=== PATIENT | female | born 1940 | race Caucasian/White ===

== ENCOUNTER 2016-09-09 15:57 | Inpatient (IN) | payer OTHER, MEDICARE ==
[2016-09-09] VITALS (7 sets, daily range): BP systolic 103–143; BP diastolic 50–68; PULSE 76–110; RESP 20–22; TEMP 99.4; O2SAT 88–99
[~2016-09-09] VITALS: Ht 152.4 cm; Wt 62.6 kg
[~2016-09-09 15:57] MED LIST: ADVA250A INH; ALEN70TA39 PO; AMLO10 PO; CEFU1TAB43 PO; CYAN1000P SQ; DOCU1CAP39 PO; DUONSOL2 NEB; FURO20 PO; GABA300C3 PO; HYDR-3129 PO; LEVO75TA3 PO; LISI20 PO; OSEL30 PO; OSEL45 PO; PRED10PA PO; RIVA20 PO; VENTAER INH; Z.0.OXYGEN INH
[2016-09-09] MEDS ORDERED: OXYC1TAB36 PO (16:09)
[2016-09-09] MEDS ORDERED: ALEN1TAB48 PO (16:09)
[2016-09-09] MEDS ORDERED: GABA600T PO (16:09)
[2016-09-09] MEDS ORDERED: AMLO10CA PO (16:09)
[2016-09-09] MEDS ORDERED: MIRTA15 PO (16:09)
[2016-09-09] MEDS ORDERED: XARE20TA PO (16:09)
--- NOTE | 2016-09-09 16:13 | PD ---
HPI Chief Complaint: Respiratory Symptoms Time Seen by Provider: 16:09 Travel History International Travel<30 days: No Contact w/Intl Traveler<30days: No Traveled to known affect area: No History of Present Illness HPI 76-year-old female with history of COPD, presents to the ER today because she woke up this morning, felt very shaky, try to get up, was weak, and short of breath. She was given a BiPAP by EMS but she was not tolerating and, was put on non-rebreather. She reports feeling some improvement currently. She denies any chest pains, fevers, vomiting, or any other symptoms. She states that she is feeling a little better but is still having generalized weakness. Modifying Factors: None Associated Signs & Symptoms: Tremulous, general weakness, shortness of breath Risk Factors: COPD PFSH Past Medical History Arthritis: Yes Anxiety: No Depression: No Cancer: Yes Cardiovascular Problems: Yes High Cholesterol: Yes Chemotherapy: No COPD: Yes Diabetes: No Diminished Hearing: Yes Deep Vein Thrombosis: Yes (x2 ) Fibromyalgia: Yes Gastrointestinal Disorders: No Genitourinary: Yes Hypertension: Yes Immune Disorder: No Implanted Vascular Access Dvce: No Musculoskeletal: Yes Neurologic: No Reproductive: No Respiratory: Yes (HOME O2/OXYGEN DEPENDENT) Radiation Therapy: Yes (FOR GOITER) Thyroid Disease: Yes Menopausal: Yes Tubal Ligation: Yes Past Surgical History Ear Surgery: Yes (INPLANT RT/ CATARACT) Eye Surgery: Yes (CATARACT) Gynecologic Surgery: Yes (TUBAL LIGATION) Tonsillectomy: Yes Other Surgery: Yes Social History Alcohol Use: No Tobacco Use: No (quit 2014 smoked 1 ppd cigs for 57 yrs) Substance Use: No Allergies-Medications (Allergen,Severity, Reaction): Coded Allergies: Azithromycin (Verified Allergy, Severe, STOMACH CRAMPS, 09/09/16) Penicillin (Verified Allergy, Severe, 09/09/16) Reported Meds & Prescriptions Reported Meds & Active Scripts Active Reported Alendronate (Alendronate Sodium) 70 Mg Tab 70 Mg PO Q7D Mirtazapine 15 Mg Tab 15 Mg PO HS Xarelto (Rivaroxaban) 20 Mg Tab 20 Mg PO DAILY Amlodipine-Benazepril 10-20 Mg Cap 1 Cap PO DAILY Gabapentin 600 Mg Tab 600 Mg PO QID Oxycodone-Acetaminophen 10-325 mg Tab 1 Tab PO Q6H PRN Review of Systems Except as stated in HPI: all other systems reviewed are Neg Physical Exam Narrative GENERAL: Well-developed elderly white female patient currently in mild acute distress at rest, tremulous, with nasal cannula, awake and oriented 3. SKIN: Warm and dry. HEAD: Atraumatic. Normocephalic. EYES: Pupils equal and round. No scleral icterus. No injection or drainage. ENT: No nasal bleeding or discharge. Mucous membranes pink and moist. NECK: Trachea midline. No JVD. CARDIOVASCULAR: Regular rate and rhythm. No murmur appreciated. RESPIRATORY: No accessory muscle use. Breath sounds are equal and decreased throughout equal bilaterally. No wheezes, crackles, or rhonchi. GASTROINTESTINAL: Abdomen soft, non-tender, nondistended. Hepatic and splenic margins not palpable. MUSCULOSKELETAL: No obvious deformities. No clubbing. No cyanosis. No edema. NEUROLOGICAL: Awake and alert. No obvious cranial nerve deficits. Motor grossly within normal limits. Normal speech. PSYCHIATRIC: Appropriate mood and affect; insight and judgment normal. Data Data Last Documented VS Vital Signs Date Time Temp Pulse Resp B/P Pulse Ox O2 Delivery O2 Flow Rate FiO2 09/09/16 18:08 99 20 103/50 99 09/09/16 16:52 Nasal Cannula 4 09/09/16 16:01 99.4 Orders Complete Blood Count With Diff (09/09/16 16:09) Comprehensive Metabolic Panel (09/09/16 16:09) B-Type Natriuretic Peptide (09/09/16 16:09) Ckmb (Isoenzyme) Profile (09/09/16 16:09) Troponin I (09/09/16 16:09) Urinalysis - C+S If Indicated (09/09/16 16:09) Blood Culture (09/09/16 16:09) Iv Access Insert/Monitor (09/09/16 16:09) Electrocardiogram (09/09/16 16:09) Ecg Monitoring (09/09/16 16:09) Oximetry (09/09/16 16:09) Oxygen Administration (09/09/16 16:09) Chest, Single Ap (09/09/16 16:09) Sodium Chloride 0.9% Flush (Ns Flush) (09/09/16 16:15) Methylprednisolone So Succ Inj (Solumedr (09/09/16 16:15) Albuterol-Ipratropium Neb (Duoneb Neb) (09/09/16 16:15) Sodium Chlorid 0.9% 500 Ml Inj (Ns 500 M (09/09/16 17:15) Admit Order (Ed Use Only) (09/09/16 18:33) Labs Laboratory Tests Test 09/09/16 16:10 White Blood Count 7.3 TH/MM3 Red Blood Count 3.70 MIL/MM3 Hemoglobin 11.2 GM/DL Hematocrit 35.9 % Mean Corpuscular Volume 97.0 FL Mean Corpuscular Hemoglobin 30.2 PG Mean Corpuscular Hemoglobin 31.1 % Concent Red Cell Distribution Width 15.9 % Platelet Count 215 TH/MM3 Mean Platelet Volume 8.5 FL Neutrophils (%) (Auto) 70.9 % Lymphocytes (%) (Auto) 19.4 % Monocytes (%) (Auto) 7.1 % Eosinophils (%) (Auto) 0.9 % Basophils (%) (Auto) 1.7 % Neutrophils # (Auto) 5.2 TH/MM3 Lymphocytes # (Auto) 1.4 TH/MM3 Monocytes # (Auto) 0.5 TH/MM3 Eosinophils # (Auto) 0.1 TH/MM3 Basophils # (Auto) 0.1 TH/MM3 CBC Comment DIFF FINAL Differential Comment Sodium Level 146 MEQ/L Potassium Level 5.3 MEQ/L Chloride Level 108 MEQ/L Carbon Dioxide Level 35.2 MEQ/L Anion Gap 3 MEQ/L Blood Urea Nitrogen 43 MG/DL Creatinine 1.50 MG/DL Estimat Glomerular Filtration 34 ML/MIN Rate Random Glucose 94 MG/DL Calcium Level 8.8 MG/DL Total Bilirubin 0.3 MG/DL Aspartate Amino Transf 17 U/L (AST/SGOT) Alanine Aminotransferase 16 U/L (ALT/SGPT) Alkaline Phosphatase 31 U/L Total Creatine Kinase 78 U/L Troponin I LESS THAN 0.02 NG/ML B-Type Natriuretic Peptide 284 PG/ML Total Protein 6.1 GM/DL Albumin 3.0 GM/DL [facility] Medical Decision Making Medical Screen Exam Complete: Yes Emergency Medical Condition: Yes Medical Record Reviewed: Yes Interpretation(s) EKG shows normal sinus rhythm at a rate of 71 bpm with occasional PACs and a right bundle branch block pattern. No signs of acute ST-T elevations. Nonspecific inferior T-wave depressions. Laboratory Tests Test 09/09/16 16:10 Red Blood Count 3.70 MIL/MM3 (4.00-5.30) Hemoglobin 11.2 GM/DL (11.6-15.3) Mean Corpuscular Hemoglobin 31.1 % Concent (32.0-36.0) Neutrophils (%) (Auto) 70.9 % (16.0-70.0) Sodium Level 146 MEQ/L (136-145) Potassium Level 5.3 MEQ/L (3.5-5.1) Chloride Level 108 MEQ/L (98-107) Carbon Dioxide Level 35.2 MEQ/L (21.0-32.0) Anion Gap 3 MEQ/L (5-15) Blood Urea Nitrogen 43 MG/DL (7-18) Creatinine 1.50 MG/DL (0.50-1.00) Estimat Glomerular Filtration 34 ML/MIN (>89) Rate Alkaline Phosphatase 31 U/L (45-117) Troponin I LESS THAN 0.02 NG/ML (0.02-0.05) B-Type Natriuretic Peptide 284 PG/ML (0-100) Total Protein 6.1 GM/DL (6.4-8.2) Albumin 3.0 GM/DL (3.4-5.0) Differential Diagnosis General weakness, shortness of breath, hypoxiaCOPD exacerbation versus pneumonia versus CHF versus dehydration versus metabolic issues Narrative Course Chest x-ray did not show signs of acute pneumonia. She was given Solu-Medrol and DuoNeb's with some improvement and shortness of breath. It appears that she does have some underlying COPD exacerbation. Her lab work also shows significant dehydration with elevations in BUN/creatinine creatinine above baseline as well as high sodium. My plan would be to admit her for further evaluation of this point. Case was discussed with Dr. Hopkins for admission. Diagnosis Primary Impression: Hypernatremia Additional Impressions: Dehydration Chronic obstructive pulmonary disease with acute exacerbation Admitting Information Admitting Physician Requests: Admit La Nena Mccullough MD Sep 09, 2016 16:13
[2016-09-09] MEDS ORDERED: methylPREDNISolone SOD SUCC 125 MG/2 ML VIAL IVP ONE (16:15)
[2016-09-09] MEDS ORDERED: SODIUM CHLORIDE 0.9% FLUSH 10 ML FLUSH IVF PRN (16:15)
[2016-09-09] MEDS: RESP: ALBUTEROL 2.5 MG/IPRATROPIUM 0.5 MG NEB (SCH) INH ×2 (16:23→16:26)
[2016-09-09 16:38] LABS: AUTOMATED NEUTROPHIL # 5.2 TH/MM3 (1.8-7.7); BASOPHIL # 0.1 TH/MM3 (0-0.2); BASOPHIL % 1.7 % (0.0-2.0); EOSINOPHIL # 0.1 TH/MM3 (0-0.4); EOSINOPHIL % 0.9 % (0.0-4.0); HEMATOCRIT 35.9 % (35.0-46.0); HEMO FLAGS DIFF FINAL; LYMPH % 19.4 % (9.0-44.0); LYMPHOCYTE # 1.4 TH/MM3 (1.0-4.8); MEAN CORPUSCULAR HEMOGLOBIN 30.2 PG (27.0-34.0); MEAN CORPUSCULAR HGB CONC 31.1 % (32.0-36.0); MONO % 7.1 % (0.0-8.0); NEUT % 70.9 % (16.0-70.0); PLATELET COUNT 215 TH/MM3 (150-450); RED CELL DISTRIBUTION WIDTH 15.9 % (11.6-17.2); WHITE BLOOD COUNT 7.3 TH/MM3 (4.0-11.0)
[2016-09-09 16:46] LABS: CHLORIDE 108 MEQ/L (98-107); POTASSIUM 5.3 MEQ/L (3.5-5.1); SODIUM (NA) 146 MEQ/L (136-145)
[2016-09-09 16:50] LABS: ANION GAP 3 MEQ/L (5-15); BICARBONATE 35.2 MEQ/L (21.0-32.0); BLOOD UREA NITROGEN 43 MG/DL (7-18)
--- NOTE | 2016-09-09 16:52 | RADHPO ---
EXAM DATE/TIME: 09/09/2016 16:19 [facility] COMPARISON: CHEST SINGLE AP, August 26, 2015, 2:50. INDICATIONS : Short of breath. MEDICAL HISTORY : Chronic obstructive pulmonary disease. Hypertension SURGICAL HISTORY : Tubal ligation. ENCOUNTER: Initial ACUITY: 1 day PAIN SCORE: 0/10 LOCATION: Bilateral chest FINDINGS: There is a poor inspiratory result. The heart is enlarged. Patchy infiltrates are again noted within the right lung and left lung base and are unchanged. CONCLUSION: No significant change compared to 08/26/2015. Galen Pierre MD on September 09, 2016 at 16:46 Board Certified Radiologist. This report was verified electronically.
[2016-09-09 16:53] LABS: ALT (GPT) 16 U/L (10-53); AST (GOT) 17 U/L (15-37); GLOMERULAR FILTRATION RATE 34 ML/MIN (>89)
[2016-09-09 16:54] LABS: TOTAL BILIRUBIN ADULT 0.3 MG/DL (0.2-1.0)
[2016-09-09 16:56] LABS: ALKALINE PHOSPHATASE 31 U/L (45-117)
[2016-09-09 16:58] LABS: CREATINE KINASE 78 U/L (26-192)
[2016-09-09] MEDS ORDERED: SODIUM CHLORID 0.9% 500 ML INJ 500 ML IV ONE (17:15)
[2016-09-09] MEDS ORDERED: SODIUM CHLOR 0.9% 1000 ML INJ 1,000 ML IV SCH (19:29)
[2016-09-09] MEDS ORDERED: ACETAMINOPHEN 325 MG TAB PO PRN (19:30)
[2016-09-09] MEDS ORDERED: NALOXONE HCL 0.4 MG/ML AMP IV PRN (19:30)
[2016-09-09] MEDS ORDERED: SODIUM CHLORIDE 0.9% FLUSH 10 ML FLUSH IV FLUSH PRN (19:30)
[2016-09-09] MEDS ORDERED: ONDANSETRON HCL 4 MG/2 ML VIAL IVP PRN (19:30)
[2016-09-09] MEDS: RESP: ALBUTEROL 2.5 MG/IPRATROPIUM 0.5 MG NEB (SCH) NEB (20:23)
[2016-09-09] MEDS ORDERED: HEPARIN SODIUM - IV 10,000 UNITS/10 ML VIAL IV PRN ×2 (20:45)
[2016-09-09] MEDS: SODIUM CHLORIDE 0.9% FLUSH 10 ML FLUSH IV FLUSH SCH (21:00)
[2016-09-09] MEDS: MIRTAZAPINE 15 MG TAB PO SCH (21:20)
[2016-09-09 21:29] LABS: BLOOD, URINE NEG (NEG); GLUCOSE,URINE NEG (NEG); KETONE, URINE NEG (NEG); PH, URINE 5.5 (5.0-8.5)
[2016-09-09 21:34] LABS: NITRITE,URINE POS (NEG)
[2016-09-09 21:39] LABS: METHOD OF COLLECTION CATH; URINE COLOR YELLOW (YELLW/STRAW); WBC, URINE 0-2 /hpf (0-5)
[2016-09-09 21:40] LABS: BACTERIA, URINE MANY /hpf; COMMENT (UR) CULTURE INDICATED; CULTURE IF INDICATED CULTURE INDICATED; SQUAMOUS EPITHELIAL CELL URINE 0-2 /hpf (0-5)
[2016-09-09] MEDS: HEPARIN 25,000 UNITS-D5W 250 ML - PREMIX IV SCH (21:53)
[2016-09-09] MEDS ORDERED: LEVOFLOXACIN 750 MG PREMIX INJ 150 ML IV SCH (23:00)
[2016-09-09] MEDS: oxyCODONE/ACETAMINOPHEN 10 MG/325 MG TAB PO PRN (23:34)
[2016-09-09 23:51] LABS: POTASSIUM 5.2 MEQ/L (3.5-5.1)
[2016-09-10] VITALS (13 sets, daily range): BP systolic 129–151; BP diastolic 73–81; PULSE 78–92; RESP 20–26; TEMP 96.5–99.3; O2SAT 85–95
[2016-09-10 00:22] LABS: BICARBONATE 31.8 MEQ/L (21.0-32.0)
[2016-09-10] MEDS: RESP: ALBUTEROL 2.5 MG/IPRATROPIUM 0.5 MG NEB (PRN) NEB ×2 (00:50→04:24)
--- NOTE | 2016-09-10 02:39 | RADHPO ---
EXAM DATE/TIME: 09/10/2016 02:26 [facility] COMPARISON: CHEST SINGLE AP, September 09, 2016, 16:19. INDICATIONS : Shortness of breath. MEDICAL HISTORY : Chronic obstructive pulmonary disease. Hypertension. SURGICAL HISTORY : Tubal ligation. ENCOUNTER: Subsequent ACUITY: 2 days PAIN SCORE: Non-responsive. LOCATION: Left chest FINDINGS: There is cardiomegaly, interstitial prominence and patchy basilar airspace disease unchanged. Cardiom egaly and aortic calcification noted. Degenerative changes of the spine. CONCLUSION: No significant change has occurred. Kumar Leggett MD on September 10, 2016 at 2:37 Board Certified Radiologist. This report was verified electronically.
[2016-09-10 04:44] LABS: AUTOMATED NEUTROPHIL # 4.6 TH/MM3 (1.8-7.7); BASOPHIL # 0.1 TH/MM3 (0-0.2); HEMATOCRIT 33.9 % (35.0-46.0); LYMPH % 6.9 % (9.0-44.0); LYMPHOCYTE # 0.4 TH/MM3 (1.0-4.8); MEAN CELL VOLUME 95.7 FL (80.0-100.0); MEAN CORPUSCULAR HEMOGLOBIN 29.7 PG (27.0-34.0); MONO % 0.7 % (0.0-8.0); NEUT % 90.4 % (16.0-70.0); PLATELET COUNT 189 TH/MM3 (150-450); RED BLOOD COUNT 3.54 MIL/MM3 (4.00-5.30); RED CELL DISTRIBUTION WIDTH 15.7 % (11.6-17.2); WHITE BLOOD COUNT 5.1 TH/MM3 (4.0-11.0)
[2016-09-10 05:08] LABS: HEMO FLAGS AUTO DIFF
[2016-09-10 05:10] LABS: POTASSIUM 5.1 MEQ/L (3.5-5.1)
[2016-09-10 05:15] LABS: BICARBONATE 30.4 MEQ/L (21.0-32.0)
[2016-09-10] MEDS: oxyCODONE/ACETAMINOPHEN 10 MG/325 MG TAB PO PRN ×2 (05:24→13:36)
[2016-09-10 05:40] LABS: APTT (PATIENT) 93.1 SEC (24.3-30.1)
[2016-09-10 06:23] LABS: PLATELET ESTIMATE SMEAR NORMAL (NORMAL); PLATELET MORPHOLOGY NORMAL (NORMAL); SCAN/DIFF AUTO DIFF CONFIRMED
[2016-09-10] MEDS: RESP: ALBUTEROL 2.5 MG/IPRATROPIUM 0.5 MG NEB (SCH) NEB ×4 (07:20→19:41)
[2016-09-10 08:15] LABS: BLOOD GAS BASE EXCESS 5.5 mmol/L (-2-2); BLOOD GAS HCO3 31 mmol/L (22-26); BLOOD GAS O2 HGB SATURATION 84 % (90-100); BLOOD GAS OXYGEN CONTENT 12.5 Vol % (12.0-20.0); BLOOD GAS PCO2 53 mmHG (38-42); BLOOD GAS PO2 50 mmHG (61-120); BLOOD GAS TOTAL HGB 10.5 G/DL (12.0-16.0); TEMP CORR TO 98.6
[2016-09-10 08:17] LABS: CRITICAL VALUE YES; DRAW SITE RT RADIAL; LITER FLOW 6 L/M; NUMBER OF ARTERIAL PUNCTURES 1; OXYGEN DEVICE NASAL CANNULA; STAT YES; ULNAR PULSE PRESENT
[2016-09-10] MEDS: LISINOPRIL 20 MG TAB PO SCH ×2 (08:37→08:45)
[2016-09-10] MEDS: GABAPENTIN 300 MG CAP PO SCH (08:37)
[2016-09-10] MEDS: SODIUM CHLORIDE 0.9% FLUSH 10 ML FLUSH IV FLUSH SCH ×2 (08:37→21:00)
[2016-09-10] MEDS ORDERED: SODIUM POLYSTYRENE SULFONATE SUSP 15 GM/60 ML CUP PO ONE (09:00)
[2016-09-10] MEDS ORDERED: NON-FORMULARY DRUG (Amlodipine-Benazepril 1 CAP) PO SCH (09:00)
[2016-09-10] MEDS ORDERED: RIVAROXABAN 20 MG TAB PO SCH (09:00)
[2016-09-10] MEDS ORDERED: SODIUM CHLOR 0.9% 1000 ML INJ 1,000 ML IV SCH (10:30)
--- NOTE | 2016-09-10 10:40 | EKG ---
Date Performed: 09/09/2016 Time Performed: 16:01:18 PTAGE: 76 years EKG: Sinus rhythm with PAC(s) Left axis deviation RBBB with left anterior fascicular block Possible anterior infarct - age undetermined Inferior T wave changes are nonspecific Low QRS voltages in precordial leads Abnorm al ECG PREVIOUS TRACING : 08/25/2015 05.53 DOCTOR: Av Argueta Interpretating Date/Time 09/10/2016 10:39:08
--- NOTE | 2016-09-10 11:06 | HHI.HP ---
HPI Service [facility] Hospitalists Primary Care Physician Fernanda Fox MD Admission Diagnosis COPD exacerbation/dehydration/hypernatremia Diagnoses: Chief Complaint: Involuntary shaking SOB Weakness Travel History International Travel<30 Days: No Contact w/Intl Traveler <30 Da: No Traveled to Known Affected Are: No History of Present Illness This is 76-year-old female with a past medical history is significant for oxygen dependent COPD, hypertension, hypothyroidism, history of prior respiratory failure with intubation, pneumonia 1 year ago, polycystic kidney disease and CHF who presents to [facility] ED with complaints of uncontrollable shaking, slurred speech, weakness and shortness of breath. She was brought in by EMS on a BiPAP which she did not tolerate well and was placed on a nonrebreather. Patient denies any recent increase in cough or sputum production. She denies any recent illness including fever or chills, nausea/ vomiting, diarrhea or any other symptoms. While on the floor, patient developed burning chest pain across the anterior chest. In the ED, EKG revealed normal sinus rhythm with a rate of 71, occasional PACs and a right bundle branch block pattern, no signs of acute ST-T elevations and nonspecific inferior T-wave depressions. X-ray did not show any signs of acute pneumonia. She was given Solu-Medrol and DuoNeb nebs in the ED with some improvement in her shortness of breath. She is tachycardic with a low-grade temp of 99.3. White count is normal at 7.2 but she does have a left shift. Review of Systems 10 point review of systems completed and all pertinents negative except as stated in history of present illness Past Family Social History Past Medical History COPD - O2 dependent Prior respiratory failure with intubation Pneumonia CHF (grade I diastolic dysfunction) HTN Polycystic kidney disease DVT (diagnosed March 23) anemia dyslipidemia tobacco use fibromyalgia / arthritis Hx of Goiter s/p radiation therapy with subsequent hypothyroidism DJD spine Fatty liver with cholelithiasis Diverticulosis Past Surgical History Tonsillectomy Cataract surgery Tubal ligation Reported Medications Alendronate (Alendronate Sodium) 70 Mg Tab 70 Mg PO Q7D Mirtazapine 15 Mg Tab 15 Mg PO HS Xarelto (Rivaroxaban) 20 Mg Tab 20 Mg PO DAILY Amlodipine-Benazepril 10-20 Mg Cap 1 Cap PO DAILY Gabapentin 600 Mg Tab 600 Mg PO QID Oxycodone-Acetaminophen 10-325 mg Tab 1 Tab PO Q6H PRN Allergies: Coded Allergies: Azithromycin (Verified Allergy, Severe, STOMACH CRAMPS, 09/09/16) Penicillin (Verified Allergy, Severe, 09/09/16) Active Ordered Medications Current Medications Medications (Trade) Dose Ordered Sig/Lili Route Start Time Stop Time Status Last Admin (NS Flush) 2 ml UNSCH PRN IV FLUSH 09/09/16 19:30 (NS Flush) 2 ml BID IV FLUSH 09/09/16 21:00 (Tylenol) 650 mg Q4H PRN PO 09/09/16 19:30 (Zofran Inj) 4 mg Q6H PRN IVP 09/09/16 19:30 (Narcan Inj) 0.4 mg UNSCH PRN IV 09/09/16 19:30 (Neurontin) 600 mg DAILY PO 09/10/16 09:00 09/10/16 08:37 (Remeron) 15 mg HS PO 09/09/16 21:00 09/09/16 21:20 (Percocet 10-325 Mg) 1 tab Q6H PRN PO 09/09/16 19:30 09/10/16 05:24 (Norvasc) 10 mg DAILY PO 09/10/16 09:00 09/10/16 08:37 Lisinopril 20 mg 20 mg DAILY PO 09/10/16 09:00 (Heparin-D5W Inj) 250 ml @ 0 mls/hr TITRATE IV 09/09/16 20:45 09/09/16 21:53 (Heparin Inj) 5,000 units UNSCH PRN IV 09/09/16 20:45 Heparin Sodium (Porcine) 2500 units 2,500 units UNSCH PRN IV 09/09/16 20:45 (Levaquin 750 Mg Premix Inj) 150 ml @ 100 mls/hr Q24H IV 09/09/16 23:00 09/09/16 23:24 (Catapres) 0.1 mg Q6H PRN PO 09/10/16 09:00 Family History Family medical history noncontributory Social History Patient is a history of heavy tobacco use of one pack per day for 57 years but quit in 2013. She reports rare alcohol consumption a glass of wine. She denies illicit drug use. Physical Exam Vital Signs Vital Signs Date Time Temp Pulse Resp B/P Pulse Ox O2 Delivery O2 Flow Rate FiO2 09/10/16 08:55 91 Venturi Mask 50 09/10/16 08:00 98.2 87 20 139/79 86 09/10/16 07:22 89 Nasal Cannula 6.00 09/10/16 06:53 99.3 85 25 129/73 85 09/10/16 04:31 90 Nasal Cannula 5.00 09/10/16 04:28 90 Nasal Cannula 5.00 09/10/16 04:00 99.2 78 25 139/79 91 09/10/16 01:00 89 Nasal Cannula 5.00 09/10/16 00:00 97.2 84 26 148/81 92 09/09/16 23:30 92 Nasal Cannula 4.00 09/09/16 23:30 84 09/09/16 23:00 86 20 143/68 89 Nasal Cannula 4 09/09/16 21:37 81 87 Nasal Cannula 4 09/09/16 20:27 88 Nasal Cannula 4.00 09/09/16 18:08 99 20 103/50 99 09/09/16 16:52 76 20 113/55 96 Nasal Cannula 4 09/09/16 16:11 93 09/09/16 16:11 Non-Rebreather 10 09/09/16 16:01 99.4 110 22 136/58 89 Physical Exam GENERAL: This is a well-nourished, well-developed patient, in no apparent distress. SKIN: No rashes, ecchymoses or lesions. Cool and dry. HEAD: Atraumatic. Normocephalic. No temporal or scalp tenderness. EYES: Pupils equal round and reactive. Extraocular motions intact. No scleral icterus. No injection or drainage. ENT: Nose without bleeding, purulent drainage or septal hematoma. Throat without erythema, tonsillar hypertrophy or exudate. Uvula midline. Airway patent. NECK: Trachea midline. No lymphadenopathy. Supple, nontender, no meningeal signs. CARDIOVASCULAR: Sinus tachycardia with ectopic beat. RESPIRATORY: Diminished breath sounds. Bilateral diffuse inspiratory/ expiratory wheezing. GASTROINTESTINAL: Abdomen soft, non-tender, nondistended. No hepato-splenomegaly , or palpable masses. No guarding. MUSCULOSKELETAL: Extremities without clubbing, cyanosis, or edema. No joint tenderness, effusion, or edema noted. No calf tenderness. NEUROLOGICAL: Awake, alert, oriented. Moves all extremities. No focal neurological deficit. Speech appears normal. Laboratory Laboratory Tests Test 09/09/16 09/09/16 09/09/16 09/10/16 16:10 :17 22:55 04:20 White Blood Count 7.3 5.1 Red Blood Count 3.70 3.54 Hemoglobin 11.2 10.5 Hematocrit 35.9 33.9 Mean Corpuscular Volume 97.0 95.7 Mean Corpuscular Hemoglobin 30.2 29.7 Mean Corpuscular Hemoglobin 31.1 31.0 Concent Red Cell Distribution Width 15.9 15.7 Platelet Count 215 189 Mean Platelet Volume 8.5 8.6 Neutrophils (%) (Auto) 70.9 90.4 Lymphocytes (%) (Auto) 19.4 6.9 Monocytes (%) (Auto) 7.1 0.7 Eosinophils (%) (Auto) 0.9 0.0 Basophils (%) (Auto) 1.7 2.0 Neutrophils # (Auto) 5.2 4.6 Lymphocytes # (Auto) 1.4 0.4 Monocytes # (Auto) 0.5 0.0 Eosinophils # (Auto) 0.1 0.0 Basophils # (Auto) 0.1 0.1 CBC Comment DIFF FINAL AUTO DIFF Differential Comment AUTO DIFF CONFIRMED Sodium Level 146 146 147 Potassium Level 5.3 5.2 5.1 Chloride Level 108 108 108 Carbon Dioxide Level 35.2 31.8 30.4 Anion Gap 3 6 9 Blood Urea Nitrogen 43 40 36 Creatinine 1.50 1.40 1.20 Estimat Glomerular Filtration 34 36 44 Rate Random Glucose 94 223 148 Calcium Level 8.8 8.6 8.6 Total Bilirubin 0.3 Aspartate Amino Transf 17 (AST/SGOT) Alanine Aminotransferase 16 (ALT/SGPT) Alkaline Phosphatase 31 Total Creatine Kinase 78 Troponin I LESS THAN 0.02 B-Type Natriuretic Peptide 284 Total Protein 6.1 Albumin 3.0 Urine Collection Type CATH Urine Color YELLOW Urine Turbidity CLEAR Urine pH 5.5 Urine Specific [place] 1.027 Urine Protein NEG Urine Glucose (UA) NEG Urine Ketones NEG Urine Occult Blood NEG Urine Nitrite POS Urine Bilirubin NEG Urine Leukocyte Esterase NEG Urine WBC 0-2 Urine WBC Clumps RARE Urine Squamous Epithelial 0-2 Cells Urine Bacteria MANY Urine Hyaline Casts 3-5 Microscopic Urinalysis Comment CULTURE INDICATED Platelet Estimate NORMAL Platelet Morphology Comment NORMAL Activated Partial 93.1 Thromboplast Time Test 09/10/16 08:07 Blood Gas Puncture Site RT RADIAL Blood Gas Patient Temperature 98.6 Blood Gas HCO3 31 Blood Gas Base Excess 5.5 Blood Gas Oxygen Saturation 84 Arterial Blood pH 7.38 Arterial Blood Partial 53 Pressure CO2 Arterial Blood Partial 50 Pressure O2 Arterial Blood Oxygen Content 12.5 Arterial Blood 2.0 Carboxyhemoglobin Arterial Blood Methemoglobin 1.0 Blood Gas Hemoglobin 10.5 Oxygen Delivery Device NASAL CANNULA Blood Gas Liter Flow 6 Date/Time Procedure Status Source Growth 09/09/16 21:17 Urine Culture Received Urine Catheterized Urine Pending 09/09/16 16:10 Aerobic Blood Culture Received Blood Peripheral Pending 09/09/16 16:10 Anaerobic Blood Culture Received Blood Peripheral Pending Result Diagram: 09/10/16 0420 09/10/16 0420 Imaging Last 48 hours Impressions Chest X-Ray 09/10/16 0000 Signed Impressions: Service Date/Time: Saturday, September 10, 2016 02:26 - CONCLUSION: No significant change has occurred. Kumar Leggett MD Chest X-Ray 09/09/16 1609 Signed Impressions: Service Date/Time: Friday, September 09, 2016 16:19 - CONCLUSION: No significant change compared to 08/26/2015. Galen Pierre MD Assessment and Plan Assessment and Plan 76-year-old female with a past medical history is significant for oxygen dependent COPD, hypertension, hypothyroidism, history of prior respiratory failure with intubation, pneumonia 1 year ago, polycystic kidney disease and CHF who presents to [facility] ED with complaints of uncontrollable shaking , slurred speech, weakness and shortness of breath. Acute on chronic hypoxic hypercapnic respiratory failure in a patient with oxygen-dependent COPD and history of pneumonia 1 year ago - VQ scan ordered to rule out pulmonary embolus. On Heparin drip. If high probability continue heparin, if low probability plan to discontinue heparin drip. Bilateral duplex ultrasound rule out DVT. - Last ABG: PH 7.376, PCO2 53.1, PO2 49.9, O2 saturation 84%, continue patient on nonrebreather - Chest x-ray personally interpreted showing patchy infiltrates in the right and left lung base. Repeat chest x-ray was obtained today and also personally interpreted showing no changes with from previous examination. AECOPD with left shift - Continue Levaquin - DuoNeb scheduled - Supplemental oxygen - Resume home bronchodilator therapy Chest pain - 12-lead EKG obtained reveals no ischemic changes, personally interpreted - Continue telemetry - Cycle cardiac enzymes Hypernatremia - Suspected dehydration - gentle IV fluids - Repeat labs in a.m. Hyperkalemia - Improved, 5.3 -> 5.1 - Hold ACEI - Kayexalate given today - Continue with albuterol treatments - A.m. labs to monitor BILL - Improved 1.50 -> 1.20 - Hold ACEI - Gentle IV fluid hydration UTI - on IV Levaquin - Follow up on culture results AMS - having hallucinations - c/o slurred speech and repeating herself - EEG, Carotid dopplers, CT head - Will follow up on results of testing HTN and History of CHF, grade 1 diastolic dysfunction - Last echocardiogram in the system 08/2014 shows an EF of 55-60%, no regional wall motion abnormalities - Monitor for evidence of fluid overload - BNP slightly elevated at 284 History of chronic pain syndrome secondary to fibromyalgia, arthritis and DDD of the spine - Resume home medication of Neurontin 600 mg every 6 hours History of DVT - Previously on Xarelto - As above, concern for possible PE. Bilateral lower extremity duplex scan ordered. Will follow-up on results. - Currently on heparin drip. Once heparin discontinued, will resume patient's home Xarelto. History of polycystic kidney disease - Improving BUN/creatinine. Will continue to monitor. - Continue Fuentes catheter for strict I&O's in this critically ill patient - Continue with gentle IV hydration Anemia - chronic - appears stable - continue to monitor DVT/GI prophylaxis - On heparin drip - PPI Written by Olga Lidia Camacho PA-C acting as scribe for Dr. Hopkins on 09/10/16 at 10:30. Physician Certification 2 Midnight Certification Type: Admission for Inpatient Services Order for Inpatient Services The services are ordered in accordance with Medicare regulations or non- Medicare payer requirements, as applicable. In the case of services not specified as inpatient-only, they are appropriately provided as inpatient services in accordance with the 2-midnight benchmark. Estimated LOS (days): 3 3 days is the estimated time the patient will need to remain in the hospital, assuming treatment plan goals are met and no additional complications. Post-Hospital Plan: Not yet determined Olga Lidia Camacho Sep 10, 2016 10:54
--- NOTE | 2016-09-10 13:09 | RADHPO ---
EXAM DATE/TIME: 09/10/2016 12:36 [facility] COMPARISON: CHEST SINGLE AP, September 10, 2016, 2:26. INDICATIONS : Shortness of breath for 2 days. DOSE: 8.1 mCi Tc99m MAA IV 0.4 mCi Tc99m DTPA aerosol MEDICAL HISTORY : Chronic obstructive pulmonary disease. Renal insufficiency. Hypertension. Goiter and smoking history. SURGICAL HISTORY : Tonsillectomy. Tubal ligation. Hysterectomy. ENCOUNTER: Initial ACUITY: 2 days PAIN SCALE: 2/10 LOCATION: Bilateral chest TECHNIQUE: Following five minutes of tidal breathing of DTPA aerosol, planar images of the lungs were performed in eight projections. The patient was then injected with MAA, and eight-view perfusion scan was perf ormed. FINDINGS: There is heterogeneous ventilation bilaterally. The perfusion lung scan demonstrates a homogenous pattern of uptake in both lungs. No segmental or s ubsegmental defects are seen. CONCLUSION: 1. Normal perfusion scan. No significant defect is seen. 2. Heterogeneous ventilation with central clumping of tracer suggesting COPD. Levi Blunt MD on September 10, 2016 at 13:05 Board Certified Radiologist. This report was verified electronically.
[2016-09-10] MEDS: methylPREDNISolone SOD SUCC 40 MG/1 ML VIAL IV SCH ×2 (13:21→20:37)
--- NOTE | 2016-09-10 15:58 | RADHPO ---
EXAM DATE/TIME: 09/10/2016 13:13 [facility] COMPARISON: No previous studies available for comparison. INDICATIONS : Slurred speech. MEDICAL HISTORY : Chronic obstructive pulmonary disease. Hypercholesterolemia. Hypothyroidism. DVT. SURGICAL HISTORY : Tubal ligation. Tonsillectomy. ENCOUNTER: Initial ACUITY: 1 day PAIN SCORE: 5/10 LOCATION: Bilateral neck PEAK SYSTOLIC VELOCITIES (cm/sec): ICA/CCA RATIO: Right: 0.5 Left: 1.1 ICA: Right: 117 Left: 101 CCA: Right: 234 Left: 94 ECA: Right: 131 Left: 82 VERTEBRAL: Right: 72 antegrade Left: 58 antegrade Elevated flow velocities and ICA/CCA ratios have been found to correlate with increased degrees of vessel stenosis, calculated as percentage of diameter relative to a normal segment of distal ICA/CCA FINDINGS: RIGHT CAROTID: Mild eccentric plaquing. No significant stenosis is visualized. The waveforms are within normal limi ts. LEFT CAROTID: Mild-moderate eccentric calcific plaquing. No significant stenosis is visualized. The waveforms are within normal limits. VERTEBRAL ARTERIES: Antegrade flow is seen in both vertebral arteries. MISCELLANEOUS: None. CONCLUSION: No evidence of flow-limiting carotid stenosis. Jasper Bautista MD on September 10, 2016 at 15:55 Board Certified Radiologist. This report was verified electronically.
[2016-09-10 16:00] LABS: APTT (PATIENT) 60.6 SEC (24.3-30.1)
--- NOTE | 2016-09-10 18:13 | RADHPO ---
EXAM DATE/TIME: 09/10/2016 17:32 [place] COMPARISON: CT BRAIN W/O CONTRAST, December 08, 2014, 14:44. INDICATIONS : Altered mental status. RADIATION DOSE: 70.44 CTDIvol (mGy) MEDICAL HISTORY : Deep venous thrombosis. Renal insufficiency. Chronic obstructive pulmonary disease.Hypertension. SURGICAL HISTORY : Tubal ligation. Tonsillectomy.Cataract. ENCOUNTER: Initial ACUITY: 1 day PAIN SCALE: 0/10 LOCATION: cranial TECHNIQUE: Multiple contiguous axial images were obtained of the head. Using automated exposure control and adj ustment of the mA and/or kV according to patient size, radiation dose was kept as low as reasonably a chievable to obtain optimal diagnostic quality images. FINDINGS: There is no evidence for intracranial hemorrhage, mass effect, mass lesions, edema, or extra-axial fl uid collections. The visualized bony structures appear intact. The ventricles are normal size for t he patient's age. There are no signs of acute infarction for technique. There is old encephalomalaci a in the right posterior frontal lobe and not changed. CONCLUSION: There is no evidence of any significant hemorrhage or mass effect. Anuradha Anthony MD on September 10, 2016 at 18:10 Board Certified Radiologist. This report was verified electronically.
--- NOTE | 2016-09-10 21:20 | MG ---
cc: DAGO LINDSEY MD Lab No: Date: 09/10/2016 Age: Sex: F Race: EEG NUMBER [id number] DATE OF 1940 INDICATION A 76-year-old with a history of fibromyalgia, renal insufficiency, wheezing, arthritis, osteoporosis, weakness, tremors. DESCRIPTION Mixed frequency EEG with alpha, theta and delta rhythms occurring, 20-50 microvolts. Bursts of 2-3 Hz delta with some sharp transients occurring. There was sharp transients left temporal region epoch 88. Good EEG variability reactivity. Reduced driving with photic stimulation. Single lead EKG showing. INTERPRETATION Mild encephalopathy, rare tiny sharp transients as noted above. No active seizure activity. Clinical correlation. Dago Lindsey MD MG/KK /8:55 PM /9:07 PM MTDD
[2016-09-10 21:57] LABS: APTT (PATIENT) 63.4 SEC (24.3-30.1)
[2016-09-10] MEDS: MIRTAZAPINE 15 MG TAB PO SCH (22:39)
[2016-09-11] VITALS (12 sets, daily range): BP systolic 120–157; BP diastolic 69–87; PULSE 67–86; RESP 16–20; TEMP 97.4–98.5; O2SAT 84–96
[2016-09-11] MEDS: HEPARIN 25,000 UNITS-D5W 250 ML - PREMIX IV SCH (00:35)
[2016-09-11] MEDS: methylPREDNISolone SOD SUCC 40 MG/1 ML VIAL IV SCH ×3 (03:50→21:09)
[2016-09-11] MEDS: oxyCODONE/ACETAMINOPHEN 10 MG/325 MG TAB PO PRN ×3 (05:01→17:59)
[2016-09-11] MEDS: cloNIDine HCL 0.1 MG TAB PO PRN (05:01)
[2016-09-11 05:51] LABS: AUTOMATED NEUTROPHIL # 6.7 TH/MM3 (1.8-7.7); BASOPHIL % 0.1 % (0.0-2.0); EOSINOPHIL % 0.1 % (0.0-4.0); HEMATOCRIT 35.1 % (35.0-46.0); HEMO FLAGS DIFF FINAL; LYMPH % 9.4 % (9.0-44.0); LYMPHOCYTE # 0.7 TH/MM3 (1.0-4.8); MEAN CORPUSCULAR HEMOGLOBIN 30.9 PG (27.0-34.0); MEAN CORPUSCULAR HGB CONC 33.2 % (32.0-36.0); MONO % 1.7 % (0.0-8.0); NEUT % 88.7 % (16.0-70.0); PLATELET COUNT 200 TH/MM3 (150-450); RED BLOOD COUNT 3.77 MIL/MM3 (4.00-5.30); RED CELL DISTRIBUTION WIDTH 14.6 % (11.6-17.2); WHITE BLOOD COUNT 7.5 TH/MM3 (4.0-11.0)
[2016-09-11 06:08] LABS: CHLORIDE 107 MEQ/L (98-107); POTASSIUM 4.4 MEQ/L (3.5-5.1); SODIUM (NA) 146 MEQ/L (136-145)
[2016-09-11 06:14] LABS: ANION GAP 8 MEQ/L (5-15); BICARBONATE 30.7 MEQ/L (21.0-32.0); MAGNESIUM 2.1 MG/DL (1.5-2.5)
[2016-09-11 06:18] LABS: APTT (PATIENT) 55.8 SEC (24.3-30.1)
[2016-09-11 06:20] LABS: BLOOD UREA NITROGEN 23 MG/DL (7-18); GLOMERULAR FILTRATION RATE 59 ML/MIN (>89)
[2016-09-11] MEDS: RESP: ALBUTEROL 2.5 MG/IPRATROPIUM 0.5 MG NEB (SCH) NEB ×4 (07:42→19:29)
[2016-09-11] MEDS: SODIUM CHLORIDE 0.9% FLUSH 10 ML FLUSH IV FLUSH SCH ×2 (09:00→21:00)
[2016-09-11] MEDS: GABAPENTIN 300 MG CAP PO SCH (09:18)
[2016-09-11 10:07] LABS: FERRITIN 34 NG/ML (8-252); TRANSFERRIN IRON PROFILE 212 MG/DL (200-360)
--- NOTE | 2016-09-11 11:32 | HHI.PR ---
Subjective Remarks Follow-up on patient with COPD exacerbation. Patient states she feels much better today. No complaints of chest pain. Less shortness of breath. Denies any abdominal pain, diarrhea, nausea or vomiting. (+)BM earlier today. Objective Vitals Vital Signs Date Time Temp Pulse Resp B/P Pulse Ox O2 Delivery O2 Flow Rate FiO2 09/11/16 10:22 98.2 71 16 157/84 88 09/11/16 07:48 94 Nasal Cannula 4.00 09/11/16 07:46 95 Venturi Mask 50 09/11/16 04:00 97.9 80 18 121/87 96 09/11/16 00:00 97.4 86 18 145/77 96 09/10/16 22:00 88 09/10/16 20:00 96.5 84 20 151/81 94 09/10/16 19:43 95 Venturi Mask 50 09/10/16 16:06 90 Venturi Mask 50 09/10/16 12:00 97.6 92 22 142/77 87 I/O 09/10/16 09/10/16 09/10/16 09/11/16 09/11/16 09/11/16 07:00 15:00 23:00 07:00 15:00 23:00 Intake Total 491 ml 625 ml 240 ml 1135 ml Output Total 500 ml 950 ml 600 ml 650 ml Balance -9 ml -325 ml -360 ml 485 ml Intake Oral 625 ml 240 ml 60 ml IV Total 491 ml 1075 ml Output Urine Total 500 ml 950 ml 600 ml 650 ml # Bowel Movements 0 0 Result Diagram: 09/11/16 0450 09/11/16 0450 Imaging Last 72 hours Impressions Lung Scan-VQ Nuclear Medicine 09/10/16 0000 Signed Impressions: Service Date/Time: Saturday, September 10, 2016 12:36 - CONCLUSION: 1. Normal perfusion scan. No significant defect is seen. 2. Heterogeneous ventilation with central clumping of tracer suggesting COPD. Levi Blunt MD Head CT 09/10/16 0000 Signed Impressions: Service Date/Time: Saturday, September 10, 2016 17:32 - CONCLUSION: There is no evidence of any significant hemorrhage or mass effect. Anuradha Anthony MD Chest X-Ray 09/10/16 0000 Signed Impressions: Service Date/Time: Saturday, September 10, 2016 02:26 - CONCLUSION: No significant change has occurred. Kumar Leggett MD Carotid Artery Ultrasound 09/10/16 0000 Signed Impressions: Service Date/Time: Saturday, September 10, 2016 13:13 - CONCLUSION: No evidence of flow-limiting carotid stenosis. Jasper Bautista MD Chest X-Ray 09/09/16 1609 Signed Impressions: Service Date/Time: Friday, September 09, 2016 16:19 - CONCLUSION: No significant change compared to 08/26/2015. Galen Pierre MD Objective Remarks GENERAL: This is a well-nourished, well-developed patient, in no apparent distress. A&Ox3. Daughters are at the bedside. SKIN: No rashes, ecchymoses or lesions. Warm and dry. HEAD: Atraumatic. Normocephalic. EYES: EOMI. CARDIOVASCULAR: Regular rate and rhythm with no murmur, rub or gallop. RESPIRATORY: Diminished breath sounds but improved. Scattered rhonchi. GASTROINTESTINAL: Abdomen soft, non-tender, nondistended. No hepato-splenomegaly , or palpable masses. No guarding. MUSCULOSKELETAL: Extremities without clubbing, cyanosis, or edema. No joint tenderness, effusion, or edema noted. No calf tenderness. NEUROLOGICAL: Awake, alert, oriented. Moves all extremities. No focal neurological deficit. Speech appears normal. Medications and IVs Current Medications Medications (Trade) Dose Ordered Sig/Lili Route Start Time Stop Time Status Last Admin (NS Flush) 2 ml UNSCH PRN IV FLUSH 09/09/16 19:30 (NS Flush) 2 ml BID IV FLUSH 09/09/16 21:00 (Tylenol) 650 mg Q4H PRN PO 09/09/16 19:30 (Zofran Inj) 4 mg Q6H PRN IVP 09/09/16 19:30 (Narcan Inj) 0.4 mg UNSCH PRN IV 09/09/16 19:30 (Neurontin) 600 mg DAILY PO 09/10/16 09:00 09/11/16 09:18 (Remeron) 15 mg HS PO 09/09/16 21:00 09/10/16 22:39 (Percocet 10-325 Mg) 1 tab Q6H PRN PO 09/09/16 19:30 09/11/16 11:10 (Norvasc) 10 mg DAILY PO 09/10/16 09:00 09/11/16 09:18 (Prinivil) 20 mg DAILY PO 09/10/16 09:00 Hold (Catapres) 0.1 mg Q6H PRN PO 09/10/16 09:00 09/11/16 05:01 Methylprednisolone Sodium Succinate 40 mg 40 mg Q8H IV 09/10/16 12:00 09/11/16 11:09 (Levaquin 750 Mg Premix Inj) 150 ml @ 100 mls/hr Q48H IV 09/11/16 23:00 (Xarelto) 20 mg DAILY PO 09/12/16 09:00 Urinary Catheter: Yes Assessment to: Remove Date of Insertion: Sep 10, 2016 Date of Removal: Sep 11, 2016 A/P Assessment and Plan 76-year-old female with a past medical history is significant for oxygen dependent COPD, hypertension, hypothyroidism, history of prior respiratory failure with intubation, pneumonia 1 year ago, polycystic kidney disease and CHF who presents to [facility] ED with complaints of uncontrollable shaking , slurred speech, weakness and shortness of breath. Acute on chronic hypoxic hypercapnic respiratory failure in a patient with oxygen-dependent COPD and history of pneumonia 1 year ago - Improved - VQ scan negative for PE. Discontinue Heparin drip. - Continue with supplemental oxygen. Patient O2 sats at 94% on 4 L. - Chest x-ray personally interpreted showing patchy infiltrates in the right and left lung base. Repeat chest x-ray was obtained today and also personally interpreted showing no changes with from previous examination. - Will need to address home oxygen status prior to discharge AECOPD with left shift - Continue Levaquin - DuoNeb scheduled - Supplemental oxygen - Continue home bronchodilator therapy Positive blood cultures - Patient with gram-positive cocci in one aerobic and one anaerobic blood culture. Possible contamination. Follow-up on I&D. - Patient improving clinically while currently on Levaquin. Afebrile and normal white count. Chest pain - No complaints of chest pain overnight - 12-lead EKG obtained reveals no ischemic changes, personally interpreted - Cardiac enzymes negative 3 - Discontinue telemetry Hypernatremia - improvinig - Suspected dehydration - gentle IV fluids - Repeat labs in a.m. Hyperkalemia - Resolved BILL - Resolved UTI - Urine culture positive for Escherichia coli - Continue on IV Levaquin - D/C Fuentes AMS - Resolved, patient's mentation back to baseline. - Patient with complaints of hallucinations, informed by nursing staff, now resolved. Suspected due to infection and hypoxia. - CT that shows no evidence of significant hemorrhage or mass effect. - Carotid ultrasound shows no evidence of stenosis. - EEG shows mild encephalopathy, no active seizure activity. HTN and History of CHF, grade 1 diastolic dysfunction - Last echocardiogram in the system 08/2014 shows an EF of 55-60%, no regional wall motion abnormalities - Continue to monitor for evidence of fluid overload - BNP slightly elevated at 284 History of chronic pain syndrome secondary to fibromyalgia, arthritis and DDD of the spine - Continue home medication of Neurontin 600 mg every 6 hours History of DVT - On Xarelto at home. - Ddimer negative, V/Q without evidence of PE. Patient asymptomatic with no evidence of edema or pain on examination of legs. Low likelihood of DVT. Heparin discontinued. Patient resumed on home Xarelto dose. History of polycystic kidney disease - Improving BUN/creatinine. Will continue to monitor. - Continue Fuentes catheter for strict I&O's in this critically ill patient - Continue with gentle IV hydration Anemia - chronic - appears stable DVT/GI prophylaxis - SCDs/GERALDO hose - PPI Written by Olga Lidia Camacho PA-C acting as scribe for Dr. Kennedy on 09/11/16 at 11:30. All or portions of this note were transcribed by scribe Olga Lidia Camacho PA-C. I, Dr. Geoff Kennedy personally performed the history, physical exam, and medical decision making; and confirmed the accuracy of the information in the transcribed note. Authenticated by Dr. Geoff Kennedy on 09/11/16 at 14:12. Olga Lidia Camacho Sep 11, 2016 11:32 Geoff Kennedy MD Sep 11, 2016 14:13
[2016-09-11] MEDS ORDERED: PANTOPRAZOLE SOD 40 MG DELAYED RELEASE TAB PO ONE (14:00)
--- NOTE | 2016-09-11 14:33 | EKG ---
Date Performed: 09/10/2016 Time Performed: 09:37:40 PTAGE: 76 years EKG: Sinus rhythm with PAC(s). Left axis deviation RBBB with left anterior fascicular block Low QRS voltages in precor dial leads Abnormal ECG Compared to prior tracing no significant change PREVIOUS TRACING : 09/09/2016 16.01 DOCTOR: Boris Urias Interpretating Date/Time 09/11/2016 14:32:50
[2016-09-11] MEDS: MIRTAZAPINE 15 MG TAB PO SCH (21:10)
[2016-09-11] MEDS: LEVOFLOXACIN 750 MG PREMIX INJ 150 ML IV SCH (22:49)
[2016-09-12] VITALS (9 sets, daily range): BP systolic 138–156; BP diastolic 78–92; PULSE 65–79; RESP 16–20; TEMP 97.8–98.3; O2SAT 90–95
[2016-09-12] MEDS: RESP: ALBUTEROL 2.5 MG/IPRATROPIUM 0.5 MG NEB (PRN) NEB (02:31)
[2016-09-12] MEDS: methylPREDNISolone SOD SUCC 40 MG/1 ML VIAL IV SCH ×3 (04:11→23:07)
[2016-09-12 06:13] LABS: POTASSIUM 4.3 MEQ/L (3.5-5.1)
[2016-09-12] MEDS: oxyCODONE/ACETAMINOPHEN 10 MG/325 MG TAB PO PRN ×3 (06:41→19:48)
[2016-09-12] MEDS: RESP: ALBUTEROL 2.5 MG/IPRATROPIUM 0.5 MG NEB (SCH) NEB ×4 (07:39→19:35)
[2016-09-12] MEDS: SODIUM CHLORIDE 0.9% FLUSH 10 ML FLUSH IV FLUSH SCH ×2 (09:00→21:00)
[2016-09-12] MEDS: LISINOPRIL 20 MG TAB PO SCH (09:37)
[2016-09-12] MEDS: RIVAROXABAN 20 MG TAB PO SCH (09:38)
[2016-09-12] MEDS: GABAPENTIN 300 MG CAP PO SCH (09:38)
--- NOTE | 2016-09-12 12:14 | HHI.PR ---
Subjective Remarks Problem patient with COPD exacerbation and UTI. Patient states she does not feel well today. She is unable to sleep. She is having issues with urinary incontinence. She denies any chest pain. Objective Vitals Vital Signs Date Time Temp Pulse Resp B/P Pulse Ox O2 Delivery O2 Flow Rate FiO2 09/12/16 08:00 75 09/12/16 08:00 98.3 70 16 151/92 92 09/12/16 07:42 90 Nasal Cannula 4.00 09/12/16 04:00 97.8 69 20 156/88 94 09/12/16 00:00 98.2 68 20 141/78 95 09/11/16 20:00 98.5 67 20 120/69 95 09/11/16 20:00 69 09/11/16 19:30 90 Nasal Cannula 4.00 09/11/16 18:22 98.3 78 16 140/76 93 09/11/16 15:18 91 Nasal Cannula 4.00 09/11/16 14:49 97.8 73 16 140/81 88 I/O 09/11/16 09/11/16 09/11/16 09/12/16 09/12/16 09/12/16 07:00 15:00 23:00 07:00 15:00 23:00 Intake Total 1135 ml 2194 ml 60 ml Output Total 650 ml Balance 485 ml 2194 ml 60 ml Intake Oral 60 ml 1360 ml 60 ml IV Total 1075 ml 834 ml Output Urine Total 650 ml # Voids 5 2 # Bowel Movements 0 2 0 Result Diagram: 09/11/16 0450 09/12/16 0517 Objective Remarks GENERAL: This is a well-nourished, well-developed patient, in no apparent distress. A&Ox3. Daughters are at the bedside. SKIN: No rashes, ecchymoses or lesions. Warm and dry. HEAD: Atraumatic. Normocephalic. EYES: EOMI. CARDIOVASCULAR: Regular rate and rhythm with no murmur, rub or gallop. RESPIRATORY: Diminished breath sounds but improved. Scattered rhonchi. GASTROINTESTINAL: Abdomen soft, non-tender, nondistended. No hepato-splenomegaly , or palpable masses. No guarding. MUSCULOSKELETAL: Extremities without clubbing, cyanosis, or edema. No joint tenderness, effusion, or edema noted. No calf tenderness. NEUROLOGICAL: Awake, alert, oriented. Moves all extremities. No focal neurological deficit. Speech appears normal. Medications and IVs Current Medications Medications (Trade) Dose Ordered Sig/Lili Route Start Time Stop Time Status Last Admin (NS Flush) 2 ml UNSCH PRN IV FLUSH 09/09/16 19:30 (NS Flush) 2 ml BID IV FLUSH 09/09/16 21:00 09/12/16 09:00 (Tylenol) 650 mg Q4H PRN PO 09/09/16 19:30 (Zofran Inj) 4 mg Q6H PRN IVP 09/09/16 19:30 (Narcan Inj) 0.4 mg UNSCH PRN IV 09/09/16 19:30 (Neurontin) 600 mg DAILY PO 09/10/16 09:00 09/12/16 09:38 (Remeron) 15 mg HS PO 09/09/16 21:00 09/11/16 21:10 (Percocet 10-325 Mg) 1 tab Q6H PRN PO 09/09/16 19:30 09/12/16 13:15 (Norvasc) 10 mg DAILY PO 09/10/16 09:00 09/12/16 09:38 (Prinivil) 20 mg DAILY PO 09/10/16 09:00 09/12/16 09:37 (Catapres) 0.1 mg Q6H PRN PO 09/10/16 09:00 09/11/16 05:01 Methylprednisolone Sodium Succinate 40 mg 40 mg Q8H IV 09/10/16 12:00 09/12/16 13:16 (Levaquin 750 Mg Premix Inj) 150 ml @ 100 mls/hr Q48H IV 09/11/16 23:00 09/11/16 22:49 (Xarelto) 20 mg DAILY PO 09/12/16 09:00 09/12/16 09:38 Date of Insertion: Sep 10, 2016 Date of Removal: Sep 11, 2016 A/P Assessment and Plan 76-year-old female with a past medical history is significant for oxygen dependent COPD, hypertension, hypothyroidism, history of prior respiratory failure with intubation, pneumonia 1 year ago, polycystic kidney disease and CHF who presents to [facility] ED with complaints of uncontrollable shaking , slurred speech, weakness and shortness of breath. Acute on chronic hypoxic hypercapnic respiratory failure in a patient with oxygen-dependent COPD and history of pneumonia 1 year ago - Patient reports she is feeling worse today. She remains afebrile. Vital signs are stable. - VQ scan negative for PE. - Continue with supplemental oxygen. Patient O2 sats at 94% on 4 L. - Chest x-ray personally interpreted showing patchy infiltrates in the right and left lung base. Repeat chest x-ray was obtained today and also personally interpreted showing no changes with from previous examination. - Consult Dr. Cummings who is known to the patient - Will need to address home oxygen status prior to discharge AECOPD with left shift - Continue Levaquin - DuoNeb scheduled - Supplemental oxygen - Continue home bronchodilator therapy - On IV steroids, begin taper Positive blood cultures - Patient with gram-positive cocci in one aerobic and one anaerobic blood culture as well as staph epidermidis. Possible contamination. Follow-up on I& S. - Patient improving clinically while currently on Levaquin. Afebrile and normal white count. Chest pain - No complaints of chest pain since admission - 12-lead EKG obtained reveals no ischemic changes, personally interpreted - Cardiac enzymes negative 3 - Discontinue telemetry Hypernatremia - Resolved Hyperkalemia - Resolved BILL - Resolved UTI - Urine culture positive for Escherichia coli - Continue on IV Levaquin - D/C Fuentes Urinary incontinence - Possibly related to UTI. On IV abx as stated above. - also may be related to deconditioning/weakness/loss of mobility. Continue with PT. - will continue to monitor AMS - Resolved, patient's mentation back to baseline. - Patient with complaints of hallucinations, informed by nursing staff, now resolved. Suspected due to infection and hypoxia. - CT that shows no evidence of significant hemorrhage or mass effect. - Carotid ultrasound shows no evidence of stenosis. - EEG shows mild encephalopathy, no active seizure activity. HTN and History of CHF, grade 1 diastolic dysfunction - Last echocardiogram in the system 08/2014 shows an EF of 55-60%, no regional wall motion abnormalities - Continue to monitor for evidence of fluid overload - BNP slightly elevated at 284 History of chronic pain syndrome secondary to fibromyalgia, arthritis and DDD of the spine - Continue home medication of Neurontin 600 mg every 6 hours History of DVT - On Xarelto at home. - Ddimer negative, V/Q without evidence of PE. Patient asymptomatic with no evidence of edema or pain on examination of legs. Low likelihood of DVT. Heparin discontinued. Patient resumed on home Xarelto dose. History of polycystic kidney disease - Improving BUN/creatinine. Will continue to monitor. - Continue Fuentes catheter for strict I&O's in this critically ill patient - Continue with gentle IV hydration Anemia - chronic - appears stable DVT/GI prophylaxis - SCDs/GERALDO hose - PPI Written by Olga Lidia Camacho PA-C acting as scribe for Dr. eKnnedy on 09/12/16 at 10:40. All or portions of this note were transcribed by scribe Olga Lidia Camacho. I, Dr. Geoff Kennedy personally performed the history, physical exam, and medical decision making; and confirmed the accuracy of the information in the transcribed note. Authenticated by Dr. Geoff Kennedy on 09/12/16 at 19:09. Olga Lidia Camacho Sep 12, 2016 12:14 Geoff Kennedy MD Sep 12, 2016 19:09
[2016-09-12] MEDS ORDERED: PANTOPRAZOLE SOD 40 MG DELAYED RELEASE TAB PO SCH (18:30)
--- NOTE | 2016-09-12 20:26 | MB ---
cc: WAYNE OJNES DATE OF CONSULTATION 09/12/16 REASON FOR CONSULTATION Shortness of breath and COPD. HISTORY OF PRESENT ILLNESS Ms. Diaz is a pleasant 76-year-old white female who is known to me from the office. She has a longstanding history of COPD. She is oxygen dependent. She also has history of DVT. She is on Xarelto. She came to the hospital with complaint of shivering and chills. She was also having hallucinations, did not have any fever, no nausea or vomiting. The patient was evaluated in the emergency room. She was admitted in the hospital. She had a workup done. Her urine culture is positive for E-coli and blood culture shows staph epi. Sensitivities and final identification is pending. Now she does not have any more chills. Laboratory evaluation reveals WBC count 7.5, hemoglobin 11.6, hematocrit 35.1, MCV 93, platelet count 200. Her sodium 144, potassium 4.3, chloride 109, CO2 28, BUN 22, creatinine 0.93. Blood gas on 6 liters nasal cannula - pH 7.3 pCO2 53, pO2 50, bicarb 31. Now she is weaned down to three liters nasal cannula. PAST MEDICAL HISTORY 1. History of COPD. She is oxygen dependent. 2. Deep venous thrombosis 3. Hypertension, 4. Congestive heart failure. 5. History of polycystic kidney disease, 6. Fibromyalgia, 7. History of chronic pain MEDICATIONS Currently taking 1. Xarelto 20 mg a day, 2. Levaquin 750 mg q. 48-hour 3. Solu-Medrol 40 mg q.8 h 4. Neurontin 600 mg a day 5. Amlodipine 10 mg a day. 6. Lisinopril 20 mg a day, 7. Catapres 0.1 mg p.r.n. ALLERGIES ZITHROMAX PENICILLIN SOCIAL HISTORY She has history of smoking in the past. No alcohol abuse. FAMILY HISTORY She lives with her son. REVIEW OF SYSTEMS Normally she is up, around and active. She uses oxygen all the time. No headache, dizziness. No bleeding from any site. PHYSICAL EXAMINATION GENERAL: Elderly female not in acute distress. VITAL SIGNS: Blood pressure 138/90, heart rate 60, respiration 18, temperature 98.1. HEENT: Pupils are equal and reactive to light. Oral mucosa and nasal mucosa normal. NECK: Supple. JVP is not raised. CHEST: She has faint rhonchi. CARDIOVASCULAR: S1, S2 normal. ABDOMEN: Benign. EXTREMITIES: No edema. IMPRESSION 1. COPD with mild exacerbation, is improving. 2. Urinary tract infection 3. Hypoxia. 4. Compensated respiratory acidosis. 5. Positive blood culture 6. History of deep venous thrombosis PLAN I discussed with the patient she is getting Levaquin. We will check the final culture and adjust her antibiotics. She is on Solu-Medrol which we will wean to p.o. medications. Supplement her oxygen. Continue with Xarelto 20 mg a day. Further treatment will depend on the course in the hospital. Thank you ____ for this consultation MD LEENA Uribe/ /4:27 PM /8:11 PM
[2016-09-12] MEDS: PANTOPRAZOLE SOD 40 MG DELAYED RELEASE TAB PO SCH (23:07)
[2016-09-12] MEDS: MIRTAZAPINE 15 MG TAB PO SCH (23:07)
[2016-09-13] VITALS (11 sets, daily range): BP systolic 121–164; BP diastolic 68–90; PULSE 56–76; RESP 16–22; TEMP 98.2–98.6; O2SAT 90–96
[2016-09-13] MEDS: oxyCODONE/ACETAMINOPHEN 10 MG/325 MG TAB PO PRN ×2 (04:30→18:46)
[2016-09-13] MEDS: RESP: ALBUTEROL 2.5 MG/IPRATROPIUM 0.5 MG NEB (SCH) NEB ×3 (07:43→15:04)
[2016-09-13] MEDS: LISINOPRIL 20 MG TAB PO SCH (09:18)
[2016-09-13] MEDS: methylPREDNISolone SOD SUCC 40 MG/1 ML VIAL IV SCH ×2 (09:19→22:04)
[2016-09-13] MEDS: PANTOPRAZOLE SOD 40 MG DELAYED RELEASE TAB PO SCH (09:19)
[2016-09-13] MEDS: RIVAROXABAN 20 MG TAB PO SCH (09:20)
[2016-09-13] MEDS: SODIUM CHLORIDE 0.9% FLUSH 10 ML FLUSH IV FLUSH SCH ×2 (09:21→21:00)
[2016-09-13] MEDS: GABAPENTIN 300 MG CAP PO SCH (09:27)
--- NOTE | 2016-09-13 14:08 | PD.CONS ---
History of Present Illness Service ID CONSULT DR BRO Consult Requested By Reason for Consult BACTEREMIA Primary Care Physician Fernanda Fox MD Diagnoses: (1) Tobacco abuse (2) Chronic obstructive pulmonary disease with acute exacerbation History of Present Illness 76 Y/O FEMALE ADM WITH CHILLS, LOW GRADE FEVER , AND SOB THURSDAY. SHE STATES SHE HAS COPD AND IS ALWAYS SOB HOWEVER HER GRANDDAUGHTER STATES SHE BEGAN TO SHAKE VIOLENTLY AND THUS SHE CALLED 911. TM 100.0 ON ADMISSION. SHE WAS FOUND TO HAVE UTI ECOLI AND NOW BC 3 OF 4 + STAPH EPI. SHE STATES SHE RECENTLY HAD A STEROID INJECTION INTO THE RIGHT KNEE FOR PAIN THE THURSDAY BEFORE ADM. IT IS VERY PAINFUL NOW HOWEVER SHE IS ABLE TO BEAR WEIGHT AND IT HAS NOT BEEN RED OR SWOLLEN. ID CONSULTED. (Dea Austin) Review of Systems Constitutional: COMPLAINS OF: Fever, Chills Respiratory: COMPLAINS OF: Shortness of breath, DENIES: Cough Cardiovascular: DENIES: Chest pain Gastrointestinal: DENIES: Abdominal pain, Constipation, Diarrhea Musculoskeletal: COMPLAINS OF: Joint pain, Muscle aches (Dea Austin) Past Family Social History Allergies: Coded Allergies: Azithromycin (Verified Allergy, Severe, STOMACH CRAMPS, 09/09/16) Penicillin (Verified Allergy, Severe, 09/09/16) Past Medical History Past Medical History Arthritis: Yes Anxiety: No Depression: No Cancer: Yes Cardiovascular Problems: Yes High Cholesterol: Yes Chemotherapy: No COPD: Yes Diabetes: No Diminished Hearing: Yes Deep Vein Thrombosis: Yes (x2 ) Fibromyalgia: Yes Gastrointestinal Disorders: No Genitourinary: Yes Hypertension: Yes Immune Disorder: No Implanted Vascular Access Dvce: No Musculoskeletal: Yes Neurologic: No Reproductive: No Respiratory: Yes (HOME O2/OXYGEN DEPENDENT) Radiation Therapy: Yes (FOR GOITER) Thyroid Disease: Yes Menopausal: Yes Tubal Ligation: Yes Past Surgical History Past Surgical History Ear Surgery: Yes (INPLANT RT/ CATARACT) Eye Surgery: Yes (CATARACT) Gynecologic Surgery: Yes (TUBAL LIGATION) Tonsillectomy: Yes Other Surgery: Yes Reported Medications Reported Meds & Active Scripts Active Reported Alendronate (Alendronate Sodium) 70 Mg Tab 70 Mg PO Q7D Mirtazapine 15 Mg Tab 15 Mg PO HS Xarelto (Rivaroxaban) 20 Mg Tab 20 Mg PO DAILY Amlodipine-Benazepril 10-20 Mg Cap 1 Cap PO DAILY Gabapentin 600 Mg Tab 600 Mg PO QID Oxycodone-Acetaminophen 10-325 mg Tab 1 Tab PO Q6H PRN Family History NONE CONTRIBUTORY Social History Social History Alcohol Use: No Tobacco Use: No (quit 2014 smoked 1 ppd cigs for 57 yrs) Substance Use: No ([place],Dea [employer]) Physical Exam Vital Signs Vital Signs Date Time Temp Pulse Resp B/P Pulse Ox O2 Delivery O2 Flow Rate FiO2 09/13/16 12:00 98.3 76 20 137/68 95 09/13/16 10:44 Automatic Cuff 09/13/16 08:00 98.4 69 18 153/87 95 09/13/16 07:45 95 Nasal Cannula 3.00 09/13/16 06:45 56 09/13/16 04:13 98.6 66 16 148/79 93 09/13/16 00:15 98.6 71 16 154/89 95 09/12/16 20:15 98.0 78 18 141/79 90 09/12/16 20:00 79 09/12/16 19:35 95 Nasal Cannula 4.00 09/12/16 16:00 98.1 65 18 138/90 94 09/12/16 14:15 20 Physical Exam GENERAL: This is a well-nourished, well-developed patient, in no apparent distress. SKIN: No rashes, ecchymoses or lesions. Cool and dry. HEAD: Atraumatic. Normocephalic. No temporal or scalp tenderness. EYES: Pupils equal round and reactive. Extraocular motions intact. No scleral icterus. No injection or drainage. ENT: Nose without bleeding, purulent drainage or septal hematoma. Throat without erythema, tonsillar hypertrophy or exudate. Uvula midline. Airway patent. NECK: Trachea midline. No JVD or lymphadenopathy. Supple, nontender, no meningeal signs. CARDIOVASCULAR: Regular rate and rhythm without murmurs, gallops, or rubs. RESPIRATORY: Clear to auscultation. Breath sounds equal bilaterally. No wheezes , rales, or rhonchi. Diminished GASTROINTESTINAL: Abdomen soft, non-tender, nondistended. No hepato-splenomegaly , or palpable masses. No guarding. MUSCULOSKELETAL: Extremities without clubbing, cyanosis, or edema. Right knee joint tenderness, no effusion, or edema noted. No calf tenderness. Negative Homans sign bilaterally. NEUROLOGICAL: Awake and alert. Cranial nerves II through XII intact. Motor and sensory grossly within normal limits. Five out of 5 muscle strength in all muscle groups. Normal speech. Laboratory Date/Time Procedure Status Source Growth 09/13/16 13:16 Aerobic Blood Culture Received Blood Peripheral Pending 09/13/16 13:16 Anaerobic Blood Culture Received Blood Peripheral Pending 09/09/16 21:17 Urine Culture - Final Complete Urine Catheterized Urine Escherichia Coli 09/09/16 16:10 Aerobic Blood Culture - Preliminary Resulted Blood Peripheral Staphylococcus Epidermidis 09/09/16 16:10 Anaerobic Blood Culture - Final Resulted Staph Sp Coagulase Negative (Dea Austin) Result Diagram: 09/11/16 0450 09/12/16 0517 Assessment and Plan Problem List: (1) Chronic obstructive pulmonary disease with acute exacerbation Status: Acute (2) Tobacco abuse Status: Acute (3) UTI (urinary tract infection) Status: Acute Plan: continue levaquin (4) Bacteremia due to coagulase-negative Staphylococcus Status: Acute Plan: continue levaquin for now repeat bc x 2 ? contaminant will fu (Dea Austin) Assessment and Plan Reviewed note and Plan. Reviewed cultures Recommend: Repeat Blood cultures Continue Levofloxacin (Carmen Bro MD) Problem Qualifiers (1) UTI (urinary tract infection): Qualified Code: T83.511A - Urinary tract infection associated with catheterization of urinary tract, unspecified indwelling urinary catheter type, initial encounter Dea Austin Sep 13, 2016 14:08 Carmen Bro MD Sep 13, 2016 15:40
--- NOTE | 2016-09-13 15:29 | HHI.PR ---
Subjective Remarks Follow up on patient with COPD exacerbation and UTI. Patient states she's feeling better today. She does report a 15 minute episode of 2/10 "knocking" midsternal chest pain sensation that lasted 15 minutes without any associated symptoms or radiation that has since resolved. She continues to have some cough with sputum production. Objective Vitals Vital Signs Date Time Temp Pulse Resp B/P Pulse Ox O2 Delivery O2 Flow Rate FiO2 09/13/16 12:00 98.3 76 20 137/68 95 09/13/16 10:44 Automatic Cuff 09/13/16 08:00 98.4 69 18 153/87 95 09/13/16 07:45 95 Nasal Cannula 3.00 09/13/16 06:45 56 09/13/16 04:13 98.6 66 16 148/79 93 09/13/16 00:15 98.6 71 16 154/89 95 09/12/16 20:15 98.0 78 18 141/79 90 09/12/16 20:00 79 09/12/16 19:35 95 Nasal Cannula 4.00 09/12/16 16:00 98.1 65 18 138/90 94 I/O 09/12/16 09/12/16 09/12/16 09/13/16 09/13/16 09/13/16 07:00 15:00 23:00 07:00 15:00 23:00 Intake Total 60 ml 240 ml Balance 60 ml 240 ml Intake Oral 60 ml 240 ml # Voids 2 5 0 2 # Bowel Movements 0 Result Diagram: 09/11/16 0450 09/12/16 0517 Objective Remarks GENERAL: This is a well-nourished, well-developed patient, in no apparent distress. Lying in hospital bed. A&Ox3. Family member is at the bedside. SKIN: No rashes, ecchymoses or lesions. Warm and dry. HEAD: Atraumatic. Normocephalic. EYES: EOMI. CARDIOVASCULAR: Regular rate and rhythm with no murmur, rub or gallop. RESPIRATORY: Diminished breath sounds but clear. GASTROINTESTINAL: Abdomen soft, non-tender, nondistended. No hepato-splenomegaly , or palpable masses. No guarding. MUSCULOSKELETAL: Extremities without clubbing, cyanosis, or edema. No joint tenderness, effusion, or edema noted. No calf tenderness. NEUROLOGICAL: Awake, alert, oriented. Moves all extremities. No focal neurological deficit. Speech appears normal. Medications and IVs Current Medications Medications (Trade) Dose Ordered Sig/Lili Route Start Time Stop Time Status Last Admin (NS Flush) 2 ml UNSCH PRN IV FLUSH 09/09/16 19:30 (NS Flush) 2 ml BID IV FLUSH 09/09/16 21:00 09/13/16 09:21 (Tylenol) 650 mg Q4H PRN PO 09/09/16 19:30 (Zofran Inj) 4 mg Q6H PRN IVP 09/09/16 19:30 (Narcan Inj) 0.4 mg UNSCH PRN IV 09/09/16 19:30 (Neurontin) 600 mg DAILY PO 09/10/16 09:00 09/13/16 09:27 (Remeron) 15 mg HS PO 09/09/16 21:00 09/12/16 23:07 (Percocet 10-325 Mg) 1 tab Q6H PRN PO 09/09/16 19:30 09/13/16 04:30 (Norvasc) 10 mg DAILY PO 09/10/16 09:00 09/13/16 09:18 (Prinivil) 20 mg DAILY PO 09/10/16 09:00 09/13/16 09:18 Clonidine 0.1 mg 0.1 mg Q6H PRN PO 09/10/16 09:00 09/11/16 05:01 (Levaquin 750 Mg Premix Inj) 150 ml @ 100 mls/hr Q48H IV 09/11/16 23:00 09/11/16 22:49 (Xarelto) 20 mg DAILY PO 09/12/16 09:00 09/13/16 09:20 (SoluMEDROL INJ) 40 mg Q12HR IV 09/12/16 21:00 09/13/16 09:19 (Protonix) 40 mg DAILY PO 09/12/16 20:00 09/13/16 09:19 Date of Insertion: Sep 10, 2016 Date of Removal: Sep 11, 2016 A/P Assessment and Plan 76-year-old female with a past medical history is significant for oxygen dependent COPD, hypertension, hypothyroidism, history of prior respiratory failure with intubation, pneumonia 1 year ago, polycystic kidney disease and CHF who presents to [facility] ED with complaints of uncontrollable shaking , slurred speech, weakness and shortness of breath. Acute on chronic hypoxic hypercapnic respiratory failure in a patient with oxygen-dependent COPD and history of pneumonia 1 year ago - improving - VQ scan negative for PE. - Continue with supplemental oxygen. Patient O2 sats at 95% on 3LNC. - Chest x-ray personally interpreted showing patchy infiltrates in the right and left lung base. - Dr. Cummings following, very much appreciate his assistance. Agrees with Levaquin for now pending final culture and will adjust antibiotics appropriately - Will need to address home oxygen status prior to discharge AECOPD with left shift - Continue Levaquin - DuoNeb scheduled - Supplemental oxygen - Continue home bronchodilator therapy - On IV steroids, started on taper to po medications Bacteremia - Patient with positive blood culture 3 out of 4 - coagulase negative staph. Possible contamination. - repeat blood cultures ordered - ID consult requested and patient evaluated by RAINA Sánchez, very much appreciate her assistance. Per her note, patient received cortisone injection on prior to her admission which was not divulged previously in her history. Possible contaminant. F/U on repeat BC. Agrees with continuation of Levaquin. Chest pain - 15 minute episode of chest pain earlier, now resolved - resume telemetry Hypernatremia - Resolved Hyperkalemia - Resolved BILL - Resolved UTI - Urine culture positive for Escherichia coli - Continue on IV Levaquin Urinary incontinence - Possibly related to UTI. On IV abx as stated above. - also may be related to deconditioning/weakness/loss of mobility. Continue with PT. - will continue to monitor AMS - Resolved, patient's mentation back to baseline. - Patient with complaints of hallucinations, informed by nursing staff, now resolved. Suspected due to infection and hypoxia. - CT that shows no evidence of significant hemorrhage or mass effect. - Carotid ultrasound shows no evidence of stenosis. - EEG shows mild encephalopathy, no active seizure activity. HTN and History of CHF, grade 1 diastolic dysfunction - BP 137/68 - continue with home meds - Last echocardiogram in the system 08/2014 shows an EF of 55-60%, no regional wall motion abnormalities - Continue to monitor for evidence of fluid overload - BNP slightly elevated at 284 History of chronic pain syndrome secondary to fibromyalgia, arthritis and DDD of the spine - Continue home medication of Neurontin 600 mg every 6 hours History of DVT - On Xarelto at home. - Ddimer negative, V/Q without evidence of PE. Patient asymptomatic with no evidence of edema or pain on examination of legs. Low likelihood of DVT. Heparin discontinued. Patient resumed on home Xarelto dose. History of polycystic kidney disease - BUN/creatine improved Anemia - chronic - appears stable DVT/GI prophylaxis - SCDs/GERALDO hose - PPI Written by Olga Lidia Camacho PA-C acting as scribe for Dr. Kennedy on 09/13/16 at 9:40. All or portions of this note were transcribed by scribe Olga Lidia Camacho PA-C. I, Dr. Geoff Kennedy personally performed the history, physical exam, and medical decision making; and confirmed the accuracy of the information in the transcribed note. Authenticated by Dr. Geoff Kennedy on 09/13/16 at 15:58. Olga Lidia Camacho Sep 13, 2016 15:29 Geoff Kennedy MD Sep 13, 2016 15:58
[2016-09-13] MEDS: RESP: ALBUTEROL 2.5 MG/IPRATROPIUM 0.5 MG NEB (PRN) NEB (20:16)
[2016-09-13] MEDS: MIRTAZAPINE 15 MG TAB PO SCH (22:03)
[2016-09-13] MEDS: LEVOFLOXACIN 750 MG PREMIX INJ 150 ML IV SCH (22:06)
[2016-09-14] VITALS (10 sets, daily range): BP systolic 118–188; BP diastolic 65–85; PULSE 56–80; RESP 18–24; TEMP 97.6–98.6; O2SAT 93–97
[2016-09-14] MEDS: cloNIDine HCL 0.1 MG TAB PO PRN (06:26)
[2016-09-14] MEDS: oxyCODONE/ACETAMINOPHEN 10 MG/325 MG TAB PO PRN ×3 (06:27→20:45)
[2016-09-14] MEDS: RESP: ALBUTEROL 2.5 MG/IPRATROPIUM 0.5 MG NEB (PRN) NEB ×4 (06:36→19:37)
[2016-09-14] MEDS: RIVAROXABAN 20 MG TAB PO SCH (08:45)
[2016-09-14] MEDS: GABAPENTIN 300 MG CAP PO SCH (08:45)
[2016-09-14] MEDS: LISINOPRIL 20 MG TAB PO SCH (08:45)
[2016-09-14] MEDS: methylPREDNISolone SOD SUCC 40 MG/1 ML VIAL IV SCH ×2 (08:45→20:40)
[2016-09-14] MEDS: PANTOPRAZOLE SOD 40 MG DELAYED RELEASE TAB PO SCH (08:45)
[2016-09-14] MEDS: SODIUM CHLORIDE 0.9% FLUSH 10 ML FLUSH IV FLUSH SCH ×2 (08:46→20:41)
--- NOTE | 2016-09-14 10:43 | HHI.IDPN ---
Subjective Subjective Remarks Feels better No fever Antibiotics Levofloxacin Lines Peripheral IV line Past Medical History COPD - O2 dependent Prior respiratory failure with intubation Pneumonia CHF (grade I diastolic dysfunction) HTN Polycystic kidney disease DVT (diagnosed March 23) anemia dyslipidemia tobacco use fibromyalgia / arthritis Hx of Goiter s/p radiation therapy with subsequent hypothyroidism DJD spine Fatty liver with cholelithiasis Diverticulosis Past Surgical History Tonsillectomy Cataract surgery Tubal ligation Allergies: Coded Allergies: Azithromycin (Verified Allergy, Severe, STOMACH CRAMPS, 09/09/16) Penicillin (Verified Allergy, Severe, 09/09/16) Review of Systems Constitutional Constitutional Remarks No fever, chills Objective . Vital Signs Date Time Temp Pulse Resp B/P Pulse Ox O2 Delivery O2 Flow Rate FiO2 09/14/16 08:00 97.7 63 18 131/82 97 09/14/16 07:27 18 09/14/16 04:15 98.6 66 24 188/85 96 09/14/16 00:55 98.0 80 18 130/85 97 09/13/16 20:43 98.2 72 22 133/79 96 09/13/16 20:30 71 09/13/16 20:16 90 Nasal Cannula 3.00 09/13/16 16:00 98.4 74 18 121/69 95 09/13/16 12:00 98.3 76 20 137/68 95 09/13/16 10:44 Automatic Cuff 09/13/16 09/13/16 09/14/16 15:00 23:00 07:00 Intake Total 240 ml 720 ml 190 ml Balance 240 ml 720 ml 190 ml Intake Oral 240 ml 720 ml IV Total 0 ml 190 ml # Voids 4 . Microbiology Date/Time Procedure Status Source Growth 09/13/16 13:09 Aerobic Blood Culture Received Blood Peripheral Pending 09/13/16 13:09 Anaerobic Blood Culture Received Blood Peripheral Pending 09/13/16 13:16 Aerobic Blood Culture Received Blood Peripheral Pending 09/13/16 13:16 Anaerobic Blood Culture Received Blood Peripheral Pending Physical Exam GENERAL: This is a chronically ill patient with some shortness of breath SKIN: No rashes, ecchymoses or lesions. Cool and dry. Rt knee - no erythema or swelling HEAD: Atraumatic. Normocephalic. No temporal or scalp tenderness. EYES: Pupils equal round and reactive. Extraocular motions intact. No scleral icterus. No injection or drainage. ENT: Nose without bleeding, purulent drainage or septal hematoma. Throat without erythema, tonsillar hypertrophy or exudate. Uvula midline. Airway patent. NECK: Trachea midline. No JVD or lymphadenopathy. Supple, nontender, no meningeal signs. CARDIOVASCULAR: Regular rate and rhythm without murmurs, gallops, or rubs. RESPIRATORY: Clear to auscultation. Breath sounds equal bilaterally but dimininished. No wheezes, rales, or rhonchi. Diminished GASTROINTESTINAL: Abdomen soft, non-tender, nondistended. No hepato-splenomegaly , or palpable masses. No guarding. MUSCULOSKELETAL: Extremities without clubbing, cyanosis, or edema. Right knee joint tenderness, no effusion, or edema noted. No calf tenderness. Negative Homans sign bilaterally. NEUROLOGICAL: Awake and alert. Cranial nerves II through XII intact. Motor and sensory grossly within normal limits. Five out of 5 muscle strength in all muscle groups. Normal speech. Assessment & Plan Diagnosis: (1) UTI (urinary tract infection) Plan: Re check UAC Continue Levofloxacin (2) Chronic obstructive pulmonary disease with acute exacerbation (3) Bacteremia due to coagulase-negative Staphylococcus Plan: Likely contaminants' Follow repeat blood culture Problem Qualifiers (1) UTI (urinary tract infection): Carmen Bro MD Sep 14, 2016 10:43
--- NOTE | 2016-09-14 10:45 | HHI.PR ---
Subjective Remarks Follow-up the patient was COPD exacerbation and UTI. She admits to slight improvement today. Reports that her knee was hurting currently her but has resolved. She denies any complaints of chest pain or abdominal pain. Still with persistent cough with thick sputum that she has difficulty coughing up. Patient on supplemental oxygen 3LNC. No fever. Objective Vitals Vital Signs Date Time Temp Pulse Resp B/P Pulse Ox O2 Delivery O2 Flow Rate FiO2 09/14/16 08:00 97.7 63 18 131/82 97 09/14/16 07:27 18 09/14/16 04:15 98.6 66 24 188/85 96 09/14/16 00:55 98.0 80 18 130/85 97 09/13/16 20:43 98.2 72 22 133/79 96 09/13/16 20:30 71 09/13/16 20:16 90 Nasal Cannula 3.00 09/13/16 16:00 98.4 74 18 121/69 95 09/13/16 12:00 98.3 76 20 137/68 95 I/O 09/13/16 09/13/16 09/13/16 09/14/16 09/14/16 09/14/16 07:00 15:00 23:00 07:00 15:00 23:00 Intake Total 240 ml 720 ml 190 ml Balance 240 ml 720 ml 190 ml Intake Oral 240 ml 720 ml IV Total 0 ml 190 ml # Voids 2 4 Result Diagram: 09/11/16 0450 09/12/16 0517 Objective Remarks GENERAL: This is a well-nourished, well-developed patient, in no apparent distress. Lying in hospital bed. A&Ox3. Family member in bedside chair. SKIN: No rashes, ecchymoses or lesions. Warm and dry. HEAD: Atraumatic. Normocephalic. EYES: EOMI. CARDIOVASCULAR: Regular rate and rhythm with no murmur, rub or gallop. RESPIRATORY: Scattered wheezing. Diminished breath sounds but clear. GASTROINTESTINAL: Abdomen soft, non-tender, nondistended. No hepato-splenomegaly , or palpable masses. No guarding. MUSCULOSKELETAL: Extremities without clubbing, cyanosis, or edema. No joint tenderness, effusion, or edema noted. No calf tenderness. NEUROLOGICAL: Awake, alert, oriented. Moves all extremities. No focal neurological deficit. Speech appears normal. Medications and IVs Current Medications Medications (Trade) Dose Ordered Sig/Lili Route Start Time Stop Time Status Last Admin (NS Flush) 2 ml UNSCH PRN IV FLUSH 09/09/16 19:30 (NS Flush) 2 ml BID IV FLUSH 09/09/16 21:00 09/14/16 08:46 (Tylenol) 650 mg Q4H PRN PO 09/09/16 19:30 (Zofran Inj) 4 mg Q6H PRN IVP 09/09/16 19:30 (Narcan Inj) 0.4 mg UNSCH PRN IV 09/09/16 19:30 (Neurontin) 600 mg DAILY PO 09/10/16 09:00 09/14/16 08:45 (Remeron) 15 mg HS PO 09/09/16 21:00 09/13/16 22:03 (Percocet 10-325 Mg) 1 tab Q6H PRN PO 09/09/16 19:30 09/14/16 14:18 (Norvasc) 10 mg DAILY PO 09/10/16 09:00 09/14/16 08:45 (Prinivil) 20 mg DAILY PO 09/10/16 09:00 09/14/16 08:45 Clonidine 0.1 mg 0.1 mg Q6H PRN PO 09/10/16 09:00 09/14/16 06:26 (Levaquin 750 Mg Premix Inj) 150 ml @ 100 mls/hr Q48H IV 09/11/16 23:00 09/13/16 22:06 (Xarelto) 20 mg DAILY PO 09/12/16 09:00 09/14/16 08:45 (SoluMEDROL INJ) 40 mg Q12HR IV 09/12/16 21:00 09/14/16 08:45 (Protonix) 40 mg DAILY PO 09/12/16 20:00 09/14/16 08:45 Date of Insertion: Sep 10, 2016 Date of Removal: Sep 11, 2016 A/P Assessment and Plan 76-year-old female with a past medical history is significant for oxygen dependent COPD, hypertension, hypothyroidism, history of prior respiratory failure with intubation, pneumonia 1 year ago, polycystic kidney disease and CHF who presents to [facility] ED with complaints of uncontrollable shaking , slurred speech, weakness and shortness of breath. Acute on chronic hypoxic hypercapnic respiratory failure in a patient with oxygen-dependent COPD and history of pneumonia 1 year ago - Continues to improve. - VQ scan negative for PE. - Continue with supplemental oxygen. Patient O2 sats at 95% on 3LNC. - Chest x-ray personally interpreted showing patchy infiltrates in the right and left lung base. - Dr. Cummings following, very much appreciate his assistance. Agrees with Levaquin for now pending final culture and will adjust antibiotics appropriately - Will need to address home oxygen status prior to discharge AECOPD with left shift - Continue Levaquin - DuoNeb scheduled - Supplemental oxygen - Continue home bronchodilator therapy - On IV steroids, continue on taper to po medications Bacteremia - Patient with positive blood culture 3 out of 4 - coagulase negative staph. Possible contamination. - repeat blood cultures show no growth on day 1 - ID consult requested and patient evaluated by RAINA Sánchez, very much appreciate her assistance. Per her note, patient received cortisone injection on prior to her admission which was not divulged previously in her history. Possible contaminant. F/U on repeat BC. Agrees with continuation of Levaquin. Chest pain - 15 minute episode of chest pain yesterday, now resolved - continue on telemetry Hypernatremia - Resolved Hyperkalemia - Resolved BILL - Resolved UTI - Urine culture positive for Escherichia coli - Continue on IV Levaquin Urinary incontinence - Possibly related to UTI. On IV abx as stated above. - also may be related to deconditioning/weakness/loss of mobility. Continue with PT. - will continue to monitor AMS - Resolved, patient's mentation back to baseline. - Patient with complaints of hallucinations, informed by nursing staff, now resolved. Suspected due to infection and hypoxia. - CT that shows no evidence of significant hemorrhage or mass effect. - Carotid ultrasound shows no evidence of stenosis. - EEG shows mild encephalopathy, no active seizure activity. HTN and History of CHF, grade 1 diastolic dysfunction - BP 131/82 - continue with home meds - Last echocardiogram in the system 08/2014 shows an EF of 55-60%, no regional wall motion abnormalities - Continue to monitor for evidence of fluid overload - BNP slightly elevated at 284 History of chronic pain syndrome secondary to fibromyalgia, arthritis and DDD of the spine - Continue home medication of Neurontin 600 mg every 6 hours History of DVT - On Xarelto at home. - Ddimer negative, V/Q without evidence of PE. Patient asymptomatic with no evidence of edema or pain on examination of legs. Low likelihood of DVT. Heparin discontinued. Patient resumed on home Xarelto dose. History of polycystic kidney disease - BUN/creatinine improved Anemia - chronic - appears stable DVT/GI prophylaxis - SCDs/GERALDO hose - PPI Written by Olga Lidia Camacho PA-C acting as scribe for Dr. Kennedy on 09/14/16 at 10:44. All or portions of this note were transcribed by scribe Olga Lidia Camacho PA-C. I, Dr. Geoff Kennedy personally performed the history, physical exam, and medical decision making; and confirmed the accuracy of the information in the transcribed note. Authenticated by Dr. Geoff Kennedy on 09/15/16 at 07:21. Olga Lidia Camacho Sep 14, 2016 10:45 Geoff Kennedy MD Sep 15, 2016 07:22
[2016-09-14] MEDS: MIRTAZAPINE 15 MG TAB PO SCH (20:41)
[2016-09-15] VITALS (9 sets, daily range): BP systolic 115–140; BP diastolic 65–85; PULSE 59–82; RESP 18–20; TEMP 96.6–98; O2SAT 93–96
[2016-09-15] MEDS: oxyCODONE/ACETAMINOPHEN 10 MG/325 MG TAB PO PRN ×3 (03:18→17:59)
[2016-09-15] MEDS: methylPREDNISolone SOD SUCC 40 MG/1 ML VIAL IV SCH (08:53)
[2016-09-15] MEDS: LISINOPRIL 20 MG TAB PO SCH (08:53)
[2016-09-15] MEDS: GABAPENTIN 300 MG CAP PO SCH (08:54)
[2016-09-15] MEDS: SODIUM CHLORIDE 0.9% FLUSH 10 ML FLUSH IV FLUSH SCH ×2 (08:54→20:51)
[2016-09-15] MEDS: PANTOPRAZOLE SOD 40 MG DELAYED RELEASE TAB PO SCH (08:54)
[2016-09-15] MEDS: RIVAROXABAN 20 MG TAB PO SCH (08:54)
--- NOTE | 2016-09-15 09:43 | HHI.IDPN ---
Subjective Subjective Remarks Feels better. Breathing better. Some cough though better Feels weak No urinary symptoms No fever Antibiotics Levofloxacin Lines Peripheral IV line Past Medical History COPD - O2 dependent Prior respiratory failure with intubation Pneumonia CHF (grade I diastolic dysfunction) HTN Polycystic kidney disease DVT (diagnosed March 23) anemia dyslipidemia tobacco use fibromyalgia / arthritis Hx of Goiter s/p radiation therapy with subsequent hypothyroidism DJD spine Fatty liver with cholelithiasis Diverticulosis Past Surgical History Tonsillectomy Cataract surgery Tubal ligation Allergies: Coded Allergies: Azithromycin (Verified Allergy, Severe, STOMACH CRAMPS, 09/09/16) Penicillin (Verified Allergy, Severe, 09/09/16) Review of Systems Constitutional Constitutional Remarks No fever, chills Objective . Vital Signs Date Time Temp Pulse Resp B/P Pulse Ox O2 Delivery O2 Flow Rate FiO2 09/15/16 08:21 94 Nasal Cannula 3.00 09/15/16 08:00 97.4 62 20 140/85 95 09/15/16 04:00 96.6 68 18 115/65 96 09/15/16 00:00 97.4 64 18 120/65 96 09/14/16 20:00 97.8 70 18 120/65 96 09/14/16 19:45 56 09/14/16 19:39 93 Nasal Cannula 3.00 09/14/16 16:00 97.6 68 18 118/68 95 09/14/16 15:18 18 09/14/16 12:00 97.7 66 18 124/70 95 09/14/16 11:28 95 Nasal Cannula 3.00 09/14/16 09/14/16 09/15/16 15:00 23:00 07:00 Intake Total 200 ml 1050 ml 0 ml Balance 200 ml 1050 ml 0 ml Intake Oral 200 ml 1050 ml IV Total 0 ml 0 ml # Voids 5 # Bowel Movements 1 . Microbiology Date/Time Procedure Status Source Growth 09/13/16 13:09 Aerobic Blood Culture - Preliminary Resulted Blood Peripheral NO GROWTH IN 1 DAY 09/13/16 13:09 Anaerobic Blood Culture - Preliminary Resulted Blood Peripheral NO GROWTH IN 1 DAY 09/13/16 13:16 Aerobic Blood Culture - Preliminary Resulted Blood Peripheral NO GROWTH IN 1 DAY 09/13/16 13:16 Anaerobic Blood Culture - Preliminary Resulted Blood Peripheral NO GROWTH IN 1 DAY Physical Exam GENERAL: This is a chronically ill patient with some shortness of breath SKIN: No rashes, ecchymoses or lesions. Cool and dry. Rt knee - no erythema or swelling HEAD: Atraumatic. Normocephalic. No temporal or scalp tenderness. EYES: Pupils equal round and reactive. Extraocular motions intact. No scleral icterus. No injection or drainage. ENT: Nose without bleeding, purulent drainage or septal hematoma. Throat without erythema, tonsillar hypertrophy or exudate. Uvula midline. Airway patent. NECK: Trachea midline. No JVD or lymphadenopathy. Supple, nontender, no meningeal signs. CARDIOVASCULAR: Regular rate and rhythm without murmurs, gallops, or rubs. RESPIRATORY: Clear to auscultation. Breath sounds equal bilaterally but diminished. No wheezes, rales, or rhonchi. Diminished GASTROINTESTINAL: Abdomen soft, non-tender, nondistended. No hepato-splenomegaly , or palpable masses. No guarding. MUSCULOSKELETAL: Extremities without clubbing, cyanosis, or edema. Right knee joint tenderness, no effusion, or edema noted. No calf tenderness. Negative Homans sign bilaterally. NEUROLOGICAL: Awake and alert. Cranial nerves II through XII intact. Motor and sensory grossly within normal limits. Five out of 5 muscle strength in all muscle groups. Normal speech. Assessment & Plan Diagnosis: (1) UTI (urinary tract infection) Plan: Re check UAC Continue Levofloxacin- change to PO. (2) Chronic obstructive pulmonary disease with acute exacerbation (3) Bacteremia due to coagulase-negative Staphylococcus Plan: Likely contaminants Repeat blood culture is negative at 24 hrs Problem Qualifiers (1) UTI (urinary tract infection): Carmen Bro MD Sep 15, 2016 09:43
[2016-09-15 11:11] LABS: BLOOD, URINE NEG (NEG); GLUCOSE,URINE NEG (NEG); KETONE, URINE NEG (NEG); NITRITE,URINE NEG (NEG); PH, URINE 5.5 (5.0-8.5)
--- NOTE | 2016-09-15 11:17 | HHI.PR ---
Subjective Remarks Follow-up on patient with COPD exacerbation and UTI. Continues to notice improvement every day. States she is breathing well but still at 3 L by nasal cannula. She has been up several times with PT. Is complaining of of burning itchy rash underneath both breasts. Objective Vitals Vital Signs Date Time Temp Pulse Resp B/P Pulse Ox O2 Delivery O2 Flow Rate FiO2 09/15/16 08:21 94 Nasal Cannula 3.00 09/15/16 08:00 62 09/15/16 08:00 97.4 62 20 140/85 95 09/15/16 04:00 96.6 68 18 115/65 96 09/15/16 00:00 97.4 64 18 120/65 96 09/14/16 20:00 97.8 70 18 120/65 96 09/14/16 19:45 56 09/14/16 19:39 93 Nasal Cannula 3.00 09/14/16 16:00 97.6 68 18 118/68 95 09/14/16 15:18 18 09/14/16 12:00 97.7 66 18 124/70 95 09/14/16 11:28 95 Nasal Cannula 3.00 I/O 09/14/16 09/14/16 09/14/16 09/15/16 09/15/16 09/15/16 07:00 15:00 23:00 07:00 15:00 23:00 Intake Total 190 ml 200 ml 1050 ml 0 ml Balance 190 ml 200 ml 1050 ml 0 ml Intake Oral 200 ml 1050 ml IV Total 190 ml 0 ml 0 ml # Voids 5 # Bowel Movements 1 Result Diagram: 09/11/16 0450 09/12/16 0517 Objective Remarks GENERAL: This is a well-nourished, well-developed patient, in no apparent distress. Lying in hospital bed. A&Ox3. SKIN: Candidal rash underneath both breasts Warm and dry. HEAD: Atraumatic. Normocephalic. EYES: EOMI. CARDIOVASCULAR: Regular rate and rhythm with no murmur, rub or gallop. RESPIRATORY: Scattered wheezing. Diminished breath sounds but clear. GASTROINTESTINAL: Abdomen soft, non-tender, nondistended. No hepato-splenomegaly , or palpable masses. No guarding. MUSCULOSKELETAL: Extremities without clubbing, cyanosis, or edema. No joint tenderness, effusion, or edema noted. No calf tenderness. NEUROLOGICAL: Awake, alert, oriented. Moves all extremities. No focal neurological deficit. Medications and IVs Current Medications Medications (Trade) Dose Ordered Sig/Lili Route Start Time Stop Time Status Last Admin (NS Flush) 2 ml UNSCH PRN IV FLUSH 09/09/16 19:30 (NS Flush) 2 ml BID IV FLUSH 09/09/16 21:00 09/15/16 08:54 (Tylenol) 650 mg Q4H PRN PO 09/09/16 19:30 (Zofran Inj) 4 mg Q6H PRN IVP 09/09/16 19:30 (Narcan Inj) 0.4 mg UNSCH PRN IV 09/09/16 19:30 (Neurontin) 600 mg DAILY PO 09/10/16 09:00 09/15/16 08:54 (Remeron) 15 mg HS PO 09/09/16 21:00 09/14/16 20:41 (Percocet 10-325 Mg) 1 tab Q6H PRN PO 09/09/16 19:30 09/15/16 12:27 (Norvasc) 10 mg DAILY PO 09/10/16 09:00 09/15/16 08:54 (Prinivil) 20 mg DAILY PO 09/10/16 09:00 09/15/16 08:53 (Catapres) 0.1 mg Q6H PRN PO 09/10/16 09:00 09/14/16 06:26 (Xarelto) 20 mg DAILY PO 09/12/16 09:00 09/15/16 08:54 (SoluMEDROL INJ) 40 mg Q12HR IV 09/12/16 21:00 09/15/16 08:53 (Protonix) 40 mg DAILY PO 09/12/16 20:00 09/15/16 08:54 (Levaquin) 250 mg DAILY@11 PO 09/16/16 11:00 (Mycostatin Powder) 1 applic Q12HR TOPICAL 09/15/16 21:00 Date of Insertion: Sep 10, 2016 Date of Removal: Sep 11, 2016 A/P Assessment and Plan 76-year-old female with a past medical history is significant for oxygen dependent COPD, hypertension, hypothyroidism, history of prior respiratory failure with intubation, pneumonia 1 year ago, polycystic kidney disease and CHF who presents to [facility] ED with complaints of uncontrollable shaking , slurred speech, weakness and shortness of breath. Acute on chronic hypoxic hypercapnic respiratory failure in a patient with oxygen-dependent COPD and history of pneumonia 1 year ago - Stable - VQ scan negative for PE. - Continue with supplemental oxygen. Patient O2 sats at 94% on 3LNC. - Chest x-ray personally interpreted showing patchy infiltrates in the right and left lung base. - Dr. Cummings following, very much appreciate his assistance. Agrees with Levaquin for now pending final culture and will adjust antibiotics appropriately. - Will need to address home oxygen status prior to discharge AECOPD with left shift - Continue Levaquin - DuoNeb scheduled - Supplemental oxygen - Continue home bronchodilator therapy - On IV steroids, continue on taper to po medications Bacteremia - Patient with positive blood culture 3 out of 4 - coagulase negative staph. Possible contamination. - repeat blood cultures show no growth on day 48hrs - ID consult requested and patient evaluated by RAINA Sánchez, very much appreciate her assistance. Per her note, patient received cortisone injection on prior to her admission which was not divulged previously in her history. Possible contaminant. F/U on repeat BC, NGTD. Agrees with continuation of Levaquin, changed from IV to by mouth. Chest pain - no complaints of chest pain x 48hrs - discontinue telemetry Hypernatremia - Resolved Hyperkalemia - Resolved BILL - Resolved UTI - Urine culture positive for Escherichia coli - Continue on Levaquin po - repeat UA negative Urinary incontinence - Possibly related to UTI. On po abx as stated above. - also may be related to deconditioning/weakness/loss of mobility. Continue with PT. - will continue to monitor AMS - Resolved, patient's mentation back to baseline. - Patient with complaints of hallucinations, informed by nursing staff, now resolved. Suspected due to infection and hypoxia. - CT that shows no evidence of significant hemorrhage or mass effect. - Carotid ultrasound shows no evidence of stenosis. - EEG shows mild encephalopathy, no active seizure activity. HTN and History of CHF, grade 1 diastolic dysfunction - BP 130/75 - continue with home meds - Last echocardiogram in the system 08/2014 shows an EF of 55-60%, no regional wall motion abnormalities - Continue to monitor for evidence of fluid overload - BNP slightly elevated at 284 History of chronic pain syndrome secondary to fibromyalgia, arthritis and DDD of the spine - Continue home medication of Neurontin 600 mg every 6 hours History of DVT - On Xarelto at home. - Ddimer negative, V/Q without evidence of PE. Patient asymptomatic with no evidence of edema or pain on examination of legs. Low likelihood of DVT. Heparin discontinued. Patient resumed on home Xarelto dose. History of polycystic kidney disease - BUN/creatinine improved Anemia - chronic - appears stable DVT/GI prophylaxis - SCDs/GERALDO hose - PPI Written by Olga Lidia Camacho, acting as scribe for Dr. Kennedy on 09/15/16 at 10 :17. All or portions of this note were transcribed by scribe Olga Lidia Camacho. I, Dr. Geoff Kennedy personally performed the history, physical exam, and medical decision making; and confirmed the accuracy of the information in the transcribed note. Authenticated by Dr. Geoff Kennedy on 09/16/16 at 07:48. Olga Lidia Camacoh Sep 15, 2016 11:17 Geoff Kennedy MD Sep 16, 2016 07:48
[2016-09-15 11:31] LABS: COMMENT (UR) CULT NOT INDICATED; CULTURE IF INDICATED CULT NOT INDICATED; METHOD OF COLLECTION VOIDED; SQUAMOUS EPITHELIAL CELL URINE 0-5 /hpf (0-5); URINE COLOR YELLOW (YELLW/STRAW); WBC, URINE 0-2 /hpf (0-5)
--- NOTE | 2016-09-15 19:13 | HHI.PR ---
Subjective Remarks 76 YOWF with COPD exac,Bactremia, ? contamination, UTI Feels better No fever Rpt BC negative No pain Objective Vital Signs Vital Signs Date Time Temp Pulse Resp B/P Pulse Ox O2 Delivery O2 Flow Rate FiO2 09/15/16 15:51 97.9 82 20 130/75 93 09/15/16 12:00 98.0 68 20 131/72 93 09/15/16 08:21 94 Nasal Cannula 3.00 09/15/16 08:00 62 09/15/16 08:00 97.4 62 20 140/85 95 09/15/16 04:00 96.6 68 18 115/65 96 09/15/16 00:00 97.4 64 18 120/65 96 09/14/16 20:00 97.8 70 18 120/65 96 09/14/16 19:45 56 09/14/16 19:39 93 Nasal Cannula 3.00 I/O 09/14/16 09/14/16 09/14/16 09/15/16 09/15/16 09/15/16 07:00 15:00 23:00 07:00 15:00 23:00 Intake Total 190 ml 200 ml 1050 ml 0 ml 1050 ml Output Total 600 ml Balance 190 ml 200 ml 1050 ml 0 ml 450 ml Intake Oral 200 ml 1050 ml 1050 ml IV Total 190 ml 0 ml 0 ml Output Urine Total 600 ml # Voids 5 # Bowel Movements 1 Result Diagram: 09/11/16 0450 09/12/16 0517 Objective Remarks GENERAL: MBMN WF, mild sob SKIN: Warm and dry. HEAD: Normocephalic. EYES: No scleral icterus. No injection or drainage. NECK: Supple, trachea midline. No JVD or lymphadenopathy. CARDIOVASCULAR: Regular rate and rhythm without murmurs, gallops, or rubs. RESPIRATORY: Breath sounds equal bilaterally. No accessory muscle use. End exp rhonchi GASTROINTESTINAL: Abdomen soft, non-tender, nondistended. MUSCULOSKELETAL: No cyanosis, or edema. BACK: Nontender without obvious deformity. No CVA tenderness. A/P Assessment and Plan COPD Exac E.coli UTI Bactremia , contamination Compensated Resp acidosis DVT PLAN: Cont Abx Levaquin IV Solumedrol and wean Aerosol nebs Xarelto 20 mg daily Supplement 02 Arvind Cummings MD Sep 15, 2016 19:13
[2016-09-15] MEDS: MIRTAZAPINE 15 MG TAB PO SCH (20:51)
[2016-09-15] MEDS: NYSTATIN 100,000 U/GM PWD 15 GM BTL TOPICAL SCH (21:00)
[2016-09-16] VITALS: BP 140/73; PULSE 60; RESP 18; TEMP 96.8; O2SAT 96
[2016-09-16] MEDS: oxyCODONE/ACETAMINOPHEN 10 MG/325 MG TAB PO PRN ×3 (02:05→14:13)
[2016-09-16 04:00] VITALS: BP 156/80; PULSE 59; RESP 18; TEMP 97.2; O2SAT 96
[2016-09-16 08:00] VITALS: BP 144/79; PULSE 53; RESP 18; TEMP 98.2; O2SAT 92
[2016-09-16] MEDS: NYSTATIN 100,000 U/GM PWD 15 GM BTL TOPICAL SCH (08:22)
[2016-09-16] MEDS: GABAPENTIN 300 MG CAP PO SCH (08:22)
[2016-09-16] MEDS: RIVAROXABAN 20 MG TAB PO SCH (08:22)
[2016-09-16] MEDS: LISINOPRIL 20 MG TAB PO SCH (08:22)
[2016-09-16] MEDS: SODIUM CHLORIDE 0.9% FLUSH 10 ML FLUSH IV FLUSH SCH (08:23)
[2016-09-16] MEDS: PANTOPRAZOLE SOD 40 MG DELAYED RELEASE TAB PO SCH (08:23)
[2016-09-16] MEDS ORDERED: methylPREDNISolone SOD SUCC 40 MG/1 ML VIAL IV SCH (09:00)
[2016-09-16 10:00] VITALS: O2SAT 96
[2016-09-16] MEDS ORDERED: LEVOFLOXACIN 250 MG TAB PO SCH (11:00)
[2016-09-16 12:00] VITALS: BP 135/72; PULSE 72; RESP 17; TEMP 97.7; O2SAT 95
--- NOTE | 2016-09-16 15:04 | HHI.DS ---
Discharge Summary Admission Date Sep 10, 2016 at 12:13 Discharge Date: Sep 16, 2016 Admitting Diagnosis COPD exacerbation/dehydration/hypernatremia (1) Bacteremia due to coagulase-negative Staphylococcus ICD Code: R78.81 (2) Chronic obstructive pulmonary disease with acute exacerbation ICD Code: J44.1 (3) UTI (urinary tract infection) ICD Code: N39.0 (4) Respiratory failure with hypoxia ICD Code: J96.91 (5) Acute respiratory failure with hypoxia and hypercapnia ICD Code: J96.01 (6) Chronic respiratory failure with hypoxia and hypercapnia ICD Code: J96.11 (7) Hypernatremia ICD Code: E87.0 (8) Hyperkalemia ICD Code: E87.5 (9) Chest pain ICD Code: R07.9 (10) Acute kidney injury ICD Code: N17.9 (11) Altered mental status ICD Code: R41.82 (12) Dehydration ICD Code: E86.0 (13) Yeast dermatitis ICD Code: B37.2 Procedures None Brief History - From Admission This is 76-year-old female with a past medical history is significant for oxygen dependent COPD, hypertension, hypothyroidism, history of prior respiratory failure with intubation, pneumonia 1 year ago, polycystic kidney disease and CHF who presents to [facility] ED with complaints of uncontrollable shaking, slurred speech, weakness and shortness of breath. She was brought in by EMS on a BiPAP which she did not tolerate well and was placed on a nonrebreather. Patient denies any recent increase in cough or sputum production. She denies any recent illness including fever or chills, nausea/ vomiting, diarrhea or any other symptoms. While on the floor, patient developed burning chest pain across the anterior chest. In the ED, EKG revealed normal sinus rhythm with a rate of 71, occasional PACs and a right bundle branch block pattern, no signs of acute ST-T elevations and nonspecific inferior T-wave depressions. X-ray did not show any signs of acute pneumonia. She was given Solu-Medrol and DuoNeb nebs in the ED with some improvement in her shortness of breath. She is tachycardic with a low-grade temp of 99.3. White count is normal at 7.2 but she does have a left shift. Chest x-ray reveals chart, patchy infiltrates in the right lung and left lung base. CBC/BMP: 09/12/16 0517 Imaging Last Impressions Lung Scan-VQ Nuclear Medicine 09/10/16 0000 Signed Impressions: Service Date/Time: Saturday, September 10, 2016 12:36 - CONCLUSION: 1. Normal perfusion scan. No significant defect is seen. 2. Heterogeneous ventilation with central clumping of tracer suggesting COPD. Levi Blunt MD Head CT 09/10/16 0000 Signed Impressions: Service Date/Time: Saturday, September 10, 2016 17:32 - CONCLUSION: There is no evidence of any significant hemorrhage or mass effect. Anuradha Anthony MD Chest X-Ray 09/10/16 0000 Signed Impressions: Service Date/Time: Saturday, September 10, 2016 02:26 - CONCLUSION: No significant change has occurred. Kumar Leggett MD Carotid Artery Ultrasound 09/10/16 0000 Signed Impressions: Service Date/Time: Saturday, September 10, 2016 13:13 - CONCLUSION: No evidence of flow-limiting carotid stenosis. Jasper Bautista MD PE at Discharge GENERAL: This is a well-nourished, well-developed patient, in no apparent distress. Lying in hospital bed. A&Ox3. SKIN: Candidal rash underneath both breasts Warm and dry. HEAD: Atraumatic. Normocephalic. EYES: EOMI. CARDIOVASCULAR: Regular rate and rhythm with no murmur, rub or gallop. RESPIRATORY: Scattered wheezing. Diminished breath sounds but clear. GASTROINTESTINAL: Abdomen soft, non-tender, nondistended. No hepato-splenomegaly , or palpable masses. No guarding. MUSCULOSKELETAL: Extremities without clubbing, cyanosis, or edema. No joint tenderness, effusion, or edema noted. No calf tenderness. NEUROLOGICAL: Awake, alert, oriented. Moves all extremities. No focal neurological deficit. Pt update on day of discharge Patient reports that she's feeling much better. Shortness of breath has returned to baseline. She has no acute complaints today. He feels he is ready to go home. Discussed with Dr. Bro, Dr. Cummings, patient and nursing staff. Hospital Course Patient admitted with acute on chronic hypoxic hypercapnic respiratory failure in an oxygen dependent COPD patient. ABG revealed pH 7.376, PCO2 53.1, PO2 49.9 and O2 saturation of 84%. Patient was started on a nonrebreather. Admitted revealing patchy infiltrates in the right and left lung base. Patient was treated for COPD exacerbation with scheduled DuoNeb's, IV steroids supplemental oxygen and resumption of her home bronchodilator therapy. She was seen in consultation by pulmonary medicine. She complained of chest pain and a 12-lead EKG was obtained which showed no evidence of ischemic changes. Patient continued to be monitored on cardiac telemetry. Cardiac enzymes were cycled and were unremarkable. Found to have hypernatremia due to suspected dehydration which resolved after gentle IV fluids. She was also noted to have hyperkalemia with potassium of 5.3 which resolved after she was given Kayexalate , received albuterol treatments and had her AMENA inhibitor held. Patient was also noted to have acute kidney injury with a creatinine of 1.50 this also improved significantly with holding of her AMENA inhibitor and IV hydration and was 0.93 at the time of her discharge. Patient was continued on her home medications to manage her other comorbidities including resumption of her Xarelto for treatment of previous DVT. Urinalysis was suggestive of urinary tract infection and patient was started on IV Levaquin. Follow-up urine culture grew Escherichia coli which was susceptible to fluoroquinolones. Patient grew coagulase-negative staph in 3 out of 4 blood cultures. Repeat blood cultures were ordered and patient was asked to be seen in consultation by ID. It was felt this is probably a contaminant. Patient complained of itchy burning rash underneath both breasts which was consistent with Lyssa infection. Patient was treated with nystatin powder twice a day. PT eval was requested and patient progressed well. Per their recommendation, she would not require PT at time of discharge. Patient repeat blood cultures failed to show any growth in 3 days time and repeat urinalysis was unremarkable. She was given clearance to be discharged from both pulmonary standpoint as well as ID who confirmed the initial blood cultures were contaminated. Pt Condition on Discharge: Stable Discharge Disposition: Discharge Home Discharge Time: > 30 minutes Discharge Instructions DIET: Follow Instructions for: Heart Healthy Diet Activities you can perform: Regular-No Restrictions Follow up Referrals: Internal Medicine PCP Follow-up - 2-3 Days Pulmonology - 1 Week with Arvind Cummings MD New Medications: Methylprednisolone Dosepak (Medrol Dosepak) 4 Mg Dspk 4 MG PO DIRECTED Per Pharmacist direction #1 Ref 0 DSPK Levofloxacin (Levaquin) 250 Mg Tab 250 MG PO DAILY@11 UTI #4 TAB Nystatin Topical (Nystop Topical) 100,000 Unit/Gm Powd 1 APPLIC TOPICAL Q12HR Rash #30 GM Continued Medications: Alendronate (Alendronate) 70 Mg Tab 70 MG PO Q7D Osteporosis Treatment #4 Ref 0 TAB Amlodipine-Benazepril (Amlodipine-Benazepril) 10-20 Mg Cap 1 CAP PO DAILY Blood Pressure Management #30 Ref 0 CAP Gabapentin (Gabapentin) 600 Mg Tab 600 MG PO QID #60 Ref 0 TAB Mirtazapine (Mirtazapine) 15 Mg Tab 15 MG PO HS Depression Control #30 Ref 0 TAB Oxycodone-Acetaminophen (Oxycodone-Acetaminophen) 10-325 mg Tab 1 TAB PO Q6H PRN PAIN Ref 0 TAB Rivaroxaban (Xarelto) 20 Mg Tab 20 MG PO DAILY Blood Clot Prevention Ref 0 TAB Additional Information Written by Olga Lidia Camacho PA-C acting as scribe for Dr. Kennedy on 09/16/16 at 15:16. All or portions of this note were transcribed by scribe Olga Lidia Camacho PA-C. I, Dr. Geoff Kennedy personally performed the history, physical exam, and medical decision making; and confirmed the accuracy of the information in the transcribed note. Authenticated by Dr. Geoff Kennedy on 09/16/16 at 18:26. Olga Lidia Camacho Sep 16, 2016 15:04 Geoff Kennedy MD Sep 16, 2016 18:26
[2016-09-16] MEDS ORDERED: LEVA250T PO (15:12)
[2016-09-16] MEDS ORDERED: NYST10007 TOPICAL (15:12)
[2016-09-16] MEDS ORDERED: MEDR4PAK PO (15:12)
--- NOTE | 2016-09-16 15:15 | HHI.DCPOC ---
Discharge Care Plan Diagnosis: (1) Community acquired pneumonia (2) Bacteremia due to coagulase-negative Staphylococcus (3) Respiratory failure with hypoxia (4) Dehydration (5) Hyperkalemia (6) Hypernatremia (7) UTI (urinary tract infection) (8) Altered mental status (9) Chest pain (10) Acute kidney injury (11) Chronic obstructive pulmonary disease with acute exacerbation (12) Yeast dermatitis (13) Acute respiratory failure with hypoxia and hypercapnia (14) Chronic respiratory failure with hypoxia and hypercapnia Goals to Promote Your Health * To prevent worsening of your condition and complications * To maintain your health at the optimal level Directions to Meet Your Goals Take your medications as prescribed Follow your dietary instruction Follow activity as directed Keep your appointments as scheduled Take your immunizations and boosters as scheduled If your symptoms worsen call your PCP, if no PCP go to Urgent Care Center or Emergency Room Smoking is Dangerous to Your Health. Avoid second hand smoke Call the 24-hour hour crisis hotline for domestic abuse at Olga Lidia Camacho Sep 16, 2016 15:15
[2016-09-16 16:00] VITALS: BP 132/79; PULSE 68; RESP 18; TEMP 98; O2SAT 98
--- NOTE | 2016-09-16 17:09 | HHI.PR ---
Subjective Remarks 76 YOWF with COPD exac,Bactremia, ? contamination, UTI Feels better No fever Rpt BC negative No pain Breathing better Objective Vital Signs Vital Signs Date Time Temp Pulse Resp B/P Pulse Ox O2 Delivery O2 Flow Rate FiO2 09/16/16 16:00 98.0 68 18 132/79 98 09/16/16 12:00 97.7 72 17 135/72 95 09/16/16 10:00 96 Nasal Cannula 3.00 09/16/16 08:00 98.2 53 18 144/79 92 09/16/16 04:00 97.2 59 18 156/80 96 09/16/16 03:05 18 09/16/16 00:00 96.8 60 18 140/73 96 09/15/16 20:27 94 Nasal Cannula 3.00 09/15/16 20:03 59 09/15/16 20:00 97.8 60 18 136/85 96 I/O 09/15/16 09/15/16 09/15/16 09/16/16 09/16/16 09/16/16 07:00 15:00 23:00 07:00 15:00 23:00 Intake Total 0 ml 1050 ml 240 ml 240 ml Output Total 600 ml Balance 0 ml 450 ml 240 ml 240 ml Intake Oral 1050 ml 240 ml 240 ml IV Total 0 ml Output Urine Total 600 ml # Voids 2 4 # Bowel Movements 0 0 Result Diagram: 09/12/16 0517 Objective Remarks GENERAL: MBMN WF, mild sob SKIN: Warm and dry. HEAD: Normocephalic. EYES: No scleral icterus. No injection or drainage. NECK: Supple, trachea midline. No JVD or lymphadenopathy. CARDIOVASCULAR: Regular rate and rhythm without murmurs, gallops, or rubs. RESPIRATORY: Breath sounds equal bilaterally. No accessory muscle use. End exp rhonchi GASTROINTESTINAL: Abdomen soft, non-tender, nondistended. MUSCULOSKELETAL: No cyanosis, or edema. BACK: Nontender without obvious deformity. No CVA tenderness. A/P Assessment and Plan COPD Exac E.coli UTI Bactremia , contamination Compensated Resp acidosis DVT PLAN: Cont Abx Levaquin PO Steroids Aerosol nebs Xarelto 20 mg daily Supplement 02 DC Plans for home Will FU in office Arvind Cummings MD Sep 16, 2016 17:09
[2016-11-12] MEDS ORDERED: MILKSUS PO (22:37)
== END 2016-09-16 17:00 | disposition home or self-care (01) | DRG 190 ==
LOC: PHED 15:57 → PHEDA 18:35 → PH3B 23:01 → OBSVTOIN 09-10 12:13
PROVIDERS: ADMIT Family Medicine; ATTEND Family Medicine
DX: J44.1 Chronic obstructive pulmonary disease with (acute) exacerbation (principal); J96.21 Acute and chronic respiratory failure with hypoxia; G93.40 Encephalopathy, unspecified; N17.9 Acute kidney failure, unspecified; E87.0 Hyperosmolality and hypernatremia; R78.81 Bacteremia; B95.7 Other staphylococcus as the cause of diseases classified elsewhere; J96.22 Acute and chronic respiratory failure with hypercapnia; I50.32 Chronic diastolic (congestive) heart failure; Q61.3 Polycystic kidney, unspecified; N39.0 Urinary tract infection, site not specified; E87.2 Acidosis; I11.0 Hypertensive heart disease with heart failure; K76.0 Fatty (change of) liver, not elsewhere classified; E86.0 Dehydration; B37.2 Candidiasis of skin and nail; E78.00 Pure hypercholesterolemia, unspecified; M79.7 Fibromyalgia; D64.9 Anemia, unspecified; E78.5 Hyperlipidemia, unspecified; E89.0 Postprocedural hypothyroidism; B96.20 Unspecified Escherichia coli [E. coli] as the cause of diseases classified elsewhere; E87.5 Hyperkalemia; K57.90 Diverticulosis of intestine, part unspecified, without perforation or abscess without bleeding; K80.20 Calculus of gallbladder without cholecystitis without obstruction; H91.90 Unspecified hearing loss, unspecified ear; Z72.0 Tobacco use; Z92.3 Personal history of irradiation; Z99.81 Dependence on supplemental oxygen; Z79.01 Long term (current) use of anticoagulants; Z86.718 Personal history of other venous thrombosis and embolism; G89.4 Chronic pain syndrome
CPT/HCPCS: 36600; 70450; 71010; 78582; 80048; 80053; 81001; 82550; 82728; 82805; 82948; 83540; 83550; 83735; 83880; 84484; 85025; 85379; 85730; 86403; 87040; 87077; 87086; 87186; 87205; 93005; 93880; 94640; 94664; 95819; 96361; 96374; A9540; A9567; G0378; J1644; J1956; J2920; J2930; J7030; J7040

== ENCOUNTER 2016-09-25 21:10 | Inpatient (IN) | payer OTHER, MEDICARE ==
[~2016-09-25] VITALS: Ht 157.5 cm; Wt 80.1 kg
[2016-09-25] VITALS (10 sets, daily range): BP systolic 102–167; BP diastolic 60–78; PULSE 58–77; RESP 18–26; TEMP 97.8; O2SAT 68–100
[~2016-09-25 21:10] MED LIST changes: -ADVA250A INH; +ALEN1TAB48 PO; -ALEN70TA39 PO; -AMLO10 PO; +AMLO10CA PO; -CEFU1TAB43 PO; -CYAN1000P SQ; -DOCU1CAP39 PO; -DUONSOL2 NEB; -FURO20 PO; -GABA300C3 PO; +GABA600T PO; -HYDR-3129 PO; +LEVA250T PO; -LEVO75TA3 PO; -LISI20 PO; +MEDR4PAK PO; +MIRTA15 PO; +NYST10007 TOPICAL; -OSEL30 PO; -OSEL45 PO; +OXYC1TAB36 PO; -PRED10PA PO; -RIVA20 PO; -VENTAER INH; +XARE20TA PO; -Z.0.OXYGEN INH
[2016-09-25] MEDS: RESP: ALBUTEROL 2.5 MG/IPRATROPIUM 0.5 MG NEB (SCH) INH ×2 (21:40→21:41)
[2016-09-25] MEDS ORDERED: SODIUM CHLORIDE 0.9% FLUSH 10 ML FLUSH IVF PRN (21:45)
[2016-09-25] MEDS ORDERED: methylPREDNISolone SOD SUCC 125 MG/2 ML VIAL IVP ONE (21:45)
[2016-09-25 22:09] LABS: CHLORIDE 99 MEQ/L (98-107); POTASSIUM 4.7 MEQ/L (3.5-5.1); SODIUM (NA) 142 MEQ/L (136-145)
--- NOTE | 2016-09-25 22:09 | RADHPO ---
EXAM DATE/TIME: 09/25/2016 21:53 [place] COMPARISON: CHEST SINGLE AP, September 10, 2016, 2:26. INDICATIONS : Shortness of breath. MEDICAL HISTORY : Chronic obstructive pulmonary disease. Renal insufficiency. Hypertension. SURGICAL HISTORY : None. ENCOUNTER: Initial ACUITY: 1 day PAIN SCORE: 0/10 LOCATION: Bilateral chest FINDINGS: Bibasilar opacities have not changed since the prior examination may be chronic. Pneumonia is difficu lt to exclude particularly in the right lung base. Evidence for prior granulomatous exposure. There a re atherosclerotic calcifications of the aorta due to chronic atherosclerotic disease. The rest of th e examination has not significantly changed. CONCLUSION: Stable bibasilar opacities worse on the right. Anuradha Anthony MD on September 25, 2016 at 22:07 Board Certified Radiologist. This report was verified electronically.
[2016-09-25 22:13] LABS: ANION GAP 5 MEQ/L (5-15); BICARBONATE 38.5 MEQ/L (21.0-32.0); BLOOD UREA NITROGEN 19 MG/DL (7-18); MAGNESIUM 2.4 MG/DL (1.5-2.5)
--- NOTE | 2016-09-25 22:14 | PD ---
HPI Chief Complaint: General Weakness Time Seen by Provider: 21:43 Travel History International Travel<30 days: No Contact w/Intl Traveler<30days: No Traveled to known affect area: No History of Present Illness HPI 76-year-old female presents to the emergency department by private transportation the care of family for evaluation of not feeling well and worsening shortness of breath. Patient has extensive past medical history including COPD with continuous supplemental oxygen and previous previous respiratory failure with intubation and recent hospitalization for exacerbation COPD with respiratory failure with hypoxemia and hypercapnia without intubation , electrolyte disturbance with hyperkalemia and hypernatremia, chest pain, renal insufficiency, altered mental status, CHF, DVT, Xarelto therapy, dyslipidemia, hypertension, thyroid disease. Patient was hospitalized September 10- September 16. Since patient has been home she has been doing fairly well according to the family as patient is unable to relay her own history due to work of breathing and hypoxemia. Son states that she was seen by her primary care provider yesterday who recommended that she increase her supplemental oxygen from 2 L per nasal cannula daily to 3 L per nasal cannula daily. Patient had a normal day but then fell this evening and since falling has had increased work of breathing. Here patient complains of chest discomfort but denies any rib pain abdominal pain back pain pelvic pain does note some right leg pain. No recent new swelling of the lower extremities bilaterally. No deformity. Patient's had no fever. Patient was discharged with a 4 day course of Levaquin and a Medrol Dosepak and continued on her amlodipine and as a probable gabapentin mirtazapine oxycodone and Xarelto. Patient has had no recent febrile illness. No shaking chills. PFSH Past Medical History Narrative Medical COPD with respiratory failure with hypoxemia and hypercapnia with intubation, electrolyte disturbance with hyperkalemia and hypernatremia, chest pain, renal insufficiency, altered mental status, CHF, DVT, Xarelto therapy, dyslipidemia, hypertension, thyroid disease; prior tobacco use D/C 2013; nursing notes reviewed Arthritis: Yes Anxiety: No Depression: No Cancer: Yes Cardiovascular Problems: Yes High Cholesterol: Yes Chemotherapy: No COPD: Yes Diabetes: No Diminished Hearing: Yes Deep Vein Thrombosis: Yes (x2 ) Fibromyalgia: Yes Gastrointestinal Disorders: No Genitourinary: Yes Hypertension: Yes Immune Disorder: No Implanted Vascular Access Dvce: No Musculoskeletal: Yes Neurologic: No Reproductive: No Respiratory: Yes (HOME O2/OXYGEN DEPENDENT) Radiation Therapy: Yes (FOR GOITER) Thyroid Disease: Yes ?: Not Menopausal: Yes Tubal Ligation: Yes Past Surgical History Ear Surgery: Yes (INPLANT RT/ CATARACT) Eye Surgery: Yes (CATARACT) Gynecologic Surgery: Yes (TUBAL LIGATION) Tonsillectomy: Yes Other Surgery: Yes Social History Alcohol Use: No Tobacco Use: No (quit 2013 smoked 1 ppd cigs for 57 yrs) Substance Use: No Allergies-Medications (Allergen,Severity, Reaction): Coded Allergies: Azithromycin (Verified Allergy, Severe, STOMACH CRAMPS, 09/25/16) Penicillin (Verified Allergy, Severe, 09/25/16) Reported Meds & Prescriptions Reported Meds & Active Scripts Active Medrol Dosepak (Methylprednisolone) 4 Mg Dspk 4 Mg PO DIRECTED Per Pharmacist direction Nystop Topical (Nystatin Topical) 100,000 Unit/Gm Powd 1 Applic TOPICAL Q12HR Levaquin (Levofloxacin) 250 Mg Tab 250 Mg PO DAILY@11 Reported Alendronate (Alendronate Sodium) 70 Mg Tab 70 Mg PO Q7D Mirtazapine 15 Mg Tab 15 Mg PO HS Xarelto (Rivaroxaban) 20 Mg Tab 20 Mg PO DAILY Amlodipine-Benazepril 10-20 Mg Cap 1 Cap PO DAILY Gabapentin 600 Mg Tab 600 Mg PO QID Oxycodone-Acetaminophen 10-325 mg Tab 1 Tab PO Q6H PRN Review of Systems Except as stated in HPI: all other systems reviewed are Neg General / Constitutional: No: Fever, Chills HENT: No: Congestion Cardiovascular: Positive: Chest Pain or Discomfort Respiratory: Positive: Shortness of Breath Gastrointestinal: No: Vomiting, Abdominal Pain Genitourinary: No: Dysuria, Flank Pain Musculoskeletal: No: Myalgias, Arthralgias Skin: No Rash Neurologic: Positive: Weakness, No: Headache Psychiatric: No: Anxiety Hematologic/Lymphatic: No: Easy Bruising Physical Exam Narrative GENERAL: Elderly female in moderate respiratory distress with poor ventilatory effort and 3L/M NC O2 saturation 68% SKIN: Warm and dry. HEAD: Normocephalic. EYES: No scleral icterus. No injection or drainage. NECK: Supple, trachea midline. No JVD or lymphadenopathy. CARDIOVASCULAR: Regular rate and rhythm without murmurs, gallops, or rubs. RESPIRATORY: Breath sounds equal bilaterally. No accessory muscle use. GASTROINTESTINAL: Abdomen soft, non-tender, nondistended. MUSCULOSKELETAL: No cyanosis, or edema. BACK: Nontender without obvious deformity. No CVA tenderness. Data Data Last Documented VS Vital Signs Date Time Temp Pulse Resp B/P Pulse Ox O2 Delivery O2 Flow Rate FiO2 09/25/16 23:40 68 18 117/60 96 BiPAP 35 09/25/16 21:20 97.8 Orders Complete Blood Count With Diff (09/25/16 21:35) Comprehensive Metabolic Panel (09/25/16 21:35) B-Type Natriuretic Peptide (09/25/16 21:35) Act Partial Throm Time (Ptt) (09/25/16 21:35) Prothrombin Time / Inr (Pt) (09/25/16 21:35) Magnesium (Mg) (09/25/16 21:35) Ckmb (Isoenzyme) Profile (09/25/16 21:35) Troponin I (09/25/16 21:35) Urinalysis - C+S If Indicated (09/25/16 21:35) Blood Culture (09/25/16 21:35) Iv Access Insert/Monitor (09/25/16 21:35) Electrocardiogram (09/25/16 21:35) Ecg Monitoring (09/25/16 21:35) Oximetry (09/25/16 21:35) Oxygen Administration (09/25/16 21:35) Chest, Single Ap (09/25/16 21:35) Sodium Chloride 0.9% Flush (Ns Flush) (09/25/16 21:45) Methylprednisolone So Succ Inj (Solumedr (09/25/16 21:45) Albuterol-Ipratropium Neb (Duoneb Neb) (09/25/16 21:45) Resp Bipap / Cpap Non Invas Vt (09/25/16 ) Lactic Acid Sepsis Protocol (09/25/16 21:35) Resp Bipap / Cpap Non Invas Vt (09/25/16 21:43) Ct Brain W/O Iv Contrast(Rout) (09/25/16 ) Aztreonam Inj (Azactam Inj) (09/25/16 22:30) Sodium Chlorid 0.9% 500 Ml Inj (Ns 500 M (09/25/16 22:30) Doxycycline Inj (Vibramycin Inj) (09/25/16 22:45) Arterial Blood Gas (Abg) (09/25/16 ) Admit Order (Ed Use Only) (09/26/16 ) ^ Saline Lock (09/26/16 00:01) Resp Oxygen Vish C Titrat 1-4 L (09/26/16 ) Notify Dr: Other (09/26/16 00:01) Sodium Chloride 0.9% Flush (Ns Flush) (09/26/16 09:00) Sodium Chloride 0.9% Flush (Ns Flush) (09/26/16 00:15) Diet Heart Healthy (09/26/16 Breakfast) Vital Signs (Adult) KESHAV.Q4H (09/26/16 00:01) Resp Oxygen Vish C Titrat 1-4 L (09/26/16 ) Methylprednisolone So Succ Inj (Solumedr (09/26/16 04:00) Albuterol-Ipratropium Neb (Duoneb Neb) (09/26/16 04:00) Albuterol Neb (Albuterol Neb) (09/26/16 00:15) Arterial Blood Gas (Abg) (09/26/16 07:00) Labs Laboratory Tests Test 09/25/16 09/25/16 21:30 22:40 White Blood Count 8.9 TH/MM3 Red Blood Count 3.88 MIL/MM3 Hemoglobin 11.7 GM/DL Hematocrit 37.0 % Mean Corpuscular Volume 95.4 FL Mean Corpuscular Hemoglobin 30.2 PG Mean Corpuscular Hemoglobin 31.7 % Concent Red Cell Distribution Width 15.3 % Platelet Count 207 TH/MM3 Mean Platelet Volume 8.8 FL Neutrophils (%) (Auto) 62.1 % Lymphocytes (%) (Auto) 30.9 % Monocytes (%) (Auto) 5.6 % Eosinophils (%) (Auto) 0.6 % Basophils (%) (Auto) 0.8 % Neutrophils # (Auto) 5.5 TH/MM3 Lymphocytes # (Auto) 2.7 TH/MM3 Monocytes # (Auto) 0.5 TH/MM3 Eosinophils # (Auto) 0.1 TH/MM3 Basophils # (Auto) 0.1 TH/MM3 CBC Comment DIFF FINAL Differential Comment Prothrombin Time 10.6 SEC Prothromb Time International 1.0 RATIO Ratio Activated Partial 27.5 SEC Thromboplast Time Sodium Level 142 MEQ/L Potassium Level 4.7 MEQ/L Chloride Level 99 MEQ/L Carbon Dioxide Level 38.5 MEQ/L Anion Gap 5 MEQ/L Blood Urea Nitrogen 19 MG/DL Creatinine 1.10 MG/DL Estimat Glomerular Filtration 48 ML/MIN Rate Random Glucose 86 MG/DL Lactic Acid Level 1.1 mmol/L Calcium Level 9.7 MG/DL Magnesium Level 2.4 MG/DL Total Bilirubin 0.3 MG/DL Aspartate Amino Transf 11 U/L (AST/SGOT) Alanine Aminotransferase 15 U/L (ALT/SGPT) Alkaline Phosphatase 28 U/L Total Creatine Kinase 35 U/L Troponin I LESS THAN 0.02 NG/ML B-Type Natriuretic Peptide 176 PG/ML Total Protein 6.5 GM/DL Albumin 3.2 GM/DL Blood Gas Puncture Site RT RADIAL Blood Gas Patient Temperature 98.6 Blood Gas HCO3 38 mmol/L Blood Gas Base Excess 11.5 mmol/L Blood Gas Oxygen Saturation 94 % Arterial Blood pH 7.32 Arterial Blood Partial 76 mmHG Pressure CO2 Arterial Blood Partial 81 mmHG Pressure O2 Arterial Blood Oxygen Content 13.5 Vol % Arterial Blood 1.8 % Carboxyhemoglobin Arterial Blood Methemoglobin 0.9 % Blood Gas Hemoglobin 10.1 G/DL Oxygen Delivery Device NPPV Blood Gas Ventilator Setting 10PS/5PEEP Blood Gas Inspired Oxygen 40 % [facility] Medical Decision Making Medical Screen Exam Complete: Yes Emergency Medical Condition: Yes Medical Record Reviewed: Yes Interpretation(s) EKG sinus rhythm rate 81 right 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 Anuradha Anthony MD on September 25, 2016 at 23:40 Board Certified Radiologist. This report was verified electronically. Differential Diagnosis Acute exacerbation COPD respiratory failure with hypoxemia/hypercarbia, chest pain, CAD, ACS, CHF, PE, pneumonia, head injury, ICH; also to consider inadequate oxygen supply Narrative Course Patient placed on cardiac cath technologist found to be in sinus rhythm with low O2 saturation 68% on room air placed on 6 L with slight improvement and immediately placed to BiPAP 15 over 5% FiO2 with marked improvement on ventilatory effort lung sounds and apparent oxygenation with pulse oximetry 96% ; patient administered 3 DuoNeb updrafts along with Solu-Medrol 125 mg IV; specimens collected and sent for resulting including blood cultures and lactic for sepsis protocol. At 10:45 PM patient resting comfortably on BiPAP 15 over 5 40% FiO2 O2 saturation 96% blood pressure 102/64 heart rate 58 sinus bradycardia; patient reports that she is no longer experiencing shortness of breath no chest pain and feels improved by simple questions. CT brain noncontrast pending. Labs resulted CBC with automated differential values in normal range; lactic acid 1.1 , not elevated troponin I less than 0.02, not elevated BNP 178 mildly elevated remainder of complete metabolic panel mild renal insufficiency otherwise denies grossly within normal limits except for bicarbonate of 35.8 Critical Care Narrative Aggregate critical care time was 40 minutes. Time to perform other separately billable procedures was not included in the critical care time. My time did not include minutes spent treating any other patients simultaneously or on activities that did not directly contribute to the patient's treatment. The services I provided to this patient were to treat and/or prevent clinically significant deterioration that could result in: Respiratory arrest, I provided critical care services requiring my management, as noted below: Chart data review, documentation time, medication orders and management, vital sign assessments/reviewing monitor data, ordering and reviewing lab tests, ordering and interpreting/reviewing x-rays and diagnostic studies, care of the patient and discussion of the patient with the admitting physicians. Physician Communication Physician Communication discuused w/ cooker pie filling; admitted by Dr Abdi Diagnosis Primary Impression: Chronic obstructive pulmonary disease with acute exacerbation Additional Impression: Chronic respiratory failure with hypoxia and hypercapnia Admitting Information Admitting Physician Requests: Admit Kailee Echols MD Sep 25, 2016 22:13
[2016-09-25 22:15] LABS: APTT (PATIENT) 27.5 SEC (24.3-30.1); PROTHROMBIN TIME - PATIENT 10.6 SEC (9.8-11.6)
[2016-09-25 22:16] LABS: ALT (GPT) 15 U/L (10-53); AST (GOT) 11 U/L (15-37); AUTOMATED NEUTROPHIL # 5.5 TH/MM3 (1.8-7.7); BASOPHIL # 0.1 TH/MM3 (0-0.2); BASOPHIL % 0.8 % (0.0-2.0); EOSINOPHIL # 0.1 TH/MM3 (0-0.4); EOSINOPHIL % 0.6 % (0.0-4.0); GLOMERULAR FILTRATION RATE 48 ML/MIN (>89); HEMO FLAGS DIFF FINAL; LYMPH % 30.9 % (9.0-44.0); LYMPHOCYTE # 2.7 TH/MM3 (1.0-4.8); MEAN CELL VOLUME 95.4 FL (80.0-100.0); MEAN CORPUSCULAR HEMOGLOBIN 30.2 PG (27.0-34.0); MEAN CORPUSCULAR HGB CONC 31.7 % (32.0-36.0); MONO % 5.6 % (0.0-8.0); NEUT % 62.1 % (16.0-70.0); PLATELET COUNT 207 TH/MM3 (150-450); RED BLOOD COUNT 3.88 MIL/MM3 (4.00-5.30); RED CELL DISTRIBUTION WIDTH 15.3 % (11.6-17.2); WHITE BLOOD COUNT 8.9 TH/MM3 (4.0-11.0)
[2016-09-25 22:17] LABS: TOTAL BILIRUBIN ADULT 0.3 MG/DL (0.2-1.0)
[2016-09-25 22:19] LABS: ALKALINE PHOSPHATASE 28 U/L (45-117)
[2016-09-25 22:28] LABS: CREATINE KINASE 35 U/L (26-192)
[2016-09-25] MEDS ORDERED: SODIUM CHLORID 0.9% 500 ML INJ 500 ML IV ONE (22:30)
[2016-09-25] MEDS ORDERED: AZTREONAM INJ 2,000 MG in SODIUM CHLORIDE 0.9% INJ 100 ML IV ONE (22:30)
[2016-09-25] MEDS ORDERED: DOXYCYCLINE INJ 100 MG in SODIUM CHLORIDE 0.9% INJ 100 ML IV ONE (22:45)
[2016-09-25 22:48] LABS: BLOOD GAS BASE EXCESS 11.5 mmol/L (-2-2); BLOOD GAS CARBOXYHEMOGLOBIN 1.8 % (0-4); BLOOD GAS HCO3 38 mmol/L (22-26); BLOOD GAS METHEMOGLOBIN 0.9 % (0-2); BLOOD GAS O2 HGB SATURATION 94 % (90-100); BLOOD GAS OXYGEN CONTENT 13.5 Vol % (12.0-20.0); BLOOD GAS PCO2 76 mmHG (38-42); BLOOD GAS PO2 81 mmHG (61-120); BLOOD GAS TOTAL HGB 10.1 G/DL (12.0-16.0); CRITICAL VALUE YES; DRAW SITE RT RADIAL; FIO2 40 %; NUMBER OF ARTERIAL PUNCTURES 1; OXYGEN DEVICE NPPV; STAT YES; TEMP CORR TO 98.6; ULNAR PULSE PRESENT; VENT SETTINGS 10PS/5PEEP
--- NOTE | 2016-09-25 23:43 | RADHPO ---
EXAM DATE/TIME: 09/25/2016 23:08 [facility] COMPARISON: CT BRAIN W/O CONTRAST, September 10, 2016, 17:32. INDICATIONS : General weakness. RADIATION DOSE: 64.02 CTDIvol (mGy) MEDICAL HISTORY : Chronic obstructive pulmonary disease. Renal insufficiency. Deep venous thrombosis.Hypertension. SURGICAL HISTORY : None. ENCOUNTER: Initial ACUITY: 1 week PAIN SCALE: 2/10 LOCATION: cranial TECHNIQUE: Multiple contiguous axial images were obtained of the head. Using automated exposure control and adj ustment of the mA and/or kV according to patient size, radiation dose was kept as low as reasonably a chievable to obtain optimal diagnostic quality images. FINDINGS: There is no evidence for intracranial hemorrhage, mass effect, mass lesions, edema, or extra-axial fl uid collections. The visualized bony structures appear intact. The ventricles are normal size for t he patient's age. There are no signs of acute infarction for technique. 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 Anuradha Anthony MD on September 25, 2016 at 23:40 Board Certified Radiologist. This report was verified electronically.
[2016-09-26] VITALS (17 sets, daily range): BP systolic 118–165; BP diastolic 58–90; PULSE 68–95; RESP 8–28; TEMP 96.8–98.2; O2SAT 82–95
[2016-09-26] MEDS ORDERED: RESP: ALBUTEROL 1.25 MG/3 ML NEB (PRN) NEB (00:15)
[2016-09-26] MEDS ORDERED: SODIUM CHLORIDE 0.9% FLUSH 10 ML FLUSH IVF PRN (00:15)
[2016-09-26] MEDS: methylPREDNISolone SOD SUCC 125 MG/2 ML VIAL IV PUSH SCH ×3 (04:29→19:40)
[2016-09-26] MEDS: RESP: ALBUTEROL 2.5 MG/IPRATROPIUM 0.5 MG NEB (SCH) NEB ×5 (04:42→23:26)
[2016-09-26 05:18] LABS: BLOOD, URINE NEG (NEG); GLUCOSE,URINE NEG (NEG); KETONE, URINE NEG (NEG); NITRITE,URINE NEG (NEG)
[2016-09-26 05:30] LABS: URINE COLOR YELLOW (YELLW/STRAW)
[2016-09-26 05:31] LABS: COMMENT (UR) CULT NOT INDICATED; CULTURE IF INDICATED CULT NOT INDICATED; RBC, URINE 0-2 /hpf (0-3); SQUAMOUS EPITHELIAL CELL URINE > 8 /hpf (0-5); WBC, URINE 0-2 /hpf (0-5)
[2016-09-26 06:51] LABS: BLOOD GAS BASE EXCESS 9.3 mmol/L (-2-2); BLOOD GAS HCO3 34 mmol/L (22-26); BLOOD GAS O2 HGB SATURATION 92 % (90-100); BLOOD GAS OXYGEN CONTENT 14.6 Vol % (12.0-20.0); BLOOD GAS PCO2 57 mmHG (38-42); BLOOD GAS PO2 67 mmHG (61-120); BLOOD GAS TOTAL HGB 11.3 G/DL (12.0-16.0); CRITICAL VALUE YES; TEMP CORR TO 98.6
[2016-09-26 06:52] LABS: DRAW SITE RT RADIAL; FIO2 35 %; NUMBER OF ARTERIAL PUNCTURES 1; OXYGEN DEVICE VENTILATOR; STAT NO; ULNAR PULSE PRESENT; VENT SETTINGS NPPV/PSV
[2016-09-26] MEDS: SODIUM CHLORIDE 0.9% FLUSH 10 ML FLUSH IV FLUSH SCH ×2 (09:00→20:28)
[2016-09-26] MEDS: BUDESONIDE-FORMOTEROL 160/4.5 MCG INHALER INH SCH ×2 (13:18→20:28)
--- NOTE | 2016-09-26 13:31 | EKG ---
Date Performed: 09/25/2016 Time Performed: 21:30:38 PTAGE: 76 years EKG: Sinus rhythm with PVC(s) Left axis deviation RBBB with left anterior fascicular block Low QRS voltages in precord ial leads Compared to prior tracing no significant change Abnormal ECG PREVIOUS TRACING : 09/10/2016 09.37 DOCTOR: Jim Taylor Interpretating Date/Time 09/26/2016 13:31:13
[2016-09-26] MEDS ORDERED: RIVAROXABAN 20 MG TAB PO ONE (14:30)
[2016-09-26] MEDS: oxyCODONE/ACETAMINOPHEN 10 MG/325 MG TAB PO PRN ×2 (14:41→20:28)
--- NOTE | 2016-09-26 16:34 | HHI.HP ---
cc: Fernanda Fox MD [facility] Primary Care Physician Fernanda Fox MD Admission Diagnosis exacerbation COPD Diagnoses: (1) Chronic obstructive pulmonary disease with acute exacerbation Diagnosis: Principal (2) Hypercapnic respiratory failure, chronic Diagnosis: Principal (3) Lightheadedness Diagnosis: Principal (4) Acute kidney injury Diagnosis: Principal Chief Complaint: increasing SOB Travel History International Travel<30 Days: No Contact w/Intl Traveler <30 Da: No Traveled to Known Affected Are: No History of Present Illness 76 year-old female with history of COPD with chronic respiratory failure, DVT, CHF, hyperlipidemia, hypertension, thyroid disease, arthritis, RLS , and sciatica presents with complaint of worsening shortness of breath and "shakes and jitters". The patient was recently admitted on September 10- for COPD exacerbation, chest pain, hypernatremia, hyperkalemia, BILL, UTI, altered mental status. She was discharged home. Patient states she went home and "couldn't breathe". States she did follow up with her primary care physician the Thursday after she was discharged and no medication changes were made. The patient states she was "screwed up" on her Medrol and was not sure what to take. She states she has ongoing difficulty breathing but it was becoming worse. She states she has had shakes and jitters which are worse since last time she was admitted but states she has had "jerks" for the past 2 months. Her granddaughter is at bedside and states she has not been doing well since she went home and was falling. The patient states she has been lightheaded since that time. Patient states yesterday she walked to the bathroom became lightheaded and hit her head on the wall. She states she gets lightheaded when going from the bed to the chair. She currently admits to a frontal and occipital sharp headache 12/29 which just started. She admits to generalized weakness than states is worse on right but this has been ongoing for a couple of years. Admits to some blurry vision but her granddaughter states she's post wearing glasses. Admits to always being chilly. She denies any sore throat or cough. Denies any chest pain. Denies any nausea or vomiting. She has not had a bowel movement in 3 days but denies feeling constipated. Patient additionally states she has been trying to slow down on her gabapentin and pain medication. She is now taking gabapentin 3 times a day instead of 4. She states the last couple nights she has woken up not knowing where she was. Review of Systems Except as stated in HPI: all other systems reviewed are Neg Past Family Social History Past Medical History COPD - O2 dependent Prior respiratory failure with intubation Pneumonia CHF (grade I diastolic dysfunction) HTN Polycystic kidney disease DVT (diagnosed March 23) anemia dyslipidemia tobacco use fibromyalgia / arthritis Hx of Goiter s/p radiation therapy with subsequent hypothyroidism DJD spine Fatty liver with cholelithiasis Diverticulosis RLS sciatica Past Surgical History Tonsillectomy Cataract surgery Tubal ligation Reported Medications Reported Meds & Active Scripts Active Medrol Dosepak (Methylprednisolone) 4 Mg Dspk 4 Mg PO DIRECTED Per Pharmacist direction Nystop Topical (Nystatin Topical) 100,000 Unit/Gm Powd 1 Applic TOPICAL Q12HR Levaquin (Levofloxacin) 250 Mg Tab 250 Mg PO DAILY@11 Reported Alendronate (Alendronate Sodium) 70 Mg Tab 70 Mg PO Q7D Mirtazapine 15 Mg Tab 15 Mg PO HS Xarelto (Rivaroxaban) 20 Mg Tab 20 Mg PO DAILY Amlodipine-Benazepril 10-20 Mg Cap 1 Cap PO DAILY Gabapentin 600 Mg Tab 600 Mg PO QID Oxycodone-Acetaminophen 10-325 mg Tab 1 Tab PO Q6H PRN Allergies: Coded Allergies: Azithromycin (Verified Allergy, Severe, STOMACH CRAMPS, 09/25/16) Penicillin (Verified Allergy, Severe, 09/25/16) Family History Mother: of pancreatic cancer Father: in MVA when patient was 4 years old Social History Quit smoking 3 years ago. Physical Exam Vital Signs Vital Signs Date Time Temp Pulse Resp B/P Pulse Ox O2 Delivery O2 Flow Rate FiO2 09/26/16 12:00 98.2 95 26 126/89 90 09/26/16 08:00 97.3 76 28 118/67 90 09/26/16 07:49 93 Nasal Cannula 4.00 09/26/16 06:23 92 Bi-Pap 35 4/7/17 06:20 92 35 09/26/16 06:00 Nasal Cannula 6.00 Humidified 09/26/16 05:58 96.8 74 20 133/74 82 09/26/16 05:45 74 09/26/16 05:00 70 16 119/58 92 Nasal Cannula 4 09/26/16 04:25 97.8 72 16 161/70 92 Nasal Cannula 4 09/26/16 03:10 69 16 142/77 93 Nasal Cannula 4 09/26/16 01:50 68 18 122/74 94 Nasal Cannula 4 09/26/16 01:45 94 Nasal Cannula 4.00 09/26/16 01:18 95 35 09/26/16 00:35 72 16 124/64 95 BiPAP 35 09/25/16 23:40 68 18 117/60 96 BiPAP 35 09/25/16 22:30 59 18 102/64 98 BiPAP 40 09/25/16 22:05 100 40 09/25/16 22:00 62 18 129/67 96 BiPAP 40 09/25/16 21:55 95 50 09/25/16 21:50 66 125/72 100 BiPAP 50 09/25/16 21:45 58 24 158/78 BiPAP 09/25/16 21:40 69 148/78 BiPAP 09/25/16 21:40 96 BiPAP 09/25/16 21:38 96 60 09/25/16 21:20 97.8 77 26 167/72 68 Physical Exam GENERAL: This is an elderly patient in no apparent distress. SKIN: No rashes, ecchymoses or lesions. Warm and dry. HEAD: Atraumatic. Normocephalic. EYES: Pupils equal round and reactive. No scleral icterus. No injection or drainage. ENT: Throat without erythema, tonsillar hypertrophy or exudate. Uvula midline. Airway patent. NECK: Trachea midline. No lymphadenopathy. No carotid bruits. CARDIOVASCULAR: Regular rate and rhythm without murmurs, gallops, or rubs. RESPIRATORY: Crackles Left lung base and diminished breath sounds over the Right lung base. GASTROINTESTINAL: Normoactive bowel sounds. Abdomen soft, non-tender, nondistended. No guarding. MUSCULOSKELETAL: No lower extremity edema bilaterally. NEUROLOGICAL: Awake and alert. Patient knows she is at [facility] in [place]. She knows the month. Five out of 5 muscle strength in bilateral arms and legs. Normal speech. Laboratory Laboratory Tests Test 09/25/16 09/25/16 09/26/16 09/26/16 21:30 22:40 05:10 06:43 White Blood Count 8.9 Red Blood Count 3.88 Hemoglobin 11.7 Hematocrit 37.0 Mean Corpuscular Volume 95.4 Mean Corpuscular Hemoglobin 30.2 Mean Corpuscular Hemoglobin 31.7 Concent Red Cell Distribution Width 15.3 Platelet Count 207 Mean Platelet Volume 8.8 Neutrophils (%) (Auto) 62.1 Lymphocytes (%) (Auto) 30.9 Monocytes (%) (Auto) 5.6 Eosinophils (%) (Auto) 0.6 Basophils (%) (Auto) 0.8 Neutrophils # (Auto) 5.5 Lymphocytes # (Auto) 2.7 Monocytes # (Auto) 0.5 Eosinophils # (Auto) 0.1 Basophils # (Auto) 0.1 CBC Comment DIFF FINAL Differential Comment Prothrombin Time 10.6 Prothromb Time International 1.0 Ratio Activated Partial 27.5 Thromboplast Time Sodium Level 142 Potassium Level 4.7 Chloride Level 99 Carbon Dioxide Level 38.5 Anion Gap 5 Blood Urea Nitrogen 19 Creatinine 1.10 Estimat Glomerular Filtration 48 Rate Random Glucose 86 Lactic Acid Level 1.1 Calcium Level 9.7 Magnesium Level 2.4 Total Bilirubin 0.3 Aspartate Amino Transf 11 (AST/SGOT) Alanine Aminotransferase 15 (ALT/SGPT) Alkaline Phosphatase 28 Total Creatine Kinase 35 Troponin I LESS THAN 0.02 B-Type Natriuretic Peptide 176 Total Protein 6.5 Albumin 3.2 Blood Gas Puncture Site RT RADIAL RT RADIAL Blood Gas Patient Temperature 98.6 98.6 Blood Gas HCO3 38 34 Blood Gas Base Excess 11.5 9.3 Blood Gas Oxygen Saturation 94 92 Arterial Blood pH 7.32 7.40 Arterial Blood Partial 76 57 Pressure CO2 Arterial Blood Partial 81 67 Pressure O2 Arterial Blood Oxygen Content 13.5 14.6 Arterial Blood 1.8 2.0 Carboxyhemoglobin Arterial Blood Methemoglobin 0.9 1.0 Blood Gas Hemoglobin 10.1 11.3 Oxygen Delivery Device NPPV VENTILATOR Blood Gas Ventilator Setting 10PS/5PEEP NPPV/PSV Blood Gas Inspired Oxygen 40 35 Urine Color YELLOW Urine Turbidity CLEAR Urine pH 6.0 Urine Specific [place] 1.012 Urine Protein NEG Urine Glucose (UA) NEG Urine Ketones NEG Urine Occult Blood NEG Urine Nitrite NEG Urine Bilirubin NEG Urine Leukocyte Esterase NEG Urine RBC 0-2 Urine WBC 0-2 Urine Squamous Epithelial > 8 Cells Urine Bacteria NONE Microscopic Urinalysis Comment CULT NOT INDICATED Date/Time Procedure Status Source Growth 09/25/16 21:50 Aerobic Blood Culture Received Blood Peripheral Pending 09/25/16 21:50 Anaerobic Blood Culture Received Blood Peripheral Pending 09/25/16 21:30 Aerobic Blood Culture - Preliminary Resulted Blood Peripheral NO GROWTH IN 1 DAY 09/25/16 21:30 Anaerobic Blood Culture - Preliminary Resulted Blood Peripheral NO GROWTH IN 1 DAY Result Diagram: 09/25/16212909/25/162129 Imaging Last Impressions Chest X-Ray 09/25/162134 Signed Impressions: Service Date/Time: September 21:53 - CONCLUSION: Stable bibasilar opacities worse on the right. 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 Anuradha Anthony MD Assessment and Plan Assessment and Plan 76-year-old female with: COPD exacerbation/hypercapnic respiratory failure: ABG personally reviewed, acidotic with PCO2 of 76 improved to 57 this morning. Chest x-ray personally interpreted with bibasilar opacities worse on the right, appears stable compared to prior exam. VQ scan on last admission without PE. Patient initially required BiPAP but now is on nasal cannula. She received 1 dose of doxycycline and aztreonam in ED. -DuoNeb every 4 hours scheduled and albuterol every 2 hours as needed -Solumedrol 60 mg every 8 hours -Symbicort every 12 hours -RT to follow, oxygen -Pulmonology consult, Dr. Cummings Lightheadedness: Patient is likely lightheaded due to shortness of breath, possibly orthostatic. 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 Prior head CT on 09/10/16 similarly shows old encephalomalacia in the right posterior frontal lobe. -Carotid ultrasound performed on 09/10 showed no flow limiting carotid stenosis. -Echo 08/25/15 shows EF of 55-60% -Orthostatics -Monitor clinically BILL: Creatinine only mildly elevated at 1.10. -Repeat am BMP -Avoid IV hydration if possible Chronic pain: Continue home medication, gabapentin only tid. HTN: Continue amlodipine-benazepril. Monitor renal function. DVT prophylaxis: On Xarelto as she had previous DVT. Written by Liv Cerda PA-C acting as scribe for Dr. Tucker on 09/26/16 at 1610. All or portions of this note were transcribed by scribe [Liv Cerda]. I, Dr. Guillermo Tucker personally performed the history, physical exam, and medical decision making; and confirmed the accuracy of the information in the transcribed note. Authenticated by Dr. Guillermo Tucker on 09/26/16 at 23:42. Physician Certification 2 Midnight Certification Type: Admission for Inpatient Services Order for Inpatient Services The services are ordered in accordance with Medicare regulations or non- Medicare payer requirements, as applicable. In the case of services not specified as inpatient-only, they are appropriately provided as inpatient services in accordance with the 2-midnight benchmark. Estimated LOS (days): 2 days is the estimated time the patient will need to remain in the hospital, assuming treatment plan goals are met and no additional complications. Post-Hospital Plan: Not yet determined Notes: [facility] versus SNF Liv Cerda Sep 26, 2016 16:34 Guillermo Tucker MD Sep 26, 2016 23:42
[2016-09-26] MEDS: GABAPENTIN 300 MG CAP PO SCH (17:19)
[2016-09-26] MEDS: MIRTAZAPINE 15 MG TAB PO SCH (20:28)
--- NOTE | 2016-09-26 21:25 | MB ---
cc: WAYNE JONES DATE OF CONSULTATION 09/26/[address] Tucker REASON FOR CONSULTATION Chronic obstructive pulmonary disease exacerbation and shortness of breath. HISTORY OF PRESENT ILLNESS Ms. Diaz is a pleasant 76-year-old female who is known to me from the office. She was recently admitted in this hospital. She has history of COPD. She had several DVTs. The patient was feeling very weak and she fell a couple of time at home. No loss of consciousness. She sometimes feels weak, anxious and tremors. She is not sure if the breathing treatment makes her worse. She has no cough or sputum production. No fever or chills. No night sweats. She was brought to the emergency room. She had a workup done. Her chest x-ray shows stable basal infiltrate. Her CBC showed WBC count 8.9. Hemoglobin 11.7, hematocrit 37, MCV 95, platelet count 207. Blood gas - initial one pH 7.32, pCO2 76, pO2 81. She was put on BiPap. Repeat blood gas - pH 7.40, pCO2 of 57, pO2 67, bicarb 34. Sodium 142, potassium 4.7, chloride 99, CO2 38, BUN 19, creatinine 1.0. PAST MEDICAL HISTORY 1. History of COPD. She is oxygen-dependent. 2. Deep venous thrombosis 3. Hypertension, 4. Congestive heart failure, 5. History of polycystic kidney disease. 6. Chronic pain MEDICATIONS Currently taking 1. Xarelto 20 mg a day, 2. Amlodipine 10 mg a day 3. Lisinopril 20 mg a day, 4. Remeron 15 mg a day, 5. Neurontin 600 mg three times a day, 6. oxycodone 1 tablet q.6 h 7. Symbicort 160/4.5 two puffs twice a day. 8. Solu-Medrol 60 mg q. 8-hour 9. Albuterol/Atrovent nebulizer treatment. ALLERGIES AZITHROMYCIN PENICILLIN SOCIAL HISTORY She has history of smoking in the past, no alcohol abuse. FAMILY HISTORY Noncontributory. She lives with her son. REVIEW OF SYSTEMS She has been feeling weak and tired, appetite is fair. No nausea or vomiting. No seizure, stroke or epilepsy. Has history of DVT. PHYSICAL EXAMINATION GENERAL: An elderly female, anxious with mild shortness of breath, not in acute distress. VITAL SIGNS: Blood pressure 126/89, heart rate 95, respirations 20, temperature 98.2 HEENT: Unremarkable NECK: Supple. JVP not raised. CHEST: Equal Breath sounds, has expiratory rhonchi. CARDIOVASCULAR: S1, S2 normal. ABDOMEN: Benign. IMPRESSION 1. Hypercapnic respiratory failure, improving. 2. COPD 3. History of deep venous thrombosis 4. Recent falls. Her CT scan of the head is negative. 5. History of polycystic kidney 6. Mild renal insufficiency PLAN We will give her aerosol treatment with albuterol and Atrovent. If she has any tremors related to the breathing treatment, we will make treatment only p.r.n. Continue Symbicort, IV Solu-Medrol, supplement oxygen to keep the saturation greater than 90% and use BiPap only as needed. Further treatment will depend on the course in the hospital. Thank you, Dr. Tucker, for this consultation. MD LEENA Uribe/ /5:20 PM /9:13 PM MTDErnst
[2016-09-27] VITALS (10 sets, daily range): BP systolic 105–165; BP diastolic 56–90; PULSE 63–94; RESP 18–22; TEMP 97–98.8; O2SAT 90–97
[2016-09-27] MEDS: RESP: ALBUTEROL 2.5 MG/IPRATROPIUM 0.5 MG NEB (SCH) NEB ×6 (03:46→23:13)
[2016-09-27] MEDS: methylPREDNISolone SOD SUCC 125 MG/2 ML VIAL IV PUSH SCH ×3 (04:24→20:30)
[2016-09-27 08:16] LABS: POTASSIUM 5.1 MEQ/L (3.5-5.1)
[2016-09-27 08:22] LABS: BICARBONATE 36.7 MEQ/L (21.0-32.0)
[2016-09-27] MEDS: oxyCODONE/ACETAMINOPHEN 10 MG/325 MG TAB PO PRN ×2 (09:59→22:46)
[2016-09-27] MEDS: GABAPENTIN 300 MG CAP PO SCH ×2 (09:59→20:30)
[2016-09-27] MEDS: RIVAROXABAN 20 MG TAB PO SCH (10:00)
[2016-09-27] MEDS: LISINOPRIL 20 MG TAB PO SCH (10:00)
[2016-09-27] MEDS: SODIUM CHLORIDE 0.9% FLUSH 10 ML FLUSH IV FLUSH SCH ×2 (10:01→20:31)
[2016-09-27] MEDS: BUDESONIDE-FORMOTEROL 160/4.5 MCG INHALER INH SCH ×2 (10:03→20:30)
--- NOTE | 2016-09-27 15:10 | HHI.PR ---
Subjective Remarks Patient seen this morning around 11:45 AM. She says she was breath is gallbladder. No chest pain. She does not feel like she will be able to go home. Objective Vital Signs Date Time Temp Pulse Resp B/P Pulse Ox O2 Delivery O2 Flow Rate FiO2 09/27/16 12:00 98.2 78 22 125/75 90 09/27/16 10:59 18 09/27/16 08:00 94 154/85 09/27/16 08:00 92 109/73 09/27/16 08:00 Nasal Cannula 4.00 35 09/27/16 08:00 97.2 81 21 165/90 90 09/27/16 07:51 90 Nasal Cannula 4.00 09/27/16 04:47 90 Nasal Cannula 4.00 09/27/16 04:00 97.0 81 18 156/83 90 09/27/16 00:30 97 Nasal Cannula 4.00 09/27/16 00:00 97.7 79 20 158/78 97 09/26/16 21:38 83 09/26/16 21:00 Nasal Cannula 4.00 09/26/16 20:00 97.1 82 22 165/82 91 09/26/16 19:53 90 Nasal Cannula 4.00 09/26/16 17:39 Blow By 4.00 09/26/16 16:00 97.9 90 24 152/90 90 157/81 145/83 I/O 09/26/16 09/26/16 09/26/16 09/27/16 09/27/16 09/27/16 07:00 15:00 23:00 07:00 15:00 23:00 Intake Total 740 ml 680 ml 200 ml Output Total 400 ml Balance 340 ml 680 ml 200 ml Intake Oral 490 ml 680 ml 200 ml IV Total 250 ml Output Urine Total 400 ml # Voids 2 4 2 3 # Bowel Movements 0 0 1 Result Diagram: 09/25/16 2130 09/27/16 0655 Objective Remarks GENERAL: Incision sitting up in chair. Appears comfortable. Alert and oriented 3. Daughter at bedside. SKIN: Warm and dry. HEAD: Normocephalic. EYES: No scleral icterus. No injection or drainage. NECK: Supple, trachea midline. No JVD. CARDIOVASCULAR: Regular rate and rhythm without murmurs, gallops, or rubs. RESPIRATORY: Breath sounds equal bilaterally. No accessory muscle use. GASTROINTESTINAL: Abdomen soft, non-tender, nondistended. MUSCULOSKELETAL: No cyanosis, or edema. BACK: Nontender without obvious deformity. No CVA tenderness. A/P Assessment and Plan 76-year-old female with: //COPD exacerbation/hypercapnic respiratory failure: ABG personally reviewed, acidotic with PCO2 of 76 improved to 57 this morning. Chest x-ray personally interpreted with bibasilar opacities worse on the right, appears stable compared to prior exam. VQ scan on last admission without PE. Patient initially required BiPAP but now is on nasal cannula. She received 1 dose of doxycycline and aztreonam in ED. -DuoNeb every 4 hours scheduled and albuterol every 2 hours as needed -Solumedrol 60 mg every 8 hours -Symbicort every 12 hours -RT to follow, oxygen -Respiratory status improving. Appreciate pulmonology assistance. //Polypharmacy, issues with medication management Patient will likely need to go to SNF, however if she does go home she will need home health nurse for medication management. //Lightheadedness: Patient is likely lightheaded due to shortness of breath, possibly orthostatic. 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 Prior head CT on 09/10/16 similarly shows old encephalomalacia in the right posterior frontal lobe. -Carotid ultrasound performed on 09/10 showed no flow limiting carotid stenosis. -Echo 08/25/15 shows EF of 55-60% -Orthostatics -Improved. Continue to monitor. //BILL: Creatinine only mildly elevated at 1.10. -Repeat am BMP -Avoid IV hydration if possible //Dehydration. Increased BUN. Encourage fluids. //Chronic pain: Continue home medication, gabapentin only bid //HTN: Continue amlodipine-benazepril. Monitor renal function. //DVT prophylaxis: On Xarelto as she had previous DVT. Discharge Planning Likely discharge to SNF with next 1-2 days. Appreciate case management assistance. Guillermo Tucker MD Sep 27, 2016 15:10
[2016-09-27] MEDS: MIRTAZAPINE 15 MG TAB PO SCH (20:30)
[2016-09-28] VITALS (9 sets, daily range): BP systolic 121–150; BP diastolic 74–91; PULSE 67–95; RESP 16–20; TEMP 97.4–98.7; O2SAT 92–99
[2016-09-28] MEDS: RESP: ALBUTEROL 2.5 MG/IPRATROPIUM 0.5 MG NEB (SCH) NEB ×6 (03:21→23:19)
[2016-09-28] MEDS: methylPREDNISolone SOD SUCC 125 MG/2 ML VIAL IV PUSH SCH ×2 (04:33→12:21)
[2016-09-28 08:05] LABS: POTASSIUM 4.6 MEQ/L (3.5-5.1)
[2016-09-28 08:09] LABS: AUTOMATED NEUTROPHIL # 9.4 TH/MM3 (1.8-7.7); BASOPHIL % 0.1 % (0.0-2.0); HEMATOCRIT 35.6 % (35.0-46.0); HEMO FLAGS DIFF FINAL; LYMPH % 2.6 % (9.0-44.0); LYMPHOCYTE # 0.3 TH/MM3 (1.0-4.8); MEAN CELL VOLUME 93.2 FL (80.0-100.0); MEAN CORPUSCULAR HEMOGLOBIN 29.4 PG (27.0-34.0); MEAN CORPUSCULAR HGB CONC 31.5 % (32.0-36.0); MONO % 1.6 % (0.0-8.0); NEUT % 95.7 % (16.0-70.0); PLATELET COUNT 209 TH/MM3 (150-450); RED BLOOD COUNT 3.82 MIL/MM3 (4.00-5.30); RED CELL DISTRIBUTION WIDTH 15.1 % (11.6-17.2); WHITE BLOOD COUNT 9.9 TH/MM3 (4.0-11.0)
[2016-09-28 08:15] LABS: BICARBONATE 35.2 MEQ/L (21.0-32.0); MAGNESIUM 2.3 MG/DL (1.5-2.5)
[2016-09-28] MEDS: BUDESONIDE-FORMOTEROL 160/4.5 MCG INHALER INH SCH ×2 (09:06→20:44)
[2016-09-28] MEDS: GABAPENTIN 300 MG CAP PO SCH ×2 (09:07→20:44)
[2016-09-28] MEDS: SODIUM CHLORIDE 0.9% FLUSH 10 ML FLUSH IV FLUSH SCH ×2 (09:08→20:43)
[2016-09-28] MEDS: LISINOPRIL 20 MG TAB PO SCH (09:08)
[2016-09-28] MEDS: RIVAROXABAN 20 MG TAB PO SCH (09:08)
[2016-09-28] MEDS: oxyCODONE/ACETAMINOPHEN 10 MG/325 MG TAB PO PRN ×2 (12:23→17:09)
--- NOTE | 2016-09-28 20:11 | HHI.PR ---
Subjective Remarks 76 YOWF with COPD exac, sob Feels better less sob Wheezing improved has cough, clear sp Objective Vital Signs Vital Signs Date Time Temp Pulse Resp B/P Pulse Ox O2 Delivery O2 Flow Rate FiO2 09/28/16 19:48 94 Nasal Cannula 4.50 09/28/16 18:09 18 09/28/16 16:00 98.0 80 18 138/80 99 09/28/16 12:00 98.0 95 18 140/82 98 09/28/16 11:33 94 Nasal Cannula 4.50 09/28/16 08:05 92 Nasal Cannula 4.50 09/28/16 08:00 Nasal Cannula 4.00 Humidified 09/28/16 08:00 97.4 72 16 128/77 95 142/91 143/77 09/28/16 06:00 67 09/28/16 00:07 98.7 92 20 121/74 94 I/O 09/27/16 09/27/16 09/27/16 09/28/16 09/28/16 09/28/16 07:00 15:00 23:00 07:00 15:00 23:00 Intake Total 1000 ml 240 ml 320 ml Output Total 300 ml Balance 1000 ml 240 ml 20 ml Intake Oral 1000 ml 240 ml 320 ml Output Urine Total 300 ml # Voids 3 5 1 # Bowel Movements 0 Result Diagram: 09/28/16 0710 09/28/16 0710 Objective Remarks GENERAL: MBMN WF, mild sob SKIN: Warm and dry. HEAD: Normocephalic. EYES: No scleral icterus. No injection or drainage. NECK: Supple, trachea midline. No JVD or lymphadenopathy. CARDIOVASCULAR: Regular rate and rhythm without murmurs, gallops, or rubs. RESPIRATORY: Breath sounds equal bilaterally. No accessory muscle use. End exp rhonchi GASTROINTESTINAL: Abdomen soft, non-tender, nondistended. MUSCULOSKELETAL: No cyanosis, or edema. BACK: Nontender without obvious deformity. No CVA tenderness. A/P Assessment and Plan Hypercapnic RF improved COPD H/O DVT Renal insuff PLAN: Cont steroids Aerosol nebs cont Abx Ambulate with assistance Arvind Cummings MD Sep 28, 2016 20:11
[2016-09-28] MEDS: methylPREDNISolone SOD SUCC 40 MG/1 ML VIAL IV SCH (20:43)
[2016-09-28] MEDS: MIRTAZAPINE 15 MG TAB PO SCH (20:44)
--- NOTE | 2016-09-28 23:05 | HHI.PR ---
Subjective Remarks patient seen today around noon. She says she overall is feeling better. Shortness of breath is better. She reports worsened chronic right lower extremity radiculopathy. Requesting pain medication. Objective Vital Signs Date Time Temp Pulse Resp B/P Pulse Ox O2 Delivery O2 Flow Rate FiO2 09/28/16 20:00 96 Nasal Cannula 4.50 09/28/16 20:00 97.9 78 16 150/77 96 09/28/16 19:48 94 Nasal Cannula 4.50 09/28/16 18:09 18 09/28/16 16:00 98.0 80 18 138/80 99 09/28/16 12:00 98.0 95 18 140/82 98 09/28/16 11:33 94 Nasal Cannula 4.50 09/28/16 08:05 92 Nasal Cannula 4.50 09/28/16 08:00 Nasal Cannula 4.00 Humidified 09/28/16 08:00 97.4 72 16 128/77 95 142/91 143/77 09/28/16 06:00 67 09/28/16 00:07 98.7 92 20 121/74 94 I/O 09/27/16 09/27/16 09/27/16 09/28/16 09/28/16 09/28/16 07:00 15:00 23:00 07:00 15:00 23:00 Intake Total 1000 ml 240 ml 560 ml Output Total 300 ml Balance 1000 ml 240 ml 260 ml Intake Oral 1000 ml 240 ml 560 ml Output Urine Total 300 ml # Voids 3 5 1 3 # Bowel Movements 0 1 Result Diagram: 09/28/16 0710 09/28/16 0710 Objective Remarks GENERAL: patient sitting up in bed. Appears comfortable. Alert and oriented 3. SKIN: Warm and dry. HEAD: Normocephalic. EYES: No scleral icterus. No injection or drainage. NECK: Supple, trachea midline. No JVD. CARDIOVASCULAR: Regular rate and rhythm without murmurs, gallops, or rubs. RESPIRATORY: Breath sounds equal bilaterally. No accessory muscle use. GASTROINTESTINAL: Abdomen soft, non-tender, nondistended. MUSCULOSKELETAL: No cyanosis, or edema. BACK: Nontender without obvious deformity. No CVA tenderness. A/P Assessment and Plan 76-year-old female with: //COPD exacerbation/hypercapnic respiratory failure: ABG personally reviewed, acidotic with PCO2 of 76 improved to 57 this morning. Chest x-ray personally interpreted with bibasilar opacities worse on the right, appears stable compared to prior exam. VQ scan on last admission without PE. Patient initially required BiPAP but now is on nasal cannula. She received 1 dose of doxycycline and aztreonam in ED. -DuoNeb every 4 hours scheduled and albuterol every 2 hours as needed -Solumedrol 60 mg every 8 hours -Symbicort every 12 hours -RT to follow, oxygen -Respiratory status improving. Appreciate pulmonology assistance. =Taper steroids. //Polypharmacy, issues with medication management Patient will likely need to go to SNF, however if she does go home she will need home health nurse for medication management. //Lightheadedness: Patient is likely lightheaded due to shortness of breath, possibly orthostatic. 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 Prior head CT on 09/10/16 similarly shows old encephalomalacia in the right posterior frontal lobe. -Carotid ultrasound performed on 09/10 showed no flow limiting carotid stenosis. -Echo 08/25/15 shows EF of 55-60% -Orthostatics -Improved. Continue to monitor. //BILL: Creatinine only mildly elevated at 1.10. -stable creatinine. -Avoid IV hydration if possible //Dehydration. Increased BUN. Encourage fluids. //Chronic pain: Continue home medication, gabapentin only bid. Try to minimize narcotics. //HTN: Continue amlodipine-benazepril. Monitor renal function. //DVT prophylaxis: On Xarelto as she had previous DVT. Discharge Planning Likely discharge to SNF tomorrow on prednisone taper. Appreciate case management assistance. Guillermo Tucker MD Sep 28, 2016 23:05
[2016-09-29] VITALS: BP 140/78; PULSE 80; RESP 18; TEMP 97.6; O2SAT 96
[2016-09-29] MEDS: oxyCODONE/ACETAMINOPHEN 10 MG/325 MG TAB PO PRN ×3 (01:56→13:17)
[2016-09-29 04:00] VITALS: BP 142/69; PULSE 71; RESP 16; TEMP 97.4; O2SAT 96
[2016-09-29] MEDS: RESP: ALBUTEROL 2.5 MG/IPRATROPIUM 0.5 MG NEB (SCH) NEB ×4 (04:08→15:41)
[2016-09-29 05:53] LABS: POTASSIUM 5.2 MEQ/L (3.5-5.1)
[2016-09-29 06:00] LABS: BICARBONATE 35.8 MEQ/L (21.0-32.0)
[2016-09-29 06:04] LABS: AUTOMATED NEUTROPHIL # 7.9 TH/MM3 (1.8-7.7); BASOPHIL % 0.1 % (0.0-2.0); HEMATOCRIT 36.7 % (35.0-46.0); HEMO FLAGS DIFF FINAL; LYMPH % 5.4 % (9.0-44.0); LYMPHOCYTE # 0.5 TH/MM3 (1.0-4.8); MEAN CELL VOLUME 93.4 FL (80.0-100.0); MEAN CORPUSCULAR HEMOGLOBIN 29.3 PG (27.0-34.0); MEAN CORPUSCULAR HGB CONC 31.4 % (32.0-36.0); NEUT % 90.5 % (16.0-70.0); PLATELET COUNT 206 TH/MM3 (150-450); RED BLOOD COUNT 3.93 MIL/MM3 (4.00-5.30); RED CELL DISTRIBUTION WIDTH 14.9 % (11.6-17.2); WHITE BLOOD COUNT 8.7 TH/MM3 (4.0-11.0)
[2016-09-29 07:32] VITALS: O2SAT 92
[2016-09-29 08:00] VITALS: BP 135/74; PULSE 72; RESP 20; TEMP 98; O2SAT 94
[2016-09-29] MEDS: BUDESONIDE-FORMOTEROL 160/4.5 MCG INHALER INH SCH (08:37)
[2016-09-29] MEDS: RIVAROXABAN 20 MG TAB PO SCH (08:37)
[2016-09-29] MEDS: methylPREDNISolone SOD SUCC 40 MG/1 ML VIAL IV SCH (08:38)
[2016-09-29] MEDS: GABAPENTIN 300 MG CAP PO SCH (08:39)
[2016-09-29] MEDS: LISINOPRIL 20 MG TAB PO SCH (08:39)
[2016-09-29] MEDS: SODIUM CHLORIDE 0.9% FLUSH 10 ML FLUSH IV FLUSH SCH (08:40)
[2016-09-29 09:37] VITALS: RESP 20
[2016-09-29] MEDS ORDERED: IPRASOL NEB (09:59)
[2016-09-29] MEDS ORDERED: PRED10 PO (09:59)
[2016-09-29] MEDS ORDERED: ALBU1.25 NEB (09:59)
[2016-09-29] MEDS ORDERED: GABA600T PO (09:59)
[2016-09-29] MEDS ORDERED: SYMB160A INH (09:59)
[2016-09-29] MEDS ORDERED: OXYC1TAB36 PO (09:59)
[2016-09-29] MEDS ORDERED: SODIUM POLYSTYRENE SULFONATE SUSP 15 GM/60 ML CUP PO ONE (10:00)
--- NOTE | 2016-09-29 14:19 | HHI.PR ---
Subjective Remarks Patient seen this morning around 9 AM. Says she is feeling well. Denies any chest pain. Reports shortness of breath is back to baseline. 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 Positive bowel movement. Objective Vital Signs Date Time Temp Pulse Resp B/P Pulse Ox O2 Delivery O2 Flow Rate FiO2 09/29/16 09:37 20 09/29/16 08:00 Nasal Cannula 4.00 09/29/16 08:00 72 09/29/16 08:00 98.0 72 20 135/74 94 09/29/16 07:32 92 Nasal Cannula 4.00 09/29/16 04:00 97.4 71 16 142/69 96 09/29/16 00:00 97.6 80 18 140/78 96 09/28/16 20:00 71 09/28/16 20:00 96 Nasal Cannula 4.50 09/28/16 20:00 97.9 78 16 150/77 96 09/28/16 19:48 94 Nasal Cannula 4.50 09/28/16 16:00 98.0 80 18 138/80 99 I/O 09/28/16 09/28/16 09/28/16 09/29/16 09/29/16 09/29/16 07:00 15:00 23:00 07:00 15:00 23:00 Intake Total 240 ml 560 ml 240 ml Output Total 300 ml 300 ml Balance 240 ml 260 ml -60 ml Intake Oral 240 ml 560 ml 240 ml Output Urine Total 300 ml 300 ml # Voids 3 2 # Bowel Movements 1 0 Result Diagram: 09/29/1622 09/29/16521 Objective Remarks GENERAL: patient sitting up in bed. Appears comfortable. Alert and oriented 3. SKIN: Warm and dry. HEAD: Normocephalic. EYES: No scleral icterus. No injection or drainage. NECK: Supple, trachea midline. No JVD. CARDIOVASCULAR: Regular rate and rhythm without murmurs, gallops, or rubs. RESPIRATORY: Breath sounds equal bilaterally. No accessory muscle use. Lungs are clear today. GASTROINTESTINAL: Abdomen soft, non-tender, nondistended. MUSCULOSKELETAL: No cyanosis, or edema. BACK: Nontender without obvious deformity. No CVA tenderness. A/P Assessment and Plan 76-year-old female with: //COPD exacerbation/hypercapnic respiratory failure: ABG personally reviewed, acidotic with PCO2 of 76 improved to 57 this morning. Chest x-ray personally interpreted with bibasilar opacities worse on the right, appears stable compared to prior exam. VQ scan on last admission without PE. Patient initially required BiPAP but now is on nasal cannula. She received 1 dose of doxycycline and aztreonam in ED. -DuoNeb every 4 hours scheduled and albuterol every 2 hours as needed -Solumedrol 60 mg every 8 hours -Symbicort every 12 hours -RT to follow, oxygen -Respiratory status improving. Appreciate pulmonology assistance. = Discharge to SNF on duo nebs, steroid taper, oxygen. Follow-up pulmonology. //Polypharmacy, issues with medication management Patient will likely need to go to SNF, however if she does go home she will need home health nurse for medication management. -Discharge on lower dose of gabapentin. //Lightheadedness: Patient is likely lightheaded due to shortness of breath, possibly orthostatic. 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 Prior head CT on 09/10/16 similarly shows old encephalomalacia in the right posterior frontal lobe. -Carotid ultrasound performed on 09/10 showed no flow limiting carotid stenosis. -Echo 08/25/15 shows EF of 55-60% -Orthostatics -Improved. Likely from polypharmacy. Avoid oversedation in setting of COPD.. //BILL: Creatinine only mildly elevated at 1.10. -Likely trend up to 1.2. -Avoid IV hydration if possible //Hyperkalemia. Fasting 5.2 on 09/29. Kayexalate given. Patient will need follow-up BMP at SNF. //Dehydration. Increased BUN. Encourage by mouth fluids. //Chronic pain: Continue home medication, gabapentin only bid. Try to minimize narcotics. //HTN: Continue amlodipine-benazepril. Monitor renal function. //DVT prophylaxis: On Xarelto as she had previous DVT. Discharge Planning Discharge to SNF on Levaquin to complete treatment course, duo nebs, prednisone taper. Follow-up pulmonology. Guillermo Tucker MD Sep 29, 2016 14:19
--- NOTE | 2016-09-29 14:32 | HHI.DS ---
Discharge Summary Admission Date Sep 26, 2016 at 00:03 Discharge Date: Sep 29, 2016 Admitting Diagnosis exacerbation COPD (1) Chronic obstructive pulmonary disease with acute exacerbation ICD Code: J44.1 Diagnosis: Principal (2) Hypercapnic respiratory failure, chronic ICD Code: J96.12 Diagnosis: Principal (3) Lightheadedness ICD Code: R42 Diagnosis: Principal (4) Acute kidney injury ICD Code: N17.9 Diagnosis: Principal Procedures No invasive procedures. Brief History - From Admission 76 year-old female with history of COPD with chronic respiratory failure, DVT, CHF, hyperlipidemia, hypertension, thyroid disease, arthritis, RLS , and sciatica presents with complaint of worsening shortness of breath and "shakes and jitters". The patient was recently admitted on September 10- for COPD exacerbation, chest pain, hypernatremia, hyperkalemia, BILL, UTI, altered mental status. She was discharged home. Patient states she went home and "couldn't breathe". States she did follow up with her primary care physician the Thursday after she was discharged and no medication changes were made. The patient states she was "screwed up" on her Medrol and was not sure what to take. She states she has ongoing difficulty breathing but it was becoming worse. She states she has had shakes and jitters which are worse since last time she was admitted but states she has had "jerks" for the past 2 months. Her granddaughter is at bedside and states she has not been doing well since she went home and was falling. The patient states she has been lightheaded since that time. Patient states yesterday she walked to the bathroom became lightheaded and hit her head on the wall. She states she gets lightheaded when going from the bed to the chair. She currently admits to a frontal and occipital sharp headache 12/29 which just started. She admits to generalized weakness than states is worse on right but this has been ongoing for a couple of years. Admits to some blurry vision but her granddaughter states she's post wearing glasses. Admits to always being chilly. She denies any sore throat or cough. Denies any chest pain. Denies any nausea or vomiting. She has not had a bowel movement in 3 days but denies feeling constipated. Patient additionally states she has been trying to slow down on her gabapentin and pain medication. She is now taking gabapentin 3 times a day instead of 4. She states the last couple nights she has woken up not knowing where she was. CBC/BMP: 09/29/16 0522 09/29/16 0522 Significant Findings Laboratory Tests Test 09/27/16 09/28/16 09/29/16 06:55 07:10 05:22 Carbon Dioxide Level 36.7 MEQ/L 35.2 MEQ/L 35.8 MEQ/L (21.0-32.0) (21.0-32.0) (21.0-32.0) Anion Gap 4 MEQ/L (5-15) Blood Urea Nitrogen 31 MG/DL (7-18) 31 MG/DL (7-18) 33 MG/DL (7-18) Creatinine 1.10 MG/DL 1.10 MG/DL 1.20 MG/DL (0.50-1.00) (0.50-1.00) (0.50-1.00) Estimat Glomerular Filtration 48 ML/MIN (>89) 48 ML/MIN (>89) 44 ML/MIN (>89) Rate Random Glucose 134 MG/DL 131 MG/DL 133 MG/DL (74-106) (74-106) (74-106) Red Blood Count 3.82 MIL/MM3 3.93 MIL/MM3 (4.00-5.30) (4.00-5.30) Hemoglobin 11.2 GM/DL 11.5 GM/DL (11.6-15.3) (11.6-15.3) Mean Corpuscular Hemoglobin 31.5 % 31.4 % Concent (32.0-36.0) (32.0-36.0) Neutrophils (%) (Auto) 95.7 % 90.5 % (16.0-70.0) (16.0-70.0) Lymphocytes (%) (Auto) 2.6 % 5.4 % (9.0-44.0) (9.0-44.0) Neutrophils # (Auto) 9.4 TH/MM3 7.9 TH/MM3 (1.8-7.7) (1.8-7.7) Lymphocytes # (Auto) 0.3 TH/MM3 0.5 TH/MM3 (1.0-4.8) (1.0-4.8) Albumin 2.7 GM/DL (3.4-5.0) Potassium Level 5.2 MEQ/L (3.5-5.1) Imaging Last Impressions Chest X-Ray 09/25/165 Signed Impressions: Service Date/Time: September 21:53 - CONCLUSION: Stable bibasilar opacities worse on the right. Anuradha Anthony MD Head CT 09/25/16 0000 Signed Impressions: Service Date/Time: , September 25, 2016 23:08 - CONCLUSION: Old infarction on the right. Anuradha Anthony MD Hospital Course Chest x-ray with bibasilar opacities on the right. Patient was treated for COPD exacerbation with IV steroids, broad-spectrum antibiotics, duo nebs. BNP slightly elevated at 176. IV fluids were given. Patient also found to have polypharmacy with multiple sedating medications, likely adding to lightheadedness. Gabapentin dosage was decreased with improvement in lightheadedness.. Patient's shortness of breath, lightheadedness improved, and she was discharged to SNF. Will be on prednisone taper, duo nebs. Was provided with ongoing oxycodone prescription for her chronic neuropathic pain. Recommend tapering off this in the future. She did have hyperkalemia, with potassium 5.2 on day of discharge. She was given 1 dose of Kayexalate. Receiving facility will need to follow-up on potassium level tomorrow. For problem-based summary for most recent progress note, please see below. 76-year-old female with: //COPD exacerbation/hypercapnic respiratory failure: ABG personally reviewed, acidotic with PCO2 of 76 improved to 57 this morning. Chest x-ray personally interpreted with bibasilar opacities worse on the right, appears stable compared to prior exam. VQ scan on last admission without PE. Patient initially required BiPAP but now is on nasal cannula. She received 1 dose of doxycycline and aztreonam in ED. -DuoNeb every 4 hours scheduled and albuterol every 2 hours as needed -Solumedrol 60 mg every 8 hours -Symbicort every 12 hours -RT to follow, oxygen -Respiratory status improving. Appreciate pulmonology assistance. = Discharge to SNF on duo nebs, steroid taper, oxygen. Follow-up pulmonology. //Polypharmacy, issues with medication management Patient will likely need to go to SNF, however if she does go home she will need home health nurse for medication management. -Discharge on lower dose of gabapentin. //Lightheadedness: Patient is likely lightheaded due to shortness of breath, possibly orthostatic. 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 Prior head CT on 09/10/16 similarly shows old encephalomalacia in the right posterior frontal lobe. -Carotid ultrasound performed on 09/10 showed no flow limiting carotid stenosis. -Echo 08/25/15 shows EF of 55-60% -Orthostatics -Improved. Likely from polypharmacy. Avoid oversedation in setting of COPD.. //BILL: Creatinine only mildly elevated at 1.10. -Likely trend up to 1.2. -Avoid IV hydration if possible //Hyperkalemia. Fasting 5.2 on 09/29. Kayexalate given. Patient will need follow-up BMP at SNF. //Dehydration. Increased BUN. Encourage by mouth fluids. //Chronic pain: Continue home medication, gabapentin only bid. Try to minimize narcotics. //HTN: Continue amlodipine-benazepril. Monitor renal function. //DVT prophylaxis: On Xarelto as she had previous DVT. Discharge Planning Discharge to SNF on Levaquin to complete treatment course, duo nebs, prednisone taper. Follow-up pulmonology. Pt Condition on Discharge: Good Discharge Disposition: Discharge to SNF Discharge Time: > 30 minutes Discharge Instructions DIET: Follow Instructions for: Heart Healthy Diet Activities you can perform: Regular-No Restrictions Follow up Referrals: Pulmonology - 1 Week with Arvind Cummings MD New Medications: Prednisone (Prednisone) 10 Mg Tab 10 MG PO DAILY Take 40mg daily for 3 days; 20mg daily for 3 days; 10mg daily for 3 days, then stop. COPD #21 Ref 0 TAB Albuterol Neb (Albuterol Neb) 1.25 Mg/3 Ml Neb 1.25 MG NEB Q2HR NEB PRN SHORTNESS OF BREATH Days 30 NEBULE Budesonide-Formoterol Inh (Symbicort Inh) 160-4.5 Mcg/Act Aero 2 PUFF INH Q12HR COPD Days 30 INHALER Ipratropium-Albuterol Neb (Duoneb) 0.5-2.5 Mg/3 Ml Neb 1 AMPULE NEB Q4HR NEB COPD Days 30 ML Changed Medications: Gabapentin (Gabapentin) 600 Mg Tab 600 MG PO BID neuropathy #60 Ref 0 TAB (Changed from: QID) Continued Medications: Alendronate (Alendronate) 70 Mg Tab 70 MG PO Q7D Osteporosis Treatment #4 Ref 0 TAB Amlodipine-Benazepril (Amlodipine-Benazepril) 10-20 Mg Cap 1 CAP PO DAILY Blood Pressure Management #30 Ref 0 CAP Levofloxacin (Levaquin) 250 Mg Tab 250 MG PO DAILY@11 UTI #4 TAB Mirtazapine (Mirtazapine) 15 Mg Tab 15 MG PO HS Depression Control #30 Ref 0 TAB Nystatin Topical (Nystop Topical) 100,000 Unit/Gm Powd 1 APPLIC TOPICAL Q12HR Rash #30 GM Oxycodone-Acetaminophen (Oxycodone-Acetaminophen) 10-325 mg Tab 1 TAB PO Q6H PRN PAIN #20 Ref 0 TAB (This prescription has been renewed) Rivaroxaban (Xarelto) 20 Mg Tab 20 MG PO DAILY Blood Clot Prevention Ref 0 TAB Discontinued Medications: Methylprednisolone Dosepak (Medrol Dosepak) 4 Mg Dspk 4 MG PO DIRECTED Per Pharmacist direction #1 Ref 0 DSPK Guillermo Tucker MD Sep 29, 2016 14:32
[2016-11-12] MEDS ORDERED: MILKSUS PO (22:37)
== END 2016-09-29 16:00 | disposition home or self-care (01) | DRG 191 ==
LOC: PHED 21:10 → PHEDA 09-26 00:03 → PHEDH 09-26 04:03 → PH3B 09-26 05:30
PROVIDERS: ADMIT Internal Medicine; ATTEND Internal Medicine
DX: J44.1 Chronic obstructive pulmonary disease with (acute) exacerbation (principal); I45.2 Bifascicular block; N17.9 Acute kidney failure, unspecified; E87.2 Acidosis; J96.12 Chronic respiratory failure with hypercapnia; I50.32 Chronic diastolic (congestive) heart failure; Q61.3 Polycystic kidney, unspecified; I11.0 Hypertensive heart disease with heart failure; Z99.81 Dependence on supplemental oxygen; E78.5 Hyperlipidemia, unspecified; M79.7 Fibromyalgia; Z86.718 Personal history of other venous thrombosis and embolism; Z79.01 Long term (current) use of anticoagulants; Z87.891 Personal history of nicotine dependence; E86.0 Dehydration; G89.29 Other chronic pain; G57.92 Unspecified mononeuropathy of left lower limb; G25.81 Restless legs syndrome; M54.30 Sciatica, unspecified side
CPT/HCPCS: 36600; 70450; 71010; 80048; 80053; 80069; 81001; 82550; 82805; 83605; 83735; 83880; 84484; 85025; 85610; 85730; 87040; 93005; 94002; 94640; 94664; 96365; 96367; 96375; J2920; J2930; J7040; J7613

== ENCOUNTER 2016-10-10 02:07 | Inpatient (IN) | payer OTHER, MEDICARE ==
[~2016-10-10] VITALS: Ht 160 cm; Wt 68.8 kg
[2016-10-10] VITALS (15 sets, daily range): BP systolic 120–141; BP diastolic 57–67; PULSE 57–77; RESP 20–22; TEMP 97.8–98; O2SAT 55–97
[~2016-10-10 02:07] MED LIST changes: +ALBU1.25 NEB; +IPRASOL NEB; -MEDR4PAK PO; +PRED10 PO; +SYMB160A INH
[2016-10-10] MEDS: RESP: ALBUTEROL 2.5 MG/IPRATROPIUM 0.5 MG NEB (SCH) INH ×5 (02:30→21:18)
[2016-10-10] MEDS ORDERED: methylPREDNISolone SOD SUCC 125 MG/2 ML VIAL IVP ONE (02:30)
[2016-10-10] MEDS ORDERED: SODIUM CHLORIDE 0.9% FLUSH 10 ML FLUSH IVF PRN (02:30)
[2016-10-10 02:36] LABS: AUTOMATED NEUTROPHIL # 8.5 TH/MM3 (1.8-7.7); BASOPHIL % 0.1 % (0.0-2.0); HEMATOCRIT 38.9 % (35.0-46.0); HEMO FLAGS DIFF FINAL; LYMPH % 2.5 % (9.0-44.0); LYMPHOCYTE # 0.2 TH/MM3 (1.0-4.8); MEAN CORPUSCULAR HEMOGLOBIN 30.1 PG (27.0-34.0); MEAN CORPUSCULAR HGB CONC 31.7 % (32.0-36.0); MONO % 1.2 % (0.0-8.0); NEUT % 96.2 % (16.0-70.0); PLATELET COUNT 243 TH/MM3 (150-450); RED BLOOD COUNT 4.09 MIL/MM3 (4.00-5.30); WHITE BLOOD COUNT 8.9 TH/MM3 (4.0-11.0)
[2016-10-10] MEDS ORDERED: MEDI220T PO (02:44)
[2016-10-10] MEDS ORDERED: FERR325T PO (02:44)
[2016-10-10] MEDS ORDERED: GABA600T PO (02:44)
[2016-10-10] MEDS ORDERED: CYCL5TAB PO (02:44)
[2016-10-10] MEDS ORDERED: MULT400T PO (02:44)
[2016-10-10 02:49] LABS: BLOOD GAS CARBOXYHEMOGLOBIN 1.5 % (0-4); BLOOD GAS HCO3 38 mmol/L (22-26); BLOOD GAS METHEMOGLOBIN 0.8 % (0-2); BLOOD GAS O2 HGB SATURATION 71 % (90-100); BLOOD GAS PCO2 96 mmHg (38-42); BLOOD GAS PO2 41 mmHG (61-120); BLOOD GAS TOTAL HGB 11.1 G/DL (12.0-16.0); TEMP CORR TO 98.6
[2016-10-10 02:50] LABS: CRITICAL VALUE YES; DRAW SITE RT RADIAL; LITER FLOW 4 L/M; NUMBER OF ARTERIAL PUNCTURES 1; OXYGEN DEVICE NASAL CANNULA; STAT YES
[2016-10-10 02:52] LABS: APTT (PATIENT) 31.7 SEC (24.3-30.1)
[2016-10-10 03:00] LABS: ALT (GPT) 22 U/L (10-53); ANION GAP 2 MEQ/L (5-15); AST (GOT) 16 U/L (15-37); BICARBONATE 37.9 MEQ/L (21.0-32.0); BLOOD UREA NITROGEN 32 MG/DL (7-18); CHLORIDE 93 MEQ/L (98-107); GLOMERULAR FILTRATION RATE 30 ML/MIN (>89); MAGNESIUM 2.8 MG/DL (1.5-2.5); SODIUM (NA) 133 MEQ/L (136-145)
--- NOTE | 2016-10-10 03:02 | PD ---
HPI Chief Complaint: Respiratory Distress Time Seen by Provider: 02:11 Travel History International Travel<30 days: No Contact w/Intl Traveler<30days: No Traveled to known affect area: No History of Present Illness HPI The patient is a 76-year-old female who presents emergency department via EMS for hypoxia and shortness of breath. The patient has a history of COPD and recent pneumonia, was awakened for breathing treatment and noted to have an oxygen saturation of 48% on 3 L. The patient is chronically on 2-3 L with a normal oxygen saturation between 89-91% according to EMS and the patient. The patient does note increasing shortness of breath which improved with oxygen via nonrebreather. The patient does have a history of COPD, also notes a history of pulmonary embolism 2, however, is not currently anticoagulated. The patient does state she is on Xarelto in the past, but is no longer taking Xarelto. The patient denies any acute swelling of the lower extremities. The patient denies any chest pain, nausea, vomiting, or abdominal pain. She denies any associated fever. PFSH Past Medical History Arthritis: Yes Anxiety: No Depression: No Heart Rhythm Problems: No Cancer: Yes Cardiovascular Problems: Yes High Cholesterol: Yes Chemotherapy: No Congestive Heart Failure: Yes COPD: Yes Coronary Artery Disease: No Diabetes: No Diminished Hearing: Yes Deep Vein Thrombosis: Yes (x2 ) Fibromyalgia: Yes Gastrointestinal Disorders: No Genitourinary: Yes Headaches: Yes Hypertension: Yes Immune Disorder: No Implanted Vascular Access Dvce: No Musculoskeletal: Yes Neurologic: Yes Psychiatric: No Reproductive: No Respiratory: Yes (HOME O2/OXYGEN DEPENDENT) Radiation Therapy: Yes (FOR GOITER) Thyroid Disease: Yes Tetanus Vaccination: > 5 Years Menopausal: Yes Tubal Ligation: Yes Past Surgical History Ear Surgery: Yes (INPLANT RT/ CATARACT) Eye Surgery: Yes (CATARACT) Gynecologic Surgery: Yes (TUBAL LIGATION) Tonsillectomy: Yes Other Surgery: Yes Social History Alcohol Use: No Tobacco Use: No (quit 2013 smoked 1 ppd cigs for 57 yrs) Substance Use: No Allergies-Medications (Allergen,Severity, Reaction): Coded Allergies: Azithromycin (Verified Allergy, Severe, STOMACH CRAMPS, 10/10/16) Penicillin (Verified Allergy, Severe, 10/10/16) Reported Meds & Prescriptions Reported Meds & Active Scripts Active Prednisone 10 Mg Tab 10 Mg PO DAILY Take 40mg daily for 3 days; 20mg daily for 3 days; 10mg daily for 3 days, then stop. Duoneb (Ipratropium-Albuterol Neb) 0.5-2.5 Mg/3 Ml Neb 1 Ampule NEB Q4HR NEB 30 Days Symbicort Inh (Budesonide/Formoterol Fumarate) 160-4.5 Mcg/Act Aero 2 Puff INH Q12HR 30 Days Albuterol Neb (Albuterol Sulfate) 1.25 Mg/3 Ml Neb 1.25 Mg NEB Q2HR NEB PRN 30 Days Oxycodone-Acetaminophen 10-325 mg Tab 1 Tab PO Q6H PRN Reported Flexeril (Cyclobenzaprine HCl) 5 Mg Tab 5 Mg PO TID Gabapentin 600 Mg Tab 600 Mg PO TID Ferrous Sulfate 325 Mg Tab 325 Mg PO DAILY Review of Systems Except as stated in HPI: all other systems reviewed are Neg General / Constitutional: No: Fever Cardiovascular: No: Chest Pain or Discomfort Respiratory: Positive: Cough, Shortness of Breath Gastrointestinal: No: Nausea, Vomiting, Abdominal Pain Musculoskeletal: No: Edema Physical Exam Narrative GENERAL: Awake, alert, pleasant 76-year-old female who appears her stated age and is in mild respiratory distress. SKIN: Focused skin assessment warm/dry. HEAD: Atraumatic. Normocephalic. EYES: No injection or drainage. ENT: No nasal bleeding or discharge. Mucous membranes pink and moist. NECK: Trachea midline. No JVD. CARDIOVASCULAR: Regular rate and rhythm. No murmur appreciated. Heart rate in the 70s. RESPIRATORY: No accessory muscle use. Diminished breath sounds, however, no obvious wheeze. GASTROINTESTINAL: Abdomen soft, non-tender, nondistended. No rebound tenderness. MUSCULOSKELETAL: Right lower extremity slightly larger than the left lower extremity, the calves are soft bilaterally. Negative Homans sign. Ecchymosis noted over the anterior aspect of the right patella.. NEUROLOGICAL: Awake and alert. No obvious cranial nerve deficits. Motor grossly within normal limits. Normal speech. Nonfocal. PSYCHIATRIC: Appropriate mood and affect; insight and judgment normal. Data Data Last Documented VS Vital Signs Date Time Temp Pulse Resp B/P Pulse Ox O2 Delivery O2 Flow Rate FiO2 10/10/16 03:00 63 20 131/60 91 BiPAP 10/10/16 02:29 3 10/10/16 02:16 98.0 Orders Complete Blood Count With Diff (10/10/16 02:19) Comprehensive Metabolic Panel (10/10/16 02:19) B-Type Natriuretic Peptide (10/10/16 02:19) Act Partial Throm Time (Ptt) (10/10/16 02:19) Prothrombin Time / Inr (Pt) (10/10/16 02:19) Magnesium (Mg) (10/10/16 02:19) Ckmb (Isoenzyme) Profile (10/10/16 02:19) Troponin I (10/10/16 02:19) Arterial Blood Gas (Abg) (10/10/16 02:19) Iv Access Insert/Monitor (10/10/16 02:19) Electrocardiogram (10/10/16 02:19) Ecg Monitoring (10/10/16 02:19) Oximetry (10/10/16 02:19) Oxygen Administration (10/10/16 02:19) Chest, Single Ap (10/10/16 02:19) Sodium Chloride 0.9% Flush (Ns Flush) (10/10/16 02:30) Methylprednisolone So Succ Inj (Solumedr (10/10/16 02:30) Albuterol-Ipratropium Neb (Duoneb Neb) (10/10/16 02:30) Resp Bipap / Cpap Non Invas Vt (10/10/16 ) Enoxaparin Inj (Lovenox Inj) (10/10/16 03:15) Levofloxacin 500 Mg Premix Inj (Levaquin (10/10/16 03:15) Lactic Acid (10/10/16 03:05) Blood Culture (10/10/16 03:05) Sodium Polysty Sulfate Liq (Kayexalate L (10/10/16 03:30) Labs Laboratory Tests Test 10/10/16 10/10/16 02:20 02:31 White Blood Count 8.9 TH/MM3 Red Blood Count 4.09 MIL/MM3 Hemoglobin 12.3 GM/DL Hematocrit 38.9 % Mean Corpuscular Volume 95.0 FL Mean Corpuscular Hemoglobin 30.1 PG Mean Corpuscular Hemoglobin 31.7 % Concent Red Cell Distribution Width 16.0 % Platelet Count 243 TH/MM3 Mean Platelet Volume 7.6 FL Neutrophils (%) (Auto) 96.2 % Lymphocytes (%) (Auto) 2.5 % Monocytes (%) (Auto) 1.2 % Eosinophils (%) (Auto) 0.0 % Basophils (%) (Auto) 0.1 % Neutrophils # (Auto) 8.5 TH/MM3 Lymphocytes # (Auto) 0.2 TH/MM3 Monocytes # (Auto) 0.1 TH/MM3 Eosinophils # (Auto) 0.0 TH/MM3 Basophils # (Auto) 0.0 TH/MM3 CBC Comment DIFF FINAL Differential Comment Prothrombin Time 11.0 SEC Prothromb Time International 1.0 RATIO Ratio Activated Partial 31.7 SEC Thromboplast Time Sodium Level 133 MEQ/L Potassium Level 6.0 MEQ/L Chloride Level 93 MEQ/L Carbon Dioxide Level 37.9 MEQ/L Anion Gap 2 MEQ/L Blood Urea Nitrogen 32 MG/DL Creatinine 1.66 MG/DL Estimat Glomerular Filtration 30 ML/MIN Rate Random Glucose 141 MG/DL Calcium Level 8.9 MG/DL Magnesium Level 2.8 MG/DL Total Bilirubin 0.3 MG/DL Aspartate Amino Transf 16 U/L (AST/SGOT) Alanine Aminotransferase 22 U/L (ALT/SGPT) Alkaline Phosphatase 30 U/L Total Creatine Kinase 59 U/L Troponin I 0.03 NG/ML B-Type Natriuretic Peptide 82 PG/ML Total Protein 6.0 GM/DL Albumin 3.1 GM/DL Blood Gas Puncture Site RT RADIAL Blood Gas Patient Temperature 98.6 Blood Gas HCO3 38 mmol/L Blood Gas Base Excess 10.0 mmol/L Blood Gas Oxygen Saturation 71 % Arterial Blood pH 7.22 Arterial Blood Partial 96 mmHg Pressure CO2 Arterial Blood Partial 41 mmHG Pressure O2 Arterial Blood Oxygen Content 11.0 Vol % Arterial Blood 1.5 % Carboxyhemoglobin Arterial Blood Methemoglobin 0.8 % Blood Gas Hemoglobin 11.1 G/DL Oxygen Delivery Device NASAL CANNULA Blood Gas Liter Flow 4 L/M [facility] Medical Decision Making Medical Screen Exam Complete: Yes Emergency Medical Condition: Yes Medical Record Reviewed: Yes Interpretation(s) EKG reveals normal sinus rhythm with a rate of 63. Right bundle-branch block. Left anterior fascicular block. Last Impressions Chest X-Ray 10/10/16 0219 Signed Impressions: Service Date/Time: Monday, October 10, 2016 02:36 - CONCLUSION: Bilateral pleural effusions and bibasilar infiltrates. Zachary Perry Jr., MD Laboratory Tests Test 10/10/16 10/10/16 02:20 02:31 White Blood Count 8.9 TH/MM3 Red Blood Count 4.09 MIL/MM3 Hemoglobin 12.3 GM/DL Hematocrit 38.9 % Mean Corpuscular Volume 95.0 FL Mean Corpuscular Hemoglobin 30.1 PG Mean Corpuscular Hemoglobin 31.7 % Concent Red Cell Distribution Width 16.0 % Platelet Count 243 TH/MM3 Mean Platelet Volume 7.6 FL Neutrophils (%) (Auto) 96.2 % Lymphocytes (%) (Auto) 2.5 % Monocytes (%) (Auto) 1.2 % Eosinophils (%) (Auto) 0.0 % Basophils (%) (Auto) 0.1 % Neutrophils # (Auto) 8.5 TH/MM3 Lymphocytes # (Auto) 0.2 TH/MM3 Monocytes # (Auto) 0.1 TH/MM3 Eosinophils # (Auto) 0.0 TH/MM3 Basophils # (Auto) 0.0 TH/MM3 CBC Comment DIFF FINAL Differential Comment Prothrombin Time 11.0 SEC Prothromb Time International 1.0 RATIO Ratio Activated Partial 31.7 SEC Thromboplast Time Sodium Level 133 MEQ/L Potassium Level 6.0 MEQ/L Chloride Level 93 MEQ/L Carbon Dioxide Level 37.9 MEQ/L Anion Gap 2 MEQ/L Blood Urea Nitrogen 32 MG/DL Creatinine 1.66 MG/DL Estimat Glomerular Filtration 30 ML/MIN Rate Random Glucose 141 MG/DL Calcium Level 8.9 MG/DL Magnesium Level 2.8 MG/DL Total Bilirubin 0.3 MG/DL Aspartate Amino Transf 16 U/L (AST/SGOT) Alanine Aminotransferase 22 U/L (ALT/SGPT) Alkaline Phosphatase 30 U/L Total Creatine Kinase 59 U/L Troponin I 0.03 NG/ML B-Type Natriuretic Peptide 82 PG/ML Total Protein 6.0 GM/DL Albumin 3.1 GM/DL Blood Gas Puncture Site RT RADIAL Blood Gas Patient Temperature 98.6 Blood Gas HCO3 38 mmol/L Blood Gas Base Excess 10.0 mmol/L Blood Gas Oxygen Saturation 71 % Arterial Blood pH 7.22 Arterial Blood Partial 96 mmHg Pressure CO2 Arterial Blood Partial 41 mmHG Pressure O2 Arterial Blood Oxygen Content 11.0 Vol % Arterial Blood 1.5 % Carboxyhemoglobin Arterial Blood Methemoglobin 0.8 % Blood Gas Hemoglobin 11.1 G/DL Oxygen Delivery Device NASAL CANNULA Blood Gas Liter Flow 4 L/M Differential Diagnosis Differential diagnosis includes COPD exacerbation, pulmonary embolism, pneumonia , bronchitis, pleural effusion, hypoxia. Narrative Course IV was established, labs are drawn and sent, and the patient was placed on cardiac telemetry monitoring and continuous pulse oximetry monitoring. EKG was ordered and interpreted. Chest x-ray was obtained. ABG reveals a pH is 7.217 with PCO2 96.3 and a bicarbonate 37.7, consistent with partially compensated respiratory acidosis. Patient was hypoxic 55% on room air, 70% on 3 L, therefore, was placed on BiPAP. The patient's GFR was 30, therefore, patient cannot have CT pulmonary angiogram. The patient was administered 500 cc fluid bolus. The patient was also covered with Levaquin for possible pneumonia. The patient was administered Lovenox 70 mg subcutaneously to cover for possible pulmonary embolism/DVT. She may need VQ scan during the day. The patient's potassium is 6.0, no evidence of hemolysis. Creatinine was elevated at 1.66, EMR reveals a baseline is around 1.1-1.2. Patient was administered 500 cc of fluid, however, was not administered multiple boluses secondary to bilateral pleural effusions and hypoxia. The patient will be admitted to the intensive care unit, BiPAP on her O2 sat up to 90%, she is awake , alert, following commands. Critical Care Narrative Aggregate critical care time was 40 minutes. Time to perform other separately billable procedures was not included in the critical care time. My time did not include minutes spent treating any other patients simultaneously or on activities that did not directly contribute to the patient's treatment. The services I provided to this patient were to treat and/or prevent clinically significant deterioration that could result in: Anoxia, hypoxia, respiratory acidosis, arrhythmia, PA, . I provided critical care services requiring my management, as noted below: Chart data review, documentation time, medication orders and management, vital sign assessments/reviewing monitor data, ordering and reviewing lab tests, ordering and interpreting/reviewing x-rays and diagnostic studies, care of the patient and discussion of the patient with the admitting physicians. Physician Communication Physician Communication The on-call script girl was paged for admission. I discussed the patient with the on-call script girl, Dr. Dia, who agrees with admission. Diagnosis Primary Impression: Acute respiratory failure with hypoxia and hypercapnia Additional Impressions: Acute kidney injury Hyperkalemia Admitting Information Admitting Physician Requests: Admit Condition: Serious PortilloYobani lobo MD Oct 10, 2016 03:02
[2016-10-10 03:04] LABS: ALKALINE PHOSPHATASE 30 U/L (45-117); TOTAL BILIRUBIN ADULT 0.3 MG/DL (0.2-1.0)
[2016-10-10 03:06] LABS: CREATINE KINASE 59 U/L (26-192)
--- NOTE | 2016-10-10 03:08 | RADRPT ---
EXAM DATE/TIME: 10/10/2016 02:36 [facility] COMPARISON: CHEST SINGLE AP, September 25, 2016, 21:53. INDICATIONS : Shortness of breath. MEDICAL HISTORY : Chronic obstructive pulmonary disease. Renal insufficiency. Hypertension. SURGICAL HISTORY : None. ENCOUNTER: Initial ACUITY: 1 day PAIN SCORE: 0/10 LOCATION: chest FINDINGS: A single portable frontal view of the chest shows bibasilar intralobular infiltrates with tiny bilate ral pleural effusions. Appearance similar to the prior study. Heart is mildly enlarged. Right apical pleural thickening. Left upper lobe granuloma. CONCLUSION: Bilateral pleural effusions and bibasilar infiltrates. Zachary Perry Jr., MD on October 10, 2016 at 3:05 Board Certified Radiologist. This report was verified electronically.
[2016-10-10] MEDS ORDERED: ENOXAPARIN SODIUM 80 MG/0.8 ML SYRINGE SQ ONE (03:15)
[2016-10-10] MEDS ORDERED: LEVOFLOXACIN 500 MG PREMIX INJ 100 ML IV ONE (03:15)
[2016-10-10] MEDS ORDERED: SODIUM POLYSTYRENE SULFONATE SUSP 15 GM/60 ML CUP PO ONE (03:30)
--- NOTE | 2016-10-10 04:58 | HHI.HP ---
HPI Service Critical Care Medicine Primary Care Physician Fernanda Fox MD Admission Diagnosis hypoxia, pneumonia, pleural effusion, a [employer], hyperk Diagnosis: Travel History International Travel<30 Days: No Contact w/Intl Traveler <30 Da: No Traveled to Known Affected Are: No History of Present Illness 76-year-old female presents via EMS for hypoxia and shortness of breath. The patient has a history of COPD and recent pneumonia, history of pulmonary embolism was awakened for breathing treatment and noted to have an oxygen saturation of 48% on 3 L. The patient is chronically on 2-3 L with a normal oxygen saturation between 89-91% according to EMS and the patient. The patient does note increasing shortness of breath which improved with oxygen via nonrebreather. The patient also has a history of pulmonary embolism 2, currently not anticoagulated. She was on Xarelto in the past, but is no longer taking Xarelto. The patient denies any acute swelling of the lower extremities. The patient denies any chest pain, nausea, vomiting, or abdominal pain. She denies any associated fever. Review of Systems ROS Unable to obtain patient patient is on facemask BiPAP Past Family Social History Allergies: Coded Allergies: Azithromycin (Verified Allergy, Severe, STOMACH CRAMPS, 10/10/16) Penicillin (Verified Allergy, Severe, 10/10/16) Past Medical History COPD - O2 dependent Prior respiratory failure with intubation Pneumonia CHF (grade I diastolic dysfunction) HTN Polycystic kidney disease DVT (diagnosed March 23) anemia dyslipidemia tobacco use fibromyalgia / arthritis Hx of Goiter s/p radiation therapy with subsequent hypothyroidism DJD spine Fatty liver with cholelithiasis Diverticulosis RLS sciatica Past Surgical History Tonsillectomy Cataract surgery Tubal ligation Reported Medications Reported Meds & Active Scripts Active Prednisone 10 Mg Tab 10 Mg PO DAILY Take 40mg daily for 3 days; 20mg daily for 3 days; 10mg daily for 3 days, then stop. Duoneb (Ipratropium-Albuterol Neb) 0.5-2.5 Mg/3 Ml Neb 1 Ampule NEB Q4HR NEB 30 Days Symbicort Inh (Budesonide/Formoterol Fumarate) 160-4.5 Mcg/Act Aero 2 Puff INH Q12HR 30 Days Albuterol Neb (Albuterol Sulfate) 1.25 Mg/3 Ml Neb 1.25 Mg NEB Q2HR NEB PRN 30 Days Oxycodone-Acetaminophen 10-325 mg Tab 1 Tab PO Q6H PRN Reported Flexeril (Cyclobenzaprine HCl) 5 Mg Tab 5 Mg PO TID Gabapentin 600 Mg Tab 600 Mg PO TID Ferrous Sulfate 325 Mg Tab 325 Mg PO DAILY Active Ordered Medications Current Medications Medications (Trade) Dose Ordered Sig/Lili Route PRN Reason Start Time Stop Time Status Last Admin Dose Admin Sodium Chloride 2 ml 2 ml UNSCH PRN IVF FLUSH AFTER USING IV ACCESS 10/10/16 02:30 10/10/16 04:16 Sodium Chloride (NS 1000 ml Inj) 1,000 ml @ 84 mls/hr [id number] IV 10/10/16 04:46 UNV Sodium Chloride (NS Flush) 2 ml UNSCH PRN .XX FLUSH AFTER USING IV ACCESS 10/10/16 05:00 UNV Sodium Chloride (NS Flush) 2 ml BID .XX 10/10/16 09:00 UNV Acetaminophen (Tylenol) 650 mg Q6H PRN PO PAIN 1-10 AND/OR FEVER >101F 10/10/16 05:00 UNV Morphine Sulfate (Morphine Inj) 2 mg Q2H PRN IV PAIN SCALE 6 TO 10 10/10/16 05:00 UNV Famotidine (Pepcid Inj) 20 mg Q12HR IV PUSH 10/10/16 09:00 UNV Lorazepam (Ativan Inj) 2 mg Q4H PRN IV Agitation/Sedation 10/10/16 05:00 UNV Ondansetron HCl (Zofran Inj) 4 mg Q6H PRN IV NAUSEA OR VOMITING 10/10/16 05:00 UNV Metoclopramide HCl (Reglan Inj) 10 mg Q6H PRN IV NAUSEA OR VOMITING 10/10/16 05:00 UNV Enoxaparin Sodium (Lovenox Inj) 60 mg Q12H SQ 10/10/16 05:00 UNV Miscellaneous Information 1 [id number] XX 10/10/16 05:00 UNV Chlorhexidine Gluconate (Chlorhexidine 2% Cloth) 3 pack Taper DAILY@04 TOP 10/11/16 04:00 10/07/17 03:59 UNV Chlorhexidine Gluconate (Chlorhexidine 2% Cloth) 3 pack UNSCH PRN TOP HYGIENIC CARE 10/10/16 05:00 UNV Family History Noncontributory Social History Quit smoking 3 years ago negative for alcohol or illicit drug abuse Physical Exam Vital Signs Vital Signs Date Time Temp Pulse Resp B/P Pulse Ox O2 Delivery O2 Flow Rate FiO2 10/10/16 03:27 92 60 10/10/16 03:00 63 20 131/60 91 BiPAP 10/10/16 02:29 71 22 70 Nasal Cannula 3 10/10/16 02:24 22 70 Nasal Cannula 3 10/10/16 02:24 70 Nasal Cannula 3 10/10/16 02:16 98.0 77 22 120/60 55 Physical Exam GENERAL: Elderly woman on facemask BiPAP SKIN: Warm and dry. HEAD: Normocephalic. EYES: No scleral icterus. No injection or drainage. NECK: Supple, trachea midline. No JVD or lymphadenopathy. CARDIOVASCULAR: Regular rate and rhythm without murmurs, gallops, or rubs. RESPIRATORY: Breath sounds equal bilaterally. No accessory muscle use. GASTROINTESTINAL: Abdomen soft, non-tender, nondistended. MUSCULOSKELETAL: No cyanosis, or edema. BACK: Nontender without obvious deformity. No CVA tenderness. EXTREMITIES: No clubbing cyanosis or edema Laboratory Laboratory Tests Test 10/10/16 10/10/16 10/10/16 02:20 02:31 03:00 White Blood Count 8.9 Red Blood Count 4.09 Hemoglobin 12.3 Hematocrit 38.9 Mean Corpuscular Volume 95.0 Mean Corpuscular Hemoglobin 30.1 Mean Corpuscular Hemoglobin 31.7 Concent Red Cell Distribution Width 16.0 Platelet Count 243 Mean Platelet Volume 7.6 Neutrophils (%) (Auto) 96.2 Lymphocytes (%) (Auto) 2.5 Monocytes (%) (Auto) 1.2 Eosinophils (%) (Auto) 0.0 Basophils (%) (Auto) 0.1 Neutrophils # (Auto) 8.5 Lymphocytes # (Auto) 0.2 Monocytes # (Auto) 0.1 Eosinophils # (Auto) 0.0 Basophils # (Auto) 0.0 CBC Comment DIFF FINAL Differential Comment Prothrombin Time 11.0 Prothromb Time International 1.0 Ratio Activated Partial 31.7 Thromboplast Time Sodium Level 133 Potassium Level 6.0 Chloride Level 93 Carbon Dioxide Level 37.9 Anion Gap 2 Blood Urea Nitrogen 32 Creatinine 1.66 Estimat Glomerular Filtration 30 Rate Random Glucose 141 Calcium Level 8.9 Magnesium Level 2.8 Total Bilirubin 0.3 Aspartate Amino Transf 16 (AST/SGOT) Alanine Aminotransferase 22 (ALT/SGPT) Alkaline Phosphatase 30 Total Creatine Kinase 59 Troponin I 0.03 B-Type Natriuretic Peptide 82 Total Protein 6.0 Albumin 3.1 Blood Gas Puncture Site RT RADIAL Blood Gas Patient Temperature 98.6 Blood Gas HCO3 38 Blood Gas Base Excess 10.0 Blood Gas Oxygen Saturation 71 Arterial Blood pH 7.22 Arterial Blood Partial 96 Pressure CO2 Arterial Blood Partial 41 Pressure O2 Arterial Blood Oxygen Content 11.0 Arterial Blood 1.5 Carboxyhemoglobin Arterial Blood Methemoglobin 0.8 Blood Gas Hemoglobin 11.1 Oxygen Delivery Device NASAL CANNULA Blood Gas Liter Flow 4 Lactic Acid Level 0.6 Date/Time Procedure Status Source Growth 10/10/16 03:10 Aerobic Blood Culture Received Blood Peripheral Pending 10/10/16 03:10 Anaerobic Blood Culture Received Blood Peripheral Pending Result Diagram: 10/10/1621910/10/16219 Imaging Last 24 hours Impressions Chest X-Ray 10/10/16218 Signed Impressions: Service Date/Time: Monday, October 10, 2016 02:36 - CONCLUSION: Bilateral pleural effusions and bibasilar infiltrates. Zachary Perry Jr., MD Assessment and Plan Assessment and Plan Respiratory failure - COPD exacerbation - Bilateral pulmonary infiltrate - Bilateral pleural effusion - History of pulmonary embolism without active anticoagulation - VQ scan - DuoNeb's - Levaquin - Solu-Medrol - BiPAP - Pulmonary consult Hypokalemia - Gentle hydration - Repeat BMP - No EKG changes History of DVT and PE -Full dose Lovenox - VQ scan CHF (grade I diastolic dysfunction) - Strict blood pressure control HTN - When necessary meds Anemia - Iron deficiency - Ferrous sulfate by mouth Sciatica - Gabapentin - Oxycodone when necessary DVT GI prophylaxis - Lovenox 60 twice a day - Pepcid - Nothing by mouth while on BiPAP Critical Care: The total critical care time was 35 minutes. Time to perform other separately billable procedures was not included in the critical care time. Austin Dia MD Oct 10, 2016 04:58
[2016-10-10] MEDS ORDERED: SODIUM CHLORIDE 0.9% FLUSH 10 ML FLUSH PRN (05:00)
[2016-10-10] MEDS ORDERED: CHLORHEXIDINE GLUCONATE 2 % 1 PACK (2 CLOTHS) TOP PRN (05:00)
[2016-10-10] MEDS ORDERED: LORazepam 2 MG/ML VIAL IV PRN (05:00)
[2016-10-10] MEDS ORDERED: RESP: ALBUTEROL 2.5 MG/IPRATROPIUM 0.5 MG NEB (PRN) INH (05:00)
[2016-10-10] MEDS ORDERED: METOCLOPRAMIDE HCL 10 MG/2 ML VIAL IV PRN (05:00)
[2016-10-10] MEDS ORDERED: ONDANSETRON HCL 4 MG/2 ML VIAL IV PRN (05:00)
[2016-10-10] MEDS ORDERED: ENOXAPARIN SODIUM 40 MG/0.4 ML SYRINGE SQ SCH (05:00)
[2016-10-10] MEDS ORDERED: MISCELLANEOUS NURSING INFORMATION XX SCH (05:00)
[2016-10-10] MEDS: SODIUM CHLOR 0.9% 1000 ML INJ 1,000 ML IV SCH ×2 (05:10→16:41)
[2016-10-10] MEDS: methylPREDNISolone SOD SUCC 40 MG/1 ML VIAL IV PUSH SCH ×3 (05:59→17:42)
[2016-10-10] MEDS: GABAPENTIN 300 MG CAP PO SCH ×2 (09:00→21:29)
[2016-10-10] MEDS: FAMOTIDINE 20 MG/2 ML VIAL IV PUSH SCH ×2 (09:00→21:29)
[2016-10-10] MEDS: SODIUM CHLORIDE 0.9% FLUSH 10 ML FLUSH SCH ×2 (09:00→21:00)
[2016-10-10] MEDS: ENOXAPARIN SODIUM 60 MG/0.6 ML SYRINGE SQ SCH (09:00)
[2016-10-10] MEDS: BUDESONIDE-FORMOTEROL 160/4.5 MCG INHALER INH SCH ×2 (09:00→21:00)
[2016-10-10] MEDS ORDERED: GABAPENTIN 300 MG CAP PO SCH (09:00)
[2016-10-10] MEDS ORDERED: LIDOCAINE HCL 2% 100 MG/5 ML SYRINGE ONE (11:28)
[2016-10-10] MEDS ORDERED: ATROPINE SULFATE 1 MG/10 ML SYRINGE ONE (11:28)
[2016-10-10] MEDS ORDERED: EPINEPHrine HCL (1:10,000) 1 MG/10 ML SYRINGE ONE (11:28)
[2016-10-10] MEDS: oxyCODONE/ACETAMINOPHEN 10 MG/325 MG TAB PO PRN (12:00)
--- NOTE | 2016-10-10 12:57 | RADRPT ---
EXAM DATE/TIME: 10/10/2016 09:39 [facility] COMPARISON: CHEST SINGLE AP, October 10, 2016, 2:36. INDICATIONS : Shortness of breath, history of pulmonary embolism and smoking. DOSE: 8.8 mCi Tc99m MAA IV 1.7 mCi Tc99m DTPA aerosol MEDICAL HISTORY : Chronic obstructive pulmonary disease. Renal insufficiency. Hypertension. SURGICAL HISTORY : Tubal ligation. ENCOUNTER: Initial ACUITY: 1 day PAIN SCALE: 2/10 LOCATION: Bilateral chest TECHNIQUE: Following five minutes of tidal breathing of DTPA aerosol, planar images of the lungs were performed in eight projections. The patient was then injected with MAA, and eight-view perfusion scan was perf ormed. FINDINGS: There are no areas of segmental perfusion defects to suggest pulmonary embolus. There are patchy area s of peripheral ventilatory defects corresponding to COPD and partially due to parenchymal changes on the patient's chest x-ray particularly in the lower lungs. CONCLUSION: Low probability for pulmonary embolus. Anuradha Anthony MD on October 10, 2016 at 12:54 Board Certified Radiologist. This report was verified electronically.
[2016-10-10 16:35] LABS: CREATINE KINASE 30 U/L (26-192)
--- NOTE | 2016-10-10 18:49 | EKG ---
Date Performed: 10/10/2016 Time Performed: 02:50:44 PTAGE: 76 years EKG: Sinus rhythm RIGHT BUNDLE BRANCH BLOCK LEFT ANTERIOR FASCICULAR BLOCK POSSIBLE ANTERIOR MYOCARDIAL INFARCTION ABN ORMAL ECGCompared to prior tracing no significant change PREVIOUS TRACING : 09/25/2016 21.30 DOCTOR: Desmond Diaz Interpretating Date/Time 10/10/2016 18:48:44
--- NOTE | 2016-10-10 20:52 | MB ---
cc: WAYNE JONES DATE OF CONSULTATION 10/10/[address] Champion REASON FOR CONSULTATION Respiratory failure. PRESENT ILLNESS Ms. Diaz is a pleasant 76-year-old female who is known to me from the office. She has history of COPD, pulmonary embolism, DVT. She is oxygen dependent and uses oxygen 2-3 liters nasal cannula. She was brought to the hospital because of worsening of her shortness of breath and she woke up and her saturation was 48% or so. [facility] arrived and gave her some oxygen with improvement. She was brought to the hospital. She had a blood gas done which shows her pH is 7.22, pCO2 96, pO2 41. She was put on BiPap. She has significantly improved. Does not want to keep the BiPap. She had a VQ scan done which shows low probability for pulmonary embolism. She had a chest x-ray done which showed bilateral pleural effusion with bibasilar infiltrate. Her CBC showed WBC count 8.9, hemoglobin 12.3, hematocrit 38.9, MCV 95, platelet count 243, sodium 133, potassium 6.0, chloride 93, CO2 38. BUN 32, creatinine 1.66. PAST MEDICAL HISTORY 1. History of COPD, 2. Deep venous thrombosis, pulmonary embolism, 3. Congestive heart failure 4. Polycystic kidney disease 5. Hypertension 6. Chronic pain MEDICATIONS Currently taking 1. Levaquin 2. Famotidine 10 mg q.12 h 3. Symbicort 160/4.5 4. Neurontin 6 mg q. 12-hour 5. Lovenox 60 mg q. 24 hour 6. Albuterol/Atrovent nebulizer treatment 7. Solu-Medrol 40 mg q.6 h, 8. Oxycodone for pain 9. Lorazepam 2 mg p.r.n. ALLERGIES ZITHROMAX PENICILLIN SOCIAL HISTORY She has history of smoking in the past which she quit. No alcohol abuse. FAMILY HISTORY She lives with her son. REVIEW OF SYSTEMS She walks only short distance, uses oxygen all the time. No bleeding from any site. She was supposed to take Xarelto which, as per patient, was discontinued. PHYSICAL EXAMINATION GENERAL: Elderly female. She is on non-rebreather mask, has mild shortness of breath. VITAL SIGNS: Blood pressure 141/64, heart rate 64, respirations 20, temperature 98 HEENT: Pupils are equal and reactive to light. Oral mucosa, nasal mucosa normal. NECK: Supple. JVP not raised. CHEST: Equal bilaterally. Has decreased breath sounds at the bases. CARDIOVASCULAR: S1, S2 normal. ABDOMEN: Benign. EXTREMITIES: No edema. IMPRESSION 1. Hypercapnic respiratory failure and COPD exacerbation. 2. History of pulmonary embolism. Her VQ scan now is normal. 3. Renal insufficiency 4. History of polycystic kidney disease 5. Hyperkalemia. PLAN Monitor her electrolytes level. Supplemental her oxygen. She is on nonrebreather mass and tolerating it well. We will wean the oxygen to keep the saturation greater than 90% and use the C-PAP if the patient agrees and also if there is any change in her mental status. Continue antibiotic. Monitor electrolytes. Further treatment will depend on the course in the hospital. Thank you, Dr. Champion, for this consultation. MD LEENA Uribe/ /7:15 PM /8:40 PM
[2016-10-11] VITALS (17 sets, daily range): BP systolic 115–157; BP diastolic 57–92; PULSE 57–80; RESP 15–28; TEMP 97.4–98.4; O2SAT 93–96
[2016-10-11] MEDS: RESP: ALBUTEROL 2.5 MG/IPRATROPIUM 0.5 MG NEB (SCH) INH ×7 (01:04→23:29)
[2016-10-11] MEDS: LEVOFLOXACIN 250 MG PREMIX INJ 50 ML IV SCH (02:17)
[2016-10-11] MEDS: methylPREDNISolone SOD SUCC 40 MG/1 ML VIAL IV PUSH SCH ×5 (02:17→23:10)
[2016-10-11] MEDS: CHLORHEXIDINE GLUCONATE 2 % 1 PACK (2 CLOTHS) TOP SCH (04:00)
[2016-10-11] MEDS: SODIUM CHLOR 0.9% 1000 ML INJ 1,000 ML IV SCH ×3 (04:36→20:14)
[2016-10-11 04:56] LABS: AUTOMATED NEUTROPHIL # 6.4 TH/MM3 (1.8-7.7); BASOPHIL % 0.1 % (0.0-2.0); HEMATOCRIT 33.6 % (35.0-46.0); HEMO FLAGS DIFF FINAL; LYMPH % 4.6 % (9.0-44.0); LYMPHOCYTE # 0.3 TH/MM3 (1.0-4.8); MEAN CELL VOLUME 93.4 FL (80.0-100.0); MEAN CORPUSCULAR HEMOGLOBIN 30.2 PG (27.0-34.0); MEAN CORPUSCULAR HGB CONC 32.4 % (32.0-36.0); MONO % 3.2 % (0.0-8.0); NEUT % 92.1 % (16.0-70.0); PLATELET COUNT 226 TH/MM3 (150-450); RED CELL DISTRIBUTION WIDTH 15.3 % (11.6-17.2); WHITE BLOOD COUNT 6.9 TH/MM3 (4.0-11.0)
[2016-10-11] MEDS: oxyCODONE/ACETAMINOPHEN 10 MG/325 MG TAB PO PRN ×2 (05:16→23:10)
[2016-10-11 05:24] LABS: ALKALINE PHOSPHATASE 27 U/L (45-117); ALT (GPT) 19 U/L (10-53); ANION GAP 4 MEQ/L (5-15); AST (GOT) 9 U/L (15-37); BICARBONATE 37.2 MEQ/L (21.0-32.0); BLOOD UREA NITROGEN 29 MG/DL (7-18); CHLORIDE 96 MEQ/L (98-107); GLOMERULAR FILTRATION RATE 48 ML/MIN (>89); MAGNESIUM 2.6 MG/DL (1.5-2.5); POTASSIUM 5.4 MEQ/L (3.5-5.1); SODIUM (NA) 137 MEQ/L (136-145); TOTAL BILIRUBIN ADULT 0.4 MG/DL (0.2-1.0)
--- NOTE | 2016-10-11 07:02 | RADRPT ---
EXAM DATE/TIME: 10/11/2016 06:01 [facility] COMPARISON: CHEST SINGLE AP, October 10, 2016, 2:36. INDICATIONS : Shortness of breath. MEDICAL HISTORY : Chronic obstructive pulmonary disease. Renal insufficiency. SURGICAL HISTORY : None. ENCOUNTER: Subsequent ACUITY: 2 days PAIN SCORE: Non-responsive. LOCATION: Bilateral chest FINDINGS: A single portable frontal view the chest shows no interval change. Bilateral pulmonary infiltrates an d small effusions. Cardiomegaly. CONCLUSION: Unchanged bibasilar infiltrates and small effusions. Zachary Perry Jr., MD on October 11, 2016 at 7:00 Board Certified Radiologist. This report was verified electronically.
[2016-10-11] MEDS: SODIUM CHLORIDE 0.9% FLUSH 10 ML FLUSH SCH ×2 (07:46→20:02)
[2016-10-11] MEDS: BUDESONIDE-FORMOTEROL 160/4.5 MCG INHALER INH SCH ×2 (07:46→20:02)
[2016-10-11] MEDS: GABAPENTIN 300 MG CAP PO SCH ×2 (08:33→20:03)
[2016-10-11] MEDS: FAMOTIDINE 20 MG/2 ML VIAL IV PUSH SCH ×2 (08:34→20:03)
[2016-10-11] MEDS: ENOXAPARIN SODIUM 60 MG/0.6 ML SYRINGE SQ SCH (08:35)
[2016-10-11] MEDS ORDERED: SODIUM POLYSTYRENE SULFONATE SUSP 15 GM/60 ML CUP PO ONE (13:00)
--- NOTE | 2016-10-11 14:41 | HHI.CCPN ---
Subjective Remarks/Hospital Course 10/10: 76-year-old female presents via EMS for hypoxia and shortness of breath. The patient has a history of COPD and recent pneumonia, history of pulmonary embolism was awakened for breathing treatment and noted to have an oxygen saturation of 48% on 3 L. The patient is chronically on 2-3 L with a normal oxygen saturation between 89-91% according to EMS and the patient. The patient does note increasing shortness of breath which improved with oxygen via nonrebreather. The patient also has a history of pulmonary embolism 2, currently not anticoagulated. She was on Xarelto in the past, but is no longer taking Xarelto. The patient denies any acute swelling of the lower extremities. The patient denies any chest pain, nausea, vomiting, or abdominal pain. She denies any associated fever. 10/11: On BiPAP overnight and was subsequent switched to nonrebreather facemask this morning. Objective Vital Signs Date Time Temp Pulse Resp B/P Pulse Ox O2 Delivery O2 Flow Rate FiO2 10/11/16 12:00 98.3 67 23 115/57 95 10/11/16 08:45 Partial Rebreather 12.00 10/11/16 03:41 60 Intake and Output 10/10/16 10/10/16 10/11/16 08:00 16:00 00:00 Intake Total 25 ml 470 ml 816 ml Output Total 0 ml 1350 ml 500 ml Balance 25 ml -880 ml 316 ml Result Diagram: 10/11/16 0345 10/11/16 0345 Imaging Last 24 hours Impressions Chest X-Ray 10/10/16 0219 Signed Impressions: Service Date/Time: Monday, October 10, 2016 02:36 - CONCLUSION: Bilateral pleural effusions and bibasilar infiltrates. Zachary Perry Jr., MD Objective Remarks GENERAL: Elderly woman on nonrebreather facemask SKIN: Warm and dry. HEAD: Normocephalic. EYES: No scleral icterus. No injection or drainage. NECK: Supple, trachea midline. No JVD or lymphadenopathy. CARDIOVASCULAR: Regular rate and rhythm without murmurs, gallops, or rubs. RESPIRATORY: Breath sounds equal bilaterally. No accessory muscle use. Scattered rhonchi GASTROINTESTINAL: Abdomen soft, non-tender, nondistended. EXTREMITIES: No clubbing cyanosis or edema A/P Assessment and Plan Respiratory failure - COPD exacerbation - Bilateral pulmonary infiltrate - Bilateral pleural effusion - History of pulmonary embolism without active anticoagulation - VQ scan low probability for PE - DuoNeb's - Levaquin - Solu-Medrol - BiPAP prn. F/u ABG off BIPAP ordered. - Pulmonary consult Hypokalemia - Gentle hydration - Repeat BMP - No EKG changes History of DVT and PE -Full dose Lovenox - VQ scan CHF (grade I diastolic dysfunction) - Strict blood pressure control HTN - When necessary meds Hyperkalemia -Ordered Kayexalate, follow BMP Anemia - Iron deficiency - Ferrous sulfate by mouth Sciatica - Gabapentin - Oxycodone when necessary DVT GI prophylaxis - Lovenox 60 twice a day - Pepcid - Nothing by mouth while on BiPAP Deyvi Back MD Oct 11, 2016 14:41
[2016-10-11 15:02] LABS: BLOOD GAS BASE EXCESS 8.4 mmol/L (-2-2); BLOOD GAS CARBOXYHEMOGLOBIN 1.3 % (0-4); BLOOD GAS HCO3 34 mmol/L (22-26); BLOOD GAS METHEMOGLOBIN 1.1 % (0-2); BLOOD GAS O2 HGB SATURATION 90 % (90-100); BLOOD GAS OXYGEN CONTENT 13.5 Vol % (12.0-20.0); BLOOD GAS PCO2 65 mmHg (38-42); BLOOD GAS PO2 61 mmHg (61-120); BLOOD GAS TOTAL HGB 10.7 G/DL (12.0-16.0); CRITICAL VALUE YES; TEMP CORR TO 98.6
[2016-10-11 15:03] LABS: DRAW SITE RT RADIAL; LITER FLOW 15 L/M; NUMBER OF ARTERIAL PUNCTURES 1; STAT YES; ULNAR PULSE PRESENT
[2016-10-12] VITALS (14 sets, daily range): BP systolic 112–157; BP diastolic 57–73; PULSE 66–89; RESP 15–24; TEMP 97.6–98.6; O2SAT 88–97
[2016-10-12] MEDS: LEVOFLOXACIN 250 MG PREMIX INJ 50 ML IV SCH (02:11)
[2016-10-12] MEDS: CHLORHEXIDINE GLUCONATE 2 % 1 PACK (2 CLOTHS) TOP SCH (04:00)
[2016-10-12] MEDS: SODIUM CHLOR 0.9% 1000 ML INJ 1,000 ML IV SCH (04:03)
[2016-10-12] MEDS: RESP: ALBUTEROL 2.5 MG/IPRATROPIUM 0.5 MG NEB (SCH) INH ×6 (04:57→23:51)
[2016-10-12] MEDS: methylPREDNISolone SOD SUCC 40 MG/1 ML VIAL IV PUSH SCH ×3 (04:59→17:21)
[2016-10-12] MEDS: BUDESONIDE-FORMOTEROL 160/4.5 MCG INHALER INH SCH ×2 (09:00→21:00)
[2016-10-12] MEDS: ENOXAPARIN SODIUM 60 MG/0.6 ML SYRINGE SQ SCH (09:21)
[2016-10-12] MEDS: GABAPENTIN 300 MG CAP PO SCH ×2 (09:22→21:00)
[2016-10-12] MEDS: SODIUM CHLORIDE 0.9% FLUSH 10 ML FLUSH SCH ×2 (09:22→21:00)
[2016-10-12] MEDS: FAMOTIDINE 20 MG/2 ML VIAL IV PUSH SCH ×2 (09:22→21:00)
--- NOTE | 2016-10-12 10:31 | HHI.CCPN ---
Subjective Remarks/Hospital Course 10/10: 76-year-old female presents via EMS for hypoxia and shortness of breath. The patient has a history of COPD and recent pneumonia, history of pulmonary embolism was awakened for breathing treatment and noted to have an oxygen saturation of 48% on 3 L. The patient is chronically on 2-3 L with a normal oxygen saturation between 89-91% according to EMS and the patient. The patient does note increasing shortness of breath which improved with oxygen via nonrebreather. The patient also has a history of pulmonary embolism 2, currently not anticoagulated. She was on Xarelto in the past, but is no longer taking Xarelto. The patient denies any acute swelling of the lower extremities. The patient denies any chest pain, nausea, vomiting, or abdominal pain. She denies any associated fever. 10/11: On BiPAP overnight and was subsequent switched to nonrebreather facemask this morning. 10/12: On partial rebreather O2 since yesterday. Awake and alert, following commands. Objective Vital Signs Date Time Temp Pulse Resp B/P Pulse Ox O2 Delivery O2 Flow Rate FiO2 10/12/16 07:18 93 Partial Rebreather 15.00 10/12/16 06:00 68 10/12/16 04:00 97.9 24 134/63 10/11/16 03:41 60 Intake and Output 10/11/16 10/11/16 10/12/16 08:00 16:00 00:00 Intake Total 730 ml 555 ml 485 ml Output Total 300 ml 500 ml 475 ml Balance 430 ml 55 ml 10 ml Result Diagram: 10/11/16 0345 10/11/16 0345 Other Results Laboratory Tests Test 10/11/16 14:50 Blood Gas Puncture Site RT RADIAL Blood Gas Patient Temperature 98.6 Blood Gas HCO3 34 mmol/L Blood Gas Base Excess 8.4 mmol/L Blood Gas Oxygen Saturation 90 % Arterial Blood pH 7.34 Arterial Blood Partial 65 mmHg Pressure CO2 Arterial Blood Partial 61 mmHg Pressure O2 Arterial Blood Oxygen Content 13.5 Vol % Arterial Blood 1.3 % Carboxyhemoglobin Arterial Blood Methemoglobin 1.1 % Blood Gas Hemoglobin 10.7 G/DL Oxygen Delivery Device Partial Rebreather Blood Gas Liter Flow 15 L/M Imaging Last 24 hours Impressions Chest X-Ray 10/10/16 0219 Signed Impressions: Service Date/Time: Monday, October 10, 2016 02:36 - CONCLUSION: Bilateral pleural effusions and bibasilar infiltrates. Zachary Perry Jr., MD Objective Remarks GENERAL: Elderly woman on partial rebreather facemask SKIN: Warm and dry. HEAD: Normocephalic. EYES: No scleral icterus. No injection or drainage. NECK: Supple, trachea midline. No JVD or lymphadenopathy. CARDIOVASCULAR: Regular rate and rhythm without murmurs, gallops, or rubs. RESPIRATORY: Breath sounds equal bilaterally. No accessory muscle use. Scattered rhonchi GASTROINTESTINAL: Abdomen soft, non-tender, nondistended. EXTREMITIES: No clubbing cyanosis or edema A/P Assessment and Plan Respiratory failure - COPD exacerbation - Bilateral pulmonary infiltrate - Bilateral pleural effusion - History of pulmonary embolism without active anticoagulation - VQ scan low probability for PE - DuoNeb's - Levaquin - Solu-Medrol -Off BiPAP since 10/11 - Pulmonary consult Hypokalemia - Gentle hydration - Repeat BMP - No EKG changes History of DVT and PE -Full dose Lovenox - VQ scan CHF (grade I diastolic dysfunction) - Strict blood pressure control HTN - When necessary meds Hyperkalemia -Ordered Kayexalate, follow BMP Anemia - Iron deficiency - Ferrous sulfate by mouth Sciatica - Gabapentin - Oxycodone when necessary DVT GI prophylaxis - Lovenox 60 twice a day - Pepcid -Advance by mouth as tolerated Deyvi Back MD Oct 12, 2016 10:31
[2016-10-12 13:23] LABS: BICARBONATE 37.7 MEQ/L (21.0-32.0); POTASSIUM 4.1 MEQ/L (3.5-5.1)
[2016-10-12] MEDS: oxyCODONE/ACETAMINOPHEN 10 MG/325 MG TAB PO PRN ×2 (15:51→21:06)
[2016-10-13] VITALS (15 sets, daily range): BP systolic 145–191; BP diastolic 8–98; PULSE 63–76; RESP 15–30; TEMP 98.1–98.9; O2SAT 88–94
[2016-10-13] MEDS: methylPREDNISolone SOD SUCC 40 MG/1 ML VIAL IV PUSH SCH ×4 (00:19→18:00)
[2016-10-13] MEDS: CHLORHEXIDINE GLUCONATE 2 % 1 PACK (2 CLOTHS) TOP SCH (03:45)
[2016-10-13] MEDS: LEVOFLOXACIN 250 MG PREMIX INJ 50 ML IV SCH (03:45)
[2016-10-13] MEDS: RESP: ALBUTEROL 2.5 MG/IPRATROPIUM 0.5 MG NEB (SCH) INH ×6 (03:49→23:06)
[2016-10-13] MEDS: SODIUM CHLOR 0.9% 1000 ML INJ 1,000 ML IV SCH (04:16)
[2016-10-13 04:43] LABS: AUTOMATED NEUTROPHIL # 5.8 TH/MM3 (1.8-7.7); BASOPHIL % 0.2 % (0.0-2.0); HEMO FLAGS DIFF FINAL; LYMPH % 4.2 % (9.0-44.0); LYMPHOCYTE # 0.3 TH/MM3 (1.0-4.8); MEAN CELL VOLUME 92.4 FL (80.0-100.0); MEAN CORPUSCULAR HEMOGLOBIN 30.2 PG (27.0-34.0); MEAN CORPUSCULAR HGB CONC 32.7 % (32.0-36.0); MONO % 3.5 % (0.0-8.0); NEUT % 92.1 % (16.0-70.0); PLATELET COUNT 181 TH/MM3 (150-450); RED BLOOD COUNT 3.57 MIL/MM3 (4.00-5.30); RED CELL DISTRIBUTION WIDTH 15.4 % (11.6-17.2); WHITE BLOOD COUNT 6.3 TH/MM3 (4.0-11.0)
[2016-10-13 05:13] LABS: ANION GAP 3 MEQ/L (5-15); AST (GOT) 15 U/L (15-37); BICARBONATE 36.6 MEQ/L (21.0-32.0); BLOOD UREA NITROGEN 25 MG/DL (7-18); CHLORIDE 98 MEQ/L (98-107); GLOMERULAR FILTRATION RATE 62 ML/MIN (>89); POTASSIUM 4.6 MEQ/L (3.5-5.1); SODIUM (NA) 138 MEQ/L (136-145)
[2016-10-13 05:16] LABS: ALKALINE PHOSPHATASE 23 U/L (45-117); ALT (GPT) 24 U/L (10-53); TOTAL BILIRUBIN ADULT 0.3 MG/DL (0.2-1.0)
[2016-10-13] MEDS: oxyCODONE/ACETAMINOPHEN 10 MG/325 MG TAB PO PRN ×2 (09:43→22:55)
[2016-10-13] MEDS: FAMOTIDINE 20 MG/2 ML VIAL IV PUSH SCH ×2 (09:43→20:03)
[2016-10-13] MEDS: GABAPENTIN 300 MG CAP PO SCH ×2 (09:43→20:03)
[2016-10-13] MEDS: BUDESONIDE-FORMOTEROL 160/4.5 MCG INHALER INH SCH ×2 (09:43→20:21)
[2016-10-13] MEDS: SODIUM CHLORIDE 0.9% FLUSH 10 ML FLUSH SCH ×2 (09:44→20:04)
[2016-10-13] MEDS: ENOXAPARIN SODIUM 40 MG/0.4 ML SYRINGE SQ SCH (09:44)
[2016-10-13] MEDS ORDERED: BISACODYL 10 MG SUPP RECTAL PRN (10:45)
--- NOTE | 2016-10-13 11:07 | HHI.CCPN ---
Subjective Remarks/Hospital Course 10/10: 76-year-old female presents via EMS for hypoxia and shortness of breath. The patient has a history of COPD and recent pneumonia, history of pulmonary embolism was awakened for breathing treatment and noted to have an oxygen saturation of 48% on 3 L. The patient is chronically on 2-3 L with a normal oxygen saturation between 89-91% according to EMS and the patient. The patient does note increasing shortness of breath which improved with oxygen via nonrebreather. The patient also has a history of pulmonary embolism 2, currently not anticoagulated. She was on Xarelto in the past, but is no longer taking Xarelto. The patient denies any acute swelling of the lower extremities. The patient denies any chest pain, nausea, vomiting, or abdominal pain. She denies any associated fever. 10/11: On BiPAP overnight and was subsequent switched to nonrebreather facemask this morning. 10/12: On partial rebreather O2 since yesterday. Awake and alert, following commands. 10/13: Afebrile. The patient has been on a nonrebreather all night. Plan to transition to high flow nasal cannula this a.m., with change in O2 sat parameters to maintenance of an O2 sat of 90-92%. The patient is on home O2 dependency at 2 L/m nasal cannula. Continue aggressive pulmonary toileting and ordered PT activity out of bed, to chair. Objective Vital Signs Date Time Temp Pulse Resp B/P Pulse Ox O2 Delivery O2 Flow Rate FiO2 10/13/16 10:00 67 10/13/16 08:21 94 Partial Rebreather 15.00 10/13/16 08:00 98.2 24 159/98 10/11/16 03:41 60 Intake and Output 10/12/16 10/12/16 10/13/16 08:00 16:00 00:00 Intake Total 609 ml 669 ml 240 ml Output Total 400 ml 550 ml 300 ml Balance 209 ml 119 ml -60 ml Result Diagram: 10/13/16 0408 10/13/16407 Imaging Last 24 hours Impressions Chest X-Ray 10/10/16 0219 Signed Impressions: Service Date/Time: Monday, October 10, 2016 02:36 - CONCLUSION: Bilateral pleural effusions and bibasilar infiltrates. Zachary Perry Jr., MD Objective Remarks GENERAL: Elderly woman on partial rebreather facemask, alert and oriented pleasantly conversant SKIN: Warm and dry. HEAD: Normocephalic. EYES: No scleral icterus. No injection noted minimal, clear drainage from right eye. NECK: Supple, trachea midline. No JVD or lymphadenopathy. CARDIOVASCULAR: Regular rate and rhythm without murmurs, gallops, or rubs. RESPIRATORY: Breath sounds equal bilaterally. No accessory muscle use. Scattered rhonchi GASTROINTESTINAL: Abdomen soft, non-tender, nondistended. EXTREMITIES: No clubbing cyanosis or edema A/P Assessment and Plan Respiratory failure - COPD exacerbation - Bilateral pulmonary infiltrate - Bilateral pleural effusion - History of pulmonary embolism without active anticoagulation - VQ scan low probability for PE - DuoNeb's scheduled every 4 hours - Levaquin - Solu-Medrol currently 60 mg daily -Off BiPAP since 10/11 - Pulmonary consulted-Dr. Cummings following recommendations Hypokalemia - Gentle hydration - Repeat BMP - No EKG changes History of DVT and PE -Lovenox 40mg q 24 for DVT prophylaxis - VQ scan-low probability CHF (grade I diastolic dysfunction) - Strict blood pressure control HTN - When necessary meds Hyperkalemia -Ordered Kayexalate, follow BMP Anemia - Iron deficiency - Ferrous sulfate by mouth Sciatica - Gabapentin - Oxycodone when necessary DVT GI prophylaxis - Lovenox 40 mg a day - Pepcid -Heart healthy diet -PT evaluation and treat, patient out of bed to chair today Dispo: Discussed with patient and TOOL KEEPER at bedside. Level 3 Physician Krissy Sofia MD Oct 13, 2016 11:07
[2016-10-13] MEDS: MORPHINE SULFATE 4 MG/ML INJ IV PRN (12:22)
[2016-10-13] MEDS: DOCUSATE SODIUM 100 MG CAP PO SCH ×2 (12:22→20:03)
[2016-10-13] MEDS ORDERED: METOPROLOL TARTRATE 5 MG/5 ML VIAL IV PUSH PRN (14:00)
[2016-10-13] MEDS: amLODIPine BESYLATE 5 MG TAB PO SCH (14:01)
[2016-10-13] MEDS ORDERED: hydrALAZINE HCL 20 MG/ML VIAL ONE (16:28)
[2016-10-13] MEDS: ACETAMINOPHEN 325 MG TAB PO PRN (18:00)
--- NOTE | 2016-10-13 20:02 | HHI.PR ---
Subjective Remarks 76 YOWF With Hypercapnoic RF,COPD,HTN On 6LNC Has refused High flow and CPAP Son At Objective Vital Signs Vital Signs Date Time Temp Pulse Resp B/P Pulse Ox O2 Delivery O2 Flow Rate FiO2 10/13/16 19:28 12 10/13/16 18:00 65 10/13/16 16:00 98.5 65 25 191/92 88 10/13/16 16:00 65 10/13/16 14:00 72 10/13/16 12:00 98.9 76 25 165/97 92 10/13/16 12:00 76 10/13/16 11:07 88 High Flow Nasal Cannula 40.00 70 10/13/16 10:00 67 10/13/16 08:21 94 Partial Rebreather 15.00 10/13/16 08:00 98.2 66 24 159/98 92 10/13/16 08:00 66 10/13/16 07:00 92 Partial Non-Rebreather 15.00 Nasal Cannula 10/13/16 06:30 88 Nasal Cannula 6.00 10/13/16 06:00 64 10/13/16 04:00 98.4 64 15 155/74 93 10/13/16 04:00 64 10/13/16 02:00 74 10/13/16 00:00 91 Partial Non-Rebreather 15.00 10/13/16 00:00 63 10/13/16 00:00 98.1 63 21 145/67 91 10/12/16 22:37 21 10/12/16 22:00 66 10/12/16 20:00 79 10/12/16 20:00 98.6 79 24 157/73 88 I/O 10/12/16 10/12/16 10/12/16 10/13/16 10/13/16 10/13/16 07:00 15:00 23:00 07:00 15:00 23:00 Intake Total 609 ml 669 ml 240 ml 290 ml 480 ml Output Total 400 ml 550 ml 300 ml 450 ml 950 ml Balance 209 ml 119 ml -60 ml -160 ml -470 ml Intake Oral 80 ml 480 ml 240 ml 240 ml 480 ml IV Total 529 ml 189 ml 0 ml 50 ml 0 ml Output Urine Total 400 ml 550 ml 300 ml 450 ml 950 ml # Bowel Movements 0 0 0 0 1 Result Diagram: 10/13/1640710/13/16407 Objective Remarks GENERAL: Elderly WF, mild sob SKIN: Warm and dry. HEAD: Normocephalic. EYES: No scleral icterus. No injection or drainage. NECK: Supple, trachea midline. No JVD or lymphadenopathy. CARDIOVASCULAR: Regular rate and rhythm without murmurs, gallops, or rubs. RESPIRATORY: Breath sounds equal bilaterally. No accessory muscle use. Exp rhonchi. GASTROINTESTINAL: Abdomen soft, non-tender, nondistended. MUSCULOSKELETAL: No cyanosis, or edema. BACK: Nontender without obvious deformity. No CVA tenderness. A/P Assessment and Plan hypercapnoic RF COPD exac HTN Anxiety Hypoxia PLAN: Aerosol nebs Solumedrol IV Supplement 02 DW Pt and her son She wants to remain full code and agrees to use high flow or CPAP as needed Arvind Cummings MD Oct 13, 2016 20:02
[2016-10-14] VITALS (11 sets, daily range): BP systolic 129–153; BP diastolic 61–74; PULSE 58–81; RESP 18–28; TEMP 97.7–98.8; O2SAT 85–94
[2016-10-14] MEDS: methylPREDNISolone SOD SUCC 40 MG/1 ML VIAL IV PUSH SCH ×4 (00:34→18:00)
[2016-10-14] MEDS: LEVOFLOXACIN 250 MG PREMIX INJ 50 ML IV SCH (02:58)
[2016-10-14] MEDS: RESP: ALBUTEROL 2.5 MG/IPRATROPIUM 0.5 MG NEB (SCH) INH ×7 (03:56→23:22)
[2016-10-14] MEDS: CHLORHEXIDINE GLUCONATE 2 % 1 PACK (2 CLOTHS) TOP SCH (04:00)
[2016-10-14] MEDS: MORPHINE SULFATE 4 MG/ML INJ IV PRN (04:25)
[2016-10-14] MEDS ORDERED: ASPIRIN 81 MG CHEW TAB CHEW ONE (05:15)
[2016-10-14 05:17] LABS: BICARBONATE 36.8 MEQ/L (21.0-32.0); MAGNESIUM 2.5 MG/DL (1.5-2.5); POTASSIUM 4.4 MEQ/L (3.5-5.1)
[2016-10-14] MEDS ORDERED: hydrALAZINE HCL 20 MG/ML VIAL ONE (07:50)
[2016-10-14] MEDS: hydrALAZINE HCL 20 MG/ML VIAL IV PRN (07:51)
--- NOTE | 2016-10-14 08:35 | EKG ---
Date Performed: 10/14/2016 Time Performed: 04:30:36 PTAGE: 76 years EKG: Sinus rhythm Left axis deviation Right bundle branch block Possible lateral infarct - age undetermined Possible a nterior infarct - age undetermined Low QRS voltages in precordial leads Abnormal ECG NO PREVIOUS TRACING DOCTOR: Dalton Reno Interpretating Date/Time 10/14/2016 08:33:24
[2016-10-14] MEDS: amLODIPine BESYLATE 5 MG TAB PO SCH (09:00)
[2016-10-14] MEDS: FAMOTIDINE 20 MG/2 ML VIAL IV PUSH SCH ×2 (09:00→21:09)
[2016-10-14] MEDS: ENOXAPARIN SODIUM 40 MG/0.4 ML SYRINGE SQ SCH (09:00)
[2016-10-14] MEDS: DOCUSATE SODIUM 100 MG CAP PO SCH ×2 (09:00→21:00)
[2016-10-14] MEDS: BUDESONIDE-FORMOTEROL 160/4.5 MCG INHALER INH SCH ×2 (09:00→21:00)
[2016-10-14] MEDS: SODIUM CHLORIDE 0.9% FLUSH 10 ML FLUSH SCH ×2 (09:00→21:00)
[2016-10-14] MEDS: GABAPENTIN 300 MG CAP PO SCH ×2 (09:00→21:09)
[2016-10-14] MEDS: SENNOSIDES SYRUP 8.8 MG/5 ML CUP PO SCH (11:00)
[2016-10-14] MEDS: oxyCODONE/ACETAMINOPHEN 10 MG/325 MG TAB PO PRN ×2 (11:11→21:11)
--- NOTE | 2016-10-14 12:59 | PD.CONS ---
History of Present Illness Service Ophthalmology Consult Requested By Reason for Consult decreased vision right eye Primary Care Physician Fernanda Fox MD Diagnoses: History of Present Illness 76 yo F with h/o COPD, PE presented to ED with hypoxia and shortness of breath. Ophthalmology consulted to evaluate decreased vision. She noticed a few months ago that her right eye vision was getting blurry. It has progressively gotten worse over this time. Ocular history significant for cataract surgery OU a few years ago. Past Family Social History Allergies: Coded Allergies: Azithromycin (Verified Allergy, Severe, STOMACH CRAMPS, 10/10/16) Penicillin (Verified Allergy, Severe, 10/10/16) Physical Exam Vital Signs Vital Signs Date Time Temp Pulse Resp B/P Pulse Ox O2 Delivery O2 Flow Rate FiO2 10/14/16 12:00 75 10/14/16 12:00 98.1 75 18 129/61 88 10/14/16 08:00 67 10/14/16 08:00 98.4 67 20 145/70 90 10/14/16 08:00 88 High Flow Nasal Cannula 20.00 70 10/14/16 06:00 63 10/14/16 05:02 15 10/14/16 04:30 79 10/14/16 04:00 97.7 63 21 153/73 94 10/14/16 04:00 63 10/14/16 02:00 81 10/14/16 00:00 98.4 74 24 147/73 93 10/14/16 00:00 74 10/13/16 22:00 73 10/13/16 20:26 88 Nasal Cannula 6.00 10/13/16 20:00 65 10/13/16 20:00 98.5 76 30 165/8 88 10/13/16 19:28 12 10/13/16 19:00 93 Nasal Cannula 6.00 10/13/16 18:00 65 10/13/16 16:00 98.5 65 25 191/92 88 10/13/16 16:00 65 10/13/16 14:00 72 Physical Exam Va cc at near OD 20/400, OS 20/25 EOM full OU, no diplopia CVF full OU Pupils 2-1 no APD OU IOP normal to palpation OU Anterior exam OD - normal eyelid, C/S W&Q, K clear, AC deep, pupil round, PCIOL, PCO? OS - normal eyelid, C/S W&Q, K clear, AC deep, pupil round, PCIOL Dilated exam OD - ON s/p/f, ves normal, vit clear, retina flat OS - ON s/p/f, ves normal, vit clear, retina flat Laboratory Laboratory Tests Test 10/14/16 03:55 Sodium Level 139 Potassium Level 4.4 Chloride Level 98 Carbon Dioxide Level 36.8 Anion Gap 4 Blood Urea Nitrogen 27 Creatinine 0.99 Estimat Glomerular Filtration 54 Rate Random Glucose 130 Calcium Level 8.3 Phosphorus Level 2.1 Magnesium Level 2.5 Total Creatine Kinase 59 Troponin I 0.06 Date/Time Procedure Status Source Growth 10/10/16 03:10 Aerobic Blood Culture - Preliminary Resulted Blood Peripheral NO GROWTH IN 4 DAYS 10/10/16 03:10 Anaerobic Blood Culture - Preliminary Resulted Blood Peripheral NO GROWTH IN 4 DAYS Result Diagram: 10/13/16 0408 10/14/16 0355 Assessment and Plan Problem List: (1) Posterior capsular opacification of right eye, obscuring vision Status: Acute Plan: Most likely cause of gradual decreased vision OD. Will need yag laser to remove this opacification. Not urgent. Follow up with ophthalmology as an outpatient once discharged. Flavia Bills MD Oct 14, 2016 12:58
--- NOTE | 2016-10-14 13:22 | EKG ---
Date Performed: 10/14/2016 Time Performed: 11:23:42 PTAGE: 76 years EKG: Sinus rhythm WITH OCCASIONAL SUPRAVENTRICULAR PREMATURE COMPLEXES LEFT AXIS DEVIATION RIGHT BUNDLE BRANCH BLOCK P OSSIBLE ANTERIOR MYOCARDIAL INFARCTION , OF INDETERMINATE AGE ABNORMAL ECG PREVIOUS TRACING : 10/14/2016 04.30 No significant change from previous tracing noted. DOCTOR: Dalton Reno Interpretating Date/Time 10/14/2016 13:20:21
--- NOTE | 2016-10-14 14:28 | HHI.CCPN ---
Subjective Remarks/Hospital Course 10/10: 76-year-old female presents via EMS for hypoxia and shortness of breath. The patient has a history of COPD and recent pneumonia, history of pulmonary embolism was awakened for breathing treatment and noted to have an oxygen saturation of 48% on 3 L. The patient is chronically on 2-3 L with a normal oxygen saturation between 89-91% according to EMS and the patient. The patient does note increasing shortness of breath which improved with oxygen via nonrebreather. The patient also has a history of pulmonary embolism 2, currently not anticoagulated. She was on Xarelto in the past, but is no longer taking Xarelto. The patient denies any acute swelling of the lower extremities. The patient denies any chest pain, nausea, vomiting, or abdominal pain. She denies any associated fever. 10/11: On BiPAP overnight and was subsequent switched to nonrebreather facemask this morning. 10/12: On partial rebreather O2 since yesterday. Awake and alert, following commands. 10/13: Afebrile. The patient has been on a nonrebreather all night. Plan to transition to high flow nasal cannula this a.m., with change in O2 sat parameters to maintenance of an O2 sat of 90-92%. The patient is on home O2 dependency at 2 L/m nasal cannula. Continue aggressive pulmonary toileting and ordered PT activity out of bed, to chair. 10/14: Early this a.m. approximately 3:00 the patient had an episode of angina. EKG was obtained which revealed basically unchanged right bundle shira block, [place] age undetermined. Admission EKG 10/10 showed right bundle shira block, left anterior fascicular block possible anterior [place]. The patient was given morphine , serial troponins were obtained, with resolution of symptoms. Initial troponin slightly elevated 0.06, subsequent troponin level pending this afternoon. The patient has been up out of bed ambulating around the room with walker without any difficulty. The patient remains on high flow nasal cannula at 70% maintaining an O2 sat of 89%. Of note the patient is not dyspneic and carry on a full conversation denies any respiratory distress with a sat of 89%. Objective Vital Signs Date Time Temp Pulse Resp B/P Pulse Ox O2 Delivery O2 Flow Rate FiO2 10/14/16 12:00 75 10/14/16 12:00 98.1 18 129/61 88 10/14/16 08:00 High Flow Nasal Cannula 20.00 70 Intake and Output 10/13/16 10/13/16 10/14/16 08:00 16:00 00:00 Intake Total 290 ml 480 ml 120 ml Output Total 450 ml 950 ml 1720 ml Balance -160 ml -470 ml -1600 ml Result Diagram: 10/13/16 0408 10/14/16 0355 Imaging Last 24 hours Impressions Chest X-Ray 10/10/169 Signed Impressions: Service Date/Time: Monday, October 10, 2016 02:36 - CONCLUSION: Bilateral pleural effusions and bibasilar infiltrates. Zachary Perry Jr., MD Objective Remarks GENERAL: Elderly woman on high flow nasal cannula, in no respiratory distress SKIN: Warm and dry. HEAD: Normocephalic. EYES: No scleral icterus. No injection noted minimal, clear drainage from right eye. NECK: Supple, trachea midline. No JVD or lymphadenopathy. CARDIOVASCULAR: Regular rate and rhythm without murmurs, gallops, or rubs. RESPIRATORY: Breath sounds equal bilaterally. No accessory muscle use. Scattered rhonchi throughout GASTROINTESTINAL: Abdomen soft, non-tender, nondistended. EXTREMITIES: No clubbing cyanosis or edema A/P Assessment and Plan Respiratory failure - COPD exacerbation - Bilateral pulmonary infiltrate - Bilateral pleural effusion - History of pulmonary embolism without active anticoagulation - VQ scan low probability for PE - DuoNeb's scheduled every 4 hours - Levaquin - Solu-Medrol currently 60 mg daily -Off BiPAP since 10/11 - Pulmonary consulted-Dr. Cummings following recommendations Angina -Initial troponin 0.06 -F/U trend, begin beta sumeet therapy -Obtain echo Hypokalemia-resolved - Gentle hydration - Replete electrolytes per ICU protocol - No EKG changes History of DVT and PE -Lovenox 40mg q 24 for DVT prophylaxis - VQ scan-low probability CHF (grade I diastolic dysfunction) - Strict blood pressure control -Initiate beta sumeet-metoprolol, PO HTN -Hydralazine 20 mg every 6 hours when necessary for systolic blood pressure greater than 160mmHg, metoprolol IV 2.5 mg every 6 hours when necessary systolic blood pressure greater than 160, heart rate greater than 100 Hyperkalemia-resolved -Continue to monitor BMP Anemia - Iron deficiency - Ferrous sulfate by mouth daily Sciatica - Gabapentin - Oxycodone when necessary DVT GI prophylaxis - Lovenox 40 mg a day - Pepcid -Heart healthy diet -PT evaluation and treat, patient out of bed to chair , and ambulating around the room with rolling walker Dispo: Discussed with patient and SPANISH LANGUAGE LECTURER at bedside. Level 3 Physician Krissy Sofia MD Oct 14, 2016 14:28
--- NOTE | 2016-10-14 19:01 | EC ---
Study Study Date:10/14/2016 STUDY CONCLUSIONS SUMMARY - Left ventricle: The cavity size was normal. Wall thickness was increased in a pattern of moderate LVH. Systolic function was normal. The estimated ejection fraction was in the range of 60% to 65%. Wall motion was normal; there were no regional wall motion abnormalities. - Aortic valve: Valve area: 2.56cm^2 (Vmax). - Mitral valve: Mildly calcified annulus. - Left atrium: The atrium was mildly dilated. If LV function is below 40, please consider prescribing an ACEI or ARB or document rationale for non-use. PROCEDURE DATA STUDY STATUS: Elective. Procedure: Transthoracic echocardiography. Image quality was good. Scanning was performed from the parasternal, apical, and subcostal acoustic windows. Study completion: The patient tolerated the procedure well. Transthoracic echocardiography. M-mode, complete 2D, complete spectral Doppler, and color Doppler. Height: Height: 63in. Weight: Weight: 153.7lb. Body mass index: BMI: 27.3kg/m^2. Body surface area: BSA: 1.73m^2. Patient status: Inpatient. CARDIAC ANATOMY LEFT VENTRICLE: The cavity size was normal. Wall thickness was increased in a pattern of moderate LVH. Systolic function was normal. The estimated ejection fraction was in the range of 60% to 65%. Wall motion was normal; there were no regional wall motion abnormalities. AORTIC VALVE: Trileaflet; normal thickness leaflets. Doppler: Transvalvular velocity was within the normal range. There was no stenosis. No regurgitation. Valve area: 2.56cm^2 (Vmax). Indexed valve area: 1.48cm^2/m^2 (Vmax). Peak gradient: 15mm Hg (S). AORTA: Aortic root: The aortic root was normal in size. MITRAL VALVE: Mildly calcified annulus. Doppler: Transvalvular velocity was within the normal range. There was no evidence for stenosis. Trace to mild regurgitation. Valve area by pressure half-time: 3.14cm^2. Indexed valve area by pressure half-time: 1.82cm^2/m^2. Mean gradient: 4mm Hg (D). Peak gradient: 14mm Hg (D). LEFT ATRIUM: The atrium was mildly dilated. RIGHT VENTRICLE: The cavity size was normal. Wall thickness was normal. PULMONIC VALVE: Doppler: Transvalvular velocity was within the normal range. There was no evidence for stenosis. No regurgitation. TRICUSPID VALVE: Structurally normal valve. Doppler: Transvalvular velocity was within the normal range. No regurgitation. Peak gradient: 22mm Hg (D). PULMONARY ARTERY: The main pulmonary artery was normal-sized. Systolic pressure was within the normal range. RIGHT ATRIUM: The atrium was normal in size. PERICARDIUM: There was no pericardial effusion. SYSTEMIC VEINS: Inferior vena cava: The vessel was normal in size. Patient weight: 153.7lb _Ejection fraction:_ 65-75% _Fractional shortening:_ 32% up to 5Kg 5-11.5Kg 11.6-22.9Kg 23-45Kg 45-57Kg Aortic Root 7-13 <17 13-22 17-27 17-27 LA diam 6-13 <23 24-38 33-47 37-40 RVID 10-17 7-15 7-15 7-18 8-17 LVIDd 12-22 <32 24-38 33-47 37-40 LVPW 2-4 3-6 5-7 6-8 7-8 IVS 2-4 3-6 5-7 6-8 7-8 BASIC MEASUREMENTS ADULT NORMAL Left ventricle LV internal dimension, ED, chordal 44.6 mm 43-52 level, PLAX LV internal dimension, ES, chordal 27.4 mm 23-38 level, PLAX Fractional shortening, chordal level, 39 % >29 PLAX LV posterior wall thickness, ED 13.7 mm IVS/LVPW ratio, ED 1 <1.3 Ventricular septum Septal thickness, ED 13.7 mm Aortic valve Leaflet separation 19 mm 15-26 Aorta Root diameter, ED 36 mm Left atrium Anterior-posterior dimension 42 mm Anterior-posterior dimension index *2.43 cm/m^2 <2.2 Right ventricle RV internal dimension, ED, PLAX 30.8 mm 19-38 BASIC MEASUREMENTS ADULT NORMAL Aortic valve Leaflet separation 19 mm 15-26 Aorta Root diameter, ED 36 mm 20-37 DOPPLER MEASUREMENTS ADULT NORMAL Aortic valve Peak velocity, S 195 cm/s VTI, S 39 cm Peak gradient, S 15 mm Hg Valve area, Vmax 2.56 cm^2 Valve area index, Vmax 1.48 cm^2/m^2 Mitral valve Peak E-wave velocity 94.9 cm/s Peak A-wave velocity 159 cm/s Mean velocity, D 89.4 cm/s Pressure half-time 70 ms Mean gradient, D 4 mm Hg Peak gradient, D 14 mm Hg Peak E/A ratio 0.6 Valve area, pressure half-time 3.14 cm^2 Valve area index, pressure half-time 1.82 cm^2/m^2 Tricuspid valve Peak gradient, D 22 mm Hg Maximal inflow velocity 232 cm/s Pulmonic valve Peak velocity, S 109 cm/s LEGEND: Mean values are shown as u=mean value. Asterisk (*) rnadall values outside specified normal range. Prepared and signed by Rachelle Schreiber [id number]
--- NOTE | 2016-10-14 19:28 | HHI.PR ---
Subjective Remarks 76 YOWF With Hypercapnoic RF,COPD,HTN On High flow 02 Feels better Appetite poor Objective Vital Signs Vital Signs Date Time Temp Pulse Resp B/P Pulse Ox O2 Delivery O2 Flow Rate FiO2 10/14/16 17:45 91 10/14/16 16:44 Partial Non-Rebreather 13.00 10/14/16 16:00 77 10/14/16 16:00 77 21 148/67 85 10/14/16 12:11 18 10/14/16 12:00 75 10/14/16 12:00 98.1 75 18 129/61 88 10/14/16 08:00 67 10/14/16 08:00 98.4 67 20 145/70 90 10/14/16 08:00 88 High Flow Nasal Cannula 20.00 70 10/14/16 06:00 63 10/14/16 05:02 15 10/14/16 04:30 79 10/14/16 04:00 97.7 63 21 153/73 94 10/14/16 04:00 63 10/14/16 02:00 81 10/14/16 00:00 98.4 74 24 147/73 93 10/14/16 00:00 74 10/13/16 22:00 73 10/13/16 20:26 88 Nasal Cannula 6.00 10/13/16 20:00 65 10/13/16 20:00 98.5 76 30 165/8 88 10/13/16 19:28 12 I/O 10/13/16 10/13/16 10/13/16 10/14/16 10/14/16 10/14/16 07:00 15:00 23:00 07:00 15:00 23:00 Intake Total 290 ml 480 ml 120 ml 313 ml 360 ml 180 ml Output Total 450 ml 950 ml 1720 ml 550 ml 300 ml Balance -160 ml -470 ml -1600 ml -237 ml 60 ml 180 ml Intake Oral 240 ml 480 ml 120 ml 240 ml 360 ml 180 ml IV Total 50 ml 0 ml 0 ml 73 ml Output Urine Total 450 ml 950 ml 1720 ml 550 ml 300 ml # Bowel Movements 0 1 0 1 Result Diagram: 10/13/16 0408 10/14/16 0355 Objective Remarks GENERAL: Elderly WF, mild sob SKIN: Warm and dry. HEAD: Normocephalic. EYES: No scleral icterus. No injection or drainage. NECK: Supple, trachea midline. No JVD or lymphadenopathy. CARDIOVASCULAR: Regular rate and rhythm without murmurs, gallops, or rubs. RESPIRATORY: Breath sounds equal bilaterally. No accessory muscle use. Exp rhonchi. GASTROINTESTINAL: Abdomen soft, non-tender, nondistended. MUSCULOSKELETAL: No cyanosis, or edema. BACK: Nontender without obvious deformity. No CVA tenderness. A/P Assessment and Plan hypercapnoic RF COPD exac HTN Anxiety Hypoxia PLAN: Aerosol nebs Solumedrol IV Supplement 02, cont high flow DW Pt CPAP prn Arvind Cummings MD Oct 14, 2016 19:28
[2016-10-14] MEDS ORDERED: PILL SPLITTER OTHER PRN (21:00)
[2016-10-14] MEDS: METOPROLOL TARTRATE 25 MG TAB PO SCH (21:09)
[2016-10-15] VITALS (14 sets, daily range): BP systolic 127–163; BP diastolic 64–82; PULSE 60–82; RESP 17–29; TEMP 89.4–98.9; O2SAT 87–96
[2016-10-15] MEDS: methylPREDNISolone SOD SUCC 40 MG/1 ML VIAL IV PUSH SCH ×5 (01:33→23:59)
[2016-10-15] MEDS: MORPHINE SULFATE 4 MG/ML INJ IV PRN (01:39)
[2016-10-15] MEDS: LEVOFLOXACIN 250 MG PREMIX INJ 50 ML IV SCH (02:43)
[2016-10-15] MEDS: CHLORHEXIDINE GLUCONATE 2 % 1 PACK (2 CLOTHS) TOP SCH (04:00)
[2016-10-15] MEDS: RESP: ALBUTEROL 2.5 MG/IPRATROPIUM 0.5 MG NEB (SCH) INH ×5 (04:23→20:13)
[2016-10-15] MEDS: hydrALAZINE HCL 20 MG/ML VIAL IV PRN ×2 (04:29→21:23)
[2016-10-15 04:45] LABS: HEMATOCRIT 36.2 % (35.0-46.0); MEAN CELL VOLUME 93.5 FL (80.0-100.0); MEAN CORPUSCULAR HEMOGLOBIN 29.8 PG (27.0-34.0); MEAN CORPUSCULAR HGB CONC 31.9 % (32.0-36.0); PLATELET COUNT 157 TH/MM3 (150-450); RED BLOOD COUNT 3.88 MIL/MM3 (4.00-5.30); REVIEW FLAG FINAL; WHITE BLOOD COUNT 6.6 TH/MM3 (4.0-11.0)
[2016-10-15 04:59] LABS: BICARBONATE 35.8 MEQ/L (21.0-32.0); MAGNESIUM 2.5 MG/DL (1.5-2.5); POTASSIUM 4.6 MEQ/L (3.5-5.1)
[2016-10-15] MEDS: GABAPENTIN 300 MG CAP PO SCH ×2 (08:16→19:43)
[2016-10-15] MEDS: SODIUM CHLORIDE 0.9% FLUSH 10 ML FLUSH SCH ×2 (08:16→19:43)
[2016-10-15] MEDS: SENNOSIDES SYRUP 8.8 MG/5 ML CUP PO SCH ×2 (08:16→08:39)
[2016-10-15] MEDS: METOPROLOL TARTRATE 25 MG TAB PO SCH ×2 (08:17→19:44)
[2016-10-15] MEDS: ENOXAPARIN SODIUM 40 MG/0.4 ML SYRINGE SQ SCH (08:17)
[2016-10-15] MEDS: DOCUSATE SODIUM 100 MG CAP PO SCH ×2 (08:18→19:43)
[2016-10-15] MEDS: FAMOTIDINE 20 MG/2 ML VIAL IV PUSH SCH ×2 (08:18→19:43)
[2016-10-15] MEDS: amLODIPine BESYLATE 5 MG TAB PO SCH (08:18)
[2016-10-15] MEDS: BUDESONIDE-FORMOTEROL 160/4.5 MCG INHALER INH SCH ×2 (08:19→19:44)
[2016-10-15] MEDS: oxyCODONE/ACETAMINOPHEN 10 MG/325 MG TAB PO PRN (11:08)
--- NOTE | 2016-10-15 11:36 | HHI.CCPN ---
Subjective Remarks/Hospital Course 10/10: 76-year-old female presents via EMS for hypoxia and shortness of breath. The patient has a history of COPD and recent pneumonia, history of pulmonary embolism was awakened for breathing treatment and noted to have an oxygen saturation of 48% on 3 L. The patient is chronically on 2-3 L with a normal oxygen saturation between 89-91% according to EMS and the patient. The patient does note increasing shortness of breath which improved with oxygen via nonrebreather. The patient also has a history of pulmonary embolism 2, currently not anticoagulated. She was on Xarelto in the past, but is no longer taking Xarelto. The patient denies any acute swelling of the lower extremities. The patient denies any chest pain, nausea, vomiting, or abdominal pain. She denies any associated fever. 10/11: On BiPAP overnight and was subsequent switched to nonrebreather facemask this morning. 10/12: On partial rebreather O2 since yesterday. Awake and alert, following commands. 10/13: Afebrile. The patient has been on a nonrebreather all night. Plan to transition to high flow nasal cannula this a.m., with change in O2 sat parameters to maintenance of an O2 sat of 90-92%. The patient is on home O2 dependency at 2 L/m nasal cannula. Continue aggressive pulmonary toileting and ordered PT activity out of bed, to chair. 10/14: Early this a.m. approximately 3:00 the patient had an episode of angina. EKG was obtained which revealed basically unchanged right bundle shira block, [place] age undetermined. 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 The patient was given morphine , serial troponins were obtained, with resolution of symptoms. Initial troponin slightly elevated 0.06, subsequent troponin level pending this afternoon. The patient has been up out of bed ambulating around the room with walker without any difficulty. The patient remains on high flow nasal cannula at 70% maintaining an O2 sat of 89%. Of note the patient is not dyspneic and carry on a full conversation denies any respiratory distress with a sat of 89%. 10/18: The patient continues to require FiO2 of 70%. The patient has been advanced out of bed to chair and ambulating around hospital room without difficulty. Unable to wean sat will continue aggressive pulmonary toileting. Echo obtained no PASP elevation noted. Objective Vital Signs Date Time Temp Pulse Resp B/P Pulse Ox O2 Delivery O2 Flow Rate FiO2 10/15/16 10:00 62 10/15/16 08:00 98.9 29 132/70 90 10/15/16 07:36 High Flow Nasal Cannula 20.00 70 Intake and Output 10/14/16 10/14/16 10/14/16 07:59 15:59 23:59 Intake Total 313 ml 360 ml 380 ml Output Total 550 ml 300 ml 325 ml Balance -237 ml 60 ml 55 ml Result Diagram: 10/15/16 0343 10/15/16 0343 Imaging Last 24 hours Impressions Chest X-Ray 10/10/16218 Signed Impressions: Service Date/Time: Monday, October 10, 2016 02:36 - CONCLUSION: Bilateral pleural effusions and bibasilar infiltrates. Zachary Perry Jr., MD Objective Remarks GENERAL: Elderly woman on high flow nasal cannula, in no respiratory distress SKIN: Warm and dry. HEAD: Normocephalic. EYES: No scleral icterus. No injection noted minimal, clear drainage from right eye. NECK: Supple, trachea midline. No JVD or lymphadenopathy. CARDIOVASCULAR: Regular rate and rhythm without murmurs, gallops, or rubs. RESPIRATORY: Breath sounds equal bilaterally. No accessory muscle use. Scattered rhonchi throughout GASTROINTESTINAL: Abdomen soft, non-tender, nondistended. EXTREMITIES: No clubbing cyanosis or edema A/P Assessment and Plan Respiratory failure - COPD exacerbation - Bilateral pulmonary infiltrate - Bilateral pleural effusion - History of pulmonary embolism without active anticoagulation - VQ scan low probability for PE - DuoNeb's scheduled every 4 hours - Levaquin - Solu-Medrol currently 60 mg daily -Off BiPAP since 10/11 - Pulmonary consulted-Dr. Cummings following recommendations Angina -Initial troponin 0.06, trended back down to 0.05 -F/U trend, begin beta sumeet therapy -10/14-ECHO ejection fraction 60-65%, no RWMA, moderate LVH, left atrium mildly dilated Hypokalemia-resolved - Gentle hydration - Replete electrolytes per ICU protocol - No EKG changes History of DVT and PE -Lovenox 40mg q 24 for DVT prophylaxis - VQ scan-low probability CHF (grade I diastolic dysfunction) - Strict blood pressure control -Initiate beta sumeet-metoprolol, PO HTN -Hydralazine 20 mg every 6 hours when necessary for systolic blood pressure greater than 160mmHg, -Metoprolol IV 2.5 mg every 6 hours when necessary systolic blood pressure greater than 160, heart rate greater than 100 Hyperkalemia-resolved -Continue to monitor BMP Anemia - Iron deficiency - Ferrous sulfate by mouth daily Sciatica - Gabapentin - Oxycodone when necessary DVT GI prophylaxis - Lovenox 40 mg a day - Pepcid -Heart healthy diet -PT evaluation and treat, patient out of bed to chair , and ambulating around the room with rolling walker Dispo: Discussed with patient and HYDRAULIC AND PLUMBING INSTALLER at bedside. Level 3 Physician Krissy Sofia MD Oct 15, 2016 11:36
--- NOTE | 2016-10-15 19:43 | HHI.PR ---
Subjective Remarks 76 YOWF With Hypercapnoic RF,COPD,HTN On High flow 02, fi02 70% Feels better Appetite poor Worked with PT Objective Vital Signs Vital Signs Date Time Temp Pulse Resp B/P Pulse Ox O2 Delivery O2 Flow Rate FiO2 10/15/16 19:00 89 Nasal Cannula 70 10/15/16 18:05 77 10/15/16 16:02 89.4 71 24 150/75 90 10/15/16 16:02 71 10/15/16 14:00 62 10/15/16 12:00 98.8 62 28 127/64 91 10/15/16 12:00 62 10/15/16 10:00 62 10/15/16 08:00 98.9 81 29 132/70 90 10/15/16 08:00 82 10/15/16 07:36 87 High Flow Nasal Cannula 20.00 70 10/15/16 07:00 Nasal Cannula 70 10/15/16 06:00 69 10/15/16 04:00 65 10/15/16 04:00 98.3 65 26 162/81 96 10/15/16 02:00 62 10/15/16 00:00 60 10/15/16 00:00 98.4 60 17 163/70 91 10/14/16 22:00 58 10/14/16 20:00 72 10/14/16 20:00 98.8 72 28 145/74 89 I/O 10/14/16 10/14/16 10/14/16 10/15/16 10/15/16 10/15/16 07:00 15:00 23:00 07:00 15:00 23:00 Intake Total 313 ml 360 ml 380 ml 310 ml 674 ml Output Total 550 ml 300 ml 325 ml 400 ml 250 ml Balance -237 ml 60 ml 55 ml -90 ml 424 ml Intake Oral 240 ml 360 ml 380 ml 250 ml 660 ml IV Total 73 ml 0 ml 60 ml 14 ml Output Urine Total 550 ml 300 ml 325 ml 400 ml 250 ml # Bowel Movements 0 1 0 0 0 Result Diagram: 10/15/1634210/15/16342 Objective Remarks GENERAL: Elderly WF, mild sob SKIN: Warm and dry. HEAD: Normocephalic. EYES: No scleral icterus. No injection or drainage. NECK: Supple, trachea midline. No JVD or lymphadenopathy. CARDIOVASCULAR: Regular rate and rhythm without murmurs, gallops, or rubs. RESPIRATORY: Breath sounds equal bilaterally. No accessory muscle use. Exp rhonchi. GASTROINTESTINAL: Abdomen soft, non-tender, nondistended. MUSCULOSKELETAL: No cyanosis, or edema. BACK: Nontender without obvious deformity. No CVA tenderness. A/P Assessment and Plan hypercapnoic RF COPD exac HTN Anxiety Hypoxia PLAN: Aerosol nebs Solumedrol IV Supplement 02, cont high flow DW Pt CPAP prn DW p[t And family at BS. Arvind Cummings MD Oct 15, 2016 19:43
[2016-10-16] VITALS (15 sets, daily range): BP systolic 137–170; BP diastolic 66–83; PULSE 54–70; RESP 15–28; TEMP 98.1–98.8; O2SAT 60–96
[2016-10-16] MEDS: oxyCODONE/ACETAMINOPHEN 10 MG/325 MG TAB PO PRN ×3 (00:04→15:53)
[2016-10-16] MEDS: LEVOFLOXACIN 250 MG PREMIX INJ 50 ML IV SCH (02:20)
[2016-10-16] MEDS: CHLORHEXIDINE GLUCONATE 2 % 1 PACK (2 CLOTHS) TOP SCH (03:06)
[2016-10-16] MEDS: RESP: ALBUTEROL 2.5 MG/IPRATROPIUM 0.5 MG NEB (SCH) INH ×7 (03:49→23:38)
--- NOTE | 2016-10-16 04:43 | RADRPT ---
EXAM DATE/TIME: 10/16/2016 03:52 [facility] COMPARISON: CHEST SINGLE AP, October 11, 2016, 6:01. INDICATIONS : Respiratory failure. MEDICAL HISTORY : Chronic obstructive pulmonary disease. Hypercholesterolemia. SURGICAL HISTORY : None. ENCOUNTER: Subsequent ACUITY: 1 month PAIN SCORE: Non-responsive. LOCATION: Bilateral chest FINDINGS: There continues to be increased interstitial markings bilaterally suggestive of some pulmonary edema. There is improved aeration of the lower lungs suggestive of improving atelectasis. The heart size is enlarged but stable. There is no evidence of pneumothorax. CONCLUSION: 1. Improving bibasilar atelectasis. 2. Mild Improving pulmonary edema. Alber Prasad MD on October 16, 2016 at 4:40 Board Certified Radiologist. This report was verified electronically.
[2016-10-16] MEDS: methylPREDNISolone SOD SUCC 40 MG/1 ML VIAL IV PUSH SCH ×4 (04:58→23:54)
[2016-10-16] MEDS: hydrALAZINE HCL 20 MG/ML VIAL IV PRN ×2 (06:24→22:07)
[2016-10-16] MEDS: DOCUSATE SODIUM 100 MG CAP PO SCH ×2 (08:23→20:16)
[2016-10-16] MEDS: SENNOSIDES SYRUP 8.8 MG/5 ML CUP PO SCH (08:23)
[2016-10-16] MEDS: FAMOTIDINE 20 MG/2 ML VIAL IV PUSH SCH ×2 (08:23→20:17)
[2016-10-16] MEDS: ENOXAPARIN SODIUM 40 MG/0.4 ML SYRINGE SQ SCH (08:23)
[2016-10-16] MEDS: GABAPENTIN 300 MG CAP PO SCH ×2 (08:23→20:17)
[2016-10-16] MEDS: amLODIPine BESYLATE 5 MG TAB PO SCH (08:23)
[2016-10-16] MEDS: METOPROLOL TARTRATE 25 MG TAB PO SCH ×2 (08:23→20:17)
[2016-10-16] MEDS: SODIUM CHLORIDE 0.9% FLUSH 10 ML FLUSH SCH ×2 (08:29→20:17)
[2016-10-16] MEDS: BUDESONIDE-FORMOTEROL 160/4.5 MCG INHALER INH SCH ×2 (08:29→20:17)
--- NOTE | 2016-10-16 16:23 | HHI.CCPN ---
Subjective Remarks/Hospital Course 10/10: 76-year-old female presents via EMS for hypoxia and shortness of breath. The patient has a history of COPD and recent pneumonia, history of pulmonary embolism was awakened for breathing treatment and noted to have an oxygen saturation of 48% on 3 L. The patient is chronically on 2-3 L with a normal oxygen saturation between 89-91% according to EMS and the patient. The patient does note increasing shortness of breath which improved with oxygen via nonrebreather. The patient also has a history of pulmonary embolism 2, currently not anticoagulated. She was on Xarelto in the past, but is no longer taking Xarelto. The patient denies any acute swelling of the lower extremities. The patient denies any chest pain, nausea, vomiting, or abdominal pain. She denies any associated fever. 10/11: On BiPAP overnight and was subsequent switched to nonrebreather facemask this morning. 10/12: On partial rebreather O2 since yesterday. Awake and alert, following commands. 10/13: Afebrile. The patient has been on a nonrebreather all night. Plan to transition to high flow nasal cannula this a.m., with change in O2 sat parameters to maintenance of an O2 sat of 90-92%. The patient is on home O2 dependency at 2 L/m nasal cannula. Continue aggressive pulmonary toileting and ordered PT activity out of bed, to chair. 10/14: Early this a.m. approximately 3:00 the patient had an episode of angina. EKG was obtained which revealed basically unchanged right bundle shira block, NM age undetermined. 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 The patient was given morphine , serial troponins were obtained, with resolution of symptoms. Initial troponin slightly elevated 0.06, subsequent troponin level pending this afternoon. The patient has been up out of bed ambulating around the room with walker without any difficulty. The patient remains on high flow nasal cannula at 70% maintaining an O2 sat of 89%. Of note the patient is not dyspneic and carry on a full conversation denies any respiratory distress with a sat of 89%. 10/15: The patient continues to require FiO2 of 70%. The patient has been advanced out of bed to chair and ambulating around hospital room without difficulty. Unable to wean sat will continue aggressive pulmonary toileting. Echo obtained no PASP elevation noted. 10/16: The patient continues on FiO2 remained 70%-nasal cannula interchangeably with partial nonrebreather. Activity level increase out of bed and ambulation around the room. Aggressive pulmonary toileting continues. Chest x-ray obtained this morning showing mild pulmonary edema, Lasix 20 mg IV 1 dose initiated. Objective Vital Signs Date Time Temp Pulse Resp B/P Pulse Ox O2 Delivery O2 Flow Rate FiO2 10/16/16 15:12 59 10/16/16 12:00 98.8 24 144/70 93 10/16/16 12:00 High Flow Nasal Cannula 30.00 65 Intake and Output 10/15/16 10/15/16 10/16/16 08:00 16:00 00:00 Intake Total 310 ml 674 ml 480 ml Output Total 400 ml 250 ml 300 ml Balance -90 ml 424 ml 180 ml Result Diagram: 10/15/16 0343 10/15/16 0343 Imaging Last Impressions Chest X-Ray 10/16/16 0600 Signed Impressions: Service Date/Time: September 03:52 - CONCLUSION: 1. Improving bibasilar atelectasis. 2. Mild Improving pulmonary edema. Alber Prasad MD Lung Scan- Nuclear Medicine 10/10/16 0000 Signed Impressions: Service Date/Time: Monday, October 10, 2016 09:39 - CONCLUSION: Low probability for pulmonary embolus. Anuradha Anthony MD Last 24 hours Impressions Chest X-Ray 10/10/16 0219 Signed Impressions: Service Date/Time: Monday, October 10, 2016 02:36 - CONCLUSION: Bilateral pleural effusions and bibasilar infiltrates. Zachary Perry Jr., MD Objective Remarks GENERAL: Elderly woman on high flow nasal cannula, in no respiratory distress sitting in chair SKIN: Warm and dry. HEAD: Normocephalic. EYES: No scleral icterus. No injection noted minimal, clear drainage from right eye. NECK: Supple, trachea midline. No JVD or lymphadenopathy. CARDIOVASCULAR: Regular rate and rhythm without murmurs, gallops, or rubs. RESPIRATORY: Breath sounds equal bilaterally. No accessory muscle use. Mild expiratory wheeze. GASTROINTESTINAL: Abdomen soft, non-tender, nondistended. EXTREMITIES: No clubbing cyanosis or edema Urinary Catheter: No A/P Assessment and Plan Respiratory failure - COPD exacerbation - Bilateral pulmonary infiltrate - Bilateral pleural effusion - History of pulmonary embolism without active anticoagulation - VQ scan low probability for PE - DuoNeb's scheduled every 4 hours - Levaquin (day 5) - Solu-Medrol currently 60 mg daily -Off BiPAP since 10/11 - Pulmonary consulted-Dr. Cummings following recommendations -10/16 chest x-ray mild pulmonary edema. Lasix 20 mg IV 1 dose Angina -Initial troponin 0.06, trended back down to 0.05 -Metoprolol 12.5 mg twice a day -10/14-ECHO ejection fraction 60-65%, no RWMA, moderate LVH, left atrium mildly dilated Hypokalemia-resolved - Replete electrolytes per ICU protocol - No EKG changes History of DVT and PE -Lovenox 40mg q 24 for DVT prophylaxis - VQ scan-low probability CHF (grade I diastolic dysfunction) - Strict blood pressure control HTN -Hydralazine 20 mg every 6 hours when necessary for systolic blood pressure greater than 160mmHg, -Metoprolol IV 2.5 mg every 6 hours when necessary systolic blood pressure greater than 160, heart rate greater than 100 Hyperkalemia-resolved -Continue to monitor BMP Anemia - Iron deficiency - Ferrous sulfate by mouth daily Sciatica - Gabapentin - Oxycodone when necessary DVT GI prophylaxis - Lovenox 40 mg a day - Pepcid -Heart healthy diet -PT evaluation and treat, patient out of bed to chair , and ambulating around the room with rolling walker Dispo: Discussed with patient and ASSISTANT CHIEF TRAIN DISPATCHER at bedside. Level 3 Physician Krissy Sofia MD Oct 16, 2016 16:23
[2016-10-16] MEDS ORDERED: FUROSEMIDE 20 MG/2 ML VIAL IV PUSH ONE (16:30)
--- NOTE | 2016-10-16 19:54 | HHI.PR ---
Subjective Remarks 76 YOWF With Hypercapnoic RF,COPD,HTN On High flow 02, fi02 60% Feels better Appetite poor denies any pain, slept better Objective Vital Signs Vital Signs Date Time Temp Pulse Resp B/P Pulse Ox O2 Delivery O2 Flow Rate FiO2 10/16/16 19:39 15 10/16/16 19:00 88 Nasal Cannula 60 10/16/16 16:40 98.7 59 28 153/83 92 10/16/16 16:37 96 Nasal Cannula 3.00 10/16/16 16:33 60 High Flow Nasal Cannula 25.00 10/16/16 15:12 59 10/16/16 12:00 98.8 54 24 144/70 93 10/16/16 12:00 92 High Flow Nasal Cannula 30.00 65 10/16/16 11:00 92 Nasal Cannula 70 10/16/16 08:14 92 High Flow Nasal Cannula 20.00 70 10/16/16 08:00 98.7 60 15 153/75 94 10/16/16 06:00 61 10/16/16 04:00 55 10/16/16 04:00 98.2 55 24 148/70 93 10/16/16 03:51 91 High Flow Nasal Cannula 20.00 70 10/16/16 02:00 60 10/16/16 00:00 98.1 66 21 137/66 90 10/16/16 00:00 66 10/15/16 22:00 71 10/15/16 20:16 89 High Flow Nasal Cannula 20.00 70 10/15/16 20:00 98.0 69 17 154/82 89 10/15/16 20:00 69 I/O 10/15/16 10/15/16 10/15/16 10/16/16 10/16/16 10/16/16 07:00 15:00 23:00 07:00 15:00 23:00 Intake Total 310 ml 674 ml 480 ml 220 ml Output Total 400 ml 250 ml 300 ml 400 ml 340 ml Balance -90 ml 424 ml 180 ml -180 ml -340 ml Intake Oral 250 ml 660 ml 480 ml 120 ml IV Total 60 ml 14 ml 100 ml Output Urine Total 400 ml 250 ml 300 ml 400 ml 340 ml # Bowel Movements 0 0 1 0 Result Diagram: 10/15/16 03410/15/16342 Objective Remarks GENERAL: Elderly WF, mild sob SKIN: Warm and dry. HEAD: Normocephalic. EYES: No scleral icterus. No injection or drainage. NECK: Supple, trachea midline. No JVD or lymphadenopathy. CARDIOVASCULAR: Regular rate and rhythm without murmurs, gallops, or rubs. RESPIRATORY: Breath sounds equal bilaterally. No accessory muscle use. Exp rhonchi. GASTROINTESTINAL: Abdomen soft, non-tender, nondistended. MUSCULOSKELETAL: No cyanosis, or edema. BACK: Nontender without obvious deformity. No CVA tenderness. A/P Assessment and Plan hypercapnoic RF COPD exac HTN Anxiety Hypoxia PLAN: Aerosol nebs Solumedrol IV Supplement 02, cont high flow DW Pt CPAP prn Arvind Cummings MD Oct 16, 2016 19:54
[2016-10-17] VITALS (15 sets, daily range): BP systolic 132–154; BP diastolic 66–77; PULSE 52–70; RESP 15–30; TEMP 98.1–98.7; O2SAT 87–92
[2016-10-17] MEDS: oxyCODONE/ACETAMINOPHEN 10 MG/325 MG TAB PO PRN ×3 (01:07→21:16)
[2016-10-17] MEDS: LEVOFLOXACIN 250 MG PREMIX INJ 50 ML IV SCH (02:12)
[2016-10-17] MEDS: RESP: ALBUTEROL 2.5 MG/IPRATROPIUM 0.5 MG NEB (SCH) INH ×6 (03:06→23:49)
[2016-10-17] MEDS: CHLORHEXIDINE GLUCONATE 2 % 1 PACK (2 CLOTHS) TOP SCH (03:13)
[2016-10-17] MEDS: methylPREDNISolone SOD SUCC 40 MG/1 ML VIAL IV PUSH SCH ×4 (05:23→23:40)
[2016-10-17] MEDS: ACETAMINOPHEN 325 MG TAB PO PRN (05:23)
[2016-10-17 06:02] LABS: MEAN CELL VOLUME 92.2 FL (80.0-100.0); MEAN CORPUSCULAR HEMOGLOBIN 29.8 PG (27.0-34.0); MEAN CORPUSCULAR HGB CONC 32.4 % (32.0-36.0); PLATELET COUNT 154 TH/MM3 (150-450); RED BLOOD COUNT 4.02 MIL/MM3 (4.00-5.30); RED CELL DISTRIBUTION WIDTH 15.3 % (11.6-17.2); REVIEW FLAG FINAL; WHITE BLOOD COUNT 11.1 TH/MM3 (4.0-11.0)
[2016-10-17 06:16] LABS: BICARBONATE 36.3 MEQ/L (21.0-32.0); MAGNESIUM 2.4 MG/DL (1.5-2.5); POTASSIUM 4.3 MEQ/L (3.5-5.1)
[2016-10-17] MEDS: ENOXAPARIN SODIUM 40 MG/0.4 ML SYRINGE SQ SCH (08:46)
[2016-10-17] MEDS: FAMOTIDINE 20 MG/2 ML VIAL IV PUSH SCH ×2 (08:48→20:53)
[2016-10-17] MEDS: SODIUM CHLORIDE 0.9% FLUSH 10 ML FLUSH SCH ×2 (08:49→20:54)
[2016-10-17] MEDS: SENNOSIDES SYRUP 8.8 MG/5 ML CUP PO SCH (08:49)
[2016-10-17] MEDS: GABAPENTIN 300 MG CAP PO SCH ×2 (08:49→20:54)
[2016-10-17] MEDS: DOCUSATE SODIUM 100 MG CAP PO SCH ×2 (08:49→20:54)
[2016-10-17] MEDS: amLODIPine BESYLATE 5 MG TAB PO SCH (08:49)
[2016-10-17] MEDS: METOPROLOL TARTRATE 25 MG TAB PO SCH ×2 (08:50→20:54)
[2016-10-17] MEDS: BUDESONIDE-FORMOTEROL 160/4.5 MCG INHALER INH SCH ×2 (09:01→20:55)
--- NOTE | 2016-10-17 16:29 | HHI.CCPN ---
Subjective Remarks/Hospital Course 10/10: 76-year-old female presents via EMS for hypoxia and shortness of breath. The patient has a history of COPD and recent pneumonia, history of pulmonary embolism was awakened for breathing treatment and noted to have an oxygen saturation of 48% on 3 L. The patient is chronically on 2-3 L with a normal oxygen saturation between 89-91% according to EMS and the patient. The patient does note increasing shortness of breath which improved with oxygen via nonrebreather. The patient also has a history of pulmonary embolism 2, currently not anticoagulated. She was on Xarelto in the past, but is no longer taking Xarelto. The patient denies any acute swelling of the lower extremities. The patient denies any chest pain, nausea, vomiting, or abdominal pain. She denies any associated fever. 10/11: On BiPAP overnight and was subsequent switched to nonrebreather facemask this morning. 10/12: On partial rebreather O2 since yesterday. Awake and alert, following commands. 10/13: Afebrile. The patient has been on a nonrebreather all night. Plan to transition to high flow nasal cannula this a.m., with change in O2 sat parameters to maintenance of an O2 sat of 90-92%. The patient is on home O2 dependency at 2 L/m nasal cannula. Continue aggressive pulmonary toileting and ordered PT activity out of bed, to chair. 10/14: Early this a.m. approximately 3:00 the patient had an episode of angina. EKG was obtained which revealed basically unchanged right bundle shira block, [place] age undetermined. Admission EKG 10/10 showed right bundle shira block, left anterior fascicular block possible anterior [place]. The patient was given morphine , serial troponins were obtained, with resolution of symptoms. Initial troponin slightly elevated 0.06, subsequent troponin level pending this afternoon. The patient has been up out of bed ambulating around the room with walker without any difficulty. The patient remains on high flow nasal cannula at 70% maintaining an O2 sat of 89%. Of note the patient is not dyspneic and carry on a full conversation denies any respiratory distress with a sat of 89%. 10/15: The patient continues to require FiO2 of 70%. The patient has been advanced out of bed to chair and ambulating around hospital room without difficulty. Unable to wean sat will continue aggressive pulmonary toileting. Echo obtained no PASP elevation noted. 10/16: The patient continues on FiO2 remained 70%-nasal cannula interchangeably with partial nonrebreather. Activity level increase out of bed and ambulation around the room. Aggressive pulmonary toileting continues. Chest x-ray obtained this morning showing mild pulmonary edema, Lasix 20 mg IV 1 dose initiated. 10/17: Tmax 99.8. FiO2 requirements decreased today to 50% the patient remains on high flow nasal cannula. Patient out of bed ambulating with rolling walker around the room, and up out of bed and chair. Chest x-ray revealed improvement , however noted elevation in WBC count. Objective Vital Signs Date Time Temp Pulse Resp B/P Pulse Ox O2 Delivery O2 Flow Rate FiO2 10/17/16 16:00 98.5 64 30 143/70 88 10/17/16 08:07 High Flow Nasal Cannula 30.00 55 Intake and Output 10/16/16 10/16/16 10/17/16 08:00 16:00 00:00 Intake Total 220 ml 120 ml Output Total 400 ml 340 ml 1300 ml Balance -180 ml -340 ml -1180 ml Result Diagram: 10/17/16 0505 10/17/16 0505 Imaging Last Impressions Chest X-Ray 10/16/16 0600 Signed Impressions: Service Date/Time: September 03:52 - CONCLUSION: 1. Improving bibasilar atelectasis. 2. Mild Improving pulmonary edema. Alber Prasad MD Lung Scan- Nuclear Medicine 10/10/16 0000 Signed Impressions: Service Date/Time: Monday, October 10, 2016 09:39 - CONCLUSION: Low probability for pulmonary embolus. KJonathan Anthony MD Last 24 hours Impressions Chest X-Ray 10/10/16 0219 Signed Impressions: Service Date/Time: Monday, October 10, 2016 02:36 - CONCLUSION: Bilateral pleural effusions and bibasilar infiltrates. Zachary Perry Jr., MD Objective Remarks GENERAL: Elderly woman on high flow nasal cannula, in no respiratory distress sitting in chair SKIN: Warm and dry. HEAD: Normocephalic. EYES: No scleral icterus. No injection noted minimal, clear drainage from right eye. NECK: Supple, trachea midline. No JVD or lymphadenopathy. CARDIOVASCULAR: Regular rate and rhythm without murmurs, gallops, or rubs. RESPIRATORY: Breath sounds equal bilaterally. No accessory muscle use. Mild expiratory wheeze. GASTROINTESTINAL: Abdomen soft, non-tender, nondistended. EXTREMITIES: No clubbing cyanosis or edema A/P Assessment and Plan Respiratory failure - COPD exacerbation - Bilateral pulmonary infiltrate - Bilateral pleural effusion - History of pulmonary embolism without active anticoagulation - VQ scan low probability for PE - DuoNeb's scheduled every 4 hours - Levaquin (day 6) - Solu-Medrol currently 60 mg daily -Off BiPAP since 10/11 - Pulmonary consulted-Dr. Cummings following recommendations -10/16 chest x-ray improvement, decreased atelectasis Angina -Initial troponin 0.06, trended back down to 0.05 -Metoprolol 12.5 mg twice a day -10/14-ECHO ejection fraction 60-65%, no RWMA, moderate LVH, left atrium mildly dilated Hypokalemia-resolved - Replete electrolytes per ICU protocol - No EKG changes History of DVT and PE -Lovenox 40mg q 24 for DVT prophylaxis - VQ scan-low probability CHF (grade I diastolic dysfunction) - Strict blood pressure control HTN -Hydralazine 20 mg every 6 hours when necessary for systolic blood pressure greater than 160mmHg, -Metoprolol IV 2.5 mg every 6 hours when necessary systolic blood pressure greater than 160, heart rate greater than 100 Hyperkalemia-resolved -Continue to monitor BMP Anemia - Iron deficiency - Ferrous sulfate by mouth daily Leukocytosis -WBC 11.1 today, patient continues on Levaquin and will continue to monitor Sciatica - Gabapentin - Oxycodone when necessary DVT GI prophylaxis - Lovenox 40 mg a day - Pepcid -Heart healthy diet -PT evaluation and treat, patient out of bed to chair , and ambulating around the room with rolling walker Dispo: Discussed with patient and ENTRY LEVEL SALES REPRESENTATIVE at bedside. Level 3 Physician Krissy Sofia MD Oct 17, 2016 16:29
[2016-10-17] MEDS: hydrALAZINE HCL 20 MG/ML VIAL IV PRN ×2 (18:21→21:15)
--- NOTE | 2016-10-17 18:56 | HHI.PR ---
Subjective Remarks 76 YOWF With Hypercapnoic RF,COPD,HTN On High flow 02, Fi02 weaned to 50% Feels better Appetite poor denies any pain, slept better Objective Vital Signs Vital Signs Date Time Temp Pulse Resp B/P Pulse Ox O2 Delivery O2 Flow Rate FiO2 10/17/16 18:00 60 10/17/16 16:00 98.5 64 30 143/70 88 10/17/16 16:00 64 10/17/16 14:00 70 10/17/16 12:00 53 10/17/16 12:00 98.1 10/17/16 12:00 52 15 149/66 89 10/17/16 10:00 61 10/17/16 08:07 92 High Flow Nasal Cannula 30.00 55 10/17/16 08:00 98.2 56 25 149/77 92 10/17/16 08:00 56 10/17/16 07:00 Nasal Cannula 10/17/16 06:00 61 10/17/16 04:00 98.2 60 15 134/68 88 10/17/16 04:00 60 10/17/16 02:07 20 10/17/16 02:00 64 10/17/16 00:00 98.7 60 16 154/73 88 10/17/16 00:00 70 10/16/16 22:00 70 10/16/16 20:48 89 High Flow Nasal Cannula 30.00 55 10/16/16 20:00 98.6 61 16 170/82 88 10/16/16 20:00 67 10/16/16 19:00 88 Nasal Cannula 60 I/O 10/16/16 10/16/16 10/16/16 10/17/16 10/17/16 10/17/16 07:00 15:00 23:00 07:00 15:00 23:00 Intake Total 220 ml 120 ml 170 ml 450 ml Output Total 400 ml 1640 ml 450 ml 225 ml Balance -180 ml -1520 ml -280 ml 225 ml Intake Oral 120 ml 120 ml 120 ml 450 ml IV Total 100 ml 50 ml 0 ml Output Urine Total 400 ml 1640 ml 450 ml 225 ml # Bowel Movements 0 1 Result Diagram: 10/17/16 0505 10/17/16 0505 Objective Remarks GENERAL: Elderly WF, mild sob SKIN: Warm and dry. HEAD: Normocephalic. EYES: No scleral icterus. No injection or drainage. NECK: Supple, trachea midline. No JVD or lymphadenopathy. CARDIOVASCULAR: Regular rate and rhythm without murmurs, gallops, or rubs. RESPIRATORY: Breath sounds equal bilaterally. No accessory muscle use. Exp rhonchi. GASTROINTESTINAL: Abdomen soft, non-tender, nondistended. MUSCULOSKELETAL: No cyanosis, or edema. BACK: Nontender without obvious deformity. No CVA tenderness. A/P Assessment and Plan hypercapnoic RF COPD exac HTN Anxiety Hypoxia PLAN: Aerosol nebs Solumedrol IV Supplement 02, cont high flow 50% and wean DW Pt and her son at BS. Arvind Cumminsg MD Oct 17, 2016 18:56
[2016-10-18] VITALS (11 sets, daily range): BP systolic 124–165; BP diastolic 58–88; PULSE 54–84; RESP 18–29; TEMP 98–98.3; O2SAT 87–93
[2016-10-18] MEDS: MORPHINE SULFATE 4 MG/ML INJ IV PRN (00:44)
[2016-10-18 01:20] LABS: BACTERIA, URINE MOD /hpf; BLOOD, URINE NEG (NEG); GLUCOSE,URINE NEG (NEG); KETONE, URINE NEG (NEG); MUCUS URINE FEW /lpf (OCC); PH, URINE 6.5 (5.0-8.5); SQUAMOUS EPITHELIAL CELL URINE <1 /hpf (0-5); URINE COLOR YELLOW (YELLW/STRAW)
[2016-10-18 01:22] LABS: NITRITE,URINE POS (NEG)
[2016-10-18 01:23] LABS: COMMENT (UR) CATH-CULTURE IND; CULTURE IF INDICATED CATH CULTURE IND
[2016-10-18] MEDS: LEVOFLOXACIN 250 MG PREMIX INJ 50 ML IV SCH (03:37)
[2016-10-18] MEDS: CHLORHEXIDINE GLUCONATE 2 % 1 PACK (2 CLOTHS) TOP SCH (04:00)
[2016-10-18] MEDS: RESP: ALBUTEROL 2.5 MG/IPRATROPIUM 0.5 MG NEB (SCH) INH ×5 (04:31→21:00)
[2016-10-18 04:45] LABS: AUTOMATED NEUTROPHIL # 8.6 TH/MM3 (1.8-7.7); HEMATOCRIT 37.8 % (35.0-46.0); HEMO FLAGS DIFF FINAL; LYMPH % 3.4 % (9.0-44.0); LYMPHOCYTE # 0.3 TH/MM3 (1.0-4.8); MEAN CELL VOLUME 93.8 FL (80.0-100.0); MEAN CORPUSCULAR HEMOGLOBIN 29.4 PG (27.0-34.0); MEAN CORPUSCULAR HGB CONC 31.4 % (32.0-36.0); MONO % 2.5 % (0.0-8.0); NEUT % 94.1 % (16.0-70.0); PLATELET COUNT 140 TH/MM3 (150-450); RED BLOOD COUNT 4.03 MIL/MM3 (4.00-5.30); RED CELL DISTRIBUTION WIDTH 15.9 % (11.6-17.2); WHITE BLOOD COUNT 9.1 TH/MM3 (4.0-11.0)
--- NOTE | 2016-10-18 06:20 | PQ ---
Physician Query Response Document PATIENT: HARIS CARTAGENA : 1940 ADMIT DATE: 10/10/2016 3:33 AM DISCH DATE: RESPONDING PROVIDER #: [email or web address] QUERY TEXT: Clarification of Clinical Diagnostic Findings Please clarify documentation or clinical relevance for the clinical / diagnostic findings or whether those are insignificant or unable to be further specified. A documented condition of PNEUMONIA is noted in the medical record. Please clarify the diagnosis and the location/ laterality of the area being treated. Please also document if the condition is: -- Confirmed and current -- Confirmed, treated and resolved -- Ruled out -- Other (please specify) The patient's Clinical Indicators include: on admission Patient was hypoxic 55% on room air, 70% on 3 L, therefore, was placed on BiPAP. The patient was adm inistered 500 cc fluid bolus. The patient was also covered with Levaquin for possible pneumonia B ilateral pulmonary infiltrates noted on imaging Query created by: Jenn Qureshi on 10/17/2016 12:05 PM RESPONSE TEXT: The patient presented with COPD exacerbation and Pneumonia as evidenced by B/L pulmonary infiltrates on CXR. The patient presented with SIRS and required IV bolus of fluid and initiation of antibiotics . The patient is currently being treated, it has not resolved at this moment. Electronically signed by: Krissy Garrett MD 10/18/2016 6:16 AM
[2016-10-18] MEDS: methylPREDNISolone SOD SUCC 40 MG/1 ML VIAL IV PUSH SCH ×3 (06:31→19:59)
[2016-10-18] MEDS: hydrALAZINE HCL 20 MG/ML VIAL IV PRN (09:00)
[2016-10-18] MEDS: BUDESONIDE-FORMOTEROL 160/4.5 MCG INHALER INH SCH ×2 (09:00→20:54)
[2016-10-18] MEDS: GABAPENTIN 300 MG CAP PO SCH ×2 (09:00→20:00)
[2016-10-18] MEDS: ENOXAPARIN SODIUM 40 MG/0.4 ML SYRINGE SQ SCH (09:00)
[2016-10-18] MEDS: FAMOTIDINE 20 MG/2 ML VIAL IV PUSH SCH ×2 (09:00→20:03)
[2016-10-18] MEDS: amLODIPine BESYLATE 5 MG TAB PO SCH (09:00)
[2016-10-18] MEDS: METOPROLOL TARTRATE 25 MG TAB PO SCH ×2 (09:00→19:59)
[2016-10-18] MEDS: SODIUM CHLORIDE 0.9% FLUSH 10 ML FLUSH SCH ×2 (09:00→20:54)
--- NOTE | 2016-10-18 15:35 | PD.TRANSFR ---
Transfer Summary Admission Date Oct 10, 2016 at 03:33 Admitting Diagnosis hypoxia, pneumonia, pleural effusion, a [employer], hyperk Diagnoses: Objective Vital Signs Date Time Temp Pulse Resp B/P Pulse Ox O2 Delivery O2 Flow Rate FiO2 10/18/16 12:59 89 Nasal Cannula 6.00 10/18/16 12:00 98.0 60 24 134/60 10/17/16 23:50 50 Intake and Output 10/17/16 10/17/16 10/18/16 08:00 16:00 00:00 Intake Total 170 ml 450 ml 200 ml Output Total 450 ml 225 ml 325 ml Balance -280 ml 225 ml -125 ml Result Diagram: 10/18/16 0323 10/17/16 0505 Imaging Last Impressions Chest X-Ray 10/16/16 0600 Signed Impressions: Service Date/Time: September 03:52 - CONCLUSION: 1. Improving bibasilar atelectasis. 2. Mild Improving pulmonary edema. Alber Prasad MD Lung Scan-V Nuclear Medicine 10/10/16 0000 Signed Impressions: Service Date/Time: Monday, October 10, 2016 09:39 - CONCLUSION: Low probability for pulmonary embolus. Anuradha Anthony MD Last 24 hours Impressions Chest X-Ray 10/10/16 0219 Signed Impressions: Service Date/Time: Monday, October 10, 2016 02:36 - CONCLUSION: Bilateral pleural effusions and bibasilar infiltrates. Zachary Perry Jr., MD Objective Remarks GENERAL: Elderly woman on nasal cannula 6 L, in no respiratory distress sitting in chair SKIN: Warm and dry. HEAD: Normocephalic. EYES: No scleral icterus. No injection noted minimal, clear drainage from right eye. NECK: Supple, trachea midline. No JVD or lymphadenopathy. CARDIOVASCULAR: Regular rate and rhythm without murmurs, gallops, or rubs. RESPIRATORY: Breath sounds equal bilaterally. No accessory muscle use. Mild expiratory wheeze. GASTROINTESTINAL: Abdomen soft, non-tender, nondistended. EXTREMITIES: No clubbing cyanosis or edema Urinary Catheter: No A/P Assessment and Plan Respiratory failure - COPD exacerbation - Bilateral pulmonary infiltrate - Bilateral pleural effusion - History of pulmonary embolism without active anticoagulation - VQ scan low probability for PE - DuoNeb's scheduled every 4 hours - Levaquin (day 7) - Solu-Medrol currently 40 milligrams every 8 hours, continue to wean -Off BiPAP since 10/11 - Pulmonary consulted-Dr. Cummings following -10/16 chest x-ray improvement, decreased atelectasis Angina -Initial troponin 0.06, trended back down to 0.05 -Metoprolol 12.5 mg twice a day -10/14-ECHO ejection fraction 60-65%, no RWMA, moderate LVH, left atrium mildly dilated Hypokalemia-resolved - Replete electrolytes per ICU protocol - No EKG changes History of DVT and PE -Lovenox 40mg q 24 for DVT prophylaxis - VQ scan-low probability CHF (grade I diastolic dysfunction) - Strict blood pressure control HTN -Hydralazine 20 mg every 6 hours when necessary for systolic blood pressure greater than 160mmHg, -Metoprolol IV 2.5 mg every 6 hours when necessary systolic blood pressure greater than 160, heart rate greater than 100 Hyperkalemia-resolved -Continue to monitor BMP Anemia - Iron deficiency - Ferrous sulfate by mouth daily Leukocytosis-resolved -WBC 9.1 today, patient continues on Levaquin and will continue to monitor Sciatica - Gabapentin - Oxycodone when necessary DVT GI prophylaxis - Lovenox 40 mg a day - Pepcid -Heart healthy diet -PT evaluation and treat, patient out of bed to chair , and ambulating around the room with rolling walker Dispo: Discussed with patient and OUTPATIENT PHYSICAL THERAPIST at bedside. Planned transfer to [facility] in a.m. Level 2 Physician Krissy Sofia MD Oct 18, 2016 15:35
--- NOTE | 2016-10-18 18:06 | HHI.PR ---
Subjective Remarks 76 YOWF With Hypercapnoic RF,COPD,HTN Feels better Appetite poor denies any pain, slept better weaned to 6LNC Objective Vital Signs Vital Signs Date Time Temp Pulse Resp B/P Pulse Ox O2 Delivery O2 Flow Rate FiO2 10/18/16 16:00 98.0 64 22 152/68 89 10/18/16 16:00 64 10/18/16 12:59 89 Nasal Cannula 6.00 10/18/16 12:45 89 Nasal Cannula 6.00 10/18/16 12:00 98.0 60 24 134/60 87 10/18/16 12:00 84 10/18/16 08:00 98.1 59 18 165/74 89 10/18/16 08:00 59 10/18/16 06:00 58 10/18/16 04:00 98.2 60 19 124/58 88 10/18/16 04:00 60 10/18/16 02:00 62 10/18/16 00:00 57 10/18/16 00:00 98.3 58 22 132/63 89 10/17/16 23:50 89 High Flow Nasal Cannula 20.00 50 10/17/16 22:00 62 10/17/16 20:00 63 10/17/16 20:00 98.7 65 15 132/66 88 10/17/16 19:52 87 High Flow Nasal Cannula 25.00 50 10/17/16 19:00 89 Nasal Cannula 50 I/O 10/17/16 10/17/16 10/17/16 10/18/16 10/18/16 10/18/16 07:00 15:00 23:00 07:00 15:00 23:00 Intake Total 170 ml 450 ml 200 ml 250 ml 240 ml Output Total 450 ml 225 ml 325 ml 150 ml 200 ml Balance -280 ml 225 ml -125 ml 100 ml 40 ml Intake Oral 120 ml 450 ml 200 ml 200 ml 240 ml IV Total 50 ml 0 ml 50 ml Output Urine Total 450 ml 225 ml 325 ml 150 ml 200 ml # Bowel Movements 1 1 Result Diagram: 10/18/16 0323 10/17/16 0505 Objective Remarks GENERAL: Elderly WF, mild sob SKIN: Warm and dry. HEAD: Normocephalic. EYES: No scleral icterus. No injection or drainage. NECK: Supple, trachea midline. No JVD or lymphadenopathy. CARDIOVASCULAR: Regular rate and rhythm without murmurs, gallops, or rubs. RESPIRATORY: Breath sounds equal bilaterally. No accessory muscle use. Exp rhonchi. GASTROINTESTINAL: Abdomen soft, non-tender, nondistended. MUSCULOSKELETAL: No cyanosis, or edema. BACK: Nontender without obvious deformity. No CVA tenderness. A/P Assessment and Plan hypercapnoic RF COPD exac HTN Anxiety Hypoxia PLAN: Aerosol nebs Solumedrol IV Supplement 02, 6LNC High flow prn DW Pt and her son at BS. Arvind Cummings MD Oct 18, 2016 18:06
[2016-10-18] MEDS: DOCUSATE SODIUM 100 MG CAP PO SCH (20:53)
[2016-10-19] VITALS (11 sets, daily range): BP systolic 123–162; BP diastolic 58–86; PULSE 54–72; RESP 17–35; TEMP 98–98.6; O2SAT 87–90
[2016-10-19] MEDS: oxyCODONE/ACETAMINOPHEN 10 MG/325 MG TAB PO PRN ×4 (00:10→18:18)
[2016-10-19] MEDS: RESP: ALBUTEROL 2.5 MG/IPRATROPIUM 0.5 MG NEB (SCH) INH ×6 (01:35→20:03)
[2016-10-19] MEDS: CHLORHEXIDINE GLUCONATE 2 % 1 PACK (2 CLOTHS) TOP SCH (03:44)
[2016-10-19] MEDS: methylPREDNISolone SOD SUCC 40 MG/1 ML VIAL IV PUSH SCH ×3 (03:44→20:11)
[2016-10-19] MEDS: LEVOFLOXACIN 250 MG PREMIX INJ 50 ML IV SCH (03:44)
--- NOTE | 2016-10-19 07:29 | HHI.CCPN ---
Subjective Remarks/Hospital Course 10/10: 76-year-old female presents via EMS for hypoxia and shortness of breath. The patient has a history of COPD and recent pneumonia, history of pulmonary embolism was awakened for breathing treatment and noted to have an oxygen saturation of 48% on 3 L. The patient is chronically on 2-3 L with a normal oxygen saturation between 89-91% according to EMS and the patient. The patient does note increasing shortness of breath which improved with oxygen via nonrebreather. The patient also has a history of pulmonary embolism 2, currently not anticoagulated. She was on Xarelto in the past, but is no longer taking Xarelto. The patient denies any acute swelling of the lower extremities. The patient denies any chest pain, nausea, vomiting, or abdominal pain. She denies any associated fever. 10/11: On BiPAP overnight and was subsequent switched to nonrebreather facemask this morning. 10/12: On partial rebreather O2 since yesterday. Awake and alert, following commands. 10/13: Afebrile. The patient has been on a nonrebreather all night. Plan to transition to high flow nasal cannula this a.m., with change in O2 sat parameters to maintenance of an O2 sat of 90-92%. The patient is on home O2 dependency at 2 L/m nasal cannula. Continue aggressive pulmonary toileting and ordered PT activity out of bed, to chair. 10/14: Early this a.m. approximately 3:00 the patient had an episode of angina. EKG was obtained which revealed basically unchanged right bundle shira block, VT age undetermined. Admission EKG 10/10 showed right bundle shira block, left anterior fascicular block possible anterior VT. The patient was given morphine , serial troponins were obtained, with resolution of symptoms. Initial troponin slightly elevated 0.06, subsequent troponin level pending this afternoon. The patient has been up out of bed ambulating around the room with walker without any difficulty. The patient remains on high flow nasal cannula at 70% maintaining an O2 sat of 89%. Of note the patient is not dyspneic and carry on a full conversation denies any respiratory distress with a sat of 89%. 10/15: The patient continues to require FiO2 of 70%. The patient has been advanced out of bed to chair and ambulating around hospital room without difficulty. Unable to wean sat will continue aggressive pulmonary toileting. Echo obtained no PASP elevation noted. 10/16: The patient continues on FiO2 remained 70%-nasal cannula interchangeably with partial nonrebreather. Activity level increase out of bed and ambulation around the room. Aggressive pulmonary toileting continues. Chest x-ray obtained this morning showing mild pulmonary edema, Lasix 20 mg IV 1 dose initiated. 10/17: Tmax 99.8. FiO2 requirements decreased today to 50% the patient remains on high flow nasal cannula. Patient out of bed ambulating with rolling walker around the room, and up out of bed and chair. Chest x-ray revealed improvement , however noted elevation in WBC count. Objective Vital Signs Date Time Temp Pulse Resp B/P Pulse Ox O2 Delivery O2 Flow Rate FiO2 10/19/16 06:00 68 10/19/16 04:00 98.0 35 162/79 87 10/18/16 21:00 High Flow Nasal Cannula 25.00 55 Intake and Output 10/18/16 10/18/16 10/19/16 08:00 16:00 00:00 Intake Total 250 ml 240 ml 240 ml Output Total 150 ml 200 ml 250 ml Balance 100 ml 40 ml -10 ml Result Diagram: 10/18/16 0323 10/17/16 0505 Imaging Last Impressions Chest X-Ray 10/16/16 0600 Signed Impressions: Service Date/Time: September 03:52 - CONCLUSION: 1. Improving bibasilar atelectasis. 2. Mild Improving pulmonary edema. Alber Prasad MD Lung Scan- Nuclear Medicine 10/10/16 0000 Signed Impressions: Service Date/Time: Monday, October 10, 2016 09:39 - CONCLUSION: Low probability for pulmonary embolus. Anuradha Anthony MD Last 24 hours Impressions Chest X-Ray 10/10/16 0219 Signed Impressions: Service Date/Time: Monday, October 10, 2016 02:36 - CONCLUSION: Bilateral pleural effusions and bibasilar infiltrates. Zachary Perry Jr., MD Objective Remarks GENERAL: Elderly woman on nasal cannula 6 L, in no respiratory distress sitting in chair SKIN: Warm and dry. HEAD: Normocephalic. EYES: No scleral icterus. No injection noted minimal, clear drainage from right eye. NECK: Supple, trachea midline. No JVD or lymphadenopathy. CARDIOVASCULAR: Regular rate and rhythm without murmurs, gallops, or rubs. RESPIRATORY: Breath sounds equal bilaterally. No accessory muscle use. Mild expiratory wheeze. GASTROINTESTINAL: Abdomen soft, non-tender, nondistended. EXTREMITIES: No clubbing cyanosis or edema A/P Assessment and Plan Respiratory failure - COPD exacerbation - Bilateral pulmonary infiltrate - Bilateral pleural effusion - History of pulmonary embolism without active anticoagulation - VQ scan low probability for PE - DuoNeb's scheduled every 4 hours - Levaquin (day 7) - Solu-Medrol currently 40 milligrams every 8 hours, continue to wean -Off BiPAP since 10/11 - Pulmonary consulted-Dr. Cummings following -10/16 chest x-ray improvement, decreased atelectasis Angina -Initial troponin 0.06, trended back down to 0.05 -Metoprolol 12.5 mg twice a day -10/14-ECHO ejection fraction 60-65%, no RWMA, moderate LVH, left atrium mildly dilated Hypokalemia-resolved - Replete electrolytes per ICU protocol - No EKG changes History of DVT and PE -Lovenox 40mg q 24 for DVT prophylaxis - VQ scan-low probability CHF (grade I diastolic dysfunction) - Strict blood pressure control HTN -Hydralazine 20 mg every 6 hours when necessary for systolic blood pressure greater than 160mmHg, -Metoprolol IV 2.5 mg every 6 hours when necessary systolic blood pressure greater than 160, heart rate greater than 100 Hyperkalemia-resolved -Continue to monitor BMP Anemia - Iron deficiency - Ferrous sulfate by mouth daily Leukocytosis-resolved -WBC 9.1 today, patient continues on Levaquin and will continue to monitor Sciatica - Gabapentin - Oxycodone when necessary DVT GI prophylaxis - Lovenox 40 mg a day - Pepcid -Heart healthy diet -PT evaluation and treat, patient out of bed to chair , and ambulating around the room with rolling walker Dispo: Discussed with patient and FREEZER PERSON at bedside. Planned transfer to [facility] in a.m. Level 2 Krissy Garrett MD Oct 19, 2016 07:29
--- NOTE | 2016-10-19 07:33 | HHI.CCPN ---
Subjective Remarks/Hospital Course 10/10: 76-year-old female presents via EMS for hypoxia and shortness of breath. The patient has a history of COPD and recent pneumonia, history of pulmonary embolism was awakened for breathing treatment and noted to have an oxygen saturation of 48% on 3 L. The patient is chronically on 2-3 L with a normal oxygen saturation between 89-91% according to EMS and the patient. The patient does note increasing shortness of breath which improved with oxygen via nonrebreather. The patient also has a history of pulmonary embolism 2, currently not anticoagulated. She was on Xarelto in the past, but is no longer taking Xarelto. The patient denies any acute swelling of the lower extremities. The patient denies any chest pain, nausea, vomiting, or abdominal pain. She denies any associated fever. 10/11: On BiPAP overnight and was subsequent switched to nonrebreather facemask this morning. 10/12: On partial rebreather O2 since yesterday. Awake and alert, following commands. 10/13: Afebrile. The patient has been on a nonrebreather all night. Plan to transition to high flow nasal cannula this a.m., with change in O2 sat parameters to maintenance of an O2 sat of 90-92%. The patient is on home O2 dependency at 2 L/m nasal cannula. Continue aggressive pulmonary toileting and ordered PT activity out of bed, to chair. 10/14: Early this a.m. approximately 3:00 the patient had an episode of angina. EKG was obtained which revealed basically unchanged right bundle shira block, MS age undetermined. Admission EKG 10/10 showed right bundle shira block, left anterior fascicular block possible anterior MS. The patient was given morphine , serial troponins were obtained, with resolution of symptoms. Initial troponin slightly elevated 0.06, subsequent troponin level pending this afternoon. The patient has been up out of bed ambulating around the room with walker without any difficulty. The patient remains on high flow nasal cannula at 70% maintaining an O2 sat of 89%. Of note the patient is not dyspneic and carry on a full conversation denies any respiratory distress with a sat of 89%. 10/15: The patient continues to require FiO2 of 70%. The patient has been advanced out of bed to chair and ambulating around hospital room without difficulty. Unable to wean sat will continue aggressive pulmonary toileting. Echo obtained no PASP elevation noted. 10/16: The patient continues on FiO2 remained 70%-nasal cannula interchangeably with partial nonrebreather. Activity level increase out of bed and ambulation around the room. Aggressive pulmonary toileting continues. Chest x-ray obtained this morning showing mild pulmonary edema, Lasix 20 mg IV 1 dose initiated. 10/17: Tmax 99.8. FiO2 requirements decreased today to 50% the patient remains on high flow nasal cannula. Patient out of bed ambulating with rolling walker around the room, and up out of bed and chair. Chest x-ray revealed improvement , however noted elevation in WBC count. 10/18: Patient had increasing O2 requirements last night, subsequently wound up on a nonrebreather. Early this a.m. the patient is now on high flow at FiO2 55% . Plans to continue weaning, will provide BiPAP at night while patient is sleeping. WBC count noted to be decreasing. Objective Vital Signs Date Time Temp Pulse Resp B/P Pulse Ox O2 Delivery O2 Flow Rate FiO2 10/19/16 06:00 68 10/19/16 04:00 98.0 35 162/79 87 10/18/16 21:00 High Flow Nasal Cannula 25.00 55 Intake and Output 10/18/16 10/18/16 10/19/16 08:00 16:00 00:00 Intake Total 250 ml 240 ml 240 ml Output Total 150 ml 200 ml 250 ml Balance 100 ml 40 ml -10 ml Result Diagram: 10/18/16 0323 10/17/16 0505 Imaging Last Impressions Chest X-Ray 10/16/16 0600 Signed Impressions: Service Date/Time: September 03:52 - CONCLUSION: 1. Improving bibasilar atelectasis. 2. Mild Improving pulmonary edema. Alber Prasad MD Lung Scan-V Nuclear Medicine 10/10/16 0000 Signed Impressions: Service Date/Time: Monday, October 10, 2016 09:39 - CONCLUSION: Low probability for pulmonary embolus. Anuradha Anthony MD Last 24 hours Impressions Chest X-Ray 10/10/16 0219 Signed Impressions: Service Date/Time: Monday, October 10, 2016 02:36 - CONCLUSION: Bilateral pleural effusions and bibasilar infiltrates. Zachary Perry Jr., MD Objective Remarks GENERAL: Elderly woman appropriately stated age on high flow nasal cannula SKIN: Warm and dry. HEAD: Normocephalic. EYES: No scleral icterus. No injection noted minimal, clear drainage from right eye. NECK: Supple, trachea midline. No JVD or lymphadenopathy. CARDIOVASCULAR: Regular rate and rhythm without murmurs, gallops, or rubs. RESPIRATORY: Breath sounds equal bilaterally. No accessory muscle use. Scattered rhonchi. GASTROINTESTINAL: Abdomen soft, non-tender, nondistended. EXTREMITIES: No clubbing cyanosis or edema Urinary Catheter: No Vascular Central Line Catheter: No A/P Assessment and Plan Respiratory failure - COPD exacerbation - Bilateral pulmonary infiltrate - Bilateral pleural effusion - History of pulmonary embolism without active anticoagulation - VQ scan low probability for PE - DuoNeb's scheduled every 4 hours - Levaquin (day 7) - Solu-Medrol currently 40 milligrams every 8 hours, continue to wean -Off BiPAP since 10/11 - Pulmonary consulted-Dr. Cummings following -10/16 chest x-ray improvement, decreased atelectasis Angina -Initial troponin 0.06, trended back down to 0.05 -Metoprolol 12.5 mg twice a day -10/14-ECHO ejection fraction 60-65%, no RWMA, moderate LVH, left atrium mildly dilated Hypokalemia-resolved - Replete electrolytes per ICU protocol - No EKG changes History of DVT and PE -Lovenox 40mg q 24 for DVT prophylaxis - VQ scan-low probability CHF (grade I diastolic dysfunction) - Strict blood pressure control HTN -Hydralazine 20 mg every 6 hours when necessary for systolic blood pressure greater than 160mmHg, -Metoprolol IV 2.5 mg every 6 hours when necessary systolic blood pressure greater than 160, heart rate greater than 100 Hyperkalemia-resolved -Continue to monitor BMP Anemia - Iron deficiency - Ferrous sulfate by mouth daily Leukocytosis-resolved -WBC 9.1 today, patient continues on Levaquin and will continue to monitor Sciatica - Gabapentin - Oxycodone PRN for pain scale graded 7 - 10 DVT GI prophylaxis - Lovenox 40 mg a day - Pepcid -Heart healthy diet -PT evaluation and treat, patient out of bed to chair , and ambulating around the room with rolling walker Dispo: Discussed with patient and CENTER MANAGER at bedside. Order rescinded for transfer, secondary to increasing O2 requirements. We'll continue to wean Level 3 Physician Krissy Sofia MD Oct 19, 2016 07:33
[2016-10-19] MEDS: BUDESONIDE-FORMOTEROL 160/4.5 MCG INHALER INH SCH ×2 (09:00→20:24)
[2016-10-19] MEDS: GABAPENTIN 300 MG CAP PO SCH ×2 (09:03→20:08)
[2016-10-19] MEDS: METOPROLOL TARTRATE 25 MG TAB PO SCH ×2 (09:03→20:09)
[2016-10-19] MEDS: DOCUSATE SODIUM 100 MG CAP PO SCH ×2 (09:03→20:09)
[2016-10-19] MEDS: amLODIPine BESYLATE 5 MG TAB PO SCH (09:03)
[2016-10-19] MEDS: FAMOTIDINE 20 MG/2 ML VIAL IV PUSH SCH ×2 (09:04→20:09)
[2016-10-19] MEDS: ENOXAPARIN SODIUM 40 MG/0.4 ML SYRINGE SQ SCH (09:04)
[2016-10-19] MEDS: SODIUM CHLORIDE 0.9% FLUSH 10 ML FLUSH SCH ×2 (09:04→20:12)
[2016-10-19] MEDS: hydrALAZINE HCL 20 MG/ML VIAL IV PRN (14:14)
--- NOTE | 2016-10-19 17:19 | HHI.PR ---
Subjective Remarks 76 YOWF With Hypercapnoic RF,COPD,HTN Feels better Appetite poor denies any pain, slept better Required NRB last night now, back on NC Objective Vital Signs Vital Signs Date Time Temp Pulse Resp B/P Pulse Ox O2 Delivery O2 Flow Rate FiO2 10/19/16 16:00 65 10/19/16 16:00 98.6 65 18 145/65 88 10/19/16 12:08 18 10/19/16 12:00 98.0 54 18 159/74 89 10/19/16 12:00 54 10/19/16 11:32 90 Nasal Cannula 6.00 10/19/16 09:30 90 Nasal Cannula 6.00 10/19/16 08:00 98.2 55 17 150/70 88 10/19/16 08:00 55 10/19/16 06:00 68 10/19/16 04:00 58 10/19/16 04:00 98.0 58 35 162/79 87 10/19/16 02:00 56 10/19/16 00:00 60 10/19/16 00:00 98.2 60 22 144/86 90 10/18/16 22:00 54 10/18/16 21:00 89 High Flow Nasal Cannula 25.00 55 10/18/16 21:00 95 Partial Non-Rebreather 13.00 10/18/16 20:00 66 10/18/16 20:00 98.3 66 29 137/88 93 10/18/16 19:00 93 Partial Non-Rebreather 13.00 10/18/16 18:51 84 Partial Non-Rebreather 13.00 10/18/16 18:26 Venturi Mask 6.00 50 I/O 10/18/16 10/18/16 10/18/16 10/19/16 10/19/16 10/19/16 07:00 15:00 23:00 07:00 15:00 23:00 Intake Total 250 ml 240 ml 240 ml 442 ml 240 ml Output Total 150 ml 200 ml 250 ml 225 ml 225 ml Balance 100 ml 40 ml -10 ml 217 ml 15 ml Intake Oral 200 ml 240 ml 240 ml 360 ml 240 ml IV Total 50 ml 82 ml Output Urine Total 150 ml 200 ml 250 ml 225 ml 225 ml # Bowel Movements 1 0 0 0 Result Diagram: 10/18/16 0323 10/17/16 0505 Objective Remarks GENERAL: Elderly WF, mild sob SKIN: Warm and dry. HEAD: Normocephalic. EYES: No scleral icterus. No injection or drainage. NECK: Supple, trachea midline. No JVD or lymphadenopathy. CARDIOVASCULAR: Regular rate and rhythm without murmurs, gallops, or rubs. RESPIRATORY: Breath sounds equal bilaterally. No accessory muscle use. Exp rhonchi. GASTROINTESTINAL: Abdomen soft, non-tender, nondistended. MUSCULOSKELETAL: No cyanosis, or edema. BACK: Nontender without obvious deformity. No CVA tenderness. A/P Assessment and Plan hypercapnoic RF COPD exac HTN Anxiety Hypoxia PLAN: Aerosol nebs Solumedrol IV Supplement 02, 6LNC High flow/ NRB prn DW Pt and her son at BS. Arvind Cummings MD Oct 19, 2016 17:19
[2016-10-20] VITALS (18 sets, daily range): BP systolic 131–174; BP diastolic 65–86; PULSE 57–96; RESP 16–30; TEMP 97.5–99.9; O2SAT 88–95
[2016-10-20] MEDS: RESP: ALBUTEROL 2.5 MG/IPRATROPIUM 0.5 MG NEB (SCH) INH ×5 (02:09→15:46)
[2016-10-20] MEDS: CHLORHEXIDINE GLUCONATE 2 % 1 PACK (2 CLOTHS) TOP SCH (02:47)
[2016-10-20] MEDS: methylPREDNISolone SOD SUCC 40 MG/1 ML VIAL IV PUSH SCH ×3 (03:00→20:00)
[2016-10-20] MEDS: LEVOFLOXACIN 250 MG PREMIX INJ 50 ML IV SCH (03:01)
[2016-10-20] MEDS: oxyCODONE/ACETAMINOPHEN 10 MG/325 MG TAB PO PRN ×3 (04:19→20:33)
[2016-10-20 04:28] LABS: HEMATOCRIT 34.3 % (35.0-46.0); MEAN CELL VOLUME 92.5 FL (80.0-100.0); MEAN CORPUSCULAR HGB CONC 32.4 % (32.0-36.0); PLATELET COUNT 148 TH/MM3 (150-450); RED CELL DISTRIBUTION WIDTH 15.5 % (11.6-17.2); REVIEW FLAG FINAL; WHITE BLOOD COUNT 7.9 TH/MM3 (4.0-11.0)
[2016-10-20] MEDS: SENNOSIDES SYRUP 8.8 MG/5 ML CUP PO SCH ×3 (08:19→09:00)
[2016-10-20] MEDS: GABAPENTIN 300 MG CAP PO SCH ×2 (08:19→20:35)
[2016-10-20] MEDS: ENOXAPARIN SODIUM 40 MG/0.4 ML SYRINGE SQ SCH (08:20)
[2016-10-20] MEDS: FAMOTIDINE 20 MG/2 ML VIAL IV PUSH SCH ×2 (08:20→20:32)
[2016-10-20] MEDS: amLODIPine BESYLATE 5 MG TAB PO SCH (08:20)
[2016-10-20] MEDS: METOPROLOL TARTRATE 25 MG TAB PO SCH ×2 (08:21→20:34)
[2016-10-20] MEDS: DOCUSATE SODIUM 100 MG CAP PO SCH ×2 (08:21→20:33)
[2016-10-20] MEDS: SODIUM CHLORIDE 0.9% FLUSH 10 ML FLUSH SCH ×2 (08:24→20:58)
[2016-10-20] MEDS: BUDESONIDE-FORMOTEROL 160/4.5 MCG INHALER INH SCH ×2 (11:16→22:12)
--- NOTE | 2016-10-20 13:51 | HHI.PR ---
Subjective Remarks documentation improvement specialist Notes: 10/10: 76-year-old female presents via EMS for hypoxia and shortness of breath. The patient has a history of COPD and recent pneumonia, history of pulmonary embolism was awakened for breathing treatment and noted to have an oxygen saturation of 48% on 3 L. The patient is chronically on 2-3 L with a normal oxygen saturation between 89-91% according to EMS and the patient. The patient does note increasing shortness of breath which improved with oxygen via nonrebreather. The patient also has a history of pulmonary embolism 2, currently not anticoagulated. She was on Xarelto in the past, but is no longer taking Xarelto. The patient denies any acute swelling of the lower extremities. The patient denies any chest pain, nausea, vomiting, or abdominal pain. She denies any associated fever. 10/11: On BiPAP overnight and was subsequent switched to nonrebreather facemask this morning. 10/12: On partial rebreather O2 since yesterday. Awake and alert, following commands. 10/13: Afebrile. The patient has been on a nonrebreather all night. Plan to transition to high flow nasal cannula this a.m., with change in O2 sat parameters to maintenance of an O2 sat of 90-92%. The patient is on home O2 dependency at 2 L/m nasal cannula. Continue aggressive pulmonary toileting and ordered PT activity out of bed, to chair. 10/14: Early this a.m. approximately 3:00 the patient had an episode of angina. EKG was obtained which revealed basically unchanged right bundle shira block, PA age undetermined. Admission EKG 10/10 showed right bundle shira block, left anterior fascicular block possible anterior PA. The patient was given morphine , serial troponins were obtained, with resolution of symptoms. Initial troponin slightly elevated 0.06, subsequent troponin level pending this afternoon. The patient has been up out of bed ambulating around the room with walker without any difficulty. The patient remains on high flow nasal cannula at 70% maintaining an O2 sat of 89%. Of note the patient is not dyspneic and carry on a full conversation denies any respiratory distress with a sat of 89%. 10/15: The patient continues to require FiO2 of 70%. The patient has been advanced out of bed to chair and ambulating around hospital room without difficulty. Unable to wean sat will continue aggressive pulmonary toileting. Echo obtained no PASP elevation noted. 10/16: The patient continues on FiO2 remained 70%-nasal cannula interchangeably with partial nonrebreather. Activity level increase out of bed and ambulation around the room. Aggressive pulmonary toileting continues. Chest x-ray obtained this morning showing mild pulmonary edema, Lasix 20 mg IV 1 dose initiated. 10/17: Tmax 99.8. FiO2 requirements decreased today to 50% the patient remains on high flow nasal cannula. Patient out of bed ambulating with rolling walker around the room, and up out of bed and chair. Chest x-ray revealed improvement , however noted elevation in WBC count. 10/18: Patient had increasing O2 requirements last night, subsequently wound up on a nonrebreather. Early this a.m. the patient is now on high flow at FiO2 55% . Plans to continue weaning, will provide BiPAP at night while patient is sleeping. WBC count noted to be decreasing. Hospitalist Notes: 10/20: Seen in her bedroom in the presence of nurse Mr. Mushtaq mitchell, patient eating without difficulty, international marketing specialist following, no complaint, no nausea, vomit or diarrhea, maintain good oxygen saturation. Objective Vital Signs Date Time Temp Pulse Resp B/P Pulse Ox O2 Delivery O2 Flow Rate FiO2 10/20/16 12:00 98.3 58 20 144/65 89 10/20/16 12:00 60 10/20/16 10:00 60 10/20/16 08:00 98.1 63 22 155/70 10/20/16 08:00 63 10/20/16 07:42 89 Nasal Cannula 6.00 10/20/16 07:00 90 Nasal Cannula 6.00 10/20/16 06:00 65 10/20/16 04:16 95 Nasal Cannula 6.00 10/20/16 04:00 97.5 57 25 141/69 91 10/20/16 04:00 57 10/20/16 03:11 88 Nasal Cannula 6.00 10/20/16 02:00 82 10/20/16 01:45 Bi-Pap 60 10/20/16 01:40 92 60 10/20/16 00:00 98.1 89 16 147/67 89 10/20/16 00:00 89 10/19/16 22:00 58 10/19/16 20:03 90 Nasal Cannula 6.00 10/19/16 20:00 90 Nasal Cannula 6.00 10/19/16 20:00 72 10/19/16 20:00 98.2 64 25 123/58 90 10/19/16 16:00 65 10/19/16 16:00 98.6 65 18 145/65 88 I/O 10/19/16 10/19/16 10/19/16 10/20/16 10/20/16 10/20/16 07:00 15:00 23:00 07:00 15:00 23:00 Intake Total 442 ml 240 ml 240 ml 158 ml Output Total 225 ml 225 ml 350 ml 200 ml Balance 217 ml 15 ml -110 ml -42 ml Intake Oral 360 ml 240 ml 240 ml 60 ml IV Total 82 ml 98 ml Output Urine Total 225 ml 225 ml 350 ml 200 ml # Bowel Movements 0 0 0 Result Diagram: 10/20/16 0317 10/17/16 0505 Imaging Last Impressions Chest X-Ray 10/16/16 0600 Signed Impressions: Service Date/Time: September 03:52 - CONCLUSION: 1. Improving bibasilar atelectasis. 2. Mild Improving pulmonary edema. Alber Prasad MD Lung Scan- Nuclear Medicine 10/10/16 0000 Signed Impressions: Service Date/Time: Monday, October 10, 2016 09:39 - CONCLUSION: Low probability for pulmonary embolus. Anuradha Anthony MD Procedures No procedures performed. Other Results Laboratory Tests Test 10/17/16 10/18/16 10/18/16 10/20/16 05:05 00:45 03:23 03:17 Sodium Level 138 MEQ/L Potassium Level 4.3 MEQ/L Chloride Level 97 MEQ/L Carbon Dioxide Level 36.3 MEQ/L Anion Gap 5 MEQ/L Blood Urea Nitrogen 34 MG/DL Creatinine 1.06 MG/DL Estimat Glomerular Filtration 50 ML/MIN Rate Random Glucose 139 MG/DL Calcium Level 8.5 MG/DL Phosphorus Level 2.7 MG/DL Magnesium Level 2.4 MG/DL Urine Color YELLOW Urine Turbidity HAZY Urine pH 6.5 Urine Specific [place] 1.025 Urine Protein TRACE mg/dL Urine Glucose (UA) NEG mg/dL Urine Ketones NEG mg/dL Urine Occult Blood NEG Urine Nitrite POS Urine Bilirubin NEG Urine Urobilinogen 2.0 MG/DL Urine Leukocyte Esterase LARGE Urine RBC 4 /hpf Urine WBC 49 /hpf Urine Squamous Epithelial <1 /hpf Cells Urine Bacteria MOD /hpf Urine Mucus FEW /lpf Urine Yeast (Budding) MOD Microscopic Urinalysis Comment CATH-CULTURE IND Neutrophils (%) (Auto) 94.1 % Lymphocytes (%) (Auto) 3.4 % Monocytes (%) (Auto) 2.5 % Eosinophils (%) (Auto) 0.0 % Basophils (%) (Auto) 0.0 % Neutrophils # (Auto) 8.6 TH/MM3 Lymphocytes # (Auto) 0.3 TH/MM3 Monocytes # (Auto) 0.2 TH/MM3 Eosinophils # (Auto) 0.0 TH/MM3 Basophils # (Auto) 0.0 TH/MM3 CBC Comment DIFF FINAL Differential Comment White Blood Count 7.9 TH/MM3 Red Blood Count 3.70 MIL/MM3 Hemoglobin 11.1 GM/DL Hematocrit 34.3 % Mean Corpuscular Volume 92.5 FL Mean Corpuscular Hemoglobin 30.0 PG Mean Corpuscular Hemoglobin 32.4 % Concent Red Cell Distribution Width 15.5 % Platelet Count 148 TH/MM3 Mean Platelet Volume 9.3 FL Objective Remarks GENERAL: Obesity, alert and oriented x 3. SKIN: Warm and dry. HEAD: Normocephalic. EYES: No scleral icterus. No injection noted minimal, clear drainage from right eye. NECK: Supple, trachea midline. No JVD or lymphadenopathy. CARDIOVASCULAR: Regular rate and rhythm without murmurs, gallops, or rubs. RESPIRATORY: Breath sounds equal bilaterally. No accessory muscle use. Scattered rhonchi. GASTROINTESTINAL: Abdomen soft, non-tender, nondistended. EXTREMITIES: No clubbing cyanosis or edema Medications and IVs Current Medications Medications (Trade) Dose Ordered Sig/Lili Route Start Time Stop Time Status Last Admin (NS Flush) 2 ml UNSCH PRN .XX 10/10/16 05:00 10/19/16 03:44 (NS Flush) 2 ml BID .XX 10/10/16 09:00 10/20/16 08:24 (Tylenol) 650 mg Q6H PRN PO 10/10/16 05:00 10/17/16 05:23 (Morphine Inj) 2 mg Q2H PRN IV 10/10/16 05:00 10/18/16 00:44 (Pepcid Inj) 10 mg Q12HR IV PUSH 10/10/16 09:00 10/20/16 08:20 (Zofran Inj) 4 mg Q6H PRN IV 10/10/16 05:00 (Reglan Inj) 5 mg Q6H PRN IV 10/10/16 05:00 Miscellaneous Information 1 Q361D XX 10/10/16 05:00 (Chlorhexidine 2% Cloth) Taper DAILY@04 TOP 10/11/16 04:00 10/07/17 03:59 10/18/16 04:00 Chlorhexidine Gluconate 3 pack 3 pack UNSCH PRN TOP 10/10/16 05:00 10/10/16 06:30 (Levaquin 250 Mg Premix Inj) 50 ml @ 50 mls/hr Q24H IV 10/11/16 03:00 10/20/16 03:01 (Symbicort 160-4.5 Inh) 2 puff Q12HR INH 10/10/16 09:00 10/20/16 11:16 (Percocet 10-325 Mg) 1 tab Q6H PRN PO 10/10/16 05:15 10/20/16 09:20 (Neurontin) 600 mg Q12HR PO 10/10/16 09:00 10/20/16 08:19 (Lovenox Inj) 40 mg Q24H SQ 10/13/16 09:00 10/20/16 08:20 (Colace) 100 mg BID PO 10/13/16 11:00 10/20/16 08:21 (Senna Liq) 8.8 mg DAILY PO 10/14/16 11:00 10/20/16 09:00 (Dulcolax Supp) 10 mg DAILY PRN RECTAL 10/13/16 10:45 (Lopressor Inj) 2.5 mg Q6H PRN IV PUSH 10/13/16 14:00 10/14/16 03:27 (Norvasc) 5 mg DAILY PO 10/13/16 14:00 10/20/16 08:20 (Apresoline Inj) 20 mg Q6H PRN IV 10/14/16 09:45 10/19/16 14:14 (Lopressor) 12.5 mg Q12HR PO 10/14/16 21:00 10/20/16 08:21 (Pill Splitter) 1 ea UNSCH PRN OTHER 10/14/16 21:00 10/15/16 08:16 (SoluMEDROL INJ) 40 mg Q8H IV PUSH 10/18/16 20:00 10/20/16 13:13 A/P Assessment and Plan 1. Respiratory Failure, multifactorial secondary to COPD exacerbation, Bilateral Pulmonary infiltrate, Bilateral pleural effusion, History of Pulmonary embolism without active anticoagulation, VQ scan low probability for PE, to continue Bronchodilator Mucolytic and incentive spirometry, Levaquin day 8, Solu Medrol, Off BiPAP since 10/11 international marketing specialist Doctor Emiliano treviño. CXR 10/16 improvement decreased atelectasis 2. Angina, to continue Metoprolol 12.5 mg BID, 10/14 Echo EF 60-65%, No RWMA, Moderate LVH, Left atrium mildly dilated. 3. Hypokalemia resolved 4. History of DVT and PE on Lovenox 40 mg for DVT prophylaxis. 5. CHF grade I diastolic dysfunction strict blood pressure control 6. Hypertension continue blood pressure medicine as needed for Systolic blood pressure 160 mm Hg or over 7. Anemia Iron deficiency to continue Ferrous Sulfate by mouth daily 8. Sciatica on Gabapentin and Pain medicine. DVT GI prophylaxis - Lovenox 40 mg a day - Pepcid -Heart healthy diet -PT evaluation and treat, patient out of bed to chair , and ambulating around the room with rolling walker Discharge Planning Expected in one to two days. Galileo Gomez MD October 20, 2016 13:51
--- NOTE | 2016-10-20 17:07 | HHI.PR ---
Subjective Remarks 76 YOWF With Hypercapnoic RF,COPD,HTN Feels better Appetite poor denies any pain, slept better Used CPAP briefly now, back on NC Objective Vital Signs Vital Signs Date Time Temp Pulse Resp B/P Pulse Ox O2 Delivery O2 Flow Rate FiO2 10/20/16 15:50 89 BiPAP 60 10/20/16 15:47 90 60 10/20/16 15:13 89 Nasal Cannula 6.00 10/20/16 14:00 58 10/20/16 12:00 98.3 58 20 144/65 89 10/20/16 12:00 60 10/20/16 10:20 21 10/20/16 10:00 60 10/20/16 08:00 98.1 63 22 155/70 10/20/16 08:00 63 10/20/16 07:42 89 Nasal Cannula 6.00 10/20/16 07:00 90 Nasal Cannula 6.00 10/20/16 06:00 65 10/20/16 04:16 95 Nasal Cannula 6.00 10/20/16 04:00 97.5 57 25 141/69 91 10/20/16 04:00 57 10/20/16 03:11 88 Nasal Cannula 6.00 10/20/16 02:00 82 10/20/16 01:45 Bi-Pap 60 10/20/16 01:40 92 60 10/20/16 00:00 98.1 89 16 147/67 89 10/20/16 00:00 89 10/19/16 22:00 58 10/19/16 20:03 90 Nasal Cannula 6.00 10/19/16 20:00 90 Nasal Cannula 6.00 10/19/16 20:00 72 10/19/16 20:00 98.2 64 25 123/58 90 I/O 10/19/16 10/19/16 10/19/16 10/20/16 10/20/16 10/20/16 07:00 15:00 23:00 07:00 15:00 23:00 Intake Total 442 ml 240 ml 240 ml 158 ml 195 ml Output Total 225 ml 225 ml 350 ml 200 ml 275 ml Balance 217 ml 15 ml -110 ml -42 ml -80 ml Intake Oral 360 ml 240 ml 240 ml 60 ml 180 ml IV Total 82 ml 98 ml 15 ml Output Urine Total 225 ml 225 ml 350 ml 200 ml 275 ml # Bowel Movements 0 0 0 0 Result Diagram: 10/20/16 0317 10/17/16 0505 Objective Remarks GENERAL: Elderly WF, mild sob SKIN: Warm and dry. HEAD: Normocephalic. EYES: No scleral icterus. No injection or drainage. NECK: Supple, trachea midline. No JVD or lymphadenopathy. CARDIOVASCULAR: Regular rate and rhythm without murmurs, gallops, or rubs. RESPIRATORY: Breath sounds equal bilaterally. No accessory muscle use. Exp rhonchi. GASTROINTESTINAL: Abdomen soft, non-tender, nondistended. MUSCULOSKELETAL: No cyanosis, or edema. BACK: Nontender without obvious deformity. No CVA tenderness. A/P Assessment and Plan hypercapnoic RF COPD exac HTN Anxiety Hypoxia PLAN: Aerosol nebs Solumedrol IV Supplement 02, 6LNC CPAP prn sob DW Pt and her son at BS. Arvind Cummings MD October 20, 2016 17:07
[2016-10-20] MEDS: guaiFENesin E.R. 600 MG TAB PO SCH (20:32)
[2016-10-21] VITALS (16 sets, daily range): BP systolic 126–177; BP diastolic 55–87; PULSE 52–110; RESP 18–26; TEMP 97.6–98.9; O2SAT 88–98
[2016-10-21] MEDS: LEVOFLOXACIN 250 MG PREMIX INJ 50 ML IV SCH (03:00)
[2016-10-21] MEDS: CHLORHEXIDINE GLUCONATE 2 % 1 PACK (2 CLOTHS) TOP SCH (04:00)
[2016-10-21] MEDS: methylPREDNISolone SOD SUCC 40 MG/1 ML VIAL IV PUSH SCH ×3 (04:33→22:33)
[2016-10-21] MEDS: oxyCODONE/ACETAMINOPHEN 10 MG/325 MG TAB PO PRN ×4 (05:14→23:18)
--- NOTE | 2016-10-21 07:46 | HHI.PR ---
Subjective Remarks clinical operations specialist Notes: 10/10: 76-year-old female presents via EMS for hypoxia and shortness of breath. The patient has a history of COPD and recent pneumonia, history of pulmonary embolism was awakened for breathing treatment and noted to have an oxygen saturation of 48% on 3 L. The patient is chronically on 2-3 L with a normal oxygen saturation between 89-91% according to EMS and the patient. The patient does note increasing shortness of breath which improved with oxygen via nonrebreather. The patient also has a history of pulmonary embolism 2, currently not anticoagulated. She was on Xarelto in the past, but is no longer taking Xarelto. The patient denies any acute swelling of the lower extremities. The patient denies any chest pain, nausea, vomiting, or abdominal pain. She denies any associated fever. 10/11: On BiPAP overnight and was subsequent switched to nonrebreather facemask this morning. 10/12: On partial rebreather O2 since yesterday. Awake and alert, following commands. 10/13: Afebrile. The patient has been on a nonrebreather all night. Plan to transition to high flow nasal cannula this a.m., with change in O2 sat parameters to maintenance of an O2 sat of 90-92%. The patient is on home O2 dependency at 2 L/m nasal cannula. Continue aggressive pulmonary toileting and ordered PT activity out of bed, to chair. 10/14: Early this a.m. approximately 3:00 the patient had an episode of angina. EKG was obtained which revealed basically unchanged right bundle shira block, VT age undetermined. Admission EKG 10/10 showed right bundle shira block, left anterior fascicular block possible anterior VT. The patient was given morphine , serial troponins were obtained, with resolution of symptoms. Initial troponin slightly elevated 0.06, subsequent troponin level pending this afternoon. The patient has been up out of bed ambulating around the room with walker without any difficulty. The patient remains on high flow nasal cannula at 70% maintaining an O2 sat of 89%. Of note the patient is not dyspneic and carry on a full conversation denies any respiratory distress with a sat of 89%. 10/15: The patient continues to require FiO2 of 70%. The patient has been advanced out of bed to chair and ambulating around hospital room without difficulty. Unable to wean sat will continue aggressive pulmonary toileting. Echo obtained no PASP elevation noted. 10/16: The patient continues on FiO2 remained 70%-nasal cannula interchangeably with partial nonrebreather. Activity level increase out of bed and ambulation around the room. Aggressive pulmonary toileting continues. Chest x-ray obtained this morning showing mild pulmonary edema, Lasix 20 mg IV 1 dose initiated. 10/17: Tmax 99.8. FiO2 requirements decreased today to 50% the patient remains on high flow nasal cannula. Patient out of bed ambulating with rolling walker around the room, and up out of bed and chair. Chest x-ray revealed improvement , however noted elevation in WBC count. 10/18: Patient had increasing O2 requirements last night, subsequently wound up on a nonrebreather. Early this a.m. the patient is now on high flow at FiO2 55% . Plans to continue weaning, will provide BiPAP at night while patient is sleeping. WBC count noted to be decreasing. Hospitalist Notes: 10/20: Seen in her bedroom in the presence of nurse Jonathan Mushtaq paula, patient eating without difficulty, business specialist following, no complaint, no nausea, vomit or diarrhea, maintain good oxygen saturation. 10/21: Stable seen in the presence of nurse Miss Hernández, no complaint, as per Physical therapy return to [place] re[facility], at this time will go to PCU, no other complaint. Objective Vital Signs Date Time Temp Pulse Resp B/P Pulse Ox O2 Delivery O2 Flow Rate FiO2 10/21/16 06:14 20 10/21/16 06:00 58 10/21/16 04:00 98.0 55 18 148/62 98 10/21/16 04:00 55 10/21/16 03:30 94 40 10/21/16 02:00 59 10/21/16 01:00 94 60 10/21/16 00:00 59 10/21/16 00:00 98.2 53 18 126/55 91 10/20/16 22:00 60 10/20/16 20:00 59 10/20/16 20:00 88 Nasal Cannula 6.00 10/20/16 20:00 99.2 60 30 174/86 91 10/20/16 19:00 90 Nasal Cannula 6.00 10/20/16 18:00 59 10/20/16 16:00 98.0 59 23 131/65 92 10/20/16 16:00 59 10/20/16 15:50 89 BiPAP 60 10/20/16 15:47 90 60 10/20/16 15:13 89 Nasal Cannula 6.00 10/20/16 14:00 58 10/20/16 12:00 98.3 58 20 144/65 89 10/20/16 12:00 60 10/20/16 10:00 60 10/20/16 08:00 98.1 63 22 155/70 10/20/16 08:00 63 I/O 10/20/16 10/20/16 10/20/16 10/21/16 10/21/16 10/21/16 07:00 15:00 23:00 07:00 15:00 23:00 Intake Total 158 ml 195 ml 700 ml 450 ml Output Total 200 ml 275 ml 400 ml 250 ml Balance -42 ml -80 ml 300 ml 200 ml Intake Oral 60 ml 180 ml 700 ml 200 ml IV Total 98 ml 15 ml 250 ml Output Urine Total 200 ml 275 ml 400 ml 250 ml # Bowel Movements 0 0 Result Diagram: 10/20/16 0317 10/17/16 0505 Imaging Last Impressions Chest X-Ray 10/16/16 0600 Signed Impressions: Service Date/Time: September 03:52 - CONCLUSION: 1. Improving bibasilar atelectasis. 2. Mild Improving pulmonary edema. Alber Prasad MD Lung Scan-V Nuclear Medicine 10/10/16 0000 Signed Impressions: Service Date/Time: Monday, October 10, 2016 09:39 - CONCLUSION: Low probability for pulmonary embolus. Anuradha Anthony MD Procedures No procedures performed. Other Results Laboratory Tests Test 10/17/16 10/18/16 10/18/16 10/20/16 05:05 00:45 03:23 03:17 Sodium Level 138 MEQ/L Potassium Level 4.3 MEQ/L Chloride Level 97 MEQ/L Carbon Dioxide Level 36.3 MEQ/L Anion Gap 5 MEQ/L Blood Urea Nitrogen 34 MG/DL Creatinine 1.06 MG/DL Estimat Glomerular Filtration 50 ML/MIN Rate Random Glucose 139 MG/DL Calcium Level 8.5 MG/DL Phosphorus Level 2.7 MG/DL Magnesium Level 2.4 MG/DL Urine Color YELLOW Urine Turbidity HAZY Urine pH 6.5 Urine Specific [place] 1.025 Urine Protein TRACE mg/dL Urine Glucose (UA) NEG mg/dL Urine Ketones NEG mg/dL Urine Occult Blood NEG Urine Nitrite POS Urine Bilirubin NEG Urine Urobilinogen 2.0 MG/DL Urine Leukocyte Esterase LARGE Urine RBC 4 /hpf Urine WBC 49 /hpf Urine Squamous Epithelial <1 /hpf Cells Urine Bacteria MOD /hpf Urine Mucus FEW /lpf Urine Yeast (Budding) MOD Microscopic Urinalysis Comment CATH-CULTURE IND Neutrophils (%) (Auto) 94.1 % Lymphocytes (%) (Auto) 3.4 % Monocytes (%) (Auto) 2.5 % Eosinophils (%) (Auto) 0.0 % Basophils (%) (Auto) 0.0 % Neutrophils # (Auto) 8.6 TH/MM3 Lymphocytes # (Auto) 0.3 TH/MM3 Monocytes # (Auto) 0.2 TH/MM3 Eosinophils # (Auto) 0.0 TH/MM3 Basophils # (Auto) 0.0 TH/MM3 CBC Comment DIFF FINAL Differential Comment White Blood Count 7.9 TH/MM3 Red Blood Count 3.70 MIL/MM3 Hemoglobin 11.1 GM/DL Hematocrit 34.3 % Mean Corpuscular Volume 92.5 FL Mean Corpuscular Hemoglobin 30.0 PG Mean Corpuscular Hemoglobin 32.4 % Concent Red Cell Distribution Width 15.5 % Platelet Count 148 TH/MM3 Mean Platelet Volume 9.3 FL Objective Remarks GENERAL: Obesity, alert and oriented x 3. SKIN: Warm and dry. HEAD: Normocephalic. EYES: No scleral icterus. No injection noted minimal, clear drainage from right eye. NECK: Supple, trachea midline. No JVD or lymphadenopathy. CARDIOVASCULAR: Regular rate and rhythm without murmurs, gallops, or rubs. RESPIRATORY: Breath sounds equal bilaterally. No accessory muscle use. No wheezing or crackles GASTROINTESTINAL: Abdomen soft, non-tender, nondistended. EXTREMITIES: No clubbing cyanosis or edema Medications and IVs Current Medications Medications (Trade) Dose Ordered Sig/Lili Route Start Time Stop Time Status Last Admin (NS Flush) 2 ml UNSCH PRN .XX 10/10/16 05:00 10/19/16 03:44 (NS Flush) 2 ml BID .XX 10/10/16 09:00 10/20/16 20:58 (Tylenol) 650 mg Q6H PRN PO 10/10/16 05:00 10/17/16 05:23 (Morphine Inj) 2 mg Q2H PRN IV 10/10/16 05:00 10/18/16 00:44 (Pepcid Inj) 10 mg Q12HR IV PUSH 10/10/16 09:00 10/20/16 20:32 (Zofran Inj) 4 mg Q6H PRN IV 10/10/16 05:00 (Reglan Inj) 5 mg Q6H PRN IV 10/10/16 05:00 Miscellaneous Information 1 Q361D XX 10/10/16 05:00 (Chlorhexidine 2% Cloth) Taper DAILY@04 TOP 10/11/16 04:00 10/07/17 03:59 10/21/16 04:00 Chlorhexidine Gluconate 3 pack 3 pack UNSCH PRN TOP 10/10/16 05:00 10/10/16 06:30 (Levaquin 250 Mg Premix Inj) 50 ml @ 50 mls/hr Q24H IV 10/11/16 03:00 10/21/16 03:00 (Symbicort 160-4.5 Inh) 2 puff Q12HR INH 10/10/16 09:00 10/20/16 22:12 (Percocet 10-325 Mg) 1 tab Q6H PRN PO 10/10/16 05:15 10/21/16 05:14 (Neurontin) 600 mg Q12HR PO 10/10/16 09:00 10/20/16 20:35 (Lovenox Inj) 40 mg Q24H SQ 10/13/16 09:00 10/20/16 08:20 (Colace) 100 mg BID PO 10/13/16 11:00 10/20/16 20:33 (Senna Liq) 8.8 mg DAILY PO 10/14/16 11:00 10/20/16 09:00 (Dulcolax Supp) 10 mg DAILY PRN RECTAL 10/13/16 10:45 (Lopressor Inj) 2.5 mg Q6H PRN IV PUSH 10/13/16 14:00 10/14/16 03:27 (Norvasc) 5 mg DAILY PO 10/13/16 14:00 10/20/16 08:20 (Apresoline Inj) 20 mg Q6H PRN IV 10/14/16 09:45 10/19/16 14:14 (Lopressor) 12.5 mg Q12HR PO 10/14/16 21:00 10/20/16 20:34 (Pill Splitter) 1 ea UNSCH PRN OTHER 10/14/16 21:00 10/15/16 08:16 (SoluMEDROL INJ) 40 mg Q8H IV PUSH 10/18/16 20:00 10/21/16 04:33 (Mucinex Er) 600 mg BID PO 10/20/16 21:00 10/20/16 20:32 A/P Assessment and Plan 1. Respiratory Failure, multifactorial secondary to COPD exacerbation, Bilateral Pulmonary infiltrate, Bilateral pleural effusion, History of Pulmonary embolism without active anticoagulation, VQ scan low probability for PE, to continue Bronchodilator Mucolytic and incentive spirometry, Levaquin day 8, Solu Medrol, Off BiPAP since 10/11 business specialist Doctor Emiliano treviño. CXR 10/16 improvement decreased atelectasis 2. Angina, to continue Metoprolol 12.5 mg BID, 10/14 Echo EF 60-65%, No RWMA, Moderate LVH, Left atrium mildly dilated. 3. Sciatica on Gabapentin and Pain medicine. 4. History of DVT and PE on Lovenox 40 mg for DVT prophylaxis. 5. CHF grade I diastolic dysfunction strict blood pressure control 6. Hypertension continue blood pressure medicine as needed for Systolic blood pressure 160 mm Hg or over 7. Anemia Iron deficiency to continue Ferrous Sulfate by mouth daily hemoglobin 11.1 Transfer to Monitored floor from Intensive Care Unit. DVT GI prophylaxis - Lovenox 40 mg a day - Pepcid -Heart healthy diet -PT evaluation and treat, patient out of bed to chair , and ambulating around the room with rolling walker she will go to Rehab facility. Discharge Planning Expected by tomorrow awaiting final recommendations by business specialist. Galileo Gomez MD October 21, 2016 07:46
[2016-10-21] MEDS: ENOXAPARIN SODIUM 40 MG/0.4 ML SYRINGE SQ SCH (07:58)
[2016-10-21] MEDS: FAMOTIDINE 20 MG/2 ML VIAL IV PUSH SCH ×2 (07:59→22:33)
[2016-10-21] MEDS: SENNOSIDES SYRUP 8.8 MG/5 ML CUP PO SCH (07:59)
[2016-10-21] MEDS: amLODIPine BESYLATE 5 MG TAB PO SCH (07:59)
[2016-10-21] MEDS: GABAPENTIN 300 MG CAP PO SCH ×2 (07:59→22:34)
[2016-10-21] MEDS: guaiFENesin E.R. 600 MG TAB PO SCH ×2 (08:00→22:34)
[2016-10-21] MEDS: DOCUSATE SODIUM 100 MG CAP PO SCH ×2 (08:00→22:33)
[2016-10-21] MEDS: METOPROLOL TARTRATE 25 MG TAB PO SCH ×2 (08:00→22:33)
[2016-10-21] MEDS: SODIUM CHLORIDE 0.9% FLUSH 10 ML FLUSH SCH ×2 (09:00→21:00)
[2016-10-21] MEDS: BUDESONIDE-FORMOTEROL 160/4.5 MCG INHALER INH SCH ×2 (09:00→22:34)
--- NOTE | 2016-10-21 19:08 | HHI.PR ---
Subjective Remarks 76 YOWF With Hypercapnoic RF,COPD,HTN Feels better Appetite poor denies any pain, slept better now, back on NC Breathing better Objective Vital Signs Vital Signs Date Time Temp Pulse Resp B/P Pulse Ox O2 Delivery O2 Flow Rate FiO2 10/21/16 18:50 18 10/21/16 18:11 64 10/21/16 16:04 56 10/21/16 16:04 98.7 61 20 159/87 93 10/21/16 14:00 62 10/21/16 12:00 62 10/21/16 12:00 98.9 62 26 154/68 88 10/21/16 10:15 94 Nasal Cannula 6.00 10/21/16 10:00 68 10/21/16 08:00 52 10/21/16 08:00 98.0 52 20 143/71 93 10/21/16 07:00 92 Nasal Cannula 6.00 10/21/16 06:00 58 10/21/16 04:00 98.0 55 18 148/62 98 10/21/16 04:00 55 10/21/16 03:30 94 40 10/21/16 02:00 59 10/21/16 01:00 94 60 10/21/16 00:00 59 10/21/16 00:00 98.2 53 18 126/55 91 10/20/16 22:00 60 10/20/16 20:00 59 10/20/16 20:00 88 Nasal Cannula 6.00 10/20/16 20:00 99.2 60 30 174/86 91 I/O 10/20/16 10/20/16 10/20/16 10/21/16 10/21/16 10/21/16 07:00 15:00 23:00 07:00 15:00 23:00 Intake Total 158 ml 195 ml 700 ml 450 ml 700 ml Output Total 200 ml 275 ml 400 ml 250 ml 550 ml Balance -42 ml -80 ml 300 ml 200 ml 150 ml Intake Oral 60 ml 180 ml 700 ml 200 ml 700 ml IV Total 98 ml 15 ml 250 ml Output Urine Total 200 ml 275 ml 400 ml 250 ml 550 ml # Bowel Movements 0 0 0 Result Diagram: 10/20/16 0317 10/17/16 0505 Objective Remarks GENERAL: Elderly WF, mild sob SKIN: Warm and dry. HEAD: Normocephalic. EYES: No scleral icterus. No injection or drainage. NECK: Supple, trachea midline. No JVD or lymphadenopathy. CARDIOVASCULAR: Regular rate and rhythm without murmurs, gallops, or rubs. RESPIRATORY: Breath sounds equal bilaterally. No accessory muscle use. Exp rhonchi. GASTROINTESTINAL: Abdomen soft, non-tender, nondistended. MUSCULOSKELETAL: No cyanosis, or edema. BACK: Nontender without obvious deformity. No CVA tenderness. A/P Assessment and Plan hypercapnoic RF COPD exac HTN Anxiety Hypoxia PLAN: Aerosol nebs Solumedrol IV Supplement 02, 6LNC CPAP prn sob DC plans for Rehab Arvind Cummings MD October 21, 2016 19:08
[2016-10-21] MEDS: hydrALAZINE HCL 20 MG/ML VIAL IV PRN (23:26)
[2016-10-22] VITALS (12 sets, daily range): BP systolic 141–171; BP diastolic 61–93; PULSE 53–69; RESP 18–20; TEMP 97.7–98.4; O2SAT 92–98
[2016-10-22] MEDS: LEVOFLOXACIN 250 MG PREMIX INJ 50 ML IV SCH (03:24)
[2016-10-22] MEDS: methylPREDNISolone SOD SUCC 40 MG/1 ML VIAL IV PUSH SCH ×2 (03:25→20:22)
[2016-10-22] MEDS: CHLORHEXIDINE GLUCONATE 2 % 1 PACK (2 CLOTHS) TOP SCH (03:29)
[2016-10-22] MEDS: DOCUSATE SODIUM 100 MG CAP PO SCH ×2 (08:09→20:21)
[2016-10-22] MEDS: SENNOSIDES SYRUP 8.8 MG/5 ML CUP PO SCH (08:09)
[2016-10-22] MEDS: guaiFENesin E.R. 600 MG TAB PO SCH ×2 (08:09→20:20)
[2016-10-22] MEDS: GABAPENTIN 300 MG CAP PO SCH ×2 (08:09→20:20)
[2016-10-22] MEDS: oxyCODONE/ACETAMINOPHEN 10 MG/325 MG TAB PO PRN ×2 (08:10→14:48)
[2016-10-22] MEDS: FAMOTIDINE 20 MG/2 ML VIAL IV PUSH SCH ×2 (08:10→20:22)
[2016-10-22] MEDS: BUDESONIDE-FORMOTEROL 160/4.5 MCG INHALER INH SCH ×2 (08:11→20:25)
[2016-10-22] MEDS: ENOXAPARIN SODIUM 40 MG/0.4 ML SYRINGE SQ SCH ×2 (08:11→08:15)
--- NOTE | 2016-10-22 08:11 | HHI.PR ---
Subjective Remarks product distribution specialist Notes: 10/10: 76-year-old female presents via EMS for hypoxia and shortness of breath. The patient has a history of COPD and recent pneumonia, history of pulmonary embolism was awakened for breathing treatment and noted to have an oxygen saturation of 48% on 3 L. The patient is chronically on 2-3 L with a normal oxygen saturation between 89-91% according to EMS and the patient. The patient does note increasing shortness of breath which improved with oxygen via nonrebreather. The patient also has a history of pulmonary embolism 2, currently not anticoagulated. She was on Xarelto in the past, but is no longer taking Xarelto. The patient denies any acute swelling of the lower extremities. The patient denies any chest pain, nausea, vomiting, or abdominal pain. She denies any associated fever. 10/11: On BiPAP overnight and was subsequent switched to nonrebreather facemask this morning. 10/12: On partial rebreather O2 since yesterday. Awake and alert, following commands. 10/13: Afebrile. The patient has been on a nonrebreather all night. Plan to transition to high flow nasal cannula this a.m., with change in O2 sat parameters to maintenance of an O2 sat of 90-92%. The patient is on home O2 dependency at 2 L/m nasal cannula. Continue aggressive pulmonary toileting and ordered PT activity out of bed, to chair. 10/14: Early this a.m. approximately 3:00 the patient had an episode of angina. EKG was obtained which revealed basically unchanged right bundle shira block, MN age undetermined. 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 The patient was given morphine , serial troponins were obtained, with resolution of symptoms. Initial troponin slightly elevated 0.06, subsequent troponin level pending this afternoon. The patient has been up out of bed ambulating around the room with walker without any difficulty. The patient remains on high flow nasal cannula at 70% maintaining an O2 sat of 89%. Of note the patient is not dyspneic and carry on a full conversation denies any respiratory distress with a sat of 89%. 10/15: The patient continues to require FiO2 of 70%. The patient has been advanced out of bed to chair and ambulating around hospital room without difficulty. Unable to wean sat will continue aggressive pulmonary toileting. Echo obtained no PASP elevation noted. 10/16: The patient continues on FiO2 remained 70%-nasal cannula interchangeably with partial nonrebreather. Activity level increase out of bed and ambulation around the room. Aggressive pulmonary toileting continues. Chest x-ray obtained this morning showing mild pulmonary edema, Lasix 20 mg IV 1 dose initiated. 10/17: Tmax 99.8. FiO2 requirements decreased today to 50% the patient remains on high flow nasal cannula. Patient out of bed ambulating with rolling walker around the room, and up out of bed and chair. Chest x-ray revealed improvement , however noted elevation in WBC count. 10/18: Patient had increasing O2 requirements last night, subsequently wound up on a nonrebreather. Early this a.m. the patient is now on high flow at FiO2 55% . Plans to continue weaning, will provide BiPAP at night while patient is sleeping. WBC count noted to be decreasing. Hospitalist Notes: 10/20: Seen in her bedroom in the presence of nurse Mr. Mushtaq mitchell, patient eating without difficulty, rehabilitation construction specialist following, no complaint, no nausea, vomit or diarrhea, maintain good oxygen saturation. 10/21: Stable seen in the presence of nurse Miss Hernández, no complaint, as per Physical therapy return to [facility], at this time will go to PCU, no other complaint. 10/22: Patient with no complaint, status post Physical therapy consult and recommended Rehab at discharge will continue management as recommended by rehabilitation construction specialist and follow as outpatient with PT once cleared for discharge, no nausea, vomit or diarrhea. improving respiratory hearn. Objective Vital Signs Date Time Temp Pulse Resp B/P Pulse Ox O2 Delivery O2 Flow Rate FiO2 10/22/16 04:00 98.0 63 20 165/61 92 10/22/16 00:25 98 40 10/22/16 00:23 63 171/92 93 10/22/16 00:00 Nasal Cannula 6.00 10/21/16 23:58 97.6 57 20 144/70 88 10/21/16 20:00 98.3 62 177/84 92 10/21/16 19:00 110 10/21/16 19:00 Nasal Cannula 6.00 10/21/16 18:50 18 10/21/16 18:11 64 10/21/16 16:04 56 10/21/16 16:04 98.7 61 20 159/87 93 10/21/16 14:00 62 10/21/16 12:00 62 10/21/16 12:00 98.9 62 26 154/68 88 10/21/16 10:15 94 Nasal Cannula 6.00 10/21/16 10:00 68 I/O 10/21/16 10/21/16 10/21/16 10/22/16 10/22/16 10/22/16 07:00 15:00 23:00 07:00 15:00 23:00 Intake Total 450 ml 700 ml 480 ml Output Total 250 ml 550 ml 1400 ml Balance 200 ml 150 ml -920 ml Intake Oral 200 ml 700 ml 480 ml IV Total 250 ml Output Urine Total 250 ml 550 ml 1400 ml # Bowel Movements 0 Result Diagram: 10/20/16 0317 Imaging Last Impressions Chest X-Ray 10/16/16 0600 Signed Impressions: Service Date/Time: September 03:52 - CONCLUSION: 1. Improving bibasilar atelectasis. 2. Mild Improving pulmonary edema. Alber Prasad MD Lung Scan-V Nuclear Medicine 10/10/16 0000 Signed Impressions: Service Date/Time: Monday, October 10, 2016 09:39 - CONCLUSION: Low probability for pulmonary embolus. Anuradha Anthony MD Procedures No procedures performed. Other Results Laboratory Tests Test 10/18/16 10/18/16 10/20/16 00:45 03:23 03:17 Urine Color YELLOW Urine Turbidity HAZY Urine pH 6.5 Urine Specific [place] 1.025 Urine Protein TRACE mg/dL Urine Glucose (UA) NEG mg/dL Urine Ketones NEG mg/dL Urine Occult Blood NEG Urine Nitrite POS Urine Bilirubin NEG Urine Urobilinogen 2.0 MG/DL Urine Leukocyte Esterase LARGE Urine RBC 4 /hpf Urine WBC 49 /hpf Urine Squamous Epithelial <1 /hpf Cells Urine Bacteria MOD /hpf Urine Mucus FEW /lpf Urine Yeast (Budding) MOD Microscopic Urinalysis Comment CATH-CULTURE IND Neutrophils (%) (Auto) 94.1 % Lymphocytes (%) (Auto) 3.4 % Monocytes (%) (Auto) 2.5 % Eosinophils (%) (Auto) 0.0 % Basophils (%) (Auto) 0.0 % Neutrophils # (Auto) 8.6 TH/MM3 Lymphocytes # (Auto) 0.3 TH/MM3 Monocytes # (Auto) 0.2 TH/MM3 Eosinophils # (Auto) 0.0 TH/MM3 Basophils # (Auto) 0.0 TH/MM3 CBC Comment DIFF FINAL Differential Comment White Blood Count 7.9 TH/MM3 Red Blood Count 3.70 MIL/MM3 Hemoglobin 11.1 GM/DL Hematocrit 34.3 % Mean Corpuscular Volume 92.5 FL Mean Corpuscular Hemoglobin 30.0 PG Mean Corpuscular Hemoglobin 32.4 % Concent Red Cell Distribution Width 15.5 % Platelet Count 148 TH/MM3 Mean Platelet Volume 9.3 FL Objective Remarks GENERAL: Obesity, alert and oriented x 3. SKIN: Warm and dry. HEAD: Normocephalic. EYES: No scleral icterus. No injection noted minimal, clear drainage from right eye. NECK: Supple, trachea midline. No JVD or lymphadenopathy. CARDIOVASCULAR: Regular rate and rhythm without murmurs, gallops, or rubs. RESPIRATORY: Decreased breath sounds bilateral with no wheezing or crackles. GASTROINTESTINAL: Abdomen soft, non-tender, nondistended. EXTREMITIES: No clubbing cyanosis or edema Medications and IVs Current Medications Medications (Trade) Dose Ordered Sig/Lili Route Start Time Stop Time Status Last Admin (NS Flush) 2 ml UNSCH PRN .XX 10/10/16 05:00 10/19/16 03:44 (NS Flush) 2 ml BID .XX 10/10/16 09:00 10/21/16 21:00 (Tylenol) 650 mg Q6H PRN PO 10/10/16 05:00 10/17/16 05:23 (Morphine Inj) 2 mg Q2H PRN IV 10/10/16 05:00 10/18/16 00:44 (Pepcid Inj) 10 mg Q12HR IV PUSH 10/10/16 09:00 10/21/16 22:33 (Zofran Inj) 4 mg Q6H PRN IV 10/10/16 05:00 (Reglan Inj) 5 mg Q6H PRN IV 10/10/16 05:00 Miscellaneous Information 1 Q361D XX 10/10/16 05:00 (Chlorhexidine 2% Cloth) Taper DAILY@04 TOP 10/11/16 04:00 10/07/17 03:59 10/21/16 04:00 Chlorhexidine Gluconate 3 pack 3 pack UNSCH PRN TOP 10/10/16 05:00 10/10/16 06:30 (Levaquin 250 Mg Premix Inj) 50 ml @ 50 mls/hr Q24H IV 10/11/16 03:00 10/22/16 03:24 (Symbicort 160-4.5 Inh) 2 puff Q12HR INH 10/10/16 09:00 10/21/16 22:34 (Percocet 10-325 Mg) 1 tab Q6H PRN PO 10/10/16 05:15 10/21/16 23:18 (Neurontin) 600 mg Q12HR PO 10/10/16 09:00 10/21/16 22:34 (Lovenox Inj) 40 mg Q24H SQ 10/13/16 09:00 10/21/16 07:58 (Colace) 100 mg BID PO 10/13/16 11:00 10/21/16 22:33 (Senna Liq) 8.8 mg DAILY PO 10/14/16 11:00 10/21/16 07:59 (Dulcolax Supp) 10 mg DAILY PRN RECTAL 10/13/16 10:45 (Lopressor Inj) 2.5 mg Q6H PRN IV PUSH 10/13/16 14:00 10/14/16 03:27 (Norvasc) 5 mg DAILY PO 10/13/16 14:00 10/21/16 07:59 (Apresoline Inj) 20 mg Q6H PRN IV 10/14/16 09:45 10/21/16 23:26 (Lopressor) 12.5 mg Q12HR PO 10/14/16 21:00 10/21/16 22:33 (Pill Splitter) 1 ea UNSCH PRN OTHER 10/14/16 21:00 10/15/16 08:16 (SoluMEDROL INJ) 40 mg Q8H IV PUSH 10/18/16 20:00 10/22/16 03:25 (Mucinex Er) 600 mg BID PO 10/20/16 21:00 10/21/16 22:34 A/P Assessment and Plan 1. Respiratory Failure, multifactorial secondary to COPD exacerbation, Bilateral Pulmonary infiltrate, Bilateral pleural effusion, History of Pulmonary embolism without active anticoagulation, VQ scan low probability for PE, to continue Bronchodilator Mucolytic and incentive spirometry, Levaquin day 8, Solu Medrol, Off BiPAP since 10/11 rehabilitation construction specialist Doctor Emiliano treviño. CXR 10/16 improvement decreased atelectasis 2. Angina, to continue Metoprolol 12.5 mg BID, 10/14 Echo EF 60-65%, No RWMA, Moderate LVH, Left atrium mildly dilated. 3. Sciatica on Gabapentin and Pain medicine. 4. History of DVT and PE on Lovenox 40 mg for DVT prophylaxis. 5. CHF grade I diastolic dysfunction strict blood pressure control 6. Hypertension continue blood pressure medicine as needed for Systolic blood pressure 160 mm Hg or over 7. Anemia Iron deficiency to continue Ferrous Sulfate by mouth daily hemoglobin 11.1 Transfer to Monitored floor from Intensive Care Unit. DVT GI prophylaxis - Lovenox 40 mg a day - Pepcid -Heart healthy diet -PT evaluation and treat, patient out of bed to chair , and ambulating around the room with rolling walker she will go to Rehab facility. Discharge Planning Expected by tomorrow awaiting final recommendations by rehabilitation construction specialist. Galielo Gomez MD October 22, 2016 08:11
[2016-10-22] MEDS: SODIUM CHLORIDE 0.9% FLUSH 10 ML FLUSH SCH ×2 (08:12→20:25)
[2016-10-22] MEDS: amLODIPine BESYLATE 5 MG TAB PO SCH (08:21)
[2016-10-22] MEDS: METOPROLOL TARTRATE 25 MG TAB PO SCH ×2 (08:21→20:21)
--- NOTE | 2016-10-22 20:04 | HHI.PR ---
Subjective Remarks 76 YOWF With Hypercapnoic RF,COPD,HTN Feels better Appetite poor denies any pain, slept better Breathing better Used CPAP few hrs last night Objective Vital Signs Vital Signs Date Time Temp Pulse Resp B/P Pulse Ox O2 Delivery O2 Flow Rate FiO2 10/22/16 16:00 97.9 57 20 145/73 92 10/22/16 12:00 98.1 61 20 141/68 93 10/22/16 09:23 92 Nasal Cannula 3.00 10/22/16 08:23 64 10/22/16 08:10 Nasal Cannula 6.00 10/22/16 08:01 60 10/22/16 08:00 98.4 57 18 158/76 93 10/22/16 04:00 98.0 63 20 165/61 92 10/22/16 00:25 98 40 10/22/16 00:23 63 171/92 93 10/22/16 00:00 Nasal Cannula 6.00 10/21/16 23:58 97.6 57 20 144/70 88 I/O 10/21/16 10/21/16 10/21/16 10/22/16 10/22/16 10/22/16 07:00 15:00 23:00 07:00 15:00 23:00 Intake Total 450 ml 700 ml 480 ml 480 ml Output Total 250 ml 550 ml 1400 ml Balance 200 ml 150 ml -920 ml 480 ml Intake Oral 200 ml 700 ml 480 ml 480 ml IV Total 250 ml Output Urine Total 250 ml 550 ml 1400 ml # Voids 1 # Bowel Movements 0 0 Result Diagram: 10/20/16 0317 Objective Remarks GENERAL: Elderly WF, mild sob SKIN: Warm and dry. HEAD: Normocephalic. EYES: No scleral icterus. No injection or drainage. NECK: Supple, trachea midline. No JVD or lymphadenopathy. CARDIOVASCULAR: Regular rate and rhythm without murmurs, gallops, or rubs. RESPIRATORY: Breath sounds equal bilaterally. No accessory muscle use. Exp rhonchi. GASTROINTESTINAL: Abdomen soft, non-tender, nondistended. MUSCULOSKELETAL: No cyanosis, or edema. BACK: Nontender without obvious deformity. No CVA tenderness. A/P Assessment and Plan hypercapnoic RF COPD exac HTN Anxiety Hypoxia PLAN: Aerosol nebs Solumedrol IV Supplement 02, 6LNC CPAP prn sob Arvind Cummings MD October 22, 2016 20:04
[2016-10-23] MEDS: LEVOFLOXACIN 250 MG PREMIX INJ 50 ML IV SCH (02:52)
[2016-10-23] MEDS: oxyCODONE/ACETAMINOPHEN 10 MG/325 MG TAB PO PRN ×3 (03:07→16:24)
[2016-10-23] MEDS: CHLORHEXIDINE GLUCONATE 2 % 1 PACK (2 CLOTHS) TOP SCH (04:00)
[2016-10-23 04:10] VITALS: BP 120/59; PULSE 53; RESP 18; TEMP 98.3; O2SAT 91
[2016-10-23 08:00] VITALS: BP 141/67; PULSE 56; RESP 20; TEMP 98.2; O2SAT 94
[2016-10-23] MEDS: SODIUM CHLORIDE 0.9% FLUSH 10 ML FLUSH SCH (08:32)
[2016-10-23] MEDS: BUDESONIDE-FORMOTEROL 160/4.5 MCG INHALER INH SCH (08:32)
[2016-10-23] MEDS: FAMOTIDINE 20 MG/2 ML VIAL IV PUSH SCH (08:33)
[2016-10-23] MEDS: DOCUSATE SODIUM 100 MG CAP PO SCH (08:34)
[2016-10-23] MEDS: guaiFENesin E.R. 600 MG TAB PO SCH (08:35)
[2016-10-23] MEDS: METOPROLOL TARTRATE 25 MG TAB PO SCH (08:35)
[2016-10-23] MEDS: GABAPENTIN 300 MG CAP PO SCH (08:36)
[2016-10-23] MEDS: ENOXAPARIN SODIUM 40 MG/0.4 ML SYRINGE SQ SCH (08:36)
[2016-10-23] MEDS: amLODIPine BESYLATE 5 MG TAB PO SCH ×3 (08:36→08:44)
[2016-10-23] MEDS: SENNOSIDES SYRUP 8.8 MG/5 ML CUP PO SCH (08:36)
[2016-10-23 08:45] VITALS: PULSE 60
[2016-10-23] MEDS: methylPREDNISolone SOD SUCC 40 MG/1 ML VIAL IV PUSH SCH (08:49)
--- NOTE | 2016-10-23 10:49 | HHI.PR ---
Subjective Remarks application integration specialist Notes: 10/10: 76-year-old female presents via EMS for hypoxia and shortness of breath. The patient has a history of COPD and recent pneumonia, history of pulmonary embolism was awakened for breathing treatment and noted to have an oxygen saturation of 48% on 3 L. The patient is chronically on 2-3 L with a normal oxygen saturation between 89-91% according to EMS and the patient. The patient does note increasing shortness of breath which improved with oxygen via nonrebreather. The patient also has a history of pulmonary embolism 2, currently not anticoagulated. She was on Xarelto in the past, but is no longer taking Xarelto. The patient denies any acute swelling of the lower extremities. The patient denies any chest pain, nausea, vomiting, or abdominal pain. She denies any associated fever. 10/11: On BiPAP overnight and was subsequent switched to nonrebreather facemask this morning. 10/12: On partial rebreather O2 since yesterday. Awake and alert, following commands. 10/13: Afebrile. The patient has been on a nonrebreather all night. Plan to transition to high flow nasal cannula this a.m., with change in O2 sat parameters to maintenance of an O2 sat of 90-92%. The patient is on home O2 dependency at 2 L/m nasal cannula. Continue aggressive pulmonary toileting and ordered PT activity out of bed, to chair. 10/14: Early this a.m. approximately 3:00 the patient had an episode of angina. EKG was obtained which revealed basically unchanged right bundle shira block, MA age undetermined. 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 The patient was given morphine , serial troponins were obtained, with resolution of symptoms. Initial troponin slightly elevated 0.06, subsequent troponin level pending this afternoon. The patient has been up out of bed ambulating around the room with walker without any difficulty. The patient remains on high flow nasal cannula at 70% maintaining an O2 sat of 89%. Of note the patient is not dyspneic and carry on a full conversation denies any respiratory distress with a sat of 89%. 10/15: The patient continues to require FiO2 of 70%. The patient has been advanced out of bed to chair and ambulating around hospital room without difficulty. Unable to wean sat will continue aggressive pulmonary toileting. Echo obtained no PASP elevation noted. 10/16: The patient continues on FiO2 remained 70%-nasal cannula interchangeably with partial nonrebreather. Activity level increase out of bed and ambulation around the room. Aggressive pulmonary toileting continues. Chest x-ray obtained this morning showing mild pulmonary edema, Lasix 20 mg IV 1 dose initiated. 10/17: Tmax 99.8. FiO2 requirements decreased today to 50% the patient remains on high flow nasal cannula. Patient out of bed ambulating with rolling walker around the room, and up out of bed and chair. Chest x-ray revealed improvement , however noted elevation in WBC count. 10/18: Patient had increasing O2 requirements last night, subsequently wound up on a nonrebreather. Early this a.m. the patient is now on high flow at FiO2 55% . Plans to continue weaning, will provide BiPAP at night while patient is sleeping. WBC count noted to be decreasing. Hospitalist Notes: 10/20: Seen in her bedroom in the presence of nurse Mr. Mushtaq mitchell, patient eating without difficulty, health services information specialist following, 10/21: Stable seen in the presence of nurse Miss Hernández, no complaint, as per Physical therapy return to [facility], at this time will go to PCU, 10/22: Patient with no complaint, status post Physical therapy consult and recommended Rehab at discharge will continue management as recommended by health services information specialist and follow as outpatient 10/23: Stable in her bedroom, discussed with Doctor Emiliano's Nurse on His office and recommended for discharge to Rehab and follow with him for November 11 at 1:45 PM , no Nausea, vomit or diarrhea, she is stable walking in her bedroom, will need Steroids at discharge and follow with PCP and health services information specialist. Objective Vital Signs Date Time Temp Pulse Resp B/P Pulse Ox O2 Delivery O2 Flow Rate FiO2 10/23/16 08:45 60 10/23/16 08:00 98.2 56 20 141/67 94 10/23/16 07:18 94 Nasal Cannula 6.00 10/23/16 04:10 98.3 53 18 120/59 91 10/22/16 23:42 97.7 53 18 154/70 93 10/22/16 21:29 93 Nasal Cannula 6.00 10/22/16 20:00 Nasal Cannula 6.00 10/22/16 20:00 69 10/22/16 20:00 98.3 64 18 166/93 92 10/22/16 16:00 97.9 57 20 145/73 92 10/22/16 12:00 98.1 61 20 141/68 93 I/O 10/22/16 10/22/16 10/22/16 10/23/16 10/23/16 10/23/16 07:00 15:00 23:00 07:00 15:00 23:00 Intake Total 480 ml 480 ml 240 ml 120 ml Output Total 1400 ml 225 ml 400 ml Balance -920 ml 480 ml 15 ml -280 ml Intake Oral 480 ml 480 ml 240 ml 120 ml Output Urine Total 1400 ml 225 ml 400 ml # Voids 1 # Bowel Movements 0 0 0 Result Diagram: 10/20/16 0317 Imaging Last Impressions Chest X-Ray 10/16/16 0600 Signed Impressions: Service Date/Time: September 03:52 - CONCLUSION: 1. Improving bibasilar atelectasis. 2. Mild Improving pulmonary edema. Alber Prasad MD Lung Scan- Nuclear Medicine 10/10/16 0000 Signed Impressions: Service Date/Time: Monday, October 10, 2016 09:39 - CONCLUSION: Low probability for pulmonary embolus. Anuradha Anthony MD Procedures No procedures performed. Other Results Laboratory Tests Test 10/20/16 03:17 White Blood Count 7.9 TH/MM3 Red Blood Count 3.70 MIL/MM3 Hemoglobin 11.1 GM/DL Hematocrit 34.3 % Mean Corpuscular Volume 92.5 FL Mean Corpuscular Hemoglobin 30.0 PG Mean Corpuscular Hemoglobin 32.4 % Concent Red Cell Distribution Width 15.5 % Platelet Count 148 TH/MM3 Mean Platelet Volume 9.3 FL Objective Remarks GENERAL: Obesity, alert and oriented x 3. SKIN: Warm and dry. HEAD: Normocephalic. EYES: No scleral icterus. No injection noted minimal, clear drainage from right eye. NECK: Supple, trachea midline. No JVD or lymphadenopathy. CARDIOVASCULAR: Regular rate and rhythm without murmurs, gallops, or rubs. RESPIRATORY: Decreased breath sounds bilateral with no wheezing or crackles. GASTROINTESTINAL: Abdomen soft, non-tender, nondistended. EXTREMITIES: No clubbing cyanosis or edema Medications and IVs Current Medications Medications (Trade) Dose Ordered Sig/Lili Route Start Time Stop Time Status Last Admin (NS Flush) 2 ml UNSCH PRN .XX 10/10/16 05:00 10/19/16 03:44 (NS Flush) 2 ml BID .XX 10/10/16 09:00 10/23/16 08:32 (Tylenol) 650 mg Q6H PRN PO 10/10/16 05:00 10/17/16 05:23 (Morphine Inj) 2 mg Q2H PRN IV 10/10/16 05:00 10/18/16 00:44 (Pepcid Inj) 10 mg Q12HR IV PUSH 10/10/16 09:00 10/23/16 08:33 (Zofran Inj) 4 mg Q6H PRN IV 10/10/16 05:00 (Reglan Inj) 5 mg Q6H PRN IV 10/10/16 05:00 Miscellaneous Information 1 Q361D XX 10/10/16 05:00 (Chlorhexidine 2% Cloth) Taper DAILY@04 TOP 10/11/16 04:00 10/07/17 03:59 10/21/16 04:00 Chlorhexidine Gluconate 3 pack 3 pack UNSCH PRN TOP 10/10/16 05:00 10/10/16 06:30 (Levaquin 250 Mg Premix Inj) 50 ml @ 50 mls/hr Q24H IV 10/11/16 03:00 10/23/16 02:52 (Symbicort 160-4.5 Inh) 2 puff Q12HR INH 10/10/16 09:00 10/23/16 08:32 (Percocet 10-325 Mg) 1 tab Q6H PRN PO 10/10/16 05:15 10/23/16 08:36 (Neurontin) 600 mg Q12HR PO 10/10/16 09:00 10/23/16 08:36 (Lovenox Inj) 40 mg Q24H SQ 10/13/16 09:00 10/23/16 08:36 (Colace) 100 mg BID PO 10/13/16 11:00 10/23/16 08:34 (Senna Liq) 8.8 mg DAILY PO 10/14/16 11:00 10/23/16 08:36 (Dulcolax Supp) 10 mg DAILY PRN RECTAL 10/13/16 10:45 (Lopressor Inj) 2.5 mg Q6H PRN IV PUSH 10/13/16 14:00 10/14/16 03:27 (Norvasc) 5 mg DAILY PO 10/13/16 14:00 10/22/16 08:21 (Apresoline Inj) 20 mg Q6H PRN IV 10/14/16 09:45 10/21/16 23:26 (Lopressor) 12.5 mg Q12HR PO 10/14/16 21:00 10/23/16 08:35 (Pill Splitter) 1 ea UNSCH PRN OTHER 10/14/16 21:00 10/15/16 08:16 (Mucinex Er) 600 mg BID PO 10/20/16 21:00 10/23/16 08:35 (SoluMEDROL INJ) 40 mg Q12HR IV PUSH 10/22/16 21:00 10/23/16 08:49 A/P Assessment and Plan 1. Respiratory Failure, multifactorial secondary to COPD exacerbation, Bilateral Pulmonary infiltrate, Bilateral pleural effusion, History of Pulmonary embolism without active anticoagulation, VQ scan low probability for PE, to continue Bronchodilator Mucolytic and incentive spirometry, Levaquin day 8, Solu Medrol, Off BiPAP since 10/11 health services information specialist Doctor Emiliano treviño. CXR 10/16 improvement decreased atelectasis, as per health services information specialist okay to discharge to Rehab recommended for Follow up November 11 at 1;45PM 2. Angina, to continue Metoprolol 12.5 mg BID, 10/14 Echo EF 60-65%, No RWMA, Moderate LVH, Left atrium mildly dilated. 3. Sciatica on Gabapentin and Pain medicine. 4. History of DVT and PE on Lovenox 40 mg for DVT prophylaxis. 5. CHF grade I diastolic dysfunction strict blood pressure control 6. Hypertension controlled. 7. Anemia Iron deficiency to continue Ferrous Sulfate by mouth daily hemoglobin 11.1 Okay to discharge to Rehab on Steroids. DVT GI prophylaxis - Lovenox 40 mg a day - Pepcid -Heart healthy diet -PT evaluation and treat, patient out of bed to chair , and ambulating around the room with rolling walker she will go to Rehab facility. Discharge Planning Discharge To Rehab now. Galileo Gomez MD October 23, 2016 10:49
[2016-10-23] MEDS ORDERED: METO25TA3 PO (10:57)
[2016-10-23] MEDS ORDERED: LEVA500T PO (10:57)
[2016-10-23] MEDS ORDERED: PRED10 PO (10:57)
[2016-10-23] MEDS ORDERED: MUCI600T PO (10:57)
[2016-10-23] MEDS ORDERED: AMLO5 PO (10:57)
[2016-10-23] MEDS ORDERED: OXYC1TAB36 PO (10:57)
[2016-10-23 14:30] VITALS: O2SAT 94
--- NOTE | 2016-10-23 14:58 | HHI.PR ---
Subjective Remarks 76 YOWF With Hypercapnoic RF,COPD,HTN Feels better Appetite poor denies any pain, slept better Breathing better Up in chair " I am waiting to go to rehab" Objective Vital Signs Vital Signs Date Time Temp Pulse Resp B/P Pulse Ox O2 Delivery O2 Flow Rate FiO2 10/23/16 11:50 Nasal Cannula 4.00 92 Humidified 10/23/16 09:40 20 10/23/16 08:45 60 10/23/16 08:00 98.2 56 20 141/67 94 10/23/16 07:18 94 Nasal Cannula 6.00 10/23/16 04:10 98.3 53 18 120/59 91 10/22/16 23:42 97.7 53 18 154/70 93 10/22/16 21:29 93 Nasal Cannula 6.00 10/22/16 20:00 Nasal Cannula 6.00 10/22/16 20:00 69 10/22/16 20:00 98.3 64 18 166/93 92 10/22/16 16:00 97.9 57 20 145/73 92 I/O 10/22/16 10/22/16 10/22/16 10/23/16 10/23/16 10/23/16 07:00 15:00 23:00 07:00 15:00 23:00 Intake Total 480 ml 480 ml 240 ml 120 ml Output Total 1400 ml 225 ml 400 ml Balance -920 ml 480 ml 15 ml -280 ml Intake Oral 480 ml 480 ml 240 ml 120 ml Output Urine Total 1400 ml 225 ml 400 ml # Voids 1 # Bowel Movements 0 0 0 Result Diagram: 10/20/16 0317 Objective Remarks GENERAL: Elderly WF, mild sob SKIN: Warm and dry. HEAD: Normocephalic. EYES: No scleral icterus. No injection or drainage. NECK: Supple, trachea midline. No JVD or lymphadenopathy. CARDIOVASCULAR: Regular rate and rhythm without murmurs, gallops, or rubs. RESPIRATORY: Breath sounds equal bilaterally. No accessory muscle use. Exp rhonchi. GASTROINTESTINAL: Abdomen soft, non-tender, nondistended. MUSCULOSKELETAL: No cyanosis, or edema. BACK: Nontender without obvious deformity. No CVA tenderness. A/P Assessment and Plan hypercapnoic RF COPD exac HTN Anxiety Hypoxia PLAN: Aerosol nebs Solumedrol IV Supplement 02, 3LNC DC Plans for Rehab Will FU in office. Arvind Cummings MD October 23, 2016 14:58
[2016-10-23 16:00] VITALS: BP 149/67; PULSE 61; RESP 20; TEMP 98; O2SAT 92
--- NOTE | 2016-10-24 04:24 | PQ ---
Physician Query Response Document PATIENT: HARIS CARTAGENA : 1940 ADMIT DATE: 10/10/2016 3:33 AM DISCH DATE: 10/23/2016 6:27 PM RESPONDING PROVIDER #: [email or web address] QUERY TEXT: Respiratory Failure Acuity and Type Respiratory Failure is documented in the Medical Record. Please specify the type and acuity (includes suspected or probable) Such as: -- Acute respiratory failure - With hypoxia - With hypercapnia -- Chronic respiratory failure - With hypoxia - With hypercapnia -- Acute on chronic respiratory failure - With hypoxia - With hypercapnia -- Other, please specify The patient's Clinical Indicators include: ABG reveals a pH is 7.217 with PCO2 96.3 and a bicarbonate 37.7, consistent with partially compensate d respiratory acidosis. Patient was hypoxic 55% on room air, 70% on 3 L, therefore, was placed on Bi PAP Query created by: Jenn Qureshi on 10/10/2016 12:10 PM RESPONSE TEXT: Acute respiratory failure - With hypoxia Electronically signed by: Austin Dia MD 10/24/2016 4:21 AM
[2016-11-12] MEDS ORDERED: MILKSUS PO (22:37)
--- NOTE | 2016-11-28 08:06 | HHI.DS ---
Discharge Summary Admission Date Oct 10, 2016 at 03:33 Discharge Date: October 23, 2016 Admitting Diagnosis hypoxia, pneumonia, pleural effusion, a [employer], hyperk (1) Chronic kidney disease, stage II (mild) ICD Code: N18.2 Diagnosis: Secondary (2) Tobacco abuse ICD Code: Z72.0 Diagnosis: Secondary (3) Respiratory failure with hypoxia ICD Code: J96.91 Diagnosis: Principal Procedures NO Brief History - From Admission 76-year-old female presents via EMS for hypoxia and shortness of breath. The patient has a history of COPD and recent pneumonia, history of pulmonary embolism was awakened for breathing treatment and noted to have an oxygen saturation of 48% on 3 L. The patient is chronically on 2-3 L with a normal oxygen saturation between 89-91% according to EMS and the patient. The patient does note increasing shortness of breath which improved with oxygen via nonrebreather. The patient also has a history of pulmonary embolism 2, currently not anticoagulated. She was on Xarelto in the past, but is no longer taking Xarelto. The patient denies any acute swelling of the lower extremities. The patient denies any chest pain, nausea, vomiting, or abdominal pain. She denies any associated fever. Imaging Last Impressions Chest X-Ray 10/16/16 0600 Signed Impressions: Service Date/Time: September 03:52 - CONCLUSION: 1. Improving bibasilar atelectasis. 2. Mild Improving pulmonary edema. Alber Prasad MD Lung Scan-V Nuclear Medicine 10/10/16 0000 Signed Impressions: Service Date/Time: Monday, October 10, 2016 09:39 - CONCLUSION: Low probability for pulmonary embolus. Anuradha Anthony MD PE at Discharge GENERAL: Obesity, alert and oriented x 3. SKIN: Warm and dry. HEAD: Normocephalic. EYES: No scleral icterus. No injection noted minimal, clear drainage from right eye. NECK: Supple, trachea midline. No JVD or lymphadenopathy. CARDIOVASCULAR: Regular rate and rhythm without murmurs, gallops, or rubs. RESPIRATORY: Decreased breath sounds bilateral with no wheezing or crackles. GASTROINTESTINAL: Abdomen soft, non-tender, nondistended. EXTREMITIES: No clubbing cyanosis or edema Hospital Course business specialist Notes: 10/10: 76-year-old female presents via EMS for hypoxia and shortness of breath. The patient has a history of COPD and recent pneumonia, history of pulmonary embolism was awakened for breathing treatment and noted to have an oxygen saturation of 48% on 3 L. The patient is chronically on 2-3 L with a normal oxygen saturation between 89-91% according to EMS and the patient. The patient does note increasing shortness of breath which improved with oxygen via nonrebreather. The patient also has a history of pulmonary embolism 2, currently not anticoagulated. She was on Xarelto in the past, but is no longer taking Xarelto. The patient denies any acute swelling of the lower extremities. The patient denies any chest pain, nausea, vomiting, or abdominal pain. She denies any associated fever. 10/11: On BiPAP overnight and was subsequent switched to nonrebreather facemask this morning. 10/12: On partial rebreather O2 since yesterday. Awake and alert, following commands. 10/13: Afebrile. The patient has been on a nonrebreather all night. Plan to transition to high flow nasal cannula this a.m., with change in O2 sat parameters to maintenance of an O2 sat of 90-92%. The patient is on home O2 dependency at 2 L/m nasal cannula. Continue aggressive pulmonary toileting and ordered PT activity out of bed, to chair. 10/14: Early this a.m. approximately 3:00 the patient had an episode of angina. EKG was obtained which revealed basically unchanged right bundle shira block, OK age undetermined. Admission EKG 10/10 showed right bundle shira block, left anterior fascicular block possible anterior OK. The patient was given morphine , serial troponins were obtained, with resolution of symptoms. Initial troponin slightly elevated 0.06, subsequent troponin level pending this afternoon. The patient has been up out of bed ambulating around the room with walker without any difficulty. The patient remains on high flow nasal cannula at 70% maintaining an O2 sat of 89%. Of note the patient is not dyspneic and carry on a full conversation denies any respiratory distress with a sat of 89%. 10/15: The patient continues to require FiO2 of 70%. The patient has been advanced out of bed to chair and ambulating around hospital room without difficulty. Unable to wean sat will continue aggressive pulmonary toileting. Echo obtained no PASP elevation noted. 10/16: The patient continues on FiO2 remained 70%-nasal cannula interchangeably with partial nonrebreather. Activity level increase out of bed and ambulation around the room. Aggressive pulmonary toileting continues. Chest x-ray obtained this morning showing mild pulmonary edema, Lasix 20 mg IV 1 dose initiated. 10/17: Tmax 99.8. FiO2 requirements decreased today to 50% the patient remains on high flow nasal cannula. Patient out of bed ambulating with rolling walker around the room, and up out of bed and chair. Chest x-ray revealed improvement , however noted elevation in WBC count. 10/18: Patient had increasing O2 requirements last night, subsequently wound up on a nonrebreather. Early this a.m. the patient is now on high flow at FiO2 55% . Plans to continue weaning, will provide BiPAP at night while patient is sleeping. WBC count noted to be decreasing. Hospitalist Notes: 10/20: Seen in her bedroom in the presence of nurse Jonathan Mushtaq paula, patient eating without difficulty, reimbursement specialist following, 10/21: Stable seen in the presence of nurse Miss Hernández, no complaint, as per Physical therapy return to [facility], at this time will go to PCU, 10/22: Patient with no complaint, status post Physical therapy consult and recommended Rehab at discharge will continue management as recommended by reimbursement specialist and follow as outpatient 10/23: Stable in her bedroom, discussed with Doctor Cummings's Nurse on His office and recommended for discharge to Rehab and follow with him for November 11 at 1:45 PM , no Nausea, vomit or diarrhea, she is stable walking in her bedroom, will need Steroids at discharge and follow with PCP and reimbursement specialist. Assessment and Plan 1. Respiratory Failure, multifactorial secondary to COPD exacerbation, Bilateral Pulmonary infiltrate, Bilateral pleural effusion, History of Pulmonary embolism without active anticoagulation, VQ scan low probability for PE, to continue Bronchodilator Mucolytic and incentive spirometry, Levaquin day 8, Solu Medrol, Off BiPAP since 10/11 reimbursement specialist Doctor Cummings following. CXR 10/16 improvement decreased atelectasis, as per reimbursement specialist okay to discharge to Rehab recommended for Follow up November 11 at 1;45PM 2. Angina, to continue Metoprolol 12.5 mg BID, 10/14 Echo EF 60-65%, No RWMA, Moderate LVH, Left atrium mildly dilated. 3. Sciatica on Gabapentin and Pain medicine. 4. History of DVT and PE on Lovenox 40 mg for DVT prophylaxis. 5. CHF grade I diastolic dysfunction strict blood pressure control 6. Hypertension controlled. 7. Anemia Iron deficiency to continue Ferrous Sulfate by mouth daily hemoglobin 11.1 Okay to discharge to Rehab on Steroids. DVT GI prophylaxis - Lovenox 40 mg a day - Pepcid -Heart healthy diet -PT evaluation and treat, patient out of bed to chair , and ambulating around the room with rolling walker she will go to Rehab facility. Discharge Planning Discharge To Rehab now. Pt Condition on Discharge: Good Discharge Disposition: Discharge to SNF Discharge Time: > 30 minutes Discharge Instructions DIET: Follow Instructions for: Heart Healthy Diet Speech Therapy-Diet Recommends: Pureed Activities you can perform: Regular-No Restrictions Other Activity Instructions: Follow PT recommendations at discharge Galileo Gomez MD Nov 28, 2016 08:05
== END 2016-10-23 18:27 | DRG 189 ==
LOC: NEPE 02:07 → NEDA 03:33 → N03B 06:19 → N03A 10-17 19:30 → HCIS 10-21 15:02 → N04A 10-21 23:52
PROVIDERS: ADMIT Internal Medicine; ATTEND Internal Medicine
PROC: 5A09357 Assistance with Respiratory Ventilation, Less than 24 Consecutive Hours, Continuous Positive Airway Pressure (ICD-10-PCS; principal; 2016-10-10)
DX: J96.01 Acute respiratory failure with hypoxia (principal); J18.9 Pneumonia, unspecified organism; N17.9 Acute kidney failure, unspecified; I11.0 Hypertensive heart disease with heart failure; E87.2 Acidosis; I50.32 Chronic diastolic (congestive) heart failure; Q61.3 Polycystic kidney, unspecified; J44.0 Chronic obstructive pulmonary disease with (acute) lower respiratory infection; I45.2 Bifascicular block; J44.1 Chronic obstructive pulmonary disease with (acute) exacerbation; J98.11 Atelectasis; Z99.81 Dependence on supplemental oxygen; E87.6 Hypokalemia; E78.5 Hyperlipidemia, unspecified; M79.7 Fibromyalgia; E87.5 Hyperkalemia; J96.02 Acute respiratory failure with hypercapnia; E03.9 Hypothyroidism, unspecified; M54.30 Sciatica, unspecified side; E66.9 Obesity, unspecified; K80.20 Calculus of gallbladder without cholecystitis without obstruction; H26.9 Unspecified cataract; D50.9 Iron deficiency anemia, unspecified; K76.0 Fatty (change of) liver, not elsewhere classified; I20.9 Angina pectoris, unspecified; G25.81 Restless legs syndrome; F41.9 Anxiety disorder, unspecified; Z68.27 Body mass index [BMI] 27.0-27.9, adult; Z86.711 Personal history of pulmonary embolism; Z86.718 Personal history of other venous thrombosis and embolism; Z87.01 Personal history of pneumonia (recurrent); Z87.891 Personal history of nicotine dependence; Z88.0 Allergy status to penicillin; Z88.1 Allergy status to other antibiotic agents; Z92.3 Personal history of irradiation
CPT/HCPCS: 36600; 71010; 78582; 80048; 80053; 81001; 82550; 82805; 82948; 83605; 83735; 83880; 84100; 84132; 84484; 85025; 85027; 85610; 85730; 87040; 87086; 87641; 93005; 93306; 94002; 94003; 94150; 94640; 94664; 96372; 96374; 96375; A9540; A9567; J0171; J0360; J0461; J1650; J1940; J1956; J2270; J2920; J2930; J7030

== ENCOUNTER 2016-11-04 20:42 | Emergency (ER) | payer MEDICARE, OTHER ==
[~2016-11-04 20:42] MED LIST changes: -ALEN1TAB48 PO; -AMLO10CA PO; +AMLO5 PO; +CYCL5TAB PO; +FERR325T PO; -LEVA250T PO; +LEVA500T PO; +METO25TA3 PO; -MIRTA15 PO; +MUCI600T PO; -NYST10007 TOPICAL; -XARE20TA PO
[2016-11-04 21:03] VITALS: PULSE 66; RESP 22; O2SAT 86
[2016-11-04 21:09] VITALS: BP 137/71
[2016-11-04] MEDS ORDERED: ALPR.25 PO (21:15)
[2016-11-04] MEDS ORDERED: SPIR25TA PO (21:15)
[2016-11-04] MEDS ORDERED: LEVA3NEB12 NEB (21:15)
[2016-11-04] MEDS ORDERED: XARE10TA PO (21:15)
[2016-11-04] MEDS ORDERED: MIRA33504 PO (21:15)
[2016-11-04] MEDS ORDERED: SODIUM CHLORIDE 0.9% FLUSH 10 ML FLUSH IVF PRN (21:30)
--- NOTE | 2016-11-04 21:37 | PD ---
HPI Chief Complaint: Respiratory Symptoms Time Seen by Provider: 21:07 Travel History International Travel<30 days: No Contact w/Intl Traveler<30days: No Traveled to known affect area: No History of Present Illness HPI The patient is a 76 year old female who presents to the [facility] emergency department with a history of increased shortness of breath that she reports began after returning back from a visit with her accuracy expert, Dr. Cummings earlier today. The patient reports that she resides at a local longterm. She reports that she has been on 3 L nasal cannula O2 continuously, however he did increase this to 4 L this afternoon. The patient reports that she has been also dealing with constipation and did drink magnesium citrate as well as MiraLAX. She reports that she had a large bowel movement prior to arrival. The patient denies having any cough or increased congestion. She denies having any fevers or chills. From reviewing the electronic medical record, the patient does have a history of pulmonary embolism, however the patient reports that she was not aware of this. 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 The patient had been off of Xarelto when she was admitted on October 10, 2016, however this was restarted. She did take it according to her medication record from earlier today. The patient reports that she quit smoking 4 years ago. She denies having any nausea, vomiting, or abdominal pain at this time. She does report having chronic lower extremity edema which has been worse today. She denies having any known history of congestive heart failure. She denies having any chest pain or chest pressure. The patient denies any neck pain, urinary symptoms, or neurologic symptoms. ON LICENSE OF [facility] Past Medical History Narrative Medical The patient's past medical history is significant for COPD, chronically O2 dependent at 4 L, history of respiratory failure with intubation previously, history of pneumonia, history of congestive heart failure according to the electronic medical record with grade 1 diastolic dysfunction, history of hypertension, polycystic kidney disease, DVT, PE, anemia, dyslipidemia, tobacco use, arthritis, fibromyalgia, history of a goiter, degenerative joint disease of the spine, history of fatty liver with cholelithiasis, diverticulosis, restless leg syndrome, sciatica. Arthritis: Yes Anxiety: No Depression: No Heart Rhythm Problems: No Cancer: Yes Cardiovascular Problems: Yes High Cholesterol: Yes Chemotherapy: No Congestive Heart Failure: Yes COPD: Yes Coronary Artery Disease: No Diabetes: No Diminished Hearing: Yes Deep Vein Thrombosis: Yes (x2 ) Fibromyalgia: Yes Gastrointestinal Disorders: No Genitourinary: Yes Headaches: Yes Hypertension: Yes Immune Disorder: No Implanted Vascular Access Dvce: No Musculoskeletal: Yes Neurologic: Yes Psychiatric: No Reproductive: No Respiratory: Yes (HOME O2/OXYGEN DEPENDENT) Radiation Therapy: Yes (FOR GOITER) Thyroid Disease: Yes ?: Not Menopausal: Yes Tubal Ligation: Yes Past Surgical History Narrative Surgical The patient's past surgical history is significant for tonsillectomy, cataract surgery, bilateral tubal ligation. Ear Surgery: Yes (INPLANT RT/ CATARACT) Eye Surgery: Yes (CATARACT) Gynecologic Surgery: Yes (TUBAL LIGATION) Tonsillectomy: Yes Other Surgery: Yes Social History Alcohol Use: No Tobacco Use: No (quit 2013 smoked 1 ppd cigs for 57 yrs) Substance Use: No Allergies-Medications (Allergen,Severity, Reaction): Coded Allergies: Azithromycin (Verified Allergy, Severe, STOMACH CRAMPS, 10/10/16) Penicillin (Verified Allergy, Severe, 10/10/16) Reported Meds & Prescriptions Reported Meds & Active Scripts Active Levaquin (Levofloxacin) 500 Mg Tab 500 Mg PO DAILY Prednisone 10 Mg Tab 10 Mg PO DAILY TAKE FOUR TABLETS BY MOUTH DAILY FOR THREE DAYS THEN TAKE THREE TABLETS BY MOUTH DAILY FOR THREE DAYS THEN TAKE TWO TABLETS BY MOUTH DAILY FOR TWO DAYS THEN TAKE ONE TABLET DAILY. Metoprolol Tartrate 25 Mg Tab 12.5 Mg PO Q12HR HOLD FOR SYSTOLIC BLOOD PRESSURE IN 110 MM HG OR BELOW OR HEART RATE IN 60 OR BELOW. Mucinex ER 12 HR (Guaifenesin) 600 Mg Dennis 600 Mg PO BID Norvasc (Amlodipine Besylate) 5 Mg Tab 5 Mg PO DAILY Oxycodone-Acetaminophen 10-325 mg Tab 1 Tab PO Q6H PRN DO NOT USE THIS MEDICINE IF YOU WILL DRIVE A CAR OR USE A MACHINE, ONLY USE IT WHEN RESTING AT HOME. Duoneb (Ipratropium-Albuterol Neb) 0.5-2.5 Mg/3 Ml Neb 1 Ampule NEB Q4HR NEB 30 Days Symbicort Inh (Budesonide/Formoterol Fumarate) 160-4.5 Mcg/Act Aero 2 Puff INH Q12HR 30 Days Albuterol Neb (Albuterol Sulfate) 1.25 Mg/3 Ml Neb 1.25 Mg NEB Q2HR NEB PRN 30 Days Reported Xopenex Neb (Levalbuterol HCl) 1.25 Mg/3 Ml Neb 1.25 Mg NEB ONCE PRN Xanax (Alprazolam) 0.25 Mg Tab 0.25 Mg PO Q8H PRN Xarelto (Rivaroxaban) 10 Mg Tab 10 Mg PO DAILY Spironolactone 25 Mg Tab 12.5 Mg PO DAILY Miralax Powder (Polyethylene Glycol 3350 Powder) 17 Gm Powd 17 Gm PO DAILY Mix and dissolve one measuring cap-ful (17 grams) in water or juice. Flexeril (Cyclobenzaprine HCl) 5 Mg Tab 5 Mg PO TID Gabapentin 600 Mg Tab 600 Mg PO TID Ferrous Sulfate 325 Mg Tab 325 Mg PO DAILY Review of Systems Except as stated in HPI: all other systems reviewed are Neg General / Constitutional: No: Fever Eyes: No: Visual changes HENT: No: Headaches Cardiovascular: Positive: Dyspnea on exertion, No: Chest Pain or Discomfort Respiratory: Positive: Shortness of Breath, No: Cough Gastrointestinal: Positive: Constipation, No: Nausea, Vomiting, Diarrhea, Abdominal Pain, Indigestion, Loss of Appetite Genitourinary: No: Dysuria Musculoskeletal: No: Pain Skin: No Rash Neurologic: No: Weakness Psychiatric: No: Depression Endocrine: No: Polydipsia Hematologic/Lymphatic: No: Easy Bruising Physical Exam Narrative General: The patient is well-developed well-nourished female in no acute distress. Head and Neck exam: Head is normocephalic atraumatic. Eyes: EOMI, pupils are equal round and reactive to light. Nose: Midline septum with pink mucous membranes Mouth: Dentition unremarkable. Moist mucus membranes. Posterior oropharynx is not erythematous. No tonsillar hypertrophy. Uvula midline. Airway patent. Neck: No palpable lymphadenopathy. No nuchal rigidity. No thyromegaly. Cardiovascular: Regular rate and rhythm without murmurs, gallops, or rubs. Lungs: Soft expiratory wheezes audible bilaterally. No rhonchi, no crackles. No accessory muscle use. The patient has nasal cannula in place and is currently on 4 L. The patient has no paroxysmal abdominal breathing, no accessory muscle use. The patient at this time reports feeling improved. Abdomen: Soft, without tenderness to palpation in all 4 quadrants of the abdomen. No guarding, rebound, or rigidity. Normal bowel sounds are audible. No tenderness on palpation of McBurney's point. Negative Elverta sign. Extremities: No clubbing or cyanosis. The patient has 1+ edema bilateral lower extremities. 2+ pulses in all 4 extremities. No calf tenderness on palpation. Back: No costovertebral angle tenderness to palpation. Neurologic Exam: Grossly nonfocal. Skin Exam: No rash noted. Intact skin that is warm and dry. Data Data Last Documented VS Vital Signs Date Time Temp Pulse Resp B/P Pulse Ox O2 Delivery O2 Flow Rate FiO2 11/04/16 22:03 97 Nasal Cannula 5 11/04/16 21:09 137/71 11/04/16 21:03 66 22 Orders Complete Blood Count With Diff (11/04/16 21:22) Comprehensive Metabolic Panel (11/04/16 21:22) B-Type Natriuretic Peptide (11/04/16 21:22) Act Partial Throm Time (Ptt) (11/04/16 21:22) Prothrombin Time / Inr (Pt) (11/04/16 21:22) Magnesium (Mg) (11/04/16 21:22) Iv Access Insert/Monitor (11/04/16 21:22) Electrocardiogram (11/04/16 21:22) Ecg Monitoring (11/04/16 21:22) Oximetry (11/04/16 21:22) Oxygen Administration (11/04/16 21:22) Chest, Single Ap (11/04/16 21:22) Sodium Chloride 0.9% Flush (Ns Flush) (11/04/16 21:30) Albuterol-Ipratropium Neb (Duoneb Neb) (11/04/16 21:30) Labs Laboratory Tests Test 11/04/16 21:41 White Blood Count 5.8 TH/MM3 Red Blood Count 3.68 MIL/MM3 Hemoglobin 11.4 GM/DL Hematocrit 34.5 % Mean Corpuscular Volume 93.8 FL Mean Corpuscular Hemoglobin 30.9 PG Mean Corpuscular Hemoglobin 33.0 % Concent Red Cell Distribution Width 16.7 % Platelet Count 208 TH/MM3 Mean Platelet Volume 7.8 FL Neutrophils (%) (Auto) 77.6 % Lymphocytes (%) (Auto) 14.7 % Monocytes (%) (Auto) 7.4 % Eosinophils (%) (Auto) 0.1 % Basophils (%) (Auto) 0.2 % Neutrophils # (Auto) 4.5 TH/MM3 Lymphocytes # (Auto) 0.8 TH/MM3 Monocytes # (Auto) 0.4 TH/MM3 Eosinophils # (Auto) 0.0 TH/MM3 Basophils # (Auto) 0.0 TH/MM3 CBC Comment DIFF FINAL Differential Comment Prothrombin Time 10.7 SEC Prothromb Time International 1.0 RATIO Ratio Activated Partial 27.9 SEC Thromboplast Time Sodium Level 137 MEQ/L Potassium Level 5.2 MEQ/L Chloride Level 91 MEQ/L Carbon Dioxide Level 43.7 MEQ/L Anion Gap 2 MEQ/L Blood Urea Nitrogen 20 MG/DL Creatinine 0.95 MG/DL Estimat Glomerular Filtration 57 ML/MIN Rate Random Glucose 97 MG/DL Calcium Level 9.1 MG/DL Magnesium Level 2.8 MG/DL Total Bilirubin 0.4 MG/DL Aspartate Amino Transf 23 U/L (AST/SGOT) Alanine Aminotransferase 30 U/L (ALT/SGPT) Alkaline Phosphatase 35 U/L B-Type Natriuretic Peptide 76 PG/ML Total Protein 6.1 GM/DL Albumin 3.1 GM/DL MDM Medical Decision Making Medical Screen Exam Complete: Yes Emergency Medical Condition: Yes Medical Record Reviewed: Yes Interpretation(s) Last Impressions Chest X-Ray 11/04/162121 Signed Impressions: Service Date/Time: Friday, November 04, 2016 21:41 - CONCLUSION: 1. Bilateral effusions and basilar airspace disease. Findings stable to slightly increased from October 16. Neo Jacome MD Differential Diagnosis COPD exacerbation, versus pneumonia, versus congestive heart failure exacerbation Narrative Course During the course of the patients emergency department visit, the patients history, examination, and differential diagnosis were reviewed with the patient. The patient had IV access obtained and blood work sent for analysis. The patient is placed on a quality assurance monitor with oximetry and blood pressure monitoring. An EKG was done on arrival that shows a sinus rhythm of 62, marked left axis deviation, right bundle branch block, QRS duration of 132 ms, QTC 422 ms. Compared to a prior EKG done in September of this year and shows no acute abnormality. From reviewing the electronic medical record, the patient was discharged back to her longterm on 5 L nasal cannula O2 saturating 92%. The patient at this point will be continued on the 4 L nasal cannula O2, and given 2 DuoNeb's. The patient will be reassessed and nasal cannula O2 increased to 5 L if necessary. The patient was initially provided Solu-Medrol 125 mg IV. The patients laboratory studies were reviewed and remarkable for a white count of 5.8, hemoglobin 11.4, platelets 208 with 77.6 neutrophils, CMP is remarkable for a potassium of 5.2, CO2 43.7, BUN 20, creatinine 0.95, GFR 57, magnesium 2.8 , alkaline phosphatase 35, BNP 76, PT PTT within normal limits. The patient's kidney function was compared to prior evaluation and she appears to be at baseline. Radiology studies were reviewed and remarkable for a chest x-ray that shows bilateral effusions and bibasilar airspace disease, findings stable to slightly increased compared to October 16. The patient was reexamined on the 4 L nasal cannula O2 and was sleeping on my arrival to the room. The patient was resting comfortably and noted to have O2 saturations of 95-96%. The patient was awakened and continued to have O2 saturations of 92-95%. The patient reports feeling well and at her baseline. The patient will therefore be discharged back to her [facility] facility. She is instructed to continue on the 4 L nasal cannula O2 that was recommended by her accuracy expert. The patient is resting comfortably and feels better, is alert and in no distress. The patients results and examination findings were discussed with the patient. The repeat examination is unremarkable and benign. The history, exam, diagnostic testing, and current condition do not suggest any significant pathology to warrant further testing, continued ED treatment, admission, or surgical evaluation at this point. The vital signs have been stable. The patient does not have uncontrollable pain, intractable vomiting, or other significant symptoms. The patient's condition is stable and appropriate for discharge. The patient will pursue further outpatient evaluation with a primary care physician or other designated or consulting physician as indicated in the discharge instructions. The patient expressed understanding and was agreeable with this plan. Diagnosis Primary Impression: COPD exacerbation Referrals: Arvind Cummings MD 1 week Primary Care Physician 2 days Patient Instructions: COPD (Chronic Obstructive Pulmonary Disease) (ED), General Instructions Additional Instructions: The patient will have her prednisone taper discontinued and instead be started on a Medrol Dosepak taper. Med/Other Pt SpecificInfo: Prescription(s) given, Med Stopped (. Prednisone taper) Scripts Methylprednisolone Dosepak (Medrol Dosepak)4 Mg Dspk4 Mg PO DIRECTED #1 DSPK Ref 0 Per Pharmacist direction Prov:Marie Diaz MD 11/05/16 Disposition: 01 DISCHARGE HOME Condition: Stable Marie Diaz MD November 04, 2016 21:37
[2016-11-04] MEDS: RESP: ALBUTEROL 2.5 MG/IPRATROPIUM 0.5 MG NEB (SCH) INH ×2 (21:40→21:41)
[2016-11-04 21:41] VITALS: O2SAT 93
[2016-11-04 21:53] LABS: AUTOMATED NEUTROPHIL # 4.5 TH/MM3 (1.8-7.7); BASOPHIL % 0.2 % (0.0-2.0); EOSINOPHIL % 0.1 % (0.0-4.0); HEMATOCRIT 34.5 % (35.0-46.0); HEMO FLAGS DIFF FINAL; LYMPH % 14.7 % (9.0-44.0); LYMPHOCYTE # 0.8 TH/MM3 (1.0-4.8); MEAN CELL VOLUME 93.8 FL (80.0-100.0); MEAN CORPUSCULAR HEMOGLOBIN 30.9 PG (27.0-34.0); MONO % 7.4 % (0.0-8.0); NEUT % 77.6 % (16.0-70.0); PLATELET COUNT 208 TH/MM3 (150-450); RED BLOOD COUNT 3.68 MIL/MM3 (4.00-5.30); RED CELL DISTRIBUTION WIDTH 16.7 % (11.6-17.2); WHITE BLOOD COUNT 5.8 TH/MM3 (4.0-11.0)
--- NOTE | 2016-11-04 21:58 | RADRPT ---
EXAM DATE/TIME: 11/04/2016 21:41 [facility] COMPARISON: CHEST SINGLE AP, October 16, 2016, 3:52. INDICATIONS : Short of breath. MEDICAL HISTORY : Venous insufficiency. Chronic obstructive pulmonary disease. Hypercholesterolemia. SURGICAL HISTORY : None. ENCOUNTER: Initial ACUITY: 3 days PAIN SCORE: 0/10 LOCATION: Bilateral chest FINDINGS: A single view of the chest demonstrates bilateral small pleural effusions and basilar airspace diseas e. Cardiomegaly. Tortuous and atherosclerotic aorta. CONCLUSION: 1. Bilateral effusions and basilar airspace disease. Findings stable to slightly increased from October 16. Neo Jacome MD on November 04, 2016 at 21:55 Board Certified Radiologist. This report was verified electronically.
[2016-11-04 22:03] VITALS: O2SAT 97
[2016-11-04 22:04] LABS: APTT (PATIENT) 27.9 SEC (24.3-30.1); PROTHROMBIN TIME - PATIENT 10.7 SEC (9.8-11.6)
[2016-11-04 22:07] LABS: ALT (GPT) 30 U/L (10-53); ANION GAP 2 MEQ/L (5-15); AST (GOT) 23 U/L (15-37); BICARBONATE 43.7 MEQ/L (21.0-32.0); BLOOD UREA NITROGEN 20 MG/DL (7-18); CHLORIDE 91 MEQ/L (98-107); GLOMERULAR FILTRATION RATE 57 ML/MIN (>89); MAGNESIUM 2.8 MG/DL (1.5-2.5); POTASSIUM 5.2 MEQ/L (3.5-5.1); SODIUM (NA) 137 MEQ/L (136-145)
[2016-11-04 22:10] LABS: ALKALINE PHOSPHATASE 35 U/L (45-117); TOTAL BILIRUBIN ADULT 0.4 MG/DL (0.2-1.0)
[2016-11-05] MEDS ORDERED: MEDR4PAK PO (00:11)
[2016-11-05] MEDS ORDERED: RESP: ALBUTEROL 2.5 MG/IPRATROPIUM 0.5 MG NEB (SCH) NEB PRN (00:15)
[2016-11-05 01:19] VITALS: PULSE 64; RESP 16; O2SAT 93
[2016-11-05 01:49] VITALS: O2SAT 94
[2016-11-05 04:26] VITALS: PULSE 72; RESP 16; O2SAT 94
[2016-11-05 05:30] VITALS: RESP 18; O2SAT 92
--- NOTE | 2016-11-05 10:28 | EKG ---
Date Performed: 11/04/2016 Time Performed: 21:20:37 PTAGE: 76 years EKG: Sinus rhythm MARKED LEFT AXIS DEVIATION RIGHT BUNDLE BRANCH BLOCK ABNORMAL ECG PREVIOUS TRACING : 10/14/2016 11.23 DOCTOR: Av Argueta Interpretating Date/Time 11/05/2016 10:22:27
[2016-11-12] MEDS ORDERED: MILKSUS PO (22:37)
== END 2016-11-05 09:22 | disposition home or self-care (01) ==
LOC: NEPE 20:42
DX: J44.1 Chronic obstructive pulmonary disease with (acute) exacerbation (principal); Z99.81 Dependence on supplemental oxygen; K59.00 Constipation, unspecified; E78.00 Pure hypercholesterolemia, unspecified; Z86.718 Personal history of other venous thrombosis and embolism; I10 Essential (primary) hypertension; M79.7 Fibromyalgia; R94.31 Abnormal electrocardiogram [ECG] [EKG]
CPT/HCPCS: 71010; 80053; 83735; 83880; 85025; 85610; 85730; 93005; 94640; 94664

== ENCOUNTER 2016-11-12 18:25 | Inpatient (IN) | payer OTHER, MEDICARE ==
[~2016-11-12] VITALS: Ht 157.5 cm; Wt 62.0 kg
[~2016-11-12 18:25] MED LIST changes: +ALPR.25 PO; +LEVA3NEB12 NEB; +MEDR4PAK PO; +MIRA33504 PO; +SPIR25TA PO; +XARE10TA PO
[2016-11-12 18:35] VITALS: BP 169/82; PULSE 64; RESP 18; TEMP 97; O2SAT 87
[2016-11-12] MEDS ORDERED: SODIUM CHLORIDE 0.9% FLUSH 10 ML FLUSH IVF PRN (18:45)
[2016-11-12] MEDS ORDERED: RESP: BUDESONIDE 0.5 MG/2 ML NEB NEB ONE (18:45)
--- NOTE | 2016-11-12 19:09 | PD ---
Physical Exam Narrative I, Dr. Morales, have reviewed the advance practice practitioner's documentation and am in agreement, met with the patient face to face, made the diagnosis, and the medical decision making was done by me. *My assessment and Findings: Pneumonia vs. COPD exacerbation vs. ACS vs. PE 76yo F with COPD on home O2 4L, PE off xarelto presents to the ED with worsening sob today. States she also started having diffuse chest pain at 5: 30pm-6pm today. Pt is AAOx3 and saturating at 86% on 4L NC so placed on BIPAP at 40%. Pt feels better on BIPAP but was saturating in the mid 80s on 40% so increased to 60%. I reviewed pt's records and it seemed like she is chronically hypercapnic and hypoxic. Pt is currently drowsy but easily arousable and answering questions. Pt reevaluated at bedside after BIPAP placement and states she does feel better. CXR showed persistent basilar infiltrates and effusions. Lasix 20mg IV given. Will place montejo catheter to monitor ins and outs. Pt given budesonide neb, ipratropium and methylprednisolone 60mg IV. ABG showed compensated respiratory acidosis with pH of 7.40, PCO2 63.7, and HCO3 38.8 on BIPAP at 60% Fi O2. Labs reviewed, no leukocytosis. H/H at baseline. BNP 96. CO2 chronically elevated at 40.2. Discussed with Dr. Martínez who accepted the patient. Pt has been off xarelto for 5 days but unknown why. I do not really have an explanation for her hypoxemia. Will obtain CTA to r/o PE. CTA showed marked passive atelectasis both lung bases. No PE. Small bilateral pleural effusions. Data Data Last Documented VS Vital Signs Date Time Temp Pulse Resp B/P Pulse Ox O2 Delivery O2 Flow Rate FiO2 11/12/16 21:09 57 18 145/64 99 BiPAP 11/12/16 20:45 60 11/12/16 18:35 97.0 Orders Complete Blood Count With Diff (11/12/16 18:44) Comprehensive Metabolic Panel (11/12/16 18:44) B-Type Natriuretic Peptide (11/12/16 18:44) Act Partial Throm Time (Ptt) (11/12/16 18:44) Prothrombin Time / Inr (Pt) (11/12/16 18:44) Magnesium (Mg) (11/12/16 18:44) Ckmb (Isoenzyme) Profile (11/12/16 18:44) Troponin I (11/12/16 18:44) Iv Access Insert/Monitor (11/12/16 18:44) Electrocardiogram (11/12/16 18:44) Ecg Monitoring (11/12/16 18:44) Oximetry (11/12/16 18:44) Oxygen Administration (11/12/16 18:44) Chest, Single Ap (11/12/16 18:44) Sodium Chloride 0.9% Flush (Ns Flush) (11/12/16 18:45) Albuterol-Ipratropium Neb (Duoneb Neb) (11/12/16 18:45) Budesonide Neb (Pulmicort Respule Neb) (11/12/16 18:45) Arterial Blood Gas (Abg) (11/12/16 19:03) Resp Bipap / Cpap Non Invas Vt (11/12/16 19:03) Furosemide Inj (Lasix Inj) (11/12/16 19:45) Methylprednisolone So Succ Inj (Solumedr (11/12/16 20:00) Urinary Catheter Insert/Apply (11/12/16 19:50) Admit Order (Ed Use Only) (11/12/16 21:37) Labs Laboratory Tests Test 11/12/16 11/12/16 19:40 20:50 White Blood Count 7.8 TH/MM3 Red Blood Count 3.71 MIL/MM3 Hemoglobin 11.3 GM/DL Hematocrit 34.8 % Mean Corpuscular Volume 93.7 FL Mean Corpuscular Hemoglobin 30.5 PG Mean Corpuscular Hemoglobin 32.6 % Concent Red Cell Distribution Width 16.6 % Platelet Count 292 TH/MM3 Mean Platelet Volume 8.1 FL Neutrophils (%) (Auto) 68.4 % Lymphocytes (%) (Auto) 26.3 % Monocytes (%) (Auto) 4.6 % Eosinophils (%) (Auto) 0.0 % Basophils (%) (Auto) 0.7 % Neutrophils # (Auto) 5.3 TH/MM3 Lymphocytes # (Auto) 2.1 TH/MM3 Monocytes # (Auto) 0.4 TH/MM3 Eosinophils # (Auto) 0.0 TH/MM3 Basophils # (Auto) 0.1 TH/MM3 CBC Comment DIFF FINAL Differential Comment Prothrombin Time 9.9 SEC Prothromb Time International 0.9 RATIO Ratio Activated Partial 24.5 SEC Thromboplast Time Sodium Level 137 MEQ/L Potassium Level 4.7 MEQ/L Chloride Level 92 MEQ/L Carbon Dioxide Level 40.2 MEQ/L Anion Gap 5 MEQ/L Blood Urea Nitrogen 17 MG/DL Creatinine 0.93 MG/DL Estimat Glomerular Filtration 58 ML/MIN Rate Random Glucose 102 MG/DL Calcium Level 9.5 MG/DL Magnesium Level 2.4 MG/DL Total Bilirubin 0.4 MG/DL Aspartate Amino Transf 17 U/L (AST/SGOT) Alanine Aminotransferase 25 U/L (ALT/SGPT) Alkaline Phosphatase 34 U/L Total Creatine Kinase 38 U/L Troponin I 0.02 NG/ML B-Type Natriuretic Peptide 96 PG/ML Total Protein 6.2 GM/DL Albumin 2.9 GM/DL Blood Gas Puncture Site LT RADIAL Blood Gas Patient Temperature 98.6 Blood Gas HCO3 39 mmol/L Blood Gas Base Excess 13.4 mmol/L Blood Gas Oxygen Saturation 94 % Arterial Blood pH 7.40 Arterial Blood Partial 64 mmHg Pressure CO2 Arterial Blood Partial 73 mmHG Pressure O2 Arterial Blood Oxygen Content 14.5 Vol % Arterial Blood 1.7 % Carboxyhemoglobin Arterial Blood Methemoglobin 0.7 % Blood Gas Hemoglobin 11.0 G/DL Oxygen Delivery Device BiPAP Blood Gas Ventilator Setting 16/6 Blood Gas Inspired Oxygen 60 % [facility] Supervised Visit with FITO: Yes Interpretation(s) EKG: NSR 62bpm. RBBB. PVC. Critical Care Narrative Aggregate critical care time was 60 minutes. Time to perform other separately billable procedures was not included in the critical care time. My time did not include minutes spent treating any other patients simultaneously or on activities that did not directly contribute to the patient's treatment. The services I provided to this patient were to treat and/or prevent clinically significant deterioration that could result in: cardiovascular collapse or . I provided critical care services requiring my management, as noted below: Chart data review, documentation time, medication orders and management, vital sign assessments/reviewing monitor data, ordering and reviewing lab tests, ordering and interpreting/reviewing x-rays and diagnostic studies, care of the patient and discussion of the patient with the admitting physicians. Diagnosis Primary Impression: Acute respiratory failure with hypoxia Admitting Information Admitting Physician Requests: Admit Nancy Morales DO November 12, 2016 19:09
--- NOTE | 2016-11-12 19:14 | RADRPT ---
EXAM DATE/TIME: 11/12/2016 19:03 [facility] COMPARISON: CHEST SINGLE AP, November 04, 2016, 21:41. INDICATIONS : Shortness of breath. MEDICAL HISTORY : Chronic obstructive pulmonary disease. Hypercholesterolemia. SURGICAL HISTORY : None. ENCOUNTER: Initial ACUITY: 1 day PAIN SCORE: 0/10 LOCATION: Bilateral chest FINDINGS: Mild basilar infiltrates and effusions similar to prior. Accounting for differences in projection, ca rdiac contours are grossly stable. CONCLUSION: Persistent basilar infiltrates and effusions. Jasper Bautista MD on November 12, 2016 at 19:12 Board Certified Radiologist. This report was verified electronically.
[2016-11-12] MEDS: RESP: ALBUTEROL 2.5 MG/IPRATROPIUM 0.5 MG NEB (SCH) INH ×4 (19:15→19:52)
--- NOTE | 2016-11-12 19:22 | PD ---
HPI Chief Complaint: Respiratory Symptoms Time Seen by Provider: 18:45 Travel History International Travel<30 days: No Contact w/Intl Traveler<30days: No Traveled to known affect area: No History of Present Illness HPI Patient is a 76-year-old female presenting to the emergency department via [facility] from her long term facility due to shortness of breath. Patient states she started feeling short of breath last night, she is normally O2 dependent reporting that she is on 2 L continuously. She states that the snf staff put her up to 4 L but she continued to feel short of breath. She reports a productive cough and states that she was recently treated for pneumonia and influenza. She denied any other complaints at this time. Patient 's medical history is significant for hypertension, COPD, CHF, DVT. Patient reports being given a nebulizer treatment prior to transfer to the hospital. PFSH Past Medical History Hx Anticoagulant Therapy: Yes (xarelto completed on the November 07) Arthritis: Yes Anxiety: No Depression: No Heart Rhythm Problems: No Cancer: Yes High Cholesterol: Yes Chemotherapy: No Congestive Heart Failure: Yes COPD: Yes (O2 dep) Coronary Artery Disease: No Diabetes: No Diminished Hearing: Yes Deep Vein Thrombosis: Yes (x2 ) Fibromyalgia: Yes Gastrointestinal Disorders: No Genitourinary: Yes Headaches: Yes Hypertension: Yes Immune Disorder: No Implanted Vascular Access Dvce: No Neurologic: Yes Psychiatric: No Reproductive: No Radiation Therapy: Yes (thyroid) Thyroid Disease: Yes Menopausal: Yes Tubal Ligation: Yes Past Surgical History Ear Surgery: Yes (INPLANT RT/ CATARACT) Eye Surgery: Yes (CATARACT) Gynecologic Surgery: Yes (TUBAL LIGATION) Tonsillectomy: Yes Other Surgery: Yes Social History Alcohol Use: No Tobacco Use: No (quit 2013 smoked 1 ppd cigs for 57 yrs) Substance Use: No Allergies-Medications (Allergen,Severity, Reaction): Coded Allergies: Azithromycin (Verified Allergy, Severe, STOMACH CRAMPS, 10/10/16) Penicillin (Verified Allergy, Severe, 10/10/16) Reported Meds & Prescriptions Reported Meds & Active Scripts Active Medrol Dosepak (Methylprednisolone) 4 Mg Dspk 4 Mg PO DIRECTED Per Pharmacist direction Levaquin (Levofloxacin) 500 Mg Tab 500 Mg PO DAILY Prednisone 10 Mg Tab 10 Mg PO DAILY TAKE FOUR TABLETS BY MOUTH DAILY FOR THREE DAYS THEN TAKE THREE TABLETS BY MOUTH DAILY FOR THREE DAYS THEN TAKE TWO TABLETS BY MOUTH DAILY FOR TWO DAYS THEN TAKE ONE TABLET DAILY. Metoprolol Tartrate 25 Mg Tab 12.5 Mg PO Q12HR HOLD FOR SYSTOLIC BLOOD PRESSURE IN 110 MM HG OR BELOW OR HEART RATE IN 60 OR BELOW. Mucinex ER 12 HR (Guaifenesin) 600 Mg Dennis 600 Mg PO BID Norvasc (Amlodipine Besylate) 5 Mg Tab 5 Mg PO DAILY Oxycodone-Acetaminophen 10-325 mg Tab 1 Tab PO Q6H PRN DO NOT USE THIS MEDICINE IF YOU WILL DRIVE A CAR OR USE A MACHINE, ONLY USE IT WHEN RESTING AT HOME. Duoneb (Ipratropium-Albuterol Neb) 0.5-2.5 Mg/3 Ml Neb 1 Ampule NEB Q4HR NEB 30 Days Symbicort Inh (Budesonide/Formoterol Fumarate) 160-4.5 Mcg/Act Aero 2 Puff INH Q12HR 30 Days Albuterol Neb (Albuterol Sulfate) 1.25 Mg/3 Ml Neb 1.25 Mg NEB Q2HR NEB PRN 30 Days Reported Xopenex Neb (Levalbuterol HCl) 1.25 Mg/3 Ml Neb 1.25 Mg NEB ONCE PRN Xanax (Alprazolam) 0.25 Mg Tab 0.25 Mg PO Q8H PRN Xarelto (Rivaroxaban) 10 Mg Tab 10 Mg PO DAILY Spironolactone 25 Mg Tab 12.5 Mg PO DAILY Miralax Powder (Polyethylene Glycol 3350 Powder) 17 Gm Powd 17 Gm PO DAILY Mix and dissolve one measuring cap-ful (17 grams) in water or juice. Flexeril (Cyclobenzaprine HCl) 5 Mg Tab 5 Mg PO TID Gabapentin 600 Mg Tab 600 Mg PO TID Ferrous Sulfate 325 Mg Tab 325 Mg PO DAILY Review of Systems Except as stated in HPI: all other systems reviewed are Neg HENT: No: Headaches Cardiovascular: No: Chest Pain or Discomfort Respiratory: Positive: Cough, Shortness of Breath, Orthopnea Gastrointestinal: No: Nausea, Vomiting, Diarrhea, Abdominal Pain Genitourinary: No: Dysuria Musculoskeletal: No: Myalgias Neurologic: No: Weakness, Dizziness, Syncope, Focal Abnormalities Physical Exam Narrative GENERAL: Well-developed, well-nourished, alert elderly female. SKIN: Focused skin assessment warm/dry. HEAD: Atraumatic. Normocephalic. EYES: Pupils equal and round. No scleral icterus. No injection or drainage. ENT: No nasal bleeding or discharge. Mucous membranes pink and moist. NECK: Trachea midline. No JVD. CARDIOVASCULAR: Regular rate and rhythm. No murmur appreciated. RESPIRATORY: No accessory muscle use. Significantly diminished in bases, no wheezing, rhonchi, rales noted. GASTROINTESTINAL: Abdomen soft, non-tender, nondistended. Hepatic and splenic margins not palpable. MUSCULOSKELETAL: No obvious deformities. No clubbing. No cyanosis. Trace peripheral edema. NEUROLOGICAL: Awake and alert. No obvious cranial nerve deficits. Motor grossly within normal limits. Normal speech. PSYCHIATRIC: Appropriate mood and affect; insight and judgment normal. Data Data Last Documented VS Vital Signs Date Time Temp Pulse Resp B/P Pulse Ox O2 Delivery O2 Flow Rate FiO2 11/12/16 21:09 57 18 145/64 99 BiPAP 11/12/16 20:45 60 11/12/16 18:35 97.0 Orders Complete Blood Count With Diff (11/12/16 18:44) Comprehensive Metabolic Panel (11/12/16 18:44) B-Type Natriuretic Peptide (11/12/16 18:44) Act Partial Throm Time (Ptt) (11/12/16 18:44) Prothrombin Time / Inr (Pt) (11/12/16 18:44) Magnesium (Mg) (11/12/16 18:44) Ckmb (Isoenzyme) Profile (11/12/16 18:44) Troponin I (11/12/16 18:44) Iv Access Insert/Monitor (11/12/16 18:44) Electrocardiogram (11/12/16 18:44) Ecg Monitoring (11/12/16 18:44) Oximetry (11/12/16 18:44) Oxygen Administration (11/12/16 18:44) Chest, Single Ap (11/12/16 18:44) Sodium Chloride 0.9% Flush (Ns Flush) (11/12/16 18:45) Albuterol-Ipratropium Neb (Duoneb Neb) (11/12/16 18:45) Budesonide Neb (Pulmicort Respule Neb) (11/12/16 18:45) Arterial Blood Gas (Abg) (11/12/16 19:03) Resp Bipap / Cpap Non Invas Vt (11/12/16 19:03) Furosemide Inj (Lasix Inj) (11/12/16 19:45) Methylprednisolone So Succ Inj (Solumedr (11/12/16 20:00) Urinary Catheter Insert/Apply (11/12/16 19:50) Labs Laboratory Tests Test 11/12/16 11/12/16 19:40 20:50 White Blood Count 7.8 TH/MM3 Red Blood Count 3.71 MIL/MM3 Hemoglobin 11.3 GM/DL Hematocrit 34.8 % Mean Corpuscular Volume 93.7 FL Mean Corpuscular Hemoglobin 30.5 PG Mean Corpuscular Hemoglobin 32.6 % Concent Red Cell Distribution Width 16.6 % Platelet Count 292 TH/MM3 Mean Platelet Volume 8.1 FL Neutrophils (%) (Auto) 68.4 % Lymphocytes (%) (Auto) 26.3 % Monocytes (%) (Auto) 4.6 % Eosinophils (%) (Auto) 0.0 % Basophils (%) (Auto) 0.7 % Neutrophils # (Auto) 5.3 TH/MM3 Lymphocytes # (Auto) 2.1 TH/MM3 Monocytes # (Auto) 0.4 TH/MM3 Eosinophils # (Auto) 0.0 TH/MM3 Basophils # (Auto) 0.1 TH/MM3 CBC Comment DIFF FINAL Differential Comment Prothrombin Time 9.9 SEC Prothromb Time International 0.9 RATIO Ratio Activated Partial 24.5 SEC Thromboplast Time Sodium Level 137 MEQ/L Potassium Level 4.7 MEQ/L Chloride Level 92 MEQ/L Carbon Dioxide Level 40.2 MEQ/L Anion Gap 5 MEQ/L Blood Urea Nitrogen 17 MG/DL Creatinine 0.93 MG/DL Estimat Glomerular Filtration 58 ML/MIN Rate Random Glucose 102 MG/DL Calcium Level 9.5 MG/DL Magnesium Level 2.4 MG/DL Total Bilirubin 0.4 MG/DL Aspartate Amino Transf 17 U/L (AST/SGOT) Alanine Aminotransferase 25 U/L (ALT/SGPT) Alkaline Phosphatase 34 U/L Total Creatine Kinase 38 U/L Troponin I 0.02 NG/ML B-Type Natriuretic Peptide 96 PG/ML Total Protein 6.2 GM/DL Albumin 2.9 GM/DL Blood Gas Puncture Site LT RADIAL Blood Gas Patient Temperature 98.6 Blood Gas HCO3 39 mmol/L Blood Gas Base Excess 13.4 mmol/L Blood Gas Oxygen Saturation 94 % Arterial Blood pH 7.40 Arterial Blood Partial 64 mmHg Pressure CO2 Arterial Blood Partial 73 mmHG Pressure O2 Arterial Blood Oxygen Content 14.5 Vol % Arterial Blood 1.7 % Carboxyhemoglobin Arterial Blood Methemoglobin 0.7 % Blood Gas Hemoglobin 11.0 G/DL Oxygen Delivery Device BiPAP Blood Gas Ventilator Setting 16/ Blood Gas Inspired Oxygen 60 % MDM Medical Decision Making Medical Screen Exam Complete: Yes Emergency Medical Condition: Yes Medical Record Reviewed: Yes Interpretation(s) Vital Signs Date Time Temp Pulse Resp B/P Pulse Ox O2 Delivery O2 Flow Rate FiO2 11/12/16 18:35 97.0 64 18 169/82 87 Differential Diagnosis COPD exacerbation versus pneumonia versus congestive heart failure versus other Narrative Course Patient is a 76-year-old female presenting to the emergency department for evaluation of shortness of breath. IV access established, patient placed on telemetry monitoring and continuous pulse oximetry. Patient continued to have oxygen saturations in the low to mid 80s on 4 L, patient placed on BiPAP. Labs and imaging ordered and pending. Patient is resting comfortably in no acute distress. Care patient assumed by my attending physician. Please see her documentation. Marcia Lawrence November 12, 2016 19:21
[2016-11-12 19:45] VITALS: PULSE 57; RESP 22; O2SAT 96
[2016-11-12] MEDS ORDERED: FUROSEMIDE 20 MG/2 ML VIAL IV PUSH ONE (19:45)
[2016-11-12 20:00] LABS: AUTOMATED NEUTROPHIL # 5.3 TH/MM3 (1.8-7.7); BASOPHIL # 0.1 TH/MM3 (0-0.2); BASOPHIL % 0.7 % (0.0-2.0); HEMATOCRIT 34.8 % (35.0-46.0); HEMO FLAGS DIFF FINAL; LYMPH % 26.3 % (9.0-44.0); LYMPHOCYTE # 2.1 TH/MM3 (1.0-4.8); MEAN CELL VOLUME 93.7 FL (80.0-100.0); MEAN CORPUSCULAR HEMOGLOBIN 30.5 PG (27.0-34.0); MEAN CORPUSCULAR HGB CONC 32.6 % (32.0-36.0); MONO % 4.6 % (0.0-8.0); NEUT % 68.4 % (16.0-70.0); PLATELET COUNT 292 TH/MM3 (150-450); RED BLOOD COUNT 3.71 MIL/MM3 (4.00-5.30); RED CELL DISTRIBUTION WIDTH 16.6 % (11.6-17.2); WHITE BLOOD COUNT 7.8 TH/MM3 (4.0-11.0)
[2016-11-12] MEDS ORDERED: methylPREDNISolone SOD SUCC 125 MG/2 ML VIAL IVP ONE (20:00)
[2016-11-12 20:09] LABS: APTT (PATIENT) 24.5 SEC (24.3-30.1); INTERNATIONAL NORMALIZED RATIO 0.9 RATIO; PROTHROMBIN TIME - PATIENT 9.9 SEC (9.8-11.6)
[2016-11-12 20:15] VITALS: O2SAT 90
[2016-11-12 20:23] LABS: ANION GAP 5 MEQ/L (5-15); AST (GOT) 17 U/L (15-37); BICARBONATE 40.2 MEQ/L (21.0-32.0); BLOOD UREA NITROGEN 17 MG/DL (7-18); CHLORIDE 92 MEQ/L (98-107); GLOMERULAR FILTRATION RATE 58 ML/MIN (>89); MAGNESIUM 2.4 MG/DL (1.5-2.5); POTASSIUM 4.7 MEQ/L (3.5-5.1); SODIUM (NA) 137 MEQ/L (136-145)
[2016-11-12 20:28] LABS: ALKALINE PHOSPHATASE 34 U/L (45-117); ALT (GPT) 25 U/L (10-53); TOTAL BILIRUBIN ADULT 0.4 MG/DL (0.2-1.0)
[2016-11-12 20:32] LABS: CREATINE KINASE 38 U/L (26-192)
[2016-11-12 20:45] VITALS: O2SAT 97
[2016-11-12 21:05] LABS: BLOOD GAS BASE EXCESS 13.4 mmol/L (-2-2); BLOOD GAS CARBOXYHEMOGLOBIN 1.7 % (0-4); BLOOD GAS HCO3 39 mmol/L (22-26); BLOOD GAS METHEMOGLOBIN 0.7 % (0-2); BLOOD GAS O2 HGB SATURATION 94 % (90-100); BLOOD GAS OXYGEN CONTENT 14.5 Vol % (12.0-20.0); BLOOD GAS PCO2 64 mmHg (38-42); BLOOD GAS PO2 73 mmHG (61-120); TEMP CORR TO 98.6
[2016-11-12 21:09] VITALS: BP 145/64; PULSE 57; RESP 18; O2SAT 99
[2016-11-12 21:12] LABS: CRITICAL VALUE YES; DRAW SITE LT RADIAL; FIO2 60 %; NUMBER OF ARTERIAL PUNCTURES 1; OXYGEN DEVICE BiPAP; VENT SETTINGS 16/6
[2016-11-12 21:13] LABS: STAT YES; ULNAR PULSE PRESENT
[2016-11-12] MEDS ORDERED: FLUT1INH INH (21:51)
[2016-11-12] MEDS ORDERED: MIRA3350 PO (22:29)
[2016-11-12] MEDS ORDERED: DIFFCHW PO (22:29)
[2016-11-12] MEDS ORDERED: GUAI1TAB15 PO (22:29)
[2016-11-12] MEDS ORDERED: FERR325T2 PO (22:32)
[2016-11-12] MEDS ORDERED: MILKSUS PO ×2 (22:37)
[2016-11-12] MEDS ORDERED: ALBU0.08 NEB (22:37)
[2016-11-12 22:44] VITALS: BP 166/78; PULSE 56; RESP 17; O2SAT 100
[2016-11-13] VITALS (15 sets, daily range): BP systolic 130–169; BP diastolic 67–84; PULSE 58–82; RESP 16–30; TEMP 97.4–98.6; O2SAT 91–97
--- NOTE | 2016-11-13 01:08 | HHI.HP ---
[facility] Service Critical Care Medicine Primary Care Physician Fernanda Fox MD Admission Diagnosis Hypoxic respiratory failure Diagnosis: Travel History International Travel<30 Days: No Contact w/Intl Traveler <30 Da: No Traveled to Known Affected Are: No History of Present Illness 76-year-old female with past medical history of diastolic heart failure, COPD with 4 L oxygen requirement and chronic CO2 retention, hypertension, hypothyroidism, hyperlipidemia, prior history of DVT and pulmonary embolism previously on Xarelto. She was recently admitted to [facility] 10/10/16 through 10/24/16 due to acute hypoxemic and hypercapnic respiratory failure requiring BiPAP and high flow nasal cannula. She was treated with a combination of steroids, abx, diuretics, had negative VQ scan and eventually was discharge to [facility] and rehabilitation. She states that since discharge to rehabilitation that she feels that she has been gaining weight. She states that her daily weights have been increasing by nearly a pounds daily for the last 4-5 days. Is also noted significant swelling of her bilateral lower extremities. She has a cough which is productive of thick yellow sputum and she states that this is worse than her baseline. She denies chest pain, hemoptysis, fevers, chills, nausea, vomiting. She hasn't states that she has been intermittently having episodes of abrupt onset of shortness of breath and anxiety which she describes as "panic attacks" but the they are accompanied by hypoxemia. She had an episodes like this this evening and sats were in the 80s on 4 L nasal cannula so she requested evaluation in the hospital. Upon arrival to the ER her sats remained in the 80s and she was placed on BiPAP 12/6 with FiO2 to 60% to maintain sat at 90%. ABG demonstrated chronic hypercapneic respiraory failure with hypoxemia (pH 7.4/ PaCO2 64/PA O2 of 73/bicarbonate 39). She was given budesonide, albuterol x4, Lasix 20 mg IV, Solu-Medrol 60 mg IV and states she is feels much better than when she arrived. Her white count is normal. Chest x-ray demonstrates left lower lobe opacity (she also has h/o opacity and bronchiectasis in that location ). She states she feels significantly improved after these measures and desires to do a trial off of BiPAP. Sats are 90% on 6 L nasal cannula. Past Family Social History Allergies: Coded Allergies: Azithromycin (Verified Allergy, Severe, STOMACH CRAMPS, 10/10/16) Penicillin (Verified Allergy, Severe, 10/10/16) Past Medical History COPD on 4 L home O2 Former history of tobacco abuse Chronic diastolic heart failure PE DVT reportedly a DVT in 2012 per prior records (H and P Dr. Hodges). She states was unprovoked. She states that she had a PE and DVT about a year and a half ago. She does not recall DVT in 2013. Polycystic kidney disease iron deficiency anemia Hypothyroidism Hypertension Angina Hyperlipidemia Hx of Goiter s/p radiation therapy with subsequent hypothyroidism Fibromyalgia Sciatica Cholelithiasis SAPP Diverticulosis line Past Surgical History Tonsillectomy Cataract surgery Tubal ligation Reported Medications Prednisone 10 mg by mouth daily Gabapentin 600 mg by mouth 3 times a day DuoNeb every 4 hours when necessary Xanax or 0.5 mg by mouth every 8 hours when necessary anxiety Albuterol 2.5 mg every 2 hours when necessary Metoprolol 12.5 by mouth every 12 hours MiraLAX 17 g by mouth daily at bedtime Milk of magnesia 30 ML by mouth daily Flexeril 5 mg by mouth 3 times a day Breo 1 puff inhaled daily at bedtime Norvasc 5 mg by mouth daily Guaifenesin 600 mg by mouth Probiotic 1 By mouth twice a day Ferrous sulfate 325 mg by mouth 3 times a day lines prophylactically until 0.5 mg by mouth daily Oxycodone 10/325 one by mouth every 6 hours when necessary Family History Patient denies any family cardiac history. Social History Spelled pack of cigarettes per day for 61 years. Quit 3 years ago. Denies use of alcohol or illicit drugs She is currently a [place] [facility] but states that she lives with her son in and hopes to return to her son's home soon. She states she has not really been ambulating at the snf. Physical Exam Vital Signs Vital Signs Date Time Temp Pulse Resp B/P Pulse Ox O2 Delivery O2 Flow Rate FiO2 11/12/16 22:44 56 17 166/78 100 BiPAP 11/12/16 21:09 57 18 145/64 99 BiPAP 11/12/16 20:45 97 60 11/12/16 20:23 90 BiPAP 40 11/12/16 20:15 90 40 11/12/16 19:45 57 22 96 BiPAP 11/12/16 19:45 57 BiPAP 11/12/16 19:23 90 CPAP 40 11/12/16 18:35 97.0 64 18 169/82 87 Physical Exam GENERAL: Well-nourished, well-developed who is chronically ill, overweight, debilitated, laying in the ED stretcher. SKIN: Warm and dry. HEAD: Atraumatic. Normocephalic. EYES: Pupils equal and round. No scleral icterus. No injection or drainage. ENT: No nasal bleeding or discharge. Mucous membranes pink, slightly dry. NECK: Trachea midline. No JVD. CARDIOVASCULAR: Regular rate and rhythm, sinus rhythm on the monitor with rate in the 60s. No murmurs rubs or gallops appreciated. RESPIRATORY: Clear to auscultation bilaterally without wheezes or rales. She has occasional rhonchi that clear with cough. She is diminished bibasilar. GASTROINTESTINAL: Abdomen soft, non-tender, nondistended. Bowel sounds present. Hepatic and splenic margins not palpable. MUSCULOSKELETAL: Extremities without clubbing, cyanosis. There is 2+ pitting edema bilaterally. NEUROLOGICAL: Awake and alert. No obvious cranial nerve deficits. Motor grossly within normal limits. Normal speech. She is oriented to [facility]. She does have difficulty recalling her medical history. Laboratory Laboratory Tests Test 11/12/16 11/12/16 19:40 20:50 White Blood Count 7.8 Red Blood Count 3.71 Hemoglobin 11.3 Hematocrit 34.8 Mean Corpuscular Volume 93.7 Mean Corpuscular Hemoglobin 30.5 Mean Corpuscular Hemoglobin 32.6 Concent Red Cell Distribution Width 16.6 Platelet Count 292 Mean Platelet Volume 8.1 Neutrophils (%) (Auto) 68.4 Lymphocytes (%) (Auto) 26.3 Monocytes (%) (Auto) 4.6 Eosinophils (%) (Auto) 0.0 Basophils (%) (Auto) 0.7 Neutrophils # (Auto) 5.3 Lymphocytes # (Auto) 2.1 Monocytes # (Auto) 0.4 Eosinophils # (Auto) 0.0 Basophils # (Auto) 0.1 CBC Comment DIFF FINAL Differential Comment Prothrombin Time 9.9 Prothromb Time International 0.9 Ratio Activated Partial 24.5 Thromboplast Time Sodium Level 137 Potassium Level 4.7 Chloride Level 92 Carbon Dioxide Level 40.2 Anion Gap 5 Blood Urea Nitrogen 17 Creatinine 0.93 Estimat Glomerular Filtration 58 Rate Random Glucose 102 Calcium Level 9.5 Magnesium Level 2.4 Total Bilirubin 0.4 Aspartate Amino Transf 17 (AST/SGOT) Alanine Aminotransferase 25 (ALT/SGPT) Alkaline Phosphatase 34 Total Creatine Kinase 38 Troponin I 0.02 B-Type Natriuretic Peptide 96 Total Protein 6.2 Albumin 2.9 Blood Gas Puncture Site LT RADIAL Blood Gas Patient Temperature 98.6 Blood Gas HCO3 39 Blood Gas Base Excess 13.4 Blood Gas Oxygen Saturation 94 Arterial Blood pH 7.40 Arterial Blood Partial 64 Pressure CO2 Arterial Blood Partial 73 Pressure O2 Arterial Blood Oxygen Content 14.5 Arterial Blood 1.7 Carboxyhemoglobin Arterial Blood Methemoglobin 0.7 Blood Gas Hemoglobin 11.0 Oxygen Delivery Device BiPAP Blood Gas Ventilator Setting 16/6 Blood Gas Inspired Oxygen 60 Result Diagram: 11/12/16193911/12/161939 Assessment and Plan Assessment and Plan NEURO: Sciatica Fibromyalgia Chronic pain Anxiety Continue gabapentin 600 mg by mouth 3 times a day Xanax 0.25 by mouth every 6 hours when necessary anxiety Oxycodone 10/325 one by mouth every 6 hours when necessary pain RESP: Acute hypoxemic respiratory failure overlying chronic hypoxemia and hypercapnia. Bronchiectasis Her primary respiratory issue at this point appears to be advanced COPD. I believe fluid retention is largely related to chronic hypercapnia. CT pulmonary artery negative for PE. Small bilateral pleural effusions with compressive atelectasis. Breo 1 puff qhs Mucinex 600 mg by mouth every 12 hours DuoNeb every 4 hours. Albuterol every 2 hours when necessary Increase prednisone 40 mEq by mouth daily CV: Hypertension Hyperlipidemia Chronic diastolic heart failure Recent echo 10/14/16EF 60-65%. No regional wall motion abnormalities. Moderate LVH. Continue Norvasc 5 mill grams by mouth daily. Continue metoprolol 12.5 mg by mouth every 12 hours. Continues spironolactone 12.5 mill grams by mouth daily Diamox 500 mg IV every 12 hours 2 doses. Hold off on lasix because further worsening of metabolic alkalosis made decreased respiratory drive GI: Heart healthy diet. FEN/RENAL: Polycystic kidney disease Fuentes in place. Monitor intake and output. Monitor electrolytes. Replace electrolytes as indicated per ICU electrolyte replacement protocol. ID: Patient has been on Levaquin since 11/05-11/11. Patient has also had course of levaquin 10/11-10/23. Gave dose on admission but at this point with no fever, no leukocytosis, and CT scan showing chronic findings, will stop antibiotics due to concern for risk of C diff or other complication of antibiotic therapy out weighing benefit. Continue Lactinex 3 times a day HEME: H/o DVT, PE Iron deficiency anemia Patient was previously on Xarelto therapeutic dose due to history of DVT and pulmonary embolism. With review of her prior admissions it appears she was on Xarelto for many years after DVT was diagnosed in 2012. She states she had a subsequent outpatient CT scan about a year and a half ago that showed multiple PEs and a DVT. She states to her knowledge these were unprovoked by surgery or trauma. She states she is uncertain but that it seems like xarelto was discontinued during a hospital admission. She was discharged on it 09/29/16 and then reported she had been taken off of it when readmitted 10/10 (though she was also hypercapneic at that time and may not have provided accurate history) She was started on full dose anticoagulation with lovenox x3 days but then not transitioned to xarelto. If history is true that she had multiple unprovoked VTE , would likely need ongoing anticoagulation but may want to confirm this history with PMD. She is certainly at risk for VTE because it appears she is quite sedentary. At the snf, It appears she was transitioned to rivaroxaban 10 mg daily for DVT prophylaxis but that this was discontinued on . At this point, will place on xarelto at therapeutic dose of 20 mg daily. She denies history of bleeding complication. ENDO: Euglycemic. Low-dose insulin sliding scale with bedside glucose/at bedtime while on increased steroids. PROPH: Xarelto will provide DVT prophylaxis as per above. Protonix 40 mg IV daily for stress ulcer prophylaxis. ACCESS: Peripheral IV providing adequate access at this time. CCT 60 minutes exclusive separately billable procedures. Giovanna Martínez MD November 13, 2016 01:08
[2016-11-13] MEDS ORDERED: SODIUM CHLORIDE 0.9% FLUSH 10 ML FLUSH PRN (01:15)
[2016-11-13] MEDS ORDERED: BISACODYL 10 MG SUPP RECTAL PRN (01:15)
[2016-11-13] MEDS ORDERED: ONDANSETRON HCL 4 MG/2 ML VIAL IV PRN (01:15)
[2016-11-13] MEDS ORDERED: LACTULOSE SYRUP 20 GM/30 ML CUP PO PRN (01:15)
[2016-11-13] MEDS ORDERED: MAGNESIUM HYDROXIDE SUSP 30 ML CUP PO PRN (01:15)
[2016-11-13] MEDS ORDERED: MISCELLANEOUS NURSING INFORMATION XX SCH (01:15)
[2016-11-13] MEDS ORDERED: CHLORHEXIDINE GLUCONATE 2 % 1 PACK (2 CLOTHS) TOP PRN (01:15)
[2016-11-13] MEDS ORDERED: SENNOSIDES 8.6 MG TAB PO PRN (01:15)
[2016-11-13] MEDS ORDERED: ACETAMINOPHEN 325 MG TAB PO PRN (01:15)
[2016-11-13] MEDS ORDERED: PILL SPLITTER OTHER PRN (01:30)
[2016-11-13] MEDS ORDERED: DEXTROSE 50% IN WATER 50 ML VIAL(D50) IV PRN (02:15)
[2016-11-13] MEDS ORDERED: GLUCAGON 1 MG/ML VIAL OTHER PRN (02:15)
[2016-11-13] MEDS ORDERED: IOHEXOL 350 MG/ML 10 ML VIAL (for RAD DIAG) IV ONE (02:46)
--- NOTE | 2016-11-13 03:01 | RADRPT ---
EXAM DATE/TIME: 11/13/2016 02:43 [facility] COMPARISON: No previous studies available for comparison. INDICATIONS : Shortness of breath. IV CONTRAST: 75 cc Omnipaque 350 (iohexol) IV RADIATION DOSE: CTDIvol (mGy) MEDICAL HISTORY : Cardiovascular disease. Hypertension. Deep venous thrombosis.COPD SURGICAL HISTORY : None. ENCOUNTER: Initial ACUITY: 1 day PAIN SCALE: 2/10 LOCATION: Bilateral chest TECHNIQUE: Volumetric scanning of the chest was performed using a pulmonary embolism protocol MIP images were re constructed. Using automated exposure control and adjustment of the mA and/or kV according to patien t size, radiation dose was kept as low as reasonably achievable to obtain optimal diagnostic quality images. FINDINGS: PULMONARY ARTERIES: No filling defects are seen in the pulmonary arteries through the segmental level. The pulmonary geri brent are enlarged as is the thoracic aorta LUNGS: There is some marked passive atelectasis in both lung bases. No concerning pulmonary nodule is visua lized. PLEURAE: There is no pleural thickening with small bilateral pleural effusions. MEDIASTINUM: There is good visualization of the great vessels of the middle mediastinum. No evidence of mediastin al or hilar adenopathy/mass. MUSCULOSKELETAL: Within normal limits for patient age. MISCELLANEOUS: The visualized upper abdominal organs demonstrate no acute abnormality. CONCLUSION: Marked passive atelectasis both lung bases. Excellent opacification of pulmonary arteries without jane dence of pulmonary embolism. Small bilateral pleural effusions. Distended esophagus. Av Ramirez MD on November 13, 2016 at 2:58 Board Certified Radiologist. This report was verified electronically.
[2016-11-13] MEDS: PANTOPRAZOLE SODIUM 40 MG VIAL IV PUSH SCH (03:50)
[2016-11-13] MEDS: RESP: ALBUTEROL 2.5 MG/IPRATROPIUM 0.5 MG NEB (SCH) INH ×4 (04:00→21:14)
[2016-11-13] MEDS: CHLORHEXIDINE GLUCONATE 2 % 1 PACK (2 CLOTHS) TOP SCH (04:00)
[2016-11-13] MEDS: ALPRAZolam 0.25 MG TAB PO PRN (06:17)
[2016-11-13] MEDS: predniSONE 20 MG TAB PO SCH (08:36)
[2016-11-13] MEDS: guaiFENesin E.R. 600 MG TAB PO SCH ×2 (08:36→21:58)
[2016-11-13] MEDS: DOCUSATE SODIUM 50 MG/SENNA 8.6 MG TAB PO SCH ×2 (08:36→21:57)
[2016-11-13] MEDS: METOPROLOL TARTRATE 25 MG TAB PO SCH ×2 (08:36→21:57)
[2016-11-13] MEDS: oxyCODONE/ACETAMINOPHEN 10 MG/325 MG TAB PO PRN ×2 (08:37→22:02)
[2016-11-13] MEDS: amLODIPine BESYLATE 5 MG TAB PO SCH (08:37)
[2016-11-13] MEDS: SPIRONOLACTONE 25 MG TAB PO SCH (08:37)
[2016-11-13] MEDS: RIVAROXABAN 20 MG TAB PO SCH (08:37)
[2016-11-13] MEDS: LACTOBACILLUS ACIDOPHILUS 1 GM PACKET PO SCH ×3 (08:37→17:01)
[2016-11-13] MEDS: SODIUM CHLORIDE 0.9% FLUSH 10 ML FLUSH SCH ×2 (08:38→22:03)
[2016-11-13] MEDS: FERROUS SULFATE 325 MG (65 MG ELEMENTAL IRON) TAB PO SCH ×3 (08:40→17:01)
[2016-11-13] MEDS: POLYETHYLENE GLYCOL 17 GM PKG PO SCH ×2 (08:40→22:00)
[2016-11-13] MEDS ORDERED: GABAPENTIN 300 MG CAP PO SCH (09:00)
[2016-11-13] MEDS ORDERED: LEVOFLOXACIN 750 MG TAB PO SCH (09:00)
[2016-11-13] MEDS ORDERED: predniSONE 10 MG TAB PO SCH (09:00)
[2016-11-13] MEDS ORDERED: PANTOPRAZOLE SODIUM 40 MG VIAL IV SCH (09:00)
--- NOTE | 2016-11-13 16:47 | EKG ---
Date Performed: 11/13/2016 Time Performed: 07:35:40 PTAGE: 76 years EKG: Sinus rhythm WITH OCCASIONAL SUPRAVENTRICULAR PREMATURE COMPLEXES RIGHT BUNDLE BRANCH BLOCK LEFT ANTERIOR FASCICU LAR BLOCK ABNORMAL ECG PREVIOUS TRACING : 11/12/2016 19.34 Compared to prior tracing no significant change DOCTOR: Justin Chau Interpretating Date/Time 11/13/2016 16:45:06
--- NOTE | 2016-11-13 17:19 | EKG ---
Date Performed: 11/12/2016 Time Performed: 19:34:08 PTAGE: 76 years EKG: Sinus rhythm WITH FREQUENT VENTRICULAR PREMATURE COMPLEXES MARKED LEFT AXIS DEVIATION RIGHT BUNDLE BRANCH BLOCK A BNORMAL ECG PREVIOUS TRACING : 11/04/2016 21.20 Compared to prior tracing no significant change DOCTOR: Justin Chau Interpretating Date/Time 11/13/2016 17:18:54
--- NOTE | 2016-11-13 20:03 | MB ---
cc: WAYNE JONES DATE OF CONSULTATION: 11/13/2016 REASON FOR CONSULTATION: Hypoxic respiratory failure. REQUESTING PHYSICIAN: Dr. Giovanna Martínez. HISTORY OF PRESENT ILLNESS: Ms. Diaz is a pleasant 76-year-old female who is known to me from the office. She has had multiple admissions to the hospital. Recently she was admitted to this hospital. She has hypoxic respiratory failure. She was on BiPAP for quite some time and was weaned down to nasal cannula and she was transferred to the half-way. The patient was recuperating there. She started having shortness of breath over the last couple of days and she noticed that her saturation was dropping. She asked them to bring her to the hospital. They waited for another day. When she did not get better, and was getting worse, she was brought to the emergency room. She had a workup done. Her blood gas showed pH of 7.40, pC02 of 64, p02 of 73 on BiPAP. Her WBC count is 7.8, hemoglobin 11.3, hematocrit 34.8, MCV 93, platelet count 292,000. INR 0.9. Sodium 137, potassium 3.7, chloride 92, carbon dioxide 40, BUN 17, creatinine 0.93. BNP 96. Troponin is 0.02. Currently she is weaned down to 4 liters nasal cannula and she is doing much better and feels better. She denies any chest pain. No fever. No chills. PAST MEDICAL HISTORY: Her past medical history is significant for: 1. History of COPD. She is oxygen-dependent. 2. History of deep venous thrombosis. 3. Polycystic kidney disease. 4. Hypothyroidism. 5. Hypertension. 6. Angina. 7. Fibromyalgia. 8. Sciatica pain. 9. Diverticulosis. MEDICATIONS: She is currently takin. BREO 100/25 once a day. 2. Neurontin 600 milligrams twice a day. 3. Amlodipine 5 milligrams a day. 4. Mucinex 600 milligrams q. 12 hours. 5. Metoprolol 12.5 milligrams q. 12 hours. 6. Spironolactone 12.5 milligrams a day. 7. Lactinex 1 gram three times a day. 8. Xarelto 20 gentleman a day. 9. Prednisone 40 milligrams a day. 10. MiraLax 17 grams twice a day. 11. Ferrous sulfate 325 milligrams three times a day. 12. Albuterol and Atrovent nebulizer treatment. 13. Protonix 40 milligrams a day. 14. Oxycodone for pain. 15. Xanax PRN. ALLERGIES: 1. ZITHROMAX. 2. PENICILLIN. SOCIAL HISTORY: She has a history of smoking, which she quit. No alcohol use. She lives with her son. Currently she is in the half-way. REVIEW OF SYSTEMS: She feels weak, tired, gets anxious and the anxiety makes her breathing worse. No bleeding from any site. PHYSICAL EXAMINATION: GENERAL: Elderly female mild short of breath, feels weak, not in acute distress. VITAL SIGNS: Currently she is on 4 liters nasal cannula oxygen saturation 92% to 96%, blood pressure 133/67, heart rate 72, respirations 18, temperature 97.88. HEAD, EYES, EARS, NOSE, THROAT: Pupils are equal and reactive to light. Oral mucosa and nasal mucosa are normal. NECK: The neck is supple. JVP not raised. CHEST: Air entry equal bilaterally. Slightly decreased breath sounds at the bases. CARDIOVASCULAR: S1 and S2 normal. ABDOMEN: Abdomen benign. EXTREMITIES: No edema. IMPRESSION: 1. Hypoxic and hypercapnic respiratory failure. 2. COPD. 3. Anxiety disorder. 4. Hypertension. 5. Polycystic kidney disease. 6. History of DVT and pulmonary embolism. 7. Anemia. PLAN: The patient is currently on 4 liters nasal cannula and she is doing well with it. Will titrate oxygen to keep the saturation between 88% and 92%. Give her aerosol treatment, p.o. steroids, continue Xarelto and use C-PAP p.r.n. as needed. Further treatment will depend on the course in the hospital. Thank you, Dr. Giovanna Martínez, for this consult. Wayne Jones MD ADA/JCC /6:50 PM /7:50 PM
[2016-11-13] MEDS: GABAPENTIN 300 MG CAP PO SCH (21:57)
[2016-11-14] VITALS (11 sets, daily range): BP systolic 114–159; BP diastolic 61–75; PULSE 52–85; RESP 18–20; TEMP 97.6–98.8; O2SAT 85–95
[2016-11-14] MEDS: RESP: ALBUTEROL 2.5 MG/IPRATROPIUM 0.5 MG NEB (SCH) INH ×6 (00:13→21:15)
[2016-11-14] MEDS: FLUTICASONE 100 MCG/VILANTEROL 25 MCG INHALER INH SCH ×2 (00:14→21:01)
[2016-11-14] MEDS: PANTOPRAZOLE SODIUM 40 MG VIAL IV PUSH SCH (02:58)
[2016-11-14] MEDS: CHLORHEXIDINE GLUCONATE 2 % 1 PACK (2 CLOTHS) TOP SCH (04:00)
[2016-11-14 05:56] LABS: AUTOMATED NEUTROPHIL # 4.4 TH/MM3 (1.8-7.7); BASOPHIL % 0.4 % (0.0-2.0); HEMATOCRIT 36.3 % (35.0-46.0); HEMO FLAGS DIFF FINAL; LYMPH % 28.3 % (9.0-44.0); MEAN CELL VOLUME 94.9 FL (80.0-100.0); MEAN CORPUSCULAR HEMOGLOBIN 30.4 PG (27.0-34.0); MONO % 8.3 % (0.0-8.0); PLATELET COUNT 277 TH/MM3 (150-450); RED BLOOD COUNT 3.82 MIL/MM3 (4.00-5.30); RED CELL DISTRIBUTION WIDTH 17.4 % (11.6-17.2)
[2016-11-14 06:29] LABS: ALKALINE PHOSPHATASE 32 U/L (45-117); ALT (GPT) 19 U/L (10-53); ANION GAP 3 MEQ/L (5-15); AST (GOT) 12 U/L (15-37); BICARBONATE 38.9 MEQ/L (21.0-32.0); BLOOD UREA NITROGEN 23 MG/DL (7-18); CHLORIDE 95 MEQ/L (98-107); GLOMERULAR FILTRATION RATE 51 ML/MIN (>89); MAGNESIUM 2.5 MG/DL (1.5-2.5); POTASSIUM 3.9 MEQ/L (3.5-5.1); SODIUM (NA) 137 MEQ/L (136-145); TOTAL BILIRUBIN ADULT 0.4 MG/DL (0.2-1.0)
--- NOTE | 2016-11-14 07:46 | RADRPT ---
EXAM DATE/TIME: 11/14/2016 06:24 [place] COMPARISON: No previous studies available for comparison. INDICATIONS : Short of breath. MEDICAL HISTORY : Chronic obstructive pulmonary disease. SURGICAL HISTORY : None. ENCOUNTER: Subsequent ACUITY: 3 days PAIN SCORE: 0/10 LOCATION: Bilateral chest FINDINGS: There is mild bibasilar atelectasis again seen. Lung volumes are small. Small pleural effusions are l ikely. I don't see a pneumothorax. Heart size stable, upper limits of normal. Thoracic aorta is tortuous and atherosclerotic. CONCLUSION: No significant change. Jasper Springer MD on November 14, 2016 at 7:44 Board Certified Radiologist. This report was verified electronically.
[2016-11-14] MEDS: DOCUSATE SODIUM 50 MG/SENNA 8.6 MG TAB PO SCH ×2 (09:10→21:03)
[2016-11-14] MEDS: SPIRONOLACTONE 25 MG TAB PO SCH (09:10)
[2016-11-14] MEDS: RIVAROXABAN 20 MG TAB PO SCH (09:10)
[2016-11-14] MEDS: GABAPENTIN 300 MG CAP PO SCH ×2 (09:10→21:02)
[2016-11-14] MEDS: POLYETHYLENE GLYCOL 17 GM PKG PO SCH ×2 (09:11→21:03)
[2016-11-14] MEDS: FERROUS SULFATE 325 MG (65 MG ELEMENTAL IRON) TAB PO SCH ×3 (09:11→17:52)
[2016-11-14] MEDS: LACTOBACILLUS ACIDOPHILUS 1 GM PACKET PO SCH ×3 (09:11→17:52)
[2016-11-14] MEDS: METOPROLOL TARTRATE 25 MG TAB PO SCH ×2 (09:11→21:02)
[2016-11-14] MEDS: amLODIPine BESYLATE 5 MG TAB PO SCH (09:11)
[2016-11-14] MEDS: predniSONE 20 MG TAB PO SCH (09:11)
[2016-11-14] MEDS: guaiFENesin E.R. 600 MG TAB PO SCH ×2 (09:11→21:02)
[2016-11-14] MEDS: SODIUM CHLORIDE 0.9% FLUSH 10 ML FLUSH SCH ×2 (09:12→21:01)
--- NOTE | 2016-11-14 09:56 | HHI.PR ---
Subjective Remarks home specialist Notes: 76-year-old female with past medical history of diastolic heart failure, COPD with 4 L oxygen requirement and chronic CO2 retention, hypertension, hypothyroidism, hyperlipidemia, prior history of DVT and pulmonary embolism previously on Xarelto. She was recently admitted to [facility] 10/10/16 through 10/24/16 due to acute hypoxemic and hypercapnic respiratory failure requiring BiPAP and high flow nasal cannula. She was treated with a combination of steroids, abx, diuretics, had negative VQ scan and eventually was discharge to [facility]. She states that since discharge to rehabilitation that she feels that she has been gaining weight. She states that her daily weights have been increasing by nearly a pounds daily for the last 4-5 days. Is also noted significant swelling of her bilateral lower extremities. She has a cough which is productive of thick yellow sputum and she states that this is worse than her baseline. She denies chest pain, hemoptysis, fevers, chills, nausea, vomiting. She hasn't states that she has been intermittently having episodes of abrupt onset of shortness of breath and anxiety which she describes as "panic attacks" but the they are accompanied by hypoxemia. She had an episodes like this this evening and sats were in the 80s on 4 L nasal cannula so she requested evaluation in the hospital. Upon arrival to the ER her sats remained in the 80s and she was placed on BiPAP / with FiO2 to 60% to maintain sat at 90%. ABG demonstrated chronic hypercapneic respiraory failure with hypoxemia (pH 7.4/ PaCO2 64/PA O2 of 73/bicarbonate 39). She was given budesonide, albuterol x4, Lasix 20 mg IV, Solu-Medrol 60 mg IV and states she is feels much better than when she arrived. Her white count is normal. Chest x-ray demonstrates left lower lobe opacity (she also has h/o opacity and bronchiectasis in that location ). She states she feels significantly improved after these measures and desires to do a trial off of BiPAP. Sats are 90% on 6 L nasal cannula. 11/14: Seen in her bedroom, no nausea, vomit or diarrhea, continue Respiratory therapy, improving clinically, Objective Vital Signs Date Time Temp Pulse Resp B/P Pulse Ox O2 Delivery O2 Flow Rate FiO2 5/26/17 08:45 92 Nasal Cannula 4.00 11/14/16 08:00 98.8 85 20 159/73 85 11/14/16 04:00 98.1 52 18 141/71 90 11/14/16 00:00 97.6 61 18 136/75 91 11/13/16 21:50 Nasal Cannula 5.00 Humidified 11/13/16 21:16 94 4.00 11/13/16 20:17 70 11/13/16 20:08 98.2 69 16 151/77 91 11/13/16 20:00 Nasal Cannula 5.00 Humidified 11/13/16 16:00 82 11/13/16 15:40 Nasal Cannula 5.00 Humidified 11/13/16 15:30 97.8 62 18 133/67 92 11/13/16 14:00 60 11/13/16 12:00 60 11/13/16 12:00 98.4 60 18 149/73 96 11/13/16 10:00 58 I/O 11/13/16 11/13/16 11/13/16 11/14/16 11/14/16 11/14/16 07:00 15:00 23:00 07:00 15:00 23:00 Intake Total 480 ml 0 ml 0 ml Output Total 3500 ml 450 ml Balance -3500 ml 30 ml 0 ml 0 ml Intake Oral 480 ml 0 ml 0 ml Output Urine Total 3500 ml 450 ml # Voids 3 1 # Bowel Movements 0 0 Result Diagram: 11/14/16 0538 11/14/16 0538 Imaging Last Impressions Chest X-Ray 11/14/16 0600 Signed Impressions: Service Date/Time: Monday, November 14, 2016 06:24 - CONCLUSION: No significant change. Jasper Springer MD CT Angiography 11/13/16 0000 Signed Impressions: Service Date/Time: October 02:43 - CONCLUSION: Marked passive atelectasis both lung bases. Excellent opacification of pulmonary arteries without evidence of pulmonary embolism. Small bilateral pleural effusions. Distended esophagus. Av Ramirez MD Procedures No procedures performed. Other Results Laboratory Tests Test 11/12/16 11/12/16 11/13/16 11/13/16 19:40 20:50 04:00 20:12 Prothrombin Time 9.9 SEC Prothromb Time International 0.9 RATIO Ratio Activated Partial 24.5 SEC Thromboplast Time Total Creatine Kinase 38 U/L B-Type Natriuretic Peptide 96 PG/ML Blood Gas Puncture Site LT RADIAL Blood Gas Patient Temperature 98.6 Blood Gas HCO3 39 mmol/L Blood Gas Base Excess 13.4 mmol/L Blood Gas Oxygen Saturation 94 % Arterial Blood pH 7.40 Arterial Blood Partial 64 mmHg Pressure CO2 Arterial Blood Partial 73 mmHG Pressure O2 Arterial Blood Oxygen Content 14.5 Vol % Arterial Blood 1.7 % Carboxyhemoglobin Arterial Blood Methemoglobin 0.7 % Blood Gas Hemoglobin 11.0 G/DL Oxygen Delivery Device BiPAP Blood Gas Ventilator Setting 16/6 Blood Gas Inspired Oxygen 60 % Nasal Screen MRSA (PCR) MRSA NOT DETECTED Troponin I 0.05 NG/ML Test 11/14/16 05:38 White Blood Count 7.0 TH/MM3 Red Blood Count 3.82 MIL/MM3 Hemoglobin 11.6 GM/DL Hematocrit 36.3 % Mean Corpuscular Volume 94.9 FL Mean Corpuscular Hemoglobin 30.4 PG Mean Corpuscular Hemoglobin 32.0 % Concent Red Cell Distribution Width 17.4 % Platelet Count 277 TH/MM3 Mean Platelet Volume 7.6 FL Neutrophils (%) (Auto) 63.0 % Lymphocytes (%) (Auto) 28.3 % Monocytes (%) (Auto) 8.3 % Eosinophils (%) (Auto) 0.0 % Basophils (%) (Auto) 0.4 % Neutrophils # (Auto) 4.4 TH/MM3 Lymphocytes # (Auto) 2.0 TH/MM3 Monocytes # (Auto) 0.6 TH/MM3 Eosinophils # (Auto) 0.0 TH/MM3 Basophils # (Auto) 0.0 TH/MM3 CBC Comment DIFF FINAL Differential Comment Sodium Level 137 MEQ/L Potassium Level 3.9 MEQ/L Chloride Level 95 MEQ/L Carbon Dioxide Level 38.9 MEQ/L Anion Gap 3 MEQ/L Blood Urea Nitrogen 23 MG/DL Creatinine 1.04 MG/DL Estimat Glomerular Filtration 51 ML/MIN Rate Random Glucose 85 MG/DL Calcium Level 9.3 MG/DL Phosphorus Level 3.7 MG/DL Magnesium Level 2.5 MG/DL Total Bilirubin 0.4 MG/DL Aspartate Amino Transf 12 U/L (AST/SGOT) Alanine Aminotransferase 19 U/L (ALT/SGPT) Alkaline Phosphatase 32 U/L Total Protein 5.9 GM/DL Albumin 2.8 GM/DL Objective Remarks GENERAL: Well-developed who is chronically ill. SKIN: Warm and dry. HEAD: Atraumatic. Normocephalic. EYES: Pupils equal and round. No scleral icterus. No injection or drainage. ENT: No nasal bleeding or discharge. Mucous membranes pink, slightly dry. NECK: Trachea midline. No JVD. CARDIOVASCULAR: Regular rate and rhythm, sinus rhythm on the monitor with rate in the 60s. No murmurs rubs or gallops appreciated. RESPIRATORY: Decreased breath sounds bilateral, no wheezing, has bilateral fine inspiratory crackles on both bases. GASTROINTESTINAL: Abdomen soft, non-tender, nondistended. Bowel sounds present. Hepatic and splenic margins not palpable. MUSCULOSKELETAL: Extremities without clubbing, cyanosis. There is 2+ pitting edema bilaterally. NEUROLOGICAL: Awake and alert. No focal deficits. Medications and IVs Current Medications Medications (Trade) Dose Ordered Sig/Lili Route Start Time Stop Time Status Last Admin (Xanax) 0.25 mg Q8H PRN PO 11/13/16 01:15 11/13/16 06:17 (Norvasc) 5 mg DAILY PO 11/13/16 09:00 11/14/16 09:11 (Breo Ellipta 100-25 Inh) 1 puff HS INH 11/13/16 21:00 11/14/16 00:14 (Mucinex Er) 600 mg Q12HR PO 11/13/16 09:00 11/14/16 09:11 (Lopressor) 12.5 mg Q12HR PO 11/13/16 09:00 11/14/16 09:11 (Percocet 10-325 Mg) 1 tab Q6H PRN PO 11/13/16 01:15 11/13/16 22:02 (Aldactone) 12.5 mg DAILY PO 11/13/16 09:00 11/14/16 09:10 (Ferrous Sulfate) 325 mg TIDAC PO 11/13/16 08:00 11/14/16 09:11 (Pill Splitter) 1 ea UNSCH PRN OTHER 11/13/16 01:30 (NS Flush) 2 ml UNSCH PRN .XX 11/13/16 01:15 (NS Flush) 2 ml BID .XX 11/13/16 09:00 11/14/16 09:12 (Tylenol) 650 mg Q6H PRN PO 11/13/16 01:15 (Zofran Inj) 4 mg Q6H PRN IV 11/13/16 01:15 Miscellaneous Information 1 Q361D XX 11/13/16 01:15 11/13/16 01:15 (Chlorhexidine 2% Cloth) 3 pack Taper DAILY@04 TOP 11/13/16 04:00 11/09/17 03:59 11/13/16 04:00 (Chlorhexidine 2% Cloth) 3 pack UNSCH PRN TOP 11/13/16 01:15 (Lynn-Colace) 1 tab BID PO 11/13/16 09:00 11/14/16 09:10 (Milk Of Magnesia Liq) 30 ml Q12H PRN PO 11/13/16 01:15 (Senokot) 17.2 mg Q12H PRN PO 11/13/16 01:15 (Dulcolax Supp) 10 mg DAILY PRN RECTAL 11/13/16 01:15 (Lactulose Liq) 30 ml DAILY PRN PO 11/13/16 01:15 (Lactinex Pkt) 1 gm TID PO 11/13/16 09:00 11/14/16 09:11 (Xarelto) 20 mg DAILY PO 11/13/16 09:00 11/14/16 09:10 (D50w (Vial) Inj) 50 ml UNSCH PRN IV 11/13/16 02:15 (Glucagon Inj) 1 mg UNSCH PRN OTHER 11/13/16 02:15 (Protonix Inj) 40 mg Q24H IV PUSH 11/13/16 03:00 11/14/16 02:58 (Deltasone) 40 mg DAILY PO 11/13/16 09:00 11/14/16 09:11 (Miralax) 17 gm BID PO 11/13/16 09:00 11/14/16 09:11 (Neurontin) 600 mg BID PO 11/13/16 21:00 11/14/16 09:10 A/P Assessment and Plan 1. Chronic Pain syndrome/Anxiety disorder/Fibromyalgia on Gabapentin, Xanax and Oxycodone 2. Acute Hypoxemic Respiratory failure on chronic Hypoxemia and Hypercapnia/ Bronchiectasis End stage COPD, Breo 1 puff QHS, Mucolytic, Bronchodilators, Steroids. forestry support specialist following. 3. Hypertension/Hyperlipidemia/Chronic Diastolic Heart Disease recent Echocardiogram 10/14/16 EF 60-65%, No regional wall motion abnormalities, Moderate LVH, Amlodipine, BB, Spironolactone, Diamox, on hold Lasix due to further worsening of metabolic alkalosis made decrease respiratory drive 4. Polycystic Kidney disease, Fuentes cath in place 5. History of DVT and PE/Iron deficiency anemia, previously on Xarelto, was re started on Lovenox for 3 days and then transfer to Xarelto. PROPH: Xarelto will provide DVT prophylaxis as per above. Protonix 40 mg IV daily for stress ulcer prophylaxis. Discharge Planning Awaiting final recommendations by forestry support specialist for discharge. Galileo Gomez MD November 14, 2016 09:55
[2016-11-14] MEDS: RESP: ALBUTEROL 2.5 MG/3 ML NEB (PRN) INH ×2 (10:30→21:06)
--- NOTE | 2016-11-14 14:28 | EKG ---
Date Performed: 11/13/2016 Time Performed: 14:28:06 PTAGE: 76 years EKG: Sinus rhythm WITH OCCASIONAL VENTRICULAR PREMATURE COMPLEXES MARKED LEFT AXIS DEVIATION RIGHT BUNDLE BRANCH BLOCK POSSIBLE ANTERIOR MYOCARDIAL INFARCTION , OF INDETERMINATE AGE MODERATE T-WAVE ABNORMALITY, CONSIDER LATERAL ISCHEMIA ABNORMAL ECG Compared to prior tracing no significant change PREVIOUS TRACING : 11/13/2016 07.35 DOCTOR: Justin Acharya Interpretating Date/Time 11/14/2016 14:23:01
[2016-11-14] MEDS: oxyCODONE/ACETAMINOPHEN 10 MG/325 MG TAB PO PRN (15:18)
[2016-11-14] MEDS: ALPRAZolam 0.25 MG TAB PO PRN (15:20)
--- NOTE | 2016-11-14 16:04 | EKG ---
Date Performed: 11/13/2016 Time Performed: 21:06:35 PTAGE: 76 years EKG: Sinus rhythm RIGHT BUNDLE BRANCH BLOCK LEFT ANTERIOR FASCICULAR BLOCK Poor R wave progression, consider old anter ior infarction. Since previous tracing, no significant change noted ABNORMAL ECG PREVIOUS TRACING : 11/13/2016 14.28 DOCTOR: Justin Acharya Interpretating Date/Time 11/14/2016 16:03:35
--- NOTE | 2016-11-14 17:12 | HHI.PR ---
Subjective Remarks 76 YOWF with COPD,DVT,PE has mild sob Some time feels sleepy No CP no cough or sputum no Fever Objective Vital Signs Vital Signs Date Time Temp Pulse Resp B/P Pulse Ox O2 Delivery O2 Flow Rate FiO2 11/14/16 16:29 90 Non-Rebreather 15.00 100 11/14/16 16:00 98.8 63 20 130/63 90 11/14/16 12:00 98.8 57 20 114/61 85 11/14/16 09:22 55 11/14/16 09:22 Nasal Cannula 5.00 11/14/16 08:45 92 Nasal Cannula 4.00 11/14/16 08:00 98.8 85 20 159/73 85 11/14/16 04:00 98.1 52 18 141/71 90 11/14/16 00:00 97.6 61 18 136/75 91 11/13/16 21:50 Nasal Cannula 5.00 Humidified 11/13/16 21:16 94 4.00 11/13/16 20:17 70 11/13/16 20:08 98.2 69 16 151/77 91 11/13/16 20:00 Nasal Cannula 5.00 Humidified I/O 11/13/16 11/13/16 11/13/16 11/14/16 11/14/16 11/14/16 07:00 15:00 23:00 07:00 15:00 23:00 Intake Total 480 ml 0 ml 0 ml 240 ml Output Total 3500 ml 450 ml Balance -3500 ml 30 ml 0 ml 0 ml 240 ml Intake Oral 480 ml 0 ml 0 ml 240 ml Output Urine Total 3500 ml 450 ml # Voids 3 1 3 # Bowel Movements 0 0 0 Result Diagram: 11/14/16 0538 11/14/16 0538 Objective Remarks GENERAL: MBMN WF, mild sob SKIN: Warm and dry. HEAD: Normocephalic. EYES: No scleral icterus. No injection or drainage. NECK: Supple, trachea midline. No JVD or lymphadenopathy. CARDIOVASCULAR: Regular rate and rhythm without murmurs, gallops, or rubs. RESPIRATORY: Breath sounds equal bilaterally. No accessory muscle use. GASTROINTESTINAL: Abdomen soft, non-tender, nondistended. MUSCULOSKELETAL: No cyanosis, or edema. BACK: Nontender without obvious deformity. No CVA tenderness. A/P Assessment and Plan Hypercapnoic and Hypoxic RF COPD HTN H/O DVT and PE Polycystic kidney diasease. PLAN: PO Prednisone Aerosol nebs Breo Ellipta once daily Cont xarelto Keep sat 88_92% CPAP prn sob/ lethargy. Arvind Cummings MD November 14, 2016 17:12
[2016-11-15] VITALS (9 sets, daily range): BP systolic 116–144; BP diastolic 61–83; PULSE 54–93; RESP 16–20; TEMP 97.4–98.3; O2SAT 89–99
[2016-11-15] MEDS: RESP: ALBUTEROL 2.5 MG/IPRATROPIUM 0.5 MG NEB (SCH) INH ×6 (00:05→20:48)
[2016-11-15] MEDS: PANTOPRAZOLE SODIUM 40 MG VIAL IV PUSH SCH (01:16)
[2016-11-15] MEDS: CHLORHEXIDINE GLUCONATE 2 % 1 PACK (2 CLOTHS) TOP SCH (04:00)
[2016-11-15] MEDS: predniSONE 20 MG TAB PO SCH (09:00)
[2016-11-15] MEDS: METOPROLOL TARTRATE 25 MG TAB PO SCH ×2 (09:00→21:12)
[2016-11-15] MEDS: guaiFENesin E.R. 600 MG TAB PO SCH ×2 (09:08→21:11)
[2016-11-15] MEDS: SPIRONOLACTONE 25 MG TAB PO SCH (09:09)
[2016-11-15] MEDS: POLYETHYLENE GLYCOL 17 GM PKG PO SCH ×2 (09:10→21:12)
[2016-11-15] MEDS: LACTOBACILLUS ACIDOPHILUS 1 GM PACKET PO SCH ×3 (09:10→18:29)
[2016-11-15] MEDS: GABAPENTIN 300 MG CAP PO SCH ×2 (09:10→21:14)
[2016-11-15] MEDS: oxyCODONE/ACETAMINOPHEN 10 MG/325 MG TAB PO PRN ×2 (09:10→21:12)
[2016-11-15] MEDS: RIVAROXABAN 20 MG TAB PO SCH (09:11)
[2016-11-15] MEDS: amLODIPine BESYLATE 5 MG TAB PO SCH (09:11)
[2016-11-15] MEDS: FERROUS SULFATE 325 MG (65 MG ELEMENTAL IRON) TAB PO SCH ×3 (09:11→18:29)
[2016-11-15] MEDS: SODIUM CHLORIDE 0.9% FLUSH 10 ML FLUSH SCH ×2 (09:13→21:14)
[2016-11-15] MEDS: DOCUSATE SODIUM 50 MG/SENNA 8.6 MG TAB PO SCH ×2 (09:14→21:11)
--- NOTE | 2016-11-15 16:19 | HHI.PR ---
Subjective Remarks 76 YOWF with COPD,DVT,PE has mild sob No CP no cough or sputum no Fever Breathing better Objective Vital Signs Vital Signs Date Time Temp Pulse Resp B/P Pulse Ox O2 Delivery O2 Flow Rate FiO2 11/15/16 12:00 98.0 62 16 116/61 94 11/15/16 09:00 96 Nasal Cannula 4.00 11/15/16 08:12 92 Nasal Cannula 4.00 11/15/16 08:00 98.3 55 20 143/67 96 11/15/16 05:00 99 50 11/15/16 04:00 97.4 55 20 144/79 96 11/15/16 00:29 95 Bi-Pap 11/15/16 00:00 97.8 62 20 121/62 98 11/15/16 00:00 93 50 11/14/16 23:50 91 Nasal Cannula 4.00 11/14/16 21:08 Nasal Cannula 4.00 11/14/16 21:07 89 Nasal Cannula 4.00 11/14/16 20:00 98.1 62 18 114/65 89 11/14/16 20:00 59 11/14/16 17:56 Nasal Cannula 4.00 11/14/16 17:12 95 11/14/16 16:29 90 Non-Rebreather 15.00 100 I/O 11/14/16 11/14/16 11/14/16 11/15/16 11/15/16 11/15/16 07:00 15:00 23:00 07:00 15:00 23:00 Intake Total 0 ml 240 ml 0 ml Output Total 400 ml Balance 0 ml 240 ml -400 ml 0 ml Intake Oral 0 ml 240 ml 0 ml Output Urine Total 400 ml # Voids 1 3 1 0 # Bowel Movements 0 0 0 0 Result Diagram: 11/14/1638 11/14/16 0538 Objective Remarks GENERAL: MBMN WF, mild sob SKIN: Warm and dry. HEAD: Normocephalic. EYES: No scleral icterus. No injection or drainage. NECK: Supple, trachea midline. No JVD or lymphadenopathy. CARDIOVASCULAR: Regular rate and rhythm without murmurs, gallops, or rubs. RESPIRATORY: Breath sounds equal bilaterally. No accessory muscle use. GASTROINTESTINAL: Abdomen soft, non-tender, nondistended. MUSCULOSKELETAL: No cyanosis, or edema. BACK: Nontender without obvious deformity. No CVA tenderness. A/P Assessment and Plan Hypercapnoic and Hypoxic RF COPD HTN H/O DVT and PE Polycystic kidney diasease. PLAN: PO Prednisone Aerosol nebs Breo Ellipta once daily Cont xarelto Keep sat 88_92% CPAP prn sob/ lethargy. OOB and ambulate Arvind Cummings MD November 15, 2016 16:19
--- NOTE | 2016-11-15 17:55 | HHI.PR ---
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 She was recently admitted to [facility] 10/10/16 through 10/24/16 due to acute hypoxemic and hypercapnic respiratory failure requiring BiPAP and high flow nasal cannula. She was treated with a combination of steroids, abx, diuretics, had negative VQ scan and eventually was discharge to [facility] and rehabilitation. She states that since discharge to rehabilitation that she feels that she has been gaining weight. She states that her daily weights have been increasing by nearly a pounds daily for the last 4-5 days. Is also noted significant swelling of her bilateral lower extremities. She has a cough which is productive of thick yellow sputum and she states that this is worse than her baseline. She denies chest pain, hemoptysis, fevers, chills, nausea, vomiting. She hasn't states that she has been intermittently having episodes of abrupt onset of shortness of breath and anxiety which she describes as "panic attacks" but the they are accompanied by hypoxemia. She had an episodes like this this evening and sats were in the 80s on 4 L nasal cannula so she requested evaluation in the hospital. Upon arrival to the ER her sats remained in the 80s and she was placed on BiPAP / with FiO2 to 60% to maintain sat at 90%. ABG demonstrated chronic hypercapneic respiraory failure with hypoxemia (pH 7.4/ PaCO2 64/PA O2 of 73/bicarbonate 39). She was given budesonide, albuterol x4, Lasix 20 mg IV, Solu-Medrol 60 mg IV and states she is feels much better than when she arrived. Her white count is normal. Chest x-ray demonstrates left lower lobe opacity (she also has h/o opacity and bronchiectasis in that location ). She states she feels significantly improved after these measures and desires to do a trial off of BiPAP. Sats are 90% on 6 L nasal cannula. 11/15: Patient stable no nausea, vomit or diarrhea, continue respiratory therapy , will increase activity, asked for PT evaluation and treatment. she is on Prednisone 40 mg daily Discussed with Accounts Receivable Clerk and nurse Miss Vital. Objective Vital Signs Date Time Temp Pulse Resp B/P Pulse Ox O2 Delivery O2 Flow Rate FiO2 11/15/16 16:00 97.9 93 20 124/69 93 11/15/16 12:00 98.0 62 16 116/61 94 11/15/16 09:00 96 Nasal Cannula 4.00 11/15/16 08:12 92 Nasal Cannula 4.00 11/15/16 08:00 98.3 55 20 143/67 96 11/15/16 05:00 99 50 11/15/16 04:00 97.4 55 20 144/79 96 11/15/16 00:29 95 Bi-Pap 11/15/16 00:00 97.8 62 20 121/62 98 11/15/16 00:00 93 50 11/14/16 23:50 91 Nasal Cannula 4.00 11/14/16 21:08 Nasal Cannula 4.00 11/14/16 21:07 89 Nasal Cannula 4.00 11/14/16 20:00 98.1 62 18 114/65 89 11/14/16 20:00 59 11/14/16 17:56 Nasal Cannula 4.00 I/O 11/14/16 11/14/16 11/14/16 11/15/16 11/15/16 11/15/16 07:00 15:00 23:00 07:00 15:00 23:00 Intake Total 0 ml 240 ml 0 ml Output Total 400 ml Balance 0 ml 240 ml -400 ml 0 ml Intake Oral 0 ml 240 ml 0 ml Output Urine Total 400 ml # Voids 1 3 1 0 # Bowel Movements 0 0 0 0 Result Diagram: 11/14/16 0538 11/14/16 0538 Imaging Last Impressions Chest X-Ray 11/14/16 0600 Signed Impressions: Service Date/Time: Monday, November 14, 2016 06:24 - CONCLUSION: No significant change. Jasper Springer MD CT Angiography 11/13/16 0000 Signed Impressions: Service Date/Time: October 02:43 - CONCLUSION: Marked passive atelectasis both lung bases. Excellent opacification of pulmonary arteries without evidence of pulmonary embolism. Small bilateral pleural effusions. Distended esophagus. Av Ramirez MD Procedures No procedures performed. Other Results Laboratory Tests Test 11/12/16 11/12/16 11/13/16 11/13/16 19:40 20:50 04:00 20:12 Prothrombin Time 9.9 SEC Prothromb Time International 0.9 RATIO Ratio Activated Partial 24.5 SEC Thromboplast Time Total Creatine Kinase 38 U/L B-Type Natriuretic Peptide 96 PG/ML Blood Gas Puncture Site LT RADIAL Blood Gas Patient Temperature 98.6 Blood Gas HCO3 39 mmol/L Blood Gas Base Excess 13.4 mmol/L Blood Gas Oxygen Saturation 94 % Arterial Blood pH 7.40 Arterial Blood Partial 64 mmHg Pressure CO2 Arterial Blood Partial 73 mmHG Pressure O2 Arterial Blood Oxygen Content 14.5 Vol % Arterial Blood 1.7 % Carboxyhemoglobin Arterial Blood Methemoglobin 0.7 % Blood Gas Hemoglobin 11.0 G/DL Oxygen Delivery Device BiPAP Blood Gas Ventilator Setting 16/6 Blood Gas Inspired Oxygen 60 % Nasal Screen MRSA (PCR) MRSA NOT DETECTED Troponin I 0.05 NG/ML Test 11/14/16 05:38 White Blood Count 7.0 TH/MM3 Red Blood Count 3.82 MIL/MM3 Hemoglobin 11.6 GM/DL Hematocrit 36.3 % Mean Corpuscular Volume 94.9 FL Mean Corpuscular Hemoglobin 30.4 PG Mean Corpuscular Hemoglobin 32.0 % Concent Red Cell Distribution Width 17.4 % Platelet Count 277 TH/MM3 Mean Platelet Volume 7.6 FL Neutrophils (%) (Auto) 63.0 % Lymphocytes (%) (Auto) 28.3 % Monocytes (%) (Auto) 8.3 % Eosinophils (%) (Auto) 0.0 % Basophils (%) (Auto) 0.4 % Neutrophils # (Auto) 4.4 TH/MM3 Lymphocytes # (Auto) 2.0 TH/MM3 Monocytes # (Auto) 0.6 TH/MM3 Eosinophils # (Auto) 0.0 TH/MM3 Basophils # (Auto) 0.0 TH/MM3 CBC Comment DIFF FINAL Differential Comment Sodium Level 137 MEQ/L Potassium Level 3.9 MEQ/L Chloride Level 95 MEQ/L Carbon Dioxide Level 38.9 MEQ/L Anion Gap 3 MEQ/L Blood Urea Nitrogen 23 MG/DL Creatinine 1.04 MG/DL Estimat Glomerular Filtration 51 ML/MIN Rate Random Glucose 85 MG/DL Calcium Level 9.3 MG/DL Phosphorus Level 3.7 MG/DL Magnesium Level 2.5 MG/DL Total Bilirubin 0.4 MG/DL Aspartate Amino Transf 12 U/L (AST/SGOT) Alanine Aminotransferase 19 U/L (ALT/SGPT) Alkaline Phosphatase 32 U/L Total Protein 5.9 GM/DL Albumin 2.8 GM/DL Objective Remarks GENERAL: Well-developed, no acute distress. SKIN: Warm and dry. HEAD: Atraumatic. Normocephalic. EYES: Pupils equal and round. No scleral icterus. No injection or drainage. ENT: No nasal bleeding or discharge. NECK: Trachea midline. No JVD. CARDIOVASCULAR: Regular rate and rhythm, sinus rhythm. RESPIRATORY: Decreased breath sounds bilateral, no wheezing, fine crackles on inspiration on both bases. GASTROINTESTINAL: Abdomen soft, non-tender, nondistended. MUSCULOSKELETAL: Extremities without clubbing, cyanosis. No Edema. NEUROLOGICAL: Awake and alert. No focal deficits. Medications and IVs Current Medications Medications (Trade) Dose Ordered Sig/Lili Route Start Time Stop Time Status Last Admin (Xanax) 0.25 mg Q8H PRN PO 11/13/16 01:15 11/14/16 15:20 (Norvasc) 5 mg DAILY PO 11/13/16 09:00 11/15/16 09:11 (Breo Ellipta 100-25 Inh) 1 puff HS INH 11/13/16 21:00 11/14/16 21:01 (Mucinex Er) 600 mg Q12HR PO 11/13/16 09:00 11/15/16 09:08 (Lopressor) 12.5 mg Q12HR PO 11/13/16 09:00 11/14/16 21:02 (Percocet 10-325 Mg) 1 tab Q6H PRN PO 11/13/16 01:15 11/15/16 09:10 (Aldactone) 12.5 mg DAILY PO 11/13/16 09:00 11/15/16 09:09 (Ferrous Sulfate) 325 mg TIDAC PO 11/13/16 08:00 11/15/16 12:01 (Pill Splitter) 1 ea UNSCH PRN OTHER 11/13/16 01:30 (NS Flush) 2 ml UNSCH PRN .XX 11/13/16 01:15 11/15/16 01:18 (NS Flush) 2 ml BID .XX 11/13/16 09:00 11/15/16 09:13 (Tylenol) 650 mg Q6H PRN PO 11/13/16 01:15 (Zofran Inj) 4 mg Q6H PRN IV 11/13/16 01:15 Miscellaneous Information 1 Q361D XX 11/13/16 01:15 11/13/16 01:15 (Chlorhexidine 2% Cloth) 3 pack Taper DAILY@04 TOP 11/13/16 04:00 11/09/17 03:59 11/13/16 04:00 (Chlorhexidine 2% Cloth) 3 pack UNSCH PRN TOP 11/13/16 01:15 (Lynn-Colace) 1 tab BID PO 11/13/16 09:00 11/15/16 09:14 (Milk Of Magnesia Liq) 30 ml Q12H PRN PO 11/13/16 01:15 (Senokot) 17.2 mg Q12H PRN PO 11/13/16 01:15 (Dulcolax Supp) 10 mg DAILY PRN RECTAL 11/13/16 01:15 (Lactulose Liq) 30 ml DAILY PRN PO 11/13/16 01:15 (Lactinex Pkt) 1 gm TID PO 11/13/16 09:00 11/15/16 12:01 (Xarelto) 20 mg DAILY PO 11/13/16 09:00 11/15/16 09:11 (D50w (Vial) Inj) 50 ml UNSCH PRN IV 11/13/16 02:15 (Glucagon Inj) 1 mg UNSCH PRN OTHER 11/13/16 02:15 (Protonix Inj) 40 mg Q24H IV PUSH 11/13/16 03:00 11/15/16 01:16 (Deltasone) 40 mg DAILY PO 11/13/16 09:00 11/15/16 09:00 (Miralax) 17 gm BID PO 11/13/16 09:00 11/15/16 09:10 (Neurontin) 600 mg BID PO 11/13/16 21:00 11/15/16 09:10 A/P Assessment and Plan 1. Chronic Pain syndrome/Anxiety disorder/Fibromyalgia on Gabapentin, Xanax and Oxycodone 2. Acute Hypoxemic Respiratory failure on chronic Hypoxemia and Hypercapnia/ Bronchiectasis End stage COPD, Breo 1 puff QHS, Mucolytic, Bronchodilators, Steroids. 3. Hypertension/Hyperlipidemia/Chronic Diastolic Heart Disease recent Echocardiogram 10/14/16 EF 60-65%, No regional wall motion abnormalities, Moderate LVH, Amlodipine, BB, Spironolactone, Diamox, on hold Lasix due to further worsening of metabolic alkalosis made decrease respiratory drive 4. Polycystic Kidney disease, Fuentes cath in place 5. History of DVT and PE/Iron deficiency anemia, previously on Xarelto, was re started on Lovenox for 3 days and then transfer to Xarelto that was started yesterday by Critical Care physician at 20 mg daily. PROPH: Xarelto will provide DVT prophylaxis as per above. Protonix 40 mg IV daily for stress ulcer prophylaxis. Activity up at [facility] PT evaluation. Discharge Planning awaiting final by clinical education specialist for discharge. Galileo Gomez MD November 15, 2016 17:55
[2016-11-15] MEDS: FLUTICASONE 100 MCG/VILANTEROL 25 MCG INHALER INH SCH (21:13)
[2016-11-16] VITALS (9 sets, daily range): BP systolic 125–132; BP diastolic 60–98; PULSE 51–104; RESP 12–20; TEMP 98–98.8; O2SAT 89–96
[2016-11-16] MEDS: RESP: ALBUTEROL 2.5 MG/IPRATROPIUM 0.5 MG NEB (SCH) INH ×6 (00:02→20:52)
[2016-11-16] MEDS: CHLORHEXIDINE GLUCONATE 2 % 1 PACK (2 CLOTHS) TOP SCH (04:00)
[2016-11-16] MEDS: PANTOPRAZOLE SODIUM 40 MG VIAL IV PUSH SCH (04:01)
[2016-11-16] MEDS: oxyCODONE/ACETAMINOPHEN 10 MG/325 MG TAB PO PRN ×3 (04:45→20:32)
[2016-11-16] MEDS: METOPROLOL TARTRATE 25 MG TAB PO SCH ×2 (08:27→20:32)
[2016-11-16] MEDS: SPIRONOLACTONE 25 MG TAB PO SCH (08:27)
[2016-11-16] MEDS: guaiFENesin E.R. 600 MG TAB PO SCH ×2 (08:27→20:32)
[2016-11-16] MEDS: RIVAROXABAN 20 MG TAB PO SCH (08:27)
[2016-11-16] MEDS: amLODIPine BESYLATE 5 MG TAB PO SCH (08:27)
[2016-11-16] MEDS: LACTOBACILLUS ACIDOPHILUS 1 GM PACKET PO SCH ×3 (08:27→16:51)
[2016-11-16] MEDS: DOCUSATE SODIUM 50 MG/SENNA 8.6 MG TAB PO SCH ×2 (08:27→20:32)
[2016-11-16] MEDS: POLYETHYLENE GLYCOL 17 GM PKG PO SCH ×2 (08:27→20:33)
[2016-11-16] MEDS: FERROUS SULFATE 325 MG (65 MG ELEMENTAL IRON) TAB PO SCH ×3 (08:27→16:51)
[2016-11-16] MEDS: SODIUM CHLORIDE 0.9% FLUSH 10 ML FLUSH SCH ×2 (08:28→20:33)
[2016-11-16] MEDS: GABAPENTIN 300 MG CAP PO SCH ×2 (08:28→20:32)
[2016-11-16] MEDS: predniSONE 20 MG TAB PO SCH (08:28)
--- NOTE | 2016-11-16 14:03 | HHI.PR ---
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 She was recently admitted to [facility] 10/10/16 through 10/24/16 due to acute hypoxemic and hypercapnic respiratory failure requiring BiPAP and high flow nasal cannula. She was treated with a combination of steroids, abx, diuretics, had negative VQ scan and eventually was discharge to [facility] and rehabilitation. She states that since discharge to rehabilitation that she feels that she has been gaining weight. She states that her daily weights have been increasing by nearly a pounds daily for the last 4-5 days. Is also noted significant swelling of her bilateral lower extremities. She has a cough which is productive of thick yellow sputum and she states that this is worse than her baseline. She denies chest pain, hemoptysis, fevers, chills, nausea, vomiting. She hasn't states that she has been intermittently having episodes of abrupt onset of shortness of breath and anxiety which she describes as "panic attacks" but the they are accompanied by hypoxemia. She had an episodes like this this evening and sats were in the 80s on 4 L nasal cannula so she requested evaluation in the hospital. Upon arrival to the ER her sats remained in the 80s and she was placed on BiPAP 12/6 with FiO2 to 60% to maintain sat at 90%. ABG demonstrated chronic hypercapneic respiraory failure with hypoxemia (pH 7.4/ PaCO2 64/PA O2 of 73/bicarbonate 39). She was given budesonide, albuterol x4, Lasix 20 mg IV, Solu-Medrol 60 mg IV and states she is feels much better than when she arrived. Her white count is normal. Chest x-ray demonstrates left lower lobe opacity (she also has h/o opacity and bronchiectasis in that location ). She states she feels significantly improved after these measures and desires to do a trial off of BiPAP. Sats are 90% on 6 L nasal cannula. Hospitalist Notes: 11/15: Continue respiratory therapy, will increase activity, asked for PT evaluation and treatment. she is on Prednisone 40 mg daily Discussed with Belt Sander Stone and nurse Miss Vital. 11/16; Seen in her bedroom in the presence of nurse Miss Servin and her Respiratory therapy specialist, receiving Bronchodilator therapy at this time No nausea, vomit or diarrhea, complaint of right earache. Objective Vital Signs Date Time Temp Pulse Resp B/P Pulse Ox O2 Delivery O2 Flow Rate FiO2 11/16/16 12:00 98.8 51 16 132/66 96 11/16/16 09:32 Nasal Cannula 4.00 50 11/16/16 08:27 96 Nasal Cannula 4.00 11/16/16 08:00 98.1 104 12 132/73 93 11/16/16 04:00 98.0 62 20 127/76 92 11/16/16 00:05 94 Nasal Cannula 4.00 11/16/16 00:00 98.1 70 18 132/71 94 11/15/16 21:00 Nasal Cannula 4.00 11/15/16 20:49 90 Nasal Cannula 4.00 11/15/16 20:00 76 11/15/16 20:00 98.0 74 20 136/83 89 11/15/16 16:00 97.9 93 20 124/69 93 I/O 11/15/16 11/15/16 11/15/16 11/16/16 11/16/16 11/16/16 07:00 15:00 23:00 07:00 15:00 23:00 Intake Total 0 ml 2 ml 212 ml Balance 0 ml 2 ml 212 ml Intake Oral 0 ml 200 ml IV Total 2 ml 12 ml # Voids 0 1 2 # Bowel Movements 0 1 2 Result Diagram: 11/14/16 0538 11/14/16 0538 Imaging Last Impressions Chest X-Ray 11/14/16 0600 Signed Impressions: Service Date/Time: Monday, November 14, 2016 06:24 - CONCLUSION: No significant change. Jasper Springer MD CT Angiography 11/13/16 0000 Signed Impressions: Service Date/Time: October 02:43 - CONCLUSION: Marked passive atelectasis both lung bases. Excellent opacification of pulmonary arteries without evidence of pulmonary embolism. Small bilateral pleural effusions. Distended esophagus. Av Ramirez MD Procedures No procedures performed. Other Results Laboratory Tests Test 11/12/16 11/12/16 11/13/16 11/13/16 19:40 20:50 04:00 20:12 Prothrombin Time 9.9 SEC Prothromb Time International 0.9 RATIO Ratio Activated Partial 24.5 SEC Thromboplast Time Total Creatine Kinase 38 U/L B-Type Natriuretic Peptide 96 PG/ML Blood Gas Puncture Site LT RADIAL Blood Gas Patient Temperature 98.6 Blood Gas HCO3 39 mmol/L Blood Gas Base Excess 13.4 mmol/L Blood Gas Oxygen Saturation 94 % Arterial Blood pH 7.40 Arterial Blood Partial 64 mmHg Pressure CO2 Arterial Blood Partial 73 mmHG Pressure O2 Arterial Blood Oxygen Content 14.5 Vol % Arterial Blood 1.7 % Carboxyhemoglobin Arterial Blood Methemoglobin 0.7 % Blood Gas Hemoglobin 11.0 G/DL Oxygen Delivery Device BiPAP Blood Gas Ventilator Setting 16/6 Blood Gas Inspired Oxygen 60 % Nasal Screen MRSA (PCR) MRSA NOT DETECTED Troponin I 0.05 NG/ML Test 11/14/16 05:38 White Blood Count 7.0 TH/MM3 Red Blood Count 3.82 MIL/MM3 Hemoglobin 11.6 GM/DL Hematocrit 36.3 % Mean Corpuscular Volume 94.9 FL Mean Corpuscular Hemoglobin 30.4 PG Mean Corpuscular Hemoglobin 32.0 % Concent Red Cell Distribution Width 17.4 % Platelet Count 277 TH/MM3 Mean Platelet Volume 7.6 FL Neutrophils (%) (Auto) 63.0 % Lymphocytes (%) (Auto) 28.3 % Monocytes (%) (Auto) 8.3 % Eosinophils (%) (Auto) 0.0 % Basophils (%) (Auto) 0.4 % Neutrophils # (Auto) 4.4 TH/MM3 Lymphocytes # (Auto) 2.0 TH/MM3 Monocytes # (Auto) 0.6 TH/MM3 Eosinophils # (Auto) 0.0 TH/MM3 Basophils # (Auto) 0.0 TH/MM3 CBC Comment DIFF FINAL Differential Comment Sodium Level 137 MEQ/L Potassium Level 3.9 MEQ/L Chloride Level 95 MEQ/L Carbon Dioxide Level 38.9 MEQ/L Anion Gap 3 MEQ/L Blood Urea Nitrogen 23 MG/DL Creatinine 1.04 MG/DL Estimat Glomerular Filtration 51 ML/MIN Rate Random Glucose 85 MG/DL Calcium Level 9.3 MG/DL Phosphorus Level 3.7 MG/DL Magnesium Level 2.5 MG/DL Total Bilirubin 0.4 MG/DL Aspartate Amino Transf 12 U/L (AST/SGOT) Alanine Aminotransferase 19 U/L (ALT/SGPT) Alkaline Phosphatase 32 U/L Total Protein 5.9 GM/DL Albumin 2.8 GM/DL Objective Remarks GENERAL: Well-developed, no acute distress. SKIN: Warm and dry. HEAD: Atraumatic. Normocephalic. EYES: Pupils equal and round. No scleral icterus. No injection or drainage. ENT: No nasal bleeding or discharge. pain on her bilateral TMJ worse on the Right side. NECK: Trachea midline. No JVD. CARDIOVASCULAR: Regular rate and rhythm, sinus rhythm. RESPIRATORY: Decreased breath sounds bilateral, no wheezing, fine crackles on inspiration on both bases. GASTROINTESTINAL: Abdomen soft, non-tender, nondistended. MUSCULOSKELETAL: Extremities without clubbing, cyanosis. No Edema. NEUROLOGICAL: Awake and alert. No focal deficits. Medications and IVs Current Medications Medications (Trade) Dose Ordered Sig/Lili Route Start Time Stop Time Status Last Admin (Xanax) 0.25 mg Q8H PRN PO 11/13/16 01:15 11/14/16 15:20 (Norvasc) 5 mg DAILY PO 11/13/16 09:00 11/16/16 08:27 (Breo Ellipta 100-25 Inh) 1 puff HS INH 11/13/16 21:00 11/15/16 21:13 (Mucinex Er) 600 mg Q12HR PO 11/13/16 09:00 11/16/16 08:27 (Lopressor) 12.5 mg Q12HR PO 11/13/16 09:00 11/16/16 08:27 (Percocet 10-325 Mg) 1 tab Q6H PRN PO 11/13/16 01:15 11/16/16 04:45 (Aldactone) 12.5 mg DAILY PO 11/13/16 09:00 11/16/16 08:27 (Ferrous Sulfate) 325 mg TIDAC PO 11/13/16 08:00 11/16/16 12:33 (Pill Splitter) 1 ea UNSCH PRN OTHER 11/13/16 01:30 (NS Flush) 2 ml UNSCH PRN .XX 11/13/16 01:15 11/15/16 01:18 (NS Flush) 2 ml BID .XX 11/13/16 09:00 11/16/16 08:28 (Tylenol) 650 mg Q6H PRN PO 11/13/16 01:15 (Zofran Inj) 4 mg Q6H PRN IV 11/13/16 01:15 Miscellaneous Information 1 Q361D XX 11/13/16 01:15 11/13/16 01:15 (Chlorhexidine 2% Cloth) 3 pack Taper DAILY@04 TOP 11/13/16 04:00 11/09/17 03:59 11/13/16 04:00 (Chlorhexidine 2% Cloth) 3 pack UNSCH PRN TOP 11/13/16 01:15 (Lynn-Colace) 1 tab BID PO 11/13/16 09:00 11/16/16 08:27 (Milk Of Magnesia Liq) 30 ml Q12H PRN PO 11/13/16 01:15 (Senokot) 17.2 mg Q12H PRN PO 11/13/16 01:15 (Dulcolax Supp) 10 mg DAILY PRN RECTAL 11/13/16 01:15 (Lactulose Liq) 30 ml DAILY PRN PO 11/13/16 01:15 (Lactinex Pkt) 1 gm TID PO 11/13/16 09:00 11/16/16 12:33 (Xarelto) 20 mg DAILY PO 11/13/16 09:00 11/16/16 08:27 (D50w (Vial) Inj) 50 ml UNSCH PRN IV 11/13/16 02:15 (Glucagon Inj) 1 mg UNSCH PRN OTHER 11/13/16 02:15 (Protonix Inj) 40 mg Q24H IV PUSH 11/13/16 03:00 11/16/16 04:01 (Deltasone) 40 mg DAILY PO 11/13/16 09:00 11/16/16 08:28 (Miralax) 17 gm BID PO 11/13/16 09:00 11/16/16 08:27 (Neurontin) 600 mg BID PO 11/13/16 21:00 11/16/16 08:28 A/P Assessment and Plan 1. Chronic Pain syndrome/Anxiety disorder/Fibromyalgia on Gabapentin, Xanax and Oxycodone 2. Acute Hypoxemic Respiratory failure on chronic Hypoxemia and Hypercapnia/ Bronchiectasis End stage COPD, Breo 1 puff QHS, Mucolytic, Bronchodilators, Steroids. 3. Hypertension/Hyperlipidemia/Chronic Diastolic Heart Disease recent Echocardiogram 10/14/16 EF 60-65%, No regional wall motion abnormalities, Moderate LVH, Amlodipine, BB, Spironolactone, Diamox, on hold Lasix due to further worsening of metabolic alkalosis made decrease respiratory drive 4. Polycystic Kidney disease, Fuentes cath in place 5. History of DVT and PE/Iron deficiency anemia, previously on Xarelto, was re started on Lovenox for 3 days and then transfer to Xarelto that was started yesterday by Critical Care physician at 20 mg daily. 6. bilateral TMJ pain will need dental medicine evaluation she is not wearing her Prosthesis. PROPH: Xarelto will provide DVT prophylaxis as per above. Protonix 40 mg IV daily for stress ulcer prophylaxis. Activity up at [facility] PT evaluation performed patient was walking in the aisle. Discharge Planning awaiting final by senior regulatory affairs specialist for discharge. Galileo Gomez MD November 16, 2016 14:03
--- NOTE | 2016-11-16 19:51 | HHI.PR ---
Subjective Remarks 76 YOWF with COPD,DVT,PE has mild sob No CP no cough or sputum no Fever Breathing better " I am ready to go home" Objective Vital Signs Vital Signs Date Time Temp Pulse Resp B/P Pulse Ox O2 Delivery O2 Flow Rate FiO2 11/16/16 16:00 98.8 63 12 132/98 89 11/16/16 12:00 98.8 51 16 132/66 96 11/16/16 09:32 Nasal Cannula 4.00 50 11/16/16 08:27 96 Nasal Cannula 4.00 11/16/16 08:00 98.1 104 12 132/73 93 11/16/16 04:00 98.0 62 20 127/76 92 11/16/16 00:05 94 Nasal Cannula 4.00 11/16/16 00:00 98.1 70 18 132/71 94 11/15/16 21:00 Nasal Cannula 4.00 11/15/16 20:49 90 Nasal Cannula 4.00 11/15/16 20:00 76 11/15/16 20:00 98.0 74 20 136/83 89 I/O 11/15/16 11/15/16 11/15/16 11/16/16 11/16/16 11/16/16 07:00 15:00 23:00 07:00 15:00 23:00 Intake Total 0 ml 2 ml 212 ml 720 ml Balance 0 ml 2 ml 212 ml 720 ml Intake Oral 0 ml 200 ml 720 ml IV Total 2 ml 12 ml # Voids 0 1 2 2 # Bowel Movements 0 1 2 1 Result Diagram: 11/14/1638 11/14/16537 Objective Remarks GENERAL: MBMN WF, mild sob SKIN: Warm and dry. HEAD: Normocephalic. EYES: No scleral icterus. No injection or drainage. NECK: Supple, trachea midline. No JVD or lymphadenopathy. CARDIOVASCULAR: Regular rate and rhythm without murmurs, gallops, or rubs. RESPIRATORY: Breath sounds equal bilaterally. No accessory muscle use. GASTROINTESTINAL: Abdomen soft, non-tender, nondistended. MUSCULOSKELETAL: No cyanosis, or edema. BACK: Nontender without obvious deformity. No CVA tenderness. A/P Assessment and Plan Hypercapnoic and Hypoxic RF COPD HTN H/O DVT and PE Polycystic kidney diasease. PLAN: PO Prednisone Aerosol nebs Breo Ellipta once daily Cont xarelto Keep sat 88_92% OOB and ambulate DC Plans for home DW pt and Family Arvind Cummings MD November 16, 2016 19:51
[2016-11-16] MEDS: FLUTICASONE 100 MCG/VILANTEROL 25 MCG INHALER INH SCH (20:33)
[2016-11-17] VITALS (7 sets, daily range): BP systolic 149–167; BP diastolic 75–83; PULSE 60–68; RESP 18; TEMP 97.5–98.4; O2SAT 90–97
[2016-11-17] MEDS: RESP: ALBUTEROL 2.5 MG/IPRATROPIUM 0.5 MG NEB (SCH) INH ×3 (00:29→03:51)
[2016-11-17] MEDS: CHLORHEXIDINE GLUCONATE 2 % 1 PACK (2 CLOTHS) TOP SCH (03:30)
[2016-11-17] MEDS: PANTOPRAZOLE SODIUM 40 MG VIAL IV PUSH SCH (03:30)
[2016-11-17] MEDS: POLYETHYLENE GLYCOL 17 GM PKG PO SCH (09:00)
[2016-11-17] MEDS: DOCUSATE SODIUM 50 MG/SENNA 8.6 MG TAB PO SCH (09:00)
[2016-11-17] MEDS: RIVAROXABAN 20 MG TAB PO SCH (09:50)
[2016-11-17] MEDS: guaiFENesin E.R. 600 MG TAB PO SCH (09:50)
[2016-11-17] MEDS: LACTOBACILLUS ACIDOPHILUS 1 GM PACKET PO SCH (09:50)
[2016-11-17] MEDS: SPIRONOLACTONE 25 MG TAB PO SCH (09:51)
[2016-11-17] MEDS: amLODIPine BESYLATE 5 MG TAB PO SCH (09:51)
[2016-11-17] MEDS: GABAPENTIN 300 MG CAP PO SCH (09:51)
[2016-11-17] MEDS: METOPROLOL TARTRATE 25 MG TAB PO SCH (09:52)
[2016-11-17] MEDS: FERROUS SULFATE 325 MG (65 MG ELEMENTAL IRON) TAB PO SCH (09:52)
[2016-11-17] MEDS: predniSONE 20 MG TAB PO SCH (09:53)
[2016-11-17] MEDS: SODIUM CHLORIDE 0.9% FLUSH 10 ML FLUSH SCH (09:53)
[2016-11-17] MEDS: oxyCODONE/ACETAMINOPHEN 10 MG/325 MG TAB PO PRN (10:03)
[2016-11-17] MEDS ORDERED: OXYC1TAB36 PO (11:34)
[2016-11-17] MEDS ORDERED: XARE20TA PO (11:34)
[2016-11-17] MEDS ORDERED: PRED10 PO (11:34)
--- NOTE | 2016-11-17 11:37 | HHI.FF ---
Face to Face Verification Diagnosis: (1) Acute respiratory failure with hypoxia and hypercapnia (2) COPD exacerbation Physical Therapy Order: Evaluate and Treat, Improve ambulation, Strength and gait training Home Health Nursing Order: Medical education Signs/symptoms of disease process Medication education-adverse effect Nursing assessment with vital signs I have seen patient Marilu Diaz on 11/17/16. My clinical findings support the need for the requested home health care services because: Ltd mobility - disease progression Deconditioned w/ increased weakness I certify that my clinical findings support that this patient is homebound because: Unsafe to leave home unassisted Galileo Gomez MD November 17, 2016 11:37
--- NOTE | 2016-11-17 11:42 | HHI.PR ---
Subjective Remarks intake specialist Notes: 76-year-old female with past medical history of diastolic heart failure, COPD with 4 L oxygen requirement and chronic CO2 retention, hypertension, hypothyroidism, hyperlipidemia, prior history of DVT and pulmonary embolism previously on Xarelto. She was recently admitted to [facility] 10/10/16 through 10/24/16 due to acute hypoxemic and hypercapnic respiratory failure requiring BiPAP and high flow nasal cannula. She was treated with a combination of steroids, abx, diuretics, had negative VQ scan and eventually was discharge to [facility] and rehabilitation. She states that since discharge to rehabilitation that she feels that she has been gaining weight. She states that her daily weights have been increasing by nearly a pounds daily for the last 4-5 days. Is also noted significant swelling of her bilateral lower extremities. She has a cough which is productive of thick yellow sputum and she states that this is worse than her baseline. She denies chest pain, hemoptysis, fevers, chills, nausea, vomiting. She hasn't states that she has been intermittently having episodes of abrupt onset of shortness of breath and anxiety which she describes as "panic attacks" but the they are accompanied by hypoxemia. She had an episodes like this this evening and sats were in the 80s on 4 L nasal cannula so she requested evaluation in the hospital. Upon arrival to the ER her sats remained in the 80s and she was placed on BiPAP 12/6 with FiO2 to 60% to maintain sat at 90%. ABG demonstrated chronic hypercapneic respiraory failure with hypoxemia (pH 7.4/ PaCO2 64/PA O2 of 73/bicarbonate 39). She was given budesonide, albuterol x4, Lasix 20 mg IV, Solu-Medrol 60 mg IV and states she is feels much better than when she arrived. Her white count is normal. Chest x-ray demonstrates left lower lobe opacity (she also has h/o opacity and bronchiectasis in that location ). She states she feels significantly improved after these measures and desires to do a trial off of BiPAP. Sats are 90% on 6 L nasal cannula. Hospitalist Notes: 11/15: Continue respiratory therapy, will increase activity, asked for PT evaluation and treatment. she is on Prednisone 40 mg daily Discussed with Access Representative and nurse Miss Vital. 11/16; Seen in her bedroom in the presence of nurse Miss Servin and her Respiratory therapy specialist, receiving Bronchodilator therapy at this time No nausea, vomit or diarrhea, complaint of right earache. 11/17: Stable in her bedroom, breathing with nasal Cannula, no new complaint, discussed with nurse Miss Schmitt and following recommendations by practice specialist Doctor Emiliano for discharge. Objective Vital Signs Date Time Temp Pulse Resp B/P Pulse Ox O2 Delivery O2 Flow Rate FiO2 11/17/16 08:30 Nasal Cannula 4.00 11/17/16 08:00 98.4 68 18 160/75 91 11/17/16 04:00 97.5 65 18 149/83 93 11/17/16 03:52 90 Nasal Cannula 4.00 11/17/16 00:31 93 Nasal Cannula 4.00 11/17/16 00:00 98.3 65 18 167/83 92 11/16/16 20:53 91 Nasal Cannula 4.00 11/16/16 20:15 Nasal Cannula 4.00 11/16/16 20:00 98.5 68 18 125/60 92 11/16/16 20:00 65 11/16/16 16:00 98.8 63 12 132/98 89 11/16/16 12:00 98.8 51 16 132/66 96 I/O 11/16/16 11/16/16 11/16/16 11/17/16 11/17/16 11/17/16 07:00 15:00 23:00 07:00 15:00 23:00 Intake Total 212 ml 720 ml 200 ml 202 ml Balance 212 ml 720 ml 200 ml 202 ml Intake Oral 200 ml 720 ml 200 ml 200 ml IV Total 12 ml 2 ml # Voids 2 2 2 1 # Bowel Movements 2 1 1 2 Result Diagram: 11/14/16 0538 11/14/16 0538 Imaging Last Impressions Chest X-Ray 11/14/16 0600 Signed Impressions: Service Date/Time: Monday, November 14, 2016 06:24 - CONCLUSION: No significant change. Jasper Springer MD CT Angiography 11/13/16 0000 Signed Impressions: Service Date/Time: October 02:43 - CONCLUSION: Marked passive atelectasis both lung bases. Excellent opacification of pulmonary arteries without evidence of pulmonary embolism. Small bilateral pleural effusions. Distended esophagus. vA Ramirez MD Procedures No procedures performed. Other Results Laboratory Tests Test 11/13/16 11/13/16 11/14/16 04:00 20:12 05:38 Nasal Screen MRSA (PCR) MRSA NOT DETECTED Troponin I 0.05 NG/ML White Blood Count 7.0 TH/MM3 Red Blood Count 3.82 MIL/MM3 Hemoglobin 11.6 GM/DL Hematocrit 36.3 % Mean Corpuscular Volume 94.9 FL Mean Corpuscular Hemoglobin 30.4 PG Mean Corpuscular Hemoglobin 32.0 % Concent Red Cell Distribution Width 17.4 % Platelet Count 277 TH/MM3 Mean Platelet Volume 7.6 FL Neutrophils (%) (Auto) 63.0 % Lymphocytes (%) (Auto) 28.3 % Monocytes (%) (Auto) 8.3 % Eosinophils (%) (Auto) 0.0 % Basophils (%) (Auto) 0.4 % Neutrophils # (Auto) 4.4 TH/MM3 Lymphocytes # (Auto) 2.0 TH/MM3 Monocytes # (Auto) 0.6 TH/MM3 Eosinophils # (Auto) 0.0 TH/MM3 Basophils # (Auto) 0.0 TH/MM3 CBC Comment DIFF FINAL Differential Comment Sodium Level 137 MEQ/L Potassium Level 3.9 MEQ/L Chloride Level 95 MEQ/L Carbon Dioxide Level 38.9 MEQ/L Anion Gap 3 MEQ/L Blood Urea Nitrogen 23 MG/DL Creatinine 1.04 MG/DL Estimat Glomerular Filtration 51 ML/MIN Rate Random Glucose 85 MG/DL Calcium Level 9.3 MG/DL Phosphorus Level 3.7 MG/DL Magnesium Level 2.5 MG/DL Total Bilirubin 0.4 MG/DL Aspartate Amino Transf 12 U/L (AST/SGOT) Alanine Aminotransferase 19 U/L (ALT/SGPT) Alkaline Phosphatase 32 U/L Total Protein 5.9 GM/DL Albumin 2.8 GM/DL Objective Remarks GENERAL: Well-developed, no acute distress. SKIN: Warm and dry. HEAD: Atraumatic. Normocephalic. EYES: Pupils equal and round. No scleral icterus. No injection or drainage. ENT: No nasal bleeding or discharge. pain on her bilateral TMJ worse on the Right side. NECK: Trachea midline. No JVD. CARDIOVASCULAR: Regular rate and rhythm, sinus rhythm. RESPIRATORY: Decreased breath sounds bilateral, no wheezing, fine crackles on inspiration on both bases. GASTROINTESTINAL: Abdomen soft, non-tender, nondistended. MUSCULOSKELETAL: Extremities without clubbing, cyanosis. No Edema. NEUROLOGICAL: Awake and alert. No focal deficits. Medications and IVs Current Medications Medications (Trade) Dose Ordered Sig/Lili Route Start Time Stop Time Status Last Admin (Xanax) 0.25 mg Q8H PRN PO 11/13/16 01:15 11/14/16 15:20 (Norvasc) 5 mg DAILY PO 11/13/16 09:00 11/17/16 09:51 (Breo Ellipta 100-25 Inh) 1 puff HS INH 11/13/16 21:00 11/16/16 20:33 (Mucinex Er) 600 mg Q12HR PO 11/13/16 09:00 11/17/16 09:50 (Lopressor) 12.5 mg Q12HR PO 11/13/16 09:00 11/17/16 09:52 (Percocet 10-325 Mg) 1 tab Q6H PRN PO 11/13/16 01:15 11/17/16 10:03 (Aldactone) 12.5 mg DAILY PO 11/13/16 09:00 11/17/16 09:51 (Ferrous Sulfate) 325 mg TIDAC PO 11/13/16 08:00 11/17/16 09:52 (Pill Splitter) 1 ea UNSCH PRN OTHER 11/13/16 01:30 (NS Flush) 2 ml UNSCH PRN .XX 11/13/16 01:15 11/15/16 01:18 (NS Flush) 2 ml BID .XX 11/13/16 09:00 11/17/16 09:53 (Tylenol) 650 mg Q6H PRN PO 11/13/16 01:15 (Zofran Inj) 4 mg Q6H PRN IV 11/13/16 01:15 Miscellaneous Information 1 Q361D XX 11/13/16 01:15 11/13/16 01:15 (Chlorhexidine 2% Cloth) 3 pack Taper DAILY@04 TOP 11/13/16 04:00 11/09/17 03:59 11/13/16 04:00 (Chlorhexidine 2% Cloth) 3 pack UNSCH PRN TOP 11/13/16 01:15 (Lynn-Colace) 1 tab BID PO 11/13/16 09:00 11/16/16 20:32 (Milk Of Magnesia Liq) 30 ml Q12H PRN PO 11/13/16 01:15 (Senokot) 17.2 mg Q12H PRN PO 11/13/16 01:15 (Dulcolax Supp) 10 mg DAILY PRN RECTAL 11/13/16 01:15 (Lactulose Liq) 30 ml DAILY PRN PO 11/13/16 01:15 (Lactinex Pkt) 1 gm TID PO 11/13/16 09:00 11/17/16 09:50 (Xarelto) 20 mg DAILY PO 11/13/16 09:00 11/17/16 09:50 (D50w (Vial) Inj) 50 ml UNSCH PRN IV 11/13/16 02:15 (Glucagon Inj) 1 mg UNSCH PRN OTHER 11/13/16 02:15 (Protonix Inj) 40 mg Q24H IV PUSH 11/13/16 03:00 11/17/16 03:30 (Deltasone) 40 mg DAILY PO 11/13/16 09:00 11/17/16 09:53 (Miralax) 17 gm BID PO 11/13/16 09:00 11/16/16 08:27 (Neurontin) 600 mg BID PO 11/13/16 21:00 11/17/16 09:51 A/P Assessment and Plan 1. Chronic Pain syndrome/Anxiety disorder/Fibromyalgia on Gabapentin, Xanax and Oxycodone 2. Acute Hypoxemic Respiratory failure on chronic Hypoxemia and Hypercapnia/ Bronchiectasis End stage COPD, Breo 1 puff QHS, Mucolytic, Bronchodilators, Steroids. Okay to discharge from practice specialist standpoint. 3. Hypertension/Hyperlipidemia/Chronic Diastolic Heart Disease recent Echocardiogram 10/14/16 EF 60-65%, No regional wall motion abnormalities, Moderate LVH, Amlodipine, BB, Spironolactone, Diamox, on hold Lasix due to further worsening of metabolic alkalosis made decrease respiratory drive 4. Polycystic Kidney disease, Fuentes cath in place 5. History of DVT and PE/Iron deficiency anemia, previously on Xarelto, was re started on Lovenox for 3 days and then transfer to Xarelto that was started yesterday by Critical Care physician at 20 mg daily. 6. bilateral TMJ pain will need dental medicine evaluation she is not wearing her Prosthesis. PROPH: Xarelto will provide DVT prophylaxis as per above. Protonix 40 mg IV daily for stress ulcer prophylaxis. Activity up at [facility] PT evaluation she will continue with PT at home. Discharge Planning Discharge Home on [facility] for PT and skilled nurse Poor intermediate frame tender prognosis and high risk for continuous readmissions. Galileo Gomez MD November 17, 2016 11:42
--- NOTE | 2016-11-17 11:46 | HHI.DS ---
Discharge Summary Admission Date November 12, 2016 at 21:39 Discharge Date: November 17, 2016 Admitting Diagnosis Hypoxic respiratory failure (1) COPD exacerbation ICD Code: J44.1 Diagnosis: Principal (2) Acute respiratory failure with hypoxia and hypercapnia ICD Code: J96.01 Diagnosis: Principal Procedures BiPAP in Intensive Care unit. Brief History - From Admission 76-year-old female with past medical history of diastolic heart failure, COPD with 4 L oxygen requirement and chronic CO2 retention, hypertension, hypothyroidism, hyperlipidemia, prior history of DVT and pulmonary embolism previously on Xarelto. She was recently admitted to [facility] 10/10/16 through 10/24/16 due to acute hypoxemic and hypercapnic respiratory failure requiring BiPAP and high flow nasal cannula. She was treated with a combination of steroids, abx, diuretics, had negative VQ scan and eventually was discharge to [facility] and rehabilitation. She states that since discharge to rehabilitation that she feels that she has been gaining weight. She states that her daily weights have been increasing by nearly a pounds daily for the last 4-5 days. Is also noted significant swelling of her bilateral lower extremities. She has a cough which is productive of thick yellow sputum and she states that this is worse than her baseline. She denies chest pain, hemoptysis, fevers, chills, nausea, vomiting. She hasn't states that she has been intermittently having episodes of abrupt onset of shortness of breath and anxiety which she describes as "panic attacks" but the they are accompanied by hypoxemia. She had an episodes like this this evening and sats were in the 80s on 4 L nasal cannula so she requested evaluation in the hospital. Upon arrival to the ER her sats remained in the 80s and she was placed on BiPAP 12/6 with FiO2 to 60% to maintain sat at 90%. ABG demonstrated chronic hypercapneic respiraory failure with hypoxemia (pH 7.4/ PaCO2 64/PA O2 of 73/bicarbonate 39). She was given budesonide, albuterol x4, Lasix 20 mg IV, Solu-Medrol 60 mg IV and states she is feels much better than when she arrived. Her white count is normal. Chest x-ray demonstrates left lower lobe opacity (she also has h/o opacity and bronchiectasis in that location ). She states she feels significantly improved after these measures and desires to do a trial off of BiPAP. Sats are 90% on 6 L nasal cannula. CBC/BMP: 11/14/16 0538 11/14/16 0538 Imaging Last Impressions Chest X-Ray 11/14/16 0600 Signed Impressions: Service Date/Time: Monday, November 14, 2016 06:24 - CONCLUSION: No significant change. Jasper Springer MD CT Angiography 11/13/16 0000 Signed Impressions: Service Date/Time: October 02:43 - CONCLUSION: Marked passive atelectasis both lung bases. Excellent opacification of pulmonary arteries without evidence of pulmonary embolism. Small bilateral pleural effusions. Distended esophagus. Av Ramirez MD PE at Discharge GENERAL: Well-developed, no acute distress. SKIN: Warm and dry. HEAD: Atraumatic. Normocephalic. EYES: Pupils equal and round. No scleral icterus. No injection or drainage. ENT: No nasal bleeding or discharge. pain on her bilateral TMJ worse on the Right side. NECK: Trachea midline. No JVD. CARDIOVASCULAR: Regular rate and rhythm, sinus rhythm. RESPIRATORY: Decreased breath sounds bilateral, no wheezing, fine crackles on inspiration on both bases. GASTROINTESTINAL: Abdomen soft, non-tender, nondistended. MUSCULOSKELETAL: Extremities without clubbing, cyanosis. No Edema. NEUROLOGICAL: Awake and alert. No focal deficits. Hospital Course agricultural extension specialist Notes: 76-year-old female with past medical history of diastolic heart failure, COPD with 4 L oxygen requirement and chronic CO2 retention, hypertension, hypothyroidism, hyperlipidemia, prior history of DVT and pulmonary embolism previously on Xarelto. She was recently admitted to [facility] 10/10/16 through 10/24/16 due to acute hypoxemic and hypercapnic respiratory failure requiring BiPAP and high flow nasal cannula. She was treated with a combination of steroids, abx, diuretics, had negative VQ scan and eventually was discharge to [facility] and rehabilitation. She states that since discharge to rehabilitation that she feels that she has been gaining weight. She states that her daily weights have been increasing by nearly a pounds daily for the last 4-5 days. Is also noted significant swelling of her bilateral lower extremities. She has a cough which is productive of thick yellow sputum and she states that this is worse than her baseline. She denies chest pain, hemoptysis, fevers, chills, nausea, vomiting. She hasn't states that she has been intermittently having episodes of abrupt onset of shortness of breath and anxiety which she describes as "panic attacks" but the they are accompanied by hypoxemia. She had an episodes like this this evening and sats were in the 80s on 4 L nasal cannula so she requested evaluation in the hospital. Upon arrival to the ER her sats remained in the 80s and she was placed on BiPAP 05/27 with FiO2 to 60% to maintain sat at 90%. ABG demonstrated chronic hypercapneic respiraory failure with hypoxemia (pH 7.4/ PaCO2 64/PA O2 of 73/bicarbonate 39). She was given budesonide, albuterol x4, Lasix 20 mg IV, Solu-Medrol 60 mg IV and states she is feels much better than when she arrived. Her white count is normal. Chest x-ray demonstrates left lower lobe opacity (she also has h/o opacity and bronchiectasis in that location ). She states she feels significantly improved after these measures and desires to do a trial off of BiPAP. Sats are 90% on 6 L nasal cannula. Hospitalist Notes: 11/15: Continue respiratory therapy, will increase activity, asked for PT evaluation and treatment. she is on Prednisone 40 mg daily Discussed with General Internist and nurse Miss Vital. 11/16; Seen in her bedroom in the presence of nurse Miss Servin and her Respiratory therapy specialist, receiving Bronchodilator therapy at this time No nausea, vomit or diarrhea, complaint of right earache. 11/17: Stable in her bedroom, breathing with nasal Cannula, no new complaint, discussed with nurse Miss Schmitt and following recommendations by offender job retention specialist Doctor Emiliano for discharge. Assessment and Plan 1. Chronic Pain syndrome/Anxiety disorder/Fibromyalgia on Gabapentin, Xanax and Oxycodone 2. Acute Hypoxemic Respiratory failure on chronic Hypoxemia and Hypercapnia/ Bronchiectasis End stage COPD, Breo 1 puff QHS, Mucolytic, Bronchodilators, Steroids. Okay to discharge from offender job retention specialist standpoint. 3. Hypertension/Hyperlipidemia/Chronic Diastolic Heart Disease recent Echocardiogram 10/14/16 EF 60-65%, No regional wall motion abnormalities, Moderate LVH, Amlodipine, BB, Spironolactone, Diamox, on hold Lasix due to further worsening of metabolic alkalosis made decrease respiratory drive 4. Polycystic Kidney disease, Fuentes cath in place 5. History of DVT and PE/Iron deficiency anemia, previously on Xarelto, was re started on Lovenox for 3 days and then transfer to Xarelto that was started yesterday by Critical Care physician at 20 mg daily. 6. bilateral TMJ pain will need dental medicine evaluation she is not wearing her Prosthesis. PROPH: Xarelto will provide DVT prophylaxis as per above. Protonix 40 mg IV daily for stress ulcer prophylaxis. Activity up at [facility] PT evaluation she will continue with PT at home. Discharge Planning Discharge Home on [facility] for PT and skilled nurse Poor desktop manager prognosis and high risk for continuous readmissions. Pt Condition on Discharge: Stable Discharge Disposition: Disch w/ Home Health Serv Discharge Time: > 30 minutes Discharge Instructions DIET: Follow Instructions for: Heart Healthy Diet Activities you can perform: Regular-No Restrictions Galileo Gomez MD November 17, 2016 11:45
--- NOTE | 2016-11-17 12:06 | HHI.PR ---
Subjective Remarks 76 YOWF with COPD,DVT,PE has mild sob No CP no cough or sputum no Fever Breathing better No new complaint Objective Vital Signs Vital Signs Date Time Temp Pulse Resp B/P Pulse Ox O2 Delivery O2 Flow Rate FiO2 11/17/16 08:30 Nasal Cannula 4.00 11/17/16 08:03 60 11/17/16 08:00 98.4 68 18 160/75 91 11/17/16 04:00 97.5 65 18 149/83 93 11/17/16 03:52 90 Nasal Cannula 4.00 11/17/16 00:31 93 Nasal Cannula 4.00 11/17/16 00:00 98.3 65 18 167/83 92 11/16/16 20:53 91 Nasal Cannula 4.00 11/16/16 20:15 Nasal Cannula 4.00 11/16/16 20:00 98.5 68 18 125/60 92 11/16/16 20:00 65 11/16/16 16:00 98.8 63 12 132/98 89 I/O 11/16/16 11/16/16 11/16/16 11/17/16 11/17/16 11/17/16 07:00 15:00 23:00 07:00 15:00 23:00 Intake Total 212 ml 720 ml 200 ml 202 ml Balance 212 ml 720 ml 200 ml 202 ml Intake Oral 200 ml 720 ml 200 ml 200 ml IV Total 12 ml 2 ml # Voids 2 2 2 1 # Bowel Movements 2 1 1 2 Result Diagram: 11/14/1638 11/14/1638 Objective Remarks GENERAL: MBMN WF, mild sob SKIN: Warm and dry. HEAD: Normocephalic. EYES: No scleral icterus. No injection or drainage. NECK: Supple, trachea midline. No JVD or lymphadenopathy. CARDIOVASCULAR: Regular rate and rhythm without murmurs, gallops, or rubs. RESPIRATORY: Breath sounds equal bilaterally. No accessory muscle use. GASTROINTESTINAL: Abdomen soft, non-tender, nondistended. MUSCULOSKELETAL: No cyanosis, or edema. BACK: Nontender without obvious deformity. No CVA tenderness. A/P Assessment and Plan Hypercapnoic and Hypoxic RF COPD HTN H/O DVT and PE Polycystic kidney diasease. PLAN: PO Prednisone Aerosol nebs Breo Ellipta once daily Cont xarelto Keep sat 88_92% OOB and ambulate DC Plans for home Will FU in office 2 weeks Arvind Cummings MD November 17, 2016 12:05
== END 2016-11-17 14:44 | disposition home or self-care (01) | DRG 189 ==
LOC: NEPE 18:25 → NEDA 21:39 → N03A 11-13 02:52 → N04B 11-13 15:17
PROVIDERS: ADMIT Internal Medicine; ATTEND Internal Medicine
PROC: 5A09457 Assistance with Respiratory Ventilation, 24-96 Consecutive Hours, Continuous Positive Airway Pressure (ICD-10-PCS; principal; 2016-11-12)
DX: J96.01 Acute respiratory failure with hypoxia (principal); E87.2 Acidosis; I11.0 Hypertensive heart disease with heart failure; I50.32 Chronic diastolic (congestive) heart failure; Q61.3 Polycystic kidney, unspecified; J44.1 Chronic obstructive pulmonary disease with (acute) exacerbation; D64.9 Anemia, unspecified; J96.02 Acute respiratory failure with hypercapnia; E03.9 Hypothyroidism, unspecified; E78.5 Hyperlipidemia, unspecified; G89.4 Chronic pain syndrome; M26.623 Arthralgia of bilateral temporomandibular joint; M54.30 Sciatica, unspecified side; M79.7 Fibromyalgia; F41.0 Panic disorder [episodic paroxysmal anxiety]; H91.90 Unspecified hearing loss, unspecified ear; Z79.01 Long term (current) use of anticoagulants; Z86.711 Personal history of pulmonary embolism; Z87.891 Personal history of nicotine dependence; Z99.81 Dependence on supplemental oxygen
CPT/HCPCS: 36600; 51702; 71010; 71275; 80053; 82550; 82805; 83735; 83880; 84100; 84484; 85025; 85610; 85730; 87040; 87641; 93005; 94002; 94003; 94640; 94664; 96374; C9113; J1120; J1940; J2930; J7512; J7613; J7626; Q9967

== ENCOUNTER 2016-12-01 19:34 | Inpatient (IN) | payer OTHER, MEDICARE ==
[~2016-12-01] VITALS: Ht 165.1 cm; Wt 58.6 kg
[~2016-12-01 19:34] MED LIST changes: +ALBU0.08 NEB; -ALBU1.25 NEB; +DIFFCHW PO; -FERR325T PO; +FERR325T2 PO; +FLUT1INH INH; +GUAI1TAB15 PO; -LEVA500T PO; -MEDR4PAK PO; +MILKSUS PO; +MIRA3350 PO; -MIRA33504 PO; -MUCI600T PO; -SYMB160A INH; -XARE10TA PO; +XARE20TA PO
[2016-12-01 19:49] VITALS: BP 85/46; PULSE 87; RESP 30; O2SAT 80
[2016-12-01 19:53] VITALS: RESP 30; O2SAT 80
--- NOTE | 2016-12-01 19:53 | PD ---
HPI Chief Complaint: Respiratory Distress Time Seen by Provider: 19:41 Travel History International Travel<30 days: No Contact w/Intl Traveler<30days: No History of Present Illness HPI 76 yo F arrives by EMS 2/2 AMS and sob at home. Initially call for AMS evidently throughout the course of the day with family noting SOB at time of EMS call. Normally pt is awake with eyes open and answers questions right away. EMS reports pt received a muscle relaxer just prior to their arrival. Pt received albuterol x 2 en route with [facility] Past Medical History Hx Anticoagulant Therapy: Yes (xarelto completed on the November 07) Arthritis: Yes Anxiety: No Depression: No Heart Rhythm Problems: No Cancer: Yes Cardiovascular Problems: Yes High Cholesterol: Yes Chemotherapy: No Congestive Heart Failure: Yes COPD: Yes (O2 dep) Coronary Artery Disease: No Diabetes: No Diminished Hearing: Yes Deep Vein Thrombosis: Yes (x2 ) Fibromyalgia: Yes Gastrointestinal Disorders: No Genitourinary: Yes Headaches: Yes Hypertension: Yes Immune Disorder: No Implanted Vascular Access Dvce: No Musculoskeletal: Yes Neurologic: Yes Psychiatric: No Reproductive: No Respiratory: Yes (HOME O2/OXYGEN DEPENDENT) Radiation Therapy: Yes (thyroid) Thyroid Disease: Yes Menopausal: Yes Tubal Ligation: Yes Past Surgical History Ear Surgery: Yes (INPLANT RT/ CATARACT) Eye Surgery: Yes (CATARACT) Gynecologic Surgery: Yes (TUBAL LIGATION) Tonsillectomy: Yes Other Surgery: Yes Social History Alcohol Use: No Tobacco Use: No (quit 2014 smoked 1 ppd cigs for 57 yrs) Substance Use: No Allergies-Medications (Allergen,Severity, Reaction): Coded Allergies: Azithromycin (Verified Allergy, Severe, STOMACH CRAMPS, 10/10/16) Penicillin (Verified Allergy, Severe, 10/10/16) Reported Meds & Prescriptions Reported Meds & Active Scripts Active Prednisone 10 Mg Tab 10 Mg PO DAILY TAKE THREE TABLETS BY MOUTH FOR FOUR DAYS THEN TAKE TWO TABLETS BY MOUTH DAILY FOR FOUR DAYS THEN CONTINUE ONE TABLET DAILY. Xarelto (Rivaroxaban) 20 Mg Tab 20 Mg PO DAILY Oxycodone-Acetaminophen 10-325 mg Tab 1 Tab PO Q6H PRN DO NOT USE THIS MEDICINE IF YOU WILL DRIVE A CAR OR USE A MACHINE, ONLY USE IT WHEN RESTING AT HOME. Metoprolol Tartrate 25 Mg Tab 12.5 Mg PO Q12HR HOLD FOR SYSTOLIC BLOOD PRESSURE IN 110 MM HG OR BELOW OR HEART RATE IN 60 OR BELOW. Norvasc (Amlodipine Besylate) 5 Mg Tab 5 Mg PO DAILY Duoneb (Ipratropium-Albuterol Neb) 0.5-2.5 Mg/3 Ml Neb 1 Ampule NEB Q4HR NEB 30 Days Reported Milk of Magnesia Liq (Magnesium Hydroxide) 400 Mg/5 Ml Susp 30 Ml PO DAILY PRN Albuterol Neb (Albuterol Sulfate) 2.5 Mg/3 Ml Neb 2.5 Mg NEB Q2HR NEB PRN While awake Ferrous Sulfate DR (Ferrous Sulfate) 325 Mg Tabdr 325 Mg PO TIDAC Eq Mucus ER (Guaifenesin) 600 Mg Tab 600 Mg PO Q12HR Diff-Stat (Probiotic Product) 1 Cap Cap 1 Cap PO BID Miralax Powder (Polyethylene Glycol 3350 Powder) 1 Pow Pow 17 Gm PO HS Breo Ellipta Inh (Fluticasone/Vilanterol) 100-25 Mcg/Act Inh 1 Puff INH HS Use daily at the same time. Xopenex Neb (Levalbuterol HCl) 1.25 Mg/3 Ml Neb 1.25 Mg NEB Q2HR NEB PRN Xanax (Alprazolam) 0.25 Mg Tab 0.25 Mg PO Q8H PRN Spironolactone 25 Mg Tab 12.5 Mg PO DAILY Flexeril (Cyclobenzaprine HCl) 5 Mg Tab 5 Mg PO TID Gabapentin 600 Mg Tab 600 Mg PO TID Review of Systems Except as stated in HPI: all other systems reviewed are Neg General / Constitutional: No: Fever Respiratory: Positive: Shortness of Breath Neurologic: Positive: Change in Mentation Physical Exam Narrative GENERAL: 76-year-old female well-nourished well-developed, asleep and round, initial GCS 9 (eyes 2, verbal 2, motor 5) SKIN: Warm and dry. HEAD: Atraumatic. Normocephalic. EYES: Pupils equal and round. No scleral icterus. No injection or drainage. Pupils are pinpoint ENT: No nasal bleeding or discharge. Mucous membranes pink and moist. NECK: Trachea midline. No JVD. CARDIOVASCULAR: Regular rate and rhythm. RESPIRATORY: Wheezing present bilaterally. No tachypnea. Decreased breath sound bases. GASTROINTESTINAL: Abdomen soft, non-tender, nondistended. Hepatic and splenic margins not palpable. MUSCULOSKELETAL: Extremities without clubbing, cyanosis, or edema. No obvious deformities. NEUROLOGICAL: GCS 9. No focal cranial nerve deficit. After Narcan patient's GCS improved to 15. PSYCHIATRIC: Appropriate mood and affect; insight and judgment normal. Data Data Last Documented VS Vital Signs Date Time Temp Pulse Resp B/P Pulse Ox O2 Delivery O2 Flow Rate FiO2 12/01/16 22:15 97.5 98 24 209/96 96 BiPAP 6 12/01/16 20:33 100 temp 97.7 Orders Complete Blood Count With Diff (12/01/16 19:48) Basic Metabolic Panel (Bmp) (12/01/16 19:48) B-Type Natriuretic Peptide (12/01/16 19:48) Act Partial Throm Time (Ptt) (12/01/16 19:48) Prothrombin Time / Inr (Pt) (12/01/16 19:48) Magnesium (Mg) (12/01/16 19:48) Troponin I (12/01/16 19:48) Urinalysis - C+S If Indicated (12/01/16 19:48) Iv Access Insert/Monitor (12/01/16 19:48) Electrocardiogram (12/01/16 19:48) Ecg Monitoring (12/01/16 19:48) Oximetry (12/01/16 19:48) Oxygen Administration (12/01/16 19:48) Chest, Single Ap (12/01/16 19:48) Cath For Specimen (12/01/16 19:48) Sodium Chloride 0.9% Flush (Ns Flush) (12/01/16 20:00) Methylprednisolone So Succ Inj (Solumedr (12/01/16 20:00) Albuterol-Ipratropium Neb (Duoneb Neb) (12/01/16 20:00) Resp Bipap / Cpap Non Invas Vt (12/01/16 19:48) Arterial Blood Gas (Abg) (12/01/16 ) Naloxone Inj (Narcan Inj) (12/01/16 20:00) Sodium Chlor 0.9% 1000 Ml Inj (Ns 1000 M (12/01/16 20:30) Cefepime Inj (Maxipime Inj) (12/01/16 20:30) Arterial Blood Gas (Abg) (12/01/16 ) Blood Culture (12/01/16 21:46) Sodium Chlor 0.9% 1000 Ml Inj (Ns 1000 M (12/01/16 22:00) Naloxone Inj (Narcan Inj) (12/01/16 22:00) Vancomycin Inj (Vancomycin Inj) (12/01/16 22:00) Ct Brain W/O Iv Contrast(Rout) (12/01/16 21:58) Drug Screen, Random Urine (12/01/16 21:59) Lorazepam Inj (Ativan Inj) (12/01/16 22:30) Hepatic Functional Panel (12/01/16 20:00) Admit Order (Ed Use Only) (12/01/16 23:59) Labs Laboratory Tests Test 12/01/16 12/01/16 12/01/16 12/01/16 20:00 20:29 21:47 22:30 White Blood Count 13.5 TH/MM3 Red Blood Count 3.38 MIL/MM3 Hemoglobin 10.4 GM/DL Hematocrit 33.2 % Mean Corpuscular Volume 98.2 FL Mean Corpuscular Hemoglobin 30.7 PG Mean Corpuscular Hemoglobin 31.2 % Concent Red Cell Distribution Width 17.4 % Platelet Count 234 TH/MM3 Mean Platelet Volume 8.8 FL Neutrophils (%) (Auto) 87.3 % Lymphocytes (%) (Auto) 11.0 % Monocytes (%) (Auto) 1.4 % Eosinophils (%) (Auto) 0.1 % Basophils (%) (Auto) 0.2 % Neutrophils # (Auto) 11.8 TH/MM3 Lymphocytes # (Auto) 1.5 TH/MM3 Monocytes # (Auto) 0.2 TH/MM3 Eosinophils # (Auto) 0.0 TH/MM3 Basophils # (Auto) 0.0 TH/MM3 CBC Comment DIFF FINAL Differential Comment Prothrombin Time 10.0 SEC Prothromb Time International 0.9 RATIO Ratio Activated Partial 23.3 SEC Thromboplast Time Urine Color YELLOW Urine Turbidity CLEAR Urine pH 5.0 Urine Specific [place] 1.019 Urine Protein TRACE mg/dL Urine Glucose (UA) NEG mg/dL Urine Ketones NEG mg/dL Urine Occult Blood NEG Urine Nitrite NEG Urine Bilirubin NEG Urine Urobilinogen LESS THAN 2.0 MG/DL Urine Leukocyte Esterase NEG Urine RBC LESS THAN 1 /hpf Urine WBC 1 /hpf Urine Squamous Epithelial <1 /hpf Cells Urine Mucus FEW /lpf Microscopic Urinalysis Comment CULT NOT INDICATED B-Type Natriuretic Peptide 82 PG/ML Urine Opiates Screen NEG Urine Barbiturates Screen NEG Urine Amphetamines Screen NEG Urine Benzodiazepines Screen NEG Urine Cocaine Screen NEG Urine Cannabinoids Screen NEG Blood Gas Puncture Site LT RADIAL LT RADIAL Blood Gas Patient Temperature 98.6 98.6 Blood Gas HCO3 41 mmol/L 36 mmol/L Blood Gas Base Excess 14.0 mmol/L 9.6 mmol/L Blood Gas Oxygen Saturation 86 % 96 % Arterial Blood pH 7.30 7.30 Arterial Blood Partial 86 mmHg 76 mmHg Pressure CO2 Arterial Blood Partial 52 mmHG 92 mmHG Pressure O2 Arterial Blood Oxygen Content 16.5 Vol % 13.1 Vol % Arterial Blood 1.7 % 1.7 % Carboxyhemoglobin Arterial Blood Methemoglobin 0.7 % 0.7 % Blood Gas Hemoglobin 13.7 G/DL 9.7 G/DL Oxygen Delivery Device NONE BiPAP REBREATHER Blood Gas Liter Flow 15 L/M Blood Gas Inspired Oxygen 100 % 100 % Blood Gas Ventilator Setting [id number] Sodium Level 143 MEQ/L Potassium Level 5.8 MEQ/L Chloride Level 102 MEQ/L Carbon Dioxide Level 35.4 MEQ/L Anion Gap 6 MEQ/L Blood Urea Nitrogen 35 MG/DL Creatinine 1.06 MG/DL Estimat Glomerular Filtration 50 ML/MIN Rate Random Glucose 171 MG/DL Calcium Level 8.4 MG/DL Magnesium Level 2.4 MG/DL Total Bilirubin 0.4 MG/DL Direct Bilirubin 0.1 MG/DL Indirect Bilirubin 0.3 MG/DL Aspartate Amino Transf 74 U/L (AST/SGOT) Alanine Aminotransferase 75 U/L (ALT/SGPT) Alkaline Phosphatase 30 U/L Troponin I 0.02 NG/ML Total Protein 5.8 GM/DL Albumin 2.6 GM/DL [facility] Medical Decision Making Medical Screen Exam Complete: Yes Emergency Medical Condition: Yes Medical Record Reviewed: Yes Differential Diagnosis PNA, COPD, renal failure, hypercarbic AMS, hypoxia, pleural effusion Narrative Course CBC & BMP Diagram 12/01/16 20:00 12/01/16 22:30 AST 74 ALT 75 Tn 0.02 UA no UTI Tox byrd-negative ABG 7.30/89/41 BE 14 pO2 52 on NRB ABG2 7.30/76/36 BE 9.6 pO2 92 on BIPAP 12/6 100% ABG3 7.19/97/35 BE 7.4 pO2 78 on BIPAP 15/6 100% Last 24 hours Impressions Chest X-Ray 12/02/16 0000 Signed Impressions: Service Date/Time: Friday, December 02, 2016 01:35 - CONCLUSION: Moderate CHF. Bibasilar opacities are present may be due to a combination of consolidation and or pleural effusion. Anuradha Anthony MD Chest X-Ray 12/01/16 1948 Signed Impressions: Service Date/Time: Thursday, December 01, 2016 20:10 - CONCLUSION: Right greater than left basilar consolidation and effusions. Jasper Springer MD Cefepime/Vanco started. Blood cultures drawn. The patient had a brisk response to Narcan with a GCS improving from about 9 to 15. After some time the patient became quite sleepy and repeat ABG revealed a PCO2 of 97 and the patient was intubated by the undersigned. Case discussed with Dr. Dia for CC service. Critical Care Narrative Aggregate critical care time was 35 minutes. Time to perform other separately billable procedures was not included in the critical care time. My time did not include minutes spent treating any other patients simultaneously or on activities that did not directly contribute to the patient's treatment. The services I provided to this patient were to treat and/or prevent clinically significant deterioration that could result in: Cardiopulmonary arrest, hypoxia I provided critical care services requiring my management, as noted below: Chart data review, documentation time, medication orders and management, vital sign assessments/reviewing monitor data, ordering and reviewing lab tests, ordering and interpreting/reviewing x-rays and diagnostic studies, care of the patient and discussion of the patient with the admitting physicians. Procedures Procedure Narrative After the risks and benefits were discussed the following procedure was performed: INTUBATION: The patient was put in optimal position for the procedure. . The patient was intubated with a 7-5 cuffed endotracheal tube. Tube placement was confirmed by visualization of the tube and balloon passing through the cords, capnometry and subsequent chest x-ray. Breath sounds were equal and well aerated bilaterally postintubation. No breath sounds over stomach. Patient tolerated procedure well. Diagnosis Primary Impression: Acute respiratory failure with hypoxia and hypercapnia Additional Impression: Hyperkalemia Admitting Information Admitting Physician Requests: Admit Levi Chau MD Dec 01, 2016 19:52
[2016-12-01] MEDS ORDERED: NALOXONE HCL 2 MG/2 ML VIAL IV PUSH ONE ×2 (20:00→22:00)
[2016-12-01] MEDS ORDERED: methylPREDNISolone SOD SUCC 125 MG/2 ML VIAL IVP ONE (20:00)
[2016-12-01] MEDS ORDERED: SODIUM CHLORIDE 0.9% FLUSH 10 ML FLUSH IVF PRN (20:00)
--- NOTE | 2016-12-01 20:25 | RADRPT ---
EXAM DATE/TIME: 12/01/2016 20:10 [facility] COMPARISON: No previous studies available for comparison. INDICATIONS : Short of breath. MEDICAL HISTORY : Chronic obstructive pulmonary disease. SURGICAL HISTORY : None. ENCOUNTER: Initial ACUITY: 1 day PAIN SCORE: 0/10 LOCATION: Bilateral chest FINDINGS: Right base consolidation with a small to moderate effusion noted. Mild changes are seen at the left b ase. There is mild right volume loss. Mild cardiomegaly unchanged. CONCLUSION: Right greater than left basilar consolidation and effusions. Jasper Springer MD on December 01, 2016 at 20:22 Board Certified Radiologist. This report was verified electronically.
[2016-12-01 20:28] LABS: AUTOMATED NEUTROPHIL # 11.8 TH/MM3 (1.8-7.7); BASOPHIL % 0.2 % (0.0-2.0); EOSINOPHIL % 0.1 % (0.0-4.0); HEMATOCRIT 33.2 % (35.0-46.0); LYMPHOCYTE # 1.5 TH/MM3 (1.0-4.8); MEAN CELL VOLUME 98.2 FL (80.0-100.0); MEAN CORPUSCULAR HEMOGLOBIN 30.7 PG (27.0-34.0); MEAN CORPUSCULAR HGB CONC 31.2 % (32.0-36.0); MONO % 1.4 % (0.0-8.0); NEUT % 87.3 % (16.0-70.0); PLATELET COUNT 234 TH/MM3 (150-450); RED BLOOD COUNT 3.38 MIL/MM3 (4.00-5.30); RED CELL DISTRIBUTION WIDTH 17.4 % (11.6-17.2); WHITE BLOOD COUNT 13.5 TH/MM3 (4.0-11.0)
[2016-12-01] MEDS ORDERED: SODIUM CHLOR 0.9% 1000 ML INJ 1,000 ML IV ONE ×2 (20:30→22:00)
[2016-12-01] MEDS ORDERED: CEFEPIME INJ 2,000 MG in SODIUM CHLORIDE 0.9% INJ 100 ML IV ONE (20:30)
[2016-12-01 20:33] VITALS: O2SAT 92
[2016-12-01 20:34] LABS: BLOOD, URINE NEG (NEG); COMMENT (UR) CULT NOT INDICATED; CULTURE IF INDICATED CULT NOT INDICATED; GLUCOSE,URINE NEG (NEG); KETONE, URINE NEG (NEG); MUCUS URINE FEW /lpf (OCC); NITRITE,URINE NEG (NEG); SQUAMOUS EPITHELIAL CELL URINE <1 /hpf (0-5); URINE COLOR YELLOW (YELLW/STRAW)
[2016-12-01 20:39] LABS: APTT (PATIENT) 23.3 SEC (24.3-30.1); INTERNATIONAL NORMALIZED RATIO 0.9 RATIO
[2016-12-01 20:40] LABS: BLOOD GAS CARBOXYHEMOGLOBIN 1.7 % (0-4); BLOOD GAS HCO3 41 mmol/L (22-26); BLOOD GAS METHEMOGLOBIN 0.7 % (0-2); BLOOD GAS O2 HGB SATURATION 86 % (90-100); BLOOD GAS OXYGEN CONTENT 16.5 Vol % (12.0-20.0); BLOOD GAS PCO2 86 mmHg (38-42); BLOOD GAS PO2 52 mmHG (61-120); BLOOD GAS TOTAL HGB 13.7 G/DL (12.0-16.0); TEMP CORR TO 98.6
[2016-12-01 20:41] LABS: CRITICAL VALUE YES; DRAW SITE LT RADIAL; FIO2 100 %; LITER FLOW 15 L/M; NUMBER OF ARTERIAL PUNCTURES 1; OXYGEN DEVICE NONE REBREATHER; STAT YES; ULNAR PULSE PRESENT
[2016-12-01 20:46] LABS: HEMO FLAGS DIFF FINAL
[2016-12-01] MEDS: RESP: ALBUTEROL 2.5 MG/IPRATROPIUM 0.5 MG NEB (SCH) INH (20:46)
[2016-12-01 20:58] VITALS: BP 85/42; PULSE 62; RESP 20; TEMP 97.7; O2SAT 78
--- NOTE | 2016-12-01 21:53 | EKG ---
Date Performed: 12/01/2016 Time Performed: 20:00:56 PTAGE: 76 years EKG: Sinus rhythm WITH OCCASIONAL SUPRAVENTRICULAR PREMATURE COMPLEXES RIGHT BUNDLE BRANCH BLOCK LEFT ANTERIOR FASCICU LAR BLOCK ABNORMAL ECG NO SIGNIFICANT CHANGE FROM PRIOR ELECTROCARDIOGRAM. PREVIOUS TRACING : 11/13/2016 21.06 DOCTOR: Paolo Ferreira Interpretating Date/Time 12/01/2016 21:52:37
[2016-12-01 21:58] LABS: BLOOD GAS BASE EXCESS 9.6 mmol/L (-2-2); BLOOD GAS CARBOXYHEMOGLOBIN 1.7 % (0-4); BLOOD GAS HCO3 36 mmol/L (22-26); BLOOD GAS METHEMOGLOBIN 0.7 % (0-2); BLOOD GAS O2 HGB SATURATION 96 % (90-100); BLOOD GAS OXYGEN CONTENT 13.1 Vol % (12.0-20.0); BLOOD GAS PCO2 76 mmHg (38-42); BLOOD GAS PO2 92 mmHG (61-120); BLOOD GAS TOTAL HGB 9.7 G/DL (12.0-16.0); CRITICAL VALUE YES; DRAW SITE LT RADIAL; FIO2 100 %; NUMBER OF ARTERIAL PUNCTURES 2; OXYGEN DEVICE BiPAP; STAT YES; TEMP CORR TO 98.6; ULNAR PULSE PRESENT; VENT SETTINGS IPAP12/EPAP6
[2016-12-01] MEDS ORDERED: VANCOMYCIN INJ 1,500 MG in SODIUM CHLORID 0.9% 500 ML INJ 500 ML IV ONE (22:00)
[2016-12-01 22:10] VITALS: O2SAT 92
[2016-12-01 22:15] VITALS: BP 209/96; PULSE 98; RESP 24; TEMP 97.5; O2SAT 96
[2016-12-01 22:18] LABS: AMPHETAMINE, URINE NEG (NEG); BARBITURATES, URINE NEG (NEG); COCAINE, URINE NEG (NEG)
[2016-12-01] MEDS ORDERED: LORazepam 2 MG/ML VIAL IV PUSH ONE (22:30)
[2016-12-01 22:39] LABS: TOTAL BILIRUBIN ADULT 0.4 MG/DL (0.2-1.0)
[2016-12-01 23:17] LABS: BICARBONATE 35.4 MEQ/L (21.0-32.0); INDIRECT BILIRUBIN 0.3 MG/DL (0.0-0.8); MAGNESIUM 2.4 MG/DL (1.5-2.5); POTASSIUM 5.8 MEQ/L (3.5-5.1)
[2016-12-02] VITALS (47 sets, daily range): BP systolic 90–182; BP diastolic 53–88; PULSE 51–83; RESP 0–34; TEMP 97.6–99; O2SAT 89–100
[2016-12-02] MEDS ORDERED: SODIUM CHLOR 0.9% 1000 ML INJ 1,000 ML IV SCH (00:51)
[2016-12-02] MEDS ORDERED: RESP: ALBUTEROL 2.5 MG/IPRATROPIUM 0.5 MG NEB (PRN) INH (01:00)
[2016-12-02] MEDS ORDERED: LACTULOSE SYRUP 20 GM/30 ML CUP PO PRN (01:00)
[2016-12-02] MEDS ORDERED: SODIUM CHLORIDE 0.9% FLUSH 10 ML FLUSH PRN (01:00)
[2016-12-02] MEDS ORDERED: SENNOSIDES 8.6 MG TAB PO PRN (01:00)
[2016-12-02] MEDS ORDERED: MISCELLANEOUS NURSING INFORMATION XX SCH (01:00)
[2016-12-02] MEDS ORDERED: METOCLOPRAMIDE HCL 10 MG/2 ML VIAL IV PRN (01:00)
[2016-12-02] MEDS ORDERED: PROCHLORPERAZINE 25 MG SUPP RECTAL PRN (01:00)
[2016-12-02] MEDS ORDERED: MAGNESIUM HYDROXIDE SUSP 30 ML CUP PO PRN ×2 (01:00)
[2016-12-02] MEDS ORDERED: BISACODYL 10 MG SUPP RECTAL PRN (01:00)
[2016-12-02] MEDS ORDERED: CHLORHEXIDINE GLUCONATE 2 % 1 PACK (2 CLOTHS) TOP PRN (01:00)
[2016-12-02] MEDS ORDERED: PROPOFOL 1000 MG/100 ML INJ 100 ML ONE (01:11)
[2016-12-02 01:28] LABS: BLOOD GAS BASE EXCESS 7.4 mmol/L (-2-2); BLOOD GAS CARBOXYHEMOGLOBIN 1.4 % (0-4); BLOOD GAS HCO3 35 mmol/L (22-26); BLOOD GAS METHEMOGLOBIN 0.8 % (0-2); BLOOD GAS O2 HGB SATURATION 93 % (90-100); BLOOD GAS OXYGEN CONTENT 13.4 Vol % (12.0-20.0); BLOOD GAS PCO2 97 mmHg (38-42); BLOOD GAS PO2 78 mmHG (61-120); BLOOD GAS TOTAL HGB 10.2 G/DL (12.0-16.0); TEMP CORR TO 98.6
[2016-12-02 01:29] LABS: CRITICAL VALUE YES
[2016-12-02 01:30] LABS: DRAW SITE RT RADIAL; FIO2 100 %; NUMBER OF ARTERIAL PUNCTURES 1; OXYGEN DEVICE BiPAP; STAT NO; ULNAR PULSE PRESENT; VENT SETTINGS 15/6 PS 9
--- NOTE | 2016-12-02 01:40 | RADRPT ---
EXAM DATE/TIME: 12/02/2016 01:35 [facility] COMPARISON: CHEST SINGLE AP, December 01, 2016, 20:10. INDICATIONS : Post intubation. MEDICAL HISTORY : Chronic obstructive pulmonary disease. SURGICAL HISTORY : None. ENCOUNTER: Subsequent ACUITY: 1 day PAIN SCORE: Non-responsive. LOCATION: Bilateral chest FINDINGS: There is slight cardiomegaly and moderate perivascular pulmonary edema. Focal consolidation is not se en. Bibasilar opacities are present may be due to a combination of consolidation and or pleural effus ion. ET tube is present with tip overlapping approximately 2 cm above the valencia. CONCLUSION: Moderate CHF. Bibasilar opacities are present may be due to a combination of consolid ation and or pleural effusion. Anuradha Anthony MD on December 02, 2016 at 1:37 Board Certified Radiologist. This report was verified electronically.
--- NOTE | 2016-12-02 01:44 | HHI.HP ---
HPI Service Critical Care Medicine Primary Care Physician Fernanda Fox MD Admission Diagnosis PNA, Hypercarbia, Hypoxia, AMS Diagnosis: Travel History International Travel<30 Days: No Contact w/Intl Traveler <30 Da: No Traveled to Known Affected Are: No History of Present Illness 76-year-old female presents with a history of shortness of breath that started at home. She has also altered mental status. Normally patient is awake with eyes open and answers questions right away. EMS reports pt received a muscle relaxer just prior to their arrival. She has received albuterol x 2 en route with however her CO2 Climbing on the BiPAP machine and she became more lethargic with less responsiveness. She was intubated in the emergency department by ER attending for an airway protection. Review of Systems ROS Unobtainable patient is sedated and intubated Past Family Social History Allergies: Coded Allergies: Azithromycin (Verified Allergy, Severe, STOMACH CRAMPS, 10/10/16) Penicillin (Verified Allergy, Severe, 10/10/16) Past Medical History Arthritis Chronic anticoagulation with Xarelto High Cholesterol: Congestive Heart Failure COPD on home O2 Deep Vein Thrombosis x2 Fibromyalgia Headaches Hypertension Thyroid Disease Past Surgical History Cataracts Tubal ligation Tonsillectomy Reported Medications Reported Meds & Active Scripts Active Prednisone 10 Mg Tab 10 Mg PO DAILY TAKE THREE TABLETS BY MOUTH FOR FOUR DAYS THEN TAKE TWO TABLETS BY MOUTH DAILY FOR FOUR DAYS THEN CONTINUE ONE TABLET DAILY. Xarelto (Rivaroxaban) 20 Mg Tab 20 Mg PO DAILY Oxycodone-Acetaminophen 10-325 mg Tab 1 Tab PO Q6H PRN DO NOT USE THIS MEDICINE IF YOU WILL DRIVE A CAR OR USE A MACHINE, ONLY USE IT WHEN RESTING AT HOME. Metoprolol Tartrate 25 Mg Tab 12.5 Mg PO Q12HR HOLD FOR SYSTOLIC BLOOD PRESSURE IN 110 MM HG OR BELOW OR HEART RATE IN 60 OR BELOW. Norvasc (Amlodipine Besylate) 5 Mg Tab 5 Mg PO DAILY Duoneb (Ipratropium-Albuterol Neb) 0.5-2.5 Mg/3 Ml Neb 1 Ampule NEB Q4HR NEB 30 Days Reported Milk of Magnesia Liq (Magnesium Hydroxide) 400 Mg/5 Ml Susp 30 Ml PO DAILY PRN Albuterol Neb (Albuterol Sulfate) 2.5 Mg/3 Ml Neb 2.5 Mg NEB Q2HR NEB PRN While awake Ferrous Sulfate DR (Ferrous Sulfate) 325 Mg Tabdr 325 Mg PO TIDAC Eq Mucus ER (Guaifenesin) 600 Mg Tab 600 Mg PO Q12HR Diff-Stat (Probiotic Product) 1 Cap Cap 1 Cap PO BID Miralax Powder (Polyethylene Glycol 3350 Powder) 1 Pow Pow 17 Gm PO HS Breo Ellipta Inh (Fluticasone/Vilanterol) 100-25 Mcg/Act Inh 1 Puff INH HS Use daily at the same time. Xopenex Neb (Levalbuterol HCl) 1.25 Mg/3 Ml Neb 1.25 Mg NEB Q2HR NEB PRN Xanax (Alprazolam) 0.25 Mg Tab 0.25 Mg PO Q8H PRN Spironolactone 25 Mg Tab 12.5 Mg PO DAILY Flexeril (Cyclobenzaprine HCl) 5 Mg Tab 5 Mg PO TID Gabapentin 600 Mg Tab 600 Mg PO TID Active Ordered Medications Current Medications Medications (Trade) Dose Ordered Sig/Lili Route PRN Reason Start Time Stop Time Status Last Admin Dose Admin Sodium Chloride 2 ml 2 ml UNSCH PRN IVF FLUSH AFTER USING IV ACCESS 12/01/16 20:00 12/01/16 20:01 Sodium Chloride (NS 1000 ml Inj) 1,000 ml @ 84 mls/hr [id number] IV 12/02/16 00:51 12/02/16 01:46 Sodium Chloride (NS Flush) 2 ml UNSCH PRN .XX FLUSH AFTER USING IV ACCESS 12/02/16 01:00 Sodium Chloride (NS Flush) 2 ml BID .XX 12/02/16 09:00 Acetaminophen (Tylenol) 650 mg Q6H PRN PO PAIN 1-10 AND/OR FEVER >101F 12/02/16 01:00 Famotidine (Pepcid Inj) 20 mg Q12HR IV PUSH 12/02/16 09:00 Ondansetron HCl (Zofran Inj) 4 mg Q6H PRN IV NAUSEA OR VOMITING 12/02/16 01:00 Metoclopramide HCl (Reglan Inj) 10 mg Q6H PRN IV NAUSEA OR VOMITING 12/02/16 01:00 Prochlorperazine (Compazine Supp) 25 mg Q12H PRN RECTAL NAUSEA OR VOMITING 12/02/16 01:00 Heparin Sodium (Porcine) (Heparin Inj) 5,000 units Q8H SQ 12/02/16 01:00 12/02/16 01:46 Miscellaneous Information 1 Q361D XX 12/02/16 01:00 12/02/16 04:45 Chlorhexidine Gluconate (Chlorhexidine 2% Cloth) 3 pack Taper DAILY@04 TOP 12/02/16 04:00 11/28/17 03:59 Chlorhexidine Gluconate (Chlorhexidine 2% Cloth) 3 pack UNSCH PRN TOP HYGIENIC CARE 12/02/16 01:00 Senna/Docusate Sodium (Lynn-Colace) 1 tab BID PO 12/02/16 09:00 Magnesium Hydroxide (Milk Of Magnesia Liq) 30 ml Q12H PRN PO MILD - MODERATE CONSTIPATION 12/02/16 01:00 Sennosides (Senokot) 17.2 mg Q12H PRN PO MODERATE - SEVERE CONSTIPATION 12/02/16 01:00 Bisacodyl (Dulcolax Supp) 10 mg DAILY PRN RECTAL SEVERE CONSITIPATION 12/02/16 01:00 Lactulose 30 ml 30 ml DAILY PRN PO SEVERE CONSITIPATION 12/02/16 01:00 Aztreonam 2000 mg/ Sodium Chloride 100 ml @ 200 mls/hr Q8H IV 12/02/16 02:00 12/02/16 01:46 Doxycycline Hyclate/Sodium Chloride (Vibramycin Inj/ NS Inj) 100 ml @ 100 mls/hr Q12H IV 12/02/16 03:00 12/02/16 03:31 Methylprednisolone Sodium Succinate (SoluMEDROL INJ) 40 mg Q12H IV 12/02/16 08:00 Alprazolam (Xanax) 0.25 mg Q8H PRN PO ANXIETY 12/02/16 01:00 Amlodipine Besylate (Norvasc) 5 mg DAILY PO 12/02/16 09:00 Cyclobenzaprine HCl (Flexeril) 5 mg TID PO 12/02/16 09:00 Fluticasone/ Vilanterol (Breo Ellipta 100-25 Inh) 1 puff HS INH 12/02/16 21:00 Gabapentin (Neurontin) 600 mg TID PO 12/02/16 09:00 Guaifenesin (Mucinex Er) 600 mg Q12HR PO 12/02/16 09:00 Magnesium Hydroxide (Milk Of Magnesia Liq) 30 ml DAILY PRN PO INDIGESTION OR UPSET STOMACH 12/02/16 01:00 Metoprolol Tartrate (Lopressor) 12.5 mg Q12HR PO 12/02/16 09:00 Polyethylene Glycol (Miralax) 17 gm HS PO 12/02/16 21:00 Rivaroxaban (Xarelto) 20 mg DAILY PO 12/02/16 09:00 Spironolactone (Aldactone) 12.5 mg DAILY PO 12/02/16 09:00 Ferrous Sulfate (Ferrous Sulfate) 325 mg TIDAC PO 12/02/16 08:00 Lactobacillus Acidophilus 1 tab 1 tab BID PO GI PROPHYLAXSIS 12/02/16 09:00 Metronidazole (Flagyl 500 Mg Inj) 100 ml @ 100 mls/hr Q6H IV 12/02/16 04:00 Family History Noncontributory Social History Alcohol Use: No Tobacco Use: No (quit 2014 smoked 1 ppd cigs for 57 yrs) Substance Use: No Physical Exam Vital Signs Vital Signs Date Time Temp Pulse Resp B/P Pulse Ox O2 Delivery O2 Flow Rate FiO2 12/02/16 01:29 100 12/02/16 01:16 77 16 149/67 98 Ventilator 12/01/16 22:15 97.5 98 24 209/96 96 BiPAP 6 12/01/16 22:10 92 12/01/16 20:58 97.7 62 20 85/42 78 Non-Rebreather 15 12/01/16 20:33 92 100 12/01/16 20:33 92 BiPAP 100 12/01/16 19:53 30 80 Nasal Cannula 6 12/01/16 19:53 80 Nasal Cannula 6 12/01/16 19:53 72 22 80 Nasal Cannula 6 12/01/16 19:49 87 30 85/46 80 Physical Exam GENERAL: Well-nourished, well-developed patient. Sedated and intubated SKIN: Warm and dry. HEAD: Normocephalic. EYES: No scleral icterus. No injection or drainage. NECK: Supple, trachea midline. No JVD or lymphadenopathy. CARDIOVASCULAR: Regular rate and rhythm without murmurs, gallops, or rubs. RESPIRATORY: Breath sounds equal bilaterally. No accessory muscle use. GASTROINTESTINAL: Abdomen soft, non-tender, nondistended. MUSCULOSKELETAL: No cyanosis, or edema. BACK: Nontender without obvious deformity. No CVA tenderness. EXTREMITIES: No clubbing cyanosis or edema Laboratory Laboratory Tests Test 12/01/16 12/01/16 12/01/16 12/01/16 20:00 20:29 21:47 22:30 White Blood Count 13.5 Red Blood Count 3.38 Hemoglobin 10.4 Hematocrit 33.2 Mean Corpuscular Volume 98.2 Mean Corpuscular Hemoglobin 30.7 Mean Corpuscular Hemoglobin 31.2 Concent Red Cell Distribution Width 17.4 Platelet Count 234 Mean Platelet Volume 8.8 Neutrophils (%) (Auto) 87.3 Lymphocytes (%) (Auto) 11.0 Monocytes (%) (Auto) 1.4 Eosinophils (%) (Auto) 0.1 Basophils (%) (Auto) 0.2 Neutrophils # (Auto) 11.8 Lymphocytes # (Auto) 1.5 Monocytes # (Auto) 0.2 Eosinophils # (Auto) 0.0 Basophils # (Auto) 0.0 CBC Comment DIFF FINAL Differential Comment Prothrombin Time 10.0 Prothromb Time International 0.9 Ratio Activated Partial 23.3 Thromboplast Time Urine Color YELLOW Urine Turbidity CLEAR Urine pH 5.0 Urine Specific [place] 1.019 Urine Protein TRACE Urine Glucose (UA) NEG Urine Ketones NEG Urine Occult Blood NEG Urine Nitrite NEG Urine Bilirubin NEG Urine Urobilinogen LESS THAN 2.0 Urine Leukocyte Esterase NEG Urine RBC LESS THAN 1 Urine WBC 1 Urine Squamous Epithelial <1 Cells Urine Mucus FEW Microscopic Urinalysis Comment CULT NOT INDICATED B-Type Natriuretic Peptide 82 Urine Opiates Screen NEG Urine Barbiturates Screen NEG Urine Amphetamines Screen NEG Urine Benzodiazepines Screen NEG Urine Cocaine Screen NEG Urine Cannabinoids Screen NEG Blood Gas Puncture Site LT RADIAL LT RADIAL Blood Gas Patient Temperature 98.6 98.6 Blood Gas HCO3 41 36 Blood Gas Base Excess 14.0 9.6 Blood Gas Oxygen Saturation 86 96 Arterial Blood pH 7.30 7.30 Arterial Blood Partial 86 76 Pressure CO2 Arterial Blood Partial 52 92 Pressure O2 Arterial Blood Oxygen Content 16.5 13.1 Arterial Blood 1.7 1.7 Carboxyhemoglobin Arterial Blood Methemoglobin 0.7 0.7 Blood Gas Hemoglobin 13.7 9.7 Oxygen Delivery Device NONE BiPAP REBREATHER Blood Gas Liter Flow 15 Blood Gas Inspired Oxygen 100 100 Blood Gas Ventilator Setting [id number] Sodium Level 143 Potassium Level 5.8 Chloride Level 102 Carbon Dioxide Level 35.4 Anion Gap 6 Blood Urea Nitrogen 35 Creatinine 1.06 Estimat Glomerular Filtration 50 Rate Random Glucose 171 Calcium Level 8.4 Magnesium Level 2.4 Total Bilirubin 0.4 Direct Bilirubin 0.1 Indirect Bilirubin 0.3 Aspartate Amino Transf 74 (AST/SGOT) Alanine Aminotransferase 75 (ALT/SGPT) Alkaline Phosphatase 30 Troponin I 0.02 Total Protein 5.8 Albumin 2.6 Test 12/02/16 00:45 Blood Gas Puncture Site RT RADIAL Blood Gas Patient Temperature 98.6 Blood Gas HCO3 35 Blood Gas Base Excess 7.4 Blood Gas Oxygen Saturation 93 Arterial Blood pH 7.19 Arterial Blood Partial 97 Pressure CO2 Arterial Blood Partial 78 Pressure O2 Arterial Blood Oxygen Content 13.4 Arterial Blood 1.4 Carboxyhemoglobin Arterial Blood Methemoglobin 0.8 Blood Gas Hemoglobin 10.2 Oxygen Delivery Device BiPAP Blood Gas Ventilator Setting 15/6 PS 9 Blood Gas Inspired Oxygen 100 Date/Time Procedure Status Source Growth 12/01/16 21:55 Aerobic Blood Culture Received Blood Peripheral Pending 12/01/16 21:55 Anaerobic Blood Culture Received Blood Peripheral Pending Result Diagram: 12/01/16199912/01/16 2230 Imaging Last 24 hours Impressions Chest X-Ray 12/02/16 0000 Signed Impressions: Service Date/Time: Friday, December 02, 2016 01:35 - CONCLUSION: Moderate CHF. Bibasilar opacities are present may be due to a combination of consolidation and or pleural effusion. 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 Anuradha Anthony MD Chest X-Ray 12/01/161947 Signed Impressions: Service Date/Time: Thursday, December 01, 2016 20:10 - CONCLUSION: Right greater than left basilar consolidation and effusions. Jasper Springer MD Assessment and Plan Assessment and Plan Respiratory failure - Intubated for an airway protection - Continue mechanical ventilation - Daily SBT and attempt to wean - DuoNeb's - CXR and ABGs COPD exacerbation - IV steroids - IV antibiotic - DuoNeb's when necessary and scheduled - Mechanical ventilation Community-acquired pneumonia - Broad-spectrum antibiotic - Pancultured - De-escalate per sensitivity Large pleural effusion - Hold anticoagulation - Thoracentesis if indicated History of DVTs - Hold Xarelto for possible thoracentesis - Resume when no surgical interventions plan Hypertension - Resume home medication DVT GI prophylaxis - Xarelto - IV Pepcid Critical Care: The total critical care time was 35 minutes. Time to perform other separately billable procedures was not included in the critical care time. Austin Dia MD Dec 02, 2016 01:44
[2016-12-02] MEDS: AZTREONAM INJ 2,000 MG in SODIUM CHLORIDE 0.9% INJ 100 ML IV SCH ×3 (01:46→17:35)
[2016-12-02] MEDS: HEPARIN SODIUM - SQ 10,000 UNITS/ML VIAL SQ SCH ×3 (01:46→17:36)
[2016-12-02] MEDS ORDERED: DOXYCYCLINE INJ 100 MG in SODIUM CHLORIDE 0.9% INJ 100 ML IV SCH (03:00)
[2016-12-02] MEDS ORDERED: DEXTROSE 50% IN WATER 50 ML VIAL(D50) IV PUSH ONE (03:15)
[2016-12-02] MEDS ORDERED: CALCIUM GLUCONATE 10% 1 GM/10 ML VIAL SLOW IVP ONE (03:15)
[2016-12-02] MEDS ORDERED: SODIUM POLYSTYRENE SULFONATE SUSP 15 GM/60 ML CUP PO ONE (03:15)
[2016-12-02] MEDS ORDERED: INSULIN HUMAN REGULAR 1,000 UNITS/10 ML VIAL IV PUSH ONE (03:30)
[2016-12-02 03:32] LABS: BLOOD GAS BASE EXCESS 6.3 mmol/L (-2-2); BLOOD GAS CARBOXYHEMOGLOBIN 1.8 % (0-4); BLOOD GAS HCO3 30 mmol/L (22-26); BLOOD GAS METHEMOGLOBIN 0.5 % (0-2); BLOOD GAS O2 HGB SATURATION 86 % (90-100); BLOOD GAS OXYGEN CONTENT 11.9 Vol % (12.0-20.0); BLOOD GAS PCO2 41 mmHg (38-42); BLOOD GAS PO2 42 mmHG (61-120); BLOOD GAS TOTAL HGB 9.8 G/DL (12.0-16.0); TEMP CORR TO 98.6
[2016-12-02 03:33] LABS: CRITICAL VALUE YES; OXYGEN DEVICE VENTILATOR
[2016-12-02 03:34] LABS: DRAW SITE LT RADIAL; NUMBER OF ARTERIAL PUNCTURES 1; STAT YES; ULNAR PULSE PRESENT; VENT SETTINGS AC/20/500/PEEP5
[2016-12-02 04:00] LABS: BLOOD GAS BASE EXCESS 5.9 mmol/L (-2-2); BLOOD GAS CARBOXYHEMOGLOBIN 1.9 % (0-4); BLOOD GAS HCO3 29 mmol/L (22-26); BLOOD GAS METHEMOGLOBIN 0.8 % (0-2); BLOOD GAS O2 HGB SATURATION 88 % (90-100); BLOOD GAS OXYGEN CONTENT 12.4 Vol % (12.0-20.0); BLOOD GAS PCO2 40 mmHg (38-42); BLOOD GAS PO2 45 mmHG (61-120); BLOOD GAS TOTAL HGB 10.1 G/DL (12.0-16.0); CRITICAL VALUE YES; OXYGEN DEVICE VENTILATOR; TEMP CORR TO 98.6
[2016-12-02] MEDS: CHLORHEXIDINE GLUCONATE 2 % 1 PACK (2 CLOTHS) TOP SCH (04:00)
[2016-12-02 04:01] LABS: DRAW SITE RT RADIAL; FIO2 50 %; NUMBER OF ARTERIAL PUNCTURES 1; STAT YES; ULNAR PULSE PRESENT; VENT SETTINGS AC/20/500/PEEP
[2016-12-02 04:03] LABS: FIO2 50 %
--- NOTE | 2016-12-02 04:28 | RADRPT ---
EXAM DATE/TIME: 12/02/2016 04:14 [facility] COMPARISON: CT BRAIN W/O CONTRAST, September 25, 2016, 23:08. INDICATIONS : Altered mental status. RADIATION DOSE: 42.20 CTDIvol (mGy) MEDICAL HISTORY : Cardiovascular disease. Hypertension. Chronic obstructive pulmonary disease.DVT SURGICAL HISTORY : None. ENCOUNTER: Initial ACUITY: 1 day PAIN SCALE: Non-responsive LOCATION: cranial TECHNIQUE: Multiple contiguous axial images were obtained of the head. Using automated exposure control and adj ustment of the mA and/or kV according to patient size, radiation dose was kept as low as reasonably a chievable to obtain optimal diagnostic quality images. FINDINGS: There is no evidence for intracranial hemorrhage, mass effect, mass lesions, edema, or extra-axial fl uid collections. The visualized bony structures appear intact. The ventricles are normal size for t he patient's age. There are no signs of acute infarction for technique. 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 Anuradha Anthony MD on December 02, 2016 at 4:25 Board Certified Radiologist. This report was verified electronically.
[2016-12-02] MEDS: RESP: ALBUTEROL 2.5 MG/IPRATROPIUM 0.5 MG NEB (SCH) INH ×4 (04:58→20:16)
[2016-12-02] MEDS ORDERED: PROPOFOL 1000 MG/100 ML INJ 100 ML IV SCH (05:15)
[2016-12-02] MEDS: metroNIDAZOLE 500 MG INJ 100 ML IV SCH ×4 (05:22→21:35)
[2016-12-02] MEDS: PROPOFOL 1000 MG/100 ML INJ 100 ML IV SCH ×2 (05:55→17:35)
[2016-12-02] MEDS ORDERED: methylPREDNISolone SOD SUCC 40 MG/1 ML VIAL IV SCH (08:00)
[2016-12-02] MEDS ORDERED: METOPROLOL TARTRATE 25 MG TAB PO SCH (09:00)
[2016-12-02] MEDS ORDERED: guaiFENesin E.R. 600 MG TAB PO SCH (09:00)
[2016-12-02] MEDS ORDERED: RIVAROXABAN 20 MG TAB PO SCH (09:00)
[2016-12-02] MEDS ORDERED: SPIRONOLACTONE 25 MG TAB PO SCH (09:00)
[2016-12-02] MEDS: FAMOTIDINE 20 MG/2 ML VIAL IV PUSH SCH ×2 (09:21→21:34)
[2016-12-02] MEDS: amLODIPine BESYLATE 5 MG TAB PO SCH (09:21)
[2016-12-02] MEDS: GABAPENTIN 300 MG CAP PO SCH ×3 (09:21→17:36)
[2016-12-02] MEDS: DOCUSATE SODIUM 50 MG/SENNA 8.6 MG TAB PO SCH ×2 (09:21→21:34)
[2016-12-02] MEDS: FERROUS SULFATE 325 MG (65 MG ELEMENTAL IRON) TAB PO SCH ×3 (09:21→17:38)
[2016-12-02] MEDS: CYCLOBENZAPRINE HCL 10 MG TAB PO SCH ×3 (09:21→17:36)
[2016-12-02] MEDS: LACTOBACILLUS ACIDOPHILUS TAB PO SCH ×2 (09:22→21:34)
[2016-12-02] MEDS: SODIUM CHLORIDE 0.9% FLUSH 10 ML FLUSH SCH ×2 (09:22→21:34)
[2016-12-02 09:58] LABS: AUTOMATED NEUTROPHIL # 9.6 TH/MM3 (1.8-7.7); BASOPHIL # 0.1 TH/MM3 (0-0.2); BASOPHIL % 0.5 % (0.0-2.0); EOSINOPHIL % 0.1 % (0.0-4.0); HEMATOCRIT 30.3 % (35.0-46.0); HEMO FLAGS DIFF FINAL; LYMPH % 9.8 % (9.0-44.0); LYMPHOCYTE # 1.1 TH/MM3 (1.0-4.8); MEAN CELL VOLUME 97.3 FL (80.0-100.0); MEAN CORPUSCULAR HEMOGLOBIN 30.9 PG (27.0-34.0); MEAN CORPUSCULAR HGB CONC 31.8 % (32.0-36.0); MONO % 1.2 % (0.0-8.0); NEUT % 88.4 % (16.0-70.0); PLATELET COUNT 193 TH/MM3 (150-450); RED BLOOD COUNT 3.11 MIL/MM3 (4.00-5.30); RED CELL DISTRIBUTION WIDTH 17.2 % (11.6-17.2); WHITE BLOOD COUNT 10.8 TH/MM3 (4.0-11.0)
[2016-12-02 10:07] LABS: ALT (GPT) 85 U/L (10-53)
[2016-12-02 10:08] LABS: ALKALINE PHOSPHATASE 30 U/L (45-117); TOTAL BILIRUBIN ADULT 0.4 MG/DL (0.2-1.0)
[2016-12-02 10:18] LABS: ANION GAP 9 MEQ/L (5-15); AST (GOT) 68 U/L (15-37); BICARBONATE 27.9 MEQ/L (21.0-32.0); BLOOD UREA NITROGEN 33 MG/DL (7-18); CHLORIDE 102 MEQ/L (98-107); GLOMERULAR FILTRATION RATE 56 ML/MIN (>89); MAGNESIUM 2.4 MG/DL (1.5-2.5); SODIUM (NA) 139 MEQ/L (136-145)
[2016-12-02] MEDS ORDERED: POTASSIUM PHOSPHATE MONOBASIC 500 MG TAB PO PRN (10:30)
[2016-12-02] MEDS ORDERED: MAGNESIUM OXIDE 400 MG TAB PO PRN (10:30)
[2016-12-02] MEDS ORDERED: MAGNESIUM SULFATE INJ 2 GM in SODIUM CHLORIDE 0.9% INJ 96 ML IV PRN (10:30)
[2016-12-02] MEDS ORDERED: SODIUM PHOSPHATE INJ 30 MMOL in SODIUM CHLOR 0.9% 250 ML INJ 240 ML IV PRN (10:30)
[2016-12-02] MEDS ORDERED: POTASSIUM PHOSPHATE INJ 30 MMOL in SODIUM CHLOR 0.9% 250 ML INJ 250 ML IV PRN (10:30)
[2016-12-02] MEDS ORDERED: POTASSIUM CHLOR 40 MEQ PREMIX 100 ML IV PRN ×2 (10:30)
[2016-12-02] MEDS ORDERED: BUMETANIDE INJ 1 MG/4 ML VIAL IV PUSH ONE (10:30)
[2016-12-02] MEDS ORDERED: POTASSIUM CHLOR 20 MEQ PREMIX 100 ML IV PRN ×2 (10:30)
[2016-12-02] MEDS ORDERED: POTASSIUM CHLORIDE 25 MEQ EFFERVESCENT TAB PO PRN (10:30)
[2016-12-02] MEDS ORDERED: MAGNESIUM SULFATE INJ 4 GM in SODIUM CHLORIDE 0.9% INJ 92 ML IV PRN (10:30)
[2016-12-02] MEDS ORDERED: POTASSIUM PHOSPHATE MONOBASIC 500 MG TAB PO/TUBE PRN (10:30)
--- NOTE | 2016-12-02 11:27 | RADRPT ---
EXAM DATE/TIME: 12/02/2016 10:46 [facility] COMPARISON: CT THORAX W/O CONTRAST, September 16, 2013, 12:12. INDICATIONS : Shortness of breath, change in mental status RADIATION DOSE: 7.45 CTDIvol (mGy) MEDICAL HISTORY : Hypertension. Cardiovascular disease Carcinoma, thyroid. SURGICAL HISTORY : None. ENCOUNTER: Initial ACUITY: 1 day PAIN SCALE: Non-responsive LOCATION: Chest TECHNIQUE: Volumetric scanning of the chest was performed. Using automated exposure control and adjustment of t he mA and/or kV according to patient size, radiation dose was kept as low as reasonably achievable to obtain optimal diagnostic quality images. FINDINGS: The heart is enlarged. Coronary artery calcifications are noted. Calcification of the mitral annuls is also noted. There is mild fusiform dilatation of the aortic arch which measures 4.5 cm in greatest dimension. Th is has increased slightly compared to the previous examination in August 2013. No mediastinal, hilar or axil kristian lymphadenopathy is noted. Small bilateral pleural effusions are noted. Bibasilar alveolar consolida tions are noted consistent with compressive atelectasis and/or pneumonia (right slightly worse than left). The re is a stable calcified granuloma within the left lower lobe. Mild patchiness is noted within the right upper lobe consistent with possible pneumonia. Bi-apical bullous emphysema is noted. There is elevation of the right carroll diaphragm. Multiple simple and complex cysts are noted involving the kidneys bilaterally. Calcified gallstones are noted within the gallbladder. Punctate calcifications are noted throughout the spleen consistent with gran ulomatous changes. A nasogastric tube has its tip in the distal stomach. Degenerative changes and scoliosis o f the thoracolumbar spine are noted. CONCLUSION: 1. Small bilateral pleural effusions with adjacent alveolar consolidations (right slightly worse rachel n left) consistent with atelectasis and/or pneumonia. Clinical correlation is recommended. 2. Patchiness within the right upper lobe consistent with possible pneumonia. Clinical correlation is recommended. 3. Cardiomegaly, coronary artery calcifications and mitral annulus calcifications. 4. Fusiform dilatation of the aortic arch which measures 4.5 cm in greatest dimension and has increa sed slightly in size compared to 09/16/13. 5. Cholelithiasis. 6. Multiple simple and complex renal cysts bilaterally. 7. Degenerative changes and scoliosis of the thoracolumbar spine. Galen Pierre MD on December 02, 2016 at 11:09 Board Certified Radiologist. This report was verified electronically.
[2016-12-02 14:21] LABS: BLOOD GAS CARBOXYHEMOGLOBIN 1.9 % (0-4); BLOOD GAS HCO3 30 mmol/L (22-26); BLOOD GAS METHEMOGLOBIN 1.2 % (0-2); BLOOD GAS O2 HGB SATURATION 91 % (90-100); BLOOD GAS OXYGEN CONTENT 13.1 Vol % (12.0-20.0); BLOOD GAS PCO2 39 mmHg (38-42); BLOOD GAS PO2 61 mmHg (61-120); BLOOD GAS TOTAL HGB 10.2 G/DL (12.0-16.0); TEMP CORR TO 98.6
[2016-12-02 14:22] LABS: CRITICAL VALUE NO; DRAW SITE LT RADIAL; FIO2 45 %; NUMBER OF ARTERIAL PUNCTURES 1; OXYGEN DEVICE VENTILATOR; STAT NO; ULNAR PULSE Y; VENT SETTINGS AC/500/16/+10PEEP
[2016-12-02] MEDS: AZITHROMYCIN INJ 500 MG in SODIUM CHLOR 0.9% 250 ML INJ 250 ML IV SCH (14:48)
--- NOTE | 2016-12-02 18:37 | RADRPT ---
EXAM DATE/TIME: 12/02/2016 17:19 [facility] COMPARISON: No previous studies available for comparison. INDICATIONS : Increased lab values. MEDICAL HISTORY : Hypercholesterolemia. Hypertension. Chronic obstructive pulmonary disease. Thyroid disease. Hearing l oss. Congestive heart failure. Anticoagulant therapy, Xarelto. Deep vein thrombosis. Renal insufficie ncy. Fibromyalgia. Arthritis. Osteoporosis. SURGICAL HISTORY : Tubal ligation. Tonsillectomy. Cataract removal. ENCOUNTER: Initial ACUITY: 1 day PAIN SCORE: Nonresponsive. LOCATION: Abdomen. MEASUREMENTS: LIVER: 13.6 cm length COMMON DUCT: 10 mm RIGHT KIDNEY: 12.3 x 5.5 x 4.9 cm SPLEEN: 8.6 cm length FINDINGS: LIVER: Normal echotexture without focal lesion or ductal dilatation. COMMON DUCT: No intraluminal mass or stone visualized. GALLBLADDER: Stones measuring up to 14 mm seen. No wall thickening or pericholecystic fluid. No sonographic Gipson 's sign elicited. PANCREAS: The visualized portions are within normal limits. RIGHT KIDNEY: Large cyst right upper pole measuring about 8 cm. SPLEEN: No focal lesion. CONCLUSION: 1. Common bile duct upper limits of normal caliber for a patient this age. No duct stone. 2. Several stones in the gallbladder measuring up to 14 mm in size. No evidence of acute cholecystiti s Jasper Springer MD on December 02, 2016 at 18:32 Board Certified Radiologist. This report was verified electronically.
[2016-12-02] MEDS: FLUTICASONE 100 MCG/VILANTEROL 25 MCG INHALER INH SCH (21:00)
--- NOTE | 2016-12-02 21:26 | MB ---
cc: ErnstMarvMERRITT,GABBY DATE OF CONSULTATION 12/02/2016 REASON FOR CONSULTATION Respiratory failure and pulmonary edema. HISTORY OF THE PRESENT ILLNESS This is a 76-year-old white female who was brought to the emergency room with altered mental status and shortness of breath. The patient apparently does have a history of hypertension and atrial arrhythmias with congestive failure and has been on anticoagulants. The patient upon arrival to the ER was noted to be quite lethargic and breathing shallow and needed to be intubated emergently. Upon intubation she was placed on 100% FIO2 and PEEP of 5, but her initial saturations were poor and thus her PEEP was increased to 10 cm. Chest x-ray was done which showed evidence of pulmonary edema and pleural effusions. The patient has now been placed on ventilator support and sedated with Diprivan. She is assisting the ventilator. There was no history of chest pain. No fever, no vomiting or aspiration that was noted. The patient is unable to respond since she is intubated. PAST MEDICAL HISTORY Past history includes: 1. Congestive heart failure. 2. Chronic obstructive pulmonary disease. 3. History of DVT x2. 4. Hypertension. 5. History of fibromyalgia. 6. And history of hypothyroidism. 7. She has arthritis. PAST SURGICAL HISTORY Includes: 1. Cataract repair. 2. Tubal ligation. 3. Tonsillectomy remotely. ALLERGIES TO ZITHROMAX AND PENICILLIN. FAMILY HISTORY Was noncontributory. MEDICATIONS List was reviewed from the chart which included: 1. Xarelto. 2. Prednisone. 3. Metoprolol. 4. Norvasc. 5. Nebulized DuoNeb solution. 6. And also on Breo. REVIEW OF SYSTEMS The patient is intubated and on respirator. HABITS The patient smoked a pack per day for over 50 years and then quit. No significant alcohol use. PHYSICAL EXAMINATION GENERAL: This well-built elderly lady who is intubated, poorly responsive and assisting the ventilator. VITAL SIGNS: Blood pressure 150/70, pulse is 75, respirations 22, temperature 97.5. HEENT: Head normocephalic. Pupils are reactive. Tongue is moist. Throat is injected. NECK: Supple. No bruits or thyroid enlargement. CHEST: Decreased breath sounds at the bases with occasional wheezes throughout both lung mcgill and basilar crackles. CARDIOVASCULAR: Heart sounds are irregular S1-S2 with no murmur. No S3. ABDOMEN: Soft, protuberant without masses. No organomegaly or tenderness. EXTREMITIES: No lesions. No edema. NEUROLOGIC: Reflexes are 1+ with no gross motor deficits. Cranial nerves grossly intact. RECTAL: Exam is deferred. SKIN: No lesions are noted. IMPRESSION 1. Acute respiratory failure. 2. COPD with chronic bronchitis and emphysema. 3. CHF with pleural effusions. 4. History of hypertension. 5. Atrial arrhythmias. 6. History of DVT. PLAN The patient will be maintained on ventilator support. We will place her on PEEP of 10, rate of 16 and FIO2 of 45%. Blood gases to be repeated. Solu-Medrol 40 mg IV q.8h to be added as well as antibiotic coverage including Zithromax. Antibiotic coverage which includes aztreonam 2000 mg every 8 hours. The patient will be placed on DuoNeb solution with nebulizer q.i.d. Diuretic therapy daily and continue with Flagyl 500 mg IV q.8h. Chest x-ray to be repeated a.m. and blood gases. If she is clinically stable she will be weaned down to C-PAP in the a.m. and hopefully be extubated in the next 24-[address]. [address] Back for this consultation. Gabby Munoz MD JJARET/BILLIE /8:14 PM /9:18 PM
[2016-12-02] MEDS: POLYETHYLENE GLYCOL 17 GM PKG PO SCH (21:34)
[2016-12-02] MEDS: methylPREDNISolone SOD SUCC 40 MG/1 ML VIAL IV SCH (21:35)
[2016-12-03] VITALS (46 sets, daily range): BP systolic 94–146; BP diastolic 56–80; PULSE 53–83; RESP 14–78; TEMP 97.7–98.3; O2SAT 93–100
[2016-12-03] MEDS: HEPARIN SODIUM - SQ 10,000 UNITS/ML VIAL SQ SCH ×2 (01:46→08:56)
[2016-12-03] MEDS: PROPOFOL 1000 MG/100 ML INJ 100 ML IV SCH ×4 (01:46→21:38)
[2016-12-03] MEDS: AZTREONAM INJ 2,000 MG in SODIUM CHLORIDE 0.9% INJ 100 ML IV SCH ×3 (01:47→17:32)
[2016-12-03 02:03] LABS: BASOPHIL % 0.5 % (0.0-2.0); EOSINOPHIL % 0.3 % (0.0-4.0); HEMATOCRIT 35.3 % (35.0-46.0); HEMO FLAGS DIFF FINAL; LYMPH % 10.9 % (9.0-44.0); MEAN CELL VOLUME 95.4 FL (80.0-100.0); MEAN CORPUSCULAR HGB CONC 31.4 % (32.0-36.0); NEUT % 85.3 % (16.0-70.0); PLATELET COUNT 189 TH/MM3 (150-450); RED CELL DISTRIBUTION WIDTH 17.8 % (11.6-17.2); WHITE BLOOD COUNT 9.4 TH/MM3 (4.0-11.0)
[2016-12-03 02:27] LABS: ALKALINE PHOSPHATASE 33 U/L (45-117); ALT (GPT) 72 U/L (10-53); ANION GAP 8 MEQ/L (5-15); AST (GOT) 41 U/L (15-37); BICARBONATE 33.5 MEQ/L (21.0-32.0); BLOOD UREA NITROGEN 32 MG/DL (7-18); CHLORIDE 101 MEQ/L (98-107); GLOMERULAR FILTRATION RATE 53 ML/MIN (>89); MAGNESIUM 2.3 MG/DL (1.5-2.5); POTASSIUM 3.9 MEQ/L (3.5-5.1); SODIUM (NA) 142 MEQ/L (136-145); TOTAL BILIRUBIN ADULT 0.4 MG/DL (0.2-1.0)
[2016-12-03] MEDS: RESP: ALBUTEROL 2.5 MG/IPRATROPIUM 0.5 MG NEB (SCH) INH ×4 (03:44→21:23)
[2016-12-03] MEDS: CHLORHEXIDINE GLUCONATE 2 % 1 PACK (2 CLOTHS) TOP SCH (04:00)
[2016-12-03 04:28] LABS: INTERNATIONAL NORMALIZED RATIO 0.9 RATIO; PROTHROMBIN TIME - PATIENT 10.3 SEC (9.8-11.6)
--- NOTE | 2016-12-03 04:30 | RADRPT ---
EXAM DATE/TIME: 12/03/2016 03:50 [facility] COMPARISON: CHEST SINGLE AP, December 02, 2016, 1:35. INDICATIONS : Shortness of breath. MEDICAL HISTORY : Chronic obstructive pulmonary disease. Deep venous thrombosis. Hypertension. Cardiovascular dise ase Carcinoma, thyroid SURGICAL HISTORY : None. ENCOUNTER: Subsequent ACUITY: 3 days PAIN SCORE: Non-responsive. LOCATION: Bilateral chest FINDINGS: There is improvement in pulmonary edema since the prior examination with mild perivascular pulmonary venous congestion remaining. The rest of the examination has not significantly changed. CONCLUSION: Improvement in pulmonary edema. Anuradha Anthony MD on December 03, 2016 at 4:26 Board Certified Radiologist. This report was verified electronically.
[2016-12-03] MEDS: metroNIDAZOLE 500 MG INJ 100 ML IV SCH ×4 (04:35→21:37)
[2016-12-03] MEDS: methylPREDNISolone SOD SUCC 40 MG/1 ML VIAL IV SCH ×3 (04:35→21:37)
[2016-12-03 05:05] LABS: BLOOD GAS CARBOXYHEMOGLOBIN 1.9 % (0-4); BLOOD GAS HCO3 30 mmol/L (22-26); BLOOD GAS METHEMOGLOBIN 1.2 % (0-2); BLOOD GAS O2 HGB SATURATION 87 % (90-100); BLOOD GAS OXYGEN CONTENT 12.2 Vol % (12.0-20.0); BLOOD GAS PCO2 40 mmHg (38-42); BLOOD GAS PO2 55 mmHg (61-120); BLOOD GAS TOTAL HGB 9.9 G/DL (12.0-16.0); TEMP CORR TO 98.6
[2016-12-03 05:07] LABS: CRITICAL VALUE YES; OXYGEN DEVICE VENTILATOR
[2016-12-03 05:08] LABS: DRAW SITE RT RADIAL; FIO2 40 %; NUMBER OF ARTERIAL PUNCTURES 2; STAT NO; ULNAR PULSE PRESENT; VENT SETTINGS AC 16/500/PEEP10
[2016-12-03] MEDS: FERROUS SULFATE 325 MG (65 MG ELEMENTAL IRON) TAB PO SCH ×3 (08:00→16:10)
[2016-12-03] MEDS ORDERED: GLUCAGON 1 MG/ML VIAL OTHER PRN (08:30)
[2016-12-03] MEDS ORDERED: DEXTROSE 50% IN WATER 50 ML VIAL(D50) IV PRN (08:30)
[2016-12-03] MEDS: INSULIN NovoLIN REGULAR SUPPLEMENTAL SCALE SQ SCH ×3 (08:30→17:31)
--- NOTE | 2016-12-03 08:32 | HHI.CCPN ---
Subjective Remarks/Hospital Course 76-year-old female presents with a history of shortness of breath that started at home. She has also altered mental status. Normally patient is awake with eyes open and answers questions right away. EMS reports pt received a muscle relaxer just prior to their arrival. She has received albuterol x 2 en route with however her CO2 Climbing on the BiPAP machine and she became more lethargic with less responsiveness. She was intubated in the emergency department by ER attending for an airway protection. 12/03 Patient is sedated with Diprivan and intubated. Afebrile. On ACV with PEEP: 10, FIO2 45. Objective Vital Signs Date Time Temp Pulse Resp B/P Pulse Ox O2 Delivery O2 Flow Rate FiO2 12/03/16 06:00 60 12/03/16 06:00 45 12/03/16 04:11 96 12/03/16 04:00 97.7 16 110/61 12/02/16 01:16 Ventilator 12/01/16 22:15 6 Intake and Output 12/02/16 12/02/16 12/03/16 08:00 16:00 00:00 Intake Total 1115 ml 910 ml 930 ml Output Total 450 ml 725 ml 675 ml Balance 665 ml 185 ml 255 ml Result Diagram: 12/03/16 0152 12/03/16 0152 Other Results Laboratory Tests Test 12/02/16 12/02/16 12/02/16 12/03/16 09:40 09:41 14:07 01:52 White Blood Count 10.8 TH/MM3 9.4 TH/MM3 Red Blood Count 3.11 MIL/MM3 3.70 MIL/MM3 Hemoglobin 9.6 GM/DL 11.1 GM/DL Hematocrit 30.3 % 35.3 % Mean Corpuscular Volume 97.3 FL 95.4 FL Mean Corpuscular Hemoglobin 30.9 PG 30.0 PG Mean Corpuscular Hemoglobin 31.8 % 31.4 % Concent Red Cell Distribution Width 17.2 % 17.8 % Platelet Count 193 TH/MM3 189 TH/MM3 Mean Platelet Volume 8.4 FL 8.2 FL Neutrophils (%) (Auto) 88.4 % 85.3 % Lymphocytes (%) (Auto) 9.8 % 10.9 % Monocytes (%) (Auto) 1.2 % 3.0 % Eosinophils (%) (Auto) 0.1 % 0.3 % Basophils (%) (Auto) 0.5 % 0.5 % Neutrophils # (Auto) 9.6 TH/MM3 8.0 TH/MM3 Lymphocytes # (Auto) 1.1 TH/MM3 1.0 TH/MM3 Monocytes # (Auto) 0.1 TH/MM3 0.3 TH/MM3 Eosinophils # (Auto) 0.0 TH/MM3 0.0 TH/MM3 Basophils # (Auto) 0.1 TH/MM3 0.0 TH/MM3 CBC Comment DIFF FINAL DIFF FINAL Differential Comment Sodium Level 139 MEQ/L 142 MEQ/L Potassium Level 5.0 MEQ/L 3.9 MEQ/L Chloride Level 102 MEQ/L 101 MEQ/L Carbon Dioxide Level 27.9 MEQ/L 33.5 MEQ/L Anion Gap 9 MEQ/L 8 MEQ/L Blood Urea Nitrogen 33 MG/DL 32 MG/DL Creatinine 0.97 MG/DL 1.01 MG/DL Estimat Glomerular Filtration 56 ML/MIN 53 ML/MIN Rate Random Glucose 129 MG/DL 159 MG/DL Calcium Level 8.6 MG/DL 7.9 MG/DL Phosphorus Level 1.7 MG/DL 3.6 MG/DL Magnesium Level 2.4 MG/DL 2.3 MG/DL Total Bilirubin 0.4 MG/DL 0.4 MG/DL Aspartate Amino Transf 68 U/L 41 U/L (AST/SGOT) Alanine Aminotransferase 85 U/L 72 U/L (ALT/SGPT) Alkaline Phosphatase 30 U/L 33 U/L Total Protein 5.5 GM/DL 5.8 GM/DL Albumin 2.4 GM/DL 2.6 GM/DL Blood Gas Puncture Site LT RADIAL Blood Gas Patient Temperature 98.6 Blood Gas HCO3 30 mmol/L Blood Gas Base Excess 6.0 mmol/L Blood Gas Oxygen Saturation 91 % Arterial Blood pH 7.49 Arterial Blood Partial 39 mmHg Pressure CO2 Arterial Blood Partial 61 mmHg Pressure O2 Arterial Blood Oxygen Content 13.1 Vol % Arterial Blood 1.9 % Carboxyhemoglobin Arterial Blood Methemoglobin 1.2 % Blood Gas Hemoglobin 10.2 G/DL Oxygen Delivery Device VENTILATOR Blood Gas Ventilator Setting AC/500/16/+10PEEP Blood Gas Inspired Oxygen 45 % Test 12/03/16 12/03/16 04:02 04:52 Prothrombin Time 10.3 SEC Prothromb Time International 0.9 RATIO Ratio Lactic Acid Level 2.3 mmol/L Blood Gas Puncture Site RT RADIAL Blood Gas Patient Temperature 98.6 Blood Gas HCO3 30 mmol/L Blood Gas Base Excess 6.0 mmol/L Blood Gas Oxygen Saturation 87 % Arterial Blood pH 7.48 Arterial Blood Partial 40 mmHg Pressure CO2 Arterial Blood Partial 55 mmHg Pressure O2 Arterial Blood Oxygen Content 12.2 Vol % Arterial Blood 1.9 % Carboxyhemoglobin Arterial Blood Methemoglobin 1.2 % Blood Gas Hemoglobin 9.9 G/DL Oxygen Delivery Device VENTILATOR Blood Gas Ventilator Setting AC 16/500/PEEP10 Blood Gas Inspired Oxygen 40 % Imaging Last Impressions Lower Extremity Ultrasound 12/03/16 0000 Signed Impressions: Service Date/Time: Saturday, December 03, 2016 09:17 - CONCLUSION: Nonocclusive deep venous thrombus within the posterior tibial veins bilaterally. Galen Pierre MD Chest X-Ray 12/03/16 0000 Signed Impressions: Service Date/Time: Saturday, December 03, 2016 03:50 - CONCLUSION: Improvement in pulmonary edema. Anuradha Anthony MD Liver Ultrasound 12/02/16 0000 Signed Impressions: Service Date/Time: Friday, December 02, 2016 17:19 - CONCLUSION: 1. Common bile duct upper limits of normal caliber for a patient this age. No duct stone. 2. Several stones in the gallbladder measuring up to 14 mm in size. No evidence of acute cholecystitis Jasper Springer MD Chest CT 12/02/16 0000 Signed Impressions: Service Date/Time: Friday, December 02, 2016 10:46 - CONCLUSION: 1. Small bilateral pleural effusions with adjacent alveolar consolidations (right slightly worse than left) consistent with atelectasis and/or pneumonia. Clinical correlation is recommended. 2. Patchiness within the right upper lobe consistent with possible pneumonia. Clinical correlation is recommended. 3. Cardiomegaly, coronary artery calcifications and mitral annulus calcifications. 4. 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 5. Cholelithiasis. 6. Multiple simple and complex renal cysts bilaterally. 7. Degenerative changes and scoliosis of the thoracolumbar spine. 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 Anuradha Anthony MD Objective Remarks GENERAL: Well-nourished, well-developed patient. Sedated and intubated SKIN: Warm and dry. HEAD: Normocephalic. EYES: No scleral icterus. No injection or drainage. NECK: Supple, trachea midline. No JVD or lymphadenopathy. CARDIOVASCULAR: Regular rate and rhythm without murmurs, gallops, or rubs. RESPIRATORY: Breath sounds equal bilaterally. No accessory muscle use. GASTROINTESTINAL: Abdomen soft, non-tender, nondistended. MUSCULOSKELETAL: No cyanosis, or edema. 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 Pulm: Continue with vent support keep sat >92%. Decrease PEEP:5 Bronchodilators, ICU vent bundle, Solumederol 40mg Q8 Start SBT daily as christophe. Pulm is fooling- Dr. Munoz. CXR this morning showed improvements in pulm edema CV: Monitor HR and BP keep MAP>65mmHg. On Norvasc 5mg daily : Monitor renal function, I/O's, electrolytes replacement per protocol; GI: On Pepcid for GI prophylaxis, Continue with tube feeds- 2cal HN@55ml/hr ID: Continue with abx ( Aztreonam, Azithromycin, Flagyl)monitor for signs of infections ( Fever, WBC) Strep pneumonia and Legionella urinary Ag negative. Heme: Monitor CBC Endo: SSI for glycemic control GI prophylaxis- on Pepcid DVT Protonix- will d/c Heparin SQ and resume Xarelto 20mg daily ( home med) Doppler US LE: Nonocclusive DVT within the posterior tibial veins bilaterally CCT 30 mins Eve Davis MD Dec 03, 2016 08:32
[2016-12-03] MEDS: CYCLOBENZAPRINE HCL 10 MG TAB PO SCH ×3 (08:56→17:32)
[2016-12-03] MEDS: amLODIPine BESYLATE 5 MG TAB PO SCH (08:56)
[2016-12-03] MEDS: FAMOTIDINE 20 MG/2 ML VIAL IV PUSH SCH (08:56)
[2016-12-03] MEDS: GABAPENTIN 300 MG CAP PO SCH ×3 (08:56→17:33)
[2016-12-03] MEDS: DOCUSATE SODIUM 50 MG/SENNA 8.6 MG TAB PO SCH ×2 (08:56→21:00)
[2016-12-03] MEDS: LACTOBACILLUS ACIDOPHILUS TAB PO SCH ×2 (08:56→21:36)
[2016-12-03] MEDS: SODIUM CHLORIDE 0.9% FLUSH 10 ML FLUSH SCH ×2 (08:57→21:00)
--- NOTE | 2016-12-03 11:29 | RADRPT ---
EXAM DATE/TIME: 12/03/2016 09:17 [facility] COMPARISON: US LEG BILATERAL VENOUS DOPPLER, August 26, 2015, 11:26. INDICATIONS : Bilateral leg swelling. MEDICAL HISTORY : Congestive heart failure. Hypercholesterolemia. Chronic obstructive pulmonary disease. Thyroid diseas e. Hypertension. Renal insufficiency. Arthritis. Osteoporosis. Radiation therapy. Deep vein thrombosi s. SURGICAL HISTORY : Tonsillectomy.Tubal ligation. Cataract surgery. ENCOUNTER: Initial ACUITY: 2 day PAIN SCORE: Non-responsive LOCATION: Bilateral legs. TECHNIQUE: Venous ultrasound of the left and right leg was performed from the inguinal ligament to the proximal calf. Real-time, color Doppler and spectral tracing, compression and augmentation techniques were us ed. FINDINGS: RIGHT LEG: Nonocclusive deep venous thrombus is noted within the posterior tibial veins. Normal color flow is no jamar within the right common femoral, superficial femoral, popliteal and peroneal veins. LEFT LEG: Nonocclusive deep venous thrombus is noted within the posterior tibial veins. Normal color flow is no jamar within the right common femoral, superficial femoral, popliteal and peroneal veins. CONCLUSION: Nonocclusive deep venous thrombus within the posterior tibial veins bilaterally. Galen Pierre MD on December 03, 2016 at 11:26 Board Certified Radiologist. This report was verified electronically.
[2016-12-03] MEDS: AZITHROMYCIN INJ 500 MG in SODIUM CHLOR 0.9% 250 ML INJ 250 ML IV SCH (13:33)
[2016-12-03] MEDS: RIVAROXABAN 20 MG TAB PO SCH (13:52)
--- NOTE | 2016-12-03 18:58 | HHI.PR ---
Subjective Remarks Sedated and on vent support. Will Open eyes FIO2 at 45 %. PEEP +7. Good output. Improved overall. Objective Vital Signs Date Time Temp Pulse Resp B/P Pulse Ox O2 Delivery O2 Flow Rate FiO2 12/03/16 18:00 66 12/03/16 17:00 66 12/03/16 17:00 66 12/03/16 16:31 66 12/03/16 16:31 66 12/03/16 16:00 63 17 111/65 94 12/03/16 16:00 63 12/03/16 16:00 63 12/03/16 16:00 40 12/03/16 16:00 63 12/03/16 15:30 64 12/03/16 15:30 64 17 106/61 94 12/03/16 15:30 64 12/03/16 15:30 64 12/03/16 15:11 94 40 12/03/16 15:00 64 16 109/65 95 12/03/16 15:00 64 12/03/16 15:00 64 12/03/16 15:00 64 12/03/16 14:30 73 12/03/16 14:30 73 12/03/16 14:30 73 17 128/68 94 12/03/16 14:30 73 12/03/16 14:00 73 12/03/16 14:00 73 12/03/16 14:00 73 12/03/16 14:00 73 12/03/16 14:00 73 21 140/69 95 12/03/16 13:30 67 25 130/66 97 12/03/16 13:30 67 12/03/16 13:30 67 12/03/16 13:30 67 12/03/16 13:30 67 25 130/66 97 12/03/16 13:30 67 12/03/16 13:00 68 12/03/16 13:00 68 22 129/65 96 12/03/16 13:00 68 12/03/16 13:00 68 12/03/16 13:00 68 22 129/65 96 12/03/16 13:00 68 12/03/16 12:30 62 12/03/16 12:30 62 12/03/16 12:30 62 16 112/61 97 12/03/16 12:30 62 12/03/16 12:30 62 16 112/61 97 6/14/17 12:30 62 1417 12:00 64 17 12:00 45 17 12:00 64 14 121/58 97 17 12:00 64 1417 12:00 69 1417 12:00 64 17 12:00 64 17 12:00 64 14 121/58 97 17 11:35 96 45 1417 11:31 67 14/17 11:31 67 14/17 11:31 67 15 120/59 95 14/17 11:31 67 15 120/59 95 14/17 11:31 67 14/17 11:31 67 1417 11:31 67 1417 11:00 73 17 11:00 73 19 135/73 97 14/17 11:00 73 19 135/73 97 1417 11:00 73 1417 11:00 73 1417 11:00 73 1417 11:00 73 1417 10:30 83 78 132/80 96 14/17 10:30 83 14/17 10:30 83 1417 10:30 83 78 132/80 96 14/17 10:30 83 14/17 10:30 83 1417 10:30 83 1417 10:00 73 1417 10:00 73 24 131/63 96 1417 10:00 73 1417 10:00 78 1417 10:00 73 24 131/63 96 14/17 10:00 73 1417 10:00 45 1417 10:00 73 1417 10:00 73 1417 09:30 71 25 140/72 95 14/17 09:30 71 25 140/72 95 14/17 09:30 71 14/17 09:30 71 14/17 09:30 71 25 140/72 95 14/17 09:30 71 1417 09:30 71 14/17 09:30 71 12/03/16 09:00 72 23 140/68 96 12/03/16 09:00 72 12/03/16 09:00 72 23 140/68 96 12/03/16 09:00 72 12/03/16 09:00 72 23 140/68 96 12/03/16 09:00 72 12/03/16 09:00 72 12/03/16 09:00 72 12/03/16 08:30 70 12/03/16 08:30 70 23 140/66 96 12/03/16 08:30 96 45 12/03/16 08:30 70 12/03/16 08:30 70 12/03/16 08:30 70 12/03/16 08:30 70 12/03/16 08:30 70 23 140/66 96 12/03/16 08:30 70 23 140/66 96 12/03/16 08:00 70 12/03/16 08:00 70 12/03/16 08:00 70 32 146/71 97 12/03/16 08:00 70 12/03/16 08:00 70 12/03/16 08:00 70 12/03/16 08:00 45 12/03/16 08:00 70 32 146/71 97 12/03/16 08:00 70 32 146/71 97 12/03/16 06:00 60 12/03/16 06:00 45 12/03/16 05:30 62 12/03/16 05:00 66 12/03/16 04:11 96 40 12/03/16 04:00 40 12/03/16 04:00 97.7 57 16 110/61 95 12/03/16 04:00 57 12/03/16 03:31 55 16 125/65 97 12/03/16 03:31 55 12/03/16 03:00 56 12/03/16 03:00 56 16 94/56 96 12/03/16 02:30 58 16 115/61 96 12/03/16 02:30 58 12/03/16 02:00 62 12/03/16 02:00 62 16 129/70 95 12/03/16 01:30 62 16 138/74 96 12/03/16 01:30 62 12/03/16 01:09 94 40 12/03/16 01:00 55 20 127/69 97 12/03/16 01:00 55 12/03/16 00:31 56 16 137/79 97 12/03/16 00:00 53 12/03/16 00:00 40 12/03/16 00:00 97.7 53 23 121/77 97 12/02/16 23:30 54 12/02/16 23:30 54 16 111/65 96 12/02/16 23:00 57 16 103/65 96 12/02/16 23:00 57 12/02/16 22:31 61 18 128/75 99 12/02/16 22:31 61 12/02/16 22:08 97 40 12/02/16 22:00 65 27 166/80 97 12/02/16 22:00 65 12/02/16 21:30 53 16 118/71 98 12/02/16 21:30 53 12/02/16 21:00 53 16 105/68 98 12/02/16 21:00 53 12/02/16 20:30 53 12/02/16 20:30 54 16 105/66 97 12/02/16 20:16 97 40 12/02/16 20:00 54 12/02/16 20:00 40 12/02/16 20:00 97.6 54 16 123/73 97 12/02/16 19:30 53 16 117/75 97 12/02/16 19:30 53 12/02/16 19:00 51 16 107/67 97 12/02/16 19:00 51 I/O 12/02/16 12/02/16 12/02/16 12/03/16 12/03/16 12/03/16 07:00 15:00 23:00 07:00 15:00 23:00 Intake Total 1115 ml 910 ml 930 ml 536 ml 1264 ml Output Total 450 ml 725 ml 675 ml 225 ml 550 ml Balance 665 ml 185 ml 255 ml 311 ml 714 ml Intake IV Total 1055 ml 790 ml 772 ml 321 ml 675 ml Tube Feeding 20 ml 98 ml 215 ml 469 ml Tube Irrigant 100 ml 60 ml Other 60 ml 120 ml Output Urine Total 450 ml 725 ml 675 ml 225 ml 550 ml # Bowel Movements 0 0 3 Result Diagram: 12/03/16 01512/03/16 015 Objective Remarks GENERAL: This well-built elderly lady who is intubated, poorly responsive and assisting the ventilator. HEENT: Head normocephalic. Pupils are reactive. Tongue is moist. Throat is injected. NECK: Supple. No bruits or thyroid enlargement. CHEST: Decreased breath sounds at the bases with occasional wheezes throughout both lung mcgill and few basilar crackles. CARDIOVASCULAR: Heart sounds are irregular S1-S2 with no murmur. No S3. ABDOMEN: Soft, protuberant without masses. No organomegaly or tenderness. EXTREMITIES: No lesions. No edema. NEUROLOGIC: Reflexes are 1+ with no gross motor deficits. RECTAL: Exam is deferred. SKIN: No lesions are noted. Assessment and Plan Assessment and Plan IMPRESSION 1. Acute respiratory failure. 2. COPD with chronic bronchitis and emphysema. 3. CHF with pleural effusions. 4. History of hypertension. 5. Atrial arrhythmias. 6. History of DVT. Plan : 1. Wean Vent to CPAP/PSV 5/12, FIO2 40 % 2. Cont Antibiotics, Zithro and Azactam 3. Nebs qid , duoneb 4. Solumedrol 40 mg IV q8h 5. Continue Diuretic daily. 6. Will Rpt respiratory parameters 7. CBc,CXR ,BMP in am Prabhu Munoz MD Dec 03, 2016 18:58
[2016-12-03] MEDS: FLUTICASONE 100 MCG/VILANTEROL 25 MCG INHALER INH SCH (21:00)
[2016-12-03] MEDS ORDERED: FAMOTIDINE 20 MG/2 ML VIAL IV PUSH SCH (21:00)
[2016-12-03] MEDS: POLYETHYLENE GLYCOL 17 GM PKG PO SCH (21:00)
[2016-12-04] VITALS (28 sets, daily range): BP systolic 90–133; BP diastolic 52–75; PULSE 54–67; RESP 11–24; TEMP 97.9–98.1; O2SAT 90–98
[2016-12-04] MEDS: RESP: ALBUTEROL 2.5 MG/IPRATROPIUM 0.5 MG NEB (SCH) INH ×4 (01:28→20:36)
[2016-12-04] MEDS: CHLORHEXIDINE GLUCONATE 2 % 1 PACK (2 CLOTHS) TOP SCH (01:42)
[2016-12-04] MEDS: AZTREONAM INJ 2,000 MG in SODIUM CHLORIDE 0.9% INJ 100 ML IV SCH ×3 (01:42→17:50)
[2016-12-04] MEDS: metroNIDAZOLE 500 MG INJ 100 ML IV SCH ×4 (02:25→21:46)
[2016-12-04] MEDS: PROPOFOL 1000 MG/100 ML INJ 100 ML IV SCH ×4 (02:25→21:59)
--- NOTE | 2016-12-04 04:56 | RADRPT ---
EXAM DATE/TIME: 12/04/2016 03:14 [facility] COMPARISON: CHEST SINGLE AP, December 03, 2016, 3:50. CT THORAX W/O CONTRAST, December 02, 2016, 10:46. INDICATIONS : Shortness of breath, possible pulmonary disease. MEDICAL HISTORY : Chronic obstructive pulmonary disease. Deep venous thrombosis. Hypertension. Cardiovascular disea se. SURGICAL HISTORY : None. ENCOUNTER: Subsequent ACUITY: 4 - 6 days PAIN SCORE: Non-responsive. LOCATION: Bilateral chest FINDINGS: ET tube, and NG tube have not changed. Right basilar opacity is present may be due to a combination o f consolidation and or pleural effusion. The examination is slightly limited due to motion artifact. CONCLUSION: Right basilar opacity is present may be due to a combination of consolidation and or pleural effusion . Anuradha Anthony MD on December 04, 2016 at 4:54 Board Certified Radiologist. This report was verified electronically.
[2016-12-04] MEDS: methylPREDNISolone SOD SUCC 40 MG/1 ML VIAL IV SCH ×3 (05:28→21:46)
[2016-12-04] MEDS: INSULIN NovoLIN REGULAR SUPPLEMENTAL SCALE SQ SCH ×5 (05:31→23:34)
[2016-12-04 06:23] LABS: AUTOMATED NEUTROPHIL # 8.1 TH/MM3 (1.8-7.7); BASOPHIL % 0.3 % (0.0-2.0); HEMATOCRIT 30.6 % (35.0-46.0); HEMO FLAGS DIFF FINAL; LYMPH % 9.2 % (9.0-44.0); LYMPHOCYTE # 0.9 TH/MM3 (1.0-4.8); MEAN CELL VOLUME 95.2 FL (80.0-100.0); MEAN CORPUSCULAR HEMOGLOBIN 30.4 PG (27.0-34.0); MONO % 4.2 % (0.0-8.0); NEUT % 86.3 % (16.0-70.0); PLATELET COUNT 179 TH/MM3 (150-450); RED BLOOD COUNT 3.22 MIL/MM3 (4.00-5.30); RED CELL DISTRIBUTION WIDTH 17.7 % (11.6-17.2); WHITE BLOOD COUNT 9.4 TH/MM3 (4.0-11.0)
[2016-12-04 06:44] LABS: CALCIUM-PROTEIN CORRECTED 8.5 MG/DL (8.5-10.1); POTASSIUM 3.7 MEQ/L (3.5-5.1); TOTAL BILIRUBIN ADULT 0.2 MG/DL (0.2-1.0)
[2016-12-04] MEDS: FERROUS SULFATE 325 MG (65 MG ELEMENTAL IRON) TAB PO SCH (08:00)
[2016-12-04] MEDS: LACTOBACILLUS ACIDOPHILUS TAB PO SCH ×2 (08:18→19:55)
[2016-12-04] MEDS: CYCLOBENZAPRINE HCL 10 MG TAB PO SCH ×3 (08:18→17:50)
[2016-12-04] MEDS: GABAPENTIN 300 MG CAP PO SCH ×3 (08:18→17:50)
[2016-12-04] MEDS: amLODIPine BESYLATE 5 MG TAB PO SCH (08:18)
[2016-12-04] MEDS: RIVAROXABAN 20 MG TAB PO SCH (08:18)
[2016-12-04] MEDS: DOCUSATE SODIUM 50 MG/SENNA 8.6 MG TAB PO SCH ×2 (08:18→19:55)
--- NOTE | 2016-12-04 08:18 | HHI.CCPN ---
Subjective Remarks/Hospital Course 76-year-old female presents with a history of shortness of breath that started at home. She has also altered mental status. Normally patient is awake with eyes open and answers questions right away. EMS reports pt received a muscle relaxer just prior to their arrival. She has received albuterol x 2 en route with however her CO2 Climbing on the BiPAP machine and she became more lethargic with less responsiveness. She was intubated in the emergency department by ER attending for an airway protection. 12/03 Patient is sedated with Diprivan and intubated. Afebrile. On ACV with PEEP: 10, FIO2 45. Subjective 12/04: Afebrile. Arousable on propofol at 50 mcg/kg/m. PEEP is currently around 7. Tolerating tube feeds. Positive BM. Objective Vital Signs Date Time Temp Pulse Resp B/P Pulse Ox O2 Delivery O2 Flow Rate FiO2 12/04/16 04:09 95 40 12/04/16 04:00 98.1 62 22 117/67 12/02/16 01:16 Ventilator 12/01/16 22:15 6 Intake and Output 12/03/16 12/03/16 12/04/16 08:00 16:00 00:00 Intake Total 536 ml 1264 ml 995 ml Output Total 225 ml 550 ml 415 ml Balance 311 ml 714 ml 580 ml Result Diagram: 12/04/16 0528 12/04/16 0528 Other Results Microbiology Date/Time Procedure Status Source Growth 12/02/16 04:42 Gram Stain Received Sputum Expectorated Sputum Pending 12/02/16 04:42 Sputum Culture Received Sputum Expectorated Sputum Pending 12/02/16 00:51 Gram Stain - Final Resulted Sputum Expectorated Sputum 12/02/16 00:51 Sputum Culture - Preliminary Resulted Sputum Expectorated Sputum MODERATE GROWTH NORMAL RESPIRATORY FL... 12/01/16 21:55 Aerobic Blood Culture - Preliminary Resulted Blood Peripheral NO GROWTH IN 2 DAYS 12/01/16 21:55 Anaerobic Blood Culture - Preliminary Resulted Blood Peripheral NO GROWTH IN 2 DAYS 12/01/16 21:46 Aerobic Blood Culture Received Blood Peripheral Pending 12/01/16 21:46 Anaerobic Blood Culture Received Blood Peripheral Pending 12/01/16 20:00 Streptococcus pneumoniae Antigen (M - Final Complete Urine Catheterized Urine PRESUMPTIVE NEGATIVE FOR STREPTOCOCCU... 12/01/16 20:00 Legionella Antigen - Final Complete Urine Clean Catch PRESUMPTIVE NEGATIVE FOR LEGIONELLA P... Imaging Last Impressions Chest X-Ray 12/04/16 0000 Signed Impressions: Service Date/Time: November 03:14 - CONCLUSION: Right basilar opacity is present may be due to a combination of consolidation and or pleural effusion. Anuradha Anthony MD Lower Extremity Ultrasound 12/03/16 0000 Signed Impressions: Service Date/Time: Saturday, December 03, 2016 09:17 - CONCLUSION: Nonocclusive deep venous thrombus within the posterior tibial veins bilaterally. Galen Pierre MD Liver Ultrasound 12/02/16 0000 Signed Impressions: Service Date/Time: Friday, December 02, 2016 17:19 - CONCLUSION: 1. Common bile duct upper limits of normal caliber for a patient this age. No duct stone. 2. Several stones in the gallbladder measuring up to 14 mm in size. No evidence of acute cholecystitis Jasper Springer MD Chest CT 12/02/16 0000 Signed Impressions: Service Date/Time: Friday, December 02, 2016 10:46 - CONCLUSION: 1. Small bilateral pleural effusions with adjacent alveolar consolidations (right slightly worse than left) consistent with atelectasis and/or pneumonia. Clinical correlation is recommended. 2. Patchiness within the right upper lobe consistent with possible pneumonia. Clinical correlation is recommended. 3. Cardiomegaly, coronary artery calcifications and mitral annulus calcifications. 4. 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 5. Cholelithiasis. 6. Multiple simple and complex renal cysts bilaterally. 7. Degenerative changes and scoliosis of the thoracolumbar spine. 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 Anuradha Anthony MD Objective Remarks GENERAL: 76-year-old female, critically ill currently orotracheally intubated SKIN: Warm and dry. No rash HEAD: Normocephalic. Atraumatic EYES:. Pupils around 2 mm bilaterally and reactive to 3 mm. No scleral icterus. No injection or drainage. NECK: Supple, trachea midline. No JVD or lymphadenopathy. CARDIOVASCULAR: Regular rate and rhythm. S1, S2. No S4. Without murmurs, gallops, or rubs. RESPIRATORY: Few scattered crackles appreciated in the bases bilaterally.. No wheezing GASTROINTESTINAL: Abdomen soft, non-tender, nondistended. I Pollock bowel sounds are appreciated MUSCULOSKELETAL: No significant peripheral edema. Negative Homans sign NEURO: Intubated and sedated A/P Assessment and Plan Plan Neuro/Psych: Fibromyalgia History of right posterior frontal lobe CVA Chronic benzodiazepine use Chronic opiate use Patient currently on Diprivan at 50 mcg/kg minutes/fentanyl drip just ordered for sedation/analgesia while intubated Goal of RA SS -[address] head on admission revealed old cephalization of the right posterior frontal lobe. Resumed Neurontin 600 mill grams by mouth 3 times a day/home medication Resumed Flexeril 5 mill grams 3 times a day Daily and Xanax or 0.5 mg 3 times a day anxiety Holding home medication Percocets for pain while on fentanyl drip Pulm: Acute hypoxemic respiratory failure History COPD Community acquired pneumonia ACV 16/500/7/40 Ventilator bundle Breo 100/25 one inhalation at night continue/home medication Bronchodilators every 6 hours with Xopenex every 2 hours. Dyspnea Solumederol 40mg Q8 Start SBT daily as christophe. Pulm is following- Dr. Munoz. 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 On Norvasc 5mg daily and metoprolol 12.5 mg by mouth twice a day Echocardiogram 10/06 revealed EF 60%. Left atrial dilatation. No regional wall motion abnormality. Noted CT chest revealed 4.5 fusiform dilatation of the aorta at the retrocardiac with cardiomegaly Holding home medication spironolactone 12.5 mg by mouth daily/home medication /FEN: Monitor renal function, I/O's, electrolytes replacement per protocol; GI: Cholelithiasis Hypoalbuminemia On Pepcid for GI prophylaxis, Continue with tube feeds- Jevity 1.5@55ml/hr Lynn-Colace for bowel regimen ID: CAP Continue with abx (Aztreonam, Azithromycin, Flagyl)monitor for signs of infections ( Fever, WBC) Strep pneumonia and Legionella urinary Ag negative. Pertinent cultures 12/02 - sputum - negative 12/01 - blood cultures 2 - no growth 12/01 - urine - negative Check influenza Heme: Normocytic anemia Chronic Xarelto use Bilateral posterior tibial nonocclusive DVT Monitor CBC On Xarelto 20 mg by mouth daily On iron sulfate 325 mg by mouth 3 times a day Endo: Hypothyroidism SSI for glycemic control GI prophylaxis- on Pepcid DVT Protonix- Xarelto 20mg daily ( home med) Critical Care: The total critical care time was 35 minutes. Time to perform other separately billable procedures was not included in the critical care time. Nato Browne MD Dec 04, 2016 08:18 billable procedures was not included in the critical care time. Nato Browne MD Dec 04, 2016 08:18
[2016-12-04] MEDS: fentaNYL DRIP 250 ML IV SCH (08:53)
[2016-12-04] MEDS: FAMOTIDINE 20 MG TAB NG SCH (08:53)
[2016-12-04] MEDS: SODIUM CHLORIDE 0.9% FLUSH 10 ML FLUSH SCH ×2 (08:57→19:55)
--- NOTE | 2016-12-04 12:02 | HHI.PR ---
Subjective Remarks Sedated and on vent support. FIO2 at 50 %. PEEP +7. Has DVT of legs Good output. Improved overall. Objective Vital Signs Date Time Temp Pulse Resp B/P Pulse Ox O2 Delivery O2 Flow Rate FiO2 12/04/16 10:00 61 12/04/16 09:00 64 12/04/16 09:00 64 12/04/16 09:00 64 14 129/66 96 12/04/16 08:35 96 40 12/04/16 08:35 40 12/04/16 08:00 64 12/04/16 08:00 64 12/04/16 08:00 40 12/04/16 08:00 64 20 118/59 94 12/04/16 04:09 95 40 12/04/16 04:00 40 12/04/16 04:00 98.1 62 22 117/67 95 12/04/16 04:00 62 12/04/16 03:00 60 20 106/59 95 12/04/16 03:00 60 12/04/16 02:00 60 19 106/62 95 12/04/16 02:00 60 12/04/16 01:02 93 45 12/04/16 01:00 67 24 123/68 93 12/04/16 01:00 67 12/04/16 00:00 98.0 63 19 133/75 94 12/04/16 00:00 40 12/04/16 00:00 63 12/03/16 23:00 63 12/03/16 23:00 63 17 103/60 93 12/03/16 22:00 62 14 109/63 94 12/03/16 22:00 62 12/03/16 21:22 95 40 12/03/16 21:00 64 12/03/16 21:00 64 18 109/62 95 12/03/16 20:00 66 12/03/16 20:00 40 12/03/16 20:00 98.3 66 19 107/62 95 12/03/16 19:31 67 20 113/60 94 12/03/16 19:31 67 12/03/16 19:04 100 40 12/03/16 19:00 74 12/03/16 19:00 74 43 132/78 93 12/03/16 18:30 71 26 129/72 95 12/03/16 18:00 72 24 140/68 93 12/03/16 18:00 66 12/03/16 17:30 71 32 130/72 94 12/03/16 17:00 66 17 122/66 94 12/03/16 17:00 66 17 17:00 66 1417 16:31 66 1417 16:31 66 12/03/16 16:00 63 17 111/65 94 12/03/16 16:00 63 12/03/16 16:00 63 12/03/16 16:00 40 1417 16:00 63 1417 15:30 64 1417 15:30 64 17 106/61 94 1417 15:30 64 1417 15:30 64 12/03/16 15:11 94 40 12/03/16 15:00 64 16 109/65 95 12/03/16 15:00 64 12/03/16 15:00 64 12/03/16 15:00 64 12/03/16 14:30 73 14 14:30 73 1417 14:30 73 17 128/68 94 12/03/16 14:30 73 1417 14:00 73 12/03/16 14:00 73 12/03/16 14:00 73 12/03/16 14:00 73 12/03/16 14:00 73 21 140/69 95 12/03/16 13:30 67 25 130/66 97 14 13:30 67 12/03/16 13:30 67 14 13:30 67 12/03/16 13:30 67 25 130/66 97 1417 13:30 67 1417 13:00 68 14 13:00 68 22 129/65 96 1417 13:00 68 12/03/16 13:00 68 12/03/16 13:00 68 22 129/65 96 12/03/16 13:00 68 1417 12:30 62 1417 12:30 62 14/17 12:30 62 16 112/61 97 14 12:30 62 1417 12:30 62 16 112/61 97 14/17 12:30 62 I/O 12/03/16 12/03/16 12/03/16 12/04/16 12/04/16 12/04/16 07:00 15:00 23:00 07:00 15:00 23:00 Intake Total 536 ml 1264 ml 995 ml 818 ml Output Total 225 ml 550 ml 415 ml 215 ml Balance 311 ml 714 ml 580 ml 603 ml Intake IV Total 321 ml 675 ml 506 ml 459 ml Tube Feeding 215 ml 469 ml 429 ml 359 ml Other 120 ml 60 ml Output Urine Total 225 ml 550 ml 415 ml 215 ml # Bowel Movements 0 3 0 0 Result Diagram: 12/04/1652712/04/16527 Objective Remarks GENERAL: This well-built elderly lady who is intubated, poorly responsive and assisting the ventilator. HEENT: Head normocephalic. Pupils are reactive. Tongue is moist. Throat is injected. NECK: Supple. No bruits or thyroid enlargement. CHEST: Decreased breath sounds at the bases with occasional wheezes throughout both lung mcgill and bi basilar crackles. CARDIOVASCULAR: Heart sounds are irregular S1-S2 with no murmur. No S3. ABDOMEN: Soft, protuberant without masses. No organomegaly or tenderness. EXTREMITIES: No lesions. 1 + edema. NEUROLOGIC: Reflexes are 1+ with no gross motor deficits. RECTAL: Exam is deferred. SKIN: No lesions are noted. Assessment and Plan Assessment and Plan IMPRESSION 1. Acute respiratory failure. 2. COPD with chronic bronchitis and emphysema. 3. CHF with pleural effusions. 4. History of hypertension. 5. Atrial arrhythmias. 6. History of DVT. Plan : 1. Place on A/C rate 10 ,FIO2 45% 2. Cont Antibiotics, Zithro and Azactam 3. Nebs qid , duoneb 4. Solumedrol 40 mg IV q12h 5. Continue Diuretic daily. 6. Tube feeds at 50 CC 7. CBC,CXR ,BMP in am 8. Lasix 20 mg daily 9. Cont Xarelto 20 mg Prabhu Munoz MD Dec 04, 2016 12:02
[2016-12-04] MEDS: FUROSEMIDE 20 MG/2 ML VIAL IV PUSH SCH (12:32)
[2016-12-04] MEDS: AZITHROMYCIN INJ 500 MG in SODIUM CHLOR 0.9% 250 ML INJ 250 ML IV SCH (14:32)
[2016-12-04] MEDS ORDERED: SODIUM CHLOR 0.9% 1000 ML INJ 1,000 ML IV ONE (16:45)
--- NOTE | 2016-12-04 19:29 | RADRPT ---
EXAM DATE/TIME: 12/04/2016 17:52 [facility] COMPARISON: US KIDNEY/RENAL/BLADDER, September 19, 2013, 9:24. INDICATIONS : Increased BUN/creatinine. MEDICAL HISTORY : Congestive heart failure. Hypercholesterolemia. Carcinoma, thyroid. Thyroid disease. DVT. COPD. Dsypn ea. Renal insuffiency. Fibromyalgia. Arthritis. HTN. Osteoporosis. Anticoagulant therapy, Xarelto. SURGICAL HISTORY : Tonsillectomy. Tubal ligation. Cataract surgery. Radiation therapy. ENCOUNTER: Initial ACUITY: 1 day PAIN SCORE: Nonresponsive. LOCATION: Bilateral flank MEASUREMENTS: RIGHT KIDNEY: 11.8 x 5.7 x 5.1 cm LEFT KIDNEY: 12.6 x 5.7 x 5.1 cm FINDINGS: Diffusely increased parenchymal echogenicity seen of both kidneys. There are numerous bilateral cysts measuring up to 11 cm on the right and 10 cm on the left. No hydronephrosis. Urinary bladder decompressed with a Fuentes and grossly unremarkable. Stones are incidentally seen in the gallbladder. CONCLUSION: 1. Numerous cysts and chronic parenchymal disease of both kidneys. No evidence of obstructive uropath y or other acute abnormality. 2. Fuentes catheter present. Urinary bladder grossly unremarkable. 3. Cholelithiasis incidentally noted. Jasper Springer MD on December 04, 2016 at 19:25 Board Certified Radiologist. This report was verified electronically.
[2016-12-04 19:47] LABS: BICARBONATE 25.4 MEQ/L (21.0-32.0)
[2016-12-04] MEDS: CHLORHEXIDINE 0.12% (ORAL KIT) 15 ML CUP MT SCH (19:54)
[2016-12-04] MEDS: FERROUS SULFATE 300 MG /5ML UDC PO SCH (19:55)
[2016-12-04] MEDS: POLYETHYLENE GLYCOL 17 GM PKG PO SCH (19:55)
[2016-12-04 20:44] LABS: CALCIUM-PROTEIN CORRECTED 7.7 MG/DL (8.5-10.1)
[2016-12-04] MEDS: ALPRAZolam 0.25 MG TAB PO PRN (21:59)
[2016-12-05] VITALS (32 sets, daily range): BP systolic 100–134; BP diastolic 55–73; PULSE 56–77; RESP 11–25; TEMP 97.5–98.3; O2SAT 92–100
[2016-12-05] MEDS: AZTREONAM INJ 2,000 MG in SODIUM CHLORIDE 0.9% INJ 100 ML IV SCH ×3 (01:51→16:36)
[2016-12-05] MEDS: RESP: ALBUTEROL 2.5 MG/IPRATROPIUM 0.5 MG NEB (SCH) INH ×4 (02:19→20:59)
[2016-12-05] MEDS: fentaNYL DRIP 250 ML IV SCH ×2 (03:32→20:30)
[2016-12-05] MEDS: metroNIDAZOLE 500 MG INJ 100 ML IV SCH ×4 (03:32→20:42)
[2016-12-05] MEDS: CHLORHEXIDINE GLUCONATE 2 % 1 PACK (2 CLOTHS) TOP SCH (03:33)
[2016-12-05] MEDS: methylPREDNISolone SOD SUCC 40 MG/1 ML VIAL IV SCH ×3 (05:30→20:42)
--- NOTE | 2016-12-05 05:30 | RADRPT ---
EXAM DATE/TIME: 12/05/2016 04:18 [facility] COMPARISON: CHEST SINGLE AP, December 04, 2016, 3:14. INDICATIONS : Evaluate for pneumonia. MEDICAL HISTORY : Chronic obstructive pulmonary disease. Deep venous thrombosis. Hypertension. Cardiovascular disease. SURGICAL HISTORY : None. ENCOUNTER: Subsequent ACUITY: 4 - 6 days PAIN SCORE: Non-responsive. LOCATION: chest FINDINGS: The cardiac silhouette is enlarged in transverse diameter. There are findings of congestive heart karley lure with interstitial and alveolar opacity bilaterally. There is left lower lobe atelectasis versus pneumonia. CONCLUSION: 1. Cardiomegaly and findings of congestive heart failure. The findings have worsened when compared wi th the prior examination. Justin Mace MD on December 05, 2016 at 5:28 Board Certified Radiologist. This report was verified electronically.
[2016-12-05] MEDS: INSULIN NovoLIN REGULAR SUPPLEMENTAL SCALE SQ SCH ×3 (05:31→16:34)
[2016-12-05 07:06] LABS: AUTOMATED NEUTROPHIL # 9.2 TH/MM3 (1.8-7.7); BASOPHIL % 0.2 % (0.0-2.0); HEMATOCRIT 31.9 % (35.0-46.0); HEMO FLAGS AUTO DIFF; LYMPH % 6.1 % (9.0-44.0); LYMPHOCYTE # 0.6 TH/MM3 (1.0-4.8); MEAN CELL VOLUME 96.3 FL (80.0-100.0); MEAN CORPUSCULAR HEMOGLOBIN 30.3 PG (27.0-34.0); MEAN CORPUSCULAR HGB CONC 31.4 % (32.0-36.0); MONO % 3.8 % (0.0-8.0); NEUT % 89.9 % (16.0-70.0); PLATELET COUNT 156 TH/MM3 (150-450); RED BLOOD COUNT 3.31 MIL/MM3 (4.00-5.30); RED CELL DISTRIBUTION WIDTH 18.3 % (11.6-17.2); WHITE BLOOD COUNT 10.3 TH/MM3 (4.0-11.0)
[2016-12-05] MEDS ORDERED: SODIUM CHLOR 0.9% 1000 ML INJ 1,000 ML IV ONE (07:15)
[2016-12-05] MEDS ORDERED: ALBUMIN HUMAN 25% 25 GM/100 ML BAGP IV ONE (07:15)
[2016-12-05] MEDS ORDERED: DEXTROSE 50% IN WATER 50 ML VIAL(D50) IV PUSH ONE ×2 (07:15→16:30)
[2016-12-05] MEDS ORDERED: SODIUM BICARBONATE 8.4% SOLN 50 MEQ/50 ML VIAL SLOW IVP ONE (07:15)
[2016-12-05] MEDS ORDERED: SODIUM POLYSTYRENE SULFONATE SUSP 15 GM/60 ML CUP PO ONE ×2 (07:15→16:30)
[2016-12-05] MEDS ORDERED: CALCIUM GLUCONATE 10% 1 GM/10 ML VIAL SLOW IVP ONE ×2 (07:15→16:30)
[2016-12-05] MEDS ORDERED: INSULIN HUMAN REGULAR 1,000 UNITS/10 ML VIAL IV PUSH ONE ×2 (07:15→16:45)
[2016-12-05 07:23] LABS: BICARBONATE 32.3 MEQ/L (21.0-32.0); MAGNESIUM 2.5 MG/DL (1.5-2.5); POTASSIUM 4.6 MEQ/L (3.5-5.1)
[2016-12-05 07:29] LABS: CALCIUM-PROTEIN CORRECTED 7.8 MG/DL (8.5-10.1); TOTAL BILIRUBIN ADULT 0.2 MG/DL (0.2-1.0)
[2016-12-05 07:33] LABS: BANDS 7 % (0-6); METAMYELOCYTES 1 % (0-1); MYELOCYTES 1 % (0-0); NEUTROPHIL # MANUAL DIFF 8.5 TH/MM3 (1.8-7.7); POLYS (SEG NEUTROPHILS) 74 % (16-70); SCAN/DIFF FINAL DIFF MANUAL; WBC DIFF SAMPLE 100
[2016-12-05 07:34] LABS: OVALOCYTES 1+ (NORMAL); PLATELET ESTIMATE SMEAR NORMAL (NORMAL); PLATELET MORPHOLOGY NORMAL (NORMAL)
[2016-12-05] MEDS ORDERED: CALCIUM GLUCONATE INJ 1 GM in SODIUM CHLORIDE 0.9% INJ 100 ML IV ONE (07:45)
[2016-12-05] MEDS: FAMOTIDINE 20 MG TAB NG SCH (08:11)
[2016-12-05] MEDS: DOCUSATE SODIUM 50 MG/SENNA 8.6 MG TAB PO SCH ×2 (08:11→20:32)
[2016-12-05] MEDS: MIDAZOLAM 100 MG/ML INJ 100 ML IV SCH ×2 (08:11→20:30)
[2016-12-05] MEDS: LACTOBACILLUS ACIDOPHILUS TAB PO SCH ×2 (08:11→20:32)
[2016-12-05] MEDS: amLODIPine BESYLATE 5 MG TAB PO SCH (08:11)
[2016-12-05] MEDS: GABAPENTIN 300 MG CAP PO SCH ×3 (08:12→16:16)
[2016-12-05] MEDS: RIVAROXABAN 20 MG TAB PO SCH (08:12)
[2016-12-05] MEDS: CYCLOBENZAPRINE HCL 10 MG TAB PO SCH ×3 (08:12→16:16)
--- NOTE | 2016-12-05 08:26 | HHI.CCPN ---
Subjective Remarks/Hospital Course 76-year-old female presents with a history of shortness of breath that started at home. She has also altered mental status. Normally patient is awake with eyes open and answers questions right away. EMS reports pt received a muscle relaxer just prior to their arrival. She has received albuterol x 2 en route with however her CO2 Climbing on the BiPAP machine and she became more lethargic with less responsiveness. She was intubated in the emergency department by ER attending for an airway protection. 12/03 Patient is sedated with Diprivan and intubated. Afebrile. On ACV with PEEP: 10, FIO2 45. 12/04: Afebrile. Arousable on propofol at 50 mcg/kg/m. PEEP is currently around 7. Tolerating tube feeds. Positive BM. Subjective 12/05: Afebrile. Currently all sedation currently off with only one working IV. PEEP 8. Tolerating tube feeding. Positive BM 3 yesterday. Objective Vital Signs Date Time Temp Pulse Resp B/P Pulse Ox O2 Delivery O2 Flow Rate FiO2 12/05/16 06:00 62 12/05/16 04:08 99 40 12/05/16 04:00 98.3 16 130/66 12/02/16 01:16 Ventilator 12/01/16 22:15 6 Intake and Output 12/04/16 12/04/16 12/04/16 07:59 15:59 23:59 Intake Total 818 ml 1158 ml 2186 ml Output Total 215 ml 250 ml 230 ml Balance 603 ml 908 ml 1956 ml Result Diagram: 12/05/16 0625 12/05/16 0625 Other Results Microbiology Date/Time Procedure Status Source Growth 12/04/16 08:30 Influenza Types A,B Antigen (CHANTAL) - Final Complete Nasal Aspirate NEGATIVE FOR FLU A AND B ANTIGEN.... 12/02/16 04:42 Gram Stain Received Sputum Expectorated Sputum Pending 12/02/16 04:42 Sputum Culture Received Sputum Expectorated Sputum Pending 12/02/16 00:51 Gram Stain - Final Complete Sputum Expectorated Sputum 12/02/16 00:51 Sputum Culture - Final Complete Sputum Expectorated Sputum HEAVY GROWTH NORMAL RESPIRATORY KHANG 12/01/16 21:55 Aerobic Blood Culture - Preliminary Resulted Blood Peripheral NO GROWTH IN 3 DAYS 12/01/16 21:55 Anaerobic Blood Culture - Preliminary Resulted Blood Peripheral NO GROWTH IN 3 DAYS 12/01/16 21:46 Aerobic Blood Culture Received Blood Peripheral Pending 12/01/16 21:46 Anaerobic Blood Culture Received Blood Peripheral Pending 12/01/16 20:00 Streptococcus pneumoniae Antigen (M - Final Complete Urine Catheterized Urine PRESUMPTIVE NEGATIVE FOR STREPTOCOCCU... 12/01/16 20:00 Legionella Antigen - Final Complete Urine Clean Catch PRESUMPTIVE NEGATIVE FOR LEGIONELLA P... Imaging Last Impressions Chest X-Ray 12/05/16 0600 Signed Impressions: Service Date/Time: Monday, December 05, 2016 04:18 - CONCLUSION: 1. Cardiomegaly and findings of congestive heart failure. The findings have worsened when compared with the prior examination. Justin Mace MD Renal Ultrasound 12/04/16 0000 Signed Impressions: Service Date/Time: November 17:52 - CONCLUSION: 1. Numerous cysts and chronic parenchymal disease of both kidneys. No evidence of obstructive uropathy or other acute abnormality. 2. Fuentes catheter present. Urinary bladder grossly unremarkable. 3. Cholelithiasis incidentally noted. Jasper Springer MD Lower Extremity Ultrasound 12/03/16 0000 Signed Impressions: Service Date/Time: Saturday, December 03, 2016 09:17 - CONCLUSION: Nonocclusive deep venous thrombus within the posterior tibial veins bilaterally. Galen Pierre MD Liver Ultrasound 12/02/16 0000 Signed Impressions: Service Date/Time: Friday, December 02, 2016 17:19 - CONCLUSION: 1. Common bile duct upper limits of normal caliber for a patient this age. No duct stone. 2. Several stones in the gallbladder measuring up to 14 mm in size. No evidence of acute cholecystitis Jasper Springer MD Chest CT 12/02/16 0000 Signed Impressions: Service Date/Time: Friday, December 02, 2016 10:46 - CONCLUSION: 1. Small bilateral pleural effusions with adjacent alveolar consolidations (right slightly worse than left) consistent with atelectasis and/or pneumonia. Clinical correlation is recommended. 2. Patchiness within the right upper lobe consistent with possible pneumonia. Clinical correlation is recommended. 3. Cardiomegaly, coronary artery calcifications and mitral annulus calcifications. 4. 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 5. Cholelithiasis. 6. Multiple simple and complex renal cysts bilaterally. 7. Degenerative changes and scoliosis of the thoracolumbar spine. Galen Pierre MD Head CT 12/01/16 Signed Impressions: Service Date/Time: Friday, December 02, 2016 04:14 - CONCLUSION: Old infarction on the right and no acute process. Anuradha Anthony MD Objective Remarks GENERAL: 76-year-old female, critically ill currently orotracheally intubated SKIN: Warm and dry. No rash HEAD: Normocephalic. Atraumatic EYES:. Pupils around 2 mm bilaterally and reactive to 3 mm. No scleral icterus. No injection or drainage. NECK: Supple, trachea midline. No JVD or lymphadenopathy. CARDIOVASCULAR: Regular rate and rhythm. S1, S2. No S4. Without murmurs, gallops, or rubs. RESPIRATORY: Few scattered crackles appreciated in the bases bilaterally.. No wheezing GASTROINTESTINAL: Abdomen soft, non-tender, nondistended. I Pollock bowel sounds are appreciated MUSCULOSKELETAL: No significant peripheral edema. Negative Homans sign NEURO: Arousable on the ventilator. Moves all 4 extremities spontaneously to command. Normal sensation. Strength grossly equal and symmetric A/P Assessment and Plan Plan Neuro/Psych: Fibromyalgia History of right posterior frontal lobe CVA Chronic benzodiazepine use Chronic opiate use Patient currently off different than/fentanyl drip just ordered for sedation/ analgesia while intubated Goal of RA SS -[address] head on admission revealed old cephalization of the right posterior frontal lobe. Resumed Neurontin 600 mill grams by mouth 3 times a day/home medication Resumed Flexeril 5 mill grams 3 times a day Daily and Xanax or 0.5 mg 3 times a day anxiety Holding home medication Percocets for pain while on fentanyl drip Pulm: Acute hypoxemic respiratory failure History COPD Community acquired pneumonia ACV 12/500/8/40 Ventilator bundle Breo 100/25 one inhalation at night to be held in light of ventilator usage. We 'll start Pulmicort twice a day Bronchodilators every 6 hours with Xopenex every 2 hours. Dyspnea Solumederol 40mg Q8 Start SBT daily as christophe. Pulm is following- Dr. 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 On Norvasc 5mg daily and metoprolol 12.5 mg by mouth twice a day Echocardiogram 10/06 revealed EF 60%. Left atrial dilatation. No regional wall motion abnormality. Noted CT chest revealed 4.5 fusiform dilatation of the aorta at the retrocardiac with cardiomegaly Holding home medication spironolactone 12.5 mg by mouth daily/home medication Start on low-dose Lasix 20 mg IV daily yesterday per pulmonology /FEN: Monitor renal function, I/O's, electrolytes replacement per protocol; GI: Cholelithiasis Hypoalbuminemia On Pepcid for GI prophylaxis, Continue with tube feeds- Jevity 1.5@55ml/hr Lynn-Colace for bowel regimen ID: CAP Continue with abx (Aztreonam, Azithromycin, Flagyl)monitor for signs of infections ( Fever, WBC) Strep pneumonia and Legionella urinary Ag negative. Pertinent cultures 12/02 - sputum - negative 12/01 - blood cultures 2 - no growth 12/01 - urine - negative Check influenza Heme: Normocytic anemia Chronic Xarelto use Bilateral posterior tibial nonocclusive DVT Monitor CBC On Xarelto 20 mg by mouth daily On iron sulfate 325 mg by mouth 3 times a day Endo: Hypothyroidism SSI for glycemic control GI prophylaxis- on Pepcid DVT Protonix- Xarelto 20mg daily (home med) Critical Care: The total critical care time was 35 minutes. Time to perform other separately billable procedures was not included in the critical care time. Nato Browne MD Dec 05, 2016 08:26
[2016-12-05] MEDS: SODIUM CHLORIDE 0.9% FLUSH 10 ML FLUSH SCH ×2 (08:36→20:31)
[2016-12-05] MEDS: CHLORHEXIDINE 0.12% (ORAL KIT) 15 ML CUP MT SCH ×2 (08:36→20:41)
[2016-12-05] MEDS: FERROUS SULFATE 300 MG /5ML UDC PO SCH ×2 (08:36→20:32)
[2016-12-05] MEDS: FUROSEMIDE 20 MG/2 ML VIAL IV PUSH SCH (09:00)
[2016-12-05] MEDS: RESP: BUDESONIDE 0.5 MG/2 ML NEB NEB SCH ×2 (09:43→20:59)
[2016-12-05] MEDS: AZITHROMYCIN INJ 500 MG in SODIUM CHLOR 0.9% 250 ML INJ 250 ML IV SCH (14:02)
--- NOTE | 2016-12-05 17:19 | ECHRPT ---
Indication: EF assessment of CHF CONCLUSIONS Normal left ventricular size. Mild to moderate concentric left ventricular hypertrophy. The left ventricular systolic function is hyperdynamic with an estimated ejection fraction in the ra nge of 65- 70%. Doppler parameters are consistent with impaired left ventricular relaxtion (grade 1 diastolic dysfun ction). Structurally normal mitral valve. Mild mitral valve regurgitation. Moderate mitral annular calcification. Structurally normal tricuspid valve. There is mild tricuspid valve regurgitation. Normal estimated pulmonary pressures. BP: 117 / 67 HR: 61 Rhythm: Sinus MEASUREMENTS (Male / Female) Normal Values Technical Quality:Fair 2D ECHO LV Diastolic Diameter PLAX 4.3 cm 4.2 - 5.9 / 3.9 - 5.3 cm LV Systolic Diameter PLAX 2.8 cm IVS Diastolic Thickness 1.3 cm 0.6 - 1.0 / 0.6 - 0.9 cm LVPW Diastolic Thickness 1.3 cm 0.6 - 1.0 / 0.6 - 0.9 cm LV Relative Wall Thickness 0.6 LVOT Diameter 2.1 cm Aortic Root Diameter 3.4 cm LA Systolic Diameter LX 3.5 cm 3.0 - 4.0 / 2.7 - 3.8 cm M-MODE LA Systolic Diameter MM 5.3 cm AV Cusp Separation MM 2.1 cm DOPPLER AV Peak Velocity 164.0 cm/s AV Peak Gradient 10.8 mmHg AV Mean Gradient 5.0 mmHg AV Velocity Time Integral 32.7 cm LVOT Peak Velocity 91.1 cm/s LVOT Peak Gradient 3.3 mmHg LVOT Velocity Time Integral 17.8 cm LVOT Cardiac Index 1997.4 cm/minm AV Area Cont Eq vti 1.9 cm AV Area Cont Eq pk 1.9 cm Mitral E Point Velocity 104.0 cm/s Mitral A Point Velocity 153.0 cm/s Mitral E to A Ratio 0.7 LV E' Lateral Velocity 7.3 cm/s Mitral E to LV E' Lateral Ratio 14.2 LV E' Septal Velocity 5.3 cm/s Mitral E to LV E' Septal Ratio 19.8 TR Peak Velocity 267.0 cm/s TR Peak Gradient 28.5 mmHg PV Peak Velocity 64.7 cm/s PV Peak Gradient 1.7 mmHg FINDINGS LEFT VENTRICLE Normal left ventricular size. Mild to moderate concentric left ventricular hypertrophy. The left ventricular systolic function is hyperdynamic with an estimated ejection fraction in the ra nge of 65- 70%. Doppler parameters are consistent with impaired left ventricular relaxtion (grade 1 diastolic dysfun ction). RIGHT VENTRICLE Normal right ventricular size and systolic function. LEFT ATRIUM The left atrial size is mildly dilated. RIGHT ATRIUM The right atrial size is upper limits of normal. ATRIAL SEPTUM The interatrial septum not well visualized. AORTA The aortic root and proximal ascending aorta are normal in size on limited imaging. MITRAL VALVE Structurally normal mitral valve. Mild mitral valve regurgitation. Moderate mitral annular calcification. AORTIC VALVE Trileaflet aortic valve. No aortic valve stenosis or regurgitation. TRICUSPID VALVE Structurally normal tricuspid valve. There is mild tricuspid valve regurgitation. Normal estimated pulmonary pressures. PULMONARY VALVE The pulmonary valve is not well visualized. VESSELS The inferior vena cava is normal in size. PERICARDIUM No pericardial effusion. Jim Taylor MD, FACC, [facility] [place] (Electronically Signed) Final Date:05 December 2016 17:18
--- NOTE | 2016-12-05 18:10 | HHI.PR ---
Subjective Remarks 76 YOWf with Severe COPD, known to me from office has multiple admissions in the hosp On Vent Sedated with Fentanyl and Versed On ACV Objective Vital Signs Vital Signs Date Time Temp Pulse Resp B/P Pulse Ox O2 Delivery O2 Flow Rate FiO2 12/05/16 16:01 98 40 12/05/16 16:00 63 11 113/62 93 12/05/16 16:00 63 12/05/16 16:00 40 12/05/16 15:30 67 12/05/16 15:30 67 11 113/60 94 12/05/16 15:00 71 13 116/59 94 12/05/16 15:00 71 12/05/16 14:30 67 12/05/16 14:30 67 12 114/59 94 12/05/16 14:00 77 25 134/73 95 12/05/16 14:00 77 12/05/16 14:00 77 12/05/16 13:30 67 12/05/16 13:30 67 12/05/16 13:30 67 13 131/65 93 12/05/16 13:30 67 13 131/65 93 12/05/16 13:00 67 16 125/58 93 12/05/16 13:00 67 12/05/16 13:00 67 12/05/16 13:00 67 16 125/58 93 12/05/16 12:30 71 12/05/16 12:30 71 12/05/16 12:30 71 18 126/69 95 12/05/16 12:30 71 18 126/69 95 12/05/16 12:00 65 12/05/16 12:00 65 19 114/61 93 12/05/16 12:00 40 12/05/16 12:00 65 12/05/16 12:00 65 12/05/16 12:00 65 19 114/61 93 12/05/16 11:34 92 40 12/05/16 11:30 66 14 113/58 92 12/05/16 11:30 66 12/05/16 11:30 66 12/05/16 11:30 66 14 113/58 92 12/05/16 11:30 66 12/05/16 11:00 69 12/05/16 11:00 69 12 114/61 93 12/05/16 11:00 69 12 114/61 93 12/05/16 11:00 69 12/05/16 11:00 69 12/05/16 10:30 69 12/05/16 10:30 69 14 110/58 96 16 10:30 69 14 110/58 96 12/05/16 10:30 69 1617 10:30 69 12/05/16 10:00 69 12/05/16 10:00 69 12/05/16 10:00 69 12/05/16 10:00 69 18 101/55 93 12/05/16 10:00 69 18 101/55 93 12/05/16 10:00 69 18 101/55 93 16 09:30 71 12 115/61 95 12/05/16 09:30 71 12 115/61 95 12/05/16 09:30 71 12/05/16 09:30 71 12 115/61 95 12/05/16 09:30 71 12/05/16 09:30 71 12/05/16 09:00 77 12/05/16 09:00 77 12 117/64 94 12/05/16 09:00 77 12/05/16 09:00 77 12/05/16 09:00 77 12 117/64 94 12/05/16 09:00 77 12 117/64 94 12/05/16 08:08 93 40 12/05/16 08:08 97 Ventilator 40 12/05/16 08:00 64 13 116/63 96 12/05/16 08:00 64 12/05/16 08:00 64 13 116/63 96 12/05/16 08:00 64 12/05/16 08:00 64 12/05/16 08:00 40 12/05/16 08:00 64 13 116/63 96 12/05/16 06:00 62 12/05/16 04:08 99 40 12/05/16 04:00 98.3 69 16 130/66 97 12/05/16 04:00 40 12/05/16 04:00 63 12/05/16 02:00 59 12/05/16 01:20 96 40 12/05/16 00:00 98.3 57 13 100/57 95 12/05/16 00:00 57 12/05/16 00:00 40 12/04/16 22:07 93 40 12/04/16 22:00 64 12/04/16 20:00 97.9 61 18 96/52 96 12/04/16 20:00 40 12/04/16 20:00 61 12/04/16 19:46 96 40 I/O 12/04/16 12/04/16 12/04/16 12/05/16 12/05/16 12/05/16 07:00 15:00 23:00 07:00 15:00 23:00 Intake Total 818 ml 1158 ml 2186 ml 782 ml 2313 ml Output Total 215 ml 250 ml 230 ml 200 ml 450 ml Balance 603 ml 908 ml 1956 ml 582 ml 1863 ml Intake IV Total 459 ml 594 ml 1640 ml 455 ml 1590 ml Tube Feeding 359 ml 444 ml 446 ml 327 ml 483 ml Other 120 ml 100 ml 240 ml Output Urine Total 215 ml 250 ml 230 ml 200 ml 450 ml # Bowel Movements 0 Result Diagram: 12/05/16 0625 12/05/16 1639 Objective Remarks GENERAL: MBMN Wf, on vent, sedated SKIN: Warm and dry. HEAD: Normocephalic. EYES: No scleral icterus. No injection or drainage. NECK: Supple, trachea midline. No JVD or lymphadenopathy. CARDIOVASCULAR: Regular rate and rhythm without murmurs, gallops, or rubs. RESPIRATORY: Breath sounds equal bilaterally. No accessory muscle use. GASTROINTESTINAL: Abdomen soft, non-tender, nondistended. MUSCULOSKELETAL: No cyanosis, or edema. BACK: Nontender without obvious deformity. No CVA tenderness. A/P Assessment and Plan VDRF Severe COPD Pneumonia AF CHF Pleural effusion PLAN: cont vent Support Aerosol nebs Cont Abx Xarelto daily Diurease Fentanyl and Versed for sedation. Arvind Cummings MD Dec 05, 2016 18:10
[2016-12-05] MEDS: POLYETHYLENE GLYCOL 17 GM PKG PO SCH (20:32)
[2016-12-05] MEDS: ONDANSETRON HCL 4 MG/2 ML VIAL IV PRN (21:04)
[2016-12-06] VITALS (26 sets, daily range): BP systolic 113–166; BP diastolic 57–81; PULSE 53–74; RESP 1–40; TEMP 97.3–99.4; O2SAT 92–100
[2016-12-06] MEDS: AZTREONAM INJ 2,000 MG in SODIUM CHLORIDE 0.9% INJ 100 ML IV SCH ×3 (02:51→17:17)
[2016-12-06] MEDS: metroNIDAZOLE 500 MG INJ 100 ML IV SCH ×4 (03:39→21:54)
[2016-12-06] MEDS: CHLORHEXIDINE GLUCONATE 2 % 1 PACK (2 CLOTHS) TOP SCH (03:39)
[2016-12-06] MEDS: RESP: ALBUTEROL 2.5 MG/IPRATROPIUM 0.5 MG NEB (SCH) INH ×4 (03:55→19:37)
--- NOTE | 2016-12-06 05:36 | RADRPT ---
EXAM DATE/TIME: 12/06/2016 04:18 [facility] COMPARISON: CHEST SINGLE AP, December 05, 2016, 4:18. INDICATIONS : Shortness of breath, possible pulmonary disease. MEDICAL HISTORY : Chronic obstructive pulmonary disease. Deep venous thrombosis. Hypertension. Cardiovascular dise ase CHF SURGICAL HISTORY : None. ENCOUNTER: Subsequent ACUITY: 4 - 6 days PAIN SCORE: Non-responsive. LOCATION: Bilateral chest FINDINGS: A single view of the chest demonstrates endotracheal tube in satisfactory position. NG enters stomach . Bilateral mostly basilar airspace consolidation with small effusions. Cardiomegaly. CONCLUSION: 1. Bilateral mostly basilar airspace disease with small effusions. Findings may indicate mild congest herber heart failure. Endotracheal tube and nasogastric tube in satisfactory position. Neo Jacome MD on December 06, 2016 at 5:33 Board Certified Radiologist. This report was verified electronically.
[2016-12-06] MEDS: INSULIN NovoLIN REGULAR SUPPLEMENTAL SCALE SQ SCH ×4 (06:00→17:22)
[2016-12-06] MEDS: methylPREDNISolone SOD SUCC 40 MG/1 ML VIAL IV SCH ×3 (06:35→21:53)
[2016-12-06] MEDS: LEVOTHYROXINE SODIUM 25 MCG TAB PO SCH (06:35)
[2016-12-06] MEDS: CHLORHEXIDINE 0.12% (ORAL KIT) 15 ML CUP MT SCH ×2 (08:00→20:22)
[2016-12-06] MEDS: PROPOFOL 1000 MG/100 ML INJ 100 ML IV SCH (09:22)
[2016-12-06] MEDS: fentaNYL DRIP 250 ML IV SCH (09:23)
[2016-12-06] MEDS: FERROUS SULFATE 300 MG /5ML UDC PO SCH ×2 (09:23→20:22)
[2016-12-06] MEDS: MIDAZOLAM 100 MG/ML INJ 100 ML IV SCH (09:23)
[2016-12-06] MEDS: CYCLOBENZAPRINE HCL 10 MG TAB PO SCH ×3 (09:24→17:18)
[2016-12-06] MEDS: FAMOTIDINE 20 MG TAB NG SCH (09:24)
[2016-12-06] MEDS: amLODIPine BESYLATE 5 MG TAB PO SCH (09:24)
[2016-12-06] MEDS: GABAPENTIN 300 MG CAP PO SCH ×3 (09:25→17:18)
[2016-12-06] MEDS: SODIUM CHLORIDE 0.9% FLUSH 10 ML FLUSH SCH ×2 (09:25→20:22)
[2016-12-06] MEDS: FUROSEMIDE 20 MG/2 ML VIAL IV PUSH SCH (09:25)
[2016-12-06] MEDS: LACTOBACILLUS ACIDOPHILUS TAB PO SCH ×2 (10:02→20:22)
[2016-12-06] MEDS: RIVAROXABAN 20 MG TAB PO SCH (10:02)
[2016-12-06] MEDS: DOCUSATE SODIUM 50 MG/SENNA 8.6 MG TAB PO SCH ×2 (10:03→20:22)
[2016-12-06] MEDS: RESP: BUDESONIDE 0.5 MG/2 ML NEB NEB SCH ×2 (10:39→19:36)
--- NOTE | 2016-12-06 12:18 | HHI.CCPN ---
Subjective Remarks/Hospital Course 76-year-old female presents with a history of shortness of breath that started at home. She has also altered mental status. Normally patient is awake with eyes open and answers questions right away. EMS reports pt received a muscle relaxer just prior to their arrival. She has received albuterol x 2 en route with however her CO2 Climbing on the BiPAP machine and she became more lethargic with less responsiveness. She was intubated in the emergency department by ER attending for an airway protection. 12/03 Patient is sedated with Diprivan and intubated. Afebrile. On ACV with PEEP: 10, FIO2 45. 12/04: Afebrile. Arousable on propofol at 50 mcg/kg/m. PEEP is currently around 7. Tolerating tube feeds. Positive BM. 12/05: Afebrile. Currently all sedation currently off with only one working IV. PEEP 8. Tolerating tube feeding. Positive BM 3 yesterday. Subjective 12/06: Currently on PSV trial. Adequate urine output. Difficulty in obtaining peripheral blood draws. Positive BM. Tolerating tube feeding. Awake and alert and following commands. Objective Vital Signs Date Time Temp Pulse Resp B/P Pulse Ox O2 Delivery O2 Flow Rate FiO2 12/06/16 10:40 40 12/06/16 10:40 94 12/06/16 06:00 60 12/06/16 04:00 97.6 12 122/59 12/05/16 08:08 Ventilator Intake and Output 12/05/16 12/05/16 12/06/16 08:00 16:00 00:00 Intake Total 782 ml 2313 ml 1157 ml Output Total 200 ml 450 ml 425 ml Balance 582 ml 1863 ml 732 ml Result Diagram: 12/05/16 0625 12/05/16 1639 Other Results Microbiology Date/Time Procedure Status Source Growth 12/04/16 08:30 Influenza Types A,B Antigen (CHANTAL) - Final Complete Nasal Aspirate NEGATIVE FOR FLU A AND B ANTIGEN.... 12/02/16 04:42 Gram Stain Received Sputum Expectorated Sputum Pending 12/02/16 04:42 Sputum Culture Received Sputum Expectorated Sputum Pending 12/02/16 00:51 Gram Stain - Final Complete Sputum Expectorated Sputum 12/02/16 00:51 Sputum Culture - Final Complete Sputum Expectorated Sputum HEAVY GROWTH NORMAL RESPIRATORY KHANG 12/01/16 21:55 Aerobic Blood Culture - Final Complete Blood Peripheral NO GROWTH IN 5 DAYS 12/01/16 21:55 Anaerobic Blood Culture - Final Complete Blood Peripheral NO GROWTH IN 5 DAYS 12/01/16 21:46 Aerobic Blood Culture Received Blood Peripheral Pending 12/01/16 21:46 Anaerobic Blood Culture Received Blood Peripheral Pending 12/01/16 20:00 Streptococcus pneumoniae Antigen (M - Final Complete Urine Catheterized Urine PRESUMPTIVE NEGATIVE FOR STREPTOCOCCU... 12/01/16 20:00 Legionella Antigen - Final Complete Urine Clean Catch PRESUMPTIVE NEGATIVE FOR LEGIONELLA P... Imaging Last Impressions Chest X-Ray 12/06/16 0600 Signed Impressions: Service Date/Time: Tuesday, December 06, 2016 04:18 - CONCLUSION: 1. Bilateral mostly basilar airspace disease with small effusions. Findings may indicate mild congestive heart failure. Endotracheal tube and nasogastric tube in satisfactory position. Neo Jacome MD Renal Ultrasound 12/04/16 0000 Signed Impressions: Service Date/Time: November 17:52 - CONCLUSION: 1. Numerous cysts and chronic parenchymal disease of both kidneys. No evidence of obstructive uropathy or other acute abnormality. 2. Fuentes catheter present. Urinary bladder grossly unremarkable. 3. Cholelithiasis incidentally noted. Jasper Springer MD Lower Extremity Ultrasound 12/03/16 0000 Signed Impressions: Service Date/Time: Saturday, December 03, 2016 09:17 - CONCLUSION: Nonocclusive deep venous thrombus within the posterior tibial veins bilaterally. Galen Pierre MD Liver Ultrasound 12/02/16 0000 Signed Impressions: Service Date/Time: Friday, December 02, 2016 17:19 - CONCLUSION: 1. Common bile duct upper limits of normal caliber for a patient this age. No duct stone. 2. Several stones in the gallbladder measuring up to 14 mm in size. No evidence of acute cholecystitis Jasper Springer MD Chest CT 12/02/16 0000 Signed Impressions: Service Date/Time: Friday, December 02, 2016 10:46 - CONCLUSION: 1. Small bilateral pleural effusions with adjacent alveolar consolidations (right slightly worse than left) consistent with atelectasis and/or pneumonia. Clinical correlation is recommended. 2. Patchiness within the right upper lobe consistent with possible pneumonia. Clinical correlation is recommended. 3. Cardiomegaly, coronary artery calcifications and mitral annulus calcifications. 4. 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 5. Cholelithiasis. 6. Multiple simple and complex renal cysts bilaterally. 7. Degenerative changes and scoliosis of the thoracolumbar spine. Galen Pierre MD Head CT 12/01/16 5351 Signed Impressions: Service Date/Time: Friday, December 02, 2016 04:14 - CONCLUSION: Old infarction on the right and no acute process. Anuradha Anthony MD Objective Remarks GENERAL: 76-year-old female, critically ill currently orotracheally intubated SKIN: Warm and dry. No rash HEAD: Normocephalic. Atraumatic EYES:. Pupils around 2 mm bilaterally and reactive to 3 mm. No scleral icterus. No injection or drainage. NECK: Supple, trachea midline. No JVD or lymphadenopathy. CARDIOVASCULAR: Regular rate and rhythm. S1, S2. No S4. Without murmurs, gallops, or rubs. RESPIRATORY: Few scattered crackles appreciated in the bases bilaterally.. No wheezing GASTROINTESTINAL: Abdomen soft, non-tender, nondistended. I Pollock bowel sounds are appreciated MUSCULOSKELETAL: No significant peripheral edema. Negative Homans sign NEURO: Arousable on the ventilator. Moves all 4 extremities spontaneously to command. Normal sensation. Strength grossly equal and symmetric A/P Assessment and Plan Plan Neuro/Psych: Fibromyalgia History of right posterior frontal lobe CVA Chronic benzodiazepine use Chronic opiate use Patient currently on propofol drip at 10 mics grams per kilogram per minute/ fentanyl drip at 50 g an hour ordered for sedation/analgesia while intubated Goal of RASS -[address] head on admission revealed old cephalization of the right posterior frontal lobe. Resumed Neurontin 600 mill grams by mouth 3 times a day/home medication Resumed Flexeril 5 mill grams 3 times a day Currently on scheduled Xanax 0.5 mg 3 times a day anxiety Holding home medication Percocets for pain while on fentanyl drip Pulm: Acute hypoxemic respiratory failure History COPD Community acquired pneumonia ACV 12/500/5/40 PSV 10/5 and 40% Ventilator bundle Breo 100/25 one inhalation at night to be held in light of ventilator usage. Currently using Pulmicort twice a day Bronchodilators every 6 hours with Xopenex every 2 hours as needed for Dyspnea Solumederol 40mg Q8 Start SBT daily as christophe. Puladen is following- Dr. 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 On Norvasc 5mg daily and metoprolol 12.5 mg by mouth twice a day Echocardiogram 10/06 revealed EF 60%. Left atrial dilatation. No regional wall motion abnormality. Noted CT chest revealed 4.5 fusiform dilatation of the aorta at the retrocardiac with cardiomegaly Holding home medication spironolactone 12.5 mg by mouth daily/home medication Start on low-dose Lasix 20 mg IV daily yesterday per pulmonology /FEN: Monitor renal function, I/O's, electrolytes replacement per protocol; GI: Cholelithiasis Hypoalbuminemia On Pepcid for GI prophylaxis, Continue with tube feeds- Jevity 1.5@55ml/hr Lynn-Colace for bowel regimen ID: CAP Continue with abx (Aztreonam, Azithromycin, Flagyl)monitor for signs of infections ( Fever, WBC) Strep pneumonia and Legionella urinary Ag negative. Pertinent cultures 12/02 - sputum - negative 12/01 - blood cultures 2 - no growth 12/01 - urine - negative Negative influenza Heme: Normocytic anemia Chronic Xarelto use Bilateral posterior tibial nonocclusive DVT Monitor CBC On Xarelto 20 mg by mouth daily On iron sulfate 325 mg by mouth 3 times a day Endo: Hypothyroidism SSI for glycemic control GI prophylaxis- on Pepcid DVT Protonix- Xarelto 20mg daily (home med) Critical Care: The total critical care time was 35 minutes. Time to perform other separately billable procedures was not included in the critical care time. Nato Browne MD Dec 06, 2016 12:18
[2016-12-06] MEDS: AZITHROMYCIN INJ 500 MG in SODIUM CHLOR 0.9% 250 ML INJ 250 ML IV SCH (13:31)
[2016-12-06] MEDS: METOCLOPRAMIDE HCL 10 MG/2 ML VIAL IV PUSH SCH ×2 (13:47→21:53)
[2016-12-06 14:54] LABS: HEMATOCRIT 27.8 % (35.0-46.0); MEAN CELL VOLUME 96.5 FL (80.0-100.0); MEAN CORPUSCULAR HEMOGLOBIN 30.9 PG (27.0-34.0); PLATELET COUNT 157 TH/MM3 (150-450); RED BLOOD COUNT 2.88 MIL/MM3 (4.00-5.30); RED CELL DISTRIBUTION WIDTH 18.6 % (11.6-17.2); REVIEW FLAG FINAL
[2016-12-06 15:21] LABS: BICARBONATE 32.3 MEQ/L (21.0-32.0); MAGNESIUM 2.4 MG/DL (1.5-2.5); POTASSIUM 4.3 MEQ/L (3.5-5.1)
[2016-12-06 15:48] LABS: CALCIUM-PROTEIN CORRECTED 8.1 MG/DL (8.5-10.1)
[2016-12-06] MEDS ORDERED: POTASSIUM PHOSPHATE/SODIUM PHOSPHATE 250 MG TAB PO ONE (16:15)
[2016-12-06] MEDS ORDERED: METOLAZONE 2.5 MG TAB PO ONE (16:15)
[2016-12-06] MEDS: FREE WATER G-TUBE SCH (17:18)
--- NOTE | 2016-12-06 20:06 | HHI.PR ---
Subjective Remarks ASS: ON THE VENT SEDATED Objective Vital Signs Date Time Temp Pulse Resp B/P Pulse Ox O2 Delivery O2 Flow Rate FiO2 12/06/16 19:37 92 40 12/06/16 18:00 59 12/06/16 16:00 40 12/06/16 16:00 64 12/06/16 16:00 98.8 64 18 128/66 93 12/06/16 15:15 40 12/06/16 15:14 94 40 12/06/16 14:00 61 12/06/16 12:39 96 40 12/06/16 12:00 63 12/06/16 12:00 40 12/06/16 12:00 98.6 63 7 137/69 96 12/06/16 11:00 64 9 137/68 95 12/06/16 10:40 40 12/06/16 10:40 94 40 12/06/16 10:39 97 40 12/06/16 10:01 62 18 155/74 99 12/06/16 10:00 62 12/06/16 09:00 74 40 166/81 100 12/06/16 08:00 98.5 63 20 155/71 97 12/06/16 08:00 63 12/06/16 08:00 40 12/06/16 07:23 99 40 12/06/16 07:00 59 10 120/57 99 12/06/16 06:00 60 5 120/59 98 12/06/16 06:00 60 12/06/16 05:00 63 1 121/58 99 12/06/16 04:00 97.6 63 12 122/59 98 12/06/16 04:00 40 12/06/16 04:00 63 12/06/16 03:50 98 40 12/06/16 02:00 59 12/06/16 01:16 99 40 12/06/16 00:00 97.3 54 13 125/66 100 12/06/16 00:00 53 12/06/16 00:00 40 12/05/16 22:00 56 12/05/16 22:00 100 40 I/O 12/05/16 12/05/16 12/05/16 12/06/16 12/06/16 12/06/16 07:00 15:00 23:00 07:00 15:00 23:00 Intake Total 782 ml 2313 ml 1157 ml 443 ml 979 ml Output Total 200 ml 450 ml 425 ml 250 ml 1000 ml Balance 582 ml 1863 ml 732 ml 193 ml -21 ml Intake IV Total 455 ml 1590 ml 779 ml 264 ml 613 ml Tube Feeding 327 ml 483 ml 278 ml 79 ml 246 ml Other 240 ml 100 ml 100 ml 120 ml Output Urine Total 200 ml 450 ml 325 ml 250 ml 1000 ml Emesis 100 ml # Bowel Movements 0 Result Diagram: 12/06/16 1445 12/06/16 1445 Objective Remarks GENERAL: SKIN: Warm and dry. HEAD: Atraumatic. Normocephalic. EYES: Pupils equal and round. No scleral icterus. No injection or drainage. ENT: No nasal bleeding or discharge. Mucous membranes pink and moist. NECK: Trachea midline. No JVD. CARDIOVASCULAR: Regular rate and rhythm. RESPIRATORY: No accessory muscle use. Clear to auscultation. Breath sounds equal bilaterally. GASTROINTESTINAL: Abdomen soft, non-tender, nondistended. Hepatic and splenic margins not palpable. MUSCULOSKELETAL: Extremities without clubbing, cyanosis, or edema. No obvious deformities. NEUROLOGICAL: Awake and alert. No obvious cranial nerve deficits. Motor grossly within normal limits. Five out of 5 muscle strength in the arms and legs. Normal speech. PSYCHIATRIC: Appropriate mood and affect; insight and judgment normal. Assessment and Plan Assessment and Plan ASSRESPIRATORY FAILURE PNA PLAN: VENT SUPPORT WEAN TOLERATED Mari Guerra MD Dec 06, 2016 20:06
[2016-12-06] MEDS: POLYETHYLENE GLYCOL 17 GM PKG PO SCH (20:22)
[2016-12-07] VITALS (34 sets, daily range): BP systolic 129–193; BP diastolic 64–107; PULSE 58–97; RESP 16–43; TEMP 97.7–99.1; O2SAT 90–98
[2016-12-07] MEDS: AZTREONAM INJ 2,000 MG in SODIUM CHLORIDE 0.9% INJ 100 ML IV SCH ×3 (02:06→17:53)
[2016-12-07] MEDS: RESP: ALBUTEROL 2.5 MG/IPRATROPIUM 0.5 MG NEB (SCH) INH ×4 (03:16→20:31)
[2016-12-07] MEDS: CHLORHEXIDINE GLUCONATE 2 % 1 PACK (2 CLOTHS) TOP SCH (04:00)
[2016-12-07] MEDS: metroNIDAZOLE 500 MG INJ 100 ML IV SCH ×4 (04:36→20:22)
--- NOTE | 2016-12-07 04:51 | RADRPT ---
EXAM DATE/TIME: 12/07/2016 03:13 [facility] COMPARISON: CHEST SINGLE AP, December 06, 2016, 4:18. INDICATIONS : Evalaute after respiratory failure, Pt. intubated. MEDICAL HISTORY : Chronic obstructive pulmonary disease. Deep venous thrombosis. SURGICAL HISTORY : None. ENCOUNTER: Subsequent ACUITY: 1 week PAIN SCORE: Non-responsive. LOCATION: Bilateral chest FINDINGS: Single AP view of the chest. Endotracheal tube and nasogastric tube remain in place. Bilateral lower lung zone opacity unchanged. No evidence of pneumothorax. Likely small pleural effusions again seen. CONCLUSION: No significant change with persistent medial bilateral lower lung opacity. Reji Phelps MD on December 07, 2016 at 4:49 Board Certified Radiologist. This report was verified electronically.
[2016-12-07 05:54] LABS: AUTOMATED NEUTROPHIL # 7.7 TH/MM3 (1.8-7.7); BASOPHIL % 0.2 % (0.0-2.0); HEMATOCRIT 30.6 % (35.0-46.0); HEMO FLAGS DIFF FINAL; LYMPH % 13.2 % (9.0-44.0); LYMPHOCYTE # 1.3 TH/MM3 (1.0-4.8); MEAN CELL VOLUME 95.1 FL (80.0-100.0); MEAN CORPUSCULAR HEMOGLOBIN 30.2 PG (27.0-34.0); MEAN CORPUSCULAR HGB CONC 31.7 % (32.0-36.0); MONO % 5.7 % (0.0-8.0); NEUT % 80.9 % (16.0-70.0); PLATELET COUNT 159 TH/MM3 (150-450); RED BLOOD COUNT 3.22 MIL/MM3 (4.00-5.30); RED CELL DISTRIBUTION WIDTH 18.4 % (11.6-17.2); WHITE BLOOD COUNT 9.6 TH/MM3 (4.0-11.0)
[2016-12-07] MEDS: INSULIN NovoLIN REGULAR SUPPLEMENTAL SCALE SQ SCH ×5 (06:00→23:36)
[2016-12-07] MEDS: FREE WATER G-TUBE SCH ×5 (06:00→23:21)
[2016-12-07] MEDS: LEVOTHYROXINE SODIUM 25 MCG TAB PO SCH (06:10)
[2016-12-07] MEDS: methylPREDNISolone SOD SUCC 40 MG/1 ML VIAL IV SCH ×3 (06:10→20:21)
[2016-12-07] MEDS: METOCLOPRAMIDE HCL 10 MG/2 ML VIAL IV PUSH SCH ×3 (06:10→20:21)
[2016-12-07 06:35] LABS: BICARBONATE 30.5 MEQ/L (21.0-32.0)
[2016-12-07] MEDS: fentaNYL DRIP 250 ML IV SCH (06:38)
[2016-12-07] MEDS: CYCLOBENZAPRINE HCL 10 MG TAB PO SCH ×3 (08:10→17:53)
[2016-12-07] MEDS: LACTOBACILLUS ACIDOPHILUS TAB PO SCH ×2 (08:10→20:20)
[2016-12-07] MEDS: FAMOTIDINE 20 MG TAB NG SCH (08:10)
[2016-12-07] MEDS: CHLORHEXIDINE 0.12% (ORAL KIT) 15 ML CUP MT SCH ×2 (08:10→19:18)
[2016-12-07] MEDS: SODIUM CHLORIDE 0.9% FLUSH 10 ML FLUSH SCH ×2 (08:11→20:22)
[2016-12-07] MEDS: RIVAROXABAN 20 MG TAB PO SCH (08:11)
[2016-12-07] MEDS: FERROUS SULFATE 300 MG /5ML UDC PO SCH ×2 (08:11→20:22)
[2016-12-07] MEDS: amLODIPine BESYLATE 5 MG TAB PO SCH (08:11)
[2016-12-07] MEDS: FUROSEMIDE 20 MG/2 ML VIAL IV PUSH SCH (08:11)
[2016-12-07] MEDS: GABAPENTIN 300 MG CAP PO SCH ×3 (08:11→17:53)
[2016-12-07] MEDS: DOCUSATE SODIUM 50 MG/SENNA 8.6 MG TAB PO SCH ×2 (08:11→19:19)
[2016-12-07] MEDS ORDERED: FUROSEMIDE 20 MG/2 ML VIAL IV PUSH ONE (08:30)
[2016-12-07] MEDS ORDERED: METOLAZONE 5 MG TAB PO ONE (08:30)
--- NOTE | 2016-12-07 09:07 | HHI.CCPN ---
Subjective Remarks/Hospital Course 76-year-old female presents with a history of shortness of breath that started at home. She has also altered mental status. Normally patient is awake with eyes open and answers questions right away. EMS reports pt received a muscle relaxer just prior to their arrival. She has received albuterol x 2 en route with however her CO2 Climbing on the BiPAP machine and she became more lethargic with less responsiveness. She was intubated in the emergency department by ER attending for an airway protection. 12/03 Patient is sedated with Diprivan and intubated. Afebrile. On ACV with PEEP: 10, FIO2 45. 12/04: Afebrile. Arousable on propofol at 50 mcg/kg/m. PEEP is currently around 7. Tolerating tube feeds. Positive BM. 12/05: Afebrile. Currently all sedation currently off with only one working IV. PEEP 8. Tolerating tube feeding. Positive BM 3 yesterday. 12/06: Currently on PSV trial. Adequate urine output. Difficulty in obtaining peripheral blood draws. Positive BM. Tolerating tube feeding. Awake and alert and following commands. Subjective 12/07: On sedation vacation about initiates PSV trial. Lasted around 8 hours yesterday. Continue diuresis. Tolerating tube feeding. Positive BM. Objective Vital Signs Date Time Temp Pulse Resp B/P Pulse Ox O2 Delivery O2 Flow Rate FiO2 12/07/16 07:27 96 40 12/07/16 06:00 75 12/07/16 04:00 99.1 20 133/65 12/05/16 08:08 Ventilator Intake and Output 12/06/16 12/06/16 12/07/16 08:00 16:00 00:00 Intake Total 443 ml 979 ml 1004 ml Output Total 250 ml 1000 ml 600 ml Balance 193 ml -21 ml 404 ml Result Diagram: 12/07/16 0541 12/07/16 0541 Other Results Microbiology Date/Time Procedure Status Source Growth 12/04/16 08:30 Influenza Types A,B Antigen (CHANTAL) - Final Complete Nasal Aspirate NEGATIVE FOR FLU A AND B ANTIGEN.... Imaging Last Impressions Chest X-Ray 12/07/16 0600 Signed Impressions: Service Date/Time: Wednesday, December 07, 2016 03:13 - CONCLUSION: No significant change with persistent medial bilateral lower lung opacity. Reji R Phelps , MD Renal Ultrasound 12/04/16 0000 Signed Impressions: Service Date/Time: November 17:52 - CONCLUSION: 1. Numerous cysts and chronic parenchymal disease of both kidneys. No evidence of obstructive uropathy or other acute abnormality. 2. Fuentes catheter present. Urinary bladder grossly unremarkable. 3. Cholelithiasis incidentally noted. Jasper Springer MD Lower Extremity Ultrasound 12/03/16 0000 Signed Impressions: Service Date/Time: Saturday, December 03, 2016 09:17 - CONCLUSION: Nonocclusive deep venous thrombus within the posterior tibial veins bilaterally. Galen Pierre MD Liver Ultrasound 12/02/16 0000 Signed Impressions: Service Date/Time: Friday, December 02, 2016 17:19 - CONCLUSION: 1. Common bile duct upper limits of normal caliber for a patient this age. No duct stone. 2. Several stones in the gallbladder measuring up to 14 mm in size. No evidence of acute cholecystitis Jasper Springer MD Chest CT 12/02/16 0000 Signed Impressions: Service Date/Time: Friday, December 02, 2016 10:46 - CONCLUSION: 1. Small bilateral pleural effusions with adjacent alveolar consolidations (right slightly worse than left) consistent with atelectasis and/or pneumonia. Clinical correlation is recommended. 2. Patchiness within the right upper lobe consistent with possible pneumonia. Clinical correlation is recommended. 3. Cardiomegaly, coronary artery calcifications and mitral annulus calcifications. 4. 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 5. Cholelithiasis. 6. Multiple simple and complex renal cysts bilaterally. 7. Degenerative changes and scoliosis of the thoracolumbar spine. 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 Anuradha Anthony MD Objective Remarks GENERAL: 76-year-old female, critically ill currently orotracheally intubated SKIN: Warm and dry. No rash. Significant ecchymoses bilateral hands HEAD: Normocephalic. Atraumatic EYES:. Pupils around 2 mm bilaterally and reactive to 3 mm. No scleral icterus. No injection or drainage. NECK: Supple, trachea midline. No JVD or lymphadenopathy. CARDIOVASCULAR: Regular rate and rhythm. S1, S2. No S4. Without murmurs, gallops, or rubs. RESPIRATORY: Few scattered crackles appreciated in the bases bilaterally.. No wheezing GASTROINTESTINAL: Abdomen soft, non-tender, nondistended. Hypoactive bowel sounds are appreciated MUSCULOSKELETAL: Trace to 1+ upper and lower extremity edema. Negative Homans sign NEURO: Arousable on the ventilator. Moves all 4 extremities spontaneously to command. Normal sensation. Strength grossly equal and symmetric A/P Assessment and Plan Neuro/Psych: Fibromyalgia History of right posterior frontal lobe CVA Chronic benzodiazepine use Chronic opiate use Patient currently on propofol drip at 10 mics grams per kilogram per minute/ fentanyl drip at 50 g an hour ordered for sedation/analgesia while intubated Goal of RASS -[address] head on admission revealed old cephalization of the right posterior frontal lobe. Resumed Neurontin 600 mill grams by mouth 3 times a day/home medication Resumed Flexeril 5 mill grams 3 times a day Currently on scheduled Xanax 0.5 mg 3 times a day anxiety Holding home medication Percocets for pain while on fentanyl drip Pulm: Acute hypoxemic respiratory failure History COPD Community acquired pneumonia ACV 12/500/5/40 PSV 10/5 and 40% Ventilator bundle Breo 100/25 one inhalation at night to be held in light of ventilator usage. Currently using Pulmicort 0.5/2 one inhalation twice a day Bronchodilators every 6 hours with Xopenex every 2 hours as needed for Dyspnea Solumederol 40mg Q8 Start SBT daily as christophe. 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 On Norvasc 5mg daily and metoprolol 12.5 mg by mouth twice a day Echocardiogram 10/06 revealed EF 60%. Left atrial dilatation. No regional wall motion abnormality. Echocardiogram 12/06 revealed EF 65-70%. Trace TR. Normal pulmonary pressures. Noted CT chest revealed 4.5 fusiform dilatation of the aorta at the retrocardiac with cardiomegaly Holding home medication spironolactone 12.5 mg by mouth daily/home medication Start on low-dose Lasix 20 mg IV daily 12/05 per pulmonology Will give a dose Zaroxolyn today to assist with diuresis /FEN: Monitor renal function, I/O's, electrolytes replacement per protocol; GI: Cholelithiasis Hypoalbuminemia On Pepcid for GI prophylaxis, Continue with tube feeds- Jevity 1.5@55ml/hr Lynn-Colace for bowel regimen ID: CAP Continue with abx (Aztreonam, Azithromycin, Flagyl)monitor for signs of infections ( Fever, WBC) Strep pneumonia and Legionella urinary Ag negative. Pertinent cultures 12/02 - sputum - negative 12/01 - blood cultures 2 - no growth 12/01 - urine - negative Negative influenza Heme: Normocytic anemia Chronic Xarelto use Bilateral posterior tibial nonocclusive DVT Monitor CBC On Xarelto 20 mg by mouth daily On iron sulfate 325 mg by mouth 3 times a day Endo: Hypothyroidism SSI for glycemic control GI prophylaxis- on Pepcid DVT Protonix- Xarelto 20mg daily (home med) Critical Care: The total critical care time was 35 minutes. Time to perform other separately billable procedures was not included in the critical care time. Nato Browne MD Dec 07, 2016 09:07
[2016-12-07] MEDS: RESP: BUDESONIDE 0.5 MG/2 ML NEB NEB SCH ×2 (09:23→23:04)
[2016-12-07] MEDS ORDERED: DEXMEDETOMIDINE HCL 200 MCG/2 ML VIAL ONE (09:48)
[2016-12-07] MEDS ORDERED: DEXMEDETOMIDINE INJ 200 MCG in SODIUM CHLORIDE 0.9% INJ 50 ML IV SCH (10:00)
[2016-12-07] MEDS: AZITHROMYCIN INJ 500 MG in SODIUM CHLOR 0.9% 250 ML INJ 250 ML IV SCH (13:01)
--- NOTE | 2016-12-07 14:14 | HHI.PR ---
Subjective Remarks ASS: ON THE VENT SEDATED Objective Vital Signs Date Time Temp Pulse Resp B/P Pulse Ox O2 Delivery O2 Flow Rate FiO2 12/07/16 11:56 91 40 12/07/16 11:00 87 28 96 12/07/16 10:30 80 30 172/84 96 12/07/16 10:00 73 29 159/83 96 12/07/16 10:00 73 12/07/16 09:30 78 31 166/82 96 12/07/16 09:24 40 12/07/16 09:24 96 40 12/07/16 09:00 72 21 162/77 96 12/07/16 08:30 73 19 160/78 96 12/07/16 08:00 98.7 71 18 142/73 96 12/07/16 08:00 40 12/07/16 08:00 75 12/07/16 07:27 96 40 12/07/16 06:00 75 12/07/16 04:00 99.1 58 20 133/65 93 12/07/16 04:00 40 12/07/16 03:17 93 40 12/07/16 02:00 60 12/07/16 00:55 92 40 12/07/16 00:00 99.0 66 22 137/74 91 12/07/16 00:00 66 12/07/16 00:00 40 12/06/16 22:00 68 12/06/16 21:51 92 40 12/06/16 20:00 99.4 58 17 113/65 92 12/06/16 20:00 40 12/06/16 20:00 58 12/06/16 19:37 92 40 12/06/16 18:00 59 12/06/16 16:00 40 12/06/16 16:00 64 12/06/16 16:00 98.8 64 18 128/66 93 12/06/16 15:15 40 12/06/16 15:14 94 40 I/O 12/06/16 12/06/16 12/06/16 12/07/16 12/07/16 12/07/16 07:00 15:00 23:00 07:00 15:00 23:00 Intake Total 443 ml 979 ml 1004 ml 1313 ml Output Total 250 ml 1000 ml 600 ml 700 ml Balance 193 ml -21 ml 404 ml 613 ml Intake IV Total 264 ml 613 ml 610 ml 560 ml Tube Feeding 79 ml 246 ml 234 ml 233 ml Tube Irrigant 160 ml 120 ml Other 100 ml 120 ml 400 ml Output Urine Total 250 ml 1000 ml 600 ml 700 ml # Bowel Movements 0 0 0 Result Diagram: 12/07/1654012/07/16540 Objective Remarks GENERAL: SKIN: Warm and dry. HEAD: Atraumatic. Normocephalic. EYES: Pupils equal and round. No scleral icterus. No injection or drainage. ENT: No nasal bleeding or discharge. Mucous membranes pink and moist. NECK: Trachea midline. No JVD. CARDIOVASCULAR: Regular rate and rhythm. RESPIRATORY: No accessory muscle use. Clear to auscultation. Breath sounds equal bilaterally. GASTROINTESTINAL: Abdomen soft, non-tender, nondistended. Hepatic and splenic margins not palpable. MUSCULOSKELETAL: Extremities without clubbing, cyanosis, or edema. No obvious deformities. NEUROLOGICAL: Awake and alert. No obvious cranial nerve deficits. Motor grossly within normal limits. Five out of 5 muscle strength in the arms and legs. Normal speech. PSYCHIATRIC: Appropriate mood and affect; insight and judgment normal. Assessment and Plan Assessment and Plan ASSRESPIRATORY FAILURE PNA PLAN: VENT SUPPORT WEAN TOLERATED Mari Guerra MD Dec 07, 2016 14:14
[2016-12-07] MEDS ORDERED: ETOMIDATE 20 MG/10 ML VIAL ONE (15:15)
[2016-12-07] MEDS: ACETAMINOPHEN 325 MG TAB PO PRN (19:15)
[2016-12-07] MEDS: POLYETHYLENE GLYCOL 17 GM PKG PO SCH (19:18)
[2016-12-07] MEDS: ALPRAZolam 0.25 MG TAB PO PRN (20:20)
[2016-12-07] MEDS ORDERED: ENALAPRILAT 2.5 MG/2 ML VIAL IV PUSH PRN (23:30)
[2016-12-07] MEDS: hydrALAZINE HCL 20 MG/ML VIAL IV PUSH PRN (23:32)
[2016-12-08] VITALS (16 sets, daily range): BP systolic 133–172; BP diastolic 66–89; PULSE 57–106; RESP 18–30; TEMP 98–98.9; O2SAT 90–98
[2016-12-08] MEDS: RESP: ALBUTEROL 2.5 MG/IPRATROPIUM 0.5 MG NEB (SCH) INH ×4 (00:37→19:33)
[2016-12-08] MEDS: metroNIDAZOLE 500 MG INJ 100 ML IV SCH ×4 (02:55→21:29)
[2016-12-08] MEDS: AZTREONAM INJ 2,000 MG in SODIUM CHLORIDE 0.9% INJ 100 ML IV SCH ×3 (02:55→17:38)
[2016-12-08] MEDS: ALPRAZolam 0.25 MG TAB PO PRN ×2 (03:37→18:38)
[2016-12-08] MEDS: ACETAMINOPHEN 325 MG TAB PO PRN ×2 (03:37→17:38)
[2016-12-08] MEDS: CHLORHEXIDINE GLUCONATE 2 % 1 PACK (2 CLOTHS) TOP SCH (03:38)
[2016-12-08] MEDS: LEVALBUTEROL 1.25 MG NEB PRN ×2 (03:56→18:29)
[2016-12-08] MEDS: METOCLOPRAMIDE HCL 10 MG/2 ML VIAL IV PUSH SCH ×3 (05:58→21:29)
[2016-12-08] MEDS: FREE WATER G-TUBE SCH (05:59)
[2016-12-08] MEDS: methylPREDNISolone SOD SUCC 40 MG/1 ML VIAL IV SCH ×3 (05:59→21:29)
[2016-12-08] MEDS: LEVOTHYROXINE SODIUM 25 MCG TAB PO SCH (05:59)
[2016-12-08] MEDS: INSULIN NovoLIN REGULAR SUPPLEMENTAL SCALE SQ SCH ×3 (06:00→17:47)
[2016-12-08 06:25] LABS: AUTOMATED NEUTROPHIL # 11.6 TH/MM3 (1.8-7.7); BASOPHIL % 0.3 % (0.0-2.0); HEMATOCRIT 32.9 % (35.0-46.0); LYMPH % 9.6 % (9.0-44.0); LYMPHOCYTE # 1.3 TH/MM3 (1.0-4.8); MEAN CELL VOLUME 94.4 FL (80.0-100.0); MEAN CORPUSCULAR HEMOGLOBIN 30.6 PG (27.0-34.0); MEAN CORPUSCULAR HGB CONC 32.4 % (32.0-36.0); MONO % 5.5 % (0.0-8.0); NEUT % 84.6 % (16.0-70.0); PLATELET COUNT 197 TH/MM3 (150-450); RED BLOOD COUNT 3.49 MIL/MM3 (4.00-5.30); RED CELL DISTRIBUTION WIDTH 18.2 % (11.6-17.2); WHITE BLOOD COUNT 13.7 TH/MM3 (4.0-11.0)
--- NOTE | 2016-12-08 06:36 | RADRPT ---
EXAM DATE/TIME: 12/08/2016 04:21 [facility] COMPARISON: CHEST SINGLE AP, December 07, 2016, 3:13. INDICATIONS : Shortness of breath, possible pulmonary disease. MEDICAL HISTORY : Chronic obstructive pulmonary disease. Deep venous thrombosis. SURGICAL HISTORY : None. ENCOUNTER: Subsequent ACUITY: 1 week PAIN SCORE: Non-responsive. LOCATION: Bilateral chest FINDINGS: Mild perihilar and basilar consolidation with small pleural effusions not significantly changed. No p neumothorax. Heart size stable, upper limits of normal. Endotracheal tube and nasogastric tube out. CONCLUSION: Mild bibasilar consolidation and small effusions not significantly changed. Patient has been extubate vitaly Springer MD on December 08, 2016 at 6:33 Board Certified Radiologist. This report was verified electronically.
[2016-12-08 06:37] LABS: HEMO FLAGS AUTO DIFF
[2016-12-08 06:55] LABS: ALT (GPT) 32 U/L (10-53); ANION GAP 7 MEQ/L (5-15); AST (GOT) 20 U/L (15-37); BICARBONATE 30.6 MEQ/L (21.0-32.0); BLOOD UREA NITROGEN 39 MG/DL (7-18); CHLORIDE 104 MEQ/L (98-107); GLOMERULAR FILTRATION RATE 90 ML/MIN (>89); MAGNESIUM 2.7 MG/DL (1.5-2.5); POTASSIUM 4.3 MEQ/L (3.5-5.1); SODIUM (NA) 142 MEQ/L (136-145)
[2016-12-08 06:57] LABS: ALKALINE PHOSPHATASE 26 U/L (45-117); TOTAL BILIRUBIN ADULT 0.3 MG/DL (0.2-1.0)
[2016-12-08] MEDS: CHLORHEXIDINE 0.12% (ORAL KIT) 15 ML CUP MT SCH ×2 (08:00→20:00)
[2016-12-08 08:12] LABS: BANDS 2 % (0-6); CORRECTED NUCLEATED RBC 1 /100 WBC (0-0); METAMYELOCYTES 1 % (0-1); NEUTROPHIL # MANUAL DIFF 12.1 TH/MM3 (1.8-7.7); PLATELET ESTIMATE SMEAR NORMAL (NORMAL); PLATELET MORPHOLOGY NORMAL (NORMAL); POLYS (SEG NEUTROPHILS) 85 % (16-70); SCAN/DIFF FINAL DIFF MANUAL; WBC DIFF SAMPLE 100
[2016-12-08] MEDS: RESP: BUDESONIDE 0.5 MG/2 ML NEB NEB SCH ×2 (08:25→19:33)
[2016-12-08] MEDS: CYCLOBENZAPRINE HCL 10 MG TAB PO SCH ×3 (08:34→17:38)
[2016-12-08] MEDS: LACTOBACILLUS ACIDOPHILUS TAB PO SCH ×2 (08:34→20:11)
[2016-12-08] MEDS: amLODIPine BESYLATE 5 MG TAB PO SCH (08:34)
[2016-12-08] MEDS: GABAPENTIN 300 MG CAP PO SCH ×3 (08:34→17:38)
[2016-12-08] MEDS: DOCUSATE SODIUM 50 MG/SENNA 8.6 MG TAB PO SCH ×2 (08:34→20:11)
[2016-12-08] MEDS: FERROUS SULFATE 300 MG /5ML UDC PO SCH ×2 (08:35→20:11)
[2016-12-08] MEDS: FAMOTIDINE 20 MG TAB NG SCH (08:35)
[2016-12-08] MEDS: FUROSEMIDE 20 MG/2 ML VIAL IV PUSH SCH (08:35)
[2016-12-08] MEDS: RIVAROXABAN 20 MG TAB PO SCH (08:35)
[2016-12-08] MEDS: SODIUM CHLORIDE 0.9% FLUSH 10 ML FLUSH SCH ×2 (08:39→20:12)
[2016-12-08] MEDS ORDERED: ALPRAZolam 0.25 MG TAB PO PRN (09:15)
--- NOTE | 2016-12-08 09:19 | HHI.CCPN ---
Subjective Remarks/Hospital Course 76-year-old female presents with a history of shortness of breath that started at home. She has also altered mental status. Normally patient is awake with eyes open and answers questions right away. EMS reports pt received a muscle relaxer just prior to their arrival. She has received albuterol x 2 en route with however her CO2 Climbing on the BiPAP machine and she became more lethargic with less responsiveness. She was intubated in the emergency department by ER attending for an airway protection. 12/03 Patient is sedated with Diprivan and intubated. Afebrile. On ACV with PEEP: 10, FIO2 45. 12/04: Afebrile. Arousable on propofol at 50 mcg/kg/m. PEEP is currently around 7. Tolerating tube feeds. Positive BM. 12/05: Afebrile. Currently all sedation currently off with only one working IV. PEEP 8. Tolerating tube feeding. Positive BM 3 yesterday. 12/06: Currently on PSV trial. Adequate urine output. Difficulty in obtaining peripheral blood draws. Positive BM. Tolerating tube feeding. Awake and alert and following commands. Subjective 12/07: On sedation vacation about initiates PSV trial. Lasted around 8 hours yesterday. Continue diuresis. Tolerating tube feeding. Positive BM. 12/08 Patient was extubated yesterday now on partial rebreather with good sats. Hypertensive. Objective Vital Signs Date Time Temp Pulse Resp B/P Pulse Ox O2 Delivery O2 Flow Rate FiO2 12/08/16 08:27 92 Partial Rebreather 12.00 12/08/16 06:00 79 12/08/16 04:37 20 12/08/16 04:00 98.6 170/81 12/07/16 14:40 50 Intake and Output 12/07/16 12/07/16 12/07/16 07:59 15:59 23:59 Intake Total 1313 ml 766 ml 624 ml Output Total 700 ml 1700 ml 650 ml Balance 613 ml -934 ml -26 ml Result Diagram: 12/08/16 0554 12/08/16 0554 Other Results Laboratory Tests Test 12/08/16 05:54 White Blood Count 13.7 TH/MM3 Red Blood Count 3.49 MIL/MM3 Hemoglobin 10.7 GM/DL Hematocrit 32.9 % Mean Corpuscular Volume 94.4 FL Mean Corpuscular Hemoglobin 30.6 PG Mean Corpuscular Hemoglobin 32.4 % Concent Red Cell Distribution Width 18.2 % Platelet Count 197 TH/MM3 Mean Platelet Volume 9.3 FL Neutrophils (%) (Auto) 84.6 % Lymphocytes (%) (Auto) 9.6 % Monocytes (%) (Auto) 5.5 % Eosinophils (%) (Auto) 0.0 % Basophils (%) (Auto) 0.3 % Neutrophils # (Auto) 11.6 TH/MM3 Lymphocytes # (Auto) 1.3 TH/MM3 Monocytes # (Auto) 0.8 TH/MM3 Eosinophils # (Auto) 0.0 TH/MM3 Basophils # (Auto) 0.0 TH/MM3 CBC Comment AUTO DIFF Differential Total Cells 100 Counted Neutrophils % (Manual) 85 % Band Neutrophils % 2 % Lymphocytes % 6 % Monocytes % 6 % Neutrophils # (Manual) 12.1 TH/MM3 Metamyelocytes 1 % Nucleated Red Blood Cells 1 /100 WBC Differential Comment FINAL DIFF MANUAL Platelet Estimate NORMAL Platelet Morphology Comment NORMAL Red Cell Morphology Comment NORMAL Sodium Level 142 MEQ/L Potassium Level 4.3 MEQ/L Chloride Level 104 MEQ/L Carbon Dioxide Level 30.6 MEQ/L Anion Gap 7 MEQ/L Blood Urea Nitrogen 39 MG/DL Creatinine 0.64 MG/DL Estimat Glomerular Filtration 90 ML/MIN Rate Random Glucose 122 MG/DL Calcium Level 8.1 MG/DL Phosphorus Level 2.6 MG/DL Magnesium Level 2.7 MG/DL Total Bilirubin 0.3 MG/DL Aspartate Amino Transf 20 U/L (AST/SGOT) Alanine Aminotransferase 32 U/L (ALT/SGPT) Alkaline Phosphatase 26 U/L Total Protein 5.4 GM/DL Albumin 2.4 GM/DL Imaging Last Impressions Chest X-Ray 12/08/16 0600 Signed Impressions: Service Date/Time: Thursday, December 08, 2016 04:21 - CONCLUSION: Mild bibasilar consolidation and small effusions not significantly changed. Patient has been extubated. Jasper Springer MD Renal Ultrasound 12/04/16 0000 Signed Impressions: Service Date/Time: November 17:52 - CONCLUSION: 1. Numerous cysts and chronic parenchymal disease of both kidneys. No evidence of obstructive uropathy or other acute abnormality. 2. Fuentes catheter present. Urinary bladder grossly unremarkable. 3. Cholelithiasis incidentally noted. Jasper Springer MD Lower Extremity Ultrasound 12/03/16 0000 Signed Impressions: Service Date/Time: Saturday, December 03, 2016 09:17 - CONCLUSION: Nonocclusive deep venous thrombus within the posterior tibial veins bilaterally. Galen Pierre MD Liver Ultrasound 12/02/16 0000 Signed Impressions: Service Date/Time: Friday, December 02, 2016 17:19 - CONCLUSION: 1. Common bile duct upper limits of normal caliber for a patient this age. No duct stone. 2. Several stones in the gallbladder measuring up to 14 mm in size. No evidence of acute cholecystitis Jasper Springer MD Chest CT 12/02/16 0000 Signed Impressions: Service Date/Time: Friday, December 02, 2016 10:46 - CONCLUSION: 1. Small bilateral pleural effusions with adjacent alveolar consolidations (right slightly worse than left) consistent with atelectasis and/or pneumonia. Clinical correlation is recommended. 2. Patchiness within the right upper lobe consistent with possible pneumonia. Clinical correlation is recommended. 3. Cardiomegaly, coronary artery calcifications and mitral annulus calcifications. 4. 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 5. Cholelithiasis. 6. Multiple simple and complex renal cysts bilaterally. 7. Degenerative changes and scoliosis of the thoracolumbar spine. 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 Anuradha Anthony MD Objective Remarks GENERAL: Patient is 76 yo on partial rebreather with good sats SKIN: Warm and dry. HEAD: Normocephalic. EYES: No scleral icterus. No injection or drainage. NECK: Supple, trachea midline. No JVD or lymphadenopathy. CARDIOVASCULAR: Regular rate and rhythm without murmurs, gallops, or rubs. RESPIRATORY: Breath sounds equal bilaterally. No accessory muscle use. GASTROINTESTINAL: Abdomen soft, non-tender, nondistended. MUSCULOSKELETAL: No cyanosis, or edema. BACK: Nontender without obvious deformity. No CVA tenderness. A/P Assessment and Plan Neuro/Psych: Fibromyalgia History of right posterior frontal lobe CVA Chronic benzodiazepine use Chronic opiate use Monitor neuro status , place on Xanax 0.25mg PO Q8 PRN anxiety CT head on admission revealed old cephalization of the right posterior frontal lobe. 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 On Norvasc 5mg daily, place on metoprolol 25mg PO BID Echocardiogram 10/06 revealed EF 60%. Left atrial dilatation. No regional wall motion abnormality. Echocardiogram 12/06 revealed EF 65-70%. Trace TR. Normal pulmonary pressures. Noted CT chest revealed 4.5 fusiform dilatation of the aorta at the retrocardiac with cardiomegaly /FEN: Monitor renal function, I/O's, electrolytes replacement per protocol; On Lasix 20mg daily GI: Cholelithiasis Hypoalbuminemia On Pepcid for GI prophylaxis, Lynn-Colace for bowel regimen Start PO diet ID: CAP Continue with abx (Aztreonam, Azithromycin, Flagyl)monitor for signs of infections ( Fever, WBC) Strep pneumonia and Legionella urinary Ag negative. Pertinent cultures 12/02 - sputum - negative 12/01 - blood cultures 2 - no growth 12/01 - urine - negative Negative influenza Heme: Normocytic anemia Chronic Xarelto use Bilateral posterior tibial nonocclusive DVT Monitor CBC On Xarelto 20 mg by mouth daily On iron sulfate 325 mg by mouth 3 times a day Endo: Hypothyroidism SSI for glycemic control On Synthroid 25mcg daily, TSH 12/05: 8.0 GI prophylaxis- on Pepcid DVT Protonix- Xarelto 20mg daily (home med) level 3 Eve Davis MD Dec 08, 2016 09:19 Hypothyroidism SSI for glycemic control GI prophylaxis- on Pepcid DVT Protonix- Xarelto 20mg daily (home med) Critical Care: The total critical care time was 35 minutes. Time to perform other separately billable procedures was not included in the critical care time. Eve Davis MD Dec 08, 2016 09:19
[2016-12-08] MEDS: METOPROLOL TARTRATE 25 MG TAB PO SCH ×2 (10:58→20:11)
[2016-12-08] MEDS: oxyCODONE/ACETAMINOPHEN 5 MG/325 MG TAB PO PRN ×2 (13:23→21:30)
[2016-12-08] MEDS: AZITHROMYCIN INJ 500 MG in SODIUM CHLOR 0.9% 250 ML INJ 250 ML IV SCH (13:45)
--- NOTE | 2016-12-08 18:24 | HHI.PR ---
Subjective Remarks 76 YOWf with Severe COPD, known to me from office has multiple admissions in the hosp Extubated 12/07 On PRB Appetite poor On Soft diet Objective Vital Signs Vital Signs Date Time Temp Pulse Resp B/P Pulse Ox O2 Delivery O2 Flow Rate FiO2 12/08/16 18:00 75 12/08/16 16:00 74 12/08/16 16:00 98.9 74 30 151/72 90 12/08/16 14:23 16 12/08/16 14:00 68 12/08/16 13:00 64 12/08/16 12:01 57 12/08/16 12:00 57 12/08/16 12:00 98.3 57 18 133/66 95 12/08/16 10:00 91 12/08/16 10:00 89 30 145/69 94 12/08/16 08:27 92 Partial Rebreather 12.00 12/08/16 08:00 98.8 85 28 149/89 90 12/08/16 08:00 80 12/08/16 07:00 97 Partial Non-Rebreather 15.00 12/08/16 06:00 79 12/08/16 04:37 20 12/08/16 04:00 82 12/08/16 04:00 98.6 82 20 170/81 94 12/08/16 02:00 92 12/08/16 00:00 98.0 106 24 172/77 91 12/08/16 00:00 106 12/08/16 00:00 98.0 12/07/16 22:00 97 12/07/16 20:31 92 Partial Rebreather 12.00 12/07/16 20:00 88 12/07/16 20:00 97.7 88 18 179/88 94 12/07/16 19:00 92 Partial Non-Rebreather 15.00 I/O 12/07/16 12/07/16 12/07/16 12/08/16 12/08/16 12/08/16 07:00 15:00 23:00 07:00 15:00 23:00 Intake Total 1313 ml 766 ml 624 ml 370 ml 640 ml Output Total 700 ml 1700 ml 650 ml 1000 ml 1800 ml Balance 613 ml -934 ml -26 ml -630 ml -1160 ml Intake Oral 240 ml 120 ml 240 ml IV Total 560 ml 473 ml 384 ml 250 ml 400 ml Tube Feeding 233 ml 293 ml Tube Irrigant 120 ml Other 400 ml Output Urine Total 700 ml 1700 ml 650 ml 1000 ml 1800 ml # Bowel Movements 0 0 3 2 3 Result Diagram: 12/08/16 0554 12/08/16 0554 Objective Remarks GENERAL: MBMN Wf, on vent, sedated SKIN: Warm and dry. HEAD: Normocephalic. EYES: No scleral icterus. No injection or drainage. NECK: Supple, trachea midline. No JVD or lymphadenopathy. CARDIOVASCULAR: Regular rate and rhythm without murmurs, gallops, or rubs. RESPIRATORY: Breath sounds equal bilaterally. No accessory muscle use. GASTROINTESTINAL: Abdomen soft, non-tender, nondistended. MUSCULOSKELETAL: No cyanosis, or edema. BACK: Nontender without obvious deformity. No CVA tenderness. A/P Assessment and Plan VDRF Severe COPD Pneumonia AF CHF Pleural effusion PLAN: PRM, keep sat >90% Aerosol nebs Cont Abx Xarelto daily Diurease BIPAP prn sob 03/26 Arvind Cummings MD Dec 08, 2016 18:24
[2016-12-08] MEDS: POLYETHYLENE GLYCOL 17 GM PKG PO SCH (20:11)
[2016-12-09] VITALS (15 sets, daily range): BP systolic 118–174; BP diastolic 62–86; PULSE 63–85; RESP 19–32; TEMP 98–99.5; O2SAT 88–98
[2016-12-09] MEDS: AZTREONAM INJ 2,000 MG in SODIUM CHLORIDE 0.9% INJ 100 ML IV SCH (00:35)
[2016-12-09] MEDS: hydrALAZINE HCL 20 MG/ML VIAL IV PUSH PRN (00:35)
[2016-12-09] MEDS: ACETAMINOPHEN 325 MG TAB PO PRN ×2 (01:03→17:19)
[2016-12-09] MEDS: LEVALBUTEROL 1.25 MG NEB PRN (01:37)
[2016-12-09] MEDS: ALPRAZolam 0.25 MG TAB PO PRN ×2 (01:48→22:35)
[2016-12-09] MEDS: CHLORHEXIDINE GLUCONATE 2 % 1 PACK (2 CLOTHS) TOP SCH (03:32)
[2016-12-09] MEDS: metroNIDAZOLE 500 MG INJ 100 ML IV SCH (03:40)
[2016-12-09] MEDS: oxyCODONE/ACETAMINOPHEN 5 MG/325 MG TAB PO PRN ×3 (03:40→20:57)
[2016-12-09] MEDS: RESP: ALBUTEROL 2.5 MG/IPRATROPIUM 0.5 MG NEB (SCH) INH (03:49)
[2016-12-09 05:44] LABS: AUTOMATED NEUTROPHIL # 7.9 TH/MM3 (1.8-7.7); BASOPHIL % 0.1 % (0.0-2.0); HEMATOCRIT 32.4 % (35.0-46.0); HEMO FLAGS DIFF FINAL; LYMPH % 12.4 % (9.0-44.0); LYMPHOCYTE # 1.2 TH/MM3 (1.0-4.8); MEAN CELL VOLUME 94.2 FL (80.0-100.0); MEAN CORPUSCULAR HEMOGLOBIN 30.3 PG (27.0-34.0); MEAN CORPUSCULAR HGB CONC 32.2 % (32.0-36.0); MONO % 4.8 % (0.0-8.0); NEUT % 82.7 % (16.0-70.0); PLATELET COUNT 191 TH/MM3 (150-450); RED BLOOD COUNT 3.44 MIL/MM3 (4.00-5.30); RED CELL DISTRIBUTION WIDTH 17.7 % (11.6-17.2); WHITE BLOOD COUNT 9.5 TH/MM3 (4.0-11.0)
[2016-12-09] MEDS: INSULIN NovoLIN REGULAR SUPPLEMENTAL SCALE SQ SCH ×4 (06:00→18:00)
[2016-12-09 06:09] LABS: BICARBONATE 32.4 MEQ/L (21.0-32.0); MAGNESIUM 2.7 MG/DL (1.5-2.5); POTASSIUM 4.3 MEQ/L (3.5-5.1)
[2016-12-09] MEDS: METOCLOPRAMIDE HCL 10 MG/2 ML VIAL IV PUSH SCH ×3 (06:48→20:56)
[2016-12-09] MEDS: LEVOTHYROXINE SODIUM 25 MCG TAB PO SCH (06:48)
[2016-12-09] MEDS: methylPREDNISolone SOD SUCC 40 MG/1 ML VIAL IV SCH ×3 (06:48→20:58)
[2016-12-09] MEDS ORDERED: RESP: ALBUTEROL 2.5 MG/IPRATROPIUM 0.5 MG NEB (PRN) ONE (07:36)
[2016-12-09] MEDS: RESP: BUDESONIDE 0.5 MG/2 ML NEB NEB SCH ×2 (07:41→20:18)
[2016-12-09] MEDS: CHLORHEXIDINE 0.12% (ORAL KIT) 15 ML CUP MT SCH ×2 (07:53→20:00)
[2016-12-09] MEDS: SODIUM CHLORIDE 0.9% FLUSH 10 ML FLUSH SCH ×2 (07:53→20:57)
[2016-12-09] MEDS: FUROSEMIDE 20 MG/2 ML VIAL IV PUSH SCH (07:54)
[2016-12-09] MEDS: LACTOBACILLUS ACIDOPHILUS TAB PO SCH ×2 (07:54→20:56)
[2016-12-09] MEDS: FAMOTIDINE 20 MG TAB NG SCH (07:54)
[2016-12-09] MEDS: METOPROLOL TARTRATE 25 MG TAB PO SCH ×2 (07:54→20:56)
[2016-12-09] MEDS: RIVAROXABAN 20 MG TAB PO SCH (07:55)
[2016-12-09] MEDS: GABAPENTIN 300 MG CAP PO SCH ×3 (07:55→18:00)
[2016-12-09] MEDS: FERROUS SULFATE 300 MG /5ML UDC PO SCH ×2 (07:55→20:56)
[2016-12-09] MEDS: CYCLOBENZAPRINE HCL 10 MG TAB PO SCH ×3 (07:55→18:00)
[2016-12-09] MEDS: DOCUSATE SODIUM 50 MG/SENNA 8.6 MG TAB PO SCH ×2 (07:55→20:56)
[2016-12-09] MEDS: amLODIPine BESYLATE 5 MG TAB PO SCH (07:55)
--- NOTE | 2016-12-09 09:57 | HHI.CCPN ---
Subjective Remarks/Hospital Course 76-year-old female presents with a history of shortness of breath that started at home. She has also altered mental status. Normally patient is awake with eyes open and answers questions right away. EMS reports pt received a muscle relaxer just prior to their arrival. She has received albuterol x 2 en route with however her CO2 Climbing on the BiPAP machine and she became more lethargic with less responsiveness. She was intubated in the emergency department by ER attending for an airway protection. 12/03 Patient is sedated with Diprivan and intubated. Afebrile. On ACV with PEEP: 10, FIO2 45. 12/04: Afebrile. Arousable on propofol at 50 mcg/kg/m. PEEP is currently around 7. Tolerating tube feeds. Positive BM. 12/05: Afebrile. Currently all sedation currently off with only one working IV. PEEP 8. Tolerating tube feeding. Positive BM 3 yesterday. 12/06: Currently on PSV trial. Adequate urine output. Difficulty in obtaining peripheral blood draws. Positive BM. Tolerating tube feeding. Awake and alert and following commands. Subjective 12/07: On sedation vacation about initiates PSV trial. Lasted around 8 hours yesterday. Continue diuresis. Tolerating tube feeding. Positive BM. 12/08 Patient was extubated yesterday now on partial rebreather with good sats. Hypertensive. 12/09 No events overnight. Patient is on 50%VM. Afebrile. Objective Vital Signs Date Time Temp Pulse Resp B/P Pulse Ox O2 Delivery O2 Flow Rate FiO2 12/09/16 09:03 88 Nasal Cannula 4.00 12/09/16 08:00 50 12/09/16 06:00 83 12/09/16 04:00 99.1 20 118/62 Intake and Output 12/08/16 12/08/16 12/08/16 07:59 15:59 23:59 Intake Total 370 ml 640 ml Output Total 1000 ml 1800 ml 700 ml Balance -630 ml -1160 ml -700 ml Result Diagram: 12/09/1651712/09/16517 Other Results Laboratory Tests Test 12/09/16 05:18 White Blood Count 9.5 TH/MM3 Red Blood Count 3.44 MIL/MM3 Hemoglobin 10.4 GM/DL Hematocrit 32.4 % Mean Corpuscular Volume 94.2 FL Mean Corpuscular Hemoglobin 30.3 PG Mean Corpuscular Hemoglobin 32.2 % Concent Red Cell Distribution Width 17.7 % Platelet Count 191 TH/MM3 Mean Platelet Volume 9.3 FL Neutrophils (%) (Auto) 82.7 % Lymphocytes (%) (Auto) 12.4 % Monocytes (%) (Auto) 4.8 % Eosinophils (%) (Auto) 0.0 % Basophils (%) (Auto) 0.1 % Neutrophils # (Auto) 7.9 TH/MM3 Lymphocytes # (Auto) 1.2 TH/MM3 Monocytes # (Auto) 0.5 TH/MM3 Eosinophils # (Auto) 0.0 TH/MM3 Basophils # (Auto) 0.0 TH/MM3 CBC Comment DIFF FINAL Differential Comment Sodium Level 141 MEQ/L Potassium Level 4.3 MEQ/L Chloride Level 104 MEQ/L Carbon Dioxide Level 32.4 MEQ/L Anion Gap 5 MEQ/L Blood Urea Nitrogen 40 MG/DL Creatinine 0.67 MG/DL Estimat Glomerular Filtration 85 ML/MIN Rate Random Glucose 138 MG/DL Calcium Level 8.5 MG/DL Phosphorus Level 2.9 MG/DL Magnesium Level 2.7 MG/DL Imaging Last Impressions Chest X-Ray 12/08/16 0600 Signed Impressions: Service Date/Time: Thursday, December 08, 2016 04:21 - CONCLUSION: Mild bibasilar consolidation and small effusions not significantly changed. Patient has been extubated. Jasper Springer MD Renal Ultrasound 12/04/16 0000 Signed Impressions: Service Date/Time: November 17:52 - CONCLUSION: 1. Numerous cysts and chronic parenchymal disease of both kidneys. No evidence of obstructive uropathy or other acute abnormality. 2. Fuentes catheter present. Urinary bladder grossly unremarkable. 3. Cholelithiasis incidentally noted. Jasper Springer MD Lower Extremity Ultrasound 12/03/16 0000 Signed Impressions: Service Date/Time: Saturday, December 03, 2016 09:17 - CONCLUSION: Nonocclusive deep venous thrombus within the posterior tibial veins bilaterally. Galen Pierre MD Liver Ultrasound 12/02/16 0000 Signed Impressions: Service Date/Time: Friday, December 02, 2016 17:19 - CONCLUSION: 1. Common bile duct upper limits of normal caliber for a patient this age. No duct stone. 2. Several stones in the gallbladder measuring up to 14 mm in size. No evidence of acute cholecystitis Jasper Springer MD Chest CT 12/02/16 0000 Signed Impressions: Service Date/Time: Friday, December 02, 2016 10:46 - CONCLUSION: 1. Small bilateral pleural effusions with adjacent alveolar consolidations (right slightly worse than left) consistent with atelectasis and/or pneumonia. Clinical correlation is recommended. 2. Patchiness within the right upper lobe consistent with possible pneumonia. Clinical correlation is recommended. 3. Cardiomegaly, coronary artery calcifications and mitral annulus calcifications. 4. 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 5. Cholelithiasis. 6. Multiple simple and complex renal cysts bilaterally. 7. Degenerative changes and scoliosis of the thoracolumbar spine. 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 Anuradha Anthony MD Objective Remarks GENERAL: Patient is 76 yo on 50%VM with good sats SKIN: Warm and dry. HEAD: Normocephalic. EYES: No scleral icterus. No injection or drainage. NECK: Supple, trachea midline. No JVD or lymphadenopathy. CARDIOVASCULAR: Regular rate and rhythm without murmurs, gallops, or rubs. RESPIRATORY: Breath sounds equal bilaterally. No accessory muscle use. GASTROINTESTINAL: Abdomen soft, non-tender, nondistended. MUSCULOSKELETAL: No cyanosis, or edema. BACK: Nontender without obvious deformity. No CVA tenderness. A/P Assessment and Plan Neuro/Psych: Fibromyalgia History of right posterior frontal lobe CVA Chronic benzodiazepine use Chronic opiate use Monitor neuro status , on Xanax 0.25mg PO Q8 PRN anxiety CT head on admission revealed old cephalization of the right posterior frontal lobe. Neurontin 600 mill grams by mouth 3 times a day/home medication Pulm: Acute hypoxemic respiratory failure- Extubated 12/07 History COPD Community acquired pneumonia Wean down oxygen as christophe keep sat >92% Pulmicort 0.5/2 one inhalation twice a day Bronchodilators , Solumederol 40mg Q8 CT chest revealed bilateral lower lobe pneumonia/right upper lobe pneumonia Pulm is following- Dr. 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 On Norvasc 5mg daily, Increase metoprolol 50mg PO BID Echocardiogram 10/06 revealed EF 60%. Left atrial dilatation. No regional wall motion abnormality. Echocardiogram 12/06 revealed EF 65-70%. Trace TR. Normal pulmonary pressures. Noted CT chest revealed 4.5 fusiform dilatation of the aorta at the retrocardiac with cardiomegaly /FEN: Monitor renal function, I/O's, electrolytes replacement per protocol; On Lasix 20mg daily GI: Cholelithiasis Hypoalbuminemia On Pepcid for GI prophylaxis, Lynn-Colace for bowel regimen On PO diet ID: CAP On abx (Aztreonam, Azithromycin, Flagyl) since 12/02 monitor for signs of infections ( Fever, WBC) Patient has been on abx since 12/02 all cultures are negative and patient is afebrile. Will d/c abx and observe. Strep pneumonia and Legionella urinary Ag negative. Pertinent cultures 12/02 - sputum - negative 12/01 - blood cultures 2 - no growth 12/01 - urine - negative Negative influenza Heme: Normocytic anemia Chronic Xarelto use Bilateral posterior tibial nonocclusive DVT Monitor CBC On Xarelto 20 mg by mouth daily On iron sulfate 325 mg by mouth 3 times a day Endo: Hypothyroidism SSI for glycemic control On Synthroid 25mcg daily, TSH 12/05: 8.0 GI prophylaxis- on Pepcid DVT Protonix- Xarelto 20mg daily (home med) Will sign off and transfer care to [facility] level 3 Eve Davis MD Dec 09, 2016 09:57
[2016-12-09] MEDS: RESP: ALBUTEROL 2.5 MG/IPRATROPIUM 0.5 MG NEB (SCH) NEB ×4 (10:04→23:24)
[2016-12-09] MEDS: RESP: ALBUTEROL 2.5 MG/IPRATROPIUM 0.5 MG NEB (PRN) NEB (15:25)
--- NOTE | 2016-12-09 18:12 | HHI.PR ---
Subjective Remarks 76 YOWf with Severe COPD, known to me from office has multiple admissions in the hosp Extubated 12/07 Appetite poor On Soft diet Weaned to NC, feels better Objective Vital Signs Vital Signs Date Time Temp Pulse Resp B/P Pulse Ox O2 Delivery O2 Flow Rate FiO2 12/09/16 16:00 99.5 76 19 172/81 93 12/09/16 16:00 76 12/09/16 14:00 79 12/09/16 12:00 77 12/09/16 12:00 98.7 77 32 147/71 91 12/09/16 10:00 72 12/09/16 09:03 88 Nasal Cannula 4.00 12/09/16 08:00 85 12/09/16 08:00 98.2 85 22 162/79 90 12/09/16 08:00 90 Venturi Mask 10.00 50 12/09/16 07:45 98 Non-Rebreather 15.00 100 12/09/16 07:00 94 Partial Non-Rebreather 12.00 12/09/16 06:00 83 12/09/16 04:00 90 Partial Non-Rebreather 12.00 12/09/16 04:00 77 12/09/16 04:00 99.1 77 20 118/62 90 12/09/16 02:03 13 12/09/16 02:00 82 12/09/16 00:00 98.0 65 20 174/86 94 12/09/16 00:00 65 12/08/16 22:00 69 12/08/16 20:00 74 12/08/16 20:00 98.1 74 25 149/77 96 12/08/16 19:33 98 Partial Rebreather 12.00 12/08/16 19:00 96 Partial Non-Rebreather 12.00 I/O 12/08/16 12/08/16 12/08/16 12/09/16 12/09/16 12/09/16 06:59 14:59 22:59 06:59 14:59 22:59 Intake Total 370 ml 640 ml 700 ml 510 ml Output Total 1000 ml 1800 ml 700 ml 550 ml 1200 ml Balance -630 ml -1160 ml -700 ml 150 ml -690 ml Intake Oral 120 ml 240 ml 510 ml IV Total 250 ml 400 ml 700 ml Output Urine Total 1000 ml 1800 ml 700 ml 550 ml 1200 ml # Bowel Movements 2 3 Result Diagram: 12/09/1651712/09/16517 Objective Remarks GENERAL: MBMN Wf, on vent, sedated SKIN: Warm and dry. HEAD: Normocephalic. EYES: No scleral icterus. No injection or drainage. NECK: Supple, trachea midline. No JVD or lymphadenopathy. CARDIOVASCULAR: Regular rate and rhythm without murmurs, gallops, or rubs. RESPIRATORY: Breath sounds equal bilaterally. No accessory muscle use. GASTROINTESTINAL: Abdomen soft, non-tender, nondistended. MUSCULOSKELETAL: No cyanosis, or edema. BACK: Nontender without obvious deformity. No CVA tenderness. A/P Assessment and Plan VDRF, s/p extubation Severe COPD Pneumonia AF CHF Pleural effusion PLAN: Supplement 02, keep sat >90% Aerosol nebs Cont Abx Xarelto daily Diurease BIPAP prn sob 10/ Arvind Cummings MD Dec 09, 2016 18:12
[2016-12-09] MEDS: POLYETHYLENE GLYCOL 17 GM PKG PO SCH (20:56)
[2016-12-09] MEDS ORDERED: MIDAZOLAM HCL 5 MG/ML VIAL (1 ML) ONE ×2 (22:06)
[2016-12-10] VITALS (26 sets, daily range): BP systolic 118–168; BP diastolic 59–86; PULSE 55–93; RESP 20–47; TEMP 98.2–98.9; O2SAT 81–96
[2016-12-10] MEDS: CHLORHEXIDINE GLUCONATE 2 % 1 PACK (2 CLOTHS) TOP SCH (00:44)
[2016-12-10] MEDS: hydrALAZINE HCL 20 MG/ML VIAL IV PUSH PRN (02:05)
[2016-12-10] MEDS: oxyCODONE/ACETAMINOPHEN 5 MG/325 MG TAB PO PRN ×3 (02:27→23:37)
[2016-12-10] MEDS: RESP: ALBUTEROL 2.5 MG/IPRATROPIUM 0.5 MG NEB (SCH) NEB ×6 (03:27→23:20)
[2016-12-10 04:25] LABS: AUTOMATED NEUTROPHIL # 8.8 TH/MM3 (1.8-7.7); HEMATOCRIT 32.6 % (35.0-46.0); HEMO FLAGS DIFF FINAL; LYMPH % 10.5 % (9.0-44.0); LYMPHOCYTE # 1.1 TH/MM3 (1.0-4.8); MEAN CELL VOLUME 93.4 FL (80.0-100.0); MEAN CORPUSCULAR HEMOGLOBIN 30.2 PG (27.0-34.0); MEAN CORPUSCULAR HGB CONC 32.3 % (32.0-36.0); MONO % 5.8 % (0.0-8.0); NEUT % 83.7 % (16.0-70.0); PLATELET COUNT 209 TH/MM3 (150-450); RED BLOOD COUNT 3.49 MIL/MM3 (4.00-5.30); RED CELL DISTRIBUTION WIDTH 17.4 % (11.6-17.2); WHITE BLOOD COUNT 10.5 TH/MM3 (4.0-11.0)
[2016-12-10 04:33] LABS: BICARBONATE 34.3 MEQ/L (21.0-32.0); POTASSIUM 4.2 MEQ/L (3.5-5.1)
[2016-12-10] MEDS: INSULIN NovoLIN REGULAR SUPPLEMENTAL SCALE SQ SCH ×5 (05:27→23:28)
[2016-12-10] MEDS: LEVOTHYROXINE SODIUM 25 MCG TAB PO SCH (06:16)
[2016-12-10] MEDS: methylPREDNISolone SOD SUCC 40 MG/1 ML VIAL IV SCH ×3 (06:17→20:11)
[2016-12-10] MEDS: METOCLOPRAMIDE HCL 10 MG/2 ML VIAL IV PUSH SCH ×3 (06:17→20:12)
[2016-12-10] MEDS: RESP: BUDESONIDE 0.5 MG/2 ML NEB NEB SCH ×2 (07:19→20:29)
[2016-12-10] MEDS: CHLORHEXIDINE 0.12% (ORAL KIT) 15 ML CUP MT SCH ×2 (08:00→20:00)
--- NOTE | 2016-12-10 09:16 | HHI.PR ---
Subjective Remarks Pin Attacher notes: 76-year-old female presents with a history of shortness of breath that started at home. She has also altered mental status. Normally patient is awake with eyes open and answers questions right away. EMS reports pt received a muscle relaxer just prior to their arrival. She has received albuterol x 2 en route with however her CO2 Climbing on the BiPAP machine and she became more lethargic with less responsiveness. She was intubated in the emergency department. 12/03 Patient is sedated with Diprivan and intubated. Afebrile. On ACV with PEEP: 10, FIO2 45. 12/04: Afebrile. Arousable on propofol at 50 mcg/kg/m. PEEP is currently around 7. Tolerating tube feeds. Positive BM. 12/05: Afebrile. Currently all sedation currently off with only one working IV. PEEP 8. Tolerating tube feeding. Positive BM 3 yesterday. 12/06: Currently on PSV trial. Adequate urine output. Difficulty in obtaining peripheral blood draws. Positive BM. Tolerating tube feeding. Awake and alert and following commands. 12/07: On sedation vacation about initiates PSV trial. Lasted around 8 hours yesterday. Continue diuresis. Tolerating tube feeding. Positive BM. 12/08 Patient was extubated yesterday now on partial rebreather with good sats. Hypertensive. 12/09 No events overnight. Patient is on 50%VM. Afebrile. Hospitalist Notes: 12/10: Seen in Intensive Care Unit, improving on actual management. no nausea, vomit or diarrhea. Objective Vital Signs Date Time Temp Pulse Resp B/P Pulse Ox O2 Delivery O2 Flow Rate FiO2 12/10/16 08:44 94 Nasal Cannula 6.00 12/10/16 07:21 90 Nasal Cannula 6.00 12/10/16 06:00 67 12/10/16 04:08 92 Partial Rebreather 11.00 12/10/16 04:00 98.4 68 20 154/72 92 12/10/16 04:00 68 12/10/16 03:38 88 Venturi Mask 6.00 50 12/10/16 02:00 71 12/10/16 00:00 98.4 68 25 168/86 92 12/10/16 00:00 68 12/09/16 22:00 63 12/09/16 20:22 91 Nasal Cannula 6.00 12/09/16 20:00 98.1 82 23 173/76 91 12/09/16 20:00 82 12/09/16 19:00 91 Nasal Cannula 5.00 12/09/16 18:00 83 12/09/16 16:00 99.5 76 19 172/81 93 12/09/16 16:00 76 12/09/16 14:00 79 12/09/16 12:00 77 12/09/16 12:00 98.7 77 32 147/71 91 12/09/16 10:00 72 I/O 12/09/16 12/09/16 12/09/16 12/10/16 12/10/16 12/10/16 07:00 15:00 23:00 07:00 15:00 23:00 Intake Total 700 ml 510 ml 0 ml Output Total 550 ml 1200 ml 500 ml 750 ml Balance 150 ml -690 ml -500 ml -750 ml Intake Oral 510 ml IV Total 700 ml 0 ml Output Urine Total 550 ml 1200 ml 500 ml 750 ml # Bowel Movements 1 1 Result Diagram: 12/10/16 0400 12/10/16 0400 Imaging Last Impressions Chest X-Ray 12/08/16 0600 Signed Impressions: Service Date/Time: Thursday, December 08, 2016 04:21 - CONCLUSION: Mild bibasilar consolidation and small effusions not significantly changed. Patient has been extubated. Jasper Springer MD Renal Ultrasound 12/04/16 0000 Signed Impressions: Service Date/Time: November 17:52 - CONCLUSION: 1. Numerous cysts and chronic parenchymal disease of both kidneys. No evidence of obstructive uropathy or other acute abnormality. 2. Fuentes catheter present. Urinary bladder grossly unremarkable. 3. Cholelithiasis incidentally noted. Jasper Springer MD Lower Extremity Ultrasound 12/03/16 0000 Signed Impressions: Service Date/Time: Saturday, December 03, 2016 09:17 - CONCLUSION: Nonocclusive deep venous thrombus within the posterior tibial veins bilaterally. Galen Pierre MD Liver Ultrasound 12/02/16 0000 Signed Impressions: Service Date/Time: Friday, December 02, 2016 17:19 - CONCLUSION: 1. Common bile duct upper limits of normal caliber for a patient this age. No duct stone. 2. Several stones in the gallbladder measuring up to 14 mm in size. No evidence of acute cholecystitis Jasper Springer MD Chest CT 12/02/16 0000 Signed Impressions: Service Date/Time: Friday, December 02, 2016 10:46 - CONCLUSION: 1. Small bilateral pleural effusions with adjacent alveolar consolidations (right slightly worse than left) consistent with atelectasis and/or pneumonia. Clinical correlation is recommended. 2. Patchiness within the right upper lobe consistent with possible pneumonia. Clinical correlation is recommended. 3. Cardiomegaly, coronary artery calcifications and mitral annulus calcifications. 4. 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 5. Cholelithiasis. 6. Multiple simple and complex renal cysts bilaterally. 7. Degenerative changes and scoliosis of the thoracolumbar spine. 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 Anuradha Anthony MD Procedures Endotracheal intubation and extubation. Other Results Laboratory Tests Test 12/06/16 12/08/16 12/09/16 12/10/16 14:45 05:54 05:18 04:00 Protein Corrected Calcium 8.1 MG/DL Differential Total Cells 100 Counted Neutrophils % (Manual) 85 % Band Neutrophils % 2 % Lymphocytes % 6 % Monocytes % 6 % Neutrophils # (Manual) 12.1 TH/MM3 Metamyelocytes 1 % Nucleated Red Blood Cells 1 /100 WBC Platelet Estimate NORMAL Platelet Morphology Comment NORMAL Red Cell Morphology Comment NORMAL Total Bilirubin 0.3 MG/DL Aspartate Amino Transf 20 U/L (AST/SGOT) Alanine Aminotransferase 32 U/L (ALT/SGPT) Alkaline Phosphatase 26 U/L Total Protein 5.4 GM/DL Albumin 2.4 GM/DL Phosphorus Level 2.9 MG/DL Magnesium Level 2.7 MG/DL White Blood Count 10.5 TH/MM3 Red Blood Count 3.49 MIL/MM3 Hemoglobin 10.5 GM/DL Hematocrit 32.6 % Mean Corpuscular Volume 93.4 FL Mean Corpuscular Hemoglobin 30.2 PG Mean Corpuscular Hemoglobin 32.3 % Concent Red Cell Distribution Width 17.4 % Platelet Count 209 TH/MM3 Mean Platelet Volume 9.0 FL Neutrophils (%) (Auto) 83.7 % Lymphocytes (%) (Auto) 10.5 % Monocytes (%) (Auto) 5.8 % Eosinophils (%) (Auto) 0.0 % Basophils (%) (Auto) 0.0 % Neutrophils # (Auto) 8.8 TH/MM3 Lymphocytes # (Auto) 1.1 TH/MM3 Monocytes # (Auto) 0.6 TH/MM3 Eosinophils # (Auto) 0.0 TH/MM3 Basophils # (Auto) 0.0 TH/MM3 CBC Comment DIFF FINAL Differential Comment Sodium Level 141 MEQ/L Potassium Level 4.2 MEQ/L Chloride Level 103 MEQ/L Carbon Dioxide Level 34.3 MEQ/L Anion Gap 4 MEQ/L Blood Urea Nitrogen 34 MG/DL Creatinine 0.61 MG/DL Estimat Glomerular Filtration 95 ML/MIN Rate Random Glucose 115 MG/DL Calcium Level 8.9 MG/DL Objective Remarks GENERAL: no acute distress. SKIN: Warm and dry. HEAD: Normocephalic. EYES: No scleral icterus. No injection or drainage. NECK: Supple, trachea midline. No JVD or lymphadenopathy. CARDIOVASCULAR: Regular rate and rhythm without murmurs, gallops, or rubs. RESPIRATORY: Breath sounds equal bilaterally. No accessory muscle use. GASTROINTESTINAL: Abdomen soft, non-tender, nondistended. MUSCULOSKELETAL: No cyanosis, or edema. BACK: Nontender without obvious deformity. No CVA tenderness. Medications and IVs Current Medications Medications (Trade) Dose Ordered Sig/Lili Route Start Time Stop Time Status Last Admin (NS Flush) 2 ml UNSCH PRN .XX 12/02/16 01:00 (NS Flush) 2 ml BID .XX 12/02/16 09:00 12/09/16 20:57 (Tylenol) 650 mg Q6H PRN PO 12/02/16 01:00 12/09/16 17:19 (Zofran Inj) 4 mg Q6H PRN IV 12/02/16 01:00 12/05/16 21:04 (Reglan Inj) 10 mg Q6H PRN IV 12/02/16 01:00 (Compazine Supp) 25 mg Q12H PRN RECTAL 12/02/16 01:00 Miscellaneous Information 1 Q361D XX 12/02/16 01:00 12/02/16 04:45 (Chlorhexidine 2% Cloth) Taper DAILY@04 TOP 12/02/16 04:00 11/28/17 03:59 12/06/16 03:39 (Chlorhexidine 2% Cloth) 3 pack UNSCH PRN TOP 12/02/16 01:00 (Lynn-Colace) 1 tab BID PO 12/02/16 09:00 12/09/16 20:56 (Milk Of Magnesia Liq) 30 ml Q12H PRN PO 12/02/16 01:00 (Senokot) 17.2 mg Q12H PRN PO 12/02/16 01:00 (Dulcolax Supp) 10 mg DAILY PRN RECTAL 12/02/16 01:00 (Lactulose Liq) 30 ml DAILY PRN PO 12/02/16 01:00 (Xanax) 0.25 mg Q8H PRN PO 12/02/16 01:00 12/09/16 22:35 (Norvasc) 5 mg DAILY PO 12/02/16 09:00 12/09/16 07:55 (Flexeril) 5 mg TID PO 12/02/16 09:00 12/09/16 18:00 (Breo Ellipta 100-25 Inh) 1 puff HS INH 12/02/16 21:00 Hold (Neurontin) 600 mg TID PO 12/02/16 09:00 12/09/16 18:00 (Milk Of Magnesia Liq) 30 ml DAILY PRN PO 12/02/16 01:00 (Miralax) 17 gm HS PO 12/02/16 21:00 12/09/16 20:56 Lactobacillus Acidophilus 1 tab 1 tab BID PO 12/02/16 09:00 12/09/16 20:56 Potassium Chloride 100 ml @ 50 mls/hr Q2H PRN IV 12/02/16 10:30 (KCl 20 Meq Premix Inj) 100 ml @ 50 mls/hr Q2H PRN IV 12/02/16 10:30 Potassium Bicarb/ Potassium Chloride 50 meq 50 meq UNSCH PRN PO 12/02/16 10:30 Potassium Chloride 100 ml @ 25 mls/hr UNSCH PRN IV 12/02/16 10:30 Potassium Chloride 100 ml @ 50 mls/hr Q2H PRN IV 12/02/16 10:30 (Magnesium Sulfate Inj/NS Inj) 100 ml @ 50 mls/hr UNSCH PRN IV 12/02/16 10:30 Magnesium Oxide 800 mg 800 mg UNSCH PRN PO 12/02/16 10:30 (Magnesium Sulfate Inj/NS Inj) 100 ml @ 50 mls/hr UNSCH PRN IV 12/02/16 10:30 Potassium Phosphate 2000 mg 2,000 mg Q4H PRN PO 12/02/16 10:30 (Sodium Phosphate Inj/NS 250 ml Inj) 250 ml @ 42 mls/hr UNSCH PRN IV 12/02/16 10:30 12/02/16 12:44 Potassium Phosphate 2000 mg 2,000 mg UNSCH PRN PO/TUBE 12/02/16 10:30 (Potassium Phosphate Inj/NS 250 ml Inj) 260 ml @ 42 mls/hr UNSCH PRN IV 12/02/16 10:30 (SoluMEDROL INJ) 40 mg Q8HR IV 12/02/16 22:00 12/10/16 06:17 (D50w (Vial) Inj) 50 ml UNSCH PRN IV 12/03/16 08:30 (Glucagon Inj) 1 mg UNSCH PRN OTHER 12/03/16 08:30 (NovoLIN R SUPPLEMENTAL SCALE) 1 Q6HR SQ 12/03/16 08:30 12/07/16 17:57 (Xarelto) 20 mg DAILY PO 12/03/16 13:00 12/09/16 07:55 (Peridex 0.12% Liq) 15 ml BID@08,20 MT 12/04/16 20:00 12/07/16 08:10 (Pepcid) 20 mg DAILY NG 12/04/16 09:00 12/09/16 07:54 (Ferrous Sulfate Liq) 300 mg BID PO 12/04/16 21:00 12/09/16 20:56 (Lasix Inj) 20 mg DAILY IV PUSH 12/04/16 12:00 12/09/16 07:54 (Synthroid) 25 mcg DAILY@0600 PO 12/06/16 06:00 12/10/16 06:16 (Reglan Inj) 5 mg Q8HR IV PUSH 12/06/16 14:00 12/10/16 06:17 (Apresoline Inj) 20 mg Q4H PRN IV PUSH 12/07/16 23:30 12/10/16 02:05 (Vasotec Inj) 2.5 mg Q6H PRN IV PUSH 12/07/16 23:30 (Percocet 5-325 Mg) 1 tab Q6H PRN PO 12/08/16 14:00 12/10/16 02:27 (Lopressor) 50 mg Q12HR PO 12/09/16 21:00 12/09/16 20:56 A/P Assessment and Plan 1. Fibromyalgia/History of right posterior frontal lobe CVA/chronic benzodiazepine use/chronic opiate use On Xanax 0.25 mg every [address] head on admission revealed old cephalization of the right posterior frontal lobe. Neurontin 600 mill grams by mouth 3 times a day/home medication 2. Acute Hypoxemic respiratory failure Extubated 12/07/16, history of COPD/CAP Continue Oxygen as needed to maintain Oxygen saturation over 92% Pulmicort 0.5/2 one inhalation twice a day, Bronchodilator, mucolytic, Solu -Medrol 40 mg every [address] chest revealed bilateral lower lobe pneumonia/right upper lobe pneumonia drug safety data management specialist is following- Dr. Cummings 3. 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 Echocardiogram 10/06 revealed EF 60%. Left atrial dilatation. No regional wall motion abnormality. Echocardiogram 12/06 revealed EF 65-70%. Trace TR. Normal pulmonary pressures. Noted CT chest revealed 4.5 fusiform dilatation of the aorta at the retrocardiac with cardiomegaly 4. Cholelithiasis/Hypoalbuminemia on Pepcid for GI prophylaxis, bowel regimen. 5. CAP on Aztreonam, Azithromycin, Flagyl since 12/02, cultures negative, afebrile, Strep pneumonia and Legionella antigen negative. 12/02 - sputum - negative 12/01 - blood cultures 2 - no growth 12/01 - urine - negative 6. Normocytic Anemia/chronic Xarelto 20 mg daily, Bilateral posterior tibial nonocclusive DVT, continue Iron sulfate Iron sulfate 325 mg 3 times a day. 7. Hypothyroidism continue Hormonal replacement GI prophylaxis- on Pepcid DVT Protonix- Xarelto 20mg daily (home med) Galileo Gomez MD Dec 10, 2016 09:16
[2016-12-10] MEDS: ALPRAZolam 0.25 MG TAB PO PRN ×2 (09:46→16:49)
[2016-12-10] MEDS: amLODIPine BESYLATE 5 MG TAB PO SCH (09:46)
[2016-12-10] MEDS: LACTOBACILLUS ACIDOPHILUS TAB PO SCH ×2 (09:46→20:11)
[2016-12-10] MEDS: FERROUS SULFATE 300 MG /5ML UDC PO SCH ×2 (09:46→20:11)
[2016-12-10] MEDS: FAMOTIDINE 20 MG TAB NG SCH (09:46)
[2016-12-10] MEDS: FUROSEMIDE 20 MG/2 ML VIAL IV PUSH SCH (09:46)
[2016-12-10] MEDS: CYCLOBENZAPRINE HCL 10 MG TAB PO SCH ×3 (09:46→16:49)
[2016-12-10] MEDS: METOPROLOL TARTRATE 25 MG TAB PO SCH ×2 (09:47→20:11)
[2016-12-10] MEDS: DOCUSATE SODIUM 50 MG/SENNA 8.6 MG TAB PO SCH ×2 (09:47→20:11)
[2016-12-10] MEDS: GABAPENTIN 300 MG CAP PO SCH ×3 (09:47→16:49)
[2016-12-10] MEDS: SODIUM CHLORIDE 0.9% FLUSH 10 ML FLUSH SCH ×2 (09:47→20:11)
[2016-12-10] MEDS: RIVAROXABAN 20 MG TAB PO SCH (09:50)
[2016-12-10] MEDS ORDERED: PILL SPLITTER OTHER PRN (10:30)
[2016-12-10] MEDS: ACETAMINOPHEN 325 MG TAB PO PRN (10:53)
--- NOTE | 2016-12-10 19:25 | HHI.PR ---
Subjective Remarks 76 YOWf with Severe COPD, known to me from office has multiple admissions in the hosp Extubated 12/07 Appetite poor On Soft diet Weaned to NC, feels better Apppeitie improving Family at BS Objective Vital Signs Vital Signs Date Time Temp Pulse Resp B/P Pulse Ox O2 Delivery O2 Flow Rate FiO2 12/10/16 19:01 75 29 123/81 91 12/10/16 19:00 74 47 91 12/10/16 18:01 74 25 143/70 88 12/10/16 18:00 72 37 87 12/10/16 17:00 72 20 160/79 96 12/10/16 16:01 66 20 164/81 83 12/10/16 16:00 98.5 67 30 81 12/10/16 15:01 55 20 135/69 93 12/10/16 15:00 Nasal Cannula 6.00 12/10/16 14:01 67 32 163/74 85 12/10/16 13:00 65 47 141/80 87 12/10/16 12:00 98.5 63 22 128/69 89 12/10/16 11:00 60 31 129/59 88 12/10/16 10:00 87 29 141/81 88 12/10/16 09:01 80 21 145/73 95 12/10/16 08:44 94 Nasal Cannula 6.00 12/10/16 08:00 98.9 93 33 168/78 82 12/10/16 07:21 90 Nasal Cannula 6.00 12/10/16 07:00 Nasal Cannula 6.00 12/10/16 06:00 67 12/10/16 04:08 92 Partial Rebreather 11.00 12/10/16 04:00 98.4 68 20 154/72 92 12/10/16 04:00 68 12/10/16 03:38 88 Venturi Mask 6.00 50 12/10/16 02:00 71 12/10/16 00:00 98.4 68 25 168/86 92 12/10/16 00:00 68 12/09/16 22:00 63 12/09/16 20:22 91 Nasal Cannula 6.00 12/09/16 20:00 98.1 82 23 173/76 91 12/09/16 20:00 82 I/O 12/09/16 12/09/16 12/09/16 12/10/1612/10/17 6/21/17 07:00 15:00 23:00 07:00 15:00 23:00 Intake Total 700 ml 510 ml 0 ml 400 ml Output Total 550 ml 1200 ml 500 ml 750 ml 1150 ml Balance 150 ml -690 ml -500 ml -750 ml -750 ml Intake Oral 510 ml 400 ml IV Total 700 ml 0 ml Output Urine Total 550 ml 1200 ml 500 ml 750 ml 1150 ml # Bowel Movements 1 1 2 Result Diagram: 12/10/1639912/10/16399 Objective Remarks GENERAL: MBMN Wf, on vent, sedated SKIN: Warm and dry. HEAD: Normocephalic. EYES: No scleral icterus. No injection or drainage. NECK: Supple, trachea midline. No JVD or lymphadenopathy. CARDIOVASCULAR: Regular rate and rhythm without murmurs, gallops, or rubs. RESPIRATORY: Breath sounds equal bilaterally. No accessory muscle use. GASTROINTESTINAL: Abdomen soft, non-tender, nondistended. MUSCULOSKELETAL: No cyanosis, or edema. BACK: Nontender without obvious deformity. No CVA tenderness. A/P Assessment and Plan VDRF, s/p extubation Severe COPD Pneumonia AF CHF Pleural effusion PLAN: Supplement 02, keep sat >90% Aerosol nebs Cont Abx Xarelto daily Diurease Stable on NC Arvind Cummings MD Dec 10, 2016 19:25
[2016-12-10] MEDS: POLYETHYLENE GLYCOL 17 GM PKG PO SCH (20:11)
[2016-12-10] MEDS ORDERED: FAMOTIDINE 20 MG TAB NG SCH (21:00)
[2016-12-11] VITALS (10 sets, daily range): BP systolic 116–166; BP diastolic 57–85; PULSE 56–76; RESP 18–55; TEMP 98–98.7; O2SAT 79–97
[2016-12-11] MEDS: ALPRAZolam 0.25 MG TAB PO PRN ×3 (01:44→19:38)
[2016-12-11] MEDS: ACETAMINOPHEN 325 MG TAB PO PRN (01:44)
[2016-12-11] MEDS: RESP: ALBUTEROL 2.5 MG/IPRATROPIUM 0.5 MG NEB (SCH) NEB ×6 (03:53→23:24)
[2016-12-11] MEDS: CHLORHEXIDINE GLUCONATE 2 % 1 PACK (2 CLOTHS) TOP SCH (04:00)
[2016-12-11] MEDS: LEVOTHYROXINE SODIUM 25 MCG TAB PO SCH (04:49)
[2016-12-11] MEDS: methylPREDNISolone SOD SUCC 40 MG/1 ML VIAL IV SCH ×3 (04:49→21:50)
[2016-12-11] MEDS: oxyCODONE/ACETAMINOPHEN 5 MG/325 MG TAB PO PRN ×4 (04:49→23:56)
[2016-12-11] MEDS: METOCLOPRAMIDE HCL 10 MG/2 ML VIAL IV PUSH SCH ×3 (04:50→21:50)
[2016-12-11] MEDS: INSULIN NovoLIN REGULAR SUPPLEMENTAL SCALE SQ SCH ×4 (05:23→23:59)
[2016-12-11] MEDS: RESP: BUDESONIDE 0.5 MG/2 ML NEB NEB SCH ×2 (07:56→19:47)
[2016-12-11] MEDS: CHLORHEXIDINE 0.12% (ORAL KIT) 15 ML CUP MT SCH ×2 (08:00→19:39)
[2016-12-11] MEDS: RIVAROXABAN 20 MG TAB PO SCH (09:00)
[2016-12-11] MEDS: FERROUS SULFATE 300 MG /5ML UDC PO SCH ×2 (11:15→19:38)
[2016-12-11] MEDS: LACTOBACILLUS ACIDOPHILUS TAB PO SCH ×2 (11:15→19:38)
[2016-12-11] MEDS: DOCUSATE SODIUM 50 MG/SENNA 8.6 MG TAB PO SCH ×2 (11:16→19:39)
[2016-12-11] MEDS: amLODIPine BESYLATE 5 MG TAB PO SCH (11:16)
[2016-12-11] MEDS: FUROSEMIDE 20 MG/2 ML VIAL IV PUSH SCH (11:16)
[2016-12-11] MEDS: FAMOTIDINE 20 MG TAB NG SCH (11:16)
[2016-12-11] MEDS: SODIUM CHLORIDE 0.9% FLUSH 10 ML FLUSH SCH ×2 (11:17→19:39)
--- NOTE | 2016-12-11 11:21 | HHI.PR ---
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 She has also altered mental status. Normally patient is awake with eyes open and answers questions right away. EMS reports pt received a muscle relaxer just prior to their arrival. She has received albuterol x 2 en route with however her CO2 Climbing on the BiPAP machine and she became more lethargic with less responsiveness. She was intubated in the emergency department. 12/03 Patient is sedated with Diprivan and intubated. Afebrile. On ACV with PEEP: 10, FIO2 45. 12/04: Afebrile. Arousable on propofol at 50 mcg/kg/m. PEEP is currently around 7. Tolerating tube feeds. Positive BM. 12/05: Afebrile. Currently all sedation currently off with only one working IV. PEEP 8. Tolerating tube feeding. Positive BM 3 yesterday. 12/06: Currently on PSV trial. Adequate urine output. Difficulty in obtaining peripheral blood draws. Positive BM. Tolerating tube feeding. Awake and alert and following commands. 12/07: On sedation vacation about initiates PSV trial. Lasted around 8 hours yesterday. Continue diuresis. Tolerating tube feeding. Positive BM. 12/08 Patient was extubated yesterday now on partial rebreather with good sats. Hypertensive. 12/09 No events overnight. Patient is on 50%VM. Afebrile. Hospitalist Notes: 12/10: Seen in Intensive Care Unit. Stable 12/11: Stable, no nausea, vomit or diarrhea awaiting final by finish specialist for discharge, can be transferred to Medical floor. Objective Vital Signs Date Time Temp Pulse Resp B/P Pulse Ox O2 Delivery O2 Flow Rate FiO2 12/11/16 07:56 91 Partial Rebreather 15.00 12/11/16 04:00 98.0 57 20 166/78 96 12/11/16 03:53 97 Partial Rebreather 12.00 12/11/16 00:00 98.1 56 21 144/76 91 12/10/16 23:20 93 Nasal Cannula 6.00 12/10/16 20:29 90 Nasal Cannula 6.00 12/10/16 20:00 98.2 70 35 118/63 89 12/10/16 19:01 75 29 123/81 91 12/10/16 19:00 Nasal Cannula 6.00 12/10/16 19:00 74 47 91 12/10/16 18:01 74 25 143/70 88 12/10/16 18:00 72 37 87 12/10/16 17:00 72 20 160/79 96 12/10/16 16:01 66 20 164/81 83 12/10/16 16:00 98.5 67 30 81 12/10/16 15:01 55 20 135/69 93 12/10/16 15:00 Nasal Cannula 6.00 12/10/16 14:01 67 32 163/74 85 12/10/16 13:00 65 47 141/80 87 12/10/16 12:00 98.5 63 22 128/69 89 I/O 12/10/16 12/10/16 12/10/16 12/11/16 12/11/16 12/11/16 07:00 15:00 23:00 07:00 15:00 23:00 Intake Total 400 ml 240 ml 50 ml Output Total 750 ml 1150 ml 350 ml 450 ml Balance -750 ml -750 ml -110 ml -400 ml Intake Oral 400 ml 240 ml 50 ml IV Total 0 ml 0 ml Output Urine Total 750 ml 1150 ml 350 ml 450 ml # Bowel Movements 1 2 1 0 Result Diagram: 12/10/16 0400 12/10/16 0400 Imaging Last Impressions Chest X-Ray 12/08/16 0600 Signed Impressions: Service Date/Time: Thursday, December 08, 2016 04:21 - CONCLUSION: Mild bibasilar consolidation and small effusions not significantly changed. Patient has been extubated. Jasper Springer MD Renal Ultrasound 12/04/16 0000 Signed Impressions: Service Date/Time: November 17:52 - CONCLUSION: 1. Numerous cysts and chronic parenchymal disease of both kidneys. No evidence of obstructive uropathy or other acute abnormality. 2. Fuentes catheter present. Urinary bladder grossly unremarkable. 3. Cholelithiasis incidentally noted. Jasper Springer MD Lower Extremity Ultrasound 12/03/16 0000 Signed Impressions: Service Date/Time: Saturday, December 03, 2016 09:17 - CONCLUSION: Nonocclusive deep venous thrombus within the posterior tibial veins bilaterally. Galen Pierre MD Liver Ultrasound 12/02/16 0000 Signed Impressions: Service Date/Time: Friday, December 02, 2016 17:19 - CONCLUSION: 1. Common bile duct upper limits of normal caliber for a patient this age. No duct stone. 2. Several stones in the gallbladder measuring up to 14 mm in size. No evidence of acute cholecystitis Jasper Springer MD Chest CT 12/02/16 0000 Signed Impressions: Service Date/Time: Friday, December 02, 2016 10:46 - CONCLUSION: 1. Small bilateral pleural effusions with adjacent alveolar consolidations (right slightly worse than left) consistent with atelectasis and/or pneumonia. Clinical correlation is recommended. 2. Patchiness within the right upper lobe consistent with possible pneumonia. Clinical correlation is recommended. 3. Cardiomegaly, coronary artery calcifications and mitral annulus calcifications. 4. 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 5. Cholelithiasis. 6. Multiple simple and complex renal cysts bilaterally. 7. Degenerative changes and scoliosis of the thoracolumbar spine. 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 Anuradha Anthony MD Procedures Endotracheal intubation and extubation. Other Results Laboratory Tests Test 12/08/16 12/09/16 12/10/16 05:54 05:18 04:00 Differential Total Cells 100 Counted Neutrophils % (Manual) 85 % Band Neutrophils % 2 % Lymphocytes % 6 % Monocytes % 6 % Neutrophils # (Manual) 12.1 TH/MM3 Metamyelocytes 1 % Nucleated Red Blood Cells 1 /100 WBC Platelet Estimate NORMAL Platelet Morphology Comment NORMAL Red Cell Morphology Comment NORMAL Total Bilirubin 0.3 MG/DL Aspartate Amino Transf 20 U/L (AST/SGOT) Alanine Aminotransferase 32 U/L (ALT/SGPT) Alkaline Phosphatase 26 U/L Total Protein 5.4 GM/DL Albumin 2.4 GM/DL Phosphorus Level 2.9 MG/DL Magnesium Level 2.7 MG/DL White Blood Count 10.5 TH/MM3 Red Blood Count 3.49 MIL/MM3 Hemoglobin 10.5 GM/DL Hematocrit 32.6 % Mean Corpuscular Volume 93.4 FL Mean Corpuscular Hemoglobin 30.2 PG Mean Corpuscular Hemoglobin 32.3 % Concent Red Cell Distribution Width 17.4 % Platelet Count 209 TH/MM3 Mean Platelet Volume 9.0 FL Neutrophils (%) (Auto) 83.7 % Lymphocytes (%) (Auto) 10.5 % Monocytes (%) (Auto) 5.8 % Eosinophils (%) (Auto) 0.0 % Basophils (%) (Auto) 0.0 % Neutrophils # (Auto) 8.8 TH/MM3 Lymphocytes # (Auto) 1.1 TH/MM3 Monocytes # (Auto) 0.6 TH/MM3 Eosinophils # (Auto) 0.0 TH/MM3 Basophils # (Auto) 0.0 TH/MM3 CBC Comment DIFF FINAL Differential Comment Sodium Level 141 MEQ/L Potassium Level 4.2 MEQ/L Chloride Level 103 MEQ/L Carbon Dioxide Level 34.3 MEQ/L Anion Gap 4 MEQ/L Blood Urea Nitrogen 34 MG/DL Creatinine 0.61 MG/DL Estimat Glomerular Filtration 95 ML/MIN Rate Random Glucose 115 MG/DL Calcium Level 8.9 MG/DL Objective Remarks GENERAL: no acute distress. SKIN: Warm and dry. HEAD: Normocephalic. EYES: No scleral icterus. No injection or drainage. NECK: Supple, trachea midline. No JVD or lymphadenopathy. CARDIOVASCULAR: Regular rate and rhythm without murmurs, gallops, or rubs. RESPIRATORY: Breath sounds equal bilaterally. No accessory muscle use. GASTROINTESTINAL: Abdomen soft, non-tender, nondistended. MUSCULOSKELETAL: No cyanosis, or edema. BACK: Nontender without obvious deformity. No CVA tenderness. Medications and IVs Current Medications Medications (Trade) Dose Ordered Sig/Lili Route Start Time Stop Time Status Last Admin (NS Flush) 2 ml UNSCH PRN .XX 12/02/16 01:00 (NS Flush) 2 ml BID .XX 12/02/16 09:00 12/11/16 11:17 (Tylenol) 650 mg Q6H PRN PO 12/02/16 01:00 12/11/16 01:44 (Zofran Inj) 4 mg Q6H PRN IV 12/02/16 01:00 12/05/16 21:04 (Reglan Inj) 10 mg Q6H PRN IV 12/02/16 01:00 (Compazine Supp) 25 mg Q12H PRN RECTAL 12/02/16 01:00 Miscellaneous Information 1 Q361D XX 12/02/16 01:00 12/02/16 04:45 (Chlorhexidine 2% Cloth) Taper DAILY@04 TOP 12/02/16 04:00 11/28/17 03:59 12/06/16 03:39 (Chlorhexidine 2% Cloth) 3 pack UNSCH PRN TOP 12/02/16 01:00 (Lynn-Colace) 1 tab BID PO 12/02/16 09:00 12/11/16 11:16 (Milk Of Magnesia Liq) 30 ml Q12H PRN PO 12/02/16 01:00 (Senokot) 17.2 mg Q12H PRN PO 12/02/16 01:00 (Dulcolax Supp) 10 mg DAILY PRN RECTAL 12/02/16 01:00 (Lactulose Liq) 30 ml DAILY PRN PO 12/02/16 01:00 (Xanax) 0.25 mg Q8H PRN PO 12/02/16 01:00 12/11/16 11:15 (Norvasc) 5 mg DAILY PO 12/02/16 09:00 12/11/16 11:16 (Flexeril) 5 mg TID PO 12/02/16 09:00 12/10/16 16:49 (Breo Ellipta 100-25 Inh) 1 puff HS INH 12/02/16 21:00 Hold (Neurontin) 600 mg TID PO 12/02/16 09:00 12/10/16 16:49 (Milk Of Magnesia Liq) 30 ml DAILY PRN PO 12/02/16 01:00 (Miralax) 17 gm HS PO 12/02/16 21:00 12/10/16 20:11 Lactobacillus Acidophilus 1 tab 1 tab BID PO 12/02/16 09:00 12/11/16 11:15 Potassium Chloride 100 ml @ 50 mls/hr Q2H PRN IV 12/02/16 10:30 (KCl 20 Meq Premix Inj) 100 ml @ 50 mls/hr Q2H PRN IV 12/02/16 10:30 Potassium Bicarb/ Potassium Chloride 50 meq 50 meq UNSCH PRN PO 12/02/16 10:30 Potassium Chloride 100 ml @ 25 mls/hr UNSCH PRN IV 12/02/16 10:30 Potassium Chloride 100 ml @ 50 mls/hr Q2H PRN IV 12/02/16 10:30 (Magnesium Sulfate Inj/NS Inj) 100 ml @ 50 mls/hr UNSCH PRN IV 12/02/16 10:30 Magnesium Oxide 800 mg 800 mg UNSCH PRN PO 12/02/16 10:30 (Magnesium Sulfate Inj/NS Inj) 100 ml @ 50 mls/hr UNSCH PRN IV 12/02/16 10:30 Potassium Phosphate 2000 mg 2,000 mg Q4H PRN PO 12/02/16 10:30 (Sodium Phosphate Inj/NS 250 ml Inj) 250 ml @ 42 mls/hr UNSCH PRN IV 12/02/16 10:30 12/02/16 12:44 Potassium Phosphate 2000 mg 2,000 mg UNSCH PRN PO/TUBE 12/02/16 10:30 (Potassium Phosphate Inj/NS 250 ml Inj) 260 ml @ 42 mls/hr UNSCH PRN IV 12/02/16 10:30 (SoluMEDROL INJ) 40 mg Q8HR IV 12/02/16 22:00 12/11/16 04:49 (D50w (Vial) Inj) 50 ml UNSCH PRN IV 12/03/16 08:30 (Glucagon Inj) 1 mg UNSCH PRN OTHER 12/03/16 08:30 (NovoLIN R SUPPLEMENTAL SCALE) 1 Q6HR SQ 12/03/16 08:30 12/10/16 12:00 (Xarelto) 20 mg DAILY PO 12/03/16 13:00 12/10/16 09:50 (Peridex 0.12% Liq) 15 ml BID@08,20 MT 12/04/16 20:00 12/07/16 08:10 (Pepcid) 20 mg DAILY NG 12/04/16 09:00 12/11/16 11:16 (Ferrous Sulfate Liq) 300 mg BID PO 12/04/16 21:00 12/11/16 11:15 (Lasix Inj) 20 mg DAILY IV PUSH 12/04/16 12:00 12/11/16 11:16 (Synthroid) 25 mcg DAILY@0600 PO 12/06/16 06:00 12/11/16 04:49 (Reglan Inj) 5 mg Q8HR IV PUSH 12/06/16 14:00 12/11/16 04:50 (Apresoline Inj) 20 mg Q4H PRN IV PUSH 12/07/16 23:30 12/10/16 02:05 (Vasotec Inj) 2.5 mg Q6H PRN IV PUSH 12/07/16 23:30 (Percocet 5-325 Mg) 1 tab Q6H PRN PO 12/08/16 14:00 12/11/16 04:49 (Lopressor) 50 mg Q12HR PO 12/09/16 21:00 12/10/16 20:11 (Pill Splitter) 1 ea UNSCH PRN OTHER 12/10/16 10:30 A/P Assessment and Plan 1. Fibromyalgia/History of right posterior frontal lobe CVA/chronic benzodiazepine use/chronic opiate use On Xanax 0.25 mg every [address] head on admission revealed old cephalization of the right posterior frontal lobe. Neurontin 600 mill grams by mouth 3 times a day/home medication 2. Acute Hypoxemic respiratory failure Extubated 12/07/16, history of COPD/CAP Continue Oxygen as needed to maintain Oxygen saturation over 92% Pulmicort 0.5/2 one inhalation twice a day, Bronchodilator, mucolytic, Solu -Medrol 40 mg every [address] chest revealed bilateral lower lobe pneumonia/right upper lobe pneumonia finish specialist is following- Dr. Cummings 3. 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 Echocardiogram 10/06 revealed EF 60%. Left atrial dilatation. No regional wall motion abnormality. Echocardiogram 12/06 revealed EF 65-70%. Trace TR. Normal pulmonary pressures. Noted CT chest revealed 4.5 fusiform dilatation of the aorta at the retrocardiac with cardiomegaly 4. Cholelithiasis/Hypoalbuminemia on Pepcid for GI prophylaxis, bowel regimen. 5. CAP on Aztreonam, Azithromycin, Flagyl since 12/02, cultures negative, afebrile, Strep pneumonia and Legionella antigen negative. 12/02 - sputum - negative 12/01 - blood cultures 2 - no growth 12/01 - urine - negative 6. Normocytic Anemia/chronic Xarelto 20 mg daily, Bilateral posterior tibial nonocclusive DVT, continue Iron sulfate Iron sulfate 325 mg 3 times a day. 7. Hypothyroidism continue Hormonal replacement GI prophylaxis- on Pepcid DVT Protonix- Xarelto 20mg daily (home med) No changes to anterior assessment. Discharge Planning Awaiting for finish specialist for discharge. Galileo Gomez MD Dec 11, 2016 11:21
[2016-12-11] MEDS: GABAPENTIN 300 MG CAP PO SCH ×3 (12:14→18:02)
[2016-12-11] MEDS: METOPROLOL TARTRATE 25 MG TAB PO SCH ×2 (12:15→19:38)
[2016-12-11] MEDS: CYCLOBENZAPRINE HCL 10 MG TAB PO SCH ×3 (12:16→18:02)
--- NOTE | 2016-12-11 18:51 | HHI.PR ---
Subjective Remarks 76 YOWf with Severe COPD, known to me from office has multiple admissions in the hosp Extubated 12/07 Appetite poor On Soft diet Apppeitie improving Family at BS back on PRB Objective Vital Signs Vital Signs Date Time Temp Pulse Resp B/P Pulse Ox O2 Delivery O2 Flow Rate FiO2 12/11/16 16:00 98.4 62 30 116/57 79 12/11/16 12:00 98.7 64 23 162/85 96 12/11/16 08:00 98.5 59 18 164/76 91 12/11/16 08:00 Partial Non-Rebreather 15.00 12/11/16 07:56 91 Partial Rebreather 15.00 12/11/16 04:00 98.0 57 20 166/78 96 12/11/16 03:53 97 Partial Rebreather 12.00 12/11/16 00:00 98.1 56 21 144/76 91 12/10/16 23:20 93 Nasal Cannula 6.00 12/10/16 20:29 90 Nasal Cannula 6.00 12/10/16 20:00 98.2 70 35 118/63 89 12/10/16 19:01 75 29 123/81 91 12/10/16 19:00 Nasal Cannula 6.00 12/10/16 19:00 74 47 91 I/O 12/10/16 12/10/16 12/10/16 12/11/16 12/11/16 12/11/16 07:00 15:00 23:00 07:00 15:00 23:00 Intake Total 400 ml 240 ml 50 ml 360 ml Output Total 750 ml 1150 ml 350 ml 450 ml 1400 ml 700 ml Balance -750 ml -750 ml -110 ml -400 ml -1400 ml -340 ml Intake Oral 400 ml 240 ml 50 ml 360 ml IV Total 0 ml 0 ml Output Urine Total 750 ml 1150 ml 350 ml 450 ml 1400 ml 700 ml # Bowel Movements 1 2 1 0 0 0 Result Diagram: 12/10/1639912/10/16399 Objective Remarks GENERAL: MBMN Wf, on vent, sedated SKIN: Warm and dry. HEAD: Normocephalic. EYES: No scleral icterus. No injection or drainage. NECK: Supple, trachea midline. No JVD or lymphadenopathy. CARDIOVASCULAR: Regular rate and rhythm without murmurs, gallops, or rubs. RESPIRATORY: Breath sounds equal bilaterally. No accessory muscle use. GASTROINTESTINAL: Abdomen soft, non-tender, nondistended. MUSCULOSKELETAL: No cyanosis, or edema. BACK: Nontender without obvious deformity. No CVA tenderness. A/P Assessment and Plan VDRF, s/p extubation Severe COPD Pneumonia AF CHF Pleural effusion PLAN: Supplement 02, keep sat >90% Aerosol nebs Cont Abx Xarelto daily Diurease Will need trilogy for home use Arvind Cummings MD Dec 11, 2016 18:51
[2016-12-11] MEDS: POLYETHYLENE GLYCOL 17 GM PKG PO SCH (19:39)
[2016-12-12] VITALS (25 sets, daily range): BP systolic 125–172; BP diastolic 68–117; PULSE 55–160; RESP 22–41; TEMP 98–98.7; O2SAT 85–99
[2016-12-12] MEDS: CHLORHEXIDINE GLUCONATE 2 % 1 PACK (2 CLOTHS) TOP SCH ×2 (03:15→23:32)
[2016-12-12] MEDS: RESP: ALBUTEROL 2.5 MG/IPRATROPIUM 0.5 MG NEB (SCH) NEB ×6 (04:00→23:46)
[2016-12-12] MEDS: methylPREDNISolone SOD SUCC 40 MG/1 ML VIAL IV SCH ×3 (05:23→21:42)
[2016-12-12] MEDS: LEVOTHYROXINE SODIUM 25 MCG TAB PO SCH (05:24)
[2016-12-12] MEDS: INSULIN NovoLIN REGULAR SUPPLEMENTAL SCALE SQ SCH ×3 (05:24→17:37)
[2016-12-12] MEDS: METOCLOPRAMIDE HCL 10 MG/2 ML VIAL IV PUSH SCH ×3 (05:24→21:42)
[2016-12-12] MEDS: CHLORHEXIDINE 0.12% (ORAL KIT) 15 ML CUP MT SCH ×2 (07:57→20:00)
[2016-12-12] MEDS: RESP: BUDESONIDE 0.5 MG/2 ML NEB NEB SCH ×2 (08:00→20:39)
[2016-12-12] MEDS: RIVAROXABAN 20 MG TAB PO SCH (08:07)
[2016-12-12] MEDS: GABAPENTIN 300 MG CAP PO SCH ×3 (08:07→17:33)
[2016-12-12] MEDS: FERROUS SULFATE 300 MG /5ML UDC PO SCH ×3 (08:07→21:40)
[2016-12-12] MEDS: DOCUSATE SODIUM 50 MG/SENNA 8.6 MG TAB PO SCH ×2 (08:08→21:00)
[2016-12-12] MEDS: amLODIPine BESYLATE 5 MG TAB PO SCH (08:08)
[2016-12-12] MEDS: METOPROLOL TARTRATE 25 MG TAB PO SCH ×2 (08:08→21:41)
[2016-12-12] MEDS: FAMOTIDINE 20 MG TAB NG SCH (08:08)
[2016-12-12] MEDS: LACTOBACILLUS ACIDOPHILUS TAB PO SCH ×2 (08:08→21:41)
[2016-12-12] MEDS: CYCLOBENZAPRINE HCL 10 MG TAB PO SCH ×3 (08:08→17:33)
[2016-12-12] MEDS: FUROSEMIDE 20 MG/2 ML VIAL IV PUSH SCH (08:09)
[2016-12-12] MEDS: SODIUM CHLORIDE 0.9% FLUSH 10 ML FLUSH SCH ×2 (08:09→21:41)
[2016-12-12] MEDS: oxyCODONE/ACETAMINOPHEN 5 MG/325 MG TAB PO PRN ×2 (08:51→18:38)
--- NOTE | 2016-12-12 11:46 | HHI.PR ---
Subjective Remarks 76 YOWf with Severe COPD, known to me from office has multiple admissions in the hosp Extubated 12/07 Appetite poor On Soft diet Apppeitie improving Family at BS Up in chair weaned to 6LNC Objective Vital Signs Vital Signs Date Time Temp Pulse Resp B/P Pulse Ox O2 Delivery O2 Flow Rate FiO2 12/12/16 11:02 95 Nasal Cannula 6.00 12/12/16 08:15 93 Partial Rebreather 12.00 12/12/16 08:00 95 Nasal Cannula 6.00 12/12/16 08:00 98.5 72 22 150/85 95 12/12/16 08:00 72 12/12/16 07:00 74 12/12/16 04:00 98.0 75 41 162/77 94 12/12/16 00:00 98.2 80 27 144/83 94 12/11/16 21:05 96 Partial Rebreather 12.00 12/11/16 20:00 98.5 76 55 160/62 89 12/11/16 19:50 94 Partial Rebreather 12.00 12/11/16 19:00 Nasal Cannula 6.00 12/11/16 16:00 98.4 62 30 116/57 79 12/11/16 12:00 98.7 64 23 162/85 96 I/O 12/11/16 12/11/16 12/11/16 12/12/16 12/12/16 12/12/16 07:00 15:00 23:00 07:00 15:00 23:00 Intake Total 50 ml 840 ml 240 ml Output Total 450 ml 1400 ml 1100 ml 600 ml Balance -400 ml -1400 ml -260 ml -360 ml Intake Oral 50 ml 840 ml 240 ml IV Total 0 ml 0 ml 0 ml Output Urine Total 450 ml 1400 ml 1100 ml 600 ml # Bowel Movements 0 0 0 0 Result Diagram: 12/10/1639912/10/16399 Objective Remarks GENERAL: MBMN Wf, on vent, sedated SKIN: Warm and dry. HEAD: Normocephalic. EYES: No scleral icterus. No injection or drainage. NECK: Supple, trachea midline. No JVD or lymphadenopathy. CARDIOVASCULAR: Regular rate and rhythm without murmurs, gallops, or rubs. RESPIRATORY: Breath sounds equal bilaterally. No accessory muscle use. GASTROINTESTINAL: Abdomen soft, non-tender, nondistended. MUSCULOSKELETAL: No cyanosis, or edema. BACK: Nontender without obvious deformity. No CVA tenderness. A/P Assessment and Plan VDRF, s/p extubation Severe COPD Pneumonia AF CHF Pleural effusion PLAN: Aerosol nebs Cont Abx Xarelto daily Diurease Will need trilogy for home use 02 6LNC, keep sat >90% CPAP prn Arvind Cummings MD Dec 12, 2016 11:46
--- NOTE | 2016-12-12 17:36 | HHI.PR ---
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 She has also altered mental status. Normally patient is awake with eyes open and answers questions right away. EMS reports pt received a muscle relaxer just prior to their arrival. She has received albuterol x 2 en route with however her CO2 Climbing on the BiPAP machine and she became more lethargic with less responsiveness. She was intubated in the emergency department. 12/03 Patient is sedated with Diprivan and intubated. Afebrile. On ACV with PEEP: 10, FIO2 45. 12/04: Afebrile. Arousable on propofol at 50 mcg/kg/m. PEEP is currently around 7. Tolerating tube feeds. Positive BM. 12/05: Afebrile. Currently all sedation currently off with only one working IV. PEEP 8. Tolerating tube feeding. Positive BM 3 yesterday. 12/06: Currently on PSV trial. Adequate urine output. Difficulty in obtaining peripheral blood draws. Positive BM. Tolerating tube feeding. Awake and alert and following commands. 12/07: On sedation vacation about initiates PSV trial. Lasted around 8 hours yesterday. Continue diuresis. Tolerating tube feeding. Positive BM. 12/08 Patient was extubated yesterday now on partial rebreather with good sats. Hypertensive. 12/09 No events overnight. Patient is on 50%VM. Afebrile. Hospitalist Notes: 12/12: Seen in his bedroom, in the presence of her Daughter Mrs. Cespedes no new issues, no nausea, vomit or diarrhea. Objective Vital Signs Date Time Temp Pulse Resp B/P Pulse Ox O2 Delivery O2 Flow Rate FiO2 12/12/16 15:01 68 33 125/84 85 12/12/16 15:00 69 25 85 12/12/16 14:00 64 34 139/69 91 12/12/16 13:01 64 31 146/69 88 12/12/16 13:00 63 27 88 12/12/16 12:20 98.1 61 25 172/80 89 12/12/16 11:02 95 Nasal Cannula 6.00 12/12/16 11:00 56 33 140/68 93 12/12/16 10:00 55 26 133/68 93 12/12/16 09:24 58 34 136/79 89 12/12/16 09:00 63 26 157/117 89 12/12/16 08:15 93 Partial Rebreather 12.00 12/12/16 08:00 95 Nasal Cannula 6.00 12/12/16 08:00 98.5 72 22 150/85 95 12/12/16 08:00 72 12/12/16 07:00 74 12/12/16 04:00 98.0 75 41 162/77 94 12/12/16 00:00 98.2 80 27 144/83 94 12/11/16 21:05 96 Partial Rebreather 12.00 12/11/16 20:00 98.5 76 55 160/62 89 12/11/16 19:50 94 Partial Rebreather 12.00 12/11/16 19:00 Nasal Cannula 6.00 I/O 12/11/16 12/11/16 12/11/16 12/12/16 12/12/16 12/12/16 07:00 15:00 23:00 07:00 15:00 23:00 Intake Total 50 ml 840 ml 240 ml Output Total 450 ml 1400 ml 1100 ml 600 ml Balance -400 ml -1400 ml -260 ml -360 ml Intake Oral 50 ml 840 ml 240 ml IV Total 0 ml 0 ml 0 ml Output Urine Total 450 ml 1400 ml 1100 ml 600 ml # Bowel Movements 0 0 0 0 Result Diagram: 12/10/16 0400 12/10/16 0400 Imaging Last Impressions Chest X-Ray 12/08/16 0600 Signed Impressions: Service Date/Time: Thursday, December 08, 2016 04:21 - CONCLUSION: Mild bibasilar consolidation and small effusions not significantly changed. Patient has been extubated. Jasper Springer MD Renal Ultrasound 12/04/16 0000 Signed Impressions: Service Date/Time: November 17:52 - CONCLUSION: 1. Numerous cysts and chronic parenchymal disease of both kidneys. No evidence of obstructive uropathy or other acute abnormality. 2. Fuentes catheter present. Urinary bladder grossly unremarkable. 3. Cholelithiasis incidentally noted. Jasper Springer MD Lower Extremity Ultrasound 12/03/16 0000 Signed Impressions: Service Date/Time: Saturday, December 03, 2016 09:17 - CONCLUSION: Nonocclusive deep venous thrombus within the posterior tibial veins bilaterally. Galen Pierre MD Liver Ultrasound 12/02/16 0000 Signed Impressions: Service Date/Time: Friday, December 02, 2016 17:19 - CONCLUSION: 1. Common bile duct upper limits of normal caliber for a patient this age. No duct stone. 2. Several stones in the gallbladder measuring up to 14 mm in size. No evidence of acute cholecystitis Jasper Springer MD Chest CT 12/02/16 0000 Signed Impressions: Service Date/Time: Friday, December 02, 2016 10:46 - CONCLUSION: 1. Small bilateral pleural effusions with adjacent alveolar consolidations (right slightly worse than left) consistent with atelectasis and/or pneumonia. Clinical correlation is recommended. 2. Patchiness within the right upper lobe consistent with possible pneumonia. Clinical correlation is recommended. 3. Cardiomegaly, coronary artery calcifications and mitral annulus calcifications. 4. 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 5. Cholelithiasis. 6. Multiple simple and complex renal cysts bilaterally. 7. Degenerative changes and scoliosis of the thoracolumbar spine. 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 Anuradha Anthony MD Procedures Endotracheal intubation and extubation. Other Results Laboratory Tests Test 12/08/16 12/09/16 12/10/16 05:54 05:18 04:00 Differential Total Cells 100 Counted Neutrophils % (Manual) 85 % Band Neutrophils % 2 % Lymphocytes % 6 % Monocytes % 6 % Neutrophils # (Manual) 12.1 TH/MM3 Metamyelocytes 1 % Nucleated Red Blood Cells 1 /100 WBC Platelet Estimate NORMAL Platelet Morphology Comment NORMAL Red Cell Morphology Comment NORMAL Total Bilirubin 0.3 MG/DL Aspartate Amino Transf 20 U/L (AST/SGOT) Alanine Aminotransferase 32 U/L (ALT/SGPT) Alkaline Phosphatase 26 U/L Total Protein 5.4 GM/DL Albumin 2.4 GM/DL Phosphorus Level 2.9 MG/DL Magnesium Level 2.7 MG/DL White Blood Count 10.5 TH/MM3 Red Blood Count 3.49 MIL/MM3 Hemoglobin 10.5 GM/DL Hematocrit 32.6 % Mean Corpuscular Volume 93.4 FL Mean Corpuscular Hemoglobin 30.2 PG Mean Corpuscular Hemoglobin 32.3 % Concent Red Cell Distribution Width 17.4 % Platelet Count 209 TH/MM3 Mean Platelet Volume 9.0 FL Neutrophils (%) (Auto) 83.7 % Lymphocytes (%) (Auto) 10.5 % Monocytes (%) (Auto) 5.8 % Eosinophils (%) (Auto) 0.0 % Basophils (%) (Auto) 0.0 % Neutrophils # (Auto) 8.8 TH/MM3 Lymphocytes # (Auto) 1.1 TH/MM3 Monocytes # (Auto) 0.6 TH/MM3 Eosinophils # (Auto) 0.0 TH/MM3 Basophils # (Auto) 0.0 TH/MM3 CBC Comment DIFF FINAL Differential Comment Sodium Level 141 MEQ/L Potassium Level 4.2 MEQ/L Chloride Level 103 MEQ/L Carbon Dioxide Level 34.3 MEQ/L Anion Gap 4 MEQ/L Blood Urea Nitrogen 34 MG/DL Creatinine 0.61 MG/DL Estimat Glomerular Filtration 95 ML/MIN Rate Random Glucose 115 MG/DL Calcium Level 8.9 MG/DL Objective Remarks GENERAL: no acute distress. SKIN: Warm and dry. HEAD: Normocephalic. EYES: No scleral icterus. No injection or drainage. NECK: Supple, trachea midline. No JVD or lymphadenopathy. CARDIOVASCULAR: Regular rate and rhythm without murmurs, gallops, or rubs. RESPIRATORY: Severe Decreased breath sounds, no wheezing or crackles. GASTROINTESTINAL: Abdomen soft, non-tender, nondistended. MUSCULOSKELETAL: No cyanosis, or edema. BACK: Nontender without obvious deformity. No CVA tenderness. Medications and IVs Current Medications Medications (Trade) Dose Ordered Sig/Lili Route Start Time Stop Time Status Last Admin (NS Flush) 2 ml UNSCH PRN .XX 12/02/16 01:00 (NS Flush) 2 ml BID .XX 12/02/16 09:00 12/12/16 08:09 (Tylenol) 650 mg Q6H PRN PO 12/02/16 01:00 12/11/16 01:44 (Zofran Inj) 4 mg Q6H PRN IV 12/02/16 01:00 12/05/16 21:04 (Reglan Inj) 10 mg Q6H PRN IV 12/02/16 01:00 (Compazine Supp) 25 mg Q12H PRN RECTAL 12/02/16 01:00 Miscellaneous Information 1 Q361D XX 12/02/16 01:00 12/02/16 04:45 (Chlorhexidine 2% Cloth) Taper DAILY@04 TOP 12/02/16 04:00 11/28/17 03:59 12/06/16 03:39 (Chlorhexidine 2% Cloth) 3 pack UNSCH PRN TOP 12/02/16 01:00 (Lynn-Colace) 1 tab BID PO 12/02/16 09:00 12/11/16 11:16 (Milk Of Magnesia Liq) 30 ml Q12H PRN PO 12/02/16 01:00 (Senokot) 17.2 mg Q12H PRN PO 12/02/16 01:00 (Dulcolax Supp) 10 mg DAILY PRN RECTAL 12/02/16 01:00 (Lactulose Liq) 30 ml DAILY PRN PO 12/02/16 01:00 (Xanax) 0.25 mg Q8H PRN PO 12/02/16 01:00 12/11/16 19:38 (Norvasc) 5 mg DAILY PO 12/02/16 09:00 12/12/16 08:08 (Flexeril) 5 mg TID PO 12/02/16 09:00 12/12/16 11:59 (Breo Ellipta 100-25 Inh) 1 puff HS INH 12/02/16 21:00 Hold (Neurontin) 600 mg TID PO 12/02/16 09:00 12/12/16 11:59 (Milk Of Magnesia Liq) 30 ml DAILY PRN PO 12/02/16 01:00 (Miralax) 17 gm HS PO 12/02/16 21:00 12/10/16 20:11 Lactobacillus Acidophilus 1 tab 1 tab BID PO 12/02/16 09:00 12/12/16 08:08 Potassium Chloride 100 ml @ 50 mls/hr Q2H PRN IV 12/02/16 10:30 (KCl 20 Meq Premix Inj) 100 ml @ 50 mls/hr Q2H PRN IV 12/02/16 10:30 Potassium Bicarb/ Potassium Chloride 50 meq 50 meq UNSCH PRN PO 12/02/16 10:30 Potassium Chloride 100 ml @ 25 mls/hr UNSCH PRN IV 12/02/16 10:30 Potassium Chloride 100 ml @ 50 mls/hr Q2H PRN IV 12/02/16 10:30 (Magnesium Sulfate Inj/NS Inj) 100 ml @ 50 mls/hr UNSCH PRN IV 12/02/16 10:30 Magnesium Oxide 800 mg 800 mg UNSCH PRN PO 12/02/16 10:30 (Magnesium Sulfate Inj/NS Inj) 100 ml @ 50 mls/hr UNSCH PRN IV 12/02/16 10:30 Potassium Phosphate 2000 mg 2,000 mg Q4H PRN PO 12/02/16 10:30 (Sodium Phosphate Inj/NS 250 ml Inj) 250 ml @ 42 mls/hr UNSCH PRN IV 12/02/16 10:30 12/02/16 12:44 Potassium Phosphate 2000 mg 2,000 mg UNSCH PRN PO/TUBE 12/02/16 10:30 (Potassium Phosphate Inj/NS 250 ml Inj) 260 ml @ 42 mls/hr UNSCH PRN IV 12/02/16 10:30 (SoluMEDROL INJ) 40 mg Q8HR IV 12/02/16 22:00 12/12/16 14:48 (D50w (Vial) Inj) 50 ml UNSCH PRN IV 12/03/16 08:30 (Glucagon Inj) 1 mg UNSCH PRN OTHER 12/03/16 08:30 (NovoLIN R SUPPLEMENTAL SCALE) 1 Q6HR SQ 12/03/16 08:30 12/12/16 12:00 (Xarelto) 20 mg DAILY PO 12/03/16 13:00 12/12/16 08:07 (Peridex 0.12% Liq) 15 ml BID@08,20 MT 12/04/16 20:00 12/07/16 08:10 (Pepcid) 20 mg DAILY NG 12/04/16 09:00 12/12/16 08:08 (Ferrous Sulfate Liq) 300 mg BID PO 12/04/16 21:00 12/11/16 19:38 (Lasix Inj) 20 mg DAILY IV PUSH 12/04/16 12:00 12/12/16 08:09 (Synthroid) 25 mcg DAILY@0600 PO 12/06/16 06:00 12/12/16 05:24 (Reglan Inj) 5 mg Q8HR IV PUSH 12/06/16 14:00 12/12/16 14:48 (Apresoline Inj) 20 mg Q4H PRN IV PUSH 12/07/16 23:30 12/10/16 02:05 (Vasotec Inj) 2.5 mg Q6H PRN IV PUSH 12/07/16 23:30 (Percocet 5-325 Mg) 1 tab Q6H PRN PO 12/08/16 14:00 12/12/16 08:51 (Lopressor) 50 mg Q12HR PO 12/09/16 21:00 12/12/16 08:08 (Pill Splitter) 1 ea UNSCH PRN OTHER 12/10/16 10:30 A/P Assessment and Plan 1. Fibromyalgia/History of right posterior frontal lobe CVA/chronic benzodiazepine use/chronic opiate use On Xanax 0.25 mg every [address] head on admission revealed old cephalization of the right posterior frontal lobe. Neurontin 600 mill grams by mouth 3 times a day/home medication 2. Acute Hypoxemic respiratory failure Extubated 12/07/16, history of COPD/CAP Continue Oxygen as needed to maintain Oxygen saturation over 92% Pulmicort 0.5/2 one inhalation twice a day, Bronchodilator, mucolytic, Solu -Medrol 40 mg every [address] chest revealed bilateral lower lobe pneumonia/right upper lobe pneumonia technician inventory specialist is following- Dr. Cummings 3. 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 Echocardiogram 10/06 revealed EF 60%. Left atrial dilatation. No regional wall motion abnormality. Echocardiogram 12/06 revealed EF 65-70%. Trace TR. Normal pulmonary pressures. Noted CT chest revealed 4.5 fusiform dilatation of the aorta at the retrocardiac with cardiomegaly 4. Cholelithiasis/Hypoalbuminemia on Pepcid for GI prophylaxis, bowel regimen. 5. CAP on Aztreonam, Azithromycin, Flagyl since 12/02, cultures negative, afebrile, Strep pneumonia and Legionella antigen negative. 12/02 - sputum - negative 12/01 - blood cultures 2 - no growth 12/01 - urine - negative 6. Normocytic Anemia/chronic Xarelto 20 mg daily, Bilateral posterior tibial nonocclusive DVT, continue Iron sulfate Iron sulfate 325 mg 3 times a day. 7. Hypothyroidism continue Hormonal replacement GI prophylaxis- on Pepcid DVT Protonix- Xarelto 20mg daily (home med) No changes to anterior assessment. Discharge Planning Awaiting for technician inventory specialist for discharge. Galileo Gomez MD Dec 12, 2016 17:36
[2016-12-12] MEDS: POLYETHYLENE GLYCOL 17 GM PKG PO SCH (21:00)
[2016-12-13] VITALS (20 sets, daily range): BP systolic 121–167; BP diastolic 63–79; PULSE 53–83; RESP 13–39; TEMP 97.8–98.8; O2SAT 83–98
[2016-12-13] MEDS: RESP: ALBUTEROL 2.5 MG/IPRATROPIUM 0.5 MG NEB (SCH) NEB ×5 (03:58→20:58)
[2016-12-13] MEDS: ALPRAZolam 0.25 MG TAB PO PRN ×2 (05:29→19:42)
[2016-12-13] MEDS: LEVOTHYROXINE SODIUM 25 MCG TAB PO SCH (05:29)
[2016-12-13] MEDS: METOCLOPRAMIDE HCL 10 MG/2 ML VIAL IV PUSH SCH ×3 (05:29→21:48)
[2016-12-13] MEDS: methylPREDNISolone SOD SUCC 40 MG/1 ML VIAL IV SCH ×3 (05:29→21:47)
[2016-12-13] MEDS: oxyCODONE/ACETAMINOPHEN 5 MG/325 MG TAB PO PRN ×3 (05:29→22:21)
[2016-12-13] MEDS: INSULIN NovoLIN REGULAR SUPPLEMENTAL SCALE SQ SCH ×4 (05:45→17:47)
[2016-12-13] MEDS: CHLORHEXIDINE 0.12% (ORAL KIT) 15 ML CUP MT SCH ×2 (08:00→20:00)
[2016-12-13] MEDS: RESP: BUDESONIDE 0.5 MG/2 ML NEB NEB SCH ×2 (08:35→20:58)
[2016-12-13] MEDS: SODIUM CHLORIDE 0.9% FLUSH 10 ML FLUSH SCH ×2 (09:28→20:16)
[2016-12-13] MEDS: METOPROLOL TARTRATE 25 MG TAB PO SCH ×2 (09:29→20:16)
[2016-12-13] MEDS: FERROUS SULFATE 300 MG /5ML UDC PO SCH ×2 (09:29→20:16)
[2016-12-13] MEDS: FAMOTIDINE 20 MG TAB NG SCH (09:29)
[2016-12-13] MEDS: LACTOBACILLUS ACIDOPHILUS TAB PO SCH ×2 (09:29→20:16)
[2016-12-13] MEDS: GABAPENTIN 300 MG CAP PO SCH ×3 (09:29→17:47)
[2016-12-13] MEDS: FUROSEMIDE 20 MG/2 ML VIAL IV PUSH SCH (09:29)
[2016-12-13] MEDS: amLODIPine BESYLATE 5 MG TAB PO SCH (09:30)
[2016-12-13] MEDS: CYCLOBENZAPRINE HCL 10 MG TAB PO SCH ×3 (09:30→17:47)
[2016-12-13] MEDS: DOCUSATE SODIUM 50 MG/SENNA 8.6 MG TAB PO SCH ×2 (09:30→20:16)
[2016-12-13] MEDS: RIVAROXABAN 20 MG TAB PO SCH (09:30)
--- NOTE | 2016-12-13 17:16 | HHI.PR ---
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 She has also altered mental status. Normally patient is awake with eyes open and answers questions right away. EMS reports pt received a muscle relaxer just prior to their arrival. She has received albuterol x 2 en route with however her CO2 Climbing on the BiPAP machine and she became more lethargic with less responsiveness. She was intubated in the emergency department. 12/03 Patient is sedated with Diprivan and intubated. Afebrile. On ACV with PEEP: 10, FIO2 45. 12/04: Afebrile. Arousable on propofol at 50 mcg/kg/m. PEEP is currently around 7. Tolerating tube feeds. Positive BM. 12/05: Afebrile. Currently all sedation currently off with only one working IV. PEEP 8. Tolerating tube feeding. Positive BM 3 yesterday. 12/06: Currently on PSV trial. Adequate urine output. Difficulty in obtaining peripheral blood draws. Positive BM. Tolerating tube feeding. Awake and alert and following commands. 12/07: On sedation vacation about initiates PSV trial. Lasted around 8 hours yesterday. Continue diuresis. Tolerating tube feeding. Positive BM. 12/08 Patient was extubated yesterday now on partial rebreather with good sats. Hypertensive. 12/09 No events overnight. Patient is on 50%VM. Afebrile. Hospitalist Notes: 12/12: Seen in his bedroom, in the presence of her Daughter Mrs. Cespedes no new issues 12/13; No new issues, continue management by peer support specialist. no nausea, vomit or diarrhea. Objective Vital Signs Date Time Temp Pulse Resp B/P Pulse Ox O2 Delivery O2 Flow Rate FiO2 12/13/16 16:00 64 12/13/16 16:00 98.7 64 33 153/72 90 12/13/16 15:00 57 39 125/66 94 12/13/16 14:00 57 32 129/63 96 12/13/16 14:00 57 12/13/16 13:00 62 30 145/69 98 12/13/16 12:00 59 12/13/16 12:00 98.8 59 26 121/74 95 12/13/16 11:00 61 21 136/70 98 12/13/16 11:00 97 Partial Non-Rebreather 15.00 12/13/16 10:00 83 25 139/72 93 12/13/16 10:00 83 12/13/16 10:00 96 Nasal Cannula 7.00 12/13/16 09:00 71 31 148/72 90 12/13/16 08:37 96 Partial Rebreather 12.00 12/13/16 08:00 96 Nasal Cannula 10.00 85 12/13/16 08:00 98.3 66 28 147/76 96 12/13/16 08:00 65 12/13/16 07:00 98 Partial Non-Rebreather 12.00 12/13/16 07:00 62 16 133/72 98 12/13/16 06:00 66 12/13/16 04:00 98.0 66 29 167/79 90 12/13/16 04:00 66 12/13/16 02:00 60 12/13/16 00:00 97.8 53 25 145/78 93 12/13/16 00:00 53 12/12/16 22:00 78 12/12/16 20:40 99 Partial Rebreather 12.00 12/12/16 20:00 98.2 65 24 146/78 97 12/12/16 20:00 65 12/12/16 19:00 95 Partial Non-Rebreather 12.00 12/12/16 18:01 78 31 154/76 90 12/12/16 18:01 78 12/12/16 18:00 160 31 94 12/12/16 18:00 160 I/O 12/12/16 12/12/16 12/12/16 12/13/16 12/13/16 12/13/16 07:00 15:00 23:00 07:00 15:00 23:00 Intake Total 240 ml 540 ml 200 ml 100 ml 666 ml Output Total 600 ml 900 ml 450 ml 350 ml 750 ml Balance -360 ml -360 ml -250 ml -250 ml -84 ml Intake Oral 240 ml 540 ml 200 ml 100 ml 666 ml IV Total 0 ml 0 ml Output Urine Total 600 ml 900 ml 450 ml 350 ml 750 ml Stool Total 0 ml # Bowel Movements 0 1 0 Result Diagram: 12/10/160 12/10/16 0400 Imaging Last Impressions Chest X-Ray 12/08/16 0600 Signed Impressions: Service Date/Time: Thursday, December 08, 2016 04:21 - CONCLUSION: Mild bibasilar consolidation and small effusions not significantly changed. Patient has been extubated. Jasper Springer MD Renal Ultrasound 12/04/16 0000 Signed Impressions: Service Date/Time: November 17:52 - CONCLUSION: 1. Numerous cysts and chronic parenchymal disease of both kidneys. No evidence of obstructive uropathy or other acute abnormality. 2. Fuentes catheter present. Urinary bladder grossly unremarkable. 3. Cholelithiasis incidentally noted. Jasper Springer MD Lower Extremity Ultrasound 12/03/16 0000 Signed Impressions: Service Date/Time: Saturday, December 03, 2016 09:17 - CONCLUSION: Nonocclusive deep venous thrombus within the posterior tibial veins bilaterally. Galen Pierre MD Liver Ultrasound 12/02/16 0000 Signed Impressions: Service Date/Time: Friday, December 02, 2016 17:19 - CONCLUSION: 1. Common bile duct upper limits of normal caliber for a patient this age. No duct stone. 2. Several stones in the gallbladder measuring up to 14 mm in size. No evidence of acute cholecystitis Jasper Springer MD Chest CT 12/02/16 0000 Signed Impressions: Service Date/Time: Friday, December 02, 2016 10:46 - CONCLUSION: 1. Small bilateral pleural effusions with adjacent alveolar consolidations (right slightly worse than left) consistent with atelectasis and/or pneumonia. Clinical correlation is recommended. 2. Patchiness within the right upper lobe consistent with possible pneumonia. Clinical correlation is recommended. 3. Cardiomegaly, coronary artery calcifications and mitral annulus calcifications. 4. 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 5. Cholelithiasis. 6. Multiple simple and complex renal cysts bilaterally. 7. Degenerative changes and scoliosis of the thoracolumbar spine. Galen Pierre MD Head CT 12/01/16 2999 Signed Impressions: Service Date/Time: Friday, December 02, 2016 04:14 - CONCLUSION: Old infarction on the right and no acute process. K. Ezequiel Anthony MD Procedures Endotracheal intubation and extubation. Other Results Laboratory Tests Test 12/09/16 12/10/16 05:18 04:00 Phosphorus Level 2.9 MG/DL Magnesium Level 2.7 MG/DL White Blood Count 10.5 TH/MM3 Red Blood Count 3.49 MIL/MM3 Hemoglobin 10.5 GM/DL Hematocrit 32.6 % Mean Corpuscular Volume 93.4 FL Mean Corpuscular Hemoglobin 30.2 PG Mean Corpuscular Hemoglobin 32.3 % Concent Red Cell Distribution Width 17.4 % Platelet Count 209 TH/MM3 Mean Platelet Volume 9.0 FL Neutrophils (%) (Auto) 83.7 % Lymphocytes (%) (Auto) 10.5 % Monocytes (%) (Auto) 5.8 % Eosinophils (%) (Auto) 0.0 % Basophils (%) (Auto) 0.0 % Neutrophils # (Auto) 8.8 TH/MM3 Lymphocytes # (Auto) 1.1 TH/MM3 Monocytes # (Auto) 0.6 TH/MM3 Eosinophils # (Auto) 0.0 TH/MM3 Basophils # (Auto) 0.0 TH/MM3 CBC Comment DIFF FINAL Differential Comment Sodium Level 141 MEQ/L Potassium Level 4.2 MEQ/L Chloride Level 103 MEQ/L Carbon Dioxide Level 34.3 MEQ/L Anion Gap 4 MEQ/L Blood Urea Nitrogen 34 MG/DL Creatinine 0.61 MG/DL Estimat Glomerular Filtration 95 ML/MIN Rate Random Glucose 115 MG/DL Calcium Level 8.9 MG/DL Objective Remarks GENERAL: no acute distress. SKIN: Warm and dry. HEAD: Normocephalic. EYES: No scleral icterus. No injection or drainage. NECK: Supple, trachea midline. No JVD or lymphadenopathy. CARDIOVASCULAR: Regular rate and rhythm without murmurs, gallops, or rubs. RESPIRATORY: Severe Decreased breath sounds, no wheezing or crackles. GASTROINTESTINAL: Abdomen soft, non-tender, nondistended. MUSCULOSKELETAL: No cyanosis, or edema. BACK: Nontender without obvious deformity. No CVA tenderness. Medications and IVs Current Medications Medications (Trade) Dose Ordered Sig/Lili Route Start Time Stop Time Status Last Admin (NS Flush) 2 ml UNSCH PRN .XX 12/02/16 01:00 (NS Flush) 2 ml BID .XX 12/02/16 09:00 12/13/16 09:28 (Tylenol) 650 mg Q6H PRN PO 12/02/16 01:00 12/11/16 01:44 (Zofran Inj) 4 mg Q6H PRN IV 12/02/16 01:00 12/05/16 21:04 (Reglan Inj) 10 mg Q6H PRN IV 12/02/16 01:00 (Compazine Supp) 25 mg Q12H PRN RECTAL 12/02/16 01:00 Miscellaneous Information 1 Q361D XX 12/02/16 01:00 12/02/16 04:45 (Chlorhexidine 2% Cloth) Taper DAILY@04 TOP 12/02/16 04:00 11/28/17 03:59 12/06/16 03:39 (Chlorhexidine 2% Cloth) 3 pack UNSCH PRN TOP 12/02/16 01:00 (Lynn-Colace) 1 tab BID PO 12/02/16 09:00 12/13/16 09:30 (Milk Of Magnesia Liq) 30 ml Q12H PRN PO 12/02/16 01:00 (Senokot) 17.2 mg Q12H PRN PO 12/02/16 01:00 (Dulcolax Supp) 10 mg DAILY PRN RECTAL 12/02/16 01:00 (Lactulose Liq) 30 ml DAILY PRN PO 12/02/16 01:00 (Xanax) 0.25 mg Q8H PRN PO 12/02/16 01:00 12/13/16 05:29 (Norvasc) 5 mg DAILY PO 12/02/16 09:00 12/13/16 09:30 (Flexeril) 5 mg TID PO 12/02/16 09:00 12/13/16 12:57 (Breo Ellipta 100-25 Inh) 1 puff HS INH 12/02/16 21:00 Hold (Neurontin) 600 mg TID PO 12/02/16 09:00 12/13/16 12:57 (Milk Of Magnesia Liq) 30 ml DAILY PRN PO 12/02/16 01:00 (Miralax) 17 gm HS PO 12/02/16 21:00 12/10/16 20:11 Lactobacillus Acidophilus 1 tab 1 tab BID PO 12/02/16 09:00 12/13/16 09:29 Potassium Chloride 100 ml @ 50 mls/hr Q2H PRN IV 12/02/16 10:30 (KCl 20 Meq Premix Inj) 100 ml @ 50 mls/hr Q2H PRN IV 12/02/16 10:30 Potassium Bicarb/ Potassium Chloride 50 meq 50 meq UNSCH PRN PO 12/02/16 10:30 Potassium Chloride 100 ml @ 25 mls/hr UNSCH PRN IV 12/02/16 10:30 Potassium Chloride 100 ml @ 50 mls/hr Q2H PRN IV 12/02/16 10:30 (Magnesium Sulfate Inj/NS Inj) 100 ml @ 50 mls/hr UNSCH PRN IV 12/02/16 10:30 Magnesium Oxide 800 mg 800 mg UNSCH PRN PO 12/02/16 10:30 (Magnesium Sulfate Inj/NS Inj) 100 ml @ 50 mls/hr UNSCH PRN IV 12/02/16 10:30 Potassium Phosphate 2000 mg 2,000 mg Q4H PRN PO 12/02/16 10:30 (Sodium Phosphate Inj/NS 250 ml Inj) 250 ml @ 42 mls/hr UNSCH PRN IV 12/02/16 10:30 12/02/16 12:44 Potassium Phosphate 2000 mg 2,000 mg UNSCH PRN PO/TUBE 12/02/16 10:30 (Potassium Phosphate Inj/NS 250 ml Inj) 260 ml @ 42 mls/hr UNSCH PRN IV 12/02/16 10:30 (SoluMEDROL INJ) 40 mg Q8HR IV 12/02/16 22:00 12/13/16 12:57 (D50w (Vial) Inj) 50 ml UNSCH PRN IV 12/03/16 08:30 (Glucagon Inj) 1 mg UNSCH PRN OTHER 12/03/16 08:30 (NovoLIN R SUPPLEMENTAL SCALE) 1 Q6HR SQ 12/03/16 08:30 12/13/16 12:55 (Xarelto) 20 mg DAILY PO 12/03/16 13:00 12/13/16 09:30 (Peridex 0.12% Liq) 15 ml BID@08,20 MT 12/04/16 20:00 12/07/16 08:10 (Pepcid) 20 mg DAILY NG 12/04/16 09:00 12/13/16 09:29 (Ferrous Sulfate Liq) 300 mg BID PO 12/04/16 21:00 12/13/16 09:29 (Lasix Inj) 20 mg DAILY IV PUSH 12/04/16 12:00 12/13/16 09:29 (Synthroid) 25 mcg DAILY@0600 PO 12/06/16 06:00 12/13/16 05:29 (Reglan Inj) 5 mg Q8HR IV PUSH 12/06/16 14:00 12/13/16 12:57 (Apresoline Inj) 20 mg Q4H PRN IV PUSH 12/07/16 23:30 12/10/16 02:05 (Vasotec Inj) 2.5 mg Q6H PRN IV PUSH 12/07/16 23:30 (Percocet 5-325 Mg) 1 tab Q6H PRN PO 12/08/16 14:00 12/13/16 13:37 (Lopressor) 50 mg Q12HR PO 12/09/16 21:00 12/13/16 09:29 (Pill Splitter) 1 ea UNSCH PRN OTHER 12/10/16 10:30 A/P Assessment and Plan 1. Fibromyalgia/History of right posterior frontal lobe CVA/chronic benzodiazepine use/chronic opiate use On Xanax 0.25 mg every [address] head on admission revealed old cephalization of the right posterior frontal lobe. Neurontin 600 mill grams by mouth 3 times a day/home medication 2. Acute Hypoxemic respiratory failure Extubated 12/07/16, history of COPD/CAP Continue Oxygen as needed to maintain Oxygen saturation over 92% Pulmicort 0.5/2 one inhalation twice a day, Bronchodilator, mucolytic, Solu -Medrol 40 mg every [address] chest revealed bilateral lower lobe pneumonia/right upper lobe pneumonia peer support specialist is following- Dr. Cummings 3. 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 Echocardiogram 10/06 revealed EF 60%. Left atrial dilatation. No regional wall motion abnormality. Echocardiogram 12/06 revealed EF 65-70%. Trace TR. Normal pulmonary pressures. Noted CT chest revealed 4.5 fusiform dilatation of the aorta at the retrocardiac with cardiomegaly 4. Cholelithiasis/Hypoalbuminemia on Pepcid for GI prophylaxis, bowel regimen. 5. CAP on Aztreonam, Azithromycin, Flagyl since 12/02, cultures negative, afebrile, Strep pneumonia and Legionella antigen negative. 12/02 - sputum - negative 12/01 - blood cultures 2 - no growth 12/01 - urine - negative 6. Normocytic Anemia/chronic Xarelto 20 mg daily, Bilateral posterior tibial nonocclusive DVT, continue Iron sulfate Iron sulfate 325 mg 3 times a day. 7. Hypothyroidism continue Hormonal replacement GI prophylaxis- on Pepcid DVT Protonix- Xarelto 20mg daily (home med) No changes to anterior assessment. Discharge Planning Awaiting for peer support specialist for discharge. Galileo Gomez MD Dec 13, 2016 17:16
[2016-12-13] MEDS: POLYETHYLENE GLYCOL 17 GM PKG PO SCH (20:16)
[2016-12-14] VITALS (20 sets, daily range): BP systolic 114–164; BP diastolic 56–82; PULSE 51–79; RESP 15–35; TEMP 98–98.3; O2SAT 83–97
[2016-12-14] MEDS: RESP: ALBUTEROL 2.5 MG/IPRATROPIUM 0.5 MG NEB (SCH) NEB ×7 (00:47→23:21)
[2016-12-14] MEDS: CHLORHEXIDINE GLUCONATE 2 % 1 PACK (2 CLOTHS) TOP SCH (04:00)
[2016-12-14] MEDS: ALPRAZolam 0.25 MG TAB PO PRN (04:28)
[2016-12-14] MEDS: oxyCODONE/ACETAMINOPHEN 5 MG/325 MG TAB PO PRN (04:28)
[2016-12-14] MEDS: METOCLOPRAMIDE HCL 10 MG/2 ML VIAL IV PUSH SCH ×3 (05:40→20:35)
[2016-12-14] MEDS: LEVOTHYROXINE SODIUM 25 MCG TAB PO SCH (05:41)
[2016-12-14] MEDS: methylPREDNISolone SOD SUCC 40 MG/1 ML VIAL IV SCH ×3 (05:41→22:00)
[2016-12-14] MEDS: INSULIN NovoLIN REGULAR SUPPLEMENTAL SCALE SQ SCH ×5 (05:42→23:50)
[2016-12-14] MEDS: CHLORHEXIDINE 0.12% (ORAL KIT) 15 ML CUP MT SCH ×2 (08:00→20:00)
[2016-12-14] MEDS: RESP: BUDESONIDE 0.5 MG/2 ML NEB NEB SCH ×2 (08:39→19:17)
[2016-12-14] MEDS: FUROSEMIDE 20 MG/2 ML VIAL IV PUSH SCH (09:15)
[2016-12-14] MEDS: FERROUS SULFATE 300 MG /5ML UDC PO SCH ×2 (09:15→20:34)
[2016-12-14] MEDS: FAMOTIDINE 20 MG TAB NG SCH (09:15)
[2016-12-14] MEDS: CYCLOBENZAPRINE HCL 10 MG TAB PO SCH ×3 (09:15→17:44)
[2016-12-14] MEDS: METOPROLOL TARTRATE 25 MG TAB PO SCH ×2 (09:15→20:36)
[2016-12-14] MEDS: LACTOBACILLUS ACIDOPHILUS TAB PO SCH ×2 (09:15→20:34)
[2016-12-14] MEDS: SODIUM CHLORIDE 0.9% FLUSH 10 ML FLUSH SCH ×2 (09:15→20:35)
[2016-12-14] MEDS: GABAPENTIN 300 MG CAP PO SCH ×3 (09:16→17:44)
[2016-12-14] MEDS: RIVAROXABAN 20 MG TAB PO SCH (09:16)
[2016-12-14] MEDS: amLODIPine BESYLATE 5 MG TAB PO SCH (09:16)
[2016-12-14] MEDS: DOCUSATE SODIUM 50 MG/SENNA 8.6 MG TAB PO SCH ×2 (09:16→21:00)
--- NOTE | 2016-12-14 13:15 | HHI.PR ---
Subjective Remarks Sandwich Hand notes: 76-year-old female presents with a history of shortness of breath that started at home. She has also altered mental status. Normally patient is awake with eyes open and answers questions right away. EMS reports pt received a muscle relaxer just prior to their arrival. She has received albuterol x 2 en route with however her CO2 Climbing on the BiPAP machine and she became more lethargic with less responsiveness. She was intubated in the emergency department. 12/03 Patient is sedated with Diprivan and intubated. Afebrile. On ACV with PEEP: 10, FIO2 45. 12/04: Afebrile. Arousable on propofol at 50 mcg/kg/m. PEEP is currently around 7. Tolerating tube feeds. Positive BM. 12/05: Afebrile. Currently all sedation currently off with only one working IV. PEEP 8. Tolerating tube feeding. Positive BM 3 yesterday. 12/06: Currently on PSV trial. Adequate urine output. Difficulty in obtaining peripheral blood draws. Positive BM. Tolerating tube feeding. Awake and alert and following commands. 12/07: On sedation vacation about initiates PSV trial. Lasted around 8 hours yesterday. Continue diuresis. Tolerating tube feeding. Positive BM. 12/08 Patient was extubated yesterday now on partial rebreather with good sats. Hypertensive. 12/09 No events overnight. Patient is on 50%VM. Afebrile. Hospitalist Notes: 12/12: Seen in his bedroom, in the presence of her Daughter Mrs. Cespedes no new issues 12/13; No new issues, continue management by chemical operations specialist. 12/14: Stable in her bedroom no nausea, vomit or diarrhea, stable continue high oxygen demand. Objective Vital Signs Date Time Temp Pulse Resp B/P Pulse Ox O2 Delivery O2 Flow Rate FiO2 12/14/16 13:00 57 28 130/72 93 12/14/16 12:00 65 12/14/16 12:00 98.3 64 27 151/68 91 12/14/16 11:00 66 19 155/74 96 12/14/16 10:00 79 35 155/80 85 12/14/16 10:00 79 12/14/16 09:00 74 27 151/76 90 12/14/16 08:42 93 Partial Rebreather 12.00 6/25/17 08:00 65 12/14/16 08:00 98.0 65 22 160/82 96 12/14/16 07:00 Non-Rebreather 11.00 85 12/14/16 07:00 68 15 137/70 97 12/14/16 06:00 51 12/14/16 04:00 66 12/14/16 04:00 98.1 66 24 157/77 92 12/14/16 02:00 71 12/14/16 00:00 98.2 63 23 163/74 92 12/14/16 00:00 63 12/13/16 22:00 62 12/13/16 20:38 97 Partial Rebreather 10.00 12/13/16 20:00 75 12/13/16 20:00 98.1 75 13 140/67 92 12/13/16 19:00 94 Non-Rebreather 11.00 12/13/16 18:22 96 Partial Non-Rebreather 11.00 12/13/16 18:00 72 31 140/65 96 12/13/16 18:00 72 12/13/16 17:00 75 33 145/66 83 12/13/16 16:00 64 12/13/16 16:00 98.7 64 33 153/72 90 12/13/16 15:00 57 39 125/66 94 12/13/16 14:00 57 32 129/63 96 12/13/16 14:00 57 I/O 12/13/16 12/13/16 12/13/16 12/14/16 12/14/16 12/14/16 07:00 15:00 23:00 07:00 15:00 23:00 Intake Total 100 ml 666 ml 844 ml 100 ml Output Total 350 ml 750 ml 250 ml 2 ml Balance -250 ml -84 ml 594 ml 98 ml Intake Oral 100 ml 666 ml 844 ml 100 ml Output Urine Total 350 ml 750 ml 250 ml 2 ml Stool Total 0 ml # Voids 1 2 # Bowel Movements 0 0 0 Result Diagram: 12/10/160 12/10/16 0400 Imaging Last Impressions Chest X-Ray 12/08/16 0600 Signed Impressions: Service Date/Time: Thursday, December 08, 2016 04:21 - CONCLUSION: Mild bibasilar consolidation and small effusions not significantly changed. Patient has been extubated. Jasper Springer MD Renal Ultrasound 12/04/16 Signed Impressions: Service Date/Time: November 17:52 - CONCLUSION: 1. Numerous cysts and chronic parenchymal disease of both kidneys. No evidence of obstructive uropathy or other acute abnormality. 2. Fuentes catheter present. Urinary bladder grossly unremarkable. 3. Cholelithiasis incidentally noted. Jasper Springer MD Lower Extremity Ultrasound 12/03/16 Signed Impressions: Service Date/Time: Saturday, December 03, 2016 09:17 - CONCLUSION: Nonocclusive deep venous thrombus within the posterior tibial veins bilaterally. Galen Pierre MD Liver Ultrasound 12/02/16 Signed Impressions: Service Date/Time: Friday, December 02, 2016 17:19 - CONCLUSION: 1. Common bile duct upper limits of normal caliber for a patient this age. No duct stone. 2. Several stones in the gallbladder measuring up to 14 mm in size. No evidence of acute cholecystitis Jasper Springer MD Chest CT 12/02/16 Signed Impressions: Service Date/Time: Friday, December 02, 2016 10:46 - CONCLUSION: 1. Small bilateral pleural effusions with adjacent alveolar consolidations (right slightly worse than left) consistent with atelectasis and/or pneumonia. Clinical correlation is recommended. 2. Patchiness within the right upper lobe consistent with possible pneumonia. Clinical correlation is recommended. 3. Cardiomegaly, coronary artery calcifications and mitral annulus calcifications. 4. 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 5. Cholelithiasis. 6. Multiple simple and complex renal cysts bilaterally. 7. Degenerative changes and scoliosis of the thoracolumbar spine. Galen Pierre MD Head CT 12/01/16 6783 Signed Impressions: Service Date/Time: Friday, December 02, 2016 04:14 - CONCLUSION: Old infarction on the right and no acute process. Anuradha Anthony MD Procedures Endotracheal intubation and extubation. Other Results Laboratory Tests Test 12/10/16 04:00 White Blood Count 10.5 TH/MM3 Red Blood Count 3.49 MIL/MM3 Hemoglobin 10.5 GM/DL Hematocrit 32.6 % Mean Corpuscular Volume 93.4 FL Mean Corpuscular Hemoglobin 30.2 PG Mean Corpuscular Hemoglobin 32.3 % Concent Red Cell Distribution Width 17.4 % Platelet Count 209 TH/MM3 Mean Platelet Volume 9.0 FL Neutrophils (%) (Auto) 83.7 % Lymphocytes (%) (Auto) 10.5 % Monocytes (%) (Auto) 5.8 % Eosinophils (%) (Auto) 0.0 % Basophils (%) (Auto) 0.0 % Neutrophils # (Auto) 8.8 TH/MM3 Lymphocytes # (Auto) 1.1 TH/MM3 Monocytes # (Auto) 0.6 TH/MM3 Eosinophils # (Auto) 0.0 TH/MM3 Basophils # (Auto) 0.0 TH/MM3 CBC Comment DIFF FINAL Differential Comment Sodium Level 141 MEQ/L Potassium Level 4.2 MEQ/L Chloride Level 103 MEQ/L Carbon Dioxide Level 34.3 MEQ/L Anion Gap 4 MEQ/L Blood Urea Nitrogen 34 MG/DL Creatinine 0.61 MG/DL Estimat Glomerular Filtration 95 ML/MIN Rate Random Glucose 115 MG/DL Calcium Level 8.9 MG/DL Objective Remarks GENERAL: Obese patient. no acute distress. SKIN: Warm and dry. HEAD: Normocephalic. EYES: No scleral icterus. No injection or drainage. NECK: Supple, trachea midline. No JVD or lymphadenopathy. CARDIOVASCULAR: Regular rate and rhythm without murmurs, gallops, or rubs. RESPIRATORY: Severe Decreased breath sounds, no wheezing or crackles. GASTROINTESTINAL: Abdomen soft, non-tender, nondistended. MUSCULOSKELETAL: No cyanosis, or edema. BACK: Nontender without obvious deformity. No CVA tenderness. Medications and IVs Current Medications Medications (Trade) Dose Ordered Sig/Lili Route Start Time Stop Time Status Last Admin (NS Flush) 2 ml UNSCH PRN .XX 12/02/16 01:00 (NS Flush) 2 ml BID .XX 12/02/16 09:00 12/14/16 09:15 (Tylenol) 650 mg Q6H PRN PO 12/02/16 01:00 12/11/16 01:44 (Zofran Inj) 4 mg Q6H PRN IV 12/02/16 01:00 12/05/16 21:04 (Reglan Inj) 10 mg Q6H PRN IV 12/02/16 01:00 (Compazine Supp) 25 mg Q12H PRN RECTAL 12/02/16 01:00 Miscellaneous Information 1 Q361D XX 12/02/16 01:00 12/02/16 04:45 (Chlorhexidine 2% Cloth) Taper DAILY@04 TOP 12/02/16 04:00 11/28/17 03:59 12/14/16 04:00 (Chlorhexidine 2% Cloth) 3 pack UNSCH PRN TOP 12/02/16 01:00 (Lynn-Colace) 1 tab BID PO 12/02/16 09:00 12/14/16 09:16 (Milk Of Magnesia Liq) 30 ml Q12H PRN PO 12/02/16 01:00 (Senokot) 17.2 mg Q12H PRN PO 12/02/16 01:00 (Dulcolax Supp) 10 mg DAILY PRN RECTAL 12/02/16 01:00 (Lactulose Liq) 30 ml DAILY PRN PO 12/02/16 01:00 (Xanax) 0.25 mg Q8H PRN PO 12/02/16 01:00 12/14/16 04:28 (Norvasc) 5 mg DAILY PO 12/02/16 09:00 12/14/16 09:16 (Flexeril) 5 mg TID PO 12/02/16 09:00 12/14/16 12:40 (Breo Ellipta 100-25 Inh) 1 puff HS INH 12/02/16 21:00 Hold (Neurontin) 600 mg TID PO 12/02/16 09:00 12/14/16 12:40 (Milk Of Magnesia Liq) 30 ml DAILY PRN PO 12/02/16 01:00 (Miralax) 17 gm HS PO 12/02/16 21:00 12/13/16 20:16 Lactobacillus Acidophilus 1 tab 1 tab BID PO 12/02/16 09:00 12/14/16 09:15 Potassium Chloride 100 ml @ 50 mls/hr Q2H PRN IV 12/02/16 10:30 (KCl 20 Meq Premix Inj) 100 ml @ 50 mls/hr Q2H PRN IV 12/02/16 10:30 Potassium Bicarb/ Potassium Chloride 50 meq 50 meq UNSCH PRN PO 12/02/16 10:30 Potassium Chloride 100 ml @ 25 mls/hr UNSCH PRN IV 12/02/16 10:30 Potassium Chloride 100 ml @ 50 mls/hr Q2H PRN IV 12/02/16 10:30 (Magnesium Sulfate Inj/NS Inj) 100 ml @ 50 mls/hr UNSCH PRN IV 12/02/16 10:30 Magnesium Oxide 800 mg 800 mg UNSCH PRN PO 12/02/16 10:30 (Magnesium Sulfate Inj/NS Inj) 100 ml @ 50 mls/hr UNSCH PRN IV 12/02/16 10:30 Potassium Phosphate 2000 mg 2,000 mg Q4H PRN PO 12/02/16 10:30 (Sodium Phosphate Inj/NS 250 ml Inj) 250 ml @ 42 mls/hr UNSCH PRN IV 12/02/16 10:30 12/02/16 12:44 Potassium Phosphate 2000 mg 2,000 mg UNSCH PRN PO/TUBE 12/02/16 10:30 (Potassium Phosphate Inj/NS 250 ml Inj) 260 ml @ 42 mls/hr UNSCH PRN IV 12/02/16 10:30 (SoluMEDROL INJ) 40 mg Q8HR IV 12/02/16 22:00 12/14/16 05:41 (D50w (Vial) Inj) 50 ml UNSCH PRN IV 12/03/16 08:30 (Glucagon Inj) 1 mg UNSCH PRN OTHER 12/03/16 08:30 (NovoLIN R SUPPLEMENTAL SCALE) 1 Q6HR SQ 12/03/16 08:30 12/14/16 12:39 (Xarelto) 20 mg DAILY PO 12/03/16 13:00 12/14/16 09:16 (Peridex 0.12% Liq) 15 ml BID@08,20 MT 12/04/16 20:00 12/13/16 20:00 (Pepcid) 20 mg DAILY NG 12/04/16 09:00 12/14/16 09:15 (Ferrous Sulfate Liq) 300 mg BID PO 12/04/16 21:00 12/14/16 09:15 (Lasix Inj) 20 mg DAILY IV PUSH 12/04/16 12:00 12/14/16 09:15 (Synthroid) 25 mcg DAILY@0600 PO 12/06/16 06:00 12/14/16 05:41 (Reglan Inj) 5 mg Q8HR IV PUSH 12/06/16 14:00 12/14/16 05:40 (Apresoline Inj) 20 mg Q4H PRN IV PUSH 12/07/16 23:30 12/10/16 02:05 (Vasotec Inj) 2.5 mg Q6H PRN IV PUSH 12/07/16 23:30 (Percocet 5-325 Mg) 1 tab Q6H PRN PO 12/08/16 14:00 12/14/16 04:28 (Lopressor) 50 mg Q12HR PO 12/09/16 21:00 12/14/16 09:15 (Pill Splitter) 1 ea UNSCH PRN OTHER 12/10/16 10:30 A/P Assessment and Plan 1. Fibromyalgia/History of right posterior frontal lobe CVA/chronic benzodiazepine use/chronic opiate use On Xanax 0.25 mg every [address] head on admission revealed old cephalization of the right posterior frontal lobe. Neurontin 600 mill grams by mouth 3 times a day/home medication 2. Acute Hypoxemic respiratory failure Extubated 12/07/16, history of COPD/CAP Continue Oxygen as needed to maintain Oxygen saturation over 92% Pulmicort 0.5/2 one inhalation twice a day, Bronchodilator, mucolytic, Solu -Medrol 40 mg every [address] chest revealed bilateral lower lobe pneumonia/right upper lobe pneumonia , was on antibiotics. chemical operations specialist is following- Dr. Cummings 3. 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 Echocardiogram 10/06 revealed EF 60%. Left atrial dilatation. No regional wall motion abnormality. Echocardiogram 12/06 revealed EF 65-70%. Trace TR. Normal pulmonary pressures. Noted CT chest revealed 4.5 fusiform dilatation of the aorta at the retrocardiac with cardiomegaly 4. Cholelithiasis/Hypoalbuminemia on Pepcid for GI prophylaxis, bowel regimen. 5. CAP on Aztreonam, Azithromycin, Flagyl since 12/02, cultures negative, afebrile, Strep pneumonia and Legionella antigen negative. 12/02 - sputum - negative 12/01 - blood cultures 2 - no growth 12/01 - urine - negative 6. Normocytic Anemia/chronic Xarelto 20 mg daily, Bilateral posterior tibial nonocclusive DVT, continue Iron sulfate Iron sulfate 325 mg 3 times a day. 7. Hypothyroidism continue Hormonal replacement GI prophylaxis- on Pepcid DVT Protonix- Xarelto 20mg daily (home med) No changes to anterior assessment. Discharge Planning Awaiting for chemical operations specialist for discharge. Galileo Gomez MD Dec 14, 2016 13:15
[2016-12-14] MEDS: ONDANSETRON HCL 4 MG/2 ML VIAL IV PRN (13:24)
[2016-12-14] MEDS: POLYETHYLENE GLYCOL 17 GM PKG PO SCH (20:36)
[2016-12-15] VITALS (13 sets, daily range): BP systolic 126–161; BP diastolic 60–74; PULSE 57–79; RESP 20–30; TEMP 97.6–98.6; O2SAT 91–96
[2016-12-15] MEDS: ALPRAZolam 0.25 MG TAB PO PRN ×2 (00:11→14:00)
[2016-12-15] MEDS: CHLORHEXIDINE GLUCONATE 2 % 1 PACK (2 CLOTHS) TOP SCH (04:00)
[2016-12-15] MEDS: RESP: ALBUTEROL 2.5 MG/IPRATROPIUM 0.5 MG NEB (SCH) NEB ×5 (04:08→19:44)
[2016-12-15] MEDS: methylPREDNISolone SOD SUCC 40 MG/1 ML VIAL IV SCH ×3 (05:24→20:34)
[2016-12-15] MEDS: LEVOTHYROXINE SODIUM 25 MCG TAB PO SCH (05:24)
[2016-12-15] MEDS: INSULIN NovoLIN REGULAR SUPPLEMENTAL SCALE SQ SCH ×3 (05:24→17:37)
[2016-12-15] MEDS: METOCLOPRAMIDE HCL 10 MG/2 ML VIAL IV PUSH SCH ×3 (05:24→20:34)
[2016-12-15] MEDS: oxyCODONE/ACETAMINOPHEN 5 MG/325 MG TAB PO PRN ×2 (06:17→20:35)
--- NOTE | 2016-12-15 07:49 | HHI.PR ---
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 She has also altered mental status. Normally patient is awake with eyes open and answers questions right away. EMS reports pt received a muscle relaxer just prior to their arrival. She has received albuterol x 2 en route with however her CO2 Climbing on the BiPAP machine and she became more lethargic with less responsiveness. She was intubated in the emergency department. 12/03 Patient is sedated with Diprivan and intubated. Afebrile. On ACV with PEEP: 10, FIO2 45. 12/04: Afebrile. Arousable on propofol at 50 mcg/kg/m. PEEP is currently around 7. Tolerating tube feeds. Positive BM. 12/05: Afebrile. Currently all sedation currently off with only one working IV. PEEP 8. Tolerating tube feeding. Positive BM 3 yesterday. 12/06: Currently on PSV trial. Adequate urine output. Difficulty in obtaining peripheral blood draws. Positive BM. Tolerating tube feeding. Awake and alert and following commands. 12/07: On sedation vacation about initiates PSV trial. Lasted around 8 hours yesterday. Continue diuresis. Tolerating tube feeding. Positive BM. 12/08 Patient was extubated yesterday now on partial rebreather with good sats. Hypertensive. 12/09 No events overnight. Patient is on 50%VM. Afebrile. Hospitalist Notes: 12/12: Seen in his bedroom, in the presence of her Daughter Mrs. Cespedes no new issues 12/13; No new issues, continue management by technical information specialist. 12/14: Stable continue high oxygen demand. 12/15: Seen in her bedroom in the presence of nurse Miss Goetz, on a non rebreather mask, continue present care. No nausea,vomit or diarrhea. Objective Vital Signs Date Time Temp Pulse Resp B/P Pulse Ox O2 Delivery O2 Flow Rate FiO2 12/15/16 07:00 Non-Rebreather 12.00 85 12/15/16 06:00 75 12/15/16 04:00 98.1 63 21 137/65 94 12/15/16 04:00 63 12/15/16 02:00 63 12/15/16 00:00 61 12/15/16 00:00 98.1 61 30 141/66 91 12/14/16 22:00 56 12/14/16 20:00 98.1 63 17 114/56 95 12/14/16 20:00 63 12/14/16 19:17 92 Partial Rebreather 10.00 12/14/16 19:00 Non-Rebreather 12.00 85 12/14/16 18:00 70 12/14/16 18:00 70 28 164/59 83 12/14/16 17:00 64 27 141/63 93 12/14/16 16:00 98.3 65 20 129/60 95 12/14/16 16:00 65 12/14/16 15:00 62 29 125/62 90 12/14/16 14:00 67 24 156/74 86 12/14/16 14:00 67 12/14/16 13:00 57 28 130/72 93 12/14/16 12:00 65 12/14/16 12:00 98.3 64 27 151/68 91 12/14/16 11:00 66 19 155/74 96 12/14/16 10:00 79 35 155/80 85 12/14/16 10:00 79 12/14/16 09:00 74 27 151/76 90 12/14/16 08:42 93 Partial Rebreather 12.00 12/14/16 08:00 65 12/14/16 08:00 98.0 65 22 160/82 96 I/O 12/14/16 12/14/16 12/14/16 12/15/16 12/15/16 12/15/16 07:00 15:00 23:00 07:00 15:00 23:00 Intake Total 850 ml 444 ml 500 ml 100 ml Output Total 2 ml 1800 ml 590 ml Balance 848 ml -1356 ml -90 ml 100 ml Intake Oral 850 ml 444 ml 500 ml 100 ml Output Urine Total 2 ml 1800 ml 590 ml Stool Total 0 ml # Voids 4 2 3 # Bowel Movements 0 0 1 1 Imaging Last Impressions Chest X-Ray 12/08/16 0600 Signed Impressions: Service Date/Time: Thursday, December 08, 2016 04:21 - CONCLUSION: Mild bibasilar consolidation and small effusions not significantly changed. Patient has been extubated. Jasper Springer MD Renal Ultrasound 12/04/16 0000 Signed Impressions: Service Date/Time: November 17:52 - CONCLUSION: 1. Numerous cysts and chronic parenchymal disease of both kidneys. No evidence of obstructive uropathy or other acute abnormality. 2. Fuentes catheter present. Urinary bladder grossly unremarkable. 3. Cholelithiasis incidentally noted. Jasper Springer MD Lower Extremity Ultrasound 12/03/16 0000 Signed Impressions: Service Date/Time: Saturday, December 03, 2016 09:17 - CONCLUSION: Nonocclusive deep venous thrombus within the posterior tibial veins bilaterally. Galen Pierre MD Liver Ultrasound 12/02/16 0000 Signed Impressions: Service Date/Time: Friday, December 02, 2016 17:19 - CONCLUSION: 1. Common bile duct upper limits of normal caliber for a patient this age. No duct stone. 2. Several stones in the gallbladder measuring up to 14 mm in size. No evidence of acute cholecystitis Jasper Springer MD Chest CT 12/02/16 Signed Impressions: Service Date/Time: Friday, December 02, 2016 10:46 - CONCLUSION: 1. Small bilateral pleural effusions with adjacent alveolar consolidations (right slightly worse than left) consistent with atelectasis and/or pneumonia. Clinical correlation is recommended. 2. Patchiness within the right upper lobe consistent with possible pneumonia. Clinical correlation is recommended. 3. Cardiomegaly, coronary artery calcifications and mitral annulus calcifications. 4. 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 5. Cholelithiasis. 6. Multiple simple and complex renal cysts bilaterally. 7. Degenerative changes and scoliosis of the thoracolumbar spine. 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 Anuradha Anthony MD Procedures Endotracheal intubation and extubation. Other Results No new laboratory Objective Remarks GENERAL: Obese patient. no acute distress. SKIN: Warm and dry. HEAD: Normocephalic. EYES: No scleral icterus. No injection or drainage. NECK: Supple, trachea midline. No JVD or lymphadenopathy. CARDIOVASCULAR: Regular rate and rhythm without murmurs, gallops, or rubs. RESPIRATORY: Severe Decreased breath sounds, coarse breathing sounds. GASTROINTESTINAL: Abdomen soft, non-tender, nondistended. MUSCULOSKELETAL: No cyanosis, or edema. BACK: Nontender without obvious deformity. No CVA tenderness. Medications and IVs Current Medications Medications (Trade) Dose Ordered Sig/Lili Route Start Time Stop Time Status Last Admin (NS Flush) 2 ml UNSCH PRN .XX 12/02/16 01:00 (NS Flush) 2 ml BID .XX 12/02/16 09:00 12/14/16 20:35 (Tylenol) 650 mg Q6H PRN PO 12/02/16 01:00 12/11/16 01:44 (Zofran Inj) 4 mg Q6H PRN IV 12/02/16 01:00 12/14/16 13:24 (Reglan Inj) 10 mg Q6H PRN IV 12/02/16 01:00 (Compazine Supp) 25 mg Q12H PRN RECTAL 12/02/16 01:00 Miscellaneous Information 1 Q361D XX 12/02/16 01:00 12/02/16 04:45 (Chlorhexidine 2% Cloth) Taper DAILY@04 TOP 12/02/16 04:00 11/28/17 03:59 12/15/16 04:00 (Chlorhexidine 2% Cloth) 3 pack UNSCH PRN TOP 12/02/16 01:00 (Lynn-Colace) 1 tab BID PO 12/02/16 09:00 12/14/16 21:00 (Milk Of Magnesia Liq) 30 ml Q12H PRN PO 12/02/16 01:00 (Senokot) 17.2 mg Q12H PRN PO 12/02/16 01:00 (Dulcolax Supp) 10 mg DAILY PRN RECTAL 12/02/16 01:00 (Lactulose Liq) 30 ml DAILY PRN PO 12/02/16 01:00 (Xanax) 0.25 mg Q8H PRN PO 12/02/16 01:00 12/15/16 00:11 (Norvasc) 5 mg DAILY PO 12/02/16 09:00 12/14/16 09:16 (Flexeril) 5 mg TID PO 12/02/16 09:00 12/14/16 17:44 (Breo Ellipta 100-25 Inh) 1 puff HS INH 12/02/16 21:00 Hold (Neurontin) 600 mg TID PO 12/02/16 09:00 12/14/16 17:44 (Milk Of Magnesia Liq) 30 ml DAILY PRN PO 12/02/16 01:00 (Miralax) 17 gm HS PO 12/02/16 21:00 12/14/16 20:36 Lactobacillus Acidophilus 1 tab 1 tab BID PO 12/02/16 09:00 12/14/16 20:34 Potassium Chloride 100 ml @ 50 mls/hr Q2H PRN IV 12/02/16 10:30 (KCl 20 Meq Premix Inj) 100 ml @ 50 mls/hr Q2H PRN IV 12/02/16 10:30 Potassium Bicarb/ Potassium Chloride 50 meq 50 meq UNSCH PRN PO 12/02/16 10:30 Potassium Chloride 100 ml @ 25 mls/hr UNSCH PRN IV 12/02/16 10:30 Potassium Chloride 100 ml @ 50 mls/hr Q2H PRN IV 12/02/16 10:30 (Magnesium Sulfate Inj/NS Inj) 100 ml @ 50 mls/hr UNSCH PRN IV 12/02/16 10:30 Magnesium Oxide 800 mg 800 mg UNSCH PRN PO 12/02/16 10:30 (Magnesium Sulfate Inj/NS Inj) 100 ml @ 50 mls/hr UNSCH PRN IV 12/02/16 10:30 Potassium Phosphate 2000 mg 2,000 mg Q4H PRN PO 12/02/16 10:30 (Sodium Phosphate Inj/NS 250 ml Inj) 250 ml @ 42 mls/hr UNSCH PRN IV 12/02/16 10:30 12/02/16 12:44 Potassium Phosphate 2000 mg 2,000 mg UNSCH PRN PO/TUBE 12/02/16 10:30 (Potassium Phosphate Inj/NS 250 ml Inj) 260 ml @ 42 mls/hr UNSCH PRN IV 12/02/16 10:30 (SoluMEDROL INJ) 40 mg Q8HR IV 12/02/16 22:00 12/15/16 05:24 (D50w (Vial) Inj) 50 ml UNSCH PRN IV 12/03/16 08:30 (Glucagon Inj) 1 mg UNSCH PRN OTHER 12/03/16 08:30 (NovoLIN R SUPPLEMENTAL SCALE) 1 Q6HR SQ 12/03/16 08:30 12/15/16 05:24 (Xarelto) 20 mg DAILY PO 12/03/16 13:00 12/14/16 09:16 (Peridex 0.12% Liq) 15 ml BID@08,20 MT 12/04/16 20:00 12/14/16 20:00 (Pepcid) 20 mg DAILY NG 12/04/16 09:00 12/14/16 09:15 (Ferrous Sulfate Liq) 300 mg BID PO 12/04/16 21:00 12/14/16 20:34 (Lasix Inj) 20 mg DAILY IV PUSH 12/04/16 12:00 12/14/16 09:15 (Synthroid) 25 mcg DAILY@0600 PO 12/06/16 06:00 12/15/16 05:24 (Reglan Inj) 5 mg Q8HR IV PUSH 12/06/16 14:00 12/15/16 05:24 (Apresoline Inj) 20 mg Q4H PRN IV PUSH 12/07/16 23:30 12/10/16 02:05 (Vasotec Inj) 2.5 mg Q6H PRN IV PUSH 12/07/16 23:30 (Percocet 5-325 Mg) 1 tab Q6H PRN PO 12/08/16 14:00 12/15/16 06:17 (Lopressor) 50 mg Q12HR PO 12/09/16 21:00 12/14/16 20:36 (Pill Splitter) 1 ea UNSCH PRN OTHER 12/10/16 10:30 A/P Assessment and Plan 1. Fibromyalgia/History of right posterior frontal lobe CVA/chronic benzodiazepine use/chronic opiate use On Xanax 0.25 mg every [address] head on admission revealed old cephalization of the right posterior frontal lobe. Neurontin 600 mill grams by mouth 3 times a day/home medication 2. Acute Hypoxemic respiratory failure Extubated 12/07/16, history of COPD/CAP Continue Oxygen as needed to maintain Oxygen saturation over 92% Pulmicort 0.5/2 one inhalation twice a day, Bronchodilator, mucolytic, Solu -Medrol 40 mg every [address] chest revealed bilateral lower lobe pneumonia/right upper lobe pneumonia , was on antibiotics. technical information specialist is following- Dr. Cummings, at this time on non rebreather mask. 3. 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 Echocardiogram 10/06 revealed EF 60%. Left atrial dilatation. No regional wall motion abnormality. Echocardiogram 12/06 revealed EF 65-70%. Trace TR. Normal pulmonary pressures. Noted CT chest revealed 4.5 fusiform dilatation of the aorta at the retrocardiac with cardiomegaly 4. Cholelithiasis/Hypoalbuminemia on Pepcid for GI prophylaxis, bowel regimen. 5. CAP on Aztreonam, Azithromycin, Flagyl since 12/02, cultures negative, afebrile, Strep pneumonia and Legionella antigen negative. 12/02 - sputum - negative 12/01 - blood cultures 2 - no growth 12/01 - urine - negative 6. Normocytic Anemia/chronic Xarelto 20 mg daily, Bilateral posterior tibial nonocclusive DVT, continue Iron sulfate Iron sulfate 325 mg 3 times a day. 7. Hypothyroidism continue Hormonal replacement GI prophylaxis- on Pepcid DVT Protonix- Xarelto 20mg daily (home med) Poor fci prognosis. Discharge Planning not yet ready for discharge Poor terminal gauger prognosis. Galileo Gomez MD Dec 15, 2016 07:49
[2016-12-15] MEDS: CHLORHEXIDINE 0.12% (ORAL KIT) 15 ML CUP MT SCH ×2 (08:00→20:00)
[2016-12-15] MEDS: FERROUS SULFATE 300 MG /5ML UDC PO SCH ×2 (08:11→20:34)
[2016-12-15] MEDS: SODIUM CHLORIDE 0.9% FLUSH 10 ML FLUSH SCH ×2 (08:11→20:35)
[2016-12-15] MEDS: LACTOBACILLUS ACIDOPHILUS TAB PO SCH ×2 (08:12→20:34)
[2016-12-15] MEDS: GABAPENTIN 300 MG CAP PO SCH ×3 (08:12→17:37)
[2016-12-15] MEDS: CYCLOBENZAPRINE HCL 10 MG TAB PO SCH ×3 (08:12→17:37)
[2016-12-15] MEDS: METOPROLOL TARTRATE 25 MG TAB PO SCH ×2 (08:13→20:35)
[2016-12-15] MEDS: RIVAROXABAN 20 MG TAB PO SCH (08:13)
[2016-12-15] MEDS: amLODIPine BESYLATE 5 MG TAB PO SCH (08:13)
[2016-12-15] MEDS: FUROSEMIDE 20 MG/2 ML VIAL IV PUSH SCH (08:14)
[2016-12-15] MEDS: DOCUSATE SODIUM 50 MG/SENNA 8.6 MG TAB PO SCH ×2 (08:14→20:35)
[2016-12-15] MEDS: RESP: BUDESONIDE 0.5 MG/2 ML NEB NEB SCH ×2 (08:36→19:44)
[2016-12-15] MEDS: FAMOTIDINE 20 MG TAB NG SCH (08:38)
[2016-12-15] MEDS: ACETAMINOPHEN 325 MG TAB PO PRN (08:38)
--- NOTE | 2016-12-15 09:31 | RADRPT ---
EXAM DATE/TIME: 12/15/2016 08:00 [place] COMPARISON: CT THORAX W/O CONTRAST, December 02, 2016, 10:46. CHEST SINGLE AP, December 08, 2016, 4:21. INDICATIONS : Short of breath. MEDICAL HISTORY : Chronic obstructive pulmonary disease. Hypercholesterolemia. Carcinoma, thyroid. DVT dyspnea SURGICAL HISTORY : Tonsillectomy. Tubal ligation. cataract surgery radiation therapy ENCOUNTER: Subsequent ACUITY: 2 weeks PAIN SCORE: 2/10 LOCATION: Bilateral upper chest FINDINGS: Portable AP views of the chest demonstrate a normal-sized cardiac silhouette. There are stable bibasi lar pleural-parenchymal opacities. No pneumothorax is visualized. EKG lines overlie the patient. Ther e is calcification of the aorta. CONCLUSION: Stable chest x-ray with bibasilar opacity representing pleural effusions with associated volume loss and/or airspace consolidation. Jasper Head MD on December 15, 2016 at 9:28 Board Certified Radiologist. This report was verified electronically.
--- NOTE | 2016-12-15 19:37 | HHI.PR ---
Subjective Remarks 76 YOWf with Severe COPD, known to me from office has multiple admissions in the hosp Extubated 12/07 Appetite poor On Soft diet Apppeitie improving Family at BS Up in chair Gets tired easily On PRB Objective Vital Signs Vital Signs Date Time Temp Pulse Resp B/P Pulse Ox O2 Delivery O2 Flow Rate FiO2 12/15/16 18:00 71 12/15/16 16:00 71 12/15/16 16:00 98.6 71 20 126/60 96 12/15/16 14:00 76 12/15/16 12:00 79 12/15/16 12:00 98.4 79 22 159/70 92 12/15/16 11:00 96 Partial Non-Rebreather 12/15/16 10:00 57 12/15/16 08:38 93 Partial Rebreather 10.00 12/15/16 08:00 97.6 71 24 161/74 94 12/15/16 08:00 71 12/15/16 07:00 Non-Rebreather 12.00 85 12/15/16 06:00 75 12/15/16 04:00 98.1 63 21 137/65 94 12/15/16 04:00 63 12/15/16 02:00 63 12/15/16 00:00 61 12/15/16 00:00 98.1 61 30 141/66 91 12/14/16 22:00 56 12/14/16 20:00 98.1 63 17 114/56 95 12/14/16 20:00 63 I/O 12/14/16 12/14/16 12/14/16 12/15/16 12/15/16 12/15/16 07:00 15:00 23:00 07:00 15:00 23:00 Intake Total 850 ml 444 ml 500 ml 100 ml 720 ml Output Total 2 ml 1800 ml 590 ml 600 ml Balance 848 ml -1356 ml -90 ml 100 ml 120 ml Intake Oral 850 ml 444 ml 500 ml 100 ml 720 ml IV Total 0 ml Output Urine Total 2 ml 1800 ml 590 ml 600 ml Stool Total 0 ml # Voids 4 2 3 # Bowel Movements 0 0 1 1 0 Objective Remarks GENERAL: MBMN Wf, on vent, sedated SKIN: Warm and dry. HEAD: Normocephalic. EYES: No scleral icterus. No injection or drainage. NECK: Supple, trachea midline. No JVD or lymphadenopathy. CARDIOVASCULAR: Regular rate and rhythm without murmurs, gallops, or rubs. RESPIRATORY: Breath sounds equal bilaterally. No accessory muscle use. GASTROINTESTINAL: Abdomen soft, non-tender, nondistended. MUSCULOSKELETAL: No cyanosis, or edema. BACK: Nontender without obvious deformity. No CVA tenderness. A/P Assessment and Plan VDRF, s/p extubation Severe COPD Pneumonia AF CHF Pleural effusion PLAN: Aerosol nebs Cont Abx Xarelto 20 mg daily Diurease Will need trilogy for home use 02 with PRB, keep sat 88-92% CPAP prn Arvind Cummings MD Dec 15, 2016 19:37
[2016-12-15] MEDS: POLYETHYLENE GLYCOL 17 GM PKG PO SCH (20:34)
[2016-12-16] VITALS (20 sets, daily range): BP systolic 130–160; BP diastolic 63–100; PULSE 51–167; RESP 12–30; TEMP 98–98.6; O2SAT 81–98
[2016-12-16] MEDS: RESP: ALBUTEROL 2.5 MG/IPRATROPIUM 0.5 MG NEB (SCH) NEB ×7 (00:25→23:21)
[2016-12-16] MEDS: CHLORHEXIDINE GLUCONATE 2 % 1 PACK (2 CLOTHS) TOP SCH (04:00)
[2016-12-16] MEDS: methylPREDNISolone SOD SUCC 40 MG/1 ML VIAL IV SCH ×3 (05:05→20:34)
[2016-12-16] MEDS: LEVOTHYROXINE SODIUM 25 MCG TAB PO SCH (05:05)
[2016-12-16] MEDS: METOCLOPRAMIDE HCL 10 MG/2 ML VIAL IV PUSH SCH ×3 (05:06→20:34)
[2016-12-16] MEDS: oxyCODONE/ACETAMINOPHEN 5 MG/325 MG TAB PO PRN (05:08)
[2016-12-16] MEDS: INSULIN NovoLIN REGULAR SUPPLEMENTAL SCALE SQ SCH ×4 (05:09→17:35)
[2016-12-16] MEDS: ALPRAZolam 0.25 MG TAB PO PRN ×2 (07:39→20:35)
[2016-12-16] MEDS: CHLORHEXIDINE 0.12% (ORAL KIT) 15 ML CUP MT SCH ×2 (08:00→20:00)
[2016-12-16] MEDS: RESP: BUDESONIDE 0.5 MG/2 ML NEB NEB SCH ×2 (08:32→19:47)
[2016-12-16] MEDS: CYCLOBENZAPRINE HCL 10 MG TAB PO SCH ×3 (09:00→17:35)
[2016-12-16] MEDS: FERROUS SULFATE 300 MG /5ML UDC PO SCH ×2 (09:00→20:35)
[2016-12-16] MEDS: DOCUSATE SODIUM 50 MG/SENNA 8.6 MG TAB PO SCH ×2 (09:00→20:35)
[2016-12-16] MEDS: FAMOTIDINE 20 MG TAB NG SCH (09:00)
[2016-12-16] MEDS: amLODIPine BESYLATE 5 MG TAB PO SCH (09:00)
[2016-12-16] MEDS: LACTOBACILLUS ACIDOPHILUS TAB PO SCH ×2 (09:00→20:35)
[2016-12-16] MEDS: GABAPENTIN 300 MG CAP PO SCH ×3 (09:00→17:35)
[2016-12-16] MEDS: METOPROLOL TARTRATE 25 MG TAB PO SCH ×2 (09:01→20:35)
[2016-12-16] MEDS: FUROSEMIDE 20 MG/2 ML VIAL IV PUSH SCH (09:01)
[2016-12-16] MEDS: RIVAROXABAN 20 MG TAB PO SCH (09:01)
[2016-12-16] MEDS: SODIUM CHLORIDE 0.9% FLUSH 10 ML FLUSH SCH ×2 (09:02→20:35)
[2016-12-16 09:48] LABS: AUTOMATED NEUTROPHIL # 11.6 TH/MM3 (1.8-7.7); BASOPHIL % 0.1 % (0.0-2.0); HEMATOCRIT 32.3 % (35.0-46.0); HEMO FLAGS DIFF FINAL; LYMPH % 7.5 % (9.0-44.0); MEAN CELL VOLUME 95.6 FL (80.0-100.0); MEAN CORPUSCULAR HEMOGLOBIN 30.8 PG (27.0-34.0); MEAN CORPUSCULAR HGB CONC 32.2 % (32.0-36.0); MONO % 5.2 % (0.0-8.0); NEUT % 87.2 % (16.0-70.0); PLATELET COUNT 240 TH/MM3 (150-450); RED BLOOD COUNT 3.38 MIL/MM3 (4.00-5.30); RED CELL DISTRIBUTION WIDTH 16.6 % (11.6-17.2); WHITE BLOOD COUNT 13.2 TH/MM3 (4.0-11.0)
--- NOTE | 2016-12-16 10:19 | HHI.PR ---
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 She has also altered mental status. Normally patient is awake with eyes open and answers questions right away. EMS reports pt received a muscle relaxer just prior to their arrival. She has received albuterol x 2 en route with however her CO2 Climbing on the BiPAP machine and she became more lethargic with less responsiveness. She was intubated in the emergency department. 12/03 Patient is sedated with Diprivan and intubated. Afebrile. On ACV with PEEP: 10, FIO2 45. 12/04: Afebrile. Arousable on propofol at 50 mcg/kg/m. PEEP is currently around 7. Tolerating tube feeds. Positive BM. 12/05: Afebrile. Currently all sedation currently off with only one working IV. PEEP 8. Tolerating tube feeding. Positive BM 3 yesterday. 12/06: Currently on PSV trial. Adequate urine output. Difficulty in obtaining peripheral blood draws. Positive BM. Tolerating tube feeding. Awake and alert and following commands. 12/07: On sedation vacation about initiates PSV trial. Lasted around 8 hours yesterday. Continue diuresis. Tolerating tube feeding. Positive BM. 12/08 Patient was extubated yesterday now on partial rebreather with good sats. Hypertensive. 12/09 No events overnight. Patient is on 50%VM. Afebrile. Hospitalist Notes: 12/12: Seen in his bedroom, in the presence of her Daughter Mrs. Cespedes no new issues 12/13; No new issues, continue management by senior computer specialist. 12/14: Stable continue high oxygen demand. 12/15: Seen in her bedroom in the presence of nurse Miss Goetz, on a non rebreather mask, continue present care. 12/16: Patient continue on Non Rebreather Mask, not improving on full and Optimized management, discussed with nurse in the room, the patient is full code. Objective Vital Signs Date Time Temp Pulse Resp B/P Pulse Ox O2 Delivery O2 Flow Rate FiO2 12/16/16 08:32 98 Partial Rebreather 13.00 12/16/16 04:00 98.0 63 12 147/71 97 12/16/16 00:00 98.4 60 26 152/70 90 12/15/16 20:15 94 Non-Rebreather 12.00 12/15/16 20:00 61 12/15/16 20:00 98.2 72 24 149/74 94 12/15/16 19:00 94 Partial Non-Rebreather 12/15/16 18:00 71 12/15/16 16:00 71 12/15/16 16:00 98.6 71 20 126/60 96 12/15/16 14:00 76 12/15/16 12:00 79 12/15/16 12:00 98.4 79 22 159/70 92 12/15/16 11:00 96 Partial Non-Rebreather I/O 12/15/16 12/15/16 12/15/16 12/16/16 12/16/16 12/16/16 07:00 15:00 23:00 07:00 15:00 23:00 Intake Total 100 ml 720 ml 480 ml 120 ml Output Total 600 ml Balance 100 ml 120 ml 480 ml 120 ml Intake Oral 100 ml 720 ml 480 ml 120 ml IV Total 0 ml 0 ml 0 ml Output Urine Total 600 ml # Voids 3 3 2 # Bowel Movements 1 0 0 0 Result Diagram: 12/16/16 0916 Imaging Last Impressions Chest X-Ray 12/15/16 0800 Signed Impressions: Service Date/Time: Thursday, December 15, 2016 08:00 - CONCLUSION: Stable chest x-ray with bibasilar opacity representing pleural effusions with associated volume loss and/or airspace consolidation. Jasper Head MD Renal Ultrasound 12/04/16 0000 Signed Impressions: Service Date/Time: November 17:52 - CONCLUSION: 1. Numerous cysts and chronic parenchymal disease of both kidneys. No evidence of obstructive uropathy or other acute abnormality. 2. Fuentes catheter present. Urinary bladder grossly unremarkable. 3. Cholelithiasis incidentally noted. Jasper Springer MD Lower Extremity Ultrasound 12/03/16 0000 Signed Impressions: Service Date/Time: Saturday, December 03, 2016 09:17 - CONCLUSION: Nonocclusive deep venous thrombus within the posterior tibial veins bilaterally. Galen Pierre MD Liver Ultrasound 12/02/16 0000 Signed Impressions: Service Date/Time: Friday, December 02, 2016 17:19 - CONCLUSION: 1. Common bile duct upper limits of normal caliber for a patient this age. No duct stone. 2. Several stones in the gallbladder measuring up to 14 mm in size. No evidence of acute cholecystitis Jasper Springer MD Chest CT 12/02/16 0000 Signed Impressions: Service Date/Time: Friday, December 02, 2016 10:46 - CONCLUSION: 1. Small bilateral pleural effusions with adjacent alveolar consolidations (right slightly worse than left) consistent with atelectasis and/or pneumonia. Clinical correlation is recommended. 2. Patchiness within the right upper lobe consistent with possible pneumonia. Clinical correlation is recommended. 3. Cardiomegaly, coronary artery calcifications and mitral annulus calcifications. 4. 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 5. Cholelithiasis. 6. Multiple simple and complex renal cysts bilaterally. 7. Degenerative changes and scoliosis of the thoracolumbar spine. 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 K. Ezequiel Anthony MD Procedures Endotracheal intubation and extubation. Other Results Laboratory Tests Test 12/16/16 09:16 White Blood Count 13.2 TH/MM3 Red Blood Count 3.38 MIL/MM3 Hemoglobin 10.4 GM/DL Hematocrit 32.3 % Mean Corpuscular Volume 95.6 FL Mean Corpuscular Hemoglobin 30.8 PG Mean Corpuscular Hemoglobin 32.2 % Concent Red Cell Distribution Width 16.6 % Platelet Count 240 TH/MM3 Mean Platelet Volume 9.0 FL Neutrophils (%) (Auto) 87.2 % Lymphocytes (%) (Auto) 7.5 % Monocytes (%) (Auto) 5.2 % Eosinophils (%) (Auto) 0.0 % Basophils (%) (Auto) 0.1 % Neutrophils # (Auto) 11.6 TH/MM3 Lymphocytes # (Auto) 1.0 TH/MM3 Monocytes # (Auto) 0.7 TH/MM3 Eosinophils # (Auto) 0.0 TH/MM3 Basophils # (Auto) 0.0 TH/MM3 CBC Comment DIFF FINAL Differential Comment Objective Remarks GENERAL: Obese patient. no acute distress. SKIN: Warm and dry. HEAD: Normocephalic. EYES: No scleral icterus. No injection or drainage. NECK: Supple, trachea midline. No JVD or lymphadenopathy. CARDIOVASCULAR: Regular rate and rhythm without murmurs, gallops, or rubs. RESPIRATORY: Severe Decreased breath sounds, coarse breathing sounds. GASTROINTESTINAL: Abdomen soft, non-tender, nondistended. MUSCULOSKELETAL: No cyanosis, or edema. BACK: Nontender without obvious deformity. No CVA tenderness. Medications and IVs Current Medications Medications (Trade) Dose Ordered Sig/Lili Route Start Time Stop Time Status Last Admin (NS Flush) 2 ml UNSCH PRN .XX 12/02/16 01:00 (NS Flush) 2 ml BID .XX 12/02/16 09:00 12/16/16 09:02 (Tylenol) 650 mg Q6H PRN PO 12/02/16 01:00 12/15/16 08:38 (Zofran Inj) 4 mg Q6H PRN IV 12/02/16 01:00 12/14/16 13:24 (Reglan Inj) 10 mg Q6H PRN IV 12/02/16 01:00 (Compazine Supp) 25 mg Q12H PRN RECTAL 12/02/16 01:00 Miscellaneous Information 1 Q361D XX 12/02/16 01:00 12/02/16 04:45 (Chlorhexidine 2% Cloth) Taper DAILY@04 TOP 12/02/16 04:00 11/28/17 03:59 12/15/16 04:00 (Chlorhexidine 2% Cloth) 3 pack UNSCH PRN TOP 12/02/16 01:00 (Lynn-Colace) 1 tab BID PO 12/02/16 09:00 12/16/16 09:00 (Milk Of Magnesia Liq) 30 ml Q12H PRN PO 12/02/16 01:00 (Senokot) 17.2 mg Q12H PRN PO 12/02/16 01:00 (Dulcolax Supp) 10 mg DAILY PRN RECTAL 12/02/16 01:00 (Lactulose Liq) 30 ml DAILY PRN PO 12/02/16 01:00 (Xanax) 0.25 mg Q8H PRN PO 12/02/16 01:00 12/16/16 07:39 (Norvasc) 5 mg DAILY PO 12/02/16 09:00 12/16/16 09:00 (Flexeril) 5 mg TID PO 12/02/16 09:00 12/16/16 09:00 (Breo Ellipta 100-25 Inh) 1 puff HS INH 12/02/16 21:00 Hold (Neurontin) 600 mg TID PO 12/02/16 09:00 12/16/16 09:00 (Milk Of Magnesia Liq) 30 ml DAILY PRN PO 12/02/16 01:00 (Miralax) 17 gm HS PO 12/02/16 21:00 12/15/16 20:34 Lactobacillus Acidophilus 1 tab 1 tab BID PO 12/02/16 09:00 12/16/16 09:00 Potassium Chloride 100 ml @ 50 mls/hr Q2H PRN IV 12/02/16 10:30 (KCl 20 Meq Premix Inj) 100 ml @ 50 mls/hr Q2H PRN IV 12/02/16 10:30 Potassium Bicarb/ Potassium Chloride 50 meq 50 meq UNSCH PRN PO 12/02/16 10:30 Potassium Chloride 100 ml @ 25 mls/hr UNSCH PRN IV 12/02/16 10:30 Potassium Chloride 100 ml @ 50 mls/hr Q2H PRN IV 12/02/16 10:30 (Magnesium Sulfate Inj/NS Inj) 100 ml @ 50 mls/hr UNSCH PRN IV 12/02/16 10:30 Magnesium Oxide 800 mg 800 mg UNSCH PRN PO 12/02/16 10:30 (Magnesium Sulfate Inj/NS Inj) 100 ml @ 50 mls/hr UNSCH PRN IV 12/02/16 10:30 Potassium Phosphate 2000 mg 2,000 mg Q4H PRN PO 12/02/16 10:30 (Sodium Phosphate Inj/NS 250 ml Inj) 250 ml @ 42 mls/hr UNSCH PRN IV 12/02/16 10:30 12/02/16 12:44 Potassium Phosphate 2000 mg 2,000 mg UNSCH PRN PO/TUBE 12/02/16 10:30 (Potassium Phosphate Inj/NS 250 ml Inj) 260 ml @ 42 mls/hr UNSCH PRN IV 12/02/16 10:30 (SoluMEDROL INJ) 40 mg Q8HR IV 12/02/16 22:00 12/16/16 05:05 (D50w (Vial) Inj) 50 ml UNSCH PRN IV 12/03/16 08:30 (Glucagon Inj) 1 mg UNSCH PRN OTHER 12/03/16 08:30 (NovoLIN R SUPPLEMENTAL SCALE) 1 Q6HR SQ 12/03/16 08:30 12/15/16 17:37 (Xarelto) 20 mg DAILY PO 12/03/16 13:00 12/16/16 09:01 (Peridex 0.12% Liq) 15 ml BID@08,20 MT 12/04/16 20:00 12/14/16 20:00 (Pepcid) 20 mg DAILY NG 12/04/16 09:00 12/16/16 09:00 (Ferrous Sulfate Liq) 300 mg BID PO 12/04/16 21:00 12/15/16 20:34 (Lasix Inj) 20 mg DAILY IV PUSH 12/04/16 12:00 12/16/16 09:01 (Synthroid) 25 mcg DAILY@0600 PO 12/06/16 06:00 12/16/16 05:05 (Reglan Inj) 5 mg Q8HR IV PUSH 12/06/16 14:00 12/16/16 05:06 (Apresoline Inj) 20 mg Q4H PRN IV PUSH 12/07/16 23:30 12/10/16 02:05 (Vasotec Inj) 2.5 mg Q6H PRN IV PUSH 12/07/16 23:30 (Percocet 5-325 Mg) 1 tab Q6H PRN PO 12/08/16 14:00 12/16/16 05:08 (Lopressor) 50 mg Q12HR PO 12/09/16 21:00 12/16/16 09:01 (Pill Splitter) 1 ea UNSCH PRN OTHER 12/10/16 10:30 A/P Assessment and Plan 1. Fibromyalgia/History of right posterior frontal lobe CVA/chronic benzodiazepine use/chronic opiate use On Xanax 0.25 mg every [address] head on admission revealed old cephalization of the right posterior frontal lobe. Neurontin 600 mill grams by mouth 3 times a day/home medication 2. Acute Hypoxemic respiratory failure Extubated 12/07/16, history of COPD/CAP Continue Oxygen as needed to maintain Oxygen saturation over 92% Pulmicort 0.5/2 one inhalation twice a day, Bronchodilator, mucolytic, Solu -Medrol 40 mg every [address] chest revealed bilateral lower lobe pneumonia/right upper lobe pneumonia , was on antibiotics. senior computer specialist is following- Dr. Cummings, at this time on non rebreather mask. not improving on full management, asked for Palliative Care to re evaluate patient and Family wishes for further management. 3. 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 Echocardiogram 10/06 revealed EF 60%. Left atrial dilatation. No regional wall motion abnormality. Echocardiogram 12/06 revealed EF 65-70%. Trace TR. Normal pulmonary pressures. Noted CT chest revealed 4.5 fusiform dilatation of the aorta at the retrocardiac with cardiomegaly 4. Cholelithiasis/Hypoalbuminemia on Pepcid for GI prophylaxis, bowel regimen. 5. CAP on Aztreonam, Azithromycin, Flagyl since 12/02, cultures negative, afebrile, Strep pneumonia and Legionella antigen negative. 12/02 - sputum - negative 12/01 - blood cultures 2 - no growth 12/01 - urine - negative 6. Normocytic Anemia/chronic Xarelto 20 mg daily, Bilateral posterior tibial nonocclusive DVT, continue Iron sulfate Iron sulfate 325 mg 3 times a day. 7. 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 Galileo Gomez MD Dec 16, 2016 10:19
[2016-12-16 10:49] LABS: ANION GAP 0 MEQ/L (5-15); BICARBONATE GREATER THAN 45.0 MEQ/L (21.0-32.0); BLOOD UREA NITROGEN 25 MG/DL (7-18); CHLORIDE 91 MEQ/L (98-107); GLOMERULAR FILTRATION RATE 82 ML/MIN (>89); MAGNESIUM 2.5 MG/DL (1.5-2.5); POTASSIUM 4.2 MEQ/L (3.5-5.1); SODIUM (NA) 136 MEQ/L (136-145)
[2016-12-16 16:12] LABS: BLOOD GAS BASE EXCESS 21.2 mmol/L (-2-2); BLOOD GAS CARBOXYHEMOGLOBIN 1.8 % (0-4); BLOOD GAS HCO3 48 mmol/L (22-26); BLOOD GAS METHEMOGLOBIN 1.2 % (0-2); BLOOD GAS O2 HGB SATURATION 87 % (90-100); BLOOD GAS OXYGEN CONTENT 12.3 Vol % (12.0-20.0); BLOOD GAS PCO2 81 mmHg (38-42); BLOOD GAS PO2 56 mmHg (61-120); TEMP CORR TO 98.6
[2016-12-16 16:15] LABS: CRITICAL VALUE YES; DRAW SITE RT RADIAL; LITER FLOW 13 L/M; NUMBER OF ARTERIAL PUNCTURES 1; STAT NO; ULNAR PULSE PRESENT
--- NOTE | 2016-12-16 17:52 | HHI.PR ---
Subjective Remarks 76 YOWf with Severe COPD, known to me from office has multiple admissions in the hosp Extubated 12/07 Appetite poor On Soft diet Apppeitie improving Up in chair Gets tired easily ABG showes compensated resp acidosis Objective Vital Signs Vital Signs Date Time Temp Pulse Resp B/P Pulse Ox O2 Delivery O2 Flow Rate FiO2 12/16/16 17:00 90 100 12/16/16 16:22 88 Partial Rebreather 13.00 12/16/16 08:32 98 Partial Rebreather 13.00 12/16/16 04:00 98.0 63 12 147/71 97 12/16/16 00:00 98.4 60 26 152/70 90 12/15/16 20:15 94 Non-Rebreather 12.00 12/15/16 20:00 61 12/15/16 20:00 98.2 72 24 149/74 94 12/15/16 19:00 94 Partial Non-Rebreather 12/15/16 18:00 71 I/O 12/15/16 12/15/16 12/15/16 12/16/16 12/16/16 12/16/16 07:00 15:00 23:00 07:00 15:00 23:00 Intake Total 100 ml 720 ml 480 ml 120 ml Output Total 600 ml Balance 100 ml 120 ml 480 ml 120 ml Intake Oral 100 ml 720 ml 480 ml 120 ml IV Total 0 ml 0 ml 0 ml Output Urine Total 600 ml # Voids 3 3 2 # Bowel Movements 1 0 0 0 Result Diagram: 12/16/1616 12/16/1616 Objective Remarks GENERAL: MBMN Wf, on vent, sedated SKIN: Warm and dry. HEAD: Normocephalic. EYES: No scleral icterus. No injection or drainage. NECK: Supple, trachea midline. No JVD or lymphadenopathy. CARDIOVASCULAR: Regular rate and rhythm without murmurs, gallops, or rubs. RESPIRATORY: Breath sounds equal bilaterally. No accessory muscle use. GASTROINTESTINAL: Abdomen soft, non-tender, nondistended. MUSCULOSKELETAL: No cyanosis, or edema. BACK: Nontender without obvious deformity. No CVA tenderness. A/P Assessment and Plan VDRF, s/p extubation Severe COPD Pneumonia AF CHF Pleural effusion PLAN: Aerosol nebs Cont Abx Xarelto 20 mg daily Diurease Will need trilogy for home use 02 with PRB, keep sat 88-92% CPAP10/5 at night and PRN Arvind Cummings MD Dec 16, 2016 17:52
[2016-12-16] MEDS: POLYETHYLENE GLYCOL 17 GM PKG PO SCH (20:34)
[2016-12-17] VITALS (13 sets, daily range): BP systolic 139–163; BP diastolic 70–90; PULSE 57–76; RESP 16–27; TEMP 98.1–98.9; O2SAT 92–95
[2016-12-17] MEDS: RESP: ALBUTEROL 2.5 MG/IPRATROPIUM 0.5 MG NEB (SCH) NEB ×2 (03:55→07:18)
[2016-12-17] MEDS: CHLORHEXIDINE GLUCONATE 2 % 1 PACK (2 CLOTHS) TOP SCH (04:00)
[2016-12-17] MEDS: METOCLOPRAMIDE HCL 10 MG/2 ML VIAL IV PUSH SCH ×3 (05:20→20:10)
[2016-12-17] MEDS: LEVOTHYROXINE SODIUM 25 MCG TAB PO SCH (05:20)
[2016-12-17] MEDS: methylPREDNISolone SOD SUCC 40 MG/1 ML VIAL IV SCH ×3 (05:21→20:10)
[2016-12-17] MEDS: INSULIN NovoLIN REGULAR SUPPLEMENTAL SCALE SQ SCH ×5 (06:00→23:49)
[2016-12-17] MEDS: RESP: BUDESONIDE 0.5 MG/2 ML NEB NEB SCH ×2 (07:17→20:17)
[2016-12-17] MEDS: CHLORHEXIDINE 0.12% (ORAL KIT) 15 ML CUP MT SCH ×2 (08:00→20:00)
[2016-12-17] MEDS: amLODIPine BESYLATE 5 MG TAB PO SCH (08:59)
[2016-12-17] MEDS: RIVAROXABAN 20 MG TAB PO SCH (08:59)
[2016-12-17] MEDS: FAMOTIDINE 20 MG TAB NG SCH (08:59)
[2016-12-17] MEDS: METOPROLOL TARTRATE 25 MG TAB PO SCH ×2 (08:59→20:09)
[2016-12-17] MEDS: DOCUSATE SODIUM 50 MG/SENNA 8.6 MG TAB PO SCH ×2 (08:59→20:09)
[2016-12-17] MEDS: GABAPENTIN 300 MG CAP PO SCH ×3 (08:59→18:44)
[2016-12-17] MEDS: LACTOBACILLUS ACIDOPHILUS TAB PO SCH ×2 (08:59→20:09)
[2016-12-17] MEDS: CYCLOBENZAPRINE HCL 10 MG TAB PO SCH ×3 (09:00→18:44)
[2016-12-17] MEDS: FUROSEMIDE 20 MG TAB PO SCH (09:00)
[2016-12-17] MEDS: FERROUS SULFATE 300 MG /5ML UDC PO SCH ×2 (09:00→20:09)
[2016-12-17] MEDS: SODIUM CHLORIDE 0.9% FLUSH 10 ML FLUSH SCH ×2 (09:01→20:09)
--- NOTE | 2016-12-17 10:49 | PD.CONS ---
Consult Service Palliative Care . Consult Requested By Dr. Shipman . Primary Care Physician Fernanda Fox MD . Reason for Consultation a. To assist with evaluation and management of symptoms including: SOB, anxiety, decreased appetite b. To assist medical decision maker(s) with: better understanding of current medical conditions; weighing benefits/burdens of medical treatment options; making medical treatment decisions. . HPI History of Present Illness Ms. Diaz is a 76-year-old female who presented from her home to [facility] ED via EMS on 12/01/2016 for evaluation of AMS and shortness of breath. The patient's family reported the patient had experienced a gradual decline in mentation over several days. At baseline, the patient is awake and able to answer questions appropriately. Upon EMS arrival, patient was oriented to person and place only with a GCS of 13. The family indicated patient had received a muscle relaxant just prior to EMS arrival. Patient's O2 saturations were in the mid 80s on home oxygen. Patient received albuterol treatments 2 and 125 mg of Solu-Medrol en route to the hospital. Patient's past medical history is significant for HTN, previous PE and DVT, CHF , COPD-oxygen dependent, history of goiter s/p radiation therapy with subsequent hypothyroidism, dyslipidemia, fibromyalgia, arthritis, cholelithiasis , diverticulosis, RLS, sciatica and iron deficiency anemia. She has been hospitalized 4 to 5 times since 09/10/2016 with COPD exacerbations and respiratory failure requiring intubation. Additional diagnostic findings while in the ED include: * Vital signs: Pulse 87, respirations 30, BP 85/46, oxygen saturation 80% on 6 L via nasal cannula, core temperature 97.7 * WBC: 13.5, hemoglobin 10.4, hematocrit 33.2, platelets 234, neutrophils 87.3% * Sodium: 143, potassium 4.5, chloride 102, carbon dioxide 35.4, random glucose 171, calcium 8.4, magnesium 2.4 * BUN: 35, creatinine 1.06, GFR 50 * Total bilirubin: 0.4, direct bilirubin 0.1, indirect bilirubin 0.3, AST 74, ALT 75, alkaline phosphatase 30 * Troponin: 0.02 * Total protein: 5.8, albumin 2.6 * PT: 10.0, INR 0.9, APTT 23.3 * Urinalysisnormal * Urine culturenegative * Blood culturenegative * Chest x-ray: Bibasilar consolidation and effusions, right greater than left. Mild cardiomegaly unchanged. * CT head: Showed no evidence for intracranial hemorrhage, mass effect, mass lesions, edema or extra axial fluid collections. There was an old infarction on the right is seen, no acute process. Ms. Diaz was started on broad-spectrum IV antibiotics while in the ED. The patient became increasingly lethargic and less responsive. She was emergently intubated and placed on 100% FiO2 with a PEEP of 5. She was admitted to critical care services for medical management of acute respiratory failure with hypoxia and hypercapnia. Pulmonology, Dr. Munoz was consulted. = Follow-up chest x-ray showed evidence of pulmonary edema and pleural effusions. 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 = A liver ultrasound showed a normal caliber common bile tach with no stone; several stones were noted in the gallbladder measuring up to 14 mm in size; there was no evidence of cholecystitis. The following day, the patient remained sedated with Diprivan and and intubated on a CD with PEEP: 10, FiO2 45%. An ultrasound of the lower extremity on revealed bilateral nonocclusive DVT within the posterior tibial veins. Renal ultrasound was ordered on 12/04/16 due to the patient's increased BUN/ creatinine. Numerous cysts and chronic parenchymal disease of both kidneys was noted. There was no evidence of obstructive uropathy or other acute abnormalities. Cholelithiasis incidentally noted. Recent echocardiogram in 09/2016 revealed normal systolic functioning with EF of 60% - 65%, left atrial dilatation, no regional wall motion abnormalities. A follow-up echocardiogram on 12/05/2016 revealed EF 65%70%, trace tricuspid regurgitation, normal pulmonary pressures. Ms. Diaz was extubated on 12/07/2016, tolerating tube feedings. Follow-up chest x-ray on 12/08/2016 showed mild bibasilar consolidation and small effusions not significantly changed. The patient was on a nonrebreather with oxygen saturations in the 90s. Patient was treated with antibiotics (Aztreonam, Azithromycin, Flagyl) x 7 days , discontinued 12/09/2016. Afebrile, all cultures negative. = 12/02 - sputum - negative = 12/01 - blood cultures 2 - no growth = 12/01 - urine - negative = Negative influenza Patient continues to require high concentrations of oxygen, on 12 L via partial rebreather, desires ongoing aggressive care. Long-term prognosis is poor. Palliative Care was consulted to assist with symptom management and to discuss with the patient and family the benefits and burdens of her current illnesses and the options regarding future care. . Function/Cognitive Trajectory Patient's past medical history is significant for HTN, previous PE and DVT, CHF , COPD-oxygen dependent, history of goiter s/p radiation therapy with subsequent hypothyroidism, dyslipidemia, fibromyalgia, arthritis, cholelithiasis , diverticulosis, RLS, sciatica and iron deficiency anemia. She has been oxygen dependent for many year but requirements recently increased to 4 L via nasal cannula. Reporting increased weakness, poor nutritional intake, fatigue. She has been hospitalized 4 to 5 times since 09/10/2016 with COPD exacerbations and respiratory failure requiring intubation. . Review of Systems ROS Limitations: Poor Historian Constitutional: COMPLAINS OF: Fatigue (fatigues easily), Weight loss (patient reports a 10 pound weight loss in the past 6 months.), Change in appetite (poor appetite), Generalized weakness Endocrine: DENIES: Polydipsia, Polyuria, Polyphagia Eyes: DENIES: Double Vision Ears, nose, mouth, throat: DENIES: Hearing loss, Oral lesions, Throat pain Respiratory: COMPLAINS OF: Cough, Wheezing, Sputum production, Shortness of breath, DENIES: Hemoptysis Cardiovascular: COMPLAINS OF: Dyspnea on Exertion, Lower Extremity Edema ( intermittent edema, currently resolved) Gastrointestinal: COMPLAINS OF: Difficulty Swallowing (soft diet), DENIES: Constipation, Diarrhea, Nausea, Vomiting Musculoskeletal: COMPLAINS OF: Back pain Integumentary: COMPLAINS OF: Excessive dryness Hematologic/Lymphatics: COMPLAINS OF: Bruising Neurologic: COMPLAINS OF: Poor Balance Psychiatric: COMPLAINS OF: Anxiety, Confusion Past Family Social History Coded Allergies: Azithromycin (Verified Allergy, Severe, STOMACH CRAMPS, 4/21/17) Penicillin (Verified Allergy, Severe, 10/10/16) Past Medical History History of goiter s/p radiation therapy with subsequent hypothyroidism Prior respiratory failure with intubation Hypertension History of PE COPD-oxygen dependent CHF Polycystic kidney disease DVT -03/2013 Dyslipidemia Fibromyalgia Arthritis Cholelithiasis Diverticulosis RLS Sciatica Iron deficiency anemia . Past Surgical History Tonsillectomy Adenoidectomy Cataract surgery BTL . Reported Medications Milk of Magnesia Liq (Magnesium Hydroxide) 400 Mg/5 Ml Susp 30 Ml PO DAILY PRN Albuterol Neb (Albuterol Sulfate) 2.5 Mg/3 Ml Neb 2.5 Mg NEB Q2HR NEB PRN While awake Ferrous Sulfate DR (Ferrous Sulfate) 325 Mg Tabdr 325 Mg PO TIDAC Eq Mucus ER (Guaifenesin) 600 Mg Tab 600 Mg PO Q12HR Diff-Stat (Probiotic Product) 1 Cap Cap 1 Cap PO BID Miralax Powder (Polyethylene Glycol 3350 Powder) 1 Pow Pow 17 Gm PO HS Breo Ellipta Inh (Fluticasone/Vilanterol) 100-25 Mcg/Act Inh 1 Puff INH HS Use daily at the same time. Xopenex Neb (Levalbuterol HCl) 1.25 Mg/3 Ml Neb 1.25 Mg NEB Q2HR NEB PRN Xanax (Alprazolam) 0.25 Mg Tab 0.25 Mg PO Q8H PRN Spironolactone 25 Mg Tab 12.5 Mg PO DAILY Flexeril (Cyclobenzaprine HCl) 5 Mg Tab 5 Mg PO TID Gabapentin 600 Mg Tab 600 Mg PO TID . Current Medications Medications (Trade) Dose Ordered Sig/Lili Route Start Time Stop Time Status Last Admin (NS Flush) 2 ml UNSCH PRN .XX 12/02/16 01:00 12/16/16 15:50 (NS Flush) 2 ml BID .XX 12/02/16 09:00 12/17/16 09:01 (Tylenol) 650 mg Q6H PRN PO 12/02/16 01:00 12/15/16 08:38 (Zofran Inj) 4 mg Q6H PRN IV 12/02/16 01:00 12/14/16 13:24 (Reglan Inj) 10 mg Q6H PRN IV 12/02/16 01:00 (Compazine Supp) 25 mg Q12H PRN RECTAL 12/02/16 01:00 Miscellaneous Information 1 Q361D XX 12/02/16 01:00 12/02/16 04:45 (Chlorhexidine 2% Cloth) Taper DAILY@04 TOP 12/02/16 04:00 11/28/17 03:59 12/15/16 04:00 (Chlorhexidine 2% Cloth) 3 pack UNSCH PRN TOP 12/02/16 01:00 (Lynn-Colace) 1 tab BID PO 12/02/16 09:00 12/17/16 08:59 (Milk Of Magnesia Liq) 30 ml Q12H PRN PO 12/02/16 01:00 (Senokot) 17.2 mg Q12H PRN PO 12/02/16 01:00 (Dulcolax Supp) 10 mg DAILY PRN RECTAL 12/02/16 01:00 (Lactulose Liq) 30 ml DAILY PRN PO 12/02/16 01:00 (Xanax) 0.25 mg Q8H PRN PO 12/02/16 01:00 12/16/16 20:35 (Norvasc) 5 mg DAILY PO 12/02/16 09:00 12/17/16 08:59 (Flexeril) 5 mg TID PO 12/02/16 09:00 12/17/16 09:00 (Breo Ellipta 100-25 Inh) 1 puff HS INH 12/02/16 21:00 Hold (Neurontin) 600 mg TID PO 12/02/16 09:00 12/17/16 08:59 (Milk Of Magnesia Liq) 30 ml DAILY PRN PO 12/02/16 01:00 (Miralax) 17 gm HS PO 12/02/16 21:00 12/16/16 20:34 Lactobacillus Acidophilus 1 tab 1 tab BID PO 12/02/16 09:00 12/17/16 08:59 Potassium Chloride 100 ml @ 50 mls/hr Q2H PRN IV 12/02/16 10:30 (KCl 20 Meq Premix Inj) 100 ml @ 50 mls/hr Q2H PRN IV 12/02/16 10:30 Potassium Bicarb/ Potassium Chloride 50 meq 50 meq UNSCH PRN PO 12/02/16 10:30 Potassium Chloride 100 ml @ 25 mls/hr UNSCH PRN IV 12/02/16 10:30 Potassium Chloride 100 ml @ 50 mls/hr Q2H PRN IV 12/02/16 10:30 (Magnesium Sulfate Inj/NS Inj) 100 ml @ 50 mls/hr UNSCH PRN IV 12/02/16 10:30 Magnesium Oxide 800 mg 800 mg UNSCH PRN PO 12/02/16 10:30 (Magnesium Sulfate Inj/NS Inj) 100 ml @ 50 mls/hr UNSCH PRN IV 12/02/16 10:30 Potassium Phosphate 2000 mg 2,000 mg Q4H PRN PO 12/02/16 10:30 (Sodium Phosphate Inj/NS 250 ml Inj) 250 ml @ 42 mls/hr UNSCH PRN IV 12/02/16 10:30 12/02/16 12:44 Potassium Phosphate 2000 mg 2,000 mg UNSCH PRN PO/TUBE 12/02/16 10:30 (Potassium Phosphate Inj/NS 250 ml Inj) 260 ml @ 42 mls/hr UNSCH PRN IV 12/02/16 10:30 (SoluMEDROL INJ) 40 mg Q8HR IV 12/02/16 22:00 12/17/16 05:21 (D50w (Vial) Inj) 50 ml UNSCH PRN IV 12/03/16 08:30 (Glucagon Inj) 1 mg UNSCH PRN OTHER 12/03/16 08:30 (NovoLIN R SUPPLEMENTAL SCALE) 1 Q6HR SQ 12/03/16 08:30 12/15/16 17:37 (Xarelto) 20 mg DAILY PO 12/03/16 13:00 12/17/16 08:59 (Peridex 0.12% Liq) 15 ml BID@08,20 MT 12/04/16 20:00 12/14/16 20:00 (Pepcid) 20 mg DAILY NG 12/04/16 09:00 12/17/16 08:59 (Ferrous Sulfate Liq) 300 mg BID PO 12/04/16 21:00 12/17/16 09:00 (Synthroid) 25 mcg DAILY@0600 PO 12/06/16 06:00 12/17/16 05:20 (Reglan Inj) 5 mg Q8HR IV PUSH 12/06/16 14:00 12/17/16 05:20 (Apresoline Inj) 20 mg Q4H PRN IV PUSH 12/07/16 23:30 12/10/16 02:05 (Vasotec Inj) 2.5 mg Q6H PRN IV PUSH 12/07/16 23:30 (Percocet 5-325 Mg) 1 tab Q6H PRN PO 12/08/16 14:00 12/16/16 05:08 (Lopressor) 50 mg Q12HR PO 12/09/16 21:00 12/17/16 08:59 (Pill Splitter) 1 ea UNSCH PRN OTHER 12/10/16 10:30 (Lasix) 20 mg DAILY PO 12/17/16 09:00 12/17/16 09:00 . Family History Patient's mother from pancreatic cancer. Her father in an MVA when the patient was 4 years old. Patient's sister also suffers from COPD, heart disease and hypertension. . Substance Use Tobacco: [id number] history, quit in 2013 Alcohol: Patient reported were EtOH consumption, occasional wine. Prescription med abuse: None known Illicits: None known . Psychosocial History Patient is originally from [place], [place]. Her father in a MVA and when the patient was 4 years old. She has one sister (Madhavi) who lives in [place], [place]. The patient states they are very close. The patient was to her first for 10 years, and her second for approximately 44 years. She is . The patient had 8 children, but 2 are now . (6 living children: 4 daughters and 2 sons) She moved to [place] approximately 17 years ago and is living with her son (Ga). 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 . Spiritual/Cultural Factors Orthodox cherise . Health Care Surrogate: Copy in medical record Date completed: 12/17/2016 . Health Care Surrogate(s): Patient's son (Ga Diaz) is designated as the primary health care surrogate decision maker. The patient has designated her daughter (Mattie Diaz) as the alternate health care surrogate decision maker. . Documented care wishes: Healthcare surrogate form was completed today (12/17/2016). Document was faxed to HIM to be scanned into the patient's EMR; copies were also placed and the patient's chart and left at patient's bedside. . Today's verbally stated goals: Goals remain aggressive at this time. Patient is amenable to placement upon discharge but remains optimistic that she will be able to return home in the future. . Family/friends goals: No family or friends present. . Ethical and Legal Issues No known ethical or legal issues. . Physical Exam Vital Signs Date Time Temp Pulse Resp B/P Pulse Ox O2 Delivery O2 Flow Rate FiO2 12/17/16 07:19 92 Partial Rebreather 12.00 12/17/16 07:00 90 Partial Non-Rebreather 12/17/16 04:00 98.2 59 27 163/88 92 12/17/16 00:00 98.1 57 26 139/77 94 12/16/16 20:00 98.0 60 30 137/73 88 12/16/16 19:40 94 Partial Rebreather 15.00 12/16/16 19:00 Non-Rebreather 12/16/16 18:00 53 24 130/73 92 12/16/16 17:01 61 156/70 86 12/16/16 17:00 90 100 12/16/16 16:22 88 Partial Rebreather 13.00 12/16/16 16:00 98.3 55 24 148/67 81 12/16/16 15:00 Non-Rebreather 12/16/16 15:00 59 152/66 88 12/16/16 14:00 53 139/64 81 12/16/16 13:01 57 22 137/63 91 12/16/16 13:00 51 95 12/16/16 12:00 98.5 60 155/72 87 12/16/16 11:00 51 135/68 91 12/16/16 10:01 77 133/69 90 . 12/16/16 12/17/16 19:00 07:00 Intake Total 360 ml 600 ml Balance 360 ml 600 ml Intake Oral 360 ml 600 ml IV Total 0 ml # Voids 8 6 # Bowel Movements 0 1 . Exam CONSTITUTIONAL/GENERAL: This is a chronically ill appearing, elderly female patient in no apparent distress. TUBES/LINES/DRAINS: PIV 1 SKIN: Ashen color. Skin appears thin and fragile. No jaundice, rashes, or lesions. Skin temperature appropriate. Not diaphoretic. HEAD: Atraumatic. Normocephalic. EYES: PERRLA. No scleral icterus. No injection or drainage. Fundi not examined. ENT: Hearing grossly normal. Nose without bleeding or purulent drainage. NECK: Trachea midline. Supple, nontender. No palpable thyroid enlargement or nodularity. CARDIOVASCULAR: Regular rate and rhythm without murmurs, gallops, or rubs. No JVD. Peripheral pulses symmetric. RESPIRATORY/CHEST: Respirations mildly labored on partial nonrebreather. Breath sounds significantly diminished bilaterally. GASTROINTESTINAL: Abdomen soft, non-tender, nondistended. No guarding. Bowel sounds present. GENITOURINARY: Without palpable bladder distension. MUSCULOSKELETAL: Extremities without clubbing, cyanosis, or edema. LYMPHATICS: No palpable cervical or supraclavicular adenopathy. NEUROLOGICAL: Awake and alert. Follows commands. Moves all extremities. Able to make needs known. PSYCHIATRIC: No obvious anxiety/depression. no apparent hallucinations or other psychotic thought process. . Diagnostic Tests Laboratory Laboratory Tests Test 12/16/16 12/16/16 09:16 16:00 White Blood Count 13.2 TH/MM3 (4.0-11.0) Red Blood Count 3.38 MIL/MM3 (4.00-5.30) Hemoglobin 10.4 GM/DL (11.6-15.3) Hematocrit 32.3 % (35.0-46.0) Mean Corpuscular Volume 95.6 FL (80.0-100.0) Mean Corpuscular Hemoglobin 30.8 PG (27.0-34.0) Mean Corpuscular Hemoglobin 32.2 % Concent (32.0-36.0) Red Cell Distribution Width 16.6 % (11.6-17.2) Platelet Count 240 TH/MM3 (150-450) Mean Platelet Volume 9.0 FL (7.0-11.0) Neutrophils (%) (Auto) 87.2 % (16.0-70.0) Lymphocytes (%) (Auto) 7.5 % (9.0-44.0) Monocytes (%) (Auto) 5.2 % (0.0-8.0) Eosinophils (%) (Auto) 0.0 % (0.0-4.0) Basophils (%) (Auto) 0.1 % (0.0-2.0) Neutrophils # (Auto) 11.6 TH/MM3 (1.8-7.7) Lymphocytes # (Auto) 1.0 TH/MM3 (1.0-4.8) Monocytes # (Auto) 0.7 TH/MM3 (0-0.9) Eosinophils # (Auto) 0.0 TH/MM3 (0-0.4) Basophils # (Auto) 0.0 TH/MM3 (0-0.2) CBC Comment DIFF FINAL Differential Comment Sodium Level 136 MEQ/L (136-145) Potassium Level 4.2 MEQ/L (3.5-5.1) Chloride Level 91 MEQ/L (98-107) Carbon Dioxide Level GREATER THAN 45.0 MEQ/L (21.0-32.0) Anion Gap 0 MEQ/L (5-15) Blood Urea Nitrogen 25 MG/DL (7-18) Creatinine 0.69 MG/DL (0.50-1.00) Estimat Glomerular Filtration 82 ML/MIN (>89) Rate Random Glucose 139 MG/DL (74-106) Calcium Level 9.8 MG/DL (8.5-10.1) Magnesium Level 2.5 MG/DL (1.5-2.5) Blood Gas Puncture Site RT RADIAL Blood Gas Patient Temperature 98.6 Blood Gas HCO3 48 mmol/L (22-26) Blood Gas Base Excess 21.2 mmol/L (-2-2) Blood Gas Oxygen Saturation 87 % (90-100) Arterial Blood pH 7.39 (7.380-7.420) Arterial Blood Partial 81 mmHg (38-42) Pressure CO2 Arterial Blood Partial 56 mmHg Pressure O2 (61-120) Arterial Blood Oxygen Content 12.3 Vol % (12.0-20.0) Arterial Blood 1.8 % (0-4) Carboxyhemoglobin Arterial Blood Methemoglobin 1.2 % (0-2) Blood Gas Hemoglobin 10.0 G/DL (12.0-16.0) Oxygen Delivery Device Partial Rebreather Blood Gas Liter Flow 13 L/M . Result Diagram: 12/16/1616 12/16/16 0916 Imaging Last 72 hours Impressions Chest X-Ray 12/15/16 0800 Signed Impressions: Service Date/Time: Thursday, December 15, 2016 08:00 - CONCLUSION: Stable chest x-ray with bibasilar opacity representing pleural effusions with associated volume loss and/or airspace consolidation. Jasper Head MD . Procedures 12/01/2016: Intubation 12/07/2016: Extubation . Patient/Family Conference Present at Family Conference: Met with patient at bedside . Family Conference Location: Bedside Issues Discussed: * Palliative care role, purpose, approach * Additional medical, psychosocial, and spiritual history * Patients general health, functional status, and cognitive changes in the months leading up to the current hospitalization * Patient/family understanding of the current medical problems * Patient/family understanding of prognosis * Patients goals of care as best understood from advance directives and/or conversations and/or values * Current medical treatment options and benefits/burdens of those options * Likely scenarios comparing ongoing aggressive care with a transition to comfort measures only * Questions answered to the best of my ability * Palliative care contact information provided . Assessment and Plan Disease Oriented Problem List: (1) Acute respiratory failure with hypoxia (2) Chronic obstructive pulmonary disease with acute exacerbation Comment: Pulmicort 0.5mg neb inhalation q12 hours Solu-Medrol 40 mg IV every 8 hours Bronchodilators Pulmonology, Dr. Cummings, continues to follow. (3) Pneumonia Comment: CT chest revealed bilateral lower lobe pneumonia/right upper lobe pneumonia Aztreonam, Azithromycin, Flagyl from 12/02/16-12/09. (4) Pleural effusion (5) CHF (congestive heart failure) (6) DVT of lower extremity, bilateral Comment: Bilateral posterior tibial nonocclusive DVT On Xarelto 20mg PO daily (7) Anemia (8) Hypertension Comment: On Norvasc 5mg daily and Metoprolol 50mg PO BID (9) Hypoalbuminemia (10) Fibromyalgia (11) Cholelithiasis Symptom Scale: (1) Debility, unspecified (2) Decreased appetite (3) Anxiety (4) Shortness of breath Pertinent Non-Medical Issues Psychosocial: Patient is originally from [place], [place]. Her father in a MVA and when the patient was 4 years old. She has one sister (Madhavi) who lives in [place], [place]. The patient states they are very close. The patient was to her first for 10 years, and her second for approximately 44 years. She is . The patient had 8 children, but 2 are now . (6 living children: 4 daughters and 2 sons) She moved to [place] approximately 17 years ago and is living with her son (Ga). 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 Spiritual: Orthodox cherise Legal: Patient's son (Ga Diaz) is designated as the primary health care surrogate decision maker. The patient has designated her daughter (Mattie Diaz ) as the alternate health care surrogate decision maker. Ethical issues impacting care: No known ethical issues impacting care at this time. . Important Contacts Ga Diaz, son: [phone] Mattie Diaz, daughter: [phone] . Prognosis Patient is a 76-year-old female with multiple comorbid conditions. She has been hospitalized 4 to 5 times since 09/10/2016 with COPD exacerbations, CAP and respiratory failure requiring intubation. Patient has had an acute change in her disease trajectory over the past 6 months as evidenced by multiple hospitalizations, weight loss, progressively worsening dyspnea with increased oxygen requirements, increased weakness/fatigue. Poor manager long term care prognosis. . Code Status: Full Code Plan * FULL CODE * Decision-making: Patient shows insight and judgment related to her medical conditions, currently capacitated to participate in her own medical decision making. Healthcare surrogate form was completed today (12/17/2016).Patient's son (Ga Diaz) is designated as the primary health care surrogate decision maker. The patient has designated her daughter (Mattie Diaz) as the alternate health care surrogate decision maker. Document was faxed to HIM to be scanned into the patient's EMR; copies were also placed and the patient's chart and left at patient's bedside. * Goals: Goals remain aggressive at this time. Patient is amenable to placement upon discharge but remains optimistic that she will be able to return home in the future. * Discussed with case management (Silvia) who is working [facility] when patient is stable, possibly [facility]. * Palliative care had a lengthy discussion with the patient regarding her diagnosis of COPD with multiple co-morbid conditions and recent hospitalizations (5 hospitalizations since 09/10/2016). She reports a 6 month decline with worsening symptoms: shortness of breath, * Palliative care contact information provided to patient * Palliative care will continue to follow this patient throughout her hospitalization to establish trust, assist with symptom management and clarification of medical treatment goals. . . Thank you for the opportunity to participate in the care of Ms. Diaz. . Attestation To help prompt me to consider important information that might be impacting today's encounter and assessment, information from prior notes written by myself or my colleagues may have been "brought forward" into today's note. My signature on this note, however, is an attestation that I personally performed the exam, history, and/or decision-making noted today, and, unless otherwise indicated, the interactions with patient, family, and staff as well as the review of records all occurred today. I also attest that the listed assessment and stated plan reflect my best clinical judgment today based on the combination of historical information, prior notes, and today's exam/ interactions. When time spent is documented, it refers only to time spent today by the signer, or if indicated, combined time spent today by collaborating physician/nurse practitioner. . Mely Driver Dec 17, 2016 10:44
[2016-12-17] MEDS: RESP: ALBUTEROL 2.5 MG/IPRATROPIUM 0.5 MG NEB (PRN) NEB ×3 (11:56→20:17)
--- NOTE | 2016-12-17 14:19 | HHI.PR ---
Subjective Remarks Flag Signaler notes: 76-year-old female presents with a history of shortness of breath that started at home. She has also altered mental status. Normally patient is awake with eyes open and answers questions right away. EMS reports pt received a muscle relaxer just prior to their arrival. She has received albuterol x 2 en route with however her CO2 Climbing on the BiPAP machine and she became more lethargic with less responsiveness. She was intubated in the emergency department. 12/03 Patient is sedated with Diprivan and intubated. Afebrile. On ACV with PEEP: 10, FIO2 45. 12/04: Afebrile. Arousable on propofol at 50 mcg/kg/m. PEEP is currently around 7. Tolerating tube feeds. Positive BM. 12/05: Afebrile. Currently all sedation currently off with only one working IV. PEEP 8. Tolerating tube feeding. Positive BM 3 yesterday. 12/06: Currently on PSV trial. Adequate urine output. Difficulty in obtaining peripheral blood draws. Positive BM. Tolerating tube feeding. Awake and alert and following commands. 12/07: On sedation vacation about initiates PSV trial. Lasted around 8 hours yesterday. Continue diuresis. Tolerating tube feeding. Positive BM. 12/08 Patient was extubated yesterday now on partial rebreather with good sats. Hypertensive. 12/09 No events overnight. Patient is on 50%VM. Afebrile. Hospitalist Notes: 12/12: Seen in his bedroom, in the presence of her Daughter Mrs. Cespedes no new issues 12/13; No new issues, continue management by mission support specialist. 12/14: Stable continue high oxygen demand. 12/15: Seen in her bedroom in the presence of nurse Miss Goetz, on a non rebreather mask, continue present care. 12/16: Patient continue on Non Rebreather Mask, not improving on full and Optimized management, discussed with nurse in the room, the patient is full code. 12/17: Patient stable in her bedroom, discussed with nurse Miss Bernardo she and the patient wants the Fuentes cath back in, is been so difficult to be accurate with the Is and Os, seen and evaluated by appointment specialist the patient prefer to continue Aggressive management, full code. continue Non rebreather Mask. Objective Vital Signs Date Time Temp Pulse Resp B/P Pulse Ox O2 Delivery O2 Flow Rate FiO2 12/17/16 07:19 92 Partial Rebreather 12.00 12/17/16 07:00 90 Partial Non-Rebreather 12/17/16 04:00 98.2 59 27 163/88 92 12/17/16 00:00 98.1 57 26 139/77 94 12/16/16 20:00 98.0 60 30 137/73 88 12/16/16 19:40 94 Partial Rebreather 15.00 12/16/16 19:00 Non-Rebreather 12/16/16 18:00 53 24 130/73 92 12/16/16 17:01 61 156/70 86 12/16/16 17:00 90 100 12/16/16 16:22 88 Partial Rebreather 13.00 12/16/16 16:00 98.3 55 24 148/67 81 12/16/16 15:00 Non-Rebreather 12/16/16 15:00 59 152/66 88 I/O 12/16/16 12/16/16 12/16/16 12/17/16 12/17/16 12/17/16 07:00 15:00 23:00 07:00 15:00 23:00 Intake Total 120 ml 360 ml 480 ml 120 ml Balance 120 ml 360 ml 480 ml 120 ml Intake Oral 120 ml 360 ml 480 ml 120 ml IV Total 0 ml 0 ml 0 ml # Voids 2 8 4 2 # Bowel Movements 0 0 1 0 Result Diagram: 12/16/16 0916 12/16/16 0916 Imaging Last Impressions Chest X-Ray 12/15/16 0800 Signed Impressions: Service Date/Time: Thursday, December 15, 2016 08:00 - CONCLUSION: Stable chest x-ray with bibasilar opacity representing pleural effusions with associated volume loss and/or airspace consolidation. Jasper Head MD Renal Ultrasound 12/04/16 0000 Signed Impressions: Service Date/Time: November 17:52 - CONCLUSION: 1. Numerous cysts and chronic parenchymal disease of both kidneys. No evidence of obstructive uropathy or other acute abnormality. 2. Fuentes catheter present. Urinary bladder grossly unremarkable. 3. Cholelithiasis incidentally noted. Jasper Springer MD Lower Extremity Ultrasound 12/03/16 0000 Signed Impressions: Service Date/Time: Saturday, December 03, 2016 09:17 - CONCLUSION: Nonocclusive deep venous thrombus within the posterior tibial veins bilaterally. Galen Pierre MD Liver Ultrasound 12/02/16 0000 Signed Impressions: Service Date/Time: Friday, December 02, 2016 17:19 - CONCLUSION: 1. Common bile duct upper limits of normal caliber for a patient this age. No duct stone. 2. Several stones in the gallbladder measuring up to 14 mm in size. No evidence of acute cholecystitis Jasper Springer MD Chest CT 12/02/16 0000 Signed Impressions: Service Date/Time: Friday, December 02, 2016 10:46 - CONCLUSION: 1. Small bilateral pleural effusions with adjacent alveolar consolidations (right slightly worse than left) consistent with atelectasis and/or pneumonia. Clinical correlation is recommended. 2. Patchiness within the right upper lobe consistent with possible pneumonia. Clinical correlation is recommended. 3. Cardiomegaly, coronary artery calcifications and mitral annulus calcifications. 4. 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 5. Cholelithiasis. 6. Multiple simple and complex renal cysts bilaterally. 7. Degenerative changes and scoliosis of the thoracolumbar spine. 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 KJonathan Anthony MD Procedures Endotracheal intubation and extubation. Other Results Laboratory Tests Test 12/16/16 12/16/16 09:16 16:00 White Blood Count 13.2 TH/MM3 Red Blood Count 3.38 MIL/MM3 Hemoglobin 10.4 GM/DL Hematocrit 32.3 % Mean Corpuscular Volume 95.6 FL Mean Corpuscular Hemoglobin 30.8 PG Mean Corpuscular Hemoglobin 32.2 % Concent Red Cell Distribution Width 16.6 % Platelet Count 240 TH/MM3 Mean Platelet Volume 9.0 FL Neutrophils (%) (Auto) 87.2 % Lymphocytes (%) (Auto) 7.5 % Monocytes (%) (Auto) 5.2 % Eosinophils (%) (Auto) 0.0 % Basophils (%) (Auto) 0.1 % Neutrophils # (Auto) 11.6 TH/MM3 Lymphocytes # (Auto) 1.0 TH/MM3 Monocytes # (Auto) 0.7 TH/MM3 Eosinophils # (Auto) 0.0 TH/MM3 Basophils # (Auto) 0.0 TH/MM3 CBC Comment DIFF FINAL Differential Comment Sodium Level 136 MEQ/L Potassium Level 4.2 MEQ/L Chloride Level 91 MEQ/L Carbon Dioxide Level GREATER THAN 45.0 MEQ/L Anion Gap 0 MEQ/L Blood Urea Nitrogen 25 MG/DL Creatinine 0.69 MG/DL Estimat Glomerular Filtration 82 ML/MIN Rate Random Glucose 139 MG/DL Calcium Level 9.8 MG/DL Magnesium Level 2.5 MG/DL Blood Gas Puncture Site RT RADIAL Blood Gas Patient Temperature 98.6 Blood Gas HCO3 48 mmol/L Blood Gas Base Excess 21.2 mmol/L Blood Gas Oxygen Saturation 87 % Arterial Blood pH 7.39 Arterial Blood Partial 81 mmHg Pressure CO2 Arterial Blood Partial 56 mmHg Pressure O2 Arterial Blood Oxygen Content 12.3 Vol % Arterial Blood 1.8 % Carboxyhemoglobin Arterial Blood Methemoglobin 1.2 % Blood Gas Hemoglobin 10.0 G/DL Oxygen Delivery Device Partial Rebreather Blood Gas Liter Flow 13 L/M Objective Remarks GENERAL: Obese patient. no acute distress. SKIN: Warm and dry. HEAD: Normocephalic. EYES: No scleral icterus. No injection or drainage. NECK: Supple, trachea midline. No JVD or lymphadenopathy. CARDIOVASCULAR: Regular rate and rhythm without murmurs, gallops, or rubs. RESPIRATORY: Severe Decreased breath sounds, coarse breathing sounds. GASTROINTESTINAL: Abdomen soft, non-tender, nondistended. MUSCULOSKELETAL: No cyanosis, or edema. BACK: Nontender without obvious deformity. No CVA tenderness. Medications and IVs Current Medications Medications (Trade) Dose Ordered Sig/Lili Route Start Time Stop Time Status Last Admin (NS Flush) 2 ml UNSCH PRN .XX 12/02/16 01:00 12/16/16 15:50 (NS Flush) 2 ml BID .XX 12/02/16 09:00 12/17/16 09:01 (Tylenol) 650 mg Q6H PRN PO 12/02/16 01:00 12/15/16 08:38 (Zofran Inj) 4 mg Q6H PRN IV 12/02/16 01:00 12/14/16 13:24 (Reglan Inj) 10 mg Q6H PRN IV 12/02/16 01:00 (Compazine Supp) 25 mg Q12H PRN RECTAL 12/02/16 01:00 Miscellaneous Information 1 Q361D XX 12/02/16 01:00 12/02/16 04:45 (Chlorhexidine 2% Cloth) Taper DAILY@04 TOP 12/02/16 04:00 11/28/17 03:59 12/15/16 04:00 (Chlorhexidine 2% Cloth) 3 pack UNSCH PRN TOP 12/02/16 01:00 (Lynn-Colace) 1 tab BID PO 12/02/16 09:00 12/17/16 08:59 (Milk Of Magnesia Liq) 30 ml Q12H PRN PO 12/02/16 01:00 (Senokot) 17.2 mg Q12H PRN PO 12/02/16 01:00 (Dulcolax Supp) 10 mg DAILY PRN RECTAL 12/02/16 01:00 (Lactulose Liq) 30 ml DAILY PRN PO 12/02/16 01:00 (Xanax) 0.25 mg Q8H PRN PO 12/02/16 01:00 12/16/16 20:35 (Norvasc) 5 mg DAILY PO 12/02/16 09:00 12/17/16 08:59 (Flexeril) 5 mg TID PO 12/02/16 09:00 12/17/16 09:00 (Breo Ellipta 100-25 Inh) 1 puff HS INH 12/02/16 21:00 Hold (Neurontin) 600 mg TID PO 12/02/16 09:00 12/17/16 08:59 (Milk Of Magnesia Liq) 30 ml DAILY PRN PO 12/02/16 01:00 (Miralax) 17 gm HS PO 12/02/16 21:00 12/16/16 20:34 Lactobacillus Acidophilus 1 tab 1 tab BID PO 12/02/16 09:00 12/17/16 08:59 Potassium Chloride 100 ml @ 50 mls/hr Q2H PRN IV 12/02/16 10:30 (KCl 20 Meq Premix Inj) 100 ml @ 50 mls/hr Q2H PRN IV 12/02/16 10:30 Potassium Bicarb/ Potassium Chloride 50 meq 50 meq UNSCH PRN PO 12/02/16 10:30 Potassium Chloride 100 ml @ 25 mls/hr UNSCH PRN IV 12/02/16 10:30 Potassium Chloride 100 ml @ 50 mls/hr Q2H PRN IV 12/02/16 10:30 (Magnesium Sulfate Inj/NS Inj) 100 ml @ 50 mls/hr UNSCH PRN IV 12/02/16 10:30 Magnesium Oxide 800 mg 800 mg UNSCH PRN PO 12/02/16 10:30 (Magnesium Sulfate Inj/NS Inj) 100 ml @ 50 mls/hr UNSCH PRN IV 12/02/16 10:30 Potassium Phosphate 2000 mg 2,000 mg Q4H PRN PO 12/02/16 10:30 (Sodium Phosphate Inj/NS 250 ml Inj) 250 ml @ 42 mls/hr UNSCH PRN IV 12/02/16 10:30 12/02/16 12:44 Potassium Phosphate 2000 mg 2,000 mg UNSCH PRN PO/TUBE 12/02/16 10:30 (Potassium Phosphate Inj/NS 250 ml Inj) 260 ml @ 42 mls/hr UNSCH PRN IV 12/02/16 10:30 (SoluMEDROL INJ) 40 mg Q8HR IV 12/02/16 22:00 12/17/16 05:21 (D50w (Vial) Inj) 50 ml UNSCH PRN IV 12/03/16 08:30 (Glucagon Inj) 1 mg UNSCH PRN OTHER 12/03/16 08:30 (NovoLIN R SUPPLEMENTAL SCALE) 1 Q6HR SQ 12/03/16 08:30 12/15/16 17:37 (Xarelto) 20 mg DAILY PO 12/03/16 13:00 12/17/16 08:59 (Peridex 0.12% Liq) 15 ml BID@08,20 MT 12/04/16 20:00 12/14/16 20:00 (Pepcid) 20 mg DAILY NG 12/04/16 09:00 12/17/16 08:59 (Ferrous Sulfate Liq) 300 mg BID PO 12/04/16 21:00 12/17/16 09:00 (Synthroid) 25 mcg DAILY@0600 PO 12/06/16 06:00 12/17/16 05:20 (Reglan Inj) 5 mg Q8HR IV PUSH 12/06/16 14:00 12/17/16 05:20 (Apresoline Inj) 20 mg Q4H PRN IV PUSH 12/07/16 23:30 12/10/16 02:05 (Vasotec Inj) 2.5 mg Q6H PRN IV PUSH 12/07/16 23:30 (Percocet 5-325 Mg) 1 tab Q6H PRN PO 12/08/16 14:00 12/16/16 05:08 (Lopressor) 50 mg Q12HR PO 12/09/16 21:00 12/17/16 08:59 (Pill Splitter) 1 ea UNSCH PRN OTHER 12/10/16 10:30 (Lasix) 20 mg DAILY PO 12/17/16 09:00 12/17/16 09:00 A/P Assessment and Plan 1. Fibromyalgia/History of right posterior frontal lobe CVA/chronic benzodiazepine use/chronic opiate use On Xanax 0.25 mg every [address] head on admission revealed old cephalization of the right posterior frontal lobe. Neurontin 600 mill grams by mouth 3 times a day/home medication 2. Acute Hypoxemic respiratory failure Extubated 12/07/16, history of COPD/CAP Continue Oxygen as needed to maintain Oxygen saturation over 92% Pulmicort 0.5/2 one inhalation twice a day, Bronchodilator, mucolytic, Solu -Medrol 40 mg every [address] chest revealed bilateral lower lobe pneumonia/right upper lobe pneumonia , was on antibiotics. mission support specialist is following- Dr. Cummings, at this time on non rebreather mask. not improving on full management, but the patient elected to continue Aggressive management. 3. 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 Mild uncontrol at this time continue present care Echocardiogram 10/06 revealed EF 60%. Left atrial dilatation. No regional wall motion abnormality. Echocardiogram 12/06 revealed EF 65-70%. Trace TR. Normal pulmonary pressures. Noted CT chest revealed 4.5 fusiform dilatation of the aorta at the retrocardiac with cardiomegaly 4. Cholelithiasis/Hypoalbuminemia on Pepcid for GI prophylaxis, bowel regimen. 5. CAP on Aztreonam, Azithromycin, Flagyl since 12/02, cultures negative, afebrile, Strep pneumonia and Legionella antigen negative. 12/02 - sputum - negative 12/01 - blood cultures 2 - no growth 12/01 - urine - negative 6. Normocytic Anemia/chronic Xarelto 20 mg daily, Bilateral posterior tibial nonocclusive DVT, continue Iron sulfate Iron sulfate 325 mg 3 times a day. 7. Hypothyroidism continue Hormonal replacement GI prophylaxis- on Pepcid DVT Protonix- Xarelto 20mg daily (home med) Poor assisted prognosis, asked for appointment specialist consult. Discharge Planning not yet ready for discharge Poor assisted prognosis. Galileo Gomez MD Dec 17, 2016 14:19
--- NOTE | 2016-12-17 15:16 | HHI.PR ---
Subjective Remarks 76 YOWf with Severe COPD, known to me from office has multiple admissions in the hosp Extubated 12/07 Appetite poor On Soft diet Apppeitie improving Gets tired easily Used BIPAP all night now, on PRB Objective Vital Signs Vital Signs Date Time Temp Pulse Resp B/P Pulse Ox O2 Delivery O2 Flow Rate FiO2 12/17/16 07:19 92 Partial Rebreather 12.00 12/17/16 07:00 90 Partial Non-Rebreather 12/17/16 04:00 98.2 59 27 163/88 92 12/17/16 00:00 98.1 57 26 139/77 94 12/16/16 20:00 98.0 60 30 137/73 88 12/16/16 19:40 94 Partial Rebreather 15.00 12/16/16 19:00 Non-Rebreather 12/16/16 18:00 53 24 130/73 92 12/16/16 17:01 61 156/70 86 12/16/16 17:00 90 100 12/16/16 16:22 88 Partial Rebreather 13.00 12/16/16 16:00 98.3 55 24 148/67 81 I/O 12/16/16 12/16/16 12/16/16 12/17/16 12/17/16 12/17/16 07:00 15:00 23:00 07:00 15:00 23:00 Intake Total 120 ml 360 ml 480 ml 120 ml Balance 120 ml 360 ml 480 ml 120 ml Intake Oral 120 ml 360 ml 480 ml 120 ml IV Total 0 ml 0 ml 0 ml # Voids 2 8 4 2 # Bowel Movements 0 0 1 0 Result Diagram: 12/16/1691512/16/1616 Objective Remarks GENERAL: MBMN Wf, on vent, sedated SKIN: Warm and dry. HEAD: Normocephalic. EYES: No scleral icterus. No injection or drainage. NECK: Supple, trachea midline. No JVD or lymphadenopathy. CARDIOVASCULAR: Regular rate and rhythm without murmurs, gallops, or rubs. RESPIRATORY: Breath sounds equal bilaterally. No accessory muscle use. GASTROINTESTINAL: Abdomen soft, non-tender, nondistended. MUSCULOSKELETAL: No cyanosis, or edema. BACK: Nontender without obvious deformity. No CVA tenderness. A/P Assessment and Plan VDRF, s/p extubation Severe COPD Pneumonia AF CHF Pleural effusion PLAN: Aerosol nebs Cont Abx Xarelto 20 mg daily Diurease Will need trilogy for home use 02 with PRB, keep sat 88-92% CPAP10/5 at night and PRN Arvind Cummings MD Dec 17, 2016 15:16
[2016-12-17 19:25] LABS: BLOOD, URINE NEG (NEG); GLUCOSE,URINE NEG (NEG); HYALINE CAST, URINE 1 /lpf (RARE); KETONE, URINE NEG (NEG); NITRITE,URINE NEG (NEG); SQUAMOUS EPITHELIAL CELL URINE <1 /hpf (0-5); URINE COLOR YELLOW (YELLW/STRAW)
[2016-12-17 19:28] LABS: COMMENT (UR) CATH-CULT NOT IND; CULTURE IF INDICATED CATH CULTURE NOT IND
[2016-12-17] MEDS: POLYETHYLENE GLYCOL 17 GM PKG PO SCH (20:09)
[2016-12-17] MEDS: ALPRAZolam 0.25 MG TAB PO PRN (21:32)
[2016-12-17] MEDS: oxyCODONE/ACETAMINOPHEN 5 MG/325 MG TAB PO PRN (21:32)
[2016-12-18] VITALS (15 sets, daily range): BP systolic 114–153; BP diastolic 62–73; PULSE 51–66; RESP 16–40; TEMP 97.8–98.9; O2SAT 90–98
[2016-12-18] MEDS: oxyCODONE/ACETAMINOPHEN 5 MG/325 MG TAB PO PRN ×2 (03:28→09:56)
[2016-12-18] MEDS: CHLORHEXIDINE GLUCONATE 2 % 1 PACK (2 CLOTHS) TOP SCH (04:00)
[2016-12-18] MEDS: INSULIN NovoLIN REGULAR SUPPLEMENTAL SCALE SQ SCH ×3 (05:46→18:16)
[2016-12-18] MEDS: LEVOTHYROXINE SODIUM 25 MCG TAB PO SCH (05:46)
[2016-12-18] MEDS: methylPREDNISolone SOD SUCC 40 MG/1 ML VIAL IV SCH ×3 (05:46→20:51)
[2016-12-18] MEDS: METOCLOPRAMIDE HCL 10 MG/2 ML VIAL IV PUSH SCH ×3 (05:46→20:51)
[2016-12-18] MEDS: CHLORHEXIDINE 0.12% (ORAL KIT) 15 ML CUP MT SCH ×2 (08:00→21:07)
[2016-12-18] MEDS: RESP: BUDESONIDE 0.5 MG/2 ML NEB NEB SCH ×3 (08:00→20:10)
[2016-12-18] MEDS: FERROUS SULFATE 300 MG /5ML UDC PO SCH ×2 (09:50→20:50)
[2016-12-18] MEDS: amLODIPine BESYLATE 5 MG TAB PO SCH (09:51)
[2016-12-18] MEDS: FUROSEMIDE 20 MG TAB PO SCH (09:51)
[2016-12-18] MEDS: DOCUSATE SODIUM 50 MG/SENNA 8.6 MG TAB PO SCH ×2 (09:51→20:51)
[2016-12-18] MEDS: CYCLOBENZAPRINE HCL 10 MG TAB PO SCH ×3 (09:51→18:14)
[2016-12-18] MEDS: LACTOBACILLUS ACIDOPHILUS TAB PO SCH ×2 (09:51→20:50)
[2016-12-18] MEDS: METOPROLOL TARTRATE 25 MG TAB PO SCH ×2 (09:51→20:50)
[2016-12-18] MEDS: RIVAROXABAN 20 MG TAB PO SCH (09:51)
[2016-12-18] MEDS: GABAPENTIN 300 MG CAP PO SCH ×3 (09:51→18:14)
[2016-12-18] MEDS: FAMOTIDINE 20 MG TAB NG SCH (09:51)
[2016-12-18] MEDS: SODIUM CHLORIDE 0.9% FLUSH 10 ML FLUSH SCH ×2 (09:52→20:50)
--- NOTE | 2016-12-18 14:18 | HHI.PR ---
Subjective Remarks Still with some shortness of breath. Tolerating diet. No complaint of chest pain. Generalized weakness. Objective Vitals Vital Signs Date Time Temp Pulse Resp B/P Pulse Ox O2 Delivery O2 Flow Rate FiO2 12/18/16 11:00 18 12/18/16 10:00 64 12/18/16 08:00 63 12/18/16 08:00 98.0 62 34 146/73 90 12/18/16 07:00 95 Partial Non-Rebreather 12/18/16 04:00 98.2 58 30 125/67 97 12/18/16 00:00 98.4 58 16 114/62 98 12/17/16 22:00 73 12/17/16 20:14 94 Partial Rebreather 12.00 12/17/16 20:00 93 Partial Non-Rebreather 12/17/16 20:00 98.9 74 27 140/73 94 12/17/16 20:00 74 12/17/16 19:17 98.3 76 16 160/90 93 12/17/16 18:00 67 12/17/16 16:00 68 12/17/16 16:00 98.5 68 18 142/70 95 I/O 12/17/16 12/17/16 12/17/16 12/18/16 12/18/16 12/18/16 07:00 15:00 23:00 07:00 15:00 23:00 Intake Total 120 ml 360 ml 480 ml 50 ml Output Total 425 ml 500 ml 250 ml Balance 120 ml -65 ml -20 ml -200 ml Intake Oral 120 ml 360 ml 480 ml 50 ml IV Total 0 ml 0 ml 0 ml Output Urine Total 425 ml 500 ml 250 ml # Voids 2 4 # Bowel Movements 0 0 0 Result Diagram: 12/16/1616 12/16/16 0916 Objective Remarks GENERAL: This is a well-nourished, thin, well-developed patient, in no apparent distress. CARDIOVASCULAR: Regular rate and rhythm w RESPIRATORY: Diminished breath sounds bilaterally GASTROINTESTINAL: Abdomen soft, non-tender, nondistended. 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 A/P Problem List: (1) Acute respiratory failure with hypoxia and hypercapnia ICD Code: J96.01 Status: Acute (2) Chronic obstructive pulmonary disease with acute exacerbation ICD Code: J44.1 Status: Acute (3) Hypoalbuminemia ICD Code: E88.09 Status: Chronic Assessment and Plan 1. Fibromyalgia with a history of History of right posterior frontal lobe CVA/ chronic benzodiazepine use/chronic opiate use - Xanax 0.25 mg every 8 hours PRN anxiety Neurontin 600 mill grams by mouth 3 times a day/home medication 2. Acute Hypoxemic respiratory failure Extubated 12/07/16, history of COPD/CAP Continue Oxygen as needed to maintain Oxygen saturation over 92%; Pulmicort 0.5/2 one inhalation twice a day, Bronchodilator, mucolytic, Solu- Medrol 40 mg every [address] chest revealed bilateral lower lobe pneumonia/right upper lobe pneumonia , completing antibiotic regimen. enrichment specialist is following- Dr. Cummings, at this time on non rebreather mask. Continue to wean O2 support as tolerated. full management, but the patient elected to continue Aggressive management. Palliative care consult has been requested. 3. 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 overall blood pressure adequately controlled. Echocardiogram 10/06 revealed EF 60%. Left atrial dilatation. No regional wall motion abnormality. Echocardiogram 12/06 revealed EF 65-70%. Trace TR. Normal pulmonary pressures. 4. Cholelithiasis/Hypoalbuminemia on Pepcid for GI prophylaxis, bowel regimen. 5. CAP and completed antibiotics Aztreonam, Azithromycin, Flagyl , cultures negative, afebrile, Strep pneumonia and Legionella antigen negative. 12/02 - sputum - negative 12/01 - blood cultures 2 - no growth 12/01 - urine - negative 6. Normocytic Anemia/chronic continue Iron sulfate Iron sulfate 325 mg 3 times a day. 7. Hypothyroidism continue Hormonal replacement 8. Bilateral posterior tibial nonocclusive DVT -xarelto 9. malnutrition - supplement GI prophylaxis- on Pepcid DVT Protonix- Xarelto 20mg daily (home med) Palliative care services following assisting with advanced directives and designated healthcare surrogate and defining goals for this hospitalization. Monse Armenta MD Dec 18, 2016 14:18
[2016-12-18] MEDS: ALPRAZolam 0.25 MG TAB PO PRN (14:19)
--- NOTE | 2016-12-18 17:55 | HHI.PR ---
Subjective Remarks 76 YOWf with Severe COPD, known to me from office has multiple admissions in the hosp Extubated 12/07 Appetite poor On Soft diet Apppeitie improving now, on PRB Family at Objective Vital Signs Vital Signs Date Time Temp Pulse Resp B/P Pulse Ox O2 Delivery O2 Flow Rate FiO2 12/18/16 16:00 98.3 54 20 121/64 91 12/18/16 16:00 54 12/18/16 15:00 52 12/18/16 14:00 52 12/18/16 13:00 51 12/18/16 12:00 98.9 51 21 153/69 95 12/18/16 12:00 51 12/18/16 11:00 18 12/18/16 10:00 64 12/18/16 08:00 63 12/18/16 08:00 98.0 62 34 146/73 90 12/18/16 07:00 95 Partial Non-Rebreather 12/18/16 04:00 98.2 58 30 125/67 97 12/18/16 00:00 98.4 58 16 114/62 98 12/17/16 22:00 73 12/17/16 20:14 94 Partial Rebreather 12.00 12/17/16 20:00 93 Partial Non-Rebreather 12/17/16 20:00 98.9 74 27 140/73 94 12/17/16 20:00 74 12/17/16 19:17 98.3 76 16 160/90 93 12/17/16 18:00 67 I/O 12/17/16 12/17/16 12/17/16 12/18/16 12/18/16 12/18/16 07:00 15:00 23:00 07:00 15:00 23:00 Intake Total 120 ml 360 ml 480 ml 50 ml 480 ml Output Total 425 ml 500 ml 250 ml 650 ml Balance 120 ml -65 ml -20 ml -200 ml -170 ml Intake Oral 120 ml 360 ml 480 ml 50 ml 480 ml IV Total 0 ml 0 ml 0 ml 0 ml Output Urine Total 425 ml 500 ml 250 ml 650 ml # Voids 2 4 # Bowel Movements 0 0 0 5 Result Diagram: 12/16/1691512/16/16915 Objective Remarks GENERAL: MBMN Wf, on vent, sedated SKIN: Warm and dry. HEAD: Normocephalic. EYES: No scleral icterus. No injection or drainage. NECK: Supple, trachea midline. No JVD or lymphadenopathy. CARDIOVASCULAR: Regular rate and rhythm without murmurs, gallops, or rubs. RESPIRATORY: Breath sounds equal bilaterally. No accessory muscle use. GASTROINTESTINAL: Abdomen soft, non-tender, nondistended. MUSCULOSKELETAL: No cyanosis, or edema. BACK: Nontender without obvious deformity. No CVA tenderness. A/P Assessment and Plan VDRF, s/p extubation Severe COPD Pneumonia AF CHF Pleural effusion PLAN: Aerosol nebs Cont Abx Xarelto 20 mg daily Diurease Will need trilogy for home use 02 with PRB, keep sat 88-92% CPAP10/5 at night and PRN DW Family Arvind Cummings MD Dec 18, 2016 17:55
--- NOTE | 2016-12-18 19:07 | HHI.HCPN ---
Reason for visit a. To assist with evaluation and management of symptoms including: SOB, anxiety, decreased appetite, debility b. To assist medical decision maker(s) with: better understanding of current medical conditions; weighing benefits/burdens of medical treatment options; making medical treatment decisions. . Subjective/Interval History Ms. Diaz is a 76-year-old female who presented from her home to [facility] ED via EMS on 12/01/2016 for evaluation of AMS and shortness of breath. While in the ED, the patient became increasingly lethargic and less responsive. She was emergently intubated and placed on 100% FiO2 with a PEEP of 5; she was subsequently admitted to critical care services for medical management of acute respiratory failure with hypoxia and hypercapnia.PMH: HTN, previous PE and DVT, CHF, COPD-oxygen dependent, history of goiter s/p radiation therapy with subsequent hypothyroidism, dyslipidemia, fibromyalgia, arthritis, cholelithiasis , diverticulosis, RLS, sciatica and iron deficiency anemia. She has been hospitalized 5 times since 09/10/2016 with COPD exacerbations and respiratory failure requiring intubation. Patient was extubated approximately 6 days later on 12/07/2016, She remains on high levels of oxygen via non-rebreather with saturations in the mid 90s. Patient reports some ongoing shortness of breath and weakness. She denies pain on exam. Patient was treated with antibiotics (Aztreonam, Azithromycin, Flagyl) x 7 days , discontinued 12/09/2016. Afebrile, all cultures negative. No new lab work available. = 12/02 - sputum - negative = 12/01 - blood cultures 2 - no growth = 12/01 - urine - negative = Negative influenza Patient continues to express aggressive goals; wishes to remain a full code. Patient was not accepted to [facility] secondary to insurance denial, and no other SNF will accept the patient at this time because of high oxygen requirement. Case management following. . Advance Directives Health Care Surrogate: Copy in medical record Advance Directive Specifics Date completed: 12/17/2016 . Health Care Surrogate(s): Patient's son (Ga Diaz) is designated as the primary health care surrogate decision maker. The patient has designated her daughter (Mattie Diaz) as the alternate health care surrogate decision maker. . Documented care wishes: Healthcare surrogate form was completed today (12/17/2016). Document was faxed to HIM to be scanned into the patient's EMR; copies were also placed and the patient's chart and left at patient's bedside. . Objective Vital Signs Date Time Temp Pulse Resp B/P Pulse Ox O2 Delivery O2 Flow Rate FiO2 12/18/16 18:00 60 12/18/16 16:00 98.3 54 20 121/64 91 12/18/16 16:00 54 12/18/16 15:00 52 12/18/16 14:00 52 12/18/16 13:00 51 12/18/16 12:00 98.9 51 21 153/69 95 12/18/16 12:00 51 12/18/16 11:00 18 12/18/16 10:00 64 12/18/16 08:00 63 12/18/16 08:00 98.0 62 34 146/73 90 12/18/16 07:00 95 Partial Non-Rebreather 12/18/16 04:00 98.2 58 30 125/67 97 12/18/16 00:00 98.4 58 16 114/62 98 12/17/16 22:00 73 12/17/16 20:14 94 Partial Rebreather 12.00 12/17/16 20:00 93 Partial Non-Rebreather 12/17/16 20:00 98.9 74 27 140/73 94 12/17/16 20:00 74 12/17/16 19:17 98.3 76 16 160/90 93 Intake & Output 12/18/16 12/18/16 07:00 19:00 Intake Total 530 ml 480 ml Output Total 750 ml 650 ml Balance -220 ml -170 ml Intake Oral 530 ml 480 ml IV Total 0 ml 0 ml Output Urine Total 750 ml 650 ml # Bowel Movements 0 5 . Physical Exam CONSTITUTIONAL/GENERAL: This is a chronically ill appearing, elderly female patient experiencing mild respiratory distress. TUBES/LINES/DRAINS: PIV 1 SKIN: Ashen color. Skin appears thin and fragile. No jaundice, rashes, or lesions. Skin temperature appropriate. Not diaphoretic. HEAD: Atraumatic. Normocephalic. EYES: PERRLA. No scleral icterus. No injection or drainage. Fundi not examined. ENT: Hearing grossly normal. Nose without bleeding or purulent drainage. NECK: Trachea midline. Supple, nontender. No palpable thyroid enlargement or nodularity. CARDIOVASCULAR: Regular rate and rhythm without murmurs, gallops, or rubs. No JVD. Peripheral pulses symmetric. RESPIRATORY/CHEST: Respirations mildly labored on partial nonrebreather. Breath sounds significantly diminished bilaterally. GASTROINTESTINAL: Abdomen soft, non-tender, nondistended. No guarding. Bowel sounds present. GENITOURINARY: Without palpable bladder distension. MUSCULOSKELETAL: Extremities without clubbing, cyanosis, or edema. LYMPHATICS: No palpable cervical or supraclavicular adenopathy. NEUROLOGICAL: Awake, lethargic. Follows commands. Moves all extremities. Able to make needs known. PSYCHIATRIC: No obvious anxiety/depression. no apparent hallucinations or other psychotic thought process. . Diagnostic Tests Laboratory Laboratory Tests Test 12/16/16 12/16/16 12/17/16 09:16 16:00 15:45 White Blood Count 13.2 TH/MM3 (4.0-11.0) Red Blood Count 3.38 MIL/MM3 (4.00-5.30) Hemoglobin 10.4 GM/DL (11.6-15.3) Hematocrit 32.3 % (35.0-46.0) Mean Corpuscular Volume 95.6 FL (80.0-100.0) Mean Corpuscular Hemoglobin 30.8 PG (27.0-34.0) Mean Corpuscular Hemoglobin 32.2 % Concent (32.0-36.0) Red Cell Distribution Width 16.6 % (11.6-17.2) Platelet Count 240 TH/MM3 (150-450) Mean Platelet Volume 9.0 FL (7.0-11.0) Neutrophils (%) (Auto) 87.2 % (16.0-70.0) Lymphocytes (%) (Auto) 7.5 % (9.0-44.0) Monocytes (%) (Auto) 5.2 % (0.0-8.0) Eosinophils (%) (Auto) 0.0 % (0.0-4.0) Basophils (%) (Auto) 0.1 % (0.0-2.0) Neutrophils # (Auto) 11.6 TH/MM3 (1.8-7.7) Lymphocytes # (Auto) 1.0 TH/MM3 (1.0-4.8) Monocytes # (Auto) 0.7 TH/MM3 (0-0.9) Eosinophils # (Auto) 0.0 TH/MM3 (0-0.4) Basophils # (Auto) 0.0 TH/MM3 (0-0.2) CBC Comment DIFF FINAL Differential Comment Sodium Level 136 MEQ/L (136-145) Potassium Level 4.2 MEQ/L (3.5-5.1) Chloride Level 91 MEQ/L (98-107) Carbon Dioxide Level GREATER THAN 45.0 MEQ/L (21.0-32.0) Anion Gap 0 MEQ/L (5-15) Blood Urea Nitrogen 25 MG/DL (7-18) Creatinine 0.69 MG/DL (0.50-1.00) Estimat Glomerular Filtration 82 ML/MIN (>89) Rate Random Glucose 139 MG/DL (74-106) Calcium Level 9.8 MG/DL (8.5-10.1) Magnesium Level 2.5 MG/DL (1.5-2.5) Blood Gas Puncture Site RT RADIAL Blood Gas Patient Temperature 98.6 Blood Gas HCO3 48 mmol/L (22-26) Blood Gas Base Excess 21.2 mmol/L (-2-2) Blood Gas Oxygen Saturation 87 % (90-100) Arterial Blood pH 7.39 (7.380-7.420) Arterial Blood Partial 81 mmHg (38-42) Pressure CO2 Arterial Blood Partial 56 mmHg Pressure O2 (61-120) Arterial Blood Oxygen Content 12.3 Vol % (12.0-20.0) Arterial Blood 1.8 % (0-4) Carboxyhemoglobin Arterial Blood Methemoglobin 1.2 % (0-2) Blood Gas Hemoglobin 10.0 G/DL (12.0-16.0) Oxygen Delivery Device Partial Rebreather Blood Gas Liter Flow 13 L/M Urine Color YELLOW (YELLW/STRAW) Urine Turbidity CLEAR (CLEAR) Urine pH 8.0 (5.0-8.5) Urine Specific [place] 1.008 (1.002-1.035) Urine Protein NEG mg/dL (NEG-TRACE) Urine Glucose (UA) NEG mg/dL (NEG) Urine Ketones NEG mg/dL (NEG) Urine Occult Blood NEG (NEG) Urine Nitrite NEG (NEG) Urine Bilirubin NEG (NEG) Urine Urobilinogen LESS THAN 2.0 MG/DL (LESS THAN 2.0) Urine Leukocyte Esterase NEG (NEG) Urine RBC LESS THAN 1 /hpf (0-3) Urine WBC 1 /hpf (0-5) Urine Squamous Epithelial <1 /hpf (0-5) Cells Urine Hyaline Casts 1 /lpf (RARE) Microscopic Urinalysis Comment CATH-CULT NOT IND . Result Diagram: 12/16/16 0916 12/16/16 0916 Procedures 12/01/2016: Intubation 12/07/2016: Extubation . Assessment and Plan Disease Oriented Problem List: (1) Acute respiratory failure with hypoxia (2) Chronic obstructive pulmonary disease with acute exacerbation Comment: Pulmicort 0.5mg neb inhalation q12 hours Solu-Medrol 40 mg IV every 8 hours Bronchodilators Pulmonology, Dr. Cummings, continues to follow. (3) Pneumonia Comment: CT chest revealed bilateral lower lobe pneumonia/right upper lobe pneumonia Aztreonam, Azithromycin, Flagyl from 12/02/16-12/09. (4) Pleural effusion (5) CHF (congestive heart failure) (6) DVT of lower extremity, bilateral Comment: Bilateral posterior tibial nonocclusive DVT On Xarelto 20mg PO daily (7) Anemia (8) Hypertension Comment: On Norvasc 5mg daily and Metoprolol 50mg PO BID (9) Hypoalbuminemia (10) Fibromyalgia (11) Cholelithiasis Symptom Scale: (1) Debility, unspecified (2) Decreased appetite (3) Anxiety (4) Shortness of breath Pertinent Non-Medical Issues Psychosocial: Patient is originally from [place], [place]. Her father in a MVA and when the patient was 4 years old. She has one sister (Madhavi) who lives in [place], [place]. The patient states they are very close. The patient was to her first for 10 years, and her second for approximately 44 years. She is . The patient had 8 children, but 2 are now . (6 living children: 4 daughters and 2 sons) She moved to [place] approximately 17 years ago and is living with her son (Ga). 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 Spiritual: Scientologist cherise Legal: Patient's son (Ga Diaz) is designated as the primary health care surrogate decision maker. The patient has designated her daughter (Mattie Diaz ) as the alternate health care surrogate decision maker. Ethical issues impacting care: No known ethical issues impacting care at this time. . Important Contacts Ga Diaz, son: [phone] Mattie Diaz, daughter: [phone] . Prognosis Patient is a 76-year-old female with multiple comorbid conditions. She has been hospitalized 4 to 5 times since 09/10/2016 with COPD exacerbations, CAP and respiratory failure requiring intubation. Patient has had an acute change in her disease trajectory over the past 6 months as evidenced by multiple hospitalizations, weight loss, progressively worsening dyspnea with increased oxygen requirements, increased weakness/fatigue. Poor correction prognosis. . Code Status: Full Code Plan * FULL CODE * Decision-making: Patient shows insight and judgment related to her medical conditions, currently capacitated to participate in her own medical decision making. Healthcare surrogate form was completed today (12/17/2016).Patient's son (Ga Diaz) is designated as the primary health care surrogate decision maker. The patient has designated her daughter (Mattie Diaz) as the alternate health care surrogate decision maker. Document was faxed to HIM to be scanned into the patient's EMR; copies were also placed and the patient's chart and left at patient's bedside. * Goals: Goals remain aggressive at this time. Patient is amenable to placement upon discharge but remains optimistic that she will be able to return home in the future. * [facility] from [facility] plans to appeal with doctor to doctor conversation. Other SNF will not accept patient secondary to the patients high oxygen requirements.Case management continues to follow, assisting with discharge planning. * Symptom management-shortness of breath: Educated patient on non- pharmacological management of shortness of breath i.e environmental control, pacing activities, limiting stress, relaxation techniques, position. Pharmacological recommendations deferred to pulmonology. * Symptom management-debility: Patient having ongoing weakness, reporting increased difficulty completing ADLs and increased fatigue. Physical therapy is following. Patient would benefit from SNF placement upon discharge for rehab. * Palliative care will continue to follow this patient throughout her hospitalization to establish trust, assist with symptom management and clarification of medical treatment goals. . . Attestation To help prompt me to consider important information that might be impacting today's encounter and assessment, information from prior notes written by myself or my colleagues may have been "brought forward" into today's note. My signature on this note, however, is an attestation that I personally performed the exam, history, and/or decision-making noted today, and, unless otherwise indicated, the interactions with patient, family, and staff as well as the review of records all occurred today. I also attest that the listed assessment and stated plan reflect my best clinical judgment today based on the combination of historical information, prior notes, and today's exam/ interactions. When time spent is documented, it refers only to time spent today by the signer, or if indicated, combined time spent today by collaborating physician/nurse practitioner. . Mely Driver Dec 18, 2016 19:07 Legal: Patient's son (Ga Diaz) is designated as the primary health care surrogate decision maker. The patient has designated her daughter (Mattie Diaz ) as the alternate health care surrogate decision maker. Ethical issues impacting care: No known ethical issues impacting care at this time. . Important Contacts Ga Diaz, son: [phone] Mattie Diaz, daughter: [phone] . Prognosis Patient is a 76-year-old female with multiple comorbid conditions. She has been hospitalized 4 to 5 times since 09/10/2016 with COPD exacerbations, CAP and respiratory failure requiring intubation. Patient has had an acute change in her disease trajectory over the past 6 months as evidenced by multiple hospitalizations, weight loss, progressively worsening dyspnea with increased oxygen requirements, increased weakness/fatigue. Poor salvage determiner prognosis. . Code Status: Full Code Plan * FULL CODE * Decision-making: Patient shows insight and judgment related to her medical conditions, currently capacitated to participate in her own medical decision making. Healthcare surrogate form was completed today (12/17/2016).Patient's son (Ga Diaz) is designated as the primary health care surrogate decision maker. The patient has designated her daughter (Mattie Diaz) as the alternate health care surrogate decision maker. Document was faxed to HIM to be scanned into the patient's EMR; copies were also placed and the patient's chart and left at patient's bedside. * Goals: Goals remain aggressive at this time. Patient is amenable to placement upon discharge but remains optimistic that she will be able to return home in the future. * Discussed with case management (Silvia) who is working toward basement when patient is stable, possibly [facility]. * Palliative care had a lengthy discussion with the patient regarding her diagnosis of COPD with multiple co-morbid conditions and recent hospitalizations (5 hospitalizations since 09/10/2016). She reports a 6 month decline with worsening symptoms: shortness of breath, * Palliative care contact information provided to patient * Palliative care will continue to follow this patient throughout her hospitalization to establish trust, assist with symptom management and clarification of medical treatment goals. . . Mely Driver Dec 18, 2016 19:07
[2016-12-18] MEDS: RESP: ALBUTEROL 2.5 MG/IPRATROPIUM 0.5 MG NEB (PRN) NEB (20:11)
[2016-12-18] MEDS: POLYETHYLENE GLYCOL 17 GM PKG PO SCH (20:51)
[2016-12-19] VITALS (15 sets, daily range): BP systolic 106–152; BP diastolic 55–77; PULSE 54–76; RESP 18–39; TEMP 96.8–98.7; O2SAT 60–98
[2016-12-19] MEDS: CHLORHEXIDINE GLUCONATE 2 % 1 PACK (2 CLOTHS) TOP SCH (04:00)
[2016-12-19] MEDS: INSULIN NovoLIN REGULAR SUPPLEMENTAL SCALE SQ SCH ×5 (06:00→22:12)
[2016-12-19] MEDS: methylPREDNISolone SOD SUCC 40 MG/1 ML VIAL IV SCH ×3 (06:33→22:16)
[2016-12-19] MEDS: METOCLOPRAMIDE HCL 10 MG/2 ML VIAL IV PUSH SCH ×3 (06:34→22:16)
[2016-12-19] MEDS: ALPRAZolam 0.25 MG TAB PO PRN ×2 (06:34→18:54)
[2016-12-19] MEDS: LEVOTHYROXINE SODIUM 25 MCG TAB PO SCH (06:34)
[2016-12-19] MEDS: CHLORHEXIDINE 0.12% (ORAL KIT) 15 ML CUP MT SCH ×2 (06:38→20:00)
[2016-12-19] MEDS: RESP: BUDESONIDE 0.5 MG/2 ML NEB NEB SCH ×2 (08:50→19:57)
[2016-12-19] MEDS: RESP: ALBUTEROL 2.5 MG/IPRATROPIUM 0.5 MG NEB (PRN) NEB ×3 (08:50→19:57)
[2016-12-19] MEDS: METOPROLOL TARTRATE 25 MG TAB PO SCH ×2 (09:00→22:15)
[2016-12-19] MEDS: CYCLOBENZAPRINE HCL 10 MG TAB PO SCH ×3 (09:33→17:50)
[2016-12-19] MEDS: FERROUS SULFATE 300 MG /5ML UDC PO SCH ×2 (09:33→22:12)
[2016-12-19] MEDS: oxyCODONE/ACETAMINOPHEN 5 MG/325 MG TAB PO PRN ×2 (09:33→15:52)
[2016-12-19] MEDS: GABAPENTIN 300 MG CAP PO SCH ×3 (09:33→17:50)
[2016-12-19] MEDS: LACTOBACILLUS ACIDOPHILUS TAB PO SCH ×2 (09:34→22:14)
[2016-12-19] MEDS: FAMOTIDINE 20 MG TAB NG SCH (09:34)
[2016-12-19] MEDS: RIVAROXABAN 20 MG TAB PO SCH (09:34)
[2016-12-19] MEDS: FUROSEMIDE 20 MG TAB PO SCH (09:34)
[2016-12-19] MEDS: SODIUM CHLORIDE 0.9% FLUSH 10 ML FLUSH SCH ×2 (09:34→22:16)
[2016-12-19] MEDS: DOCUSATE SODIUM 50 MG/SENNA 8.6 MG TAB PO SCH ×2 (09:34→21:00)
[2016-12-19] MEDS: amLODIPine BESYLATE 5 MG TAB PO SCH (09:34)
--- NOTE | 2016-12-19 10:32 | HHI.PR ---
Subjective Remarks On rebreather mask. Says she feels improving some. With SOB, less wheezing. Says she would like PT. Consult PT/OT. Patient denies having any fever or chills. Coughing scant sputum. Objective Vitals Vital Signs Date Time Temp Pulse Resp B/P Pulse Ox O2 Delivery O2 Flow Rate FiO2 12/19/16 08:51 60 Partial Rebreather 15.00 60 12/19/16 07:00 Non-Rebreather 15.00 100 12/19/16 06:00 60 12/19/16 04:00 54 12/19/16 04:00 98.2 54 19 139/72 90 12/19/16 02:00 55 12/19/16 00:00 98.7 54 26 135/70 94 12/19/16 00:00 54 12/18/16 22:00 56 12/18/16 21:41 93 Partial Rebreather 15.00 12/18/16 20:50 94 Non-Rebreather 15.00 65 12/18/16 20:12 93 Partial Rebreather 14.00 12/18/16 20:00 66 12/18/16 20:00 97.8 66 40 124/66 93 12/18/16 19:00 Partial Non-Rebreather 12.00 100 12/18/16 18:00 60 12/18/16 16:00 98.3 54 20 121/64 91 12/18/16 16:00 54 12/18/16 15:00 52 12/18/16 14:00 52 12/18/16 13:00 51 12/18/16 12:00 98.9 51 21 153/69 95 12/18/16 12:00 51 12/18/16 11:00 18 I/O 12/18/16 12/18/16 12/18/16 12/19/16 12/19/16 12/19/16 07:00 15:00 23:00 07:00 15:00 23:00 Intake Total 50 ml 480 ml 300 ml 350 ml Output Total 250 ml 650 ml 300 ml 341 ml Balance -200 ml -170 ml 0 ml 9 ml Intake Oral 50 ml 480 ml 300 ml 350 ml IV Total 0 ml 0 ml Output Urine Total 250 ml 650 ml 300 ml 340 ml Stool Total 1 ml # Bowel Movements 0 5 0 1 Result Diagram: 12/16/16 0916 12/16/16 0916 Imaging Last Impressions Chest X-Ray 12/15/16 0800 Signed Impressions: Service Date/Time: Thursday, December 15, 2016 08:00 - CONCLUSION: Stable chest x-ray with bibasilar opacity representing pleural effusions with associated volume loss and/or airspace consolidation. Jasper Head MD Renal Ultrasound 12/04/16 0000 Signed Impressions: Service Date/Time: November 17:52 - CONCLUSION: 1. Numerous cysts and chronic parenchymal disease of both kidneys. No evidence of obstructive uropathy or other acute abnormality. 2. Fuentes catheter present. Urinary bladder grossly unremarkable. 3. Cholelithiasis incidentally noted. Jasper Springer MD Lower Extremity Ultrasound 12/03/16 0000 Signed Impressions: Service Date/Time: Saturday, December 03, 2016 09:17 - CONCLUSION: Nonocclusive deep venous thrombus within the posterior tibial veins bilaterally. Galen Pierre MD Liver Ultrasound 12/02/16 0000 Signed Impressions: Service Date/Time: Friday, December 02, 2016 17:19 - CONCLUSION: 1. Common bile duct upper limits of normal caliber for a patient this age. No duct stone. 2. Several stones in the gallbladder measuring up to 14 mm in size. No evidence of acute cholecystitis Jasper Springer MD Chest CT 12/02/16 0000 Signed Impressions: Service Date/Time: Friday, December 02, 2016 10:46 - CONCLUSION: 1. Small bilateral pleural effusions with adjacent alveolar consolidations (right slightly worse than left) consistent with atelectasis and/or pneumonia. Clinical correlation is recommended. 2. Patchiness within the right upper lobe consistent with possible pneumonia. Clinical correlation is recommended. 3. Cardiomegaly, coronary artery calcifications and mitral annulus calcifications. 4. 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 5. Cholelithiasis. 6. Multiple simple and complex renal cysts bilaterally. 7. Degenerative changes and scoliosis of the thoracolumbar spine. Galen Pierre MD Head CT 12/01/16 8232 Signed Impressions: Service Date/Time: Friday, December 02, 2016 04:14 - CONCLUSION: Old infarction on the right and no acute process. Anuradha Anthony MD Objective Remarks GENERAL: This is a well-nourished, thin, well-developed patient, in no apparent distress. CARDIOVASCULAR: Regular rate and rhythm w RESPIRATORY: Diminished breath sounds bilaterally GASTROINTESTINAL: Abdomen soft, non-tender, nondistended. Normal active bowel sounds MUSCULOSKELETAL: Extremities without clubbing, cyanosis, trace edema NEURO: Alert & Oriented x2 to person, place, left upper extremity decreased hand bulldozer strength and overall 4/ 5 Generalized bilateral lower extremity weakness. A/P Problem List: (1) Acute respiratory failure with hypoxia and hypercapnia ICD Code: J96.01 Status: Acute (2) Chronic obstructive pulmonary disease with acute exacerbation ICD Code: J44.1 Status: Acute (3) Hypoalbuminemia ICD Code: E88.09 Status: Chronic Assessment and Plan Fibromyalgia with a history of History of right posterior frontal lobe CVA/ chronic benzodiazepine use/chronic opiate use - Xanax 0.25 mg every 8 hours PRN anxiety Neurontin 600 mill grams by mouth 3 times a day/home medication Acute Hypoxemic respiratory failure Extubated 12/07/16, history of COPD/CAP Continue Oxygen as needed to maintain Oxygen saturation over 92%; Pulmicort 0.5/2 one inhalation twice a day, Bronchodilator, mucolytic, Solu- Medrol 40 mg every [address] chest revealed bilateral lower lobe pneumonia/right upper lobe pneumonia , completing antibiotic regimen. export specialist is following- Dr. Cummings, at this time on non rebreather mask. Continue to wean O2 support as tolerated. full management, but the patient elected to continue Aggressive management. Palliative care consult has been requested. 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 overall blood pressure adequately controlled. Echocardiogram 10/06 revealed EF 60%. Left atrial dilatation. No regional wall motion abnormality. Echocardiogram 12/06 revealed EF 65-70%. Trace TR. Normal pulmonary pressures. Cholelithiasis/Hypoalbuminemia on Pepcid for GI prophylaxis, bowel regimen. CAP and completed antibiotics Aztreonam, Azithromycin, Flagyl , cultures negative, afebrile, Strep pneumonia and Legionella antigen negative. 12/02 - sputum - negative 12/01 - blood cultures 2 - no growth 12/01 - urine - negative Normocytic Anemia/chronic continue Iron sulfate Iron sulfate 325 mg 3 times a day. Hypothyroidism continue Hormonal replacement Bilateral posterior tibial nonocclusive DVT -xarelto Moderate Protein calorie malnutrition - Alb 2.3. Cachectic , muscle waisting. Supplement GI prophylaxis- on Pepcid DVT Protonix- Xarelto 20mg daily (home med) Palliative care services following assisting with advanced directives and designated healthcare surrogate and defining goals for this hospitalization. Transfer to the med surg floor . Consult PT /OT . Jaja Felix MD Dec 19, 2016 10:32
--- NOTE | 2016-12-19 19:26 | HHI.PR ---
Subjective Remarks 76 YOWf with Severe COPD, known to me from office has multiple admissions in the hosp Extubated 12/07 Appetite poor On Soft diet Apppeitie improving now, on PRB Family at BS Feels much better Objective Vital Signs Vital Signs Date Time Temp Pulse Resp B/P Pulse Ox O2 Delivery O2 Flow Rate FiO2 12/19/16 18:00 69 12/19/16 16:52 19 12/19/16 16:00 98.3 70 31 106/55 88 12/19/16 16:00 70 12/19/16 14:00 71 12/19/16 13:00 74 12/19/16 12:00 98.7 67 20 117/66 92 12/19/16 12:00 67 12/19/16 11:00 76 12/19/16 10:00 75 12/19/16 09:00 61 12/19/16 08:51 60 Partial Rebreather 15.00 60 12/19/16 08:00 98.5 61 39 152/77 91 12/19/16 08:00 61 12/19/16 07:00 Non-Rebreather 15.00 100 12/19/16 06:00 60 12/19/16 04:00 54 12/19/16 04:00 98.2 54 19 139/72 90 12/19/16 02:00 55 12/19/16 00:00 98.7 54 26 135/70 94 12/19/16 00:00 54 12/18/16 22:00 56 12/18/16 21:41 93 Partial Rebreather 15.00 12/18/16 20:50 94 Non-Rebreather 15.00 65 12/18/16 20:12 93 Partial Rebreather 14.00 12/18/16 20:00 66 12/18/16 20:00 97.8 66 40 124/66 93 I/O 12/18/16 12/18/16 12/18/16 12/19/16 12/19/16 12/19/16 07:00 15:00 23:00 07:00 15:00 23:00 Intake Total 50 ml 480 ml 300 ml 350 ml 400 ml Output Total 250 ml 650 ml 300 ml 341 ml 300 ml Balance -200 ml -170 ml 0 ml 9 ml 100 ml Intake Oral 50 ml 480 ml 300 ml 350 ml 400 ml IV Total 0 ml 0 ml 0 ml Output Urine Total 250 ml 650 ml 300 ml 340 ml 300 ml Stool Total 1 ml # Bowel Movements 0 5 0 1 0 Result Diagram: 12/16/1691512/16/16915 Objective Remarks GENERAL: MBMN Wf, on vent, sedated SKIN: Warm and dry. HEAD: Normocephalic. EYES: No scleral icterus. No injection or drainage. NECK: Supple, trachea midline. No JVD or lymphadenopathy. CARDIOVASCULAR: Regular rate and rhythm without murmurs, gallops, or rubs. RESPIRATORY: Breath sounds equal bilaterally. No accessory muscle use. GASTROINTESTINAL: Abdomen soft, non-tender, nondistended. MUSCULOSKELETAL: No cyanosis, or edema. BACK: Nontender without obvious deformity. No CVA tenderness. A/P Assessment and Plan VDRF, s/p extubation Severe COPD Pneumonia AF CHF Pleural effusion PLAN: Aerosol nebs Cont Abx Xarelto 20 mg daily Diurease Will need trilogy for home use 02 with PRB, keep sat 88-92% CPAP10/5 at night and PRN DW Family Being transferred to 7th floor Arvind Cummings MD Dec 19, 2016 19:26
[2016-12-19] MEDS: POLYETHYLENE GLYCOL 17 GM PKG PO SCH (21:00)
[2016-12-20] VITALS (7 sets, daily range): BP systolic 123–161; BP diastolic 58–78; PULSE 57–86; RESP 18–22; TEMP 96.2–97.6; O2SAT 90–99
[2016-12-20] MEDS: CHLORHEXIDINE GLUCONATE 2 % 1 PACK (2 CLOTHS) TOP SCH (04:00)
[2016-12-20] MEDS: methylPREDNISolone SOD SUCC 40 MG/1 ML VIAL IV SCH ×4 (04:46→20:44)
[2016-12-20] MEDS: LEVOTHYROXINE SODIUM 25 MCG TAB PO SCH (04:46)
[2016-12-20] MEDS: METOCLOPRAMIDE HCL 10 MG/2 ML VIAL IV PUSH SCH ×4 (04:46→20:43)
[2016-12-20] MEDS: INSULIN NovoLIN REGULAR SUPPLEMENTAL SCALE SQ SCH ×3 (04:49→18:00)
[2016-12-20] MEDS: oxyCODONE/ACETAMINOPHEN 5 MG/325 MG TAB PO PRN ×2 (05:55→21:06)
[2016-12-20] MEDS: CHLORHEXIDINE 0.12% (ORAL KIT) 15 ML CUP MT SCH ×2 (07:50→20:00)
--- NOTE | 2016-12-20 07:52 | HHI.PR ---
Subjective Remarks Feels improving. With sob. Not much cough. No fever or chills. Feels tired. No wheezing. No n/v/d/c. Appetite not much improved but able to eat. Encouraged incentive spirometry and acapella Objective Vitals Vital Signs Date Time Temp Pulse Resp B/P Pulse Ox O2 Delivery O2 Flow Rate FiO2 12/20/16 04:00 96.2 61 18 149/78 99 12/20/16 00:00 96.5 61 19 125/76 97 12/19/16 20:00 96.8 66 18 118/69 98 12/19/16 20:00 Partial Non-Rebreather 10.00 60 12/19/16 20:00 98 Partial Rebreather 10.00 12/19/16 18:00 69 12/19/16 16:52 19 12/19/16 16:00 98.3 70 31 106/55 88 12/19/16 16:00 70 12/19/16 14:00 71 12/19/16 13:00 74 12/19/16 12:00 98.7 67 20 117/66 92 12/19/16 12:00 67 12/19/16 11:00 76 12/19/16 10:00 75 12/19/16 09:00 61 12/19/16 08:51 60 Partial Rebreather 15.00 60 12/19/16 08:00 98.5 61 39 152/77 91 12/19/16 08:00 61 I/O 12/19/16 12/19/16 12/19/16 12/20/16 12/20/16 12/20/16 07:00 15:00 23:00 07:00 15:00 23:00 Intake Total 350 ml 400 ml 480 ml 240 ml Output Total 341 ml 300 ml 150 ml 300 ml Balance 9 ml 100 ml 330 ml -60 ml Intake Oral 350 ml 400 ml 480 ml 240 ml IV Total 0 ml Output Urine Total 340 ml 300 ml 150 ml 300 ml Stool Total 1 ml # Bowel Movements 1 0 Result Diagram: 12/16/1616 12/16/1616 Imaging Last Impressions Chest X-Ray 12/15/16 0800 Signed Impressions: Service Date/Time: Thursday, December 15, 2016 08:00 - CONCLUSION: Stable chest x-ray with bibasilar opacity representing pleural effusions with associated volume loss and/or airspace consolidation. Jasper Head MD Renal Ultrasound 12/04/16 Signed Impressions: Service Date/Time: November 17:52 - CONCLUSION: 1. Numerous cysts and chronic parenchymal disease of both kidneys. No evidence of obstructive uropathy or other acute abnormality. 2. Fuentse catheter present. Urinary bladder grossly unremarkable. 3. Cholelithiasis incidentally noted. Jasper Springer MD Lower Extremity Ultrasound 12/03/16 Signed Impressions: Service Date/Time: Saturday, December 03, 2016 09:17 - CONCLUSION: Nonocclusive deep venous thrombus within the posterior tibial veins bilaterally. Galen Pierre MD Liver Ultrasound 12/02/16 Signed Impressions: Service Date/Time: Friday, December 02, 2016 17:19 - CONCLUSION: 1. Common bile duct upper limits of normal caliber for a patient this age. No duct stone. 2. Several stones in the gallbladder measuring up to 14 mm in size. No evidence of acute cholecystitis Jasper Springer MD Chest CT 12/02/16 Signed Impressions: Service Date/Time: Friday, December 02, 2016 10:46 - CONCLUSION: 1. Small bilateral pleural effusions with adjacent alveolar consolidations (right slightly worse than left) consistent with atelectasis and/or pneumonia. Clinical correlation is recommended. 2. Patchiness within the right upper lobe consistent with possible pneumonia. Clinical correlation is recommended. 3. Cardiomegaly, coronary artery calcifications and mitral annulus calcifications. 4. 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 5. Cholelithiasis. 6. Multiple simple and complex renal cysts bilaterally. 7. Degenerative changes and scoliosis of the thoracolumbar spine. 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 Anuradha Anthony MD Objective Remarks GENERAL: This is a well-nourished, thin, well-developed patient, in no apparent distress. CARDIOVASCULAR: Regular rate and rhythm w RESPIRATORY: Diminished breath sounds bilaterally, on NRM GASTROINTESTINAL: Abdomen soft, non-tender, nondistended. Normal active bowel sounds MUSCULOSKELETAL: Extremities without clubbing, cyanosis, trace edema NEURO: Alert & Oriented x2 to person, place, left upper extremity decreased floor hand strength and overall 4/ 5. Generalized bilateral lower extremity weakness. A/P Problem List: (1) Acute respiratory failure with hypoxia and hypercapnia ICD Code: J96.01 Status: Acute (2) Chronic obstructive pulmonary disease with acute exacerbation ICD Code: J44.1 Status: Acute (3) Hypoalbuminemia ICD Code: E88.09 Status: Chronic Assessment and Plan Fibromyalgia with a history of History of right posterior frontal lobe CVA/ chronic benzodiazepine use/chronic opiate use - Xanax 0.25 mg every 8 hours PRN anxiety Neurontin 600 mill grams by mouth 3 times a day/home medication Acute Hypoxemic respiratory failure Extubated 12/07/16, history of COPD/CAP Continue Oxygen as needed to maintain Oxygen saturation over 92%; Pulmicort 0.5/2 one inhalation twice a day, Bronchodilator, mucolytic, Solu- Medrol 40 mg every [address] chest revealed bilateral lower lobe pneumonia/right upper lobe pneumonia , completing antibiotic regimen. special effects specialist is following- Dr. Cummings, at this time on non rebreather mask. Continue to wean O2 support as tolerated. full management, but the patient elected to continue Aggressive management. Palliative care consult has been requested. 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 overall blood pressure adequately controlled. Echocardiogram 10/06 revealed EF 60%. Left atrial dilatation. No regional wall motion abnormality. Echocardiogram 12/06 revealed EF 65-70%. Trace TR. Normal pulmonary pressures. Cholelithiasis/Hypoalbuminemia on Pepcid for GI prophylaxis, bowel regimen. CAP and completed antibiotics Aztreonam, Azithromycin, Flagyl , cultures negative, afebrile, Strep pneumonia and Legionella antigen negative. 12/02 - sputum - negative 12/01 - blood cultures 2 - no growth 12/01 - urine - negative Normocytic Anemia/chronic continue Iron sulfate Iron sulfate 325 mg 3 times a day. Hypothyroidism continue Hormonal replacement Bilateral posterior tibial nonocclusive DVT -xarelto Moderate Protein calorie malnutrition - Alb 2.3. Cachectic , muscle waisting. Supplement Physican deconditioning: Consult PT/OT GI prophylaxis- on Pepcid DVT Protonix- Xarelto 20mg daily (home med) Palliative care services following assisting with advanced directives and designated healthcare surrogate and defining goals for this hospitalization. DC plan : pending improvement and clearance by consultants. Also case management consulted for DC plan. Jaja Felix MD Dec 20, 2016 07:52
[2016-12-20] MEDS: RESP: BUDESONIDE 0.5 MG/2 ML NEB NEB SCH ×2 (08:00→20:00)
[2016-12-20] MEDS: RIVAROXABAN 20 MG TAB PO SCH (09:05)
[2016-12-20] MEDS: FERROUS SULFATE 300 MG /5ML UDC PO SCH ×2 (09:05→20:42)
[2016-12-20] MEDS: SODIUM CHLORIDE 0.9% FLUSH 10 ML FLUSH SCH ×2 (09:05→23:53)
[2016-12-20] MEDS: LACTOBACILLUS ACIDOPHILUS TAB PO SCH ×2 (09:05→20:42)
[2016-12-20] MEDS: amLODIPine BESYLATE 5 MG TAB PO SCH (09:05)
[2016-12-20] MEDS: METOPROLOL TARTRATE 25 MG TAB PO SCH ×2 (09:05→20:47)
[2016-12-20] MEDS: DOCUSATE SODIUM 50 MG/SENNA 8.6 MG TAB PO SCH ×2 (09:06→20:43)
[2016-12-20] MEDS: GABAPENTIN 300 MG CAP PO SCH ×3 (09:06→18:42)
[2016-12-20] MEDS: FUROSEMIDE 20 MG TAB PO SCH (09:06)
[2016-12-20] MEDS: CYCLOBENZAPRINE HCL 10 MG TAB PO SCH ×3 (09:06→18:42)
[2016-12-20] MEDS: FAMOTIDINE 20 MG TAB NG SCH (09:06)
[2016-12-20] MEDS ORDERED: ACETAMINOPHEN 500 MG CPLT PO PRN (13:00)
--- NOTE | 2016-12-20 15:43 | HHI.PR ---
Subjective Remarks 76 YOWf with Severe COPD, known to me from office has multiple admissions in the hosp Extubated 12/07 Appetite poor On Soft diet Apppeitie improving now, on PRB Feels much better Desaturates on taking mask off Objective Vital Signs Vital Signs Date Time Temp Pulse Resp B/P Pulse Ox O2 Delivery O2 Flow Rate FiO2 12/20/16 12:00 97.0 60 18 123/58 94 12/20/16 08:00 57 12/20/16 08:00 97.4 60 22 161/74 99 12/20/16 08:00 Non-Rebreather 10.00 12/20/16 04:00 96.2 61 18 149/78 99 12/20/16 00:00 96.5 61 19 125/76 97 12/19/16 20:00 96.8 66 18 118/69 98 12/19/16 20:00 Partial Non-Rebreather 10.00 60 12/19/16 20:00 98 Partial Rebreather 10.00 12/19/16 18:00 69 12/19/16 16:52 19 12/19/16 16:00 98.3 70 31 106/55 88 12/19/16 16:00 70 I/O 12/19/16 12/19/16 12/19/16 12/20/16 12/20/16 12/20/16 07:00 15:00 23:00 07:00 15:00 23:00 Intake Total 350 ml 400 ml 480 ml 240 ml Output Total 341 ml 300 ml 150 ml 300 ml Balance 9 ml 100 ml 330 ml -60 ml Intake Oral 350 ml 400 ml 480 ml 240 ml IV Total 0 ml Output Urine Total 340 ml 300 ml 150 ml 300 ml Stool Total 1 ml # Bowel Movements 1 0 Result Diagram: 12/16/1691512/16/16915 Objective Remarks GENERAL: MBMN Wf, on vent, sedated SKIN: Warm and dry. HEAD: Normocephalic. EYES: No scleral icterus. No injection or drainage. NECK: Supple, trachea midline. No JVD or lymphadenopathy. CARDIOVASCULAR: Regular rate and rhythm without murmurs, gallops, or rubs. RESPIRATORY: Breath sounds equal bilaterally. No accessory muscle use. GASTROINTESTINAL: Abdomen soft, non-tender, nondistended. MUSCULOSKELETAL: No cyanosis, or edema. BACK: Nontender without obvious deformity. No CVA tenderness. A/P Assessment and Plan VDRF, s/p extubation Severe COPD Pneumonia AF CHF Pleural effusion PLAN: Aerosol nebs Cont Abx Xarelto 20 mg daily Diurease Will need trilogy for home use 02 with PRB, keep sat 88-92% CPAP10/5 at night and PRN Arvind Cummings MD Dec 20, 2016 15:43
[2016-12-20] MEDS: POLYETHYLENE GLYCOL 17 GM PKG PO SCH (20:44)
[2016-12-21] VITALS (12 sets, daily range): BP systolic 121–156; BP diastolic 64–81; PULSE 53–80; RESP 18–20; TEMP 97.4–98.4; O2SAT 88–100
[2016-12-21] MEDS: CHLORHEXIDINE GLUCONATE 2 % 1 PACK (2 CLOTHS) TOP SCH (04:00)
[2016-12-21] MEDS: RESP: ALBUTEROL 2.5 MG/IPRATROPIUM 0.5 MG NEB (PRN) NEB ×2 (04:40→09:30)
[2016-12-21] MEDS: INSULIN NovoLIN REGULAR SUPPLEMENTAL SCALE SQ SCH ×4 (06:00→17:43)
[2016-12-21] MEDS: LEVOTHYROXINE SODIUM 25 MCG TAB PO SCH (06:25)
[2016-12-21] MEDS: methylPREDNISolone SOD SUCC 40 MG/1 ML VIAL IV SCH ×3 (06:28→20:55)
[2016-12-21] MEDS: METOCLOPRAMIDE HCL 10 MG/2 ML VIAL IV PUSH SCH ×3 (06:34→20:51)
[2016-12-21] MEDS: CHLORHEXIDINE 0.12% (ORAL KIT) 15 ML CUP MT SCH ×2 (08:00→20:00)
--- NOTE | 2016-12-21 08:50 | HHI.PR ---
Subjective Remarks Patient says she wants nasal canula, and not the mask, however patient is dessating without mask. She complaints of cough, getting better. Wants to do more PT. Feels tired and deconditioned. No fever or chills. Objective Vitals Vital Signs Date Time Temp Pulse Resp B/P Pulse Ox O2 Delivery O2 Flow Rate FiO2 12/21/16 04:43 91 Partial Rebreather 11.00 12/21/16 04:11 18 12/21/16 04:00 97.9 62 18 156/80 95 12/21/16 00:00 97.4 53 18 137/70 99 12/20/16 22:10 16 12/20/16 20:55 86 12/20/16 20:53 Partial Non-Rebreather 10.00 92 12/20/16 20:00 96.5 66 18 142/77 93 12/20/16 16:00 97.6 80 22 143/71 90 12/20/16 12:00 97.0 60 18 123/58 94 I/O 12/20/16 12/20/16 12/20/16 12/21/16 12/21/16 12/21/16 07:00 15:00 23:00 07:00 15:00 23:00 Intake Total 240 ml 1560 ml 240 ml Output Total 300 ml 1275 ml 250 ml Balance -60 ml 285 ml -10 ml Intake Oral 240 ml 1560 ml 240 ml Output Urine Total 300 ml 1275 ml 250 ml # Bowel Movements 1 Objective Remarks GENERAL: This is a well-nourished, thin, well-developed patient, in no apparent distress. CARDIOVASCULAR: Regular rate and rhythm w RESPIRATORY: Diminished breath sounds bilaterally, on NRM GASTROINTESTINAL: Abdomen soft, non-tender, nondistended. Normal active bowel sounds MUSCULOSKELETAL: Extremities without clubbing, cyanosis, trace edema NEURO: Alert & Oriented x2 to person, place, left upper extremity decreased engineering intern strength and overall 4/ 5. Generalized bilateral lower extremity weakness. A/P Problem List: (1) Acute respiratory failure with hypoxia and hypercapnia ICD Code: J96.01 Status: Acute (2) Chronic obstructive pulmonary disease with acute exacerbation ICD Code: J44.1 Status: Acute (3) Hypoalbuminemia ICD Code: E88.09 Status: Chronic Assessment and Plan Fibromyalgia with a history of History of right posterior frontal lobe CVA/ chronic benzodiazepine use/chronic opiate use - Xanax 0.25 mg every 8 hours PRN anxiety Neurontin 600 mill grams by mouth 3 times a day/home medication Acute Hypoxemic respiratory failure Extubated 12/07/16, history of COPD/CAP Continue Oxygen as needed to maintain Oxygen saturation over 92%; Pulmicort 0.5/2 one inhalation twice a day, Bronchodilator, mucolytic, Solu- Medrol 40 mg every [address] chest revealed bilateral lower lobe pneumonia/right upper lobe pneumonia , completing antibiotic regimen. security assurance specialist is following- Dr. Cummings, at this time on non rebreather mask. Continue to wean O2 support as tolerated. full management, but the patient elected to continue Aggressive management. Palliative care consult has been requested. 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 overall blood pressure adequately controlled. Echocardiogram 10/06 revealed EF 60%. Left atrial dilatation. No regional wall motion abnormality. Echocardiogram 12/06 revealed EF 65-70%. Trace TR. Normal pulmonary pressures. Cholelithiasis/Hypoalbuminemia on Pepcid for GI prophylaxis, bowel regimen. CAP and completed antibiotics Aztreonam, Azithromycin, Flagyl , cultures negative, afebrile, Strep pneumonia and Legionella antigen negative. 12/02 - sputum - negative 12/01 - blood cultures 2 - no growth 12/01 - urine - negative Normocytic Anemia/chronic continue Iron sulfate Iron sulfate 325 mg 3 times a day. Hypothyroidism continue Hormonal replacement Bilateral posterior tibial nonocclusive DVT -xarelto Moderate Protein calorie malnutrition - Alb 2.3. Cachectic , muscle waisting. Supplement Physican deconditioning: Consult PT/OT GI prophylaxis- on Pepcid DVT Protonix- Xarelto 20mg daily (home med) Palliative care services following assisting with advanced directives and designated healthcare surrogate and defining goals for this hospitalization. DC plan : pending improvement and clearance by consultants. Also case management consulted for DC plan. Jaja Felix MD Dec 21, 2016 08:50
[2016-12-21] MEDS: CYCLOBENZAPRINE HCL 10 MG TAB PO SCH ×3 (09:54→18:19)
[2016-12-21] MEDS: FUROSEMIDE 20 MG TAB PO SCH (09:54)
[2016-12-21] MEDS: DOCUSATE SODIUM 50 MG/SENNA 8.6 MG TAB PO SCH ×2 (09:54→21:00)
[2016-12-21] MEDS: amLODIPine BESYLATE 5 MG TAB PO SCH (09:54)
[2016-12-21] MEDS: GABAPENTIN 300 MG CAP PO SCH ×3 (09:54→18:19)
[2016-12-21] MEDS: METOPROLOL TARTRATE 25 MG TAB PO SCH ×2 (09:54→20:50)
[2016-12-21] MEDS: FERROUS SULFATE 300 MG /5ML UDC PO SCH ×2 (09:54→20:50)
[2016-12-21] MEDS: LACTOBACILLUS ACIDOPHILUS TAB PO SCH ×2 (09:55→20:49)
[2016-12-21] MEDS: RIVAROXABAN 20 MG TAB PO SCH (09:55)
[2016-12-21] MEDS: FAMOTIDINE 20 MG TAB NG SCH (09:55)
[2016-12-21] MEDS: ALPRAZolam 0.25 MG TAB PO PRN (10:00)
[2016-12-21] MEDS: SODIUM CHLORIDE 0.9% FLUSH 10 ML FLUSH SCH ×2 (10:01→21:00)
[2016-12-21] MEDS: oxyCODONE/ACETAMINOPHEN 5 MG/325 MG TAB PO PRN ×2 (14:38→20:50)
--- NOTE | 2016-12-21 15:51 | HHI.PR ---
Subjective Remarks 76 YOWf with Severe COPD, known to me from office has multiple admissions in the hosp Extubated 12/07 Appetite poor On Soft diet Apppeitie improving Feels much better weaned to 4LNC Objective Vital Signs Vital Signs Date Time Temp Pulse Resp B/P Pulse Ox O2 Delivery O2 Flow Rate FiO2 12/21/16 12:20 60 12/21/16 12:00 98.0 64 20 135/69 88 12/21/16 10:08 Nasal Cannula 4.00 12/21/16 09:32 100 Partial Rebreather 12/21/16 08:03 64 12/21/16 08:00 98.3 66 18 151/81 95 12/21/16 04:43 91 Partial Rebreather 11.00 12/21/16 04:11 18 12/21/16 04:00 97.9 62 18 156/80 95 12/21/16 00:00 97.4 53 18 137/70 99 12/20/16 22:10 16 12/20/16 20:55 86 12/20/16 20:53 Partial Non-Rebreather 10.00 92 12/20/16 20:00 96.5 66 18 142/77 93 12/20/16 16:00 97.6 80 22 143/71 90 I/O 12/20/16 12/20/16 12/20/16 12/21/16 12/21/16 12/21/16 07:00 15:00 23:00 07:00 15:00 23:00 Intake Total 240 ml 1560 ml 240 ml Output Total 300 ml 1275 ml 250 ml Balance -60 ml 285 ml -10 ml Intake Oral 240 ml 1560 ml 240 ml Output Urine Total 300 ml 1275 ml 250 ml # Bowel Movements 1 Objective Remarks GENERAL: MBMN Wf, on vent, sedated SKIN: Warm and dry. HEAD: Normocephalic. EYES: No scleral icterus. No injection or drainage. NECK: Supple, trachea midline. No JVD or lymphadenopathy. CARDIOVASCULAR: Regular rate and rhythm without murmurs, gallops, or rubs. RESPIRATORY: Breath sounds equal bilaterally. No accessory muscle use. GASTROINTESTINAL: Abdomen soft, non-tender, nondistended. MUSCULOSKELETAL: No cyanosis, or edema. BACK: Nontender without obvious deformity. No CVA tenderness. A/P Assessment and Plan VDRF, s/p extubation Severe COPD Pneumonia AF CHF Pleural effusion PLAN: Aerosol nebs Cont Abx Xarelto 20 mg daily Diurease Will need trilogy for home use Supplement 00 to keep sat 88-92% CPAP prn Arvind Cummings MD Dec 21, 2016 15:51
[2016-12-21] MEDS: RESP: BUDESONIDE 0.5 MG/2 ML NEB NEB SCH (20:58)
[2016-12-21] MEDS: POLYETHYLENE GLYCOL 17 GM PKG PO SCH (21:00)
[2016-12-22] VITALS (10 sets, daily range): BP systolic 126–162; BP diastolic 68–76; PULSE 53–68; RESP 18–24; TEMP 96.6–98.7; O2SAT 88–96
[2016-12-22] MEDS: CHLORHEXIDINE GLUCONATE 2 % 1 PACK (2 CLOTHS) TOP SCH (03:55)
[2016-12-22] MEDS: RESP: ALBUTEROL 2.5 MG/IPRATROPIUM 0.5 MG NEB (PRN) NEB (03:58)
[2016-12-22] MEDS: LEVOTHYROXINE SODIUM 25 MCG TAB PO SCH (05:07)
[2016-12-22] MEDS: METOCLOPRAMIDE HCL 10 MG/2 ML VIAL IV PUSH SCH ×2 (05:09→13:17)
[2016-12-22] MEDS: methylPREDNISolone SOD SUCC 40 MG/1 ML VIAL IV SCH ×2 (05:10→13:17)
[2016-12-22] MEDS: INSULIN NovoLIN REGULAR SUPPLEMENTAL SCALE SQ SCH ×4 (05:17→18:19)
[2016-12-22] MEDS: oxyCODONE/ACETAMINOPHEN 5 MG/325 MG TAB PO PRN ×2 (05:19→15:23)
[2016-12-22] MEDS: CHLORHEXIDINE 0.12% (ORAL KIT) 15 ML CUP MT SCH ×2 (08:00→20:00)
[2016-12-22] MEDS: FUROSEMIDE 20 MG TAB PO SCH (08:50)
[2016-12-22] MEDS: LACTOBACILLUS ACIDOPHILUS TAB PO SCH (08:50)
[2016-12-22] MEDS: amLODIPine BESYLATE 5 MG TAB PO SCH (08:50)
[2016-12-22] MEDS: RIVAROXABAN 20 MG TAB PO SCH (08:50)
[2016-12-22] MEDS: GABAPENTIN 300 MG CAP PO SCH ×3 (08:50→18:14)
[2016-12-22] MEDS: CYCLOBENZAPRINE HCL 10 MG TAB PO SCH ×3 (08:50→18:14)
[2016-12-22] MEDS: FERROUS SULFATE 300 MG /5ML UDC PO SCH (08:50)
[2016-12-22] MEDS: METOPROLOL TARTRATE 25 MG TAB PO SCH (08:50)
[2016-12-22] MEDS: SODIUM CHLORIDE 0.9% FLUSH 10 ML FLUSH SCH (08:51)
[2016-12-22] MEDS: DOCUSATE SODIUM 50 MG/SENNA 8.6 MG TAB PO SCH ×2 (08:51→21:00)
[2016-12-22] MEDS: FAMOTIDINE 20 MG TAB NG SCH (08:51)
--- NOTE | 2016-12-22 09:10 | HHI.PR ---
Subjective Remarks In bed, says she feels very tired. She is currently on 4L by ID. Sxcant cough, feels congested. No wheezing. Denies chest pain. She is not eating much,. has decreased appetite. No n/v/d/c. Objective Vitals Vital Signs Date Time Temp Pulse Resp B/P Pulse Ox O2 Delivery O2 Flow Rate FiO2 12/22/16 08:56 Nasal Cannula 4.00 12/22/16 08:49 97.5 68 20 162/73 94 12/22/16 06:41 16 12/22/16 04:00 97.2 58 20 144/74 88 12/22/16 00:00 98.7 61 20 153/76 89 12/21/16 21:37 80 12/21/16 21:00 88 Nasal Cannula 5.00 12/21/16 20:00 98.4 76 19 121/64 88 12/21/16 16:00 98.0 67 20 137/80 89 12/21/16 12:20 60 12/21/16 12:00 98.0 64 20 135/69 88 12/21/16 10:08 Nasal Cannula 4.00 12/21/16 09:32 100 Partial Rebreather I/O 12/21/16 12/21/16 12/21/16 12/22/16 12/22/16 12/22/16 07:00 15:00 23:00 07:00 15:00 23:00 Intake Total 240 ml 1080 ml 480 ml Output Total 250 ml 1100 ml 300 ml Balance -10 ml -20 ml 180 ml Intake Oral 240 ml 1080 ml 480 ml Output Urine Total 250 ml 1100 ml 300 ml # Bowel Movements 1 Objective Remarks GENERAL: This is a well-nourished, thin, well-developed patient, in no apparent distress. CARDIOVASCULAR: Regular rate and rhythm w RESPIRATORY: Diminished breath sounds bilaterally, on NRM GASTROINTESTINAL: Abdomen soft, non-tender, nondistended. Normal active bowel sounds MUSCULOSKELETAL: Extremities without clubbing, cyanosis, trace edema NEURO: Alert & Oriented x2 to person, place, left upper extremity decreased sign builder strength and overall 4/ 5. Generalized bilateral lower extremity weakness. A/P Problem List: (1) Acute respiratory failure with hypoxia and hypercapnia ICD Code: J96.01 Status: Acute (2) Chronic obstructive pulmonary disease with acute exacerbation ICD Code: J44.1 Status: Acute (3) Hypoalbuminemia ICD Code: E88.09 Status: Chronic Assessment and Plan Fibromyalgia with a history of History of right posterior frontal lobe CVA/ chronic benzodiazepine use/chronic opiate use - Xanax 0.25 mg every 8 hours PRN anxiety Neurontin 600 mill grams by mouth 3 times a day/home medication Acute Hypoxemic respiratory failure Extubated 12/07/16, history of COPD/CAP Continue Oxygen as needed to maintain Oxygen saturation over 92%; Pulmicort 0.5/2 one inhalation twice a day, Bronchodilator, mucolytic, Solu- Medrol 40 mg every [address] chest revealed bilateral lower lobe pneumonia/right upper lobe pneumonia , completing antibiotic regimen. web marketing specialist is following- Dr. Cummings, at this time on non rebreather mask. Continue to wean O2 support as tolerated. full management, but the patient elected to continue Aggressive management. Palliative care consult has been requested. 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 overall blood pressure adequately controlled. Echocardiogram 10/06 revealed EF 60%. Left atrial dilatation. No regional wall motion abnormality. Echocardiogram 12/06 revealed EF 65-70%. Trace TR. Normal pulmonary pressures. Cholelithiasis/Hypoalbuminemia on Pepcid for GI prophylaxis, bowel regimen. CAP and completed antibiotics Aztreonam, Azithromycin, Flagyl , cultures negative, afebrile, Strep pneumonia and Legionella antigen negative. 12/02 - sputum - negative 12/01 - blood cultures 2 - no growth 12/01 - urine - negative Normocytic Anemia/chronic continue Iron sulfate Iron sulfate 325 mg 3 times a day. Hypothyroidism continue Hormonal replacement Bilateral posterior tibial nonocclusive DVT -xarelto Moderate Protein calorie malnutrition - Alb 2.3. Cachectic , muscle waisting. Supplement Physican deconditioning: Consult PT/OT GI prophylaxis- on Pepcid DVT Protonix- Xarelto 20mg daily (home med) Palliative care services following assisting with advanced directives and designated healthcare surrogate and defining goals for this hospitalization. DC plan : pending improvement and clearance by consultants. Also case management consulted for DC plan. Jaja Fleix MD Dec 22, 2016 09:10
[2016-12-22] MEDS: RESP: BUDESONIDE 0.5 MG/2 ML NEB NEB SCH ×2 (09:32→19:48)
[2016-12-22] MEDS: ONDANSETRON HCL 4 MG/2 ML VIAL IV PRN (09:52)
[2016-12-22] MEDS: ALPRAZolam 0.25 MG TAB PO PRN (09:54)
--- NOTE | 2016-12-22 20:06 | HHI.PR ---
Subjective Remarks 76 YOWf with Severe COPD, known to me from office has multiple admissions in the hosp Extubated 12/07 On Soft diet Apppeitie improving weaned to 4LNC less sob, over all feels better Objective Vital Signs Vital Signs Date Time Temp Pulse Resp B/P Pulse Ox O2 Delivery O2 Flow Rate FiO2 12/22/16 19:48 96 Nasal Cannula 5.00 12/22/16 16:56 97.3 53 21 126/75 89 12/22/16 16:48 53 12/22/16 12:00 98.0 56 24 149/68 88 12/22/16 11:29 67 12/22/16 09:32 Nasal Cannula 5.00 12/22/16 09:16 68 12/22/16 08:56 Nasal Cannula 4.00 12/22/16 08:49 97.5 68 20 162/73 94 12/22/16 06:41 16 12/22/16 04:00 97.2 58 20 144/74 88 12/22/16 00:00 98.7 61 20 153/76 89 12/21/16 21:37 80 12/21/16 21:00 88 Nasal Cannula 5.00 I/O 12/21/16 12/21/16 12/21/16 12/22/16 12/22/16 12/22/16 07:00 15:00 23:00 07:00 15:00 23:00 Intake Total 240 ml 1080 ml 480 ml 600 ml Output Total 250 ml 1100 ml 300 ml 700 ml Balance -10 ml -20 ml 180 ml -100 ml Intake Oral 240 ml 1080 ml 480 ml 600 ml Output Urine Total 250 ml 1100 ml 300 ml 700 ml # Bowel Movements 1 Objective Remarks GENERAL: MBMN Wf, on vent, sedated SKIN: Warm and dry. HEAD: Normocephalic. EYES: No scleral icterus. No injection or drainage. NECK: Supple, trachea midline. No JVD or lymphadenopathy. CARDIOVASCULAR: Regular rate and rhythm without murmurs, gallops, or rubs. RESPIRATORY: Breath sounds equal bilaterally. No accessory muscle use. GASTROINTESTINAL: Abdomen soft, non-tender, nondistended. MUSCULOSKELETAL: No cyanosis, or edema. BACK: Nontender without obvious deformity. No CVA tenderness. A/P Assessment and Plan VDRF, s/p extubation Severe COPD Pneumonia AF CHF Pleural effusion PLAN: Aerosol nebs Cont Abx Xarelto 20 mg daily Diurease Will need trilogy for home use Supplement 02 to keep sat 88-92% CPAP prn Arvind Cummings MD Dec 22, 2016 20:06
[2016-12-22] MEDS: POLYETHYLENE GLYCOL 17 GM PKG PO SCH (21:00)
[2016-12-23] VITALS (14 sets, daily range): BP systolic 114–165; BP diastolic 59–73; PULSE 57–80; RESP 18–22; TEMP 96.4–98.3; O2SAT 85–97
[2016-12-23] MEDS: ALPRAZolam 0.25 MG TAB PO PRN (03:14)
[2016-12-23] MEDS: FERROUS SULFATE 300 MG /5ML UDC PO SCH ×3 (03:15→22:32)
[2016-12-23] MEDS: METOCLOPRAMIDE HCL 10 MG/2 ML VIAL IV PUSH SCH ×4 (03:15→22:34)
[2016-12-23] MEDS: LACTOBACILLUS ACIDOPHILUS TAB PO SCH ×3 (03:15→22:31)
[2016-12-23] MEDS: METOPROLOL TARTRATE 25 MG TAB PO SCH ×3 (03:15→22:31)
[2016-12-23] MEDS: SODIUM CHLORIDE 0.9% FLUSH 10 ML FLUSH SCH ×3 (03:16→22:35)
[2016-12-23] MEDS: methylPREDNISolone SOD SUCC 40 MG/1 ML VIAL IV SCH ×4 (03:16→22:33)
[2016-12-23] MEDS: CHLORHEXIDINE GLUCONATE 2 % 1 PACK (2 CLOTHS) TOP SCH (03:28)
[2016-12-23] MEDS: ONDANSETRON HCL 4 MG/2 ML VIAL IV PRN (04:22)
[2016-12-23] MEDS: LEVOTHYROXINE SODIUM 25 MCG TAB PO SCH (05:29)
[2016-12-23] MEDS: INSULIN NovoLIN REGULAR SUPPLEMENTAL SCALE SQ SCH ×4 (05:33→17:31)
[2016-12-23] MEDS: RESP: ALBUTEROL 2.5 MG/IPRATROPIUM 0.5 MG NEB (PRN) NEB ×3 (06:22→13:14)
[2016-12-23] MEDS: CHLORHEXIDINE 0.12% (ORAL KIT) 15 ML CUP MT SCH ×2 (08:00→20:00)
[2016-12-23] MEDS: FAMOTIDINE 20 MG TAB NG SCH (08:20)
[2016-12-23] MEDS: GABAPENTIN 300 MG CAP PO SCH ×3 (08:20→17:29)
[2016-12-23] MEDS: amLODIPine BESYLATE 5 MG TAB PO SCH (08:21)
[2016-12-23] MEDS: DOCUSATE SODIUM 50 MG/SENNA 8.6 MG TAB PO SCH ×2 (08:21→21:00)
[2016-12-23] MEDS: RIVAROXABAN 20 MG TAB PO SCH (08:21)
[2016-12-23] MEDS: CYCLOBENZAPRINE HCL 10 MG TAB PO SCH ×3 (08:21→17:29)
[2016-12-23] MEDS: FUROSEMIDE 20 MG TAB PO SCH (08:21)
--- NOTE | 2016-12-23 11:19 | HHI.PR ---
Subjective Remarks Noted desatting in mid 70s while on 4L NC, patient was placed back on NRM. Patient feels sob. She has some chest congestion. Not much cough. Wheezing at times. No n/v/d/c. Doesn't have much appetite however says she is eating fairly well. No fever or chills. Objective Vitals Vital Signs Date Time Temp Pulse Resp B/P Pulse Ox O2 Delivery O2 Flow Rate FiO2 12/23/16 08:38 91 Nasal Cannula 5.00 12/23/16 08:35 91 Nasal Cannula 4.00 12/23/16 08:26 96 12/23/16 08:09 98.2 58 22 139/65 85 12/23/16 07:53 60 12/23/16 07:50 97.4 64 20 165/73 88 12/23/16 04:00 97.3 64 18 127/69 92 12/23/16 00:00 97.4 67 18 135/71 91 12/22/16 21:30 Nasal Cannula 4.00 92 12/22/16 20:00 96.6 62 18 129/68 90 12/22/16 19:48 96 Nasal Cannula 5.00 12/22/16 16:56 97.3 53 21 126/75 89 12/22/16 16:48 53 12/22/16 12:00 98.0 56 24 149/68 88 12/22/16 11:29 67 I/O 12/22/16 12/22/16 12/22/16 12/23/16 12/23/16 12/23/16 06:59 14:59 22:59 06:59 14:59 22:59 Intake Total 480 ml 600 ml 240 ml 120 ml Output Total 300 ml 700 ml 600 ml 850 ml 750 ml Balance 180 ml -100 ml -360 ml -730 ml -750 ml Intake Oral 480 ml 600 ml 240 ml 120 ml Output Urine Total 300 ml 700 ml 600 ml 850 ml 750 ml # Bowel Movements 0 0 Imaging Last Impressions Chest X-Ray 12/15/16 0800 Signed Impressions: Service Date/Time: Thursday, December 15, 2016 08:00 - CONCLUSION: Stable chest x-ray with bibasilar opacity representing pleural effusions with associated volume loss and/or airspace consolidation. Jasper Head MD Renal Ultrasound 12/04/16 0000 Signed Impressions: Service Date/Time: November 17:52 - CONCLUSION: 1. Numerous cysts and chronic parenchymal disease of both kidneys. No evidence of obstructive uropathy or other acute abnormality. 2. Fuentes catheter present. Urinary bladder grossly unremarkable. 3. Cholelithiasis incidentally noted. Jasper Springer MD Lower Extremity Ultrasound 12/03/16 0000 Signed Impressions: Service Date/Time: Saturday, December 03, 2016 09:17 - CONCLUSION: Nonocclusive deep venous thrombus within the posterior tibial veins bilaterally. Galen Pierre MD Liver Ultrasound 12/02/16 0000 Signed Impressions: Service Date/Time: Friday, December 02, 2016 17:19 - CONCLUSION: 1. Common bile duct upper limits of normal caliber for a patient this age. No duct stone. 2. Several stones in the gallbladder measuring up to 14 mm in size. No evidence of acute cholecystitis Jasper Springer MD Chest CT 12/02/16 0000 Signed Impressions: Service Date/Time: Friday, December 02, 2016 10:46 - CONCLUSION: 1. Small bilateral pleural effusions with adjacent alveolar consolidations (right slightly worse than left) consistent with atelectasis and/or pneumonia. Clinical correlation is recommended. 2. Patchiness within the right upper lobe consistent with possible pneumonia. Clinical correlation is recommended. 3. Cardiomegaly, coronary artery calcifications and mitral annulus calcifications. 4. 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 5. Cholelithiasis. 6. Multiple simple and complex renal cysts bilaterally. 7. Degenerative changes and scoliosis of the thoracolumbar spine. Galen Pierre MD Head CT 12/01/16 2748 Signed Impressions: Service Date/Time: Friday, December 02, 2016 04:14 - CONCLUSION: Old infarction on the right and no acute process. Anuradha Anthony MD Objective Remarks GENERAL: This is a well-nourished, thin, well-developed patient, in no apparent distress. CARDIOVASCULAR: Regular rate and rhythm w RESPIRATORY: Diminished breath sounds bilaterally, on NRM GASTROINTESTINAL: Abdomen soft, non-tender, nondistended. Normal active bowel sounds MUSCULOSKELETAL: Extremities without clubbing, cyanosis, trace edema NEURO: Alert & Oriented x2 to person, place, left upper extremity decreased almond huller strength and overall / . Generalized bilateral lower extremity weakness. A/P Problem List: (1) Acute respiratory failure with hypoxia and hypercapnia ICD Code: J96.01 Status: Acute (2) Chronic obstructive pulmonary disease with acute exacerbation ICD Code: J44.1 Status: Acute (3) Hypoalbuminemia ICD Code: E88.09 Status: Chronic Assessment and Plan Fibromyalgia with a history of History of right posterior frontal lobe CVA/ chronic benzodiazepine use/chronic opiate use - Xanax 0.25 mg every 8 hours PRN anxiety Neurontin 600 mill grams by mouth 3 times a day/home medication Acute Hypoxemic respiratory failure Extubated 12/07/16, history of COPD/CAP Continue Oxygen as needed to maintain Oxygen saturation over 92%; Pulmicort 0.5/2 one inhalation twice a day, Bronchodilator, mucolytic, Solu- Medrol 40 mg every 12 hours, continue to taper as tolerated CT chest revealed bilateral lower lobe pneumonia/right upper lobe pneumonia , completing antibiotic regimen. regional telecommunications specialist is following- Dr. Cummings, at this time on non rebreather mask. Continue to wean O2 support as tolerated. full management, but the patient elected to continue Aggressive management. Palliative care consult has been requested. 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 overall blood pressure adequately controlled. Echocardiogram 10/06 revealed EF 60%. Left atrial dilatation. No regional wall motion abnormality. Echocardiogram 12/06 revealed EF 65-70%. Trace TR. Normal pulmonary pressures. Cholelithiasis/Hypoalbuminemia on Pepcid for GI prophylaxis, bowel regimen. CAP and completed antibiotics Aztreonam, Azithromycin, Flagyl , cultures negative, afebrile, Strep pneumonia and Legionella antigen negative. 12/02 - sputum - negative 12/01 - blood cultures 2 - no growth 12/01 - urine - negative Normocytic Anemia/chronic continue Iron sulfate Iron sulfate 325 mg 3 times a day. Hypothyroidism continue Hormonal replacement Bilateral posterior tibial nonocclusive DVT -xarelto Moderate Protein calorie malnutrition - Alb 2.3. Cachectic , muscle waisting. Supplement Physican deconditioning: Consult PT/OT GI prophylaxis- on Pepcid DVT Protonix- Xarelto 20mg daily (home med) Palliative care services following assisting with advanced directives and designated healthcare surrogate and defining goals for this hospitalization. DC plan : pending improvement and clearance by consultants. Also case management consulted for DC plan. Jaja Felix MD Dec 23, 2016 11:19
[2016-12-23] MEDS ORDERED: FURO20TA PO (11:23)
[2016-12-23] MEDS ORDERED: ALPR.25 PO (11:23)
[2016-12-23] MEDS ORDERED: OXYC1TAB36 PO (11:23)
[2016-12-23] MEDS ORDERED: METO25TA3 PO (11:23)
--- NOTE | 2016-12-23 11:25 | HHI.DS ---
Discharge Summary Admission Date Dec 02, 2016 at 00:01 Admitting Diagnosis PNA, Hypercarbia, Hypoxia, AMS (1) Acute respiratory failure with hypoxia and hypercapnia ICD Code: J96.01 (2) Chronic obstructive pulmonary disease with acute exacerbation ICD Code: J44.1 (3) Hypoalbuminemia ICD Code: E88.09 Brief History - From Admission 76-year-old female presents with a history of shortness of breath that started at home. She has also altered mental status. Normally patient is awake with eyes open and answers questions right away. EMS reports pt received a muscle relaxer just prior to their arrival. She has received albuterol x 2 en route with however her CO2 Climbing on the BiPAP machine and she became more lethargic with less responsiveness. She was intubated in the emergency department by ER attending for an airway protection. PE at Discharge GENERAL: This is a well-nourished, thin, well-developed patient, in no apparent distress. CARDIOVASCULAR: Regular rate and rhythm w RESPIRATORY: Diminished breath sounds bilaterally, on NRM GASTROINTESTINAL: Abdomen soft, non-tender, nondistended. Normal active bowel sounds MUSCULOSKELETAL: Extremities without clubbing, cyanosis, trace edema NEURO: Alert & Oriented x2 to person, place, left upper extremity decreased structural biologist strength and overall 4/ 5. Generalized bilateral lower extremity weakness. Pt Condition on Discharge: Stable Discharge Disposition: Discharge to SNF Discharge Instructions DIET: Follow Instructions for: Heart Healthy Diet Activities you can perform: Regular-No Restrictions Jaja Felix MD Dec 23, 2016 11:25
[2016-12-23 14:07] LABS: BLOOD GAS CARBOXYHEMOGLOBIN 1.8 % (0-4); BLOOD GAS HCO3 40 mmol/L (22-26); BLOOD GAS METHEMOGLOBIN 1.4 % (0-2); BLOOD GAS O2 HGB SATURATION 88 % (90-100); BLOOD GAS OXYGEN CONTENT 13.4 Vol % (12.0-20.0); BLOOD GAS PCO2 75 mmHg (38-42); BLOOD GAS PO2 62 mmHg (61-120); BLOOD GAS TOTAL HGB 10.7 G/DL (12.0-16.0); TEMP CORR TO 98.6
[2016-12-23 14:08] LABS: CRITICAL VALUE YES
[2016-12-23 14:09] LABS: DRAW SITE RT RADIAL; LITER FLOW 10 L/M; NUMBER OF ARTERIAL PUNCTURES 1; OXYGEN DEVICE PRB; STAT NO; ULNAR PULSE PRESENT
--- NOTE | 2016-12-23 15:19 | HHI.HCPN ---
Reason for visit a. To assist with evaluation and management of symptoms including: SOB, anxiety, debility. b. To assist medical decision maker(s) with: better understanding of current medical conditions; weighing benefits/burdens of medical treatment options; making medical treatment decisions. . Subjective/Interval History Patient seen and examined in room. Awakens easily. Patient was supposed to be DC earlier (? [facility]) today, however she had an episode of desaturation in the mid 70's. She is now on oxygen via partial NRB mask. In review of case management notes the SNF does not accept this level of oxygen. She denies any shortness of breath or symptoms related to desaturation episode. She reports "I feel fine." Afebrile. Vital signs stable. No recent labs. ABG done 1353 pH7.35, O2 sat 88, pCO2 75, pO2 62. Patient indicates she WOULD want reintubation should her condition decline. . Family/friend interactions No family at bedside. . Advance Directives Health Care Surrogate: Copy in medical record Advance Directive Specifics Date completed: 12/17/2016 . Health Care Surrogate(s): Patient's son (Ga Diaz) is designated as the primary health care surrogate decision maker. The patient has designated her daughter (Mattie Diaz) as the alternate health care surrogate decision maker. . Documented care wishes: Healthcare surrogate form was completed today (12/17/2016). Document was faxed to HIM to be scanned into the patient's EMR; copies were also placed and the patient's chart and left at patient's bedside. . Significant change in goals: FULL CODE. Patient desires reintubation if needed. Goals remain aggressive. Desires rehab placement upon DC, does not want to go back to [facility]. . Objective Vital Signs Date Time Temp Pulse Resp B/P Pulse Ox O2 Delivery O2 Flow Rate FiO2 12/23/16 13:14 92 Partial Rebreather 10.00 12/23/16 13:08 92 Partial Non-Rebreather 10.00 12/23/16 11:50 98.3 68 20 114/59 86 12/23/16 08:38 91 Nasal Cannula 5.00 12/23/16 08:35 91 Nasal Cannula 4.00 12/23/16 08:26 96 12/23/16 08:09 98.2 58 22 139/65 85 12/23/16 07:53 60 12/23/16 07:50 97.4 64 20 165/73 88 12/23/16 04:00 97.3 64 18 127/69 92 12/23/16 00:00 97.4 67 18 135/71 91 12/22/16 21:30 Nasal Cannula 4.00 92 12/22/16 20:00 96.6 62 18 129/68 90 12/22/16 19:48 96 Nasal Cannula 5.00 12/22/16 16:56 97.3 53 21 126/75 89 12/22/16 16:48 53 Intake & Output 12/23/16 12/23/16 07:00 19:00 Intake Total 360 ml Output Total 1450 ml 750 ml Balance -1090 ml -750 ml Intake Oral 360 ml Output Urine Total 1450 ml 750 ml # Bowel Movements 0 Physical Exam CONSTITUTIONAL/GENERAL: This is a chronically ill appearing, elderly female patient experiencing mild respiratory distress. TUBES/LINES/DRAINS: PIV 1 SKIN: Ashen color. Skin appears thin and fragile. No jaundice, rashes, or lesions. Skin temperature appropriate. Not diaphoretic. HEAD: Atraumatic. Normocephalic. EYES: PERRLA. No scleral icterus. No injection or drainage. Fundi not examined. ENT: Hearing grossly normal. Nose without bleeding or purulent drainage. NECK: Trachea midline. Supple, nontender. No palpable thyroid enlargement or nodularity. CARDIOVASCULAR: Regular rate and rhythm without murmurs, gallops, or rubs. No JVD. Peripheral pulses symmetric. RESPIRATORY/CHEST: Respirations mildly labored on partial nonrebreather. Breath sounds significantly diminished bilaterally. GASTROINTESTINAL: Abdomen soft, non-tender, nondistended. No guarding. Bowel sounds present. GENITOURINARY: Without palpable bladder distension. MUSCULOSKELETAL: Extremities without clubbing, cyanosis, or edema. LYMPHATICS: No palpable cervical or supraclavicular adenopathy. NEUROLOGICAL: Awake, lethargic. Follows commands. Moves all extremities. Able to make needs known. PSYCHIATRIC: No obvious anxiety/depression. no apparent hallucinations or other psychotic thought process. . Diagnostic Tests Laboratory Laboratory Tests Test 12/23/16 13:53 Blood Gas Puncture Site RT RADIAL Blood Gas Patient Temperature 98.6 Blood Gas HCO3 40 mmol/L (22-26) Blood Gas Base Excess 14.0 mmol/L (-2-2) Blood Gas Oxygen Saturation 88 % (90-100) Arterial Blood pH 7.35 (7.380-7.420) Arterial Blood Partial 75 mmHg (38-42) Pressure CO2 Arterial Blood Partial 62 mmHg Pressure O2 (61-120) Arterial Blood Oxygen Content 13.4 Vol % (12.0-20.0) Arterial Blood 1.8 % (0-4) Carboxyhemoglobin Arterial Blood Methemoglobin 1.4 % (0-2) Blood Gas Hemoglobin 10.7 G/DL (12.0-16.0) Oxygen Delivery Device PRB Blood Gas Liter Flow 10 L/M Procedures 12/01/2016: Intubation 12/07/2016: Extubation . Assessment and Plan Disease Oriented Problem List: (1) Acute respiratory failure with hypoxia (2) Chronic obstructive pulmonary disease with acute exacerbation Comment: Pulmicort 0.5mg neb inhalation q12 hours Solu-Medrol 40 mg IV every 8 hours Bronchodilators Pulmonology, Dr. Cummings, continues to follow. (3) Pneumonia Comment: CT chest revealed bilateral lower lobe pneumonia/right upper lobe pneumonia Aztreonam, Azithromycin, Flagyl from 12/02/16-12/09. (4) Pleural effusion (5) CHF (congestive heart failure) (6) DVT of lower extremity, bilateral Comment: Bilateral posterior tibial nonocclusive DVT On Xarelto 20mg PO daily (7) Anemia (8) Hypertension Comment: On Norvasc 5mg daily and Metoprolol 50mg PO BID (9) Hypoalbuminemia (10) Fibromyalgia (11) Cholelithiasis Symptom Scale: (1) Debility, unspecified (2) Decreased appetite (3) Anxiety (4) Shortness of breath Pertinent Non-Medical Issues Psychosocial: Patient is originally from [place], [place]. Her father in a MVA and when the patient was 4 years old. She has one sister (Madhavi) who lives in [place], [place]. The patient states they are very close. The patient was to her first for 10 years, and her second for approximately 44 years. She is . The patient had 8 children, but 2 are now . (6 living children: 4 daughters and 2 sons) She moved to [place] approximately 17 years ago and is living with her son (Ga). 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 Spiritual: Islam cherise Legal: Patient's son (Ga Diaz) is designated as the primary health care surrogate decision maker. The patient has designated her daughter (Mattie Diaz ) as the alternate health care surrogate decision maker. Ethical issues impacting care: No known ethical issues impacting care at this time. . Important Contacts Ga Diaz, son: [phone] Mattie Diaz, daughter: [phone] . Prognosis Patient is a 76-year-old female with multiple comorbid conditions. She has been hospitalized 4 to 5 times since 09/10/2016 with COPD exacerbations, CAP and respiratory failure requiring intubation. Patient has had an acute change in her disease trajectory over the past 6 months as evidenced by multiple hospitalizations, weight loss, progressively worsening dyspnea with increased oxygen requirements, increased weakness/fatigue. Poor retirement prognosis. . Code Status: Full Code Plan * Decision-making: Patient shows insight and judgment related to her medical conditions, currently capacitated to participate in her own medical decision making. Healthcare surrogate form was completed today (12/17/2016).Patient's son (Ga Diaz) is designated as the primary health care surrogate decision maker. The patient has designated her daughter (Mattie Diaz) as the alternate health care surrogate decision maker. * FULL CODE * Goals: Goals remain aggressive. Patient desires reintubation if needed. Desires rehab placement upon DC, does not want to go back to [facility]. Appears patient may have been accepted to [facility] upon DC if oxygen needs decrease again. * Symptom management-shortness of breath: Educated patient on non- pharmacological management of shortness of breath i.e environmental control, pacing activities, limiting stress, relaxation techniques, position. On Solumedrol. Pulmicort and PRN Duoneb. * Symptom management-debility: Patient having ongoing weakness, reporting increased difficulty completing ADLs and increased fatigue. Physical therapy is following. Patient would benefit from SNF placement upon discharge for rehab. * Symptom management- anxiety: intermittent anxiety secondary to COPD related shortness of breath. Has PRN Alprazolam 0.25mg PO every 8 hours available. * Symptom management- decreased appetite: appetite improving per pt report. * No new medication recommendations at this time. * Palliative care will continue to follow this patient throughout her hospitalization to establish trust, assist with symptom management and clarification of medical treatment goals. . . Attestation To help prompt me to consider important information that might be impacting today's encounter and assessment, information from prior notes written by myself or my colleagues may have been "brought forward" into today's note. My signature on this note, however, is an attestation that I personally performed the exam, history, and/or decision-making noted today, and, unless otherwise indicated, the interactions with patient, family, and staff as well as the review of records all occurred today. I also attest that the listed assessment and stated plan reflect my best clinical judgment today based on the combination of historical information, prior notes, and today's exam/ interactions. When time spent is documented, it refers only to time spent today by the signer, or if indicated, combined time spent today by collaborating physician/nurse practitioner. Roslyn Lance Dec 23, 2016 15:19
--- NOTE | 2016-12-23 15:39 | HHI.PR ---
Subjective Remarks 76 YOWf with Severe COPD, known to me from office has multiple admissions in the hosp Extubated 12/07 On Soft diet Apppeitie improving less sob, over all feels better back on PRB Objective Vital Signs Vital Signs Date Time Temp Pulse Resp B/P Pulse Ox O2 Delivery O2 Flow Rate FiO2 12/23/16 13:14 92 Partial Rebreather 10.00 12/23/16 13:08 92 Partial Non-Rebreather 10.00 12/23/16 11:50 98.3 68 20 114/59 86 12/23/16 08:38 91 Nasal Cannula 5.00 12/23/16 08:35 91 Nasal Cannula 4.00 12/23/16 08:26 96 12/23/16 08:09 98.2 58 22 139/65 85 12/23/16 07:53 60 12/23/16 07:50 97.4 64 20 165/73 88 12/23/16 04:00 97.3 64 18 127/69 92 12/23/16 00:00 97.4 67 18 135/71 91 12/22/16 21:30 Nasal Cannula 4.00 92 12/22/16 20:00 96.6 62 18 129/68 90 12/22/16 19:48 96 Nasal Cannula 5.00 12/22/16 16:56 97.3 53 21 126/75 89 12/22/16 16:48 53 I/O 12/22/16 12/22/16 12/22/16 12/23/16 12/23/16 12/23/16 07:00 15:00 23:00 07:00 15:00 23:00 Intake Total 480 ml 600 ml 240 ml 120 ml Output Total 300 ml 700 ml 600 ml 850 ml 750 ml Balance 180 ml -100 ml -360 ml -730 ml -750 ml Intake Oral 480 ml 600 ml 240 ml 120 ml Output Urine Total 300 ml 700 ml 600 ml 850 ml 750 ml # Bowel Movements 0 0 Objective Remarks GENERAL: MBMN Wf, on vent, sedated SKIN: Warm and dry. HEAD: Normocephalic. EYES: No scleral icterus. No injection or drainage. NECK: Supple, trachea midline. No JVD or lymphadenopathy. CARDIOVASCULAR: Regular rate and rhythm without murmurs, gallops, or rubs. RESPIRATORY: Breath sounds equal bilaterally. No accessory muscle use. GASTROINTESTINAL: Abdomen soft, non-tender, nondistended. MUSCULOSKELETAL: No cyanosis, or edema. BACK: Nontender without obvious deformity. No CVA tenderness. A/P Assessment and Plan VDRF, s/p extubation Severe COPD Pneumonia AF CHF Pleural effusion PLAN: Aerosol nebs Cont Abx Xarelto 20 mg daily Diurease Will need trilogy for home use. PRB, wean to NC Supplement 02 to keep sat 88-92% CPAP prn Arvind Cummings MD Dec 23, 2016 15:39
[2016-12-23] MEDS: RESP: BUDESONIDE 0.5 MG/2 ML NEB NEB SCH (20:33)
[2016-12-23] MEDS: POLYETHYLENE GLYCOL 17 GM PKG PO SCH (21:00)
[2016-12-23 22:22] LABS: BLOOD GAS BASE EXCESS 15.9 mmol/L (-2-2); BLOOD GAS CARBOXYHEMOGLOBIN 1.6 % (0-4); BLOOD GAS HCO3 42 mmol/L (22-26); BLOOD GAS METHEMOGLOBIN 1.2 % (0-2); BLOOD GAS O2 HGB SATURATION 94 % (90-100); BLOOD GAS OXYGEN CONTENT 13.5 Vol % (12.0-20.0); BLOOD GAS PCO2 77 mmHg (38-42); BLOOD GAS PO2 81 mmHg (61-120); BLOOD GAS TOTAL HGB 10.2 G/DL (12.0-16.0); TEMP CORR TO 98.6
[2016-12-23 22:26] LABS: CRITICAL VALUE YES; DRAW SITE LT RADIAL; FIO2 40 %; OXYGEN DEVICE BiPAP
[2016-12-23 22:27] LABS: NUMBER OF ARTERIAL PUNCTURES 1; STAT NO; ULNAR PULSE PRESENT
[2016-12-24] VITALS (11 sets, daily range): BP systolic 131–157; BP diastolic 68–75; PULSE 51–84; RESP 20; TEMP 96.4–98.3; O2SAT 90–99
[2016-12-24] MEDS: CHLORHEXIDINE GLUCONATE 2 % 1 PACK (2 CLOTHS) TOP SCH (04:00)
[2016-12-24] MEDS: LEVOTHYROXINE SODIUM 25 MCG TAB PO SCH (06:08)
[2016-12-24] MEDS: methylPREDNISolone SOD SUCC 40 MG/1 ML VIAL IV SCH ×2 (06:09→12:06)
[2016-12-24] MEDS: METOCLOPRAMIDE HCL 10 MG/2 ML VIAL IV PUSH SCH ×3 (06:09→19:31)
[2016-12-24] MEDS: INSULIN NovoLIN REGULAR SUPPLEMENTAL SCALE SQ SCH ×4 (06:14→16:41)
[2016-12-24 07:18] LABS: AUTOMATED NEUTROPHIL # 7.4 TH/MM3 (1.8-7.7); HEMATOCRIT 30.8 % (35.0-46.0); HEMO FLAGS DIFF FINAL; LYMPHOCYTE # 0.7 TH/MM3 (1.0-4.8); MEAN CELL VOLUME 94.5 FL (80.0-100.0); MEAN CORPUSCULAR HEMOGLOBIN 31.4 PG (27.0-34.0); MEAN CORPUSCULAR HGB CONC 33.3 % (32.0-36.0); MONO % 2.1 % (0.0-8.0); NEUT % 89.9 % (16.0-70.0); PLATELET COUNT 185 TH/MM3 (150-450); RED BLOOD COUNT 3.26 MIL/MM3 (4.00-5.30); RED CELL DISTRIBUTION WIDTH 15.7 % (11.6-17.2); WHITE BLOOD COUNT 8.3 TH/MM3 (4.0-11.0)
[2016-12-24 07:34] LABS: BICARBONATE 44.3 MEQ/L (21.0-32.0); MAGNESIUM 2.3 MG/DL (1.5-2.5); POTASSIUM 4.7 MEQ/L (3.5-5.1)
[2016-12-24] MEDS: CHLORHEXIDINE 0.12% (ORAL KIT) 15 ML CUP MT SCH ×2 (08:00→20:00)
[2016-12-24] MEDS: RIVAROXABAN 20 MG TAB PO SCH (08:01)
[2016-12-24] MEDS: FUROSEMIDE 20 MG TAB PO SCH (08:01)
[2016-12-24] MEDS: FERROUS SULFATE 300 MG /5ML UDC PO SCH ×2 (08:01→19:28)
[2016-12-24] MEDS: GABAPENTIN 300 MG CAP PO SCH ×3 (08:01→16:36)
[2016-12-24] MEDS: amLODIPine BESYLATE 5 MG TAB PO SCH (08:01)
[2016-12-24] MEDS: FAMOTIDINE 20 MG TAB NG SCH (08:01)
[2016-12-24] MEDS: LACTOBACILLUS ACIDOPHILUS TAB PO SCH ×2 (08:01→19:29)
[2016-12-24] MEDS: CYCLOBENZAPRINE HCL 10 MG TAB PO SCH ×3 (08:02→16:36)
[2016-12-24] MEDS: oxyCODONE/ACETAMINOPHEN 5 MG/325 MG TAB PO PRN ×2 (08:04→16:39)
[2016-12-24] MEDS: SODIUM CHLORIDE 0.9% FLUSH 10 ML FLUSH SCH ×2 (08:07→19:29)
[2016-12-24] MEDS: METOPROLOL TARTRATE 25 MG TAB PO SCH ×2 (08:08→19:29)
[2016-12-24] MEDS: RESP: ALBUTEROL 2.5 MG/IPRATROPIUM 0.5 MG NEB (PRN) NEB (08:25)
[2016-12-24] MEDS: RESP: BUDESONIDE 0.5 MG/2 ML NEB NEB SCH ×2 (08:25→19:32)
--- NOTE | 2016-12-24 11:00 | HHI.PR ---
Subjective Remarks Follow up for acute respiratory failure, COPD exacerbation. Patient is on non- rebreather and requiring 10L of O2. She denies any chest pain, fever, chills. Objective Vitals Vital Signs Date Time Temp Pulse Resp B/P Pulse Ox O2 Delivery O2 Flow Rate FiO2 12/24/16 08:26 97 Partial Rebreather 10.00 12/24/16 08:22 93 Partial Non-Rebreather 10.00 12/24/16 07:50 96.4 54 20 157/75 97 12/24/16 07:48 54 12/24/16 04:00 97.5 51 20 147/73 99 12/24/16 03:29 94 Partial Rebreather 12.00 12/24/16 02:33 96 60 12/24/16 00:00 97.6 53 20 156/70 96 12/23/16 23:14 80 12/23/16 23:12 90 Bi-Pap 12/23/16 21:00 94 40 12/23/16 20:30 97 Partial Rebreather 10.00 12/23/16 20:00 96.4 68 20 125/66 94 12/23/16 17:50 92 Partial Non-Rebreather 12/23/16 15:45 96.5 57 20 115/60 95 12/23/16 13:14 92 Partial Rebreather 10.00 12/23/16 13:08 92 Partial Non-Rebreather 10.00 12/23/16 11:50 98.3 68 20 114/59 86 I/O 12/23/16 12/23/16 12/23/16 12/24/16 12/24/16 12/24/16 07:00 15:00 23:00 07:00 15:00 23:00 Intake Total 120 ml 360 ml 360 ml Output Total 850 ml 1450 ml 300 ml Balance -730 ml -1090 ml 360 ml -300 ml Intake Oral 120 ml 360 ml 360 ml Output Urine Total 850 ml 1450 ml 300 ml # Voids 100 # Bowel Movements 0 0 Result Diagram: 12/24/16 0603 12/24/16 0603 Imaging Last Impressions Chest X-Ray 12/15/16 0800 Signed Impressions: Service Date/Time: Thursday, December 15, 2016 08:00 - CONCLUSION: Stable chest x-ray with bibasilar opacity representing pleural effusions with associated volume loss and/or airspace consolidation. Jasper Head MD Renal Ultrasound 12/04/16 0000 Signed Impressions: Service Date/Time: November 17:52 - CONCLUSION: 1. Numerous cysts and chronic parenchymal disease of both kidneys. No evidence of obstructive uropathy or other acute abnormality. 2. Fuentes catheter present. Urinary bladder grossly unremarkable. 3. Cholelithiasis incidentally noted. Jasper Springer MD Lower Extremity Ultrasound 12/03/16 0000 Signed Impressions: Service Date/Time: Saturday, December 03, 2016 09:17 - CONCLUSION: Nonocclusive deep venous thrombus within the posterior tibial veins bilaterally. Galen Pierre MD Liver Ultrasound 12/02/16 0000 Signed Impressions: Service Date/Time: Friday, December 02, 2016 17:19 - CONCLUSION: 1. Common bile duct upper limits of normal caliber for a patient this age. No duct stone. 2. Several stones in the gallbladder measuring up to 14 mm in size. No evidence of acute cholecystitis Jasper Springer MD Chest CT 12/02/16 Signed Impressions: Service Date/Time: Friday, December 02, 2016 10:46 - CONCLUSION: 1. Small bilateral pleural effusions with adjacent alveolar consolidations (right slightly worse than left) consistent with atelectasis and/or pneumonia. Clinical correlation is recommended. 2. Patchiness within the right upper lobe consistent with possible pneumonia. Clinical correlation is recommended. 3. Cardiomegaly, coronary artery calcifications and mitral annulus calcifications. 4. 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 5. Cholelithiasis. 6. Multiple simple and complex renal cysts bilaterally. 7. Degenerative changes and scoliosis of the thoracolumbar spine. 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 Anuradha Anthony MD Objective Remarks GENERAL: Alert, NAD. SKIN: Warm and dry. HEAD: Normocephalic. EYES: No scleral icterus. No injection or drainage. NECK: Supple, trachea midline. No JVD or lymphadenopathy. CARDIOVASCULAR: Regular rate and rhythm without murmurs, gallops, or rubs. RESPIRATORY: Moderate air entry. No appreciable wheezing. Diminished breath sound. GASTROINTESTINAL: Abdomen soft, non-tender, nondistended. MUSCULOSKELETAL: No cyanosis, or edema. BACK: Nontender without obvious deformity. No CVA tenderness. Procedures 12/05/2016 Echo CONCLUSIONS Normal left ventricular size. Mild to moderate concentric left ventricular hypertrophy. The left ventricular systolic function is hyperdynamic with an estimated ejection fraction in the range of 65- 70%. Doppler parameters are consistent with impaired left ventricular relaxtion ( grade 1 diastolic dysfunction). Structurally normal mitral valve. Mild mitral valve regurgitation. Moderate mitral annular calcification. Structurally normal tricuspid valve. There is mild tricuspid valve regurgitation. Normal estimated pulmonary pressures. A/P Problem List: (1) Acute respiratory failure with hypoxia and hypercapnia ICD Code: J96.01 Status: Acute (2) Chronic obstructive pulmonary disease with acute exacerbation ICD Code: J44.1 Status: Acute (3) Hypoalbuminemia ICD Code: E88.09 Status: Chronic Assessment and Plan Ms. Diaz is a 76 year old female with a history of COPD who was admitted to the hospital due to shortness of breath. Due to hypercapnia and lethargy, patient was intubated in the ED and was managed in the ICU. She was extubated on 12/07/2016 and subsequently patient was transferred to the hospitalist service on 12/10/2016. - Acute respiratory failure - hypoxic and hypercapnic. - Currently patient is on NRB. We switched her to nasal cannula. - On nasal cannula, patient is oxygenating well. Goal to keep O2 sat > 88% with minimum amount of O2. - Provide scheduled DuoNeb as well as PRN - Patient received abx, no further abx. - Continue low dose Xanax. - Continue Pulmicort - Switch Solumedrol IV to PO prednisone. We will do a relatively short taper. - Hypertension - Diastolic heart failure - Continue Metoprolol 50mg Q12hrs. - Continue Amlodipine 5mg Qday and Lasix 20mg Qday. - Hyperglycemia - Continue sliding scale insulin. However, we will change to Aspart sliding scale. - Will check HgA1C. May need long acting insulin. - Hypothyroidism - Continue Levothyroxine 25mcg Qday. - History of bilateral posterior tibial nonocclusive DVT - Continue Xarelto 20mg Qday. Full code. Xarelto. Dorina Barrios DO Dec 24, 2016 11:00
[2016-12-24] MEDS: DOCUSATE SODIUM 50 MG/SENNA 8.6 MG TAB PO SCH ×2 (12:07→19:28)
[2016-12-24] MEDS: RESP: ALBUTEROL 2.5 MG/IPRATROPIUM 0.5 MG NEB (SCH) NEB ×3 (12:19→19:32)
--- NOTE | 2016-12-24 18:28 | HHI.PR ---
Subjective Remarks 76 YOWf with Severe COPD, known to me from office has multiple admissions in the hosp Extubated 12/07 On Soft diet Apppeitie improving less sob, over all feels better On 5 LNC used CPAP last night Objective Vital Signs Vital Signs Date Time Temp Pulse Resp B/P Pulse Ox O2 Delivery O2 Flow Rate FiO2 12/24/16 15:50 97.7 82 20 140/68 90 12/24/16 11:50 97.1 68 20 153/72 98 12/24/16 10:59 91 Nasal Cannula 5.00 12/24/16 08:26 97 Partial Rebreather 10.00 12/24/16 08:22 93 Partial Non-Rebreather 10.00 12/24/16 07:50 96.4 54 20 157/75 97 12/24/16 07:48 54 12/24/16 04:00 97.5 51 20 147/73 99 12/24/16 03:29 94 Partial Rebreather 12.00 12/24/16 02:33 96 60 12/24/16 00:00 97.6 53 20 156/70 96 12/23/16 23:14 80 12/23/16 23:12 90 Bi-Pap 12/23/16 21:00 94 40 12/23/16 20:30 97 Partial Rebreather 10.00 12/23/16 20:00 96.4 68 20 125/66 94 I/O 12/23/16 12/23/16 12/23/16 12/24/16 12/24/16 12/24/16 07:00 15:00 23:00 07:00 15:00 23:00 Intake Total 120 ml 360 ml 360 ml 360 ml Output Total 850 ml 1450 ml 300 ml 0 ml 1400 ml Balance -730 ml -1090 ml 360 ml -300 ml 360 ml -1400 ml Intake Oral 120 ml 360 ml 360 ml 360 ml Output Urine Total 850 ml 1450 ml 300 ml 0 ml 1400 ml # Voids 100 # Bowel Movements 0 0 1 Result Diagram: 12/24/1660212/24/16602 Objective Remarks GENERAL: MBMN Wf, on vent, sedated SKIN: Warm and dry. HEAD: Normocephalic. EYES: No scleral icterus. No injection or drainage. NECK: Supple, trachea midline. No JVD or lymphadenopathy. CARDIOVASCULAR: Regular rate and rhythm without murmurs, gallops, or rubs. RESPIRATORY: Breath sounds equal bilaterally. No accessory muscle use. GASTROINTESTINAL: Abdomen soft, non-tender, nondistended. MUSCULOSKELETAL: No cyanosis, or edema. BACK: Nontender without obvious deformity. No CVA tenderness. A/P Assessment and Plan VDRF, s/p extubation Severe COPD Pneumonia AF CHF Pleural effusion PLAN: Aerosol nebs Cont Abx Xarelto 20 mg daily Diurease Will need trilogy for home use. cont NC Supplement 02 to keep sat 88-92% CPAP prn Arvind Cummings MD Dec 24, 2016 18:28
[2016-12-24] MEDS: predniSONE 20 MG TAB PO SCH (19:28)
[2016-12-24] MEDS: POLYETHYLENE GLYCOL 17 GM PKG PO SCH (19:28)
[2016-12-24] MEDS ORDERED: DEXTROSE 50% IN WATER 50 ML VIAL(D50) IV PRN (23:30)
[2016-12-24] MEDS ORDERED: GLUCAGON 1 MG/ML VIAL OTHER PRN (23:30)
[2016-12-25] VITALS (9 sets, daily range): BP systolic 126–180; BP diastolic 63–89; PULSE 56–74; RESP 18–20; TEMP 96.7–98.4; O2SAT 63–95
[2016-12-25] MEDS: CHLORHEXIDINE GLUCONATE 2 % 1 PACK (2 CLOTHS) TOP SCH (04:00)
[2016-12-25] MEDS: LEVOTHYROXINE SODIUM 25 MCG TAB PO SCH (06:10)
[2016-12-25] MEDS: INSULIN ASPART SUPPLEMENTAL SCALE SQ SCH ×3 (06:11→17:23)
[2016-12-25] MEDS: METOCLOPRAMIDE HCL 10 MG/2 ML VIAL IV PUSH SCH ×3 (06:11→23:03)
[2016-12-25] MEDS: RESP: BUDESONIDE 0.5 MG/2 ML NEB NEB SCH ×2 (07:58→20:03)
[2016-12-25] MEDS: RESP: ALBUTEROL 2.5 MG/IPRATROPIUM 0.5 MG NEB (SCH) NEB ×4 (07:58→20:03)
[2016-12-25] MEDS: amLODIPine BESYLATE 5 MG TAB PO SCH (11:19)
[2016-12-25] MEDS: DOCUSATE SODIUM 50 MG/SENNA 8.6 MG TAB PO SCH ×2 (11:19→23:03)
[2016-12-25] MEDS: GABAPENTIN 300 MG CAP PO SCH ×3 (11:19→16:52)
[2016-12-25] MEDS: FUROSEMIDE 20 MG TAB PO SCH (11:19)
[2016-12-25] MEDS: predniSONE 20 MG TAB PO SCH ×2 (11:19→22:59)
[2016-12-25] MEDS: METOPROLOL TARTRATE 25 MG TAB PO SCH ×2 (11:20→23:02)
[2016-12-25] MEDS: RIVAROXABAN 20 MG TAB PO SCH (11:20)
[2016-12-25] MEDS: CYCLOBENZAPRINE HCL 10 MG TAB PO SCH ×3 (11:20→16:53)
[2016-12-25] MEDS: FAMOTIDINE 20 MG TAB NG SCH (11:20)
[2016-12-25] MEDS: SODIUM CHLORIDE 0.9% FLUSH 10 ML FLUSH SCH ×2 (11:21→23:15)
[2016-12-25] MEDS: CHLORHEXIDINE 0.12% (ORAL KIT) 15 ML CUP MT SCH ×2 (11:22→20:00)
[2016-12-25 11:24] LABS: HEMOGLOBIN A1b 2.3 %; HEMOGLOBIN Ao 83.2 %; HEMOGLOBIN LA1C 2.4 %; HEMOGLOBIN P3 4.7 %
[2016-12-25] MEDS: ONDANSETRON HCL 4 MG/2 ML VIAL IV PRN (12:13)
[2016-12-25] MEDS: FERROUS SULFATE 300 MG /5ML UDC PO SCH ×2 (12:13→23:00)
--- NOTE | 2016-12-25 14:05 | HHI.PR ---
Subjective Remarks Follow up for acute respiratory failure, COPD exacerbation. Patient is currently doing well. She is oxygenating above 90% on 4 L of oxygen. Denies any chest pain, shortness of breath, fever or chills. Objective Vitals Vital Signs Date Time Temp Pulse Resp B/P Pulse Ox O2 Delivery O2 Flow Rate FiO2 12/25/16 12:00 97.2 74 18 126/63 91 12/25/16 08:00 98.4 62 20 180/89 93 12/25/16 07:59 92 Nasal Cannula 6.00 12/25/16 04:00 97.2 56 20 151/74 95 12/25/16 00:00 96.7 57 20 152/70 91 12/24/16 20:00 98.3 84 20 131/73 93 12/24/16 19:48 92 Partial Non-Rebreather 10.00 12/24/16 19:34 92 Nasal Cannula 6.00 12/24/16 15:50 97.7 82 20 140/68 90 I/O 12/24/16 12/24/16 12/24/16 12/25/16 12/25/16 12/25/16 07:00 15:00 23:00 07:00 15:00 23:00 Intake Total 360 ml 480 ml Output Total 300 ml 0 ml 1600 ml Balance -300 ml 360 ml -1120 ml Intake Oral 360 ml 480 ml Output Urine Total 300 ml 0 ml 1600 ml # Voids 100 # Bowel Movements 1 Result Diagram: 12/24/16 0603 12/24/16 0603 Imaging Last Impressions Chest X-Ray 12/15/16 0800 Signed Impressions: Service Date/Time: Thursday, December 15, 2016 08:00 - CONCLUSION: Stable chest x-ray with bibasilar opacity representing pleural effusions with associated volume loss and/or airspace consolidation. Jasper Head MD Renal Ultrasound 12/04/16 0000 Signed Impressions: Service Date/Time: November 17:52 - CONCLUSION: 1. Numerous cysts and chronic parenchymal disease of both kidneys. No evidence of obstructive uropathy or other acute abnormality. 2. Fuentes catheter present. Urinary bladder grossly unremarkable. 3. Cholelithiasis incidentally noted. Jasper Springer MD Lower Extremity Ultrasound 12/03/16 0000 Signed Impressions: Service Date/Time: Saturday, December 03, 2016 09:17 - CONCLUSION: Nonocclusive deep venous thrombus within the posterior tibial veins bilaterally. Galen Pierre MD Liver Ultrasound 12/02/16 0000 Signed Impressions: Service Date/Time: Friday, December 02, 2016 17:19 - CONCLUSION: 1. Common bile duct upper limits of normal caliber for a patient this age. No duct stone. 2. Several stones in the gallbladder measuring up to 14 mm in size. No evidence of acute cholecystitis Jasper Springer MD Chest CT 12/02/16 0000 Signed Impressions: Service Date/Time: Friday, December 02, 2016 10:46 - CONCLUSION: 1. Small bilateral pleural effusions with adjacent alveolar consolidations (right slightly worse than left) consistent with atelectasis and/or pneumonia. Clinical correlation is recommended. 2. Patchiness within the right upper lobe consistent with possible pneumonia. Clinical correlation is recommended. 3. Cardiomegaly, coronary artery calcifications and mitral annulus calcifications. 4. 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 5. Cholelithiasis. 6. Multiple simple and complex renal cysts bilaterally. 7. Degenerative changes and scoliosis of the thoracolumbar spine. 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 Anuradha Anthony MD Objective Remarks GENERAL: Alert, NAD. SKIN: Warm and dry. HEAD: Normocephalic. EYES: No scleral icterus. No injection or drainage. NECK: Supple, trachea midline. No JVD or lymphadenopathy. CARDIOVASCULAR: Regular rate and rhythm without murmurs, gallops, or rubs. RESPIRATORY: Moderate air entry. No appreciable wheezing. Diminished breath sound. GASTROINTESTINAL: Abdomen soft, non-tender, nondistended. MUSCULOSKELETAL: No cyanosis, or edema. BACK: Nontender without obvious deformity. No CVA tenderness. Procedures 12/05/2016 Echo CONCLUSIONS Normal left ventricular size. Mild to moderate concentric left ventricular hypertrophy. The left ventricular systolic function is hyperdynamic with an estimated ejection fraction in the range of 65- 70%. Doppler parameters are consistent with impaired left ventricular relaxtion ( grade 1 diastolic dysfunction). Structurally normal mitral valve. Mild mitral valve regurgitation. Moderate mitral annular calcification. Structurally normal tricuspid valve. There is mild tricuspid valve regurgitation. Normal estimated pulmonary pressures. A/P Problem List: (1) Acute respiratory failure with hypoxia and hypercapnia ICD Code: J96.01 Status: Acute (2) Chronic obstructive pulmonary disease with acute exacerbation ICD Code: J44.1 Status: Acute (3) Hypoalbuminemia ICD Code: E88.09 Status: Chronic Assessment and Plan Ms. Diaz is a 76 year old female with a history of COPD who was admitted to the hospital due to shortness of breath. Due to hypercapnia and lethargy, patient was intubated in the ED and was managed in the ICU. She was extubated on 12/07/2016 and subsequently patient was transferred to the hospitalist service on 12/10/2016. - Acute respiratory failure - hypoxic and hypercapnic. - Currently patient is on NRB. We switched her to nasal cannula. - On nasal cannula, patient is oxygenating well. Goal to keep O2 sat > 88% with minimum amount of O2. Currently on 4 L of oxygen. - Provide scheduled DuoNeb as well as PRN - Patient received abx, no further abx. - Continue low dose Xanax. - Continue Pulmicort - Switch Solumedrol IV to PO prednisone. We will do a relatively short taper. - Hypertension - Diastolic heart failure - Continue Metoprolol 50mg Q12hrs. - Continue Amlodipine 5mg Qday and Lasix 20mg Qday. - Hyperglycemia - Continue sliding scale insulin. - Hemoglobin A1c 6.1. Patient will benefit from metformin which we can start on discharge. - Hypothyroidism - Continue Levothyroxine 25mcg Qday. - History of bilateral posterior tibial nonocclusive DVT - Continue Xarelto 20mg Qday. Full code. Xarelto. Pending placement arrangement, patient can be discharged to SNF. Dorina Barrios DO Dec 25, 2016 2:04 pm
[2016-12-25] MEDS ORDERED: PRED5PAK PO (14:22)
[2016-12-25] MEDS: LACTOBACILLUS ACIDOPHILUS TAB PO SCH ×2 (14:24→23:02)
--- NOTE | 2016-12-25 18:58 | HHI.PR ---
Subjective Remarks 76 YOWf with Severe COPD, known to me from office has multiple admissions in the hosp Extubated 12/07 Apppeitie improving less sob, over all feels better On 5 LNC Did't use CPAP last night Objective Vital Signs Vital Signs Date Time Temp Pulse Resp B/P Pulse Ox O2 Delivery O2 Flow Rate FiO2 12/25/16 16:00 97.2 60 18 132/75 63 12/25/16 12:00 97.2 74 18 126/63 91 12/25/16 08:00 Nasal Cannula 4.00 12/25/16 08:00 98.4 62 20 180/89 93 12/25/16 07:59 92 Nasal Cannula 6.00 12/25/16 04:00 97.2 56 20 151/74 95 12/25/16 00:00 96.7 57 20 152/70 91 12/24/16 20:00 98.3 84 20 131/73 93 12/24/16 19:48 92 Partial Non-Rebreather 10.00 12/24/16 19:34 92 Nasal Cannula 6.00 I/O 12/24/16 12/24/16 12/24/16 12/25/16 12/25/16 12/25/16 07:00 15:00 23:00 07:00 15:00 23:00 Intake Total 360 ml 480 ml 480 ml Output Total 300 ml 0 ml 1600 ml 0 ml Balance -300 ml 360 ml -1120 ml 480 ml Intake Oral 360 ml 480 ml 480 ml Output Urine Total 300 ml 0 ml 1600 ml Stool Total 0 ml # Voids 100 3 # Bowel Movements 1 Result Diagram: 12/24/16 0612/24/16 06 Objective Remarks GENERAL: MBMN Wf, on vent, sedated SKIN: Warm and dry. HEAD: Normocephalic. EYES: No scleral icterus. No injection or drainage. NECK: Supple, trachea midline. No JVD or lymphadenopathy. CARDIOVASCULAR: Regular rate and rhythm without murmurs, gallops, or rubs. RESPIRATORY: Breath sounds equal bilaterally. No accessory muscle use. GASTROINTESTINAL: Abdomen soft, non-tender, nondistended. MUSCULOSKELETAL: No cyanosis, or edema. BACK: Nontender without obvious deformity. No CVA tenderness. A/P Assessment and Plan VDRF, s/p extubation Severe COPD Pneumonia AF CHF Pleural effusion PLAN: Aerosol nebs Cont Abx Xarelto 20 mg daily Diurease Will need trilogy for home use. cont NC Supplement 02 to keep sat 88-92% CPAP prn DC plans underway for SNF Arvind Cummings MD Dec 25, 2016 18:58
[2016-12-25] MEDS: POLYETHYLENE GLYCOL 17 GM PKG PO SCH (23:02)
[2016-12-26] VITALS (10 sets, daily range): BP systolic 126–168; BP diastolic 60–78; PULSE 54–85; RESP 16–22; TEMP 96.1–99.2; O2SAT 90–96
[2016-12-26] MEDS: INSULIN ASPART SUPPLEMENTAL SCALE SQ SCH ×5 (00:27→21:00)
[2016-12-26] MEDS: ALPRAZolam 0.25 MG TAB PO PRN (02:36)
[2016-12-26] MEDS: CHLORHEXIDINE GLUCONATE 2 % 1 PACK (2 CLOTHS) TOP SCH (04:00)
[2016-12-26] MEDS: LEVOTHYROXINE SODIUM 25 MCG TAB PO SCH (07:05)
[2016-12-26] MEDS: METOCLOPRAMIDE HCL 10 MG/2 ML VIAL IV PUSH SCH ×3 (07:05→21:25)
[2016-12-26] MEDS: CHLORHEXIDINE 0.12% (ORAL KIT) 15 ML CUP MT SCH ×2 (08:00→20:00)
[2016-12-26] MEDS: RESP: BUDESONIDE 0.5 MG/2 ML NEB NEB SCH ×2 (08:31→20:00)
[2016-12-26] MEDS: RESP: ALBUTEROL 2.5 MG/IPRATROPIUM 0.5 MG NEB (SCH) NEB ×4 (08:31→21:26)
[2016-12-26] MEDS: GABAPENTIN 300 MG CAP PO SCH ×3 (08:38→18:54)
[2016-12-26] MEDS: FERROUS SULFATE 300 MG /5ML UDC PO SCH ×2 (08:38→21:18)
[2016-12-26] MEDS: METOPROLOL TARTRATE 25 MG TAB PO SCH ×2 (08:38→21:17)
[2016-12-26] MEDS: LACTOBACILLUS ACIDOPHILUS TAB PO SCH ×2 (08:38→21:17)
[2016-12-26] MEDS: predniSONE 20 MG TAB PO SCH ×2 (08:39→21:17)
[2016-12-26] MEDS: CYCLOBENZAPRINE HCL 10 MG TAB PO SCH ×3 (08:39→18:55)
[2016-12-26] MEDS: FAMOTIDINE 20 MG TAB NG SCH (08:39)
[2016-12-26] MEDS: amLODIPine BESYLATE 5 MG TAB PO SCH (08:39)
[2016-12-26] MEDS: RIVAROXABAN 20 MG TAB PO SCH (08:39)
[2016-12-26] MEDS: FUROSEMIDE 20 MG TAB PO SCH (08:39)
[2016-12-26] MEDS: DOCUSATE SODIUM 50 MG/SENNA 8.6 MG TAB PO SCH ×2 (08:39→21:00)
[2016-12-26] MEDS: SODIUM CHLORIDE 0.9% FLUSH 10 ML FLUSH SCH ×2 (08:40→21:25)
--- NOTE | 2016-12-26 11:40 | HHI.PR ---
Subjective Remarks Follow up for acute respiratory failure, COPD exacerbation. Patient is doing well, requiring 5L of O2. Denies any chest pain, fever, chills. Eating breakfast in bed. Objective Vitals Vital Signs Date Time Temp Pulse Resp B/P Pulse Ox O2 Delivery O2 Flow Rate FiO2 12/26/16 08:00 97.8 54 22 160/76 96 12/26/16 08:00 Nasal Cannula 6.00 12/26/16 05:00 97.3 55 20 168/78 95 12/26/16 00:00 96 12/26/16 00:00 97.0 63 20 134/67 12/25/16 22:55 93 Simple Mask 8.00 12/25/16 21:00 94 Nasal Cannula 4.00 60 12/25/16 20:03 94 Nasal Cannula 5.00 12/25/16 20:00 97.7 60 20 129/65 92 12/25/16 16:00 97.2 60 18 132/75 63 12/25/16 12:00 97.2 74 18 126/63 91 I/O 12/25/16 12/25/16 12/25/16 12/26/16 12/26/16 12/26/16 06:59 14:59 22:59 06:59 14:59 22:59 Intake Total 960 ml 240 ml Output Total 0 ml Balance 960 ml 240 ml Intake Oral 960 ml 240 ml Stool Total 0 ml # Voids 5 1 Result Diagram: 12/24/16 0603 12/24/16 0603 Imaging Last Impressions Chest X-Ray 12/15/16 0800 Signed Impressions: Service Date/Time: Thursday, December 15, 2016 08:00 - CONCLUSION: Stable chest x-ray with bibasilar opacity representing pleural effusions with associated volume loss and/or airspace consolidation. Jasper Head MD Renal Ultrasound 12/04/16 0000 Signed Impressions: Service Date/Time: November 17:52 - CONCLUSION: 1. Numerous cysts and chronic parenchymal disease of both kidneys. No evidence of obstructive uropathy or other acute abnormality. 2. Fuentes catheter present. Urinary bladder grossly unremarkable. 3. Cholelithiasis incidentally noted. Jasper Springer MD Lower Extremity Ultrasound 12/03/16 0000 Signed Impressions: Service Date/Time: Saturday, December 03, 2016 09:17 - CONCLUSION: Nonocclusive deep venous thrombus within the posterior tibial veins bilaterally. Galen Pierre MD Liver Ultrasound 12/02/16 0000 Signed Impressions: Service Date/Time: Friday, December 02, 2016 17:19 - CONCLUSION: 1. Common bile duct upper limits of normal caliber for a patient this age. No duct stone. 2. Several stones in the gallbladder measuring up to 14 mm in size. No evidence of acute cholecystitis Jasper Springer MD Chest CT 12/02/16 0000 Signed Impressions: Service Date/Time: Friday, December 02, 2016 10:46 - CONCLUSION: 1. Small bilateral pleural effusions with adjacent alveolar consolidations (right slightly worse than left) consistent with atelectasis and/or pneumonia. Clinical correlation is recommended. 2. Patchiness within the right upper lobe consistent with possible pneumonia. Clinical correlation is recommended. 3. Cardiomegaly, coronary artery calcifications and mitral annulus calcifications. 4. 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 5. Cholelithiasis. 6. Multiple simple and complex renal cysts bilaterally. 7. Degenerative changes and scoliosis of the thoracolumbar spine. 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 Anuradha Anthony MD Objective Remarks GENERAL: Alert, NAD. SKIN: Warm and dry. HEAD: Normocephalic. EYES: No scleral icterus. No injection or drainage. NECK: Supple, trachea midline. No JVD or lymphadenopathy. CARDIOVASCULAR: Regular rate and rhythm without murmurs, gallops, or rubs. RESPIRATORY: Moderate air entry. No appreciable wheezing. Diminished breath sound. GASTROINTESTINAL: Abdomen soft, non-tender, nondistended. MUSCULOSKELETAL: No cyanosis, or edema. BACK: Nontender without obvious deformity. No CVA tenderness. Procedures 12/05/2016 Echo CONCLUSIONS Normal left ventricular size. Mild to moderate concentric left ventricular hypertrophy. The left ventricular systolic function is hyperdynamic with an estimated ejection fraction in the range of 65- 70%. Doppler parameters are consistent with impaired left ventricular relaxtion ( grade 1 diastolic dysfunction). Structurally normal mitral valve. Mild mitral valve regurgitation. Moderate mitral annular calcification. Structurally normal tricuspid valve. There is mild tricuspid valve regurgitation. Normal estimated pulmonary pressures. A/P Problem List: (1) Acute respiratory failure with hypoxia and hypercapnia ICD Code: J96.01 Status: Acute (2) Chronic obstructive pulmonary disease with acute exacerbation ICD Code: J44.1 Status: Acute (3) Hypoalbuminemia ICD Code: E88.09 Status: Chronic Assessment and Plan Ms. Diaz is a 76 year old female with a history of COPD who was admitted to the hospital due to shortness of breath. Due to hypercapnia and lethargy, patient was intubated in the ED and was managed in the ICU. She was extubated on 12/07/2016 and subsequently patient was transferred to the hospitalist service on 12/10/2016. - Acute respiratory failure - hypoxic and hypercapnic. - Currently patient is on nasal cannula. - Titrate down O2 requirements to keep O2 sat > 88%. - Provide scheduled DuoNeb as well as PRN - Patient received abx, no further abx. - Continue low dose Xanax. - Continue Pulmicort - Switch Solumedrol IV to PO prednisone. We will do a relatively short taper. - Hypertension - Diastolic heart failure - Continue Metoprolol 50mg Q12hrs. - Continue Amlodipine 5mg Qday and Lasix 20mg Qday. - Hyperglycemia - Continue sliding scale insulin. - Hemoglobin A1c 6.1. Patient will benefit from metformin which we can start on discharge. - Hypothyroidism - Continue Levothyroxine 25mcg Qday. - History of bilateral posterior tibial nonocclusive DVT - Continue Xarelto 20mg Qday. Full code. Xarelto. Pending placement arrangement, patient can be discharged to SNF. Dorina Barrios DO Dec 26, 2016 11:40 am
--- NOTE | 2016-12-26 17:54 | HHI.PR ---
Subjective Remarks 76 YOWf with Severe COPD, known to me from office has multiple admissions in the hosp Extubated 12/07 Apppeitie improving less sob, over all feels better On 5 LNC Did't use CPAP last night No Cough or sputum. Objective Vital Signs Vital Signs Date Time Temp Pulse Resp B/P Pulse Ox O2 Delivery O2 Flow Rate FiO2 12/26/16 16:45 97.4 74 22 126/60 91 12/26/16 15:51 94 Venturi Mask 6.00 35 12/26/16 12:35 99.2 85 22 130/68 93 12/26/16 11:20 95 Non-Rebreather 10.00 12/26/16 08:45 93 Simple Mask 8.00 12/26/16 08:00 97.8 54 22 160/76 96 12/26/16 08:00 Nasal Cannula 6.00 12/26/16 05:00 97.3 55 20 168/78 95 12/26/16 00:00 96 12/26/16 00:00 97.0 63 20 134/67 12/25/16 22:55 93 Simple Mask 8.00 12/25/16 21:00 94 Nasal Cannula 4.00 60 12/25/16 20:03 94 Nasal Cannula 5.00 12/25/16 20:00 97.7 60 20 129/65 92 I/O 12/25/16 12/25/16 12/25/16 12/26/16 12/26/16 12/26/16 07:00 15:00 23:00 07:00 15:00 23:00 Intake Total 480 ml 480 ml 240 ml 720 ml Output Total 0 ml Balance 480 ml 480 ml 240 ml 720 ml Intake Oral 480 ml 480 ml 240 ml 720 ml Stool Total 0 ml # Voids 3 2 1 3 # Bowel Movements 2 Result Diagram: 12/24/16 0603 12/24/16 0603 Objective Remarks GENERAL: MBMN Wf, on vent, sedated SKIN: Warm and dry. HEAD: Normocephalic. EYES: No scleral icterus. No injection or drainage. NECK: Supple, trachea midline. No JVD or lymphadenopathy. CARDIOVASCULAR: Regular rate and rhythm without murmurs, gallops, or rubs. RESPIRATORY: Breath sounds equal bilaterally. No accessory muscle use. GASTROINTESTINAL: Abdomen soft, non-tender, nondistended. MUSCULOSKELETAL: No cyanosis, or edema. BACK: Nontender without obvious deformity. No CVA tenderness. A/P Assessment and Plan VDRF, s/p extubation Severe COPD Pneumonia AF CHF Pleural effusion PLAN: Aerosol nebs Cont Abx Xarelto 20 mg daily Diurease Will need trilogy for home use. cont NC Supplement 02 to keep sat 88-92% CPAP prn Arvind Cummings MD Dec 26, 2016 17:54
[2016-12-26] MEDS: POLYETHYLENE GLYCOL 17 GM PKG PO SCH (21:00)
[2016-12-26] MEDS: oxyCODONE/ACETAMINOPHEN 5 MG/325 MG TAB PO PRN (21:17)
[2016-12-27] VITALS (9 sets, daily range): BP systolic 106–164; BP diastolic 60–88; PULSE 54–88; RESP 15–20; TEMP 96.8–98.4; O2SAT 88–98
[2016-12-27] MEDS: CHLORHEXIDINE GLUCONATE 2 % 1 PACK (2 CLOTHS) TOP SCH (03:04)
[2016-12-27] MEDS: RESP: ALBUTEROL 2.5 MG/IPRATROPIUM 0.5 MG NEB (PRN) NEB (03:49)
[2016-12-27] MEDS: LEVOTHYROXINE SODIUM 25 MCG TAB PO SCH (05:20)
[2016-12-27] MEDS: METOCLOPRAMIDE HCL 10 MG/2 ML VIAL IV PUSH SCH ×3 (05:20→21:13)
[2016-12-27] MEDS: INSULIN ASPART SUPPLEMENTAL SCALE SQ SCH ×4 (06:01→19:43)
[2016-12-27] MEDS: CHLORHEXIDINE 0.12% (ORAL KIT) 15 ML CUP MT SCH ×2 (08:00→19:54)
[2016-12-27] MEDS: METOPROLOL TARTRATE 25 MG TAB PO SCH ×2 (08:14→19:38)
[2016-12-27] MEDS: RIVAROXABAN 20 MG TAB PO SCH (08:14)
[2016-12-27] MEDS: LACTOBACILLUS ACIDOPHILUS TAB PO SCH ×2 (08:14→19:39)
[2016-12-27] MEDS: DOCUSATE SODIUM 50 MG/SENNA 8.6 MG TAB PO SCH ×2 (08:14→19:43)
[2016-12-27] MEDS: CYCLOBENZAPRINE HCL 10 MG TAB PO SCH ×3 (08:15→17:53)
[2016-12-27] MEDS: predniSONE 20 MG TAB PO SCH ×2 (08:15→19:39)
[2016-12-27] MEDS: FUROSEMIDE 20 MG TAB PO SCH (08:15)
[2016-12-27] MEDS: amLODIPine BESYLATE 5 MG TAB PO SCH (08:15)
[2016-12-27] MEDS: GABAPENTIN 300 MG CAP PO SCH ×3 (08:15→17:53)
[2016-12-27] MEDS: FERROUS SULFATE 300 MG /5ML UDC PO SCH ×2 (08:15→19:39)
[2016-12-27] MEDS: FAMOTIDINE 20 MG TAB NG SCH (08:15)
[2016-12-27] MEDS: SODIUM CHLORIDE 0.9% FLUSH 10 ML FLUSH SCH ×2 (08:16→19:44)
[2016-12-27] MEDS: RESP: BUDESONIDE 0.5 MG/2 ML NEB NEB SCH ×2 (08:46→20:19)
[2016-12-27] MEDS: RESP: ALBUTEROL 2.5 MG/IPRATROPIUM 0.5 MG NEB (SCH) NEB ×4 (08:46→20:19)
--- NOTE | 2016-12-27 09:51 | HHI.PR ---
Subjective Remarks Follow up for acute respiratory failure, COPD exacerbation. Ms. Diaz reports not doing so well. She is requiring more oxygen. Currently on NRB on 50% O2. No fever, chills. Denies excessive cough. Objective Vitals Vital Signs Date Time Temp Pulse Resp B/P Pulse Ox O2 Delivery O2 Flow Rate FiO2 12/27/16 08:47 88 Venturi Mask 6.00 50 12/27/16 08:00 98.0 60 18 164/78 93 12/27/16 04:00 96.8 58 15 154/88 89 12/27/16 03:52 90 Venturi Mask 6.00 50 12/27/16 00:00 96.9 54 15 146/81 90 12/26/16 21:28 93 Venturi Mask 6.00 35 12/26/16 21:20 Venturi Mask 6.00 35 12/26/16 20:00 96.1 73 16 133/75 90 12/26/16 16:45 97.4 74 22 126/60 91 12/26/16 15:51 94 Venturi Mask 6.00 35 12/26/16 12:35 99.2 85 22 130/68 93 12/26/16 11:20 95 Non-Rebreather 10.00 I/O 12/26/16 12/26/16 12/26/16 12/27/16 12/27/16 12/27/16 06:59 14:59 22:59 06:59 14:59 22:59 Intake Total 240 ml 720 ml 240 ml 330 ml Balance 240 ml 720 ml 240 ml 330 ml Intake Oral 240 ml 720 ml 240 ml 330 ml # Voids 1 3 1 2 # Bowel Movements 2 Result Diagram: 12/24/16 0603 12/24/16 0603 Objective Remarks GENERAL: Alert, NAD. SKIN: Warm and dry. HEAD: Normocephalic. EYES: No scleral icterus. No injection or drainage. NECK: Supple, trachea midline. No JVD or lymphadenopathy. CARDIOVASCULAR: Regular rate and rhythm without murmurs, gallops, or rubs. RESPIRATORY: Moderate air entry. No appreciable wheezing. Diminished breath sound. GASTROINTESTINAL: Abdomen soft, non-tender, nondistended. MUSCULOSKELETAL: No cyanosis, or edema. BACK: Nontender without obvious deformity. No CVA tenderness. Procedures 12/05/2016 Echo CONCLUSIONS Normal left ventricular size. Mild to moderate concentric left ventricular hypertrophy. The left ventricular systolic function is hyperdynamic with an estimated ejection fraction in the range of 65- 70%. Doppler parameters are consistent with impaired left ventricular relaxtion ( grade 1 diastolic dysfunction). Structurally normal mitral valve. Mild mitral valve regurgitation. Moderate mitral annular calcification. Structurally normal tricuspid valve. There is mild tricuspid valve regurgitation. Normal estimated pulmonary pressures. A/P Problem List: (1) Acute respiratory failure with hypoxia and hypercapnia ICD Code: J96.01 Status: Acute (2) Chronic obstructive pulmonary disease with acute exacerbation ICD Code: J44.1 Status: Acute (3) Hypoalbuminemia ICD Code: E88.09 Status: Chronic Assessment and Plan Ms. Diaz is a 76 year old female with a history of COPD who was admitted to the hospital due to shortness of breath. Due to hypercapnia and lethargy, patient was intubated in the ED and was managed in the ICU. She was extubated on 12/07/2016 and subsequently patient was transferred to the hospitalist service on 12/10/2016. - Acute respiratory failure - hypoxic and hypercapnic. - Currently on Non-rebreather requiring 35-50% O2. - Titrate down O2 requirements to keep O2 sat > 88%. - Provide scheduled DuoNeb as well as PRN - Patient received abx, no further abx. - Continue low dose Xanax. - Continue Pulmicort - Continue PO prednisone 20mg BID. - Hypertension - Diastolic heart failure - Continue Metoprolol 50mg Q12hrs. - Continue Amlodipine 5mg Qday and Lasix 20mg Qday. - Hyperglycemia - Continue sliding scale insulin. - Hemoglobin A1c 6.1. Patient will benefit from metformin which we can start on discharge. - Hypothyroidism - Continue Levothyroxine 25mcg Qday. - History of bilateral posterior tibial nonocclusive DVT - Continue Xarelto 20mg Qday. Full code. Xarelto. Dorina Barrios DO Dec 27, 2016 9:51 am Dorina Barrios DO Dec 27, 2016 09:51
[2016-12-27] MEDS: oxyCODONE/ACETAMINOPHEN 5 MG/325 MG TAB PO PRN ×2 (12:58→23:29)
[2016-12-27] MEDS: POLYETHYLENE GLYCOL 17 GM PKG PO SCH (19:44)
[2016-12-28] VITALS (9 sets, daily range): BP systolic 124–160; BP diastolic 58–86; PULSE 56–77; RESP 15–22; TEMP 97.1–98.6; O2SAT 88–94
[2016-12-28] MEDS: CHLORHEXIDINE GLUCONATE 2 % 1 PACK (2 CLOTHS) TOP SCH (03:14)
[2016-12-28] MEDS: LEVOTHYROXINE SODIUM 25 MCG TAB PO SCH (04:28)
[2016-12-28] MEDS: METOCLOPRAMIDE HCL 10 MG/2 ML VIAL IV PUSH SCH ×3 (04:38→21:35)
[2016-12-28] MEDS: INSULIN ASPART SUPPLEMENTAL SCALE SQ SCH ×4 (06:01→21:47)
[2016-12-28] MEDS: CHLORHEXIDINE 0.12% (ORAL KIT) 15 ML CUP MT SCH ×2 (08:00→20:00)
[2016-12-28] MEDS: oxyCODONE/ACETAMINOPHEN 5 MG/325 MG TAB PO PRN (08:01)
[2016-12-28] MEDS: RESP: BUDESONIDE 0.5 MG/2 ML NEB NEB SCH ×2 (08:36→20:27)
[2016-12-28] MEDS: RESP: ALBUTEROL 2.5 MG/IPRATROPIUM 0.5 MG NEB (SCH) NEB ×2 (08:36→12:01)
--- NOTE | 2016-12-28 10:00 | HHI.PR ---
Subjective Remarks Follow up for acute respiratory failure, COPD exacerbation. Patient is doing well. Sitting in her chair, currently on 4L of O2 via NC. No fever, chills. Objective Vitals Vital Signs Date Time Temp Pulse Resp B/P Pulse Ox O2 Delivery O2 Flow Rate FiO2 12/28/16 08:38 94 Nasal Cannula 4.00 12/28/16 04:00 97.1 56 15 149/70 93 12/28/16 00:00 98.6 65 16 132/67 88 12/27/16 21:05 Nasal Cannula 4.00 50 Humidified 12/27/16 20:22 91 Nasal Cannula 4.00 12/27/16 20:00 97.1 71 16 121/60 88 12/27/16 16:00 97.1 69 20 132/68 92 12/27/16 12:00 Nasal Cannula 6.00 12/27/16 12:00 98.4 58 20 131/73 91 I/O 12/27/16 12/27/16 12/27/16 12/28/16 12/28/16 12/28/16 07:00 15:00 23:00 07:00 15:00 23:00 Intake Total 330 ml 640 ml 960 ml Balance 330 ml 640 ml 960 ml Intake Oral 330 ml 640 ml 960 ml # Voids 2 3 2 5 Result Diagram: 12/24/16 0603 12/24/16 0603 Imaging Last Impressions Chest X-Ray 12/15/16 0800 Signed Impressions: Service Date/Time: Thursday, December 15, 2016 08:00 - CONCLUSION: Stable chest x-ray with bibasilar opacity representing pleural effusions with associated volume loss and/or airspace consolidation. Jasper Head MD Renal Ultrasound 12/04/16 0000 Signed Impressions: Service Date/Time: November 17:52 - CONCLUSION: 1. Numerous cysts and chronic parenchymal disease of both kidneys. No evidence of obstructive uropathy or other acute abnormality. 2. Fuentes catheter present. Urinary bladder grossly unremarkable. 3. Cholelithiasis incidentally noted. Jasper Sprinegr MD Lower Extremity Ultrasound 12/03/16 0000 Signed Impressions: Service Date/Time: Saturday, December 03, 2016 09:17 - CONCLUSION: Nonocclusive deep venous thrombus within the posterior tibial veins bilaterally. Galen Pierre MD Liver Ultrasound 12/02/16 0000 Signed Impressions: Service Date/Time: Friday, December 02, 2016 17:19 - CONCLUSION: 1. Common bile duct upper limits of normal caliber for a patient this age. No duct stone. 2. Several stones in the gallbladder measuring up to 14 mm in size. No evidence of acute cholecystitis Jasper Springer MD Chest CT 12/02/16 0000 Signed Impressions: Service Date/Time: Friday, December 02, 2016 10:46 - CONCLUSION: 1. Small bilateral pleural effusions with adjacent alveolar consolidations (right slightly worse than left) consistent with atelectasis and/or pneumonia. Clinical correlation is recommended. 2. Patchiness within the right upper lobe consistent with possible pneumonia. Clinical correlation is recommended. 3. Cardiomegaly, coronary artery calcifications and mitral annulus calcifications. 4. 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 5. Cholelithiasis. 6. Multiple simple and complex renal cysts bilaterally. 7. Degenerative changes and scoliosis of the thoracolumbar spine. 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 Anuradha Anthony MD Objective Remarks GENERAL: Alert, NAD. SKIN: Warm and dry. HEAD: Normocephalic. EYES: No scleral icterus. No injection or drainage. NECK: Supple, trachea midline. No JVD or lymphadenopathy. CARDIOVASCULAR: Regular rate and rhythm without murmurs, gallops, or rubs. RESPIRATORY: Moderate air entry. No appreciable wheezing. Diminished breath sound. GASTROINTESTINAL: Abdomen soft, non-tender, nondistended. MUSCULOSKELETAL: No cyanosis, or edema. BACK: Nontender without obvious deformity. No CVA tenderness. Procedures 12/05/2016 Echo CONCLUSIONS Normal left ventricular size. Mild to moderate concentric left ventricular hypertrophy. The left ventricular systolic function is hyperdynamic with an estimated ejection fraction in the range of 65- 70%. Doppler parameters are consistent with impaired left ventricular relaxtion ( grade 1 diastolic dysfunction). Structurally normal mitral valve. Mild mitral valve regurgitation. Moderate mitral annular calcification. Structurally normal tricuspid valve. There is mild tricuspid valve regurgitation. Normal estimated pulmonary pressures. A/P Problem List: (1) Acute respiratory failure with hypoxia and hypercapnia ICD Code: J96.01 Status: Acute (2) Chronic obstructive pulmonary disease with acute exacerbation ICD Code: J44.1 Status: Acute (3) Hypoalbuminemia ICD Code: E88.09 Status: Chronic Assessment and Plan Ms. Diaz is a 76 year old female with a history of COPD who was admitted to the hospital due to shortness of breath. Due to hypercapnia and lethargy, patient was intubated in the ED and was managed in the ICU. She was extubated on 12/07/2016 and subsequently patient was transferred to the hospitalist service on 12/10/2016. - Acute respiratory failure - hypoxic and hypercapnic. - Currently on Non-rebreather requiring 35-50% O2. - Titrate down O2 requirements to keep O2 sat > 88%. Currently doing well on 4L. - Provide scheduled DuoNeb as well as PRN - Patient received abx, no further abx. - Continue low dose Xanax. - Continue Pulmicort - Reduce prednisone from 20mg BID to 15mg BID. - Hypertension - Diastolic heart failure - Continue Metoprolol 50mg Q12hrs. - Continue Amlodipine 5mg Qday and Lasix 20mg Qday. - Hyperglycemia - Continue sliding scale insulin. Bloog glucose is somewhat high 170, 257. - Hemoglobin A1c 6.1. If if is persistently high, we will start Levemir. - Hypothyroidism - Continue Levothyroxine 25mcg Qday. - History of bilateral posterior tibial nonocclusive DVT - Continue Xarelto 20mg Qday. Full code. Xarelto. Dorina Barrios DO Dec 28, 2016 9:59 am
[2016-12-28] MEDS: FERROUS SULFATE 300 MG /5ML UDC PO SCH ×2 (10:20→21:35)
[2016-12-28] MEDS: GABAPENTIN 300 MG CAP PO SCH ×3 (10:21→18:10)
[2016-12-28] MEDS: METOPROLOL TARTRATE 25 MG TAB PO SCH ×2 (10:21→21:35)
[2016-12-28] MEDS: LACTOBACILLUS ACIDOPHILUS TAB PO SCH ×2 (10:21→21:34)
[2016-12-28] MEDS: DOCUSATE SODIUM 50 MG/SENNA 8.6 MG TAB PO SCH ×2 (10:21→21:34)
[2016-12-28] MEDS: FUROSEMIDE 20 MG TAB PO SCH (10:22)
[2016-12-28] MEDS: FAMOTIDINE 20 MG TAB NG SCH (10:22)
[2016-12-28] MEDS: predniSONE 20 MG TAB PO SCH (10:22)
[2016-12-28] MEDS: RIVAROXABAN 20 MG TAB PO SCH (10:22)
[2016-12-28] MEDS: CYCLOBENZAPRINE HCL 10 MG TAB PO SCH ×3 (10:23→18:11)
[2016-12-28] MEDS: amLODIPine BESYLATE 5 MG TAB PO SCH (10:23)
[2016-12-28] MEDS: SODIUM CHLORIDE 0.9% FLUSH 10 ML FLUSH SCH ×2 (10:23→21:49)
[2016-12-28] MEDS: RESP: ALBUTEROL 2.5 MG/IPRATROPIUM 0.5 MG NEB (PRN) NEB ×2 (17:17→20:27)
[2016-12-28] MEDS: POLYETHYLENE GLYCOL 17 GM PKG PO SCH (21:00)
[2016-12-28] MEDS: predniSONE 5 MG TAB PO SCH (21:34)
[2016-12-29] VITALS (8 sets, daily range): BP systolic 127–155; BP diastolic 66–79; PULSE 57–68; RESP 15–20; TEMP 96.7–97.9; O2SAT 88–93
[2016-12-29] MEDS: oxyCODONE/ACETAMINOPHEN 5 MG/325 MG TAB PO PRN ×3 (03:38→17:11)
[2016-12-29] MEDS: CHLORHEXIDINE GLUCONATE 2 % 1 PACK (2 CLOTHS) TOP SCH (04:00)
[2016-12-29] MEDS: LEVOTHYROXINE SODIUM 25 MCG TAB PO SCH (06:17)
[2016-12-29] MEDS: METOCLOPRAMIDE HCL 10 MG/2 ML VIAL IV PUSH SCH ×3 (06:19→21:12)
[2016-12-29] MEDS: INSULIN ASPART SUPPLEMENTAL SCALE SQ SCH ×4 (06:26→21:00)
[2016-12-29] MEDS: FERROUS SULFATE 300 MG /5ML UDC PO SCH ×2 (07:56→21:10)
[2016-12-29] MEDS: LACTOBACILLUS ACIDOPHILUS TAB PO SCH ×2 (07:56→21:11)
[2016-12-29] MEDS: FUROSEMIDE 20 MG TAB PO SCH (07:56)
[2016-12-29] MEDS: FAMOTIDINE 20 MG TAB NG SCH (07:56)
[2016-12-29] MEDS: predniSONE 5 MG TAB PO SCH ×2 (07:57→21:11)
[2016-12-29] MEDS: METOPROLOL TARTRATE 25 MG TAB PO SCH ×2 (07:57→21:11)
[2016-12-29] MEDS: RIVAROXABAN 20 MG TAB PO SCH (07:57)
[2016-12-29] MEDS: DOCUSATE SODIUM 50 MG/SENNA 8.6 MG TAB PO SCH ×2 (07:57→21:19)
[2016-12-29] MEDS: GABAPENTIN 300 MG CAP PO SCH ×3 (07:57→17:11)
[2016-12-29] MEDS: CYCLOBENZAPRINE HCL 10 MG TAB PO SCH ×3 (07:58→17:12)
[2016-12-29] MEDS: amLODIPine BESYLATE 5 MG TAB PO SCH (07:58)
[2016-12-29] MEDS: CHLORHEXIDINE 0.12% (ORAL KIT) 15 ML CUP MT SCH ×2 (08:00→20:00)
[2016-12-29] MEDS: RESP: BUDESONIDE 0.5 MG/2 ML NEB NEB SCH ×2 (08:12→21:21)
[2016-12-29] MEDS: SODIUM CHLORIDE 0.9% FLUSH 10 ML FLUSH SCH ×2 (09:00→21:19)
--- NOTE | 2016-12-29 09:44 | HHI.PR ---
Subjective Remarks Follow up for acute respiratory failure, COPD exacerbation. Patient is currently doing well. Denies any chest pain, shortness of breath, fever or chills. She is requiring 4.5 L of oxygen via nasal cannula. Her oxygen saturation is 92, 93%. Objective Vitals Vital Signs Date Time Temp Pulse Resp B/P Pulse Ox O2 Delivery O2 Flow Rate FiO2 12/29/16 08:14 92 Nasal Cannula 4.50 12/29/16 07:30 97.6 62 20 155/79 93 12/29/16 04:56 16 12/29/16 04:00 97.2 59 15 135/74 90 12/29/16 00:00 96.7 66 16 135/72 90 12/28/16 21:55 92 Nasal Cannula 4.00 12/28/16 20:27 92 Nasal Cannula 4.50 12/28/16 20:00 97.4 77 18 126/62 90 12/28/16 16:00 97.8 65 16 152/78 94 12/28/16 12:00 97.2 58 18 124/58 91 12/28/16 10:30 74 148/86 I/O 12/28/16 12/28/16 12/28/16 12/29/16 12/29/16 12/29/16 07:00 15:00 23:00 07:00 15:00 23:00 Intake Total 960 ml 1400 ml 720 ml Output Total 200 ml 200 ml Balance 960 ml -200 ml 1200 ml 720 ml Intake Oral 960 ml 1400 ml 720 ml Output Urine Total 200 ml 200 ml Stool Total 0 ml # Voids 5 7 5 # Bowel Movements 1 Imaging Last Impressions Chest X-Ray 12/15/16 0800 Signed Impressions: Service Date/Time: Thursday, December 15, 2016 08:00 - CONCLUSION: Stable chest x-ray with bibasilar opacity representing pleural effusions with associated volume loss and/or airspace consolidation. Jasper Head MD Renal Ultrasound 12/04/16 0000 Signed Impressions: Service Date/Time: November 17:52 - CONCLUSION: 1. Numerous cysts and chronic parenchymal disease of both kidneys. No evidence of obstructive uropathy or other acute abnormality. 2. Fuentes catheter present. Urinary bladder grossly unremarkable. 3. Cholelithiasis incidentally noted. Jasper Springer MD Lower Extremity Ultrasound 12/03/16 0000 Signed Impressions: Service Date/Time: Saturday, December 03, 2016 09:17 - CONCLUSION: Nonocclusive deep venous thrombus within the posterior tibial veins bilaterally. Galen Pierre MD Liver Ultrasound 12/02/16 0000 Signed Impressions: Service Date/Time: Friday, December 02, 2016 17:19 - CONCLUSION: 1. Common bile duct upper limits of normal caliber for a patient this age. No duct stone. 2. Several stones in the gallbladder measuring up to 14 mm in size. No evidence of acute cholecystitis Jasper Springer MD Chest CT 12/02/16 0000 Signed Impressions: Service Date/Time: Friday, December 02, 2016 10:46 - CONCLUSION: 1. Small bilateral pleural effusions with adjacent alveolar consolidations (right slightly worse than left) consistent with atelectasis and/or pneumonia. Clinical correlation is recommended. 2. Patchiness within the right upper lobe consistent with possible pneumonia. Clinical correlation is recommended. 3. Cardiomegaly, coronary artery calcifications and mitral annulus calcifications. 4. 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 5. Cholelithiasis. 6. Multiple simple and complex renal cysts bilaterally. 7. Degenerative changes and scoliosis of the thoracolumbar spine. 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 Anuradha Anthony MD Objective Remarks GENERAL: Alert, NAD. SKIN: Warm and dry. HEAD: Normocephalic. EYES: No scleral icterus. No injection or drainage. NECK: Supple, trachea midline. No JVD or lymphadenopathy. CARDIOVASCULAR: Regular rate and rhythm without murmurs, gallops, or rubs. RESPIRATORY: Moderate air entry. No appreciable wheezing. Diminished breath sound. GASTROINTESTINAL: Abdomen soft, non-tender, nondistended. MUSCULOSKELETAL: No cyanosis, or edema. BACK: Nontender without obvious deformity. No CVA tenderness. Procedures 12/05/2016 Echo CONCLUSIONS Normal left ventricular size. Mild to moderate concentric left ventricular hypertrophy. The left ventricular systolic function is hyperdynamic with an estimated ejection fraction in the range of 65- 70%. Doppler parameters are consistent with impaired left ventricular relaxtion ( grade 1 diastolic dysfunction). Structurally normal mitral valve. Mild mitral valve regurgitation. Moderate mitral annular calcification. Structurally normal tricuspid valve. There is mild tricuspid valve regurgitation. Normal estimated pulmonary pressures. A/P Problem List: (1) Acute respiratory failure with hypoxia and hypercapnia ICD Code: J96.01 Status: Acute (2) Chronic obstructive pulmonary disease with acute exacerbation ICD Code: J44.1 Status: Acute (3) Hypoalbuminemia ICD Code: E88.09 Status: Chronic Assessment and Plan Ms. Diaz is a 76 year old female with a history of COPD who was admitted to the hospital due to shortness of breath. Due to hypercapnia and lethargy, patient was intubated in the ED and was managed in the ICU. She was extubated on 12/07/2016 and subsequently patient was transferred to the hospitalist service on 12/10/2016. - Acute respiratory failure - hypoxic and hypercapnic. - Currently on 4.5 L of oxygen via nasal cannula and O2 sat 92%. We'll try to do down to 4 L. - Titrate down O2 requirements to keep O2 sat > 88%. - Provide scheduled DuoNeb as well as PRN - Patient received abx, no further abx. - Continue low dose Xanax. - Continue Pulmicort - Reduced prednisone from 20mg BID to 15mg BID on 12/28/2016 - Hypertension - Diastolic heart failure - Continue Metoprolol 50mg Q12hrs. - Continue Amlodipine 5mg Qday and Lasix 20mg Qday. - Hyperglycemia - Continue sliding scale insulin. Blood glucose 160, 154. - Hemoglobin A1c 6.1. May need Metformin in the outpatient setting. - Hypothyroidism - Continue Levothyroxine 25mcg Qday. - History of bilateral posterior tibial nonocclusive DVT - Continue Xarelto 20mg Qday. Full code. Xarelto. Discharge plan: Discussed with CM. If patient remains on 4L, we might be able to discharge patient to SNF. However, there is financial problems with SNF placement. Dorina Barrios DO Dec 29, 2016 9:43 am
--- NOTE | 2016-12-29 12:19 | HHI.HCPN ---
Reason for visit a. To assist with evaluation and management of symptoms including: SOB, anxiety, debility. b. To assist medical decision maker(s) with: better understanding of current medical conditions; weighing benefits/burdens of medical treatment options; making medical treatment decisions. . Subjective/Interval History Patient seen and examined in room 723. Alert and oriented to person, place, situation. Patient denies pain, complains of ongoing intermittent shortness of breath. Patient appears short of breath during conversation, using accessory muscles. Patient has been off partial nonrebreather mask for approximately 48 hours per nursing report; currently tolerating 4L via nasal cannula with oxygen saturation in the low 90s. Afebrile. Hemodynamically stable. No recent labs or imaging. Patient remains weak; she states she has been unsteady on her feet and requires assistance to get out of bed. Speech therapy, occupational therapy and physical therapy continue to follow. Case management working toward SNF placement when patient is stable. Palliative care again discussed aggressive vs. comfort focused goals with the patient. She indicates she WOULD want reintubation should her condition decline. Goals remain aggressive at this time and are unlikely to change. Patient states, "I did it before (rehabilitation) and I got better couple times. I'm a negative whole lot better but at least I can walk my dog and be at home. I have my own room and bathroom there. " . Family/friend interactions Patient requests that Palliative care NOT contact her family at this time. Palliative care contact information was again left with the patient who stated she would give the information to her son and he would contact palliative care if he had any questions. Advance Directives Health Care Surrogate: Copy in medical record Advance Directive Specifics Date completed: 12/17/2016 . Health Care Surrogate(s): Patient's son (Ga Diaz) is designated as the primary health care surrogate decision maker. The patient has designated her daughter (Mattie Diaz) as the alternate health care surrogate decision maker. . Documented care wishes: Healthcare surrogate form was completed today (12/17/2016). Document was faxed to HIM to be scanned into the patient's EMR; copies were also placed and the patient's chart and left at patient's bedside. . Objective Vital Signs Date Time Temp Pulse Resp B/P Pulse Ox O2 Delivery O2 Flow Rate FiO2 12/29/16 08:14 92 Nasal Cannula 4.50 12/29/16 08:00 Nasal Cannula 4.00 12/29/16 07:30 97.6 62 20 155/79 93 12/29/16 04:56 16 12/29/16 04:00 97.2 59 15 135/74 90 12/29/16 00:00 96.7 66 16 135/72 90 12/28/16 21:55 92 Nasal Cannula 4.00 12/28/16 20:27 92 Nasal Cannula 4.50 12/28/16 20:00 97.4 77 18 126/62 90 12/28/16 16:00 97.8 65 16 152/78 94 12/28/16 12:00 97.2 58 18 124/58 91 Intake & Output 12/29/16 12/29/16 07:00 19:00 Intake Total 960 ml Balance 960 ml Intake Oral 960 ml # Voids 6 . Physical Exam CONSTITUTIONAL/GENERAL: This is a chronically ill appearing, elderly female patient in no acute distress. TUBES/LINES/DRAINS: PIV 1 SKIN: Skin appears thin and fragile. No jaundice, rashes, or lesions. Skin temperature appropriate. Not diaphoretic. HEAD: Atraumatic. Normocephalic. EYES: PERRLA. No scleral icterus. No injection or drainage. Fundi not examined. ENT: Hearing grossly normal. Nose without bleeding or purulent drainage. NECK: Trachea midline. Supple, nontender. No palpable thyroid enlargement or nodularity. CARDIOVASCULAR: Regular rate and rhythm without murmurs, gallops, or rubs. No JVD. Peripheral pulses symmetric. RESPIRATORY/CHEST: Respirations mildly labored on partial nonrebreather. Breath sounds significantly diminished bilaterally. GASTROINTESTINAL: Abdomen soft, non-tender, nondistended. No guarding. Bowel sounds present. GENITOURINARY: Without palpable bladder distension. MUSCULOSKELETAL: Extremities without clubbing, cyanosis, or edema. LYMPHATICS: No palpable cervical or supraclavicular adenopathy. NEUROLOGICAL: Awake and oriented to person place and situation. Follows commands. Moves all extremities. Able to make needs known. PSYCHIATRIC: No obvious anxiety/depression. no apparent hallucinations or other psychotic thought process. . Diagnostic Tests Procedures 12/01/2016: Intubation 12/07/2016: Extubation . Assessment and Plan Disease Oriented Problem List: (1) Acute respiratory failure with hypoxia (2) Chronic obstructive pulmonary disease with acute exacerbation Comment: Pulmicort 0.5mg neb inhalation q12 hours Solu-Medrol 40 mg IV every 8 hours Bronchodilators Pulmonology, Dr. Cummings, continues to follow. (3) Pneumonia Comment: CT chest revealed bilateral lower lobe pneumonia/right upper lobe pneumonia Aztreonam, Azithromycin, Flagyl from 12/02/16-12/09. (4) Pleural effusion (5) CHF (congestive heart failure) (6) DVT of lower extremity, bilateral Comment: Bilateral posterior tibial nonocclusive DVT On Xarelto 20mg PO daily (7) Anemia (8) Hypertension Comment: On Norvasc 5mg daily and Metoprolol 50mg PO BID (9) Hypoalbuminemia (10) Fibromyalgia (11) Cholelithiasis Symptom Scale: (1) Debility, unspecified (2) Anxiety (3) Shortness of breath Pertinent Non-Medical Issues Psychosocial: Patient is originally from [place], [place]. Her father in a MVA and when the patient was 4 years old. She has one sister (Madhavi) who lives in [place], [place]. The patient states they are very close. The patient was to her first for 10 years, and her second for approximately 44 years. She is . The patient had 8 children, but 2 are now . (6 living children: 4 daughters and 2 sons) She moved to [place] approximately 17 years ago and is living with her son (Ga). 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 Spiritual: Baptism cherise Legal: Patient's son (Ga Diaz) is designated as the primary health care surrogate decision maker. The patient has designated her daughter (Mattie Diaz ) as the alternate health care surrogate decision maker. Ethical issues impacting care: No known ethical issues impacting care at this time. . Important Contacts Ga Diaz, son: [phone] Mattie Diaz, daughter: [phone] . Prognosis Patient is a 76-year-old female with multiple comorbid conditions. She has been hospitalized 4 to 5 times since 09/10/2016 with COPD exacerbations, CAP and respiratory failure requiring intubation. Patient has had an acute change in her disease trajectory over the past 6 months as evidenced by multiple hospitalizations, weight loss, progressively worsening dyspnea with increased oxygen requirements, increased weakness/fatigue. Poor half-way prognosis. . Code Status: Full Code Plan * Decision-making: Patient shows insight and judgment related to her medical conditions, currently capacitated to participate in her own medical decision making. Healthcare surrogate form was completed today (12/17/2016).Patient's son (Ga Diaz) is designated as the primary health care surrogate decision maker. The patient has designated her daughter (Mattie Diaz) as the alternate health care surrogate decision maker. * FULL CODE * Goals: Goals remain aggressive. Patient desires reintubation if needed. Desires rehab placement upon discharge. * Palliative care again discussed aggressive vs. comfort focused goals with the patient. She indicates she WOULD want reintubation should her condition decline. Goals remain aggressive at this time and are unlikely to change. Patient states, "I did it before (rehabilitation) and I got better couple times. I'm a negative whole lot better but at least I can walk my dog and be at home. I have my own room and bathroom there. " * Patient does [facility]; [facility], but case management was unable to confirm this. * Symptom management-shortness of breath: Educated patient on non- pharmacological management of shortness of breath i.e environmental control, pacing activities, limiting stress, relaxation techniques, position. On Solumedrol. Pulmicort and PRN Duoneb. * Symptom management-debility: Patient having ongoing weakness, reporting increased difficulty completing ADLs and increased fatigue. She states she has been unsteady on her feet and requires assistance to get out of bed. Physical therapy is following. Patient would benefit from SNF placement upon discharge for rehab. * Symptom management- anxiety: Intermittent anxiety secondary to COPD related shortness of breath. Has PRN Alprazolam 0.25mg PO every 8 hours available. * No new medication recommendations at this time. * Patient requests that Palliative care NOT contact her family at this time. Palliative care contact information was again left with the patient who stated she would give the information to her son and he would contact palliative care if he had any questions. * Discussed patient with outsole caser (Arely) and nurse (Meri). * Palliative care will continue to follow this patient throughout her hospitalization to establish trust, assist with symptom management and clarification of medical treatment goals. . . Attestation To help prompt me to consider important information that might be impacting today's encounter and assessment, information from prior notes written by myself or my colleagues may have been "brought forward" into today's note. My signature on this note, however, is an attestation that I personally performed the exam, history, and/or decision-making noted today, and, unless otherwise indicated, the interactions with patient, family, and staff as well as the review of records all occurred today. I also attest that the listed assessment and stated plan reflect my best clinical judgment today based on the combination of historical information, prior notes, and today's exam/ interactions. When time spent is documented, it refers only to time spent today by the signer, or if indicated, combined time spent today by collaborating physician/nurse practitioner. . Mely Driver Dec 29, 2016 12:19
[2016-12-29] MEDS: RESP: ALBUTEROL 2.5 MG/IPRATROPIUM 0.5 MG NEB (PRN) NEB (12:39)
--- NOTE | 2016-12-29 18:51 | HHI.PR ---
Subjective Remarks 76 YOWf with Severe COPD, known to me from office has multiple admissions in the hosp Extubated 12/07 Apppeitie improving less sob, over all feels better On 4 LNC No Cough or sputum. Objective Vital Signs Vital Signs Date Time Temp Pulse Resp B/P Pulse Ox O2 Delivery O2 Flow Rate FiO2 12/29/16 15:50 97.9 67 20 142/71 90 12/29/16 11:30 97.8 57 20 147/70 91 12/29/16 08:14 92 Nasal Cannula 4.50 12/29/16 08:00 Nasal Cannula 4.00 12/29/16 07:30 97.6 62 20 155/79 93 12/29/16 04:56 16 12/29/16 04:00 97.2 59 15 135/74 90 12/29/16 00:00 96.7 66 16 135/72 90 12/28/16 21:55 92 Nasal Cannula 4.00 12/28/16 20:27 92 Nasal Cannula 4.50 12/28/16 20:00 97.4 77 18 126/62 90 I/O 12/28/16 12/28/16 12/28/16 12/29/16 12/29/16 12/29/16 07:00 15:00 23:00 07:00 15:00 23:00 Intake Total 960 ml 1400 ml 720 ml 1520 ml Output Total 200 ml 200 ml 950 ml Balance 960 ml -200 ml 1200 ml 720 ml 570 ml Intake Oral 960 ml 1400 ml 720 ml 1520 ml Output Urine Total 200 ml 200 ml 950 ml Stool Total 0 ml # Voids 5 7 5 1 # Bowel Movements 1 0 Objective Remarks GENERAL: MBMN Wf, on vent, sedated SKIN: Warm and dry. HEAD: Normocephalic. EYES: No scleral icterus. No injection or drainage. NECK: Supple, trachea midline. No JVD or lymphadenopathy. CARDIOVASCULAR: Regular rate and rhythm without murmurs, gallops, or rubs. RESPIRATORY: Breath sounds equal bilaterally. No accessory muscle use. GASTROINTESTINAL: Abdomen soft, non-tender, nondistended. MUSCULOSKELETAL: No cyanosis, or edema. BACK: Nontender without obvious deformity. No CVA tenderness. A/P Assessment and Plan VDRF, s/p extubation Severe COPD Pneumonia AF CHF Pleural effusion PLAN: Aerosol nebs Cont Abx Xarelto 20 mg daily Diurease Will need trilogy for home use. cont NC Supplement 02 to keep sat 88-92% CPAP prn DC plans for SNF Arvind Cummings MD Dec 29, 2016 18:51
[2016-12-29] MEDS: POLYETHYLENE GLYCOL 17 GM PKG PO SCH (21:19)
[2016-12-30] VITALS: BP 140/61; PULSE 53; RESP 20; TEMP 97; O2SAT 96
[2016-12-30] MEDS: CHLORHEXIDINE GLUCONATE 2 % 1 PACK (2 CLOTHS) TOP SCH (03:13)
[2016-12-30] MEDS: oxyCODONE/ACETAMINOPHEN 5 MG/325 MG TAB PO PRN ×2 (03:44→12:29)
[2016-12-30 04:00] VITALS: BP 148/79; PULSE 54; RESP 18; TEMP 96.9; O2SAT 93
[2016-12-30] MEDS: METOCLOPRAMIDE HCL 10 MG/2 ML VIAL IV PUSH SCH ×2 (05:01→12:32)
[2016-12-30] MEDS: ONDANSETRON HCL 4 MG/2 ML VIAL IV PRN (05:02)
[2016-12-30] MEDS: LEVOTHYROXINE SODIUM 25 MCG TAB PO SCH (05:05)
[2016-12-30] MEDS: INSULIN ASPART SUPPLEMENTAL SCALE SQ SCH ×2 (05:36→11:00)
[2016-12-30 07:50] VITALS: BP 135/72; PULSE 60; RESP 20; TEMP 98.4; O2SAT 96
[2016-12-30] MEDS: RESP: BUDESONIDE 0.5 MG/2 ML NEB NEB SCH (08:14)
[2016-12-30 08:16] VITALS: O2SAT 94
[2016-12-30] MEDS: DOCUSATE SODIUM 50 MG/SENNA 8.6 MG TAB PO SCH (09:24)
[2016-12-30] MEDS: CYCLOBENZAPRINE HCL 10 MG TAB PO SCH ×2 (09:24→12:28)
[2016-12-30] MEDS: FUROSEMIDE 20 MG TAB PO SCH (09:24)
[2016-12-30] MEDS: FERROUS SULFATE 300 MG /5ML UDC PO SCH (09:24)
[2016-12-30] MEDS: GABAPENTIN 300 MG CAP PO SCH ×2 (09:24→12:29)
[2016-12-30] MEDS: METOPROLOL TARTRATE 25 MG TAB PO SCH (09:24)
[2016-12-30] MEDS: FAMOTIDINE 20 MG TAB NG SCH (09:24)
[2016-12-30] MEDS: amLODIPine BESYLATE 5 MG TAB PO SCH (09:24)
[2016-12-30] MEDS: RIVAROXABAN 20 MG TAB PO SCH (09:25)
[2016-12-30] MEDS: LACTOBACILLUS ACIDOPHILUS TAB PO SCH (09:25)
[2016-12-30] MEDS: SODIUM CHLORIDE 0.9% FLUSH 10 ML FLUSH SCH (09:26)
[2016-12-30] MEDS: predniSONE 5 MG TAB PO SCH (09:30)
--- NOTE | 2016-12-30 09:51 | HHI.DS ---
Discharge Summary Admission Date Dec 02, 2016 at 12:01 am Discharge Date: Dec 30, 2016 Admitting Diagnosis PNA, Hypercarbia, Hypoxia, AMS (1) Acute respiratory failure with hypoxia and hypercapnia ICD Code: J96.01 (2) Chronic obstructive pulmonary disease with acute exacerbation ICD Code: J44.1 (3) Hypoalbuminemia ICD Code: E88.09 Procedures 12/05/2016 Echo CONCLUSIONS Normal left ventricular size. Mild to moderate concentric left ventricular hypertrophy. The left ventricular systolic function is hyperdynamic with an estimated ejection fraction in the range of 65- 70%. Doppler parameters are consistent with impaired left ventricular relaxtion ( grade 1 diastolic dysfunction). Structurally normal mitral valve. Mild mitral valve regurgitation. Moderate mitral annular calcification. Structurally normal tricuspid valve. There is mild tricuspid valve regurgitation. Normal estimated pulmonary pressures. Brief History - From Admission 76-year-old female presents with a history of shortness of breath that started at home. She has also altered mental status. Normally patient is awake with eyes open and answers questions right away. EMS reports pt received a muscle relaxer just prior to their arrival. She has received albuterol x 2 en route with however her CO2 Climbing on the BiPAP machine and she became more lethargic with less responsiveness. She was intubated in the emergency department by ER attending for an airway protection. Imaging Last Impressions Chest X-Ray 12/15/16 0800 Signed Impressions: Service Date/Time: Thursday, December 15, 2016 08:00 - CONCLUSION: Stable chest x-ray with bibasilar opacity representing pleural effusions with associated volume loss and/or airspace consolidation. Jasper Head MD Renal Ultrasound 12/04/16 0000 Signed Impressions: Service Date/Time: November 17:52 - CONCLUSION: 1. Numerous cysts and chronic parenchymal disease of both kidneys. No evidence of obstructive uropathy or other acute abnormality. 2. Fuentes catheter present. Urinary bladder grossly unremarkable. 3. Cholelithiasis incidentally noted. Jasper Springer MD Lower Extremity Ultrasound 12/03/16 0000 Signed Impressions: Service Date/Time: Saturday, December 03, 2016 09:17 - CONCLUSION: Nonocclusive deep venous thrombus within the posterior tibial veins bilaterally. Galen Pierre MD Liver Ultrasound 12/02/16 0000 Signed Impressions: Service Date/Time: Friday, December 02, 2016 17:19 - CONCLUSION: 1. Common bile duct upper limits of normal caliber for a patient this age. No duct stone. 2. Several stones in the gallbladder measuring up to 14 mm in size. No evidence of acute cholecystitis Jasper Springer MD Chest CT 12/02/16 0000 Signed Impressions: Service Date/Time: Friday, December 02, 2016 10:46 - CONCLUSION: 1. Small bilateral pleural effusions with adjacent alveolar consolidations (right slightly worse than left) consistent with atelectasis and/or pneumonia. Clinical correlation is recommended. 2. Patchiness within the right upper lobe consistent with possible pneumonia. Clinical correlation is recommended. 3. Cardiomegaly, coronary artery calcifications and mitral annulus calcifications. 4. 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 5. Cholelithiasis. 6. Multiple simple and complex renal cysts bilaterally. 7. Degenerative changes and scoliosis of the thoracolumbar spine. 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 Anuradha Anthony MD PE at Discharge GENERAL: Alert, NAD. SKIN: Warm and dry. HEAD: Normocephalic. EYES: No scleral icterus. No injection or drainage. NECK: Supple, trachea midline. No JVD or lymphadenopathy. CARDIOVASCULAR: Regular rate and rhythm without murmurs, gallops, or rubs. RESPIRATORY: Moderate air entry. No appreciable wheezing. Diminished breath sound. GASTROINTESTINAL: Abdomen soft, non-tender, nondistended. MUSCULOSKELETAL: No cyanosis, or edema. BACK: Nontender without obvious deformity. No CVA tenderness. Pt update on day of discharge Ms. Diaz is doing well. Eating at the side of the bed. Currently comfortable on 4L of O2 via NC. No fever, chills. Hospital Course Ms. Diaz is a 76 year old female with a history of COPD who was admitted to the hospital due to shortness of breath. Due to hypercapnia and lethargy, patient was intubated in the ED and was managed in the ICU. She was extubated on 12/07/2016 and subsequently patient was transferred to the hospitalist service on 12/10/2016. - Acute respiratory failure - hypoxic and hypercapnic. - Currently on 4.0 L of oxygen via nasal cannula and O2 sat 92%. - Titrate down O2 requirements to keep O2 sat > 88%. - Provide scheduled DuoNeb as well as PRN - Patient received abx, no further abx. - Continue low dose Xanax. - Continue Pulmicort - Reduced prednisone from 20mg BID to 15mg BID on 12/28/2016. Continue tapering steroid on discharge. - Hypertension - Diastolic heart failure - Continue Metoprolol 50mg Q12hrs. - Continue Amlodipine 5mg Qday and Lasix 20mg Qday. - Hyperglycemia - Continue sliding scale insulin. Blood glucose 160, 154. - Hemoglobin A1c 6.1. May need Metformin in the outpatient setting. - Hypothyroidism - Continue Levothyroxine 25mcg Qday. - History of bilateral posterior tibial nonocclusive DVT - Continue Xarelto 20mg Qday. Pt Condition on Discharge: Stable Discharge Disposition: Discharge to SNF Discharge Time: > 30 minutes Discharge Instructions DIET: Follow Instructions for: Heart Healthy Diet Activities you can perform: Regular-No Restrictions Follow up Referrals: PCP Follow-up - 3-5 Days Pulmonology - 1 Week with Arvind Cummings MD New Medications: Prednisone (21) 5 mg tab Dose Pack (Prednisone (21) 5 mg tab Dose Pack) 5 Mg Dspk 5 MG PO DIRECTED Inflammation #1 Ref 0 DSPK Furosemide (Furosemide) 20 Mg Tab 20 MG PO DAILY Blood Pressure Management #30 TAB Metoprolol Tartrate (Metoprolol Tartrate) 25 Mg Tab 50 MG PO Q12HR Blood Pressure Management #60 TAB Continued Medications: Albuterol Neb (Albuterol Neb) 2.5 Mg/3 Ml Neb 2.5 MG NEB Q2HR NEB While awake PRN SHORTNESS OF BREATH #60 Ref 0 NEBULE Alprazolam (Xanax) 0.25 Mg Tab 0.25 MG PO Q8H PRN ANXIETY #10 Ref 0 TAB (This prescription has been renewed) Amlodipine (Norvasc) 5 Mg Tab 5 MG PO DAILY HYPERTENSION #30 Ref 0 TAB Cyclobenzaprine (Flexeril) 5 Mg Tab 5 MG PO TID Muscle Spasm #90 Ref [address] (Ferrous Sulfate DR) 325 Mg Tabdr 325 MG PO TIDAC Fluticasone-Vilanterol Inh (Breo Ellipta Inh) 100-25 Mcg/Act Inh 1 PUFF INH HS Use daily at the same time. COPD #1 Ref 0 INHALER Gabapentin (Gabapentin) 600 Mg Tab 600 MG PO TID SCIATICA #90 Ref 0 TAB Guaifenesin (Eq Mucus ER) 600 Mg Tab 600 MG PO Q12HR Ipratropium-Albuterol Neb (Duoneb) 0.5-2.5 Mg/3 Ml Neb 1 AMPULE NEB Q4HR NEB COPD Days 30 ML Magnesium Hydroxide Liq (Milk of Magnesia Liq) 400 Mg/5 Ml Susp 30 ML PO DAILY PRN INDIGESTION OR UPSET STOMACH #1 Ref 0 BOTTLE Oxycodone-Acetaminophen (Oxycodone-Acetaminophen) 10-325 mg Tab 1 TAB PO Q6H DO NOT USE THIS MEDICINE IF YOU WILL DRIVE A CAR OR USE A MACHINE, ONLY USE IT WHEN RESTING AT HOME. PRN PAIN #12 Ref 0 TAB (This prescription has been renewed) Polyethylene Glycol 3350 Powder (Miralax Powder) 1 Pow Pow 17 GM PO HS Constipation Probiotic Product (Diff-Stat) 1 Cap Cap 1 CAP PO BID GI PROPHYLAXSIS Rivaroxaban (Xarelto) 20 Mg Tab 20 MG PO DAILY ANTICOAGULATION #30 Ref 0 TAB Spironolactone (Spironolactone) 25 Mg Tab 12.5 MG PO DAILY #15 Ref 0 TAB Discontinued Medications: Levalbuterol Neb (Xopenex Neb) 1.25 Mg/3 Ml Neb 1.25 MG NEB Q2HR NEB PRN SHORTNESS OF BREATH #1 Ref 0 NEBULE Metoprolol Tartrate (Metoprolol Tartrate) 25 Mg Tab 12.5 MG PO Q12HR HOLD FOR SYSTOLIC BLOOD PRESSURE IN 110 MM HG OR BELOW OR HEART RATE IN 60 OR BELOW. HYPERTENSION #60 Ref 0 TAB Prednisone (Prednisone) 10 Mg Tab 10 MG PO DAILY TAKE THREE TABLETS BY MOUTH FOR FOUR DAYS THEN TAKE TWO TABLETS BY MOUTH DAILY FOR FOUR DAYS THEN CONTINUE ONE TABLET DAILY. copd #42 Ref 0 TAB Dorina Barrios DO Dec 30, 2016 09:51
[2016-12-30 11:50] VITALS: BP 125/60; PULSE 55; RESP 20; TEMP 98.1; O2SAT 90
[2016-12-30 15:00] VITALS: BP 116/58; PULSE 51; RESP 20; TEMP 98.8; O2SAT 90
== END 2016-12-30 16:01 | DRG 207 ==
LOC: NEPE 19:34 → NEDA 12-02 00:01 → HIMN 12-02 04:20 → HOCB 12-19 18:48
PROVIDERS: ADMIT Hospitalist; ATTEND Hospitalist
PROC: 0BH17EZ Insertion of Endotracheal Airway into Trachea, Via Natural or Artificial Opening (ICD-10-PCS; principal; 2016-12-02)
PROC: 5A1955Z Respiratory Ventilation, Greater than 96 Consecutive Hours (ICD-10-PCS; 2016-12-02)
DX: J96.01 Acute respiratory failure with hypoxia (principal); J18.9 Pneumonia, unspecified organism; E44.0 Moderate protein-calorie malnutrition; I11.0 Hypertensive heart disease with heart failure; R64 Cachexia; I50.32 Chronic diastolic (congestive) heart failure; Z99.81 Dependence on supplemental oxygen; J44.0 Chronic obstructive pulmonary disease with (acute) lower respiratory infection; J44.1 Chronic obstructive pulmonary disease with (acute) exacerbation; E87.5 Hyperkalemia; E78.5 Hyperlipidemia, unspecified; D64.9 Anemia, unspecified; E03.9 Hypothyroidism, unspecified; K80.20 Calculus of gallbladder without cholecystitis without obstruction; M79.7 Fibromyalgia; J96.02 Acute respiratory failure with hypercapnia; M19.90 Unspecified osteoarthritis, unspecified site; Z86.718 Personal history of other venous thrombosis and embolism; Z92.3 Personal history of irradiation; Z87.891 Personal history of nicotine dependence; Z86.711 Personal history of pulmonary embolism; Z79.01 Long term (current) use of anticoagulants; Z86.73 Personal history of transient ischemic attack (TIA), and cerebral infarction without residual deficits; Z79.891 Long term (current) use of opiate analgesic; R73.9 Hyperglycemia, unspecified; E78.00 Pure hypercholesterolemia, unspecified; F06.4 Anxiety disorder due to known physiological condition; H91.90 Unspecified hearing loss, unspecified ear; K57.90 Diverticulosis of intestine, part unspecified, without perforation or abscess without bleeding; R26.81 Unsteadiness on feet
CPT/HCPCS: 31500; 36600; 70450; 71010; 71250; 76705; 76775; 76937; 80048; 80053; 80076; 80307; 81001; 82570; 82805; 82948; 83036; 83605; 83735; 83880; 84100; 84132; 84155; 84300; 84443; 84484; 85007; 85025; 85027; 85610; 85730; 87040; 87070; 87205; 87449; 87641; 87804; 93005; 93308; 93970; 94002; 94003; 94640; 94664; 94667; 94668; 96374; 96375; 96376; J0360; J0456; J0610; J0692; J1644; J1815; J1940; J2060; J2250; J2310; J2405; J2765; J2920; J2930; J3010; J3370; J7030; J7040; J7050; J7512; J7626; P9047; P9612

== ENCOUNTER 2017-01-05 16:18 | Inpatient (IN) | payer OTHER, MEDICARE ==
[2017-01-05] VITALS (12 sets, daily range): BP systolic 90–132; BP diastolic 52–84; PULSE 52–62; RESP 14–25; TEMP 96.1–99.7; O2SAT 58–100
[~2017-01-05] VITALS: Ht 157.5 cm; Wt 60.5 kg
[~2017-01-05 16:18] MED LIST changes: +FURO20TA PO; -LEVA3NEB12 NEB; -PRED10 PO; +PRED5PAK PO
[2017-01-05] MEDS ORDERED: SODIUM CHLORIDE 0.9% FLUSH 10 ML FLUSH IVF PRN (16:45)
[2017-01-05] MEDS: RESP: ALBUTEROL 2.5 MG/IPRATROPIUM 0.5 MG NEB (SCH) INH ×2 (16:45→23:59)
[2017-01-05] MEDS ORDERED: methylPREDNISolone SOD SUCC 125 MG/2 ML VIAL IVP ONE (16:45)
--- NOTE | 2017-01-05 16:53 | RADRPT ---
EXAM DATE/TIME: 01/05/2017 16:33 [facility] COMPARISON: CHEST SINGLE AP, December 15, 2016, 8:00. INDICATIONS : Short of breath MEDICAL HISTORY : Chronic obstructive pulmonary disease. Hypercholesterolemia. Carcinoma, thyroid. DVT dyspnea SURGICAL HISTORY : Tonsillectomy. Tubal ligation. cataract surgery radiation therapy ENCOUNTER: Initial ACUITY: 1 day PAIN SCORE: 0/10 LOCATION: chest FINDINGS: A single view of the chest demonstrates small undermined bilaterally. Moderate-sized bilateral pleura l effusions. Tortuous aorta.. The cardiomediastinal contours are unremarkable. Osseous structures a re intact. CONCLUSION: Poor lung volumes. Bilateral pleural effusions. Av Ramirez MD on January 05, 2017 at 16:51 Board Certified Radiologist. This report was verified electronically.
[2017-01-05] MEDS ORDERED: ETOMIDATE 40 MG/20 ML VIAL ONE (16:59)
[2017-01-05] MEDS ORDERED: SUCCINYLCHOLINE CHLORIDE 200 MG/10 ML VIAL ONE (17:00)
[2017-01-05 17:03] LABS: BASOPHIL % 0.3 % (0.0-2.0); HEMATOCRIT 33.3 % (35.0-46.0); HEMO FLAGS DIFF FINAL; LYMPH % 14.8 % (9.0-44.0); LYMPHOCYTE # 1.7 TH/MM3 (1.0-4.8); MEAN CELL VOLUME 98.5 FL (80.0-100.0); MEAN CORPUSCULAR HEMOGLOBIN 31.1 PG (27.0-34.0); MEAN CORPUSCULAR HGB CONC 31.6 % (32.0-36.0); MONO % 6.2 % (0.0-8.0); NEUT % 78.7 % (16.0-70.0); PLATELET COUNT 232 TH/MM3 (150-450); RED BLOOD COUNT 3.38 MIL/MM3 (4.00-5.30); RED CELL DISTRIBUTION WIDTH 16.5 % (11.6-17.2); WHITE BLOOD COUNT 11.4 TH/MM3 (4.0-11.0)
--- NOTE | 2017-01-05 17:12 | PD ---
HPI Chief Complaint: Respiratory Symptoms Time Seen by Provider: 16:35 Travel History International Travel<30 days: No Contact w/Intl Traveler<30days: No Traveled to known affect area: No History of Present Illness HPI Patient is a 76-year-old female presenting for evaluation of hypoxia. Patient resides in a [facility] and was found to be drowsy and somewhat unresponsive, her O2 sat was assessed at 65%. Patient was given albuterol at the [facility] with no improvement, 911 was called and patient was brought to the emergency department. Patient has a history of acute respiratory failure and pneumonia admitted one month ago. 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 Past medical history also includes CHF, DVT currently on XARELTO. PFSH Past Medical History Hx Anticoagulant Therapy: Yes (xarelto completed on the November 07) Arthritis: Yes Anxiety: No Depression: No Heart Rhythm Problems: No Cancer: Yes Cardiovascular Problems: Yes High Cholesterol: Yes Chemotherapy: No Congestive Heart Failure: Yes COPD: Yes (O2 dep) Coronary Artery Disease: No Diabetes: No Diminished Hearing: Yes Deep Vein Thrombosis: Yes (x2 ) Fibromyalgia: Yes Gastrointestinal Disorders: No Genitourinary: Yes Headaches: Yes Hypertension: Yes Immune Disorder: No Implanted Vascular Access Dvce: No Musculoskeletal: Yes Neurologic: Yes Psychiatric: No Reproductive: No Respiratory: Yes (COPD) Radiation Therapy: Yes (thyroid) Thyroid Disease: Yes ?: Not Menopausal: Yes Tubal Ligation: Yes Past Surgical History Ear Surgery: Yes (INPLANT RT/ CATARACT) Eye Surgery: Yes (CATARACT) Gynecologic Surgery: Yes (TUBAL LIGATION) Tonsillectomy: Yes Other Surgery: Yes Social History Alcohol Use: No Tobacco Use: No (quit 2013 smoked 1 ppd cigs for 57 yrs) Substance Use: No Allergies-Medications (Allergen,Severity, Reaction): Coded Allergies: Azithromycin (Verified Allergy, Severe, STOMACH CRAMPS, 01/05/17) Penicillin (Verified Allergy, Severe, 01/05/17) Reported Meds & Prescriptions Reported Meds & Active Scripts Active Metoprolol Tartrate 25 Mg Tab 50 Mg PO Q12HR Furosemide 20 Mg Tab 20 Mg PO DAILY Oxycodone-Acetaminophen 10-325 mg Tab 1 Tab PO Q6H PRN DO NOT USE THIS MEDICINE IF YOU WILL DRIVE A CAR OR USE A MACHINE, ONLY USE IT WHEN RESTING AT HOME. Xanax (Alprazolam) 0.25 Mg Tab 0.25 Mg PO Q8H PRN Xarelto (Rivaroxaban) 20 Mg Tab 20 Mg PO DAILY Norvasc (Amlodipine Besylate) 5 Mg Tab 5 Mg PO DAILY Duoneb (Ipratropium-Albuterol Neb) 0.5-2.5 Mg/3 Ml Neb 1 Ampule NEB Q4HR NEB 30 Days Reported Milk of Magnesia Liq (Magnesium Hydroxide) 400 Mg/5 Ml Susp 30 Ml PO DAILY PRN Albuterol Neb (Albuterol Sulfate) 2.5 Mg/3 Ml Neb 2.5 Mg NEB Q2HR NEB PRN While awake Ferrous Sulfate DR (Ferrous Sulfate) 325 Mg Tabdr 325 Mg PO TIDAC Eq Mucus ER (Guaifenesin) 600 Mg Tab 600 Mg PO Q12HR Diff-Stat (Probiotic Product) 1 Cap Cap 1 Cap PO BID Miralax Powder (Polyethylene Glycol 3350 Powder) 1 Pow Pow 17 Gm PO HS Breo Ellipta Inh (Fluticasone/Vilanterol) 100-25 Mcg/Act Inh 1 Puff INH HS Use daily at the same time. Spironolactone 25 Mg Tab 12.5 Mg PO DAILY Flexeril (Cyclobenzaprine HCl) 5 Mg Tab 5 Mg PO TID Gabapentin 600 Mg Tab 600 Mg PO TID Review of Systems ROS Limitations: Altered Mental Status Except as stated in HPI: all other systems reviewed are Neg Neurologic: Positive: Change in Mentation Physical Exam Narrative GENERAL: Overweight, well-developed elderly female. Drowsy, arousable SKIN: Warm and dry. HEAD: Atraumatic. Normocephalic. EYES: Pupils equal and round. No scleral icterus. No injection or drainage. ENT: No nasal bleeding or discharge. Mucous membranes pink and moist. NECK: Trachea midline. No JVD. CARDIOVASCULAR: Regular rate and rhythm. RESPIRATORY: No accessory muscle use. Diminished throughout GASTROINTESTINAL: Abdomen soft, non-tender, nondistended. Hepatic and splenic margins not palpable. MUSCULOSKELETAL: Extremities without clubbing, cyanosis, or edema. No obvious deformities. NEUROLOGICAL: Drowsy, arousable to sternal rub. No obvious cranial nerve deficits. Motor grossly within normal limits. Five out of 5 muscle strength in the arms and legs. Data Data Last Documented VS Vital Signs Date Time Temp Pulse Resp B/P Pulse Ox O2 Delivery O2 Flow Rate FiO2 01/05/17 18:41 59 14 132/60 99 Ventilator 01/05/17 18:16 100 01/05/17 16:37 96.1 Orders Complete Blood Count With Diff (01/05/17 16:36) Comprehensive Metabolic Panel (01/05/17 16:36) B-Type Natriuretic Peptide (01/05/17 16:36) Act Partial Throm Time (Ptt) (01/05/17 16:36) Prothrombin Time / Inr (Pt) (01/05/17 16:36) Magnesium (Mg) (01/05/17 16:36) Ckmb (Isoenzyme) Profile (01/05/17 16:36) Troponin I (01/05/17 16:36) Arterial Blood Gas (Abg) (01/05/17 16:36) Urinalysis - C+S If Indicated (01/05/17 16:36) Iv Access Insert/Monitor (01/05/17 16:36) Electrocardiogram (01/05/17 16:36) Ecg Monitoring (01/05/17 16:36) Oximetry (01/05/17 16:36) Oxygen Administration (01/05/17 16:36) Chest, Single Ap (01/05/17 16:36) Urinary Catheter Insert/Apply (01/05/17 16:36) Sodium Chloride 0.9% Flush (Ns Flush) (01/05/17 16:45) Methylprednisolone So Succ Inj (Solumedr (01/05/17 16:45) Albuterol-Ipratropium Neb (Duoneb Neb) (01/05/17 16:45) Resp Bipap / Cpap Non Invas Vt (01/05/17 16:36) Lactic Acid (01/05/17 16:36) Blood Culture (01/05/17 16:42) Etomidate Inj (Amidate Inj) (01/05/17 16:59) Succinylcholine Inj (Quelicin Inj) (01/05/17 17:00) Chest, Single Ap (01/05/17 ) Propofol 1000 Mg/100 Ml Inj (Diprivan 10 (01/05/17 17:30) ^ Infusion (01/05/17 17:24) RASS (01/05/17 17:24) Neurological Rass Scale KESHAV.Q2H (01/05/17 17:24) Propofol 1000 Mg/100 Ml Inj (Diprivan 10 (01/05/17 17:25) Urine Culture (01/05/17 17:40) Etomidate Inj (Amidate Inj) (01/05/17 18:15) Succinylcholine Inj (Quelicin Inj) (01/05/17 18:15) Vancomycin Inj (Vancomycin Inj) (01/05/17 18:25) Aztreonam Inj (Azactam Inj) (01/05/17 18:30) Admit Order (Ed Use Only) (01/05/17 18:57) Labs Laboratory Tests Test 01/05/17 01/05/17 01/05/17 16:45 17:40 18:10 White Blood Count 11.4 TH/MM3 Red Blood Count 3.38 MIL/MM3 Hemoglobin 10.5 GM/DL Hematocrit 33.3 % Mean Corpuscular Volume 98.5 FL Mean Corpuscular Hemoglobin 31.1 PG Mean Corpuscular Hemoglobin 31.6 % Concent Red Cell Distribution Width 16.5 % Platelet Count 232 TH/MM3 Mean Platelet Volume 7.7 FL Neutrophils (%) (Auto) 78.7 % Lymphocytes (%) (Auto) 14.8 % Monocytes (%) (Auto) 6.2 % Eosinophils (%) (Auto) 0.0 % Basophils (%) (Auto) 0.3 % Neutrophils # (Auto) 9.0 TH/MM3 Lymphocytes # (Auto) 1.7 TH/MM3 Monocytes # (Auto) 0.7 TH/MM3 Eosinophils # (Auto) 0.0 TH/MM3 Basophils # (Auto) 0.0 TH/MM3 CBC Comment DIFF FINAL Differential Comment Prothrombin Time 11.4 SEC Prothromb Time International 1.0 RATIO Ratio Activated Partial 32.9 SEC Thromboplast Time Sodium Level 135 MEQ/L Potassium Level 4.6 MEQ/L Chloride Level 87 MEQ/L Carbon Dioxide Level GREATER THAN 45.0 MEQ/L Anion Gap 3 MEQ/L Blood Urea Nitrogen 30 MG/DL Creatinine 0.91 MG/DL Estimat Glomerular Filtration 60 ML/MIN Rate Random Glucose 100 MG/DL Lactic Acid Level 0.8 mmol/L Calcium Level 10.1 MG/DL Magnesium Level 2.3 MG/DL Total Bilirubin 0.4 MG/DL Aspartate Amino Transf 17 U/L (AST/SGOT) Alanine Aminotransferase 23 U/L (ALT/SGPT) Alkaline Phosphatase 36 U/L Total Creatine Kinase 24 U/L Troponin I 0.02 NG/ML B-Type Natriuretic Peptide 217 PG/ML Total Protein 6.6 GM/DL Albumin 2.9 GM/DL Urine Color YELLOW Urine Turbidity CLEAR Urine pH 5.0 Urine Specific [place] 1.012 Urine Protein NEG mg/dL Urine Glucose (UA) NEG mg/dL Urine Ketones NEG mg/dL Urine Occult Blood NEG Urine Nitrite NEG Urine Bilirubin NEG Urine Urobilinogen LESS THAN 2.0 MG/DL Urine Leukocyte Esterase NEG Urine RBC LESS THAN 1 /hpf Urine WBC LESS THAN 1 /hpf Urine Bacteria MANY /hpf Urine Hyaline Casts 5 /lpf Microscopic Urinalysis Comment CULTURE INDICATED Blood Gas Puncture Site RT RADIAL Blood Gas Patient Temperature 98.6 Blood Gas HCO3 44 mmol/L Blood Gas Base Excess 19.4 mmol/L Blood Gas Oxygen Saturation 94 % Arterial Blood pH 7.57 Arterial Blood Partial 47 mmHg Pressure CO2 Arterial Blood Partial 67 mmHG Pressure O2 Arterial Blood Oxygen Content 13.5 Vol % Arterial Blood 2.3 % Carboxyhemoglobin Arterial Blood Methemoglobin 0.5 % Blood Gas Hemoglobin 10.2 G/DL Oxygen Delivery Device VENTILATOR Blood Gas Ventilator Setting AC/14/550/PEEP5 Blood Gas Inspired Oxygen 100 % MDM Medical Decision Making Medical Screen Exam Complete: Yes Emergency Medical Condition: Yes Interpretation(s) Vital Signs Date Time Temp Pulse Resp B/P Pulse Ox O2 Delivery O2 Flow Rate FiO2 01/05/17 16:49 89 BiPAP 100 01/05/17 16:37 96.1 61 16 126/84 65 Differential Diagnosis COPD exacerbation versus pneumonia versus respiratory failure versus congestive heart failure versus other Narrative Course Patient is a 76-year-old female with end-stage COPD brought into the emergency department to be hypoxic at the [facility]. On arrival patient's sats were 61 %. Patient presented on nonrebreather, sats responded into the low 80s. IV access established, labs and imaging ordered and pending. Patient became more lethargic despite nonrebreather. Respiratory placed patient on BiPAP, sats improved to 90% however patient continued to be lethargic and unresponsive. Chest x-ray shows bilateral pleural effusions 1700 Patient was sedated with etomidate and succinylcholine, the glide scope was utilized and a 7.5" ET tube was inserted, positive color change, repeat x- ray shows excellent placement. BNP 217 Lactic acid 0.8 ABG is consistent with prior, shows metabolic alkalosis Patient is on 100% FiO2 White count elevated at 11.4 with left shift. Hemoglobin is stable. Chemistry reviewed, no acute findings other than the elevated carbon dioxide at greater than 45. Urinalysis is unremarkable Discussed with Dr. Dia who accepted admission to the intensive care. Orders place. Family at bedside, they were informed of events leading up to the intubation the patient's current status. Diagnosis Primary Impression: Acute respiratory failure with hypoxia and hypercapnia Admitting Information Admitting Physician Requests: Admit Condition: Critical Howard,Alisonjohn [place] Jan 05, 2017 17:12
[2017-01-05 17:17] LABS: ALT (GPT) 23 U/L (10-53); AST (GOT) 17 U/L (15-37); BLOOD UREA NITROGEN 30 MG/DL (7-18); CHLORIDE 87 MEQ/L (98-107); GLOMERULAR FILTRATION RATE 60 ML/MIN (>89); MAGNESIUM 2.3 MG/DL (1.5-2.5); POTASSIUM 4.6 MEQ/L (3.5-5.1); SODIUM (NA) 135 MEQ/L (136-145)
[2017-01-05 17:21] LABS: ALKALINE PHOSPHATASE 36 U/L (45-117); APTT (PATIENT) 32.9 SEC (24.3-30.1); PROTHROMBIN TIME - PATIENT 11.4 SEC (9.8-11.6); TOTAL BILIRUBIN ADULT 0.4 MG/DL (0.2-1.0)
[2017-01-05 17:24] LABS: ANION GAP 3 MEQ/L (5-15); BICARBONATE GREATER THAN 45.0 MEQ/L (21.0-32.0); CREATINE KINASE 24 U/L (26-192)
[2017-01-05] MEDS ORDERED: PROPOFOL 1000 MG/100 ML INJ 100 ML ONE (17:25)
[2017-01-05] MEDS ORDERED: PROPOFOL 1000 MG/100 ML INJ 100 ML IV SCH (17:30)
--- NOTE | 2017-01-05 17:35 | RADRPT ---
EXAM DATE/TIME: 01/05/2017 17:08 [facility] COMPARISON: CHEST SINGLE AP, January 05, 2017, 16:33. INDICATIONS : Evaluate intubation MEDICAL HISTORY : Chronic obstructive pulmonary disease. Hypercholesterolemia. Carcinoma, thyroid. DVT dyspnea SURGICAL HISTORY : Tonsillectomy. Tubal ligation. cataract surgery radiation therapy ENCOUNTER: Subsequent ACUITY: 1 day PAIN SCORE: Non-responsive. LOCATION: chest FINDINGS: A single view of the chest demonstrates small outlines bilaterally. Right hemidiaphragm remains eleva jamar. ET tube and NG tube are in good position. No visible pneumothorax. CONCLUSION: Endotracheal tube has been placed in excellent position. Small lung volumes persist. Av Ramirez MD on January 05, 2017 at 17:32 Board Certified Radiologist. This report was verified electronically.
[2017-01-05 17:54] LABS: BACTERIA, URINE MANY /hpf; BLOOD, URINE NEG (NEG); COMMENT (UR) CULTURE INDICATED; CULTURE IF INDICATED CULTURE INDICATED; GLUCOSE,URINE NEG (NEG); HYALINE CAST, URINE 5 /lpf (RARE); KETONE, URINE NEG (NEG); NITRITE,URINE NEG (NEG); URINE COLOR YELLOW (YELLW/STRAW)
[2017-01-05] MEDS ORDERED: ETOMIDATE 20 MG/10 ML VIAL IV PUSH ONE (18:15)
[2017-01-05] MEDS ORDERED: SUCCINYLCHOLINE CHLORIDE 200 MG/10 ML VIAL IV PUSH ONE (18:15)
[2017-01-05 18:21] LABS: BLOOD GAS BASE EXCESS 19.4 mmol/L (-2-2); BLOOD GAS CARBOXYHEMOGLOBIN 2.3 % (0-4); BLOOD GAS HCO3 44 mmol/L (22-26); BLOOD GAS METHEMOGLOBIN 0.5 % (0-2); BLOOD GAS O2 HGB SATURATION 94 % (90-100); BLOOD GAS OXYGEN CONTENT 13.5 Vol % (12.0-20.0); BLOOD GAS PCO2 47 mmHg (38-42); BLOOD GAS PO2 67 mmHG (61-120); BLOOD GAS TOTAL HGB 10.2 G/DL (12.0-16.0); CRITICAL VALUE YES; OXYGEN DEVICE VENTILATOR; TEMP CORR TO 98.6
[2017-01-05 18:22] LABS: FIO2 100 %; VENT SETTINGS AC/14/550/PEEP5
[2017-01-05 18:23] LABS: DRAW SITE RT RADIAL; NUMBER OF ARTERIAL PUNCTURES 1; STAT YES; ULNAR PULSE PRESENT
[2017-01-05] MEDS ORDERED: VANCOMYCIN INJ 1 MG in SODIUM CHLOR 0.9% 250 ML INJ 250 ML IV STA (18:25)
[2017-01-05] MEDS ORDERED: AZTREONAM INJ 1,000 MG in SODIUM CHLORIDE 0.9% INJ 100 ML IV ONE (18:30)
--- NOTE | 2017-01-05 19:04 | PD ---
Physical Exam Narrative Patient was seen and examined with my certified teacher assistant. Data Data Last Documented VS Vital Signs Date Time Temp Pulse Resp B/P Pulse Ox O2 Delivery O2 Flow Rate FiO2 01/05/17 18:41 59 14 132/60 99 Ventilator 01/05/17 18:16 100 01/05/17 16:37 96.1 Orders Complete Blood Count With Diff (01/05/17 16:36) Comprehensive Metabolic Panel (01/05/17 16:36) B-Type Natriuretic Peptide (01/05/17 16:36) Act Partial Throm Time (Ptt) (01/05/17 16:36) Prothrombin Time / Inr (Pt) (01/05/17 16:36) Magnesium (Mg) (01/05/17 16:36) Ckmb (Isoenzyme) Profile (01/05/17 16:36) Troponin I (01/05/17 16:36) Arterial Blood Gas (Abg) (01/05/17 16:36) Urinalysis - C+S If Indicated (01/05/17 16:36) Iv Access Insert/Monitor (01/05/17 16:36) Electrocardiogram (01/05/17 16:36) Ecg Monitoring (01/05/17 16:36) Oximetry (01/05/17 16:36) Oxygen Administration (01/05/17 16:36) Chest, Single Ap (01/05/17 16:36) Urinary Catheter Insert/Apply (01/05/17 16:36) Sodium Chloride 0.9% Flush (Ns Flush) (01/05/17 16:45) Methylprednisolone So Succ Inj (Solumedr (01/05/17 16:45) Albuterol-Ipratropium Neb (Duoneb Neb) (01/05/17 16:45) Resp Bipap / Cpap Non Invas Vt (01/05/17 16:36) Lactic Acid (01/05/17 16:36) Blood Culture (01/05/17 16:42) Etomidate Inj (Amidate Inj) (01/05/17 16:59) Succinylcholine Inj (Quelicin Inj) (01/05/17 17:00) Chest, Single Ap (01/05/17 ) Propofol 1000 Mg/100 Ml Inj (Diprivan 10 (01/05/17 17:30) ^ Infusion (01/05/17 17:24) RASS (01/05/17 17:24) Neurological Rass Scale KESHAV.Q2H (01/05/17 17:24) Propofol 1000 Mg/100 Ml Inj (Diprivan 10 (01/05/17 17:25) Urine Culture (01/05/17 17:40) Etomidate Inj (Amidate Inj) (01/05/17 18:15) Succinylcholine Inj (Quelicin Inj) (01/05/17 18:15) Vancomycin Inj (Vancomycin Inj) (01/05/17 18:25) Aztreonam Inj (Azactam Inj) (01/05/17 18:30) Admit Order (Ed Use Only) (01/05/17 18:57) Labs Laboratory Tests Test 01/05/17 01/05/17 01/05/17 16:45 17:40 18:10 White Blood Count 11.4 TH/MM3 Red Blood Count 3.38 MIL/MM3 Hemoglobin 10.5 GM/DL Hematocrit 33.3 % Mean Corpuscular Volume 98.5 FL Mean Corpuscular Hemoglobin 31.1 PG Mean Corpuscular Hemoglobin 31.6 % Concent Red Cell Distribution Width 16.5 % Platelet Count 232 TH/MM3 Mean Platelet Volume 7.7 FL Neutrophils (%) (Auto) 78.7 % Lymphocytes (%) (Auto) 14.8 % Monocytes (%) (Auto) 6.2 % Eosinophils (%) (Auto) 0.0 % Basophils (%) (Auto) 0.3 % Neutrophils # (Auto) 9.0 TH/MM3 Lymphocytes # (Auto) 1.7 TH/MM3 Monocytes # (Auto) 0.7 TH/MM3 Eosinophils # (Auto) 0.0 TH/MM3 Basophils # (Auto) 0.0 TH/MM3 CBC Comment DIFF FINAL Differential Comment Prothrombin Time 11.4 SEC Prothromb Time International 1.0 RATIO Ratio Activated Partial 32.9 SEC Thromboplast Time Sodium Level 135 MEQ/L Potassium Level 4.6 MEQ/L Chloride Level 87 MEQ/L Carbon Dioxide Level GREATER THAN 45.0 MEQ/L Anion Gap 3 MEQ/L Blood Urea Nitrogen 30 MG/DL Creatinine 0.91 MG/DL Estimat Glomerular Filtration 60 ML/MIN Rate Random Glucose 100 MG/DL Lactic Acid Level 0.8 mmol/L Calcium Level 10.1 MG/DL Magnesium Level 2.3 MG/DL Total Bilirubin 0.4 MG/DL Aspartate Amino Transf 17 U/L (AST/SGOT) Alanine Aminotransferase 23 U/L (ALT/SGPT) Alkaline Phosphatase 36 U/L Total Creatine Kinase 24 U/L Troponin I 0.02 NG/ML B-Type Natriuretic Peptide 217 PG/ML Total Protein 6.6 GM/DL Albumin 2.9 GM/DL Urine Color YELLOW Urine Turbidity CLEAR Urine pH 5.0 Urine Specific [place] 1.012 Urine Protein NEG mg/dL Urine Glucose (UA) NEG mg/dL Urine Ketones NEG mg/dL Urine Occult Blood NEG Urine Nitrite NEG Urine Bilirubin NEG Urine Urobilinogen LESS THAN 2.0 MG/DL Urine Leukocyte Esterase NEG Urine RBC LESS THAN 1 /hpf Urine WBC LESS THAN 1 /hpf Urine Bacteria MANY /hpf Urine Hyaline Casts 5 /lpf Microscopic Urinalysis Comment CULTURE INDICATED Blood Gas Puncture Site RT RADIAL Blood Gas Patient Temperature 98.6 Blood Gas HCO3 44 mmol/L Blood Gas Base Excess 19.4 mmol/L Blood Gas Oxygen Saturation 94 % Arterial Blood pH 7.57 Arterial Blood Partial 47 mmHg Pressure CO2 Arterial Blood Partial 67 mmHG Pressure O2 Arterial Blood Oxygen Content 13.5 Vol % Arterial Blood 2.3 % Carboxyhemoglobin Arterial Blood Methemoglobin 0.5 % Blood Gas Hemoglobin 10.2 G/DL Oxygen Delivery Device VENTILATOR Blood Gas Ventilator Setting AC/14/550/PEEP5 Blood Gas Inspired Oxygen 100 % MDM Supervised Visit with FITO: Yes Jonathan Arellano MD Jan 05, 2017 19:04
[2017-01-05] MEDS ORDERED: SENNOSIDES 8.6 MG TAB PO PRN (22:00)
[2017-01-05] MEDS ORDERED: MAGNESIUM HYDROXIDE SUSP 30 ML CUP PO PRN (22:00)
[2017-01-05] MEDS ORDERED: CHLORHEXIDINE GLUCONATE 2 % 1 PACK (2 CLOTHS) TOP PRN (22:00)
[2017-01-05] MEDS ORDERED: ONDANSETRON HCL 4 MG/2 ML VIAL IV PRN (22:00)
[2017-01-05] MEDS ORDERED: RESP: ALBUTEROL 2.5 MG/IPRATROPIUM 0.5 MG NEB (PRN) INH (22:00)
[2017-01-05] MEDS ORDERED: BISACODYL 10 MG SUPP RECTAL PRN (22:00)
[2017-01-05] MEDS ORDERED: MIDAZOLAM HCL 2 MG/2 ML VIAL IV PRN (22:00)
[2017-01-05] MEDS ORDERED: SODIUM CHLORIDE 0.9% FLUSH 10 ML FLUSH PRN (22:00)
[2017-01-05] MEDS ORDERED: LACTULOSE SYRUP 20 GM/30 ML CUP PO PRN (22:00)
[2017-01-05] MEDS ORDERED: MISCELLANEOUS NURSING INFORMATION XX SCH (22:00)
--- NOTE | 2017-01-05 23:06 | HHI.HP ---
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 Patient resides in a [facility] and was found to be drowsy and somewhat unresponsive, her O2 sat was assessed at 65%. Patient was given albuterol at the [facility] with no improvement, 911 was called and patient was brought to the emergency department. The last admission for acute respiratory failure and pneumonia was one month ago. Her other medical problems include congestive heart failure and DVT currently on Xarelto. Review of Systems ROS Unable to obtain patient is sedated and intubated Past Family Social History Allergies: Coded Allergies: Azithromycin (Verified Allergy, Severe, STOMACH CRAMPS, 01/05/17) Penicillin (Verified Allergy, Severe, 01/05/17) Past Medical History Arthritis Chronic anticoagulation with Xarelto High Cholesterol: Congestive Heart Failure COPD on home O2 Deep Vein Thrombosis x2 Fibromyalgia Headaches Hypertension Thyroid Disease Past Surgical History Cataracts Tubal ligation Tonsillectomy Reported Medications Reported Meds & Active Scripts Active Metoprolol Tartrate 25 Mg Tab 50 Mg PO Q12HR Furosemide 20 Mg Tab 20 Mg PO DAILY Oxycodone-Acetaminophen 10-325 mg Tab 1 Tab PO Q6H PRN DO NOT USE THIS MEDICINE IF YOU WILL DRIVE A CAR OR USE A MACHINE, ONLY USE IT WHEN RESTING AT HOME. Xanax (Alprazolam) 0.25 Mg Tab 0.25 Mg PO Q8H PRN Xarelto (Rivaroxaban) 20 Mg Tab 20 Mg PO DAILY Norvasc (Amlodipine Besylate) 5 Mg Tab 5 Mg PO DAILY Duoneb (Ipratropium-Albuterol Neb) 0.5-2.5 Mg/3 Ml Neb 1 Ampule NEB Q4HR NEB 30 Days Reported Milk of Magnesia Liq (Magnesium Hydroxide) 400 Mg/5 Ml Susp 30 Ml PO DAILY PRN Albuterol Neb (Albuterol Sulfate) 2.5 Mg/3 Ml Neb 2.5 Mg NEB Q2HR NEB PRN While awake Ferrous Sulfate DR (Ferrous Sulfate) 325 Mg Tabdr 325 Mg PO TIDAC Eq Mucus ER (Guaifenesin) 600 Mg Tab 600 Mg PO Q12HR Diff-Stat (Probiotic Product) 1 Cap Cap 1 Cap PO BID Miralax Powder (Polyethylene Glycol 3350 Powder) 1 Pow Pow 17 Gm PO HS Breo Ellipta Inh (Fluticasone/Vilanterol) 100-25 Mcg/Act Inh 1 Puff INH HS Use daily at the same time. Spironolactone 25 Mg Tab 12.5 Mg PO DAILY Flexeril (Cyclobenzaprine HCl) 5 Mg Tab 5 Mg PO TID Gabapentin 600 Mg Tab 600 Mg PO TID Active Ordered Medications Current Medications Medications (Trade) Dose Ordered Sig/Lili Route PRN Reason Start Time Stop Time Status Last Admin Dose Admin Sodium Chloride (NS 1000 ml Inj) 1,000 ml @ 84 mls/hr [id number] IV 01/05/17 21:56 01/05/17 23:13 Sodium Chloride (NS Flush) 2 ml UNSCH PRN .XX FLUSH AFTER USING IV ACCESS 01/05/17 22:00 Sodium Chloride (NS Flush) 2 ml BID .XX 01/06/17 09:00 Acetaminophen (Tylenol) 650 mg Q6H PRN PO PAIN 1-10 AND/OR FEVER >101F 01/05/17 22:00 Famotidine (Pepcid Inj) 20 mg Q12HR IV PUSH 01/06/17 09:00 Midazolam HCl (Versed Inj) 2 mg Q1H PRN IV SEDATION 01/05/17 22:00 Artificial Tears (Tears Naturale Opth Soln) 1 drop TID EACH EYE 01/06/17 09:00 Ondansetron HCl (Zofran Inj) 4 mg Q6H PRN IV NAUSEA OR VOMITING 01/05/17 22:00 Miscellaneous Information 1 Q361D XX 01/05/17 22:00 01/05/17 22:00 Chlorhexidine Gluconate (Chlorhexidine 2% Cloth) 3 pack Taper DAILY@04 TOP 01/06/17 04:00 01/02/18 03:59 Chlorhexidine Gluconate (Chlorhexidine 2% Cloth) 3 pack UNSCH PRN TOP HYGIENIC CARE 01/05/17 22:00 Senna/Docusate Sodium (Lynn-Colace) 1 tab BID PO 01/06/17 09:00 Magnesium Hydroxide (Milk Of Magnesia Liq) 30 ml Q12H PRN PO MILD - MODERATE CONSTIPATION 01/05/17 22:00 Sennosides (Senokot) 17.2 mg Q12H PRN PO MODERATE - SEVERE CONSTIPATION 01/05/17 22:00 Bisacodyl (Dulcolax Supp) 10 mg DAILY PRN RECTAL SEVERE CONSITIPATION 01/05/17 22:00 Lactulose 30 ml 30 ml DAILY PRN PO SEVERE CONSITIPATION 01/05/17 22:00 Propofol (Diprivan 1000 Mg/100ml Inj) 100 ml @ 0 mls/hr TITRATE IV 01/05/17 22:00 01/05/17 23:42 Alprazolam (Xanax) 0.25 mg Q8H PRN PO ANXIETY 01/05/17 22:15 Amlodipine Besylate (Norvasc) 5 mg DAILY PO 01/06/17 09:00 Cyclobenzaprine HCl (Flexeril) 5 mg TID PO 01/06/17 09:00 Fluticasone/ Vilanterol (Breo Ellipta 100-25 Inh) 1 puff HS INH 01/06/17 21:00 Furosemide (Lasix) 20 mg DAILY PO 01/06/17 09:00 Gabapentin (Neurontin) 600 mg TID PO 01/06/17 09:00 Guaifenesin (Mucinex Er) 600 mg Q12HR PO 01/06/17 09:00 Metoprolol Tartrate (Lopressor) 50 mg Q12HR PO 01/06/17 09:00 Rivaroxaban (Xarelto) 20 mg DAILY PO 01/06/17 09:00 Spironolactone (Aldactone) 12.5 mg DAILY PO 01/06/17 09:00 Ferrous Sulfate (Ferrous Sulfate) 325 mg TIDAC PO 01/06/17 08:00 Lactobacillus Acidophilus (Lactinex) 1 tab BID PO 01/06/17 09:00 Family History No family history of early coronary artery disease or cancer Social History Alcohol Use: No Tobacco Use: No (quit 2014 smoked 1 ppd cigs for 57 yrs) Substance Use: No Physical Exam Vital Signs Vital Signs Date Time Temp Pulse Resp B/P Pulse Ox O2 Delivery O2 Flow Rate FiO2 01/05/17 20:45 99.7 62 25 123/82 88 01/05/17 20:25 100 100 7/17/17 19:59 99 100 01/05/17 19:30 55 14 124/59 99 Auto-Vent 100 01/05/17 19:09 59 14 90/53 98 Auto-Vent 100 01/05/17 18:41 59 14 132/60 99 Ventilator 01/05/17 18:16 100 01/05/17 17:10 97 100 01/05/17 16:49 52 19 126/84 90 BiPAP 01/05/17 16:49 89 BiPAP 100 01/05/17 16:40 93 100 01/05/17 16:37 96.1 61 16 126/84 65 Physical Exam GENERAL: Elderly woman sedated and intubated SKIN: Warm and dry. HEAD: Normocephalic. EYES: No scleral icterus. No injection or drainage. NECK: Supple, trachea midline. No JVD or lymphadenopathy. CARDIOVASCULAR: Regular rate and rhythm without murmurs, gallops, or rubs. RESPIRATORY: Breath sounds equal bilaterally. No accessory muscle use. GASTROINTESTINAL: Abdomen soft, non-tender, nondistended. MUSCULOSKELETAL: No cyanosis, or edema. BACK: Nontender without obvious deformity. No CVA tenderness. EXTREMITIES: No clubbing cyanosis or edema Laboratory Laboratory Tests Test 01/05/17 01/05/17 01/05/17 16:45 17:40 18:10 White Blood Count 11.4 Red Blood Count 3.38 Hemoglobin 10.5 Hematocrit 33.3 Mean Corpuscular Volume 98.5 Mean Corpuscular Hemoglobin 31.1 Mean Corpuscular Hemoglobin 31.6 Concent Red Cell Distribution Width 16.5 Platelet Count 232 Mean Platelet Volume 7.7 Neutrophils (%) (Auto) 78.7 Lymphocytes (%) (Auto) 14.8 Monocytes (%) (Auto) 6.2 Eosinophils (%) (Auto) 0.0 Basophils (%) (Auto) 0.3 Neutrophils # (Auto) 9.0 Lymphocytes # (Auto) 1.7 Monocytes # (Auto) 0.7 Eosinophils # (Auto) 0.0 Basophils # (Auto) 0.0 CBC Comment DIFF FINAL Differential Comment Prothrombin Time 11.4 Prothromb Time International 1.0 Ratio Activated Partial 32.9 Thromboplast Time Sodium Level 135 Potassium Level 4.6 Chloride Level 87 Carbon Dioxide Level GREATER THAN 45.0 Anion Gap 3 Blood Urea Nitrogen 30 Creatinine 0.91 Estimat Glomerular Filtration 60 Rate Random Glucose 100 Lactic Acid Level 0.8 Calcium Level 10.1 Magnesium Level 2.3 Total Bilirubin 0.4 Aspartate Amino Transf 17 (AST/SGOT) Alanine Aminotransferase 23 (ALT/SGPT) Alkaline Phosphatase 36 Total Creatine Kinase 24 Troponin I 0.02 B-Type Natriuretic Peptide 217 Total Protein 6.6 Albumin 2.9 Urine Color YELLOW Urine Turbidity CLEAR Urine pH 5.0 Urine Specific [place] 1.012 Urine Protein NEG Urine Glucose (UA) NEG Urine Ketones NEG Urine Occult Blood NEG Urine Nitrite NEG Urine Bilirubin NEG Urine Urobilinogen LESS THAN 2.0 Urine Leukocyte Esterase NEG Urine RBC LESS THAN 1 Urine WBC LESS THAN 1 Urine Bacteria MANY Urine Hyaline Casts 5 Microscopic Urinalysis Comment CULTURE INDICATED Blood Gas Puncture Site RT RADIAL Blood Gas Patient Temperature 98.6 Blood Gas HCO3 44 Blood Gas Base Excess 19.4 Blood Gas Oxygen Saturation 94 Arterial Blood pH 7.57 Arterial Blood Partial 47 Pressure CO2 Arterial Blood Partial 67 Pressure O2 Arterial Blood Oxygen Content 13.5 Arterial Blood 2.3 Carboxyhemoglobin Arterial Blood Methemoglobin 0.5 Blood Gas Hemoglobin 10.2 Oxygen Delivery Device VENTILATOR Blood Gas Ventilator Setting AC/14/550/PEEP5 Blood Gas Inspired Oxygen 100 Date/Time Procedure Status Source Growth 01/05/17 18:45 Aerobic Blood Culture Received Blood Peripheral Pending 01/05/17 18:45 Anaerobic Blood Culture Received Blood Peripheral Pending 01/05/17 17:40 Urine Culture Received Urine Random Urine Pending Result Diagram: 01/05/17 1645 01/05/17 1645 Imaging Last 24 hours Impressions Chest X-Ray 01/05/17 1636 Signed Impressions: Service Date/Time: Thursday, January 05, 2017 16:33 - CONCLUSION: Poor lung volumes. Bilateral pleural effusions. Av Ramirez MD Assessment and Plan Assessment and Plan Respiratory failure - COPD exacerbation - Empiric antibiotics - IV steroids - DuoNeb scheduled and when necessary - Mechanical ventilation Hypertension - Norvasc - Metoprolol Congestive heart failure - Metoprolol - Lasix - Spironolactone History of DVTs - Xarelto Peripheral neuropathy - Gabapentin DVT GI prophylaxis - Teds SCDs - Xarelto tube feeds and pantoprazole Critical Care: The total critical care time was 35 minutes. Time to perform other separately billable procedures was not included in the critical care time. Austin Dia MD Jan 05, 2017 23:06
[2017-01-05] MEDS: SODIUM CHLOR 0.9% 1000 ML INJ 1,000 ML IV SCH (23:13)
[2017-01-05] MEDS: PROPOFOL 1000 MG/100 ML INJ 100 ML IV SCH (23:42)
[2017-01-06] VITALS (42 sets, daily range): BP systolic 93–147; BP diastolic 51–78; PULSE 52–74; RESP 13–32; TEMP 98–99.4; O2SAT 92–100
[2017-01-06 01:01] LABS: BLOOD GAS BASE EXCESS 15.9 mmol/L (-2-2); BLOOD GAS CARBOXYHEMOGLOBIN 2.1 % (0-4); BLOOD GAS HCO3 40 mmol/L (22-26); BLOOD GAS METHEMOGLOBIN 1.3 % (0-2); BLOOD GAS O2 HGB SATURATION 88 % (90-100); BLOOD GAS PCO2 42 mmHg (38-42); BLOOD GAS PO2 51 mmHg (61-120); BLOOD GAS TOTAL HGB 9.6 G/DL (12.0-16.0); CRITICAL VALUE YES; OXYGEN DEVICE VENTILATOR; TEMP CORR TO 98.6; VENT SETTINGS AC550/14/+5
[2017-01-06 01:02] LABS: DRAW SITE LT RADIAL; FIO2 60 %; NUMBER OF ARTERIAL PUNCTURES 1; STAT NO
[2017-01-06] MEDS: PANTOPRAZOLE SODIUM 40 MG VIAL IV PUSH SCH (01:23)
[2017-01-06] MEDS: methylPREDNISolone SOD SUCC 40 MG/1 ML VIAL IV PUSH SCH ×3 (01:23→17:12)
[2017-01-06] MEDS: DOXYCYCLINE INJ 100 MG in SODIUM CHLORIDE 0.9% INJ 100 ML IV SCH ×2 (01:24→13:38)
[2017-01-06] MEDS: AZTREONAM INJ 1,000 MG in SODIUM CHLORIDE 0.9% INJ 100 ML IV SCH ×3 (04:00→20:51)
[2017-01-06] MEDS: CHLORHEXIDINE GLUCONATE 2 % 1 PACK (2 CLOTHS) TOP SCH (04:00)
[2017-01-06] MEDS: RESP: ALBUTEROL 2.5 MG/IPRATROPIUM 0.5 MG NEB (SCH) INH ×6 (04:07→23:43)
--- NOTE | 2017-01-06 06:31 | RADRPT ---
EXAM DATE/TIME: 01/06/2017 05:15 [facility] COMPARISON: CHEST SINGLE AP, January 05, 2017, 17:08. INDICATIONS : Respiratrory distress. MEDICAL HISTORY : Carcinoma, thyroid. Chronic obstructive pulmonary disease. Hypercholesterolemia. SURGICAL HISTORY : Tonsillectomy. Tubal ligation. ENCOUNTER: Subsequent ACUITY: 2 days PAIN SCORE: Non-responsive. LOCATION: Bilateral chest FINDINGS: The support devices remain in place. There is mild improved aeration of the lung mcgill compared to t he prior study. There continues to be some infiltrates in both lung bases suggestive of atelectasis. No evidence of pneumothorax. The heart size is stable. CONCLUSION: Mild improved aeration of the lung mcgill compared to the prior study. Bibasilar atelectasis. Alber Prasad MD on January 06, 2017 at 6:29 Board Certified Radiologist. This report was verified electronically.
[2017-01-06] MEDS: guaiFENesin E.R. 600 MG TAB PO SCH ×2 (08:21→21:00)
[2017-01-06] MEDS: PROPOFOL 1000 MG/100 ML INJ 100 ML IV SCH ×2 (08:21→13:38)
[2017-01-06] MEDS: DOCUSATE SODIUM 50 MG/SENNA 8.6 MG TAB PO SCH ×2 (08:21→20:52)
[2017-01-06] MEDS: LACTOBACILLUS ACIDOPHILUS TAB PO SCH ×2 (08:21→20:52)
[2017-01-06] MEDS: CYCLOBENZAPRINE HCL 10 MG TAB PO SCH ×3 (08:21→17:11)
[2017-01-06] MEDS: FUROSEMIDE 20 MG TAB PO SCH (08:22)
[2017-01-06] MEDS: SODIUM CHLORIDE 0.9% FLUSH 10 ML FLUSH SCH ×2 (08:22→20:52)
[2017-01-06] MEDS: ARTIFICIAL TEARS OPTH SOLN 15 ML BTL EACH EYE SCH ×3 (08:22→17:11)
[2017-01-06] MEDS: SPIRONOLACTONE 25 MG TAB PO SCH (08:22)
[2017-01-06] MEDS: amLODIPine BESYLATE 5 MG TAB PO SCH (08:23)
[2017-01-06] MEDS: METOPROLOL TARTRATE 50 MG TAB PO SCH ×2 (08:23→20:52)
[2017-01-06] MEDS: GABAPENTIN 300 MG CAP PO SCH ×3 (08:23→17:11)
[2017-01-06] MEDS ORDERED: FAMOTIDINE 20 MG/2 ML VIAL IV PUSH SCH (09:00)
[2017-01-06] MEDS: FERROUS SULFATE 325 MG (65 MG ELEMENTAL IRON) TAB PO SCH ×3 (09:02→17:11)
[2017-01-06] MEDS: SODIUM CHLOR 0.9% 1000 ML INJ 1,000 ML IV SCH ×2 (09:03→21:27)
[2017-01-06] MEDS: RIVAROXABAN 20 MG TAB PO SCH (11:41)
--- NOTE | 2017-01-06 12:34 | HHI.CCPN ---
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 Patient resides in a assisted and was found to be drowsy and somewhat unresponsive, her O2 sat was assessed at 65%. Patient was given albuterol at the assisted with no improvement, 911 was called and patient was brought to the emergency department. The last admission for acute respiratory failure and pneumonia was one month ago. Her other medical problems include congestive heart failure and DVT currently on Xarelto. SUBJ: Remains intubated sedated, wakes up easily. Fio2 requirement remains high at 75%, CXR showing interval improvement Objective Vital Signs Date Time Temp Pulse Resp B/P Pulse Ox O2 Delivery O2 Flow Rate FiO2 01/06/17 10:48 96 75 01/06/17 07:00 74 01/06/17 07:00 98.9 32 127/67 01/05/17 19:30 Auto-Vent Intake and Output 01/05/17 01/05/17 01/06/17 08:00 16:00 00:00 Intake Total 260 ml Output Total 300 ml Balance -40 ml Result Diagram: 01/05/17 1645 01/05/17 1645 Other Results Laboratory Tests Test 01/05/17 01/06/17 18:10 00:00 Blood Gas Puncture Site RT RADIAL LT RADIAL Blood Gas Patient Temperature 98.6 98.6 Blood Gas HCO3 44 mmol/L 40 mmol/L (22-26) (22-26) Blood Gas Base Excess 19.4 mmol/L 15.9 mmol/L (-2-2) (-2-2) Blood Gas Oxygen Saturation 94 % (90-100) 88 % (90-100) Arterial Blood pH 7.57 7.58 (7.380-7.420) (7.380-7.420) Arterial Blood Partial 47 mmHg (38-42) 42 mmHg (38-42) Pressure CO2 Arterial Blood Partial 67 mmHG 51 mmHg Pressure O2 (61-120) (61-120) Arterial Blood Oxygen Content 13.5 Vol % 12.0 Vol % (12.0-20.0) (12.0-20.0) Arterial Blood 2.3 % (0-4) 2.1 % (0-4) Carboxyhemoglobin Arterial Blood Methemoglobin 0.5 % (0-2) 1.3 % (0-2) Blood Gas Hemoglobin 10.2 G/DL 9.6 G/DL (12.0-16.0) (12.0-16.0) Oxygen Delivery Device VENTILATOR VENTILATOR Blood Gas Ventilator Setting AC/14/550/PEEP5 AC550/14/+5 Blood Gas Inspired Oxygen 100 % 60 % Imaging Last 24 hours Impressions Chest X-Ray 01/05/17 1636 Signed Impressions: Service Date/Time: Thursday, January 05, 2017 16:33 - CONCLUSION: Poor lung volumes. Bilateral pleural effusions. Av Ramirez MD Objective Remarks GENERAL/NEURO: Elderly woman sedated and intubated. Wakes up easily follows commands when sedation lightened SKIN: Warm and dry. HEAD: Normocephalic. EYES: No scleral icterus. No injection or drainage. NECK: Supple, trachea midline. No JVD or lymphadenopathy. CARDIOVASCULAR: Regular rate and rhythm without murmurs, gallops, or rubs. RESPIRATORY: Breath sounds equal bilaterally, but diminished. No wheezes heard at this time GASTROINTESTINAL: Abdomen soft, non-tender, nondistended. MUSCULOSKELETAL: No cyanosis, or edema. BACK: Nontender without obvious deformity. No CVA tenderness. EXTREMITIES: No clubbing cyanosis or edema A/P Assessment and Plan Respiratory failure - COPD exacerbation - Empiric antibiotics - IV steroids, DuoNeb scheduled and when necessary - Mechanical ventilation, ACV mode. Start CPAP trials once FiO2 <50% Hypertension - Norvasc - Metoprolol Congestive heart failure - Metoprolol - Lasix - Spironolactone History of DVTs - Xarelto Peripheral neuropathy - Gabapentin DVT GI prophylaxis - Teds SCDs - Xarelto tube feeds and pantoprazole Critical Care: The total critical care time was 35 minutes. Time to perform other separately billable procedures was not included in the critical care time. Nora Hutchinson MD Jan 06, 2017 12:34
--- NOTE | 2017-01-06 18:59 | EKG ---
Date Performed: 01/05/2017 Time Performed: 16:59:18 PTAGE: 76 years EKG: SINUS BRADYCARDIA MARKED LEFT AXIS DEVIATION RIGHT BUNDLE BRANCH BLOCK MODERATE T-WAVE ABNO RMALITY, CONSIDER LATERAL ISCHEMIA ABNORMAL ECG PREVIOUS TRACING : 12/01/2016 20.00 Compared to the previous tracing, T wave changes are more p rominent DOCTOR: Justin Chau Interpretating Date/Time 01/06/2017 18:58:39
--- NOTE | 2017-01-06 20:11 | MB ---
cc: WAYNE JONES DATE OF CONSULTATION 01/06/[address] Nora Hutchinson. REASON FOR CONSULTATION Pulmonary management. HISTORY OF THE PRESENT ILLNESS Ms. Diaz is a pleasant 76-year-old female who is known to me from the office. She has a longstanding history of COPD. Now she is end stage. She was recently discharged from this hospital and [facility]. The [facility] was brought from the [facility] with worsening of shortness of breath and hypoxia. The patient was evaluated in the hospital. She was hypoxic and hypercarbic. She was intubated. Currently she is intubated and sedated, not requiring any pressors. She is tolerating tube feeding. LABORATORY DATA Her blood gas showed pH 7.58, pCO2 42, pO2 51, bicarb 40. She is on FIO2 of 50%. Her WBC 11.4, hemoglobin 10.5, hematocrit 33.3, MCV 98, platelet count 232. Sodium 135, potassium 4.6, chloride 87, CO2 more than 50. BUN 30, creatinine 0.91. PAST MEDICAL HISTORY Significant for: 1. History of longstanding COPD. She is in end-stage. She has had multiple admissions and intubations in the past. 2. History of DVT. 3. Hypertension. 4. History of fibromyalgia. MEDICATIONS She is currently takin. Breo Ellipta once a day. 2. Amlodipine 5 mg a day. 3. Flexeril 5 mg three times a day. 4. Lasix 20 mg daily. 5. Neurontin 600 milligrams three times a day. 6. Guaifenesin 60 milligrams q.12h. 7. Metoprolol 50 milligrams q.12h. 8. Xarelto 20 milligrams daily. 9. Aldactone 12.5 milligrams daily. 10. Lactinex one tablet three times a day. 11. Solu-Medrol 40 milligrams q.8h. 12. Protonix 40 milligrams daily. 13. Albuterol Atrovent nebulizer treatment. 14. Xanax as needed. ALLERGIES SHE IS ALLERGIC TO ZITHROMAX AND PENICILLIN. SOCIAL HISTORY She has history of smoking in the past. FAMILY HISTORY Noncontributory. REVIEW OF SYSTEMS Cannot assess. PHYSICAL EXAMINATION GENERAL: Elderly female. She is intubated and sedated. VITAL SIGNS: Blood pressure is 124/60, heart rate 53, respirations 16, temperature 98.7. HEENT: Pupils are equal and reactive to light. Oral mucosa, nasal mucosa normal. NECK: Supple. JVP not raised. CHEST: Air entry equal bilaterally. No rhonchi. CARDIOVASCULAR: S1, S2 are normal. ABDOMEN: Soft, nontender, nondistended. Bowel sounds are present. EXTREMITIES: No edema. IMPRESSION 1. Ventolin dependent respiratory failure. 2. End-stage COPD. 3. DVTs. 4. Basal infiltrate. 5. Hypoxia. PLAN The patient will maintain on ventilator. Continue IV Solu-Medrol. Continue antibiotic. She is on Protonix for GI prophylaxis and she is taking Xarelto. Monitor her electrolytes and CBC. Further treatment will depend on the course in the hospital. Thank you Dr. Hutchinson for this consultation. MD LEENA Uribe/BILLIE /7:10 PM /7:43 PM MTDErnst
[2017-01-07] VITALS (20 sets, daily range): BP systolic 103–145; BP diastolic 56–86; PULSE 53–82; RESP 14–30; TEMP 98.2–99; O2SAT 90–99
[2017-01-07] MEDS: DOXYCYCLINE INJ 100 MG in SODIUM CHLORIDE 0.9% INJ 100 ML IV SCH ×2 (01:58→13:00)
[2017-01-07] MEDS: methylPREDNISolone SOD SUCC 40 MG/1 ML VIAL IV PUSH SCH ×3 (01:58→18:07)
[2017-01-07] MEDS: PANTOPRAZOLE SODIUM 40 MG VIAL IV PUSH SCH (01:58)
[2017-01-07] MEDS: RESP: ALBUTEROL 2.5 MG/IPRATROPIUM 0.5 MG NEB (SCH) INH ×5 (03:53→20:32)
[2017-01-07] MEDS: CHLORHEXIDINE GLUCONATE 2 % 1 PACK (2 CLOTHS) TOP SCH (04:00)
[2017-01-07] MEDS: AZTREONAM INJ 1,000 MG in SODIUM CHLORIDE 0.9% INJ 100 ML IV SCH ×3 (04:17→19:51)
[2017-01-07] MEDS: PROPOFOL 1000 MG/100 ML INJ 100 ML IV SCH (04:21)
--- NOTE | 2017-01-07 06:41 | HHI.CCPN ---
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 Patient resides in a residential and was found to be drowsy and somewhat unresponsive, her O2 sat was assessed at 65%. Patient was given albuterol at the residential with no improvement, 911 was called and patient was brought to the emergency department. The last admission for acute respiratory failure and pneumonia was one month ago. Her other medical problems include congestive heart failure and DVT currently on Xarelto. SUBJ: 01/06: Remains intubated sedated, wakes up easily. Fio2 requirement remains high at 75%, CXR showing interval improvement 01/07: Wakes up easily on propranolol follows commands. FiO2 down to 50%. We will attempt CPAP trial Objective Vital Signs Date Time Temp Pulse Resp B/P Pulse Ox O2 Delivery O2 Flow Rate FiO2 01/07/17 04:11 96 50 01/07/17 04:00 98.3 57 14 103/56 01/05/17 19:30 Auto-Vent Intake and Output 01/06/17 01/06/17 01/07/17 08:00 16:00 00:00 Intake Total 880 ml 856 ml 1244 ml Output Total 230 ml 775 ml 650 ml Balance 650 ml 81 ml 594 ml Result Diagram: 01/05/17 1645 01/05/17 1645 Imaging Last 24 hours Impressions Chest X-Ray 01/05/17 1636 Signed Impressions: Service Date/Time: Thursday, January 05, 2017 16:33 - CONCLUSION: Poor lung volumes. Bilateral pleural effusions. Av Ramirez MD Objective Remarks GENERAL/NEURO: Elderly woman sedated and intubated. Wakes up easily follows commands when sedation lightened SKIN: Warm and dry. HEAD: Normocephalic. EYES: No scleral icterus. No injection or drainage. NECK: Supple, trachea midline. No JVD or lymphadenopathy. CARDIOVASCULAR: Regular rate and rhythm without murmurs, gallops, or rubs. RESPIRATORY: Breath sounds equal bilaterally, but diminished. No wheezes heard at this time GASTROINTESTINAL: Abdomen soft, non-tender, nondistended. MUSCULOSKELETAL: No cyanosis, or edema. BACK: Nontender without obvious deformity. No CVA tenderness. EXTREMITIES: No clubbing cyanosis or edema Urinary Catheter: Yes Assessment to: Continue A/P Assessment and Plan Respiratory failure Acute COPD exacerbation - Empiric antibiotics - IV steroids, DuoNeb scheduled and when necessary - Mechanical ventilation, ACV mode. - Start CPAP trials for possible extubation Hypertension - Norvasc - Metoprolol Congestive heart failure - Metoprolol - Lasix, give additional 40 mg Lasix IV 1 today - Spironolactone History of DVTs - Xarelto Peripheral neuropathy - Gabapentin DVT GI prophylaxis - Teds SCDs - Xarelto tube feeds and pantoprazole Critical Care: Level 3 Nora Hutchinson MD Jan 07, 2017 06:41
[2017-01-07] MEDS ORDERED: FUROSEMIDE 40 MG/4 ML VIAL IV PUSH ONE (06:45)
[2017-01-07] MEDS ORDERED: POTASSIUM CHLORIDE 25 MEQ EFFERVESCENT TAB PO ONE (06:45)
[2017-01-07] MEDS: METOPROLOL TARTRATE 50 MG TAB PO SCH ×2 (07:24→19:51)
[2017-01-07] MEDS: LACTOBACILLUS ACIDOPHILUS TAB PO SCH ×2 (07:24→19:51)
[2017-01-07] MEDS: amLODIPine BESYLATE 5 MG TAB PO SCH (07:24)
[2017-01-07] MEDS: GABAPENTIN 300 MG CAP PO SCH ×3 (07:24→18:08)
[2017-01-07] MEDS: FERROUS SULFATE 325 MG (65 MG ELEMENTAL IRON) TAB PO SCH ×2 (07:24→17:00)
[2017-01-07] MEDS: FUROSEMIDE 20 MG TAB PO SCH (07:25)
[2017-01-07] MEDS: guaiFENesin E.R. 600 MG TAB PO SCH ×2 (07:25→19:56)
[2017-01-07] MEDS: SODIUM CHLORIDE 0.9% FLUSH 10 ML FLUSH SCH ×2 (07:25→19:52)
[2017-01-07] MEDS: ARTIFICIAL TEARS OPTH SOLN 15 ML BTL EACH EYE SCH ×3 (07:25→18:00)
[2017-01-07] MEDS: DOCUSATE SODIUM 50 MG/SENNA 8.6 MG TAB PO SCH ×2 (07:25→19:52)
[2017-01-07] MEDS: CYCLOBENZAPRINE HCL 10 MG TAB PO SCH ×3 (07:25→18:08)
[2017-01-07] MEDS: SPIRONOLACTONE 25 MG TAB PO SCH (07:26)
[2017-01-07] MEDS: RIVAROXABAN 20 MG TAB PO SCH (07:26)
[2017-01-07] MEDS: SODIUM CHLOR 0.9% 1000 ML INJ 1,000 ML IV SCH ×2 (07:26→19:52)
[2017-01-07] MEDS: ACETAMINOPHEN 325 MG TAB PO PRN (13:27)
--- NOTE | 2017-01-07 18:21 | HHI.PR ---
Subjective Remarks 76 YOWF with Severe Endstage COPD, RF Extubated today On VM Feels well hungry, wants to eat Objective Vital Signs Vital Signs Date Time Temp Pulse Resp B/P Pulse Ox O2 Delivery O2 Flow Rate FiO2 01/07/17 16:00 80 01/07/17 16:00 98.3 80 21 145/78 91 01/07/17 15:00 80 01/07/17 14:00 81 01/07/17 13:32 93 Nasal Cannula 6.00 01/07/17 13:20 93 Nasal Cannula 6 01/07/17 12:27 92 40 01/07/17 12:00 74 01/07/17 12:00 99.0 73 27 142/79 90 01/07/17 10:00 72 01/07/17 09:35 93 40 01/07/17 08:00 98.3 82 28 133/80 92 01/07/17 08:00 82 01/07/17 06:00 74 01/07/17 04:11 96 50 01/07/17 04:00 98.3 57 14 103/56 98 01/07/17 04:00 57 01/07/17 04:00 50 01/07/17 02:00 60 01/07/17 01:26 99 50 01/07/17 00:00 74 01/07/17 00:00 50 01/07/17 00:00 98.4 74 23 122/59 97 01/06/17 22:00 50 01/06/17 22:00 55 01/06/17 20:14 96 50 01/06/17 20:00 57 01/06/17 20:00 98.0 57 19 142/73 96 I/O 01/06/17 01/06/17 01/06/17 01/07/17 01/07/17 01/07/17 07:00 15:00 23:00 07:00 15:00 23:00 Intake Total 880 ml 856 ml 1244 ml 944 ml 600 ml Output Total 230 ml 775 ml 650 ml 250 ml 2500 ml Balance 650 ml 81 ml 594 ml 694 ml -1900 ml Intake Oral 100 ml IV Total 880 ml 813 ml 1066 ml 815 ml 450 ml Tube Feeding 43 ml 178 ml 129 ml 50 ml Output Urine Total 230 ml 775 ml 650 ml 250 ml 2500 ml Stool Total 0 ml 0 ml 0 ml 0 ml # Bowel Movements 0 Result Diagram: 01/05/17 1645 01/05/17 1645 Objective Remarks GENERAL: Elderly wf, weak sob SKIN: Warm and dry. HEAD: Normocephalic. EYES: No scleral icterus. No injection or drainage. NECK: Supple, trachea midline. No JVD or lymphadenopathy. CARDIOVASCULAR: Regular rate and rhythm without murmurs, gallops, or rubs. RESPIRATORY: Breath sounds equal bilaterally. No accessory muscle use. GASTROINTESTINAL: Abdomen soft, non-tender, nondistended. MUSCULOSKELETAL: No cyanosis, or edema. BACK: Nontender without obvious deformity. No CVA tenderness. A/P Assessment and Plan Rf, s/p extubation 01/07 Severe COPD Anxiety basal infilterates Plan; Aerosol nebs IV Solumedrol cont Abx Supplement 02 CPAP at night and prn Arvind Cummings MD Jan 07, 2017 18:21
[2017-01-07] MEDS: ALPRAZolam 0.25 MG TAB PO PRN (19:52)
[2017-01-07] MEDS: FLUTICASONE 100 MCG/VILANTEROL 25 MCG INHALER INH SCH (21:00)
[2017-01-08] VITALS (19 sets, daily range): BP systolic 124–158; BP diastolic 64–78; PULSE 55–84; RESP 19–41; TEMP 97.6–98.6; O2SAT 83–97
[2017-01-08] MEDS: RESP: ALBUTEROL 2.5 MG/IPRATROPIUM 0.5 MG NEB (SCH) INH ×6 (00:21→20:25)
[2017-01-08] MEDS: DOXYCYCLINE INJ 100 MG in SODIUM CHLORIDE 0.9% INJ 100 ML IV SCH ×2 (02:35→11:48)
[2017-01-08] MEDS: PANTOPRAZOLE SODIUM 40 MG VIAL IV PUSH SCH (02:36)
[2017-01-08] MEDS: methylPREDNISolone SOD SUCC 40 MG/1 ML VIAL IV PUSH SCH ×3 (02:36→15:51)
[2017-01-08] MEDS: ACETAMINOPHEN 325 MG TAB PO PRN ×2 (02:44→09:05)
[2017-01-08] MEDS: ALPRAZolam 0.25 MG TAB PO PRN (03:25)
[2017-01-08] MEDS: FLUTICASONE 100 MCG/VILANTEROL 25 MCG INHALER INH SCH ×2 (03:25→21:03)
[2017-01-08] MEDS: AZTREONAM INJ 1,000 MG in SODIUM CHLORIDE 0.9% INJ 100 ML IV SCH ×3 (03:26→20:55)
[2017-01-08] MEDS: CHLORHEXIDINE GLUCONATE 2 % 1 PACK (2 CLOTHS) TOP SCH (03:27)
--- NOTE | 2017-01-08 05:16 | RADRPT ---
EXAM DATE/TIME: 01/08/2017 03:55 [facility] COMPARISON: CHEST SINGLE AP, January 06, 2017, 5:15. INDICATIONS : Respiratory distress. MEDICAL HISTORY : Carcinoma, thyroid. Chronic obstructive pulmonary disease. Hypercholesterolemia. SURGICAL HISTORY : Tonsillectomy. Tubal ligation. ENCOUNTER: Subsequent ACUITY: 4 - 6 days PAIN SCORE: Non-responsive. LOCATION: Bilateral chest FINDINGS: The endotracheal tube and NG tube have been removed. There is no pneumothorax. There continues to be interstitial infiltrates bilaterally. The heart size is stable. There is some hypoaeration of the dayo g mcgill most likely from poor inspiration. CONCLUSION: There continues to be some interstitial infiltrates bilaterally. Alber Prasad MD on January 08, 2017 at 5:14 Board Certified Radiologist. This report was verified electronically.
[2017-01-08 06:06] LABS: AUTOMATED NEUTROPHIL # 8.4 TH/MM3 (1.8-7.7); BASOPHIL % 0.2 % (0.0-2.0); HEMATOCRIT 30.5 % (35.0-46.0); HEMO FLAGS DIFF FINAL; LYMPH % 7.8 % (9.0-44.0); LYMPHOCYTE # 0.7 TH/MM3 (1.0-4.8); MEAN CELL VOLUME 96.5 FL (80.0-100.0); MEAN CORPUSCULAR HEMOGLOBIN 31.3 PG (27.0-34.0); MEAN CORPUSCULAR HGB CONC 32.5 % (32.0-36.0); PLATELET COUNT 221 TH/MM3 (150-450); RED BLOOD COUNT 3.16 MIL/MM3 (4.00-5.30); RED CELL DISTRIBUTION WIDTH 17.1 % (11.6-17.2); WHITE BLOOD COUNT 9.3 TH/MM3 (4.0-11.0)
[2017-01-08 06:59] LABS: ALKALINE PHOSPHATASE 35 U/L (45-117); ALT (GPT) 17 U/L (10-53); ANION GAP 8 MEQ/L (5-15); AST (GOT) 15 U/L (15-37); BICARBONATE 33.2 MEQ/L (21.0-32.0); BLOOD UREA NITROGEN 31 MG/DL (7-18); CHLORIDE 97 MEQ/L (98-107); GLOMERULAR FILTRATION RATE 64 ML/MIN (>89); MAGNESIUM 2.4 MG/DL (1.5-2.5); SODIUM (NA) 138 MEQ/L (136-145); TOTAL BILIRUBIN ADULT 0.5 MG/DL (0.2-1.0)
[2017-01-08] MEDS: DOCUSATE SODIUM 50 MG/SENNA 8.6 MG TAB PO SCH ×2 (08:49→20:55)
[2017-01-08] MEDS: METOPROLOL TARTRATE 50 MG TAB PO SCH ×2 (08:49→20:55)
[2017-01-08] MEDS: guaiFENesin E.R. 600 MG TAB PO SCH ×2 (08:49→20:55)
[2017-01-08] MEDS: RIVAROXABAN 20 MG TAB PO SCH (08:49)
[2017-01-08] MEDS: GABAPENTIN 300 MG CAP PO SCH ×3 (08:49→17:30)
[2017-01-08] MEDS: FERROUS SULFATE 325 MG (65 MG ELEMENTAL IRON) TAB PO SCH ×3 (08:49→15:51)
[2017-01-08] MEDS: CYCLOBENZAPRINE HCL 10 MG TAB PO SCH ×3 (08:50→17:31)
[2017-01-08] MEDS: SPIRONOLACTONE 25 MG TAB PO SCH (08:50)
[2017-01-08] MEDS: LACTOBACILLUS ACIDOPHILUS TAB PO SCH ×2 (08:50→20:55)
[2017-01-08] MEDS: SODIUM CHLORIDE 0.9% FLUSH 10 ML FLUSH SCH ×2 (08:50→21:03)
[2017-01-08] MEDS: FUROSEMIDE 20 MG TAB PO SCH (08:50)
[2017-01-08] MEDS: amLODIPine BESYLATE 5 MG TAB PO SCH (08:50)
[2017-01-08] MEDS: ARTIFICIAL TEARS OPTH SOLN 15 ML BTL EACH EYE SCH ×3 (08:50→18:00)
[2017-01-08] MEDS: SODIUM CHLOR 0.9% 1000 ML INJ 1,000 ML IV SCH (08:51)
--- NOTE | 2017-01-08 14:15 | HHI.CCPN ---
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 Patient resides in a intermediate and was found to be drowsy and somewhat unresponsive, her O2 sat was assessed at 65%. Patient was given albuterol at the intermediate with no improvement, 911 was called and patient was brought to the emergency department. The last admission for acute respiratory failure and pneumonia was one month ago. Her other medical problems include congestive heart failure and DVT currently on Xarelto. SUBJ: 01/06: Remains intubated sedated, wakes up easily. Fio2 requirement remains high at 75%, CXR showing interval improvement 01/07: Wakes up easily on propofol follows commands. FiO2 down to 50%. We will attempt CPAP trial 01/08: Extubated yesterday, breathing does not look labored but requiring high oxygen to maintain sats above 88%. Intermittently needing BiPAP. Sputum culture with MRSA. By mouth Zyvox started Objective Vital Signs Date Time Temp Pulse Resp B/P Pulse Ox O2 Delivery O2 Flow Rate FiO2 01/08/17 10:34 93 55 01/08/17 10:00 58 01/08/17 08:00 98.4 22 142/71 01/07/17 13:32 Nasal Cannula 6.00 Intake and Output 01/07/17 01/07/17 01/08/17 08:00 16:00 00:00 Intake Total 944 ml 600 ml 781 ml Output Total 250 ml 2500 ml 2000 ml Balance 694 ml -1900 ml -1219 ml Result Diagram: 01/08/17 0521 01/08/17 0521 Other Results Microbiology Date/Time Procedure Status Source Growth 01/05/17 17:40 Urine Culture - Final Complete Urine Random Urine <10,000 CFU/ML MIXED KHANG... Imaging Last 24 hours Impressions Chest X-Ray 01/05/17 1636 Signed Impressions: Service Date/Time: Thursday, January 05, 2017 16:33 - CONCLUSION: Poor lung volumes. Bilateral pleural effusions. Av Ramirez MD Objective Remarks GENERAL/NEURO: Elderly woman on VM with O2 sat 85%. Alert awake oriented. No focal deficits SKIN: Warm and dry. HEAD: Normocephalic. EYES: No scleral icterus. No injection or drainage. NECK: Supple, trachea midline. No JVD or lymphadenopathy. CARDIOVASCULAR: Regular rate and rhythm without murmurs, gallops, or rubs. RESPIRATORY: Breath sounds equal bilaterally, but diminished. No wheezes heard GASTROINTESTINAL: Abdomen soft, non-tender, nondistended. MUSCULOSKELETAL: No cyanosis, or edema. BACK: Nontender without obvious deformity. No CVA tenderness. EXTREMITIES: No clubbing cyanosis or edema A/P Assessment and Plan Acute hypoxemic respiratory failure Acute COPD exacerbation - Empiric antibiotics - IV steroids, DuoNeb scheduled and when necessary - Extubated 01/07, requiring partial nonrebreather and intermittent BiPAP - Start by mouth Zyvox for MRSA in sputum Congestive heart failure - Metoprolol - Lasix 20 mg by mouth daily, give additional 40 mg Lasix IV 1 yesterday, repeat 40 mg IV today - Spironolactone History of DVTs - Xarelto Peripheral neuropathy - Gabapentin DVT GI prophylaxis - Teds SCDs - Xarelto tube feeds and pantoprazole Critical Care: 30 MIN Patient remains critically ill. Extubated yesterday but requiring partial nonrebreather now on intermittent BiPAP. Patient had multiple readmissions and intubations in the past. She is at high risk for further respiratory decompensation and intubation. Continue ICU management Nora Hutchinson MD Jan 08, 2017 14:14
[2017-01-08] MEDS ORDERED: FUROSEMIDE 40 MG/4 ML VIAL IV PUSH ONE (15:00)
--- NOTE | 2017-01-08 15:28 | HHI.PR ---
Subjective Remarks 76 YOWF with Severe Endstage COPD, RF Extubated 01/07 Feels weak On NRB mask No fever no cough or sp Objective Vital Signs Vital Signs Date Time Temp Pulse Resp B/P Pulse Ox O2 Delivery O2 Flow Rate FiO2 01/08/17 14:00 59 01/08/17 12:00 98.6 58 24 136/70 83 01/08/17 12:00 58 01/08/17 10:34 93 55 01/08/17 10:00 58 01/08/17 08:17 91 55 01/08/17 08:00 98.4 62 22 142/71 91 01/08/17 08:00 62 01/08/17 06:00 56 01/08/17 04:41 92 55 01/08/17 04:00 56 01/08/17 04:00 98.0 56 19 124/64 93 01/08/17 02:00 55 01/08/17 00:21 95 55 01/08/17 00:00 98.0 58 20 136/69 95 01/08/17 00:00 58 01/07/17 22:00 53 01/07/17 20:00 98.2 79 30 130/86 97 01/07/17 20:00 79 01/07/17 19:26 93 70 01/07/17 18:00 81 01/07/17 16:00 80 01/07/17 16:00 98.3 80 21 145/78 91 I/O 01/07/17 01/07/17 01/07/17 01/08/17 01/08/17 01/08/17 07:00 15:00 23:00 07:00 15:00 23:00 Intake Total 944 ml 600 ml 781 ml 630 ml 955 ml Output Total 250 ml 2500 ml 2000 ml 500 ml 1000 ml Balance 694 ml -1900 ml -1219 ml 130 ml -45 ml Intake Oral 100 ml 150 ml 100 ml 50 ml IV Total 815 ml 450 ml 631 ml 530 ml 905 ml Tube Feeding 129 ml 50 ml Output Urine Total 250 ml 2500 ml 2000 ml 500 ml 1000 ml Stool Total 0 ml 0 ml # Bowel Movements 0 0 0 Result Diagram: 01/08/1752001/08/17520 Objective Remarks GENERAL: Elderly wf, weak sob SKIN: Warm and dry. HEAD: Normocephalic. EYES: No scleral icterus. No injection or drainage. NECK: Supple, trachea midline. No JVD or lymphadenopathy. CARDIOVASCULAR: Regular rate and rhythm without murmurs, gallops, or rubs. RESPIRATORY: Breath sounds equal bilaterally. No accessory muscle use. GASTROINTESTINAL: Abdomen soft, non-tender, nondistended. MUSCULOSKELETAL: No cyanosis, or edema. BACK: Nontender without obvious deformity. No CVA tenderness. A/P Assessment and Plan Rf, s/p extubation 01/07 Severe COPD Anxiety basal infilterates Plan; Aerosol nebs IV Solumedrol cont Abx Supplement 02 CPAP at night and prn Arvind Cummings MD Jan 08, 2017 15:28
[2017-01-08] MEDS: MORPHINE SULFATE 4 MG/ML INJ IV PUSH PRN (15:52)
[2017-01-08] MEDS: LINEZOLID 600 MG TAB PO SCH ×2 (16:11→20:55)
[2017-01-09] VITALS (24 sets, daily range): BP systolic 130–156; BP diastolic 68–88; PULSE 54–81; RESP 22–36; TEMP 98.1–98.5; O2SAT 89–100
[2017-01-09] MEDS: DOXYCYCLINE INJ 100 MG in SODIUM CHLORIDE 0.9% INJ 100 ML IV SCH ×2 (00:18→14:40)
[2017-01-09] MEDS: methylPREDNISolone SOD SUCC 40 MG/1 ML VIAL IV PUSH SCH ×3 (00:18→17:13)
[2017-01-09] MEDS: ALPRAZolam 0.25 MG TAB PO PRN (00:18)
[2017-01-09] MEDS: PANTOPRAZOLE SODIUM 40 MG VIAL IV PUSH SCH (00:23)
[2017-01-09] MEDS: RESP: ALBUTEROL 2.5 MG/IPRATROPIUM 0.5 MG NEB (SCH) INH ×3 (01:00→09:02)
[2017-01-09] MEDS: AZTREONAM INJ 1,000 MG in SODIUM CHLORIDE 0.9% INJ 100 ML IV SCH ×3 (03:36→20:16)
[2017-01-09] MEDS: CHLORHEXIDINE GLUCONATE 2 % 1 PACK (2 CLOTHS) TOP SCH (04:28)
[2017-01-09] MEDS: SODIUM CHLORIDE 0.9% FLUSH 10 ML FLUSH SCH ×2 (09:00→20:16)
[2017-01-09] MEDS: guaiFENesin E.R. 600 MG TAB PO SCH ×2 (09:59→20:16)
[2017-01-09] MEDS: CYCLOBENZAPRINE HCL 10 MG TAB PO SCH ×3 (09:59→17:13)
[2017-01-09] MEDS: LINEZOLID 600 MG TAB PO SCH ×2 (09:59→20:17)
[2017-01-09] MEDS: GABAPENTIN 300 MG CAP PO SCH ×3 (09:59→17:13)
[2017-01-09] MEDS: amLODIPine BESYLATE 5 MG TAB PO SCH (09:59)
[2017-01-09] MEDS: ARTIFICIAL TEARS OPTH SOLN 15 ML BTL EACH EYE SCH ×3 (10:00→17:13)
[2017-01-09] MEDS: FERROUS SULFATE 325 MG (65 MG ELEMENTAL IRON) TAB PO SCH ×3 (10:00→17:00)
[2017-01-09] MEDS: LACTOBACILLUS ACIDOPHILUS TAB PO SCH ×2 (10:00→20:16)
[2017-01-09] MEDS: DOCUSATE SODIUM 50 MG/SENNA 8.6 MG TAB PO SCH ×2 (10:00→20:17)
[2017-01-09] MEDS: SPIRONOLACTONE 25 MG TAB PO SCH (10:00)
[2017-01-09] MEDS: FUROSEMIDE 20 MG TAB PO SCH (10:00)
[2017-01-09] MEDS: RIVAROXABAN 20 MG TAB PO SCH (10:01)
[2017-01-09] MEDS: METOPROLOL TARTRATE 50 MG TAB PO SCH ×2 (10:01→20:16)
[2017-01-09] MEDS ORDERED: BUMETANIDE INJ 1 MG/4 ML VIAL IV PUSH ONE (10:30)
[2017-01-09] MEDS ORDERED: RESP: ALBUTEROL 2.5 MG/IPRATROPIUM 0.5 MG NEB (PRN) NEB (10:30)
--- NOTE | 2017-01-09 10:42 | HHI.CCPN ---
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 Patient resides in a senior living and was found to be drowsy and somewhat unresponsive, her O2 sat was assessed at 65%. Patient was given albuterol at the senior living with no improvement, 911 was called and patient was brought to the emergency department. The last admission for acute respiratory failure and pneumonia was one month ago. Her other medical problems include congestive heart failure and DVT currently on Xarelto. SUBJ: 01/06: Remains intubated sedated, wakes up easily. Fio2 requirement remains high at 75%, CXR showing interval improvement 01/07: Wakes up easily on propofol follows commands. FiO2 down to 50%. We will attempt CPAP trial 01/08: Extubated yesterday, breathing does not look labored but requiring high oxygen to maintain sats above 88%. Intermittently needing BiPAP. Sputum culture with MRSA. By mouth Zyvox started 01/09 Patient was on BIPAP overnight 03/26 with 55% FIO2. Afebrile. Objective Vital Signs Date Time Temp Pulse Resp B/P Pulse Ox O2 Delivery O2 Flow Rate FiO2 01/09/17 09:03 99 Partial Rebreather 15.00 01/09/17 06:00 55 01/09/17 04:30 55 01/09/17 04:00 98.1 23 131/68 Intake and Output 01/08/17 01/08/17 01/09/17 08:00 16:00 00:00 Intake Total 630 ml 955 ml 597 ml Output Total 500 ml 1000 ml 1150 ml Balance 130 ml -45 ml -553 ml Result Diagram: 01/08/17 0521 01/08/17 0521 Imaging Last 24 hours Impressions Chest X-Ray 01/05/17 1636 Signed Impressions: Service Date/Time: Thursday, January 05, 2017 16:33 - CONCLUSION: Poor lung volumes. Bilateral pleural effusions. Av Ramirez MD Objective Remarks GENERAL/NEURO: Elderly woman on BIPAP overnight. Alert awake oriented. No focal deficits SKIN: Warm and dry. HEAD: Normocephalic. EYES: No scleral icterus. No injection or drainage. NECK: Supple, trachea midline. No JVD or lymphadenopathy. CARDIOVASCULAR: Regular rate and rhythm without murmurs, gallops, or rubs. RESPIRATORY: Breath sounds equal bilaterally, but diminished. No wheezes heard GASTROINTESTINAL: Abdomen soft, non-tender, nondistended. MUSCULOSKELETAL: No cyanosis, or edema. BACK: Nontender without obvious deformity. No CVA tenderness. EXTREMITIES: No clubbing cyanosis or edema A/P Assessment and Plan 1)Acute hypoxemic respiratory failure 2) COPD exacerbation 3)Congestive heart failure 4)MRSA pneumonia 5)History of DVTs 6)Peripheral neuropathy Plan Neuro: Awake and alert Pulm: Wean down oxygen as christophe keep sat >92% Bronchodilators(DuoNeb, Breo) Solumederol 40mg Q8 NIPPV PRN for resp distress CV: Monitor HR and BP keep MAP>65mmHg Echo 12/05: EF 65-70%, grade I diastolic dysfunction On Lopressor 50mg Q12, Norvasc 5mg daily, Aldactone 12.5 mg daily, Lasix 20mg daily : Monitor renal function, I/O's, electrolytes replacement per protocol. d/c IVF, diurese with Bumex 1mg x1 GI: On PO diet, IV Protonix ID: Continue with abx ( Aztreonam, Zyvox, Doxycycline) monitor for signs of infections ( Fever, WBC) Sputum 01/06- MRSA Heme: Monitor CBC Endo: SSI for glycemic control GI prophylaxis- On IV Protonix DVT prophylaxis- SCD, Xarelto 20mg daily Check labs today Level 3 Eve Davis MD Jan 09, 2017 10:42
[2017-01-09] MEDS: RESP: ALBUTEROL 2.5 MG/IPRATROPIUM 0.5 MG NEB (SCH) NEB ×4 (12:00→23:44)
[2017-01-09 12:25] LABS: AUTOMATED NEUTROPHIL # 7.5 TH/MM3 (1.8-7.7); BASOPHIL % 0.2 % (0.0-2.0); HEMATOCRIT 31.7 % (35.0-46.0); HEMO FLAGS DIFF FINAL; LYMPH % 13.9 % (9.0-44.0); LYMPHOCYTE # 1.3 TH/MM3 (1.0-4.8); MEAN CELL VOLUME 98.1 FL (80.0-100.0); MEAN CORPUSCULAR HEMOGLOBIN 31.4 PG (27.0-34.0); MONO % 5.5 % (0.0-8.0); NEUT % 80.4 % (16.0-70.0); PLATELET COUNT 224 TH/MM3 (150-450); RED BLOOD COUNT 3.23 MIL/MM3 (4.00-5.30); RED CELL DISTRIBUTION WIDTH 16.7 % (11.6-17.2); WHITE BLOOD COUNT 9.3 TH/MM3 (4.0-11.0)
[2017-01-09 12:40] LABS: MAGNESIUM 2.1 MG/DL (1.5-2.5); POTASSIUM 3.8 MEQ/L (3.5-5.1)
[2017-01-09] MEDS ORDERED: MAGNESIUM SULFATE INJ 4 GM in SODIUM CHLORIDE 0.9% INJ 92 ML IV PRN ×2 (13:30→16:00)
[2017-01-09] MEDS ORDERED: POTASSIUM PHOSPHATE MONOBASIC 500 MG TAB PO PRN (13:30)
[2017-01-09] MEDS ORDERED: POTASSIUM PHOSPHATE MONOBASIC 500 MG TAB PO/TUBE PRN ×2 (13:30→16:00)
[2017-01-09] MEDS ORDERED: MAGNESIUM OXIDE 400 MG TAB PO PRN ×2 (13:30→16:00)
[2017-01-09] MEDS ORDERED: SODIUM PHOSPHATE INJ 30 MMOL in SODIUM CHLOR 0.9% 250 ML INJ 240 ML IV PRN ×2 (13:30→16:00)
[2017-01-09] MEDS ORDERED: MAGNESIUM SULFATE INJ 2 GM in SODIUM CHLORIDE 0.9% INJ 96 ML IV PRN ×2 (13:30→16:00)
[2017-01-09] MEDS ORDERED: POTASSIUM CHLOR 20 MEQ PREMIX 100 ML IV PRN ×4 (13:30→16:00)
[2017-01-09] MEDS ORDERED: POTASSIUM CHLORIDE 25 MEQ EFFERVESCENT TAB PO PRN ×2 (13:30→16:00)
[2017-01-09] MEDS ORDERED: POTASSIUM CHLOR 40 MEQ PREMIX 100 ML IV PRN ×4 (13:30→16:00)
[2017-01-09] MEDS ORDERED: POTASSIUM PHOSPHATE INJ 30 MMOL in SODIUM CHLOR 0.9% 250 ML INJ 250 ML IV PRN ×2 (13:30→16:00)
[2017-01-09] MEDS: POTASSIUM PHOSPHATE MONOBASIC 500 MG TAB PO PRN ×2 (17:12→20:17)
--- NOTE | 2017-01-09 18:17 | HHI.PR ---
Subjective Remarks 76 YOWF with Severe Endstage COPD, RF Extubated 01/07 Feels weak On NRB mask No fever no cough or sp Son at BS Objective Vital Signs Vital Signs Date Time Temp Pulse Resp B/P Pulse Ox O2 Delivery O2 Flow Rate FiO2 01/09/17 09:03 99 Partial Rebreather 15.00 01/09/17 06:00 55 01/09/17 04:30 92 55 01/09/17 04:00 58 01/09/17 04:00 98.1 58 23 131/68 93 01/09/17 03:12 91 55 01/09/17 02:00 63 01/09/17 00:00 98.2 62 34 142/72 94 01/09/17 00:00 62 01/08/17 23:00 60 20 146/73 97 01/08/17 22:00 76 01/08/17 22:00 76 29 140/70 97 01/08/17 21:00 78 41 131/66 95 01/08/17 20:25 97 Partial Rebreather 15.00 01/08/17 20:00 97.6 75 30 137/78 95 01/08/17 20:00 75 I/O 01/08/17 01/08/17 01/08/17 01/09/17 01/09/17 01/09/17 07:00 15:00 23:00 07:00 15:00 23:00 Intake Total 630 ml 955 ml 597 ml 797 ml Output Total 500 ml 1000 ml 1150 ml 725 ml Balance 130 ml -45 ml -553 ml 72 ml Intake Oral 100 ml 50 ml 60 ml 6 ml IV Total 530 ml 905 ml 537 ml 791 ml Output Urine Total 500 ml 1000 ml 1150 ml 725 ml # Bowel Movements 0 0 0 0 Result Diagram: 01/09/17 1113 01/09/17 1113 Objective Remarks GENERAL: Elderly wf, weak sob SKIN: Warm and dry. HEAD: Normocephalic. EYES: No scleral icterus. No injection or drainage. NECK: Supple, trachea midline. No JVD or lymphadenopathy. CARDIOVASCULAR: Regular rate and rhythm without murmurs, gallops, or rubs. RESPIRATORY: Breath sounds equal bilaterally. No accessory muscle use. GASTROINTESTINAL: Abdomen soft, non-tender, nondistended. MUSCULOSKELETAL: No cyanosis, or edema. BACK: Nontender without obvious deformity. No CVA tenderness. A/P Assessment and Plan Rf, s/p extubation 01/07 Severe COPD Anxiety basal infilterates Plan; Aerosol nebs IV Solumedrol cont Abx Supplement 02 CPAP at night and prn Encourage PO Dw family at BS. Arvind Cummings MD Jan 09, 2017 18:17
[2017-01-09] MEDS: FLUTICASONE 100 MCG/VILANTEROL 25 MCG INHALER INH SCH (20:16)
[2017-01-10] VITALS (23 sets, daily range): BP systolic 110–151; BP diastolic 61–95; PULSE 56–101; RESP 17–40; TEMP 98.1–98.5; O2SAT 89–100
[2017-01-10] MEDS: DOXYCYCLINE INJ 100 MG in SODIUM CHLORIDE 0.9% INJ 100 ML IV SCH ×2 (01:35→15:54)
[2017-01-10] MEDS: PANTOPRAZOLE SODIUM 40 MG VIAL IV PUSH SCH (01:35)
[2017-01-10] MEDS: methylPREDNISolone SOD SUCC 40 MG/1 ML VIAL IV PUSH SCH ×3 (01:35→21:10)
[2017-01-10] MEDS: MORPHINE SULFATE 4 MG/ML INJ IV PUSH PRN ×2 (01:36→15:54)
[2017-01-10] MEDS: RESP: ALBUTEROL 2.5 MG/IPRATROPIUM 0.5 MG NEB (SCH) NEB ×5 (03:27→20:01)
[2017-01-10] MEDS: AZTREONAM INJ 1,000 MG in SODIUM CHLORIDE 0.9% INJ 100 ML IV SCH ×3 (03:56→21:10)
[2017-01-10] MEDS: CHLORHEXIDINE GLUCONATE 2 % 1 PACK (2 CLOTHS) TOP SCH (04:00)
[2017-01-10 05:15] LABS: AUTOMATED NEUTROPHIL # 7.1 TH/MM3 (1.8-7.7); BASOPHIL % 0.2 % (0.0-2.0); HEMO FLAGS DIFF FINAL; LYMPH % 8.7 % (9.0-44.0); LYMPHOCYTE # 0.7 TH/MM3 (1.0-4.8); MEAN CELL VOLUME 96.4 FL (80.0-100.0); MEAN CORPUSCULAR HEMOGLOBIN 31.6 PG (27.0-34.0); MEAN CORPUSCULAR HGB CONC 32.8 % (32.0-36.0); MONO % 2.9 % (0.0-8.0); NEUT % 88.2 % (16.0-70.0); PLATELET COUNT 225 TH/MM3 (150-450); RED BLOOD COUNT 3.32 MIL/MM3 (4.00-5.30); RED CELL DISTRIBUTION WIDTH 16.7 % (11.6-17.2); WHITE BLOOD COUNT 8.1 TH/MM3 (4.0-11.0)
[2017-01-10 05:39] LABS: BICARBONATE 34.6 MEQ/L (21.0-32.0); POTASSIUM 4.2 MEQ/L (3.5-5.1)
[2017-01-10] MEDS: ALPRAZolam 0.25 MG TAB PO PRN (07:57)
[2017-01-10] MEDS: FERROUS SULFATE 325 MG (65 MG ELEMENTAL IRON) TAB PO SCH ×3 (08:00→17:00)
--- NOTE | 2017-01-10 08:36 | RADRPT ---
EXAM DATE/TIME: 01/10/2017 07:56 [facility] COMPARISON: CHEST SINGLE AP, January 08, 2017, 3:55. INDICATIONS : Shortness of breath. MEDICAL HISTORY : Carcinoma, thyroid. Chronic obstructive pulmonary disease.Hypercholesterolemia. SURGICAL HISTORY : Tonsillectomy. Tubal ligation. ENCOUNTER: Subsequent ACUITY: 1 day PAIN SCORE: Non-responsive. LOCATION: Bilateral chest FINDINGS: The previously seen interstitial process has resolved probably pulmonary edema that resolved. There i s opacity in both lung bases part of it could be technical medially overlapping the hemidiaphragms, h owever consolidation is difficult to exclude. CONCLUSION: Bibasilar opacity possibly technical versus consolidation. Anuradha Anthony MD on January 10, 2017 at 8:33 Board Certified Radiologist. This report was verified electronically.
[2017-01-10] MEDS: SODIUM CHLORIDE 0.9% FLUSH 10 ML FLUSH SCH ×2 (09:00→21:10)
--- NOTE | 2017-01-10 10:16 | HHI.CCPN ---
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 Patient resides in a retirement and was found to be drowsy and somewhat unresponsive, her O2 sat was assessed at 65%. Patient was given albuterol at the retirement with no improvement, 911 was called and patient was brought to the emergency department. The last admission for acute respiratory failure and pneumonia was one month ago. Her other medical problems include congestive heart failure and DVT currently on Xarelto. SUBJ: 01/06: Remains intubated sedated, wakes up easily. Fio2 requirement remains high at 75%, CXR showing interval improvement 01/07: Wakes up easily on propofol follows commands. FiO2 down to 50%. We will attempt CPAP trial 01/08: Extubated yesterday, breathing does not look labored but requiring high oxygen to maintain sats above 88%. Intermittently needing BiPAP. Sputum culture with MRSA. By mouth Zyvox started 01/09 Patient was on BIPAP overnight 03/26 with 55% FIO2. Afebrile. 01/10 Patient on partial rebreather with good sats. Afebrile. Objective Vital Signs Date Time Temp Pulse Resp B/P Pulse Ox O2 Delivery O2 Flow Rate FiO2 01/10/17 07:37 95 Partial Rebreather 12.00 01/10/17 06:00 68 01/10/17 04:00 98.5 35 134/69 01/09/17 04:30 55 Intake and Output 01/09/17 01/09/17 01/10/17 08:00 16:00 00:00 Intake Total 797 ml 622 ml 460 ml Output Total 725 ml 1400 ml 400 ml Balance 72 ml -778 ml 60 ml Result Diagram: 01/10/17 0435 01/10/17 0435 Other Results Laboratory Tests Test 01/09/17 01/09/17 01/10/17 11:13 18:34 04:35 White Blood Count 9.3 TH/MM3 8.1 TH/MM3 Red Blood Count 3.23 MIL/MM3 3.32 MIL/MM3 Hemoglobin 10.1 GM/DL 10.5 GM/DL Hematocrit 31.7 % 32.0 % Mean Corpuscular Volume 98.1 FL 96.4 FL Mean Corpuscular Hemoglobin 31.4 PG 31.6 PG Mean Corpuscular Hemoglobin 32.0 % 32.8 % Concent Red Cell Distribution Width 16.7 % 16.7 % Platelet Count 224 TH/MM3 225 TH/MM3 Mean Platelet Volume 7.7 FL 7.7 FL Neutrophils (%) (Auto) 80.4 % 88.2 % Lymphocytes (%) (Auto) 13.9 % 8.7 % Monocytes (%) (Auto) 5.5 % 2.9 % Eosinophils (%) (Auto) 0.0 % 0.0 % Basophils (%) (Auto) 0.2 % 0.2 % Neutrophils # (Auto) 7.5 TH/MM3 7.1 TH/MM3 Lymphocytes # (Auto) 1.3 TH/MM3 0.7 TH/MM3 Monocytes # (Auto) 0.5 TH/MM3 0.2 TH/MM3 Eosinophils # (Auto) 0.0 TH/MM3 0.0 TH/MM3 Basophils # (Auto) 0.0 TH/MM3 0.0 TH/MM3 CBC Comment DIFF FINAL DIFF FINAL Differential Comment Sodium Level 138 MEQ/L 139 MEQ/L Potassium Level 3.8 MEQ/L 4.2 MEQ/L Chloride Level 99 MEQ/L 99 MEQ/L Carbon Dioxide Level 33.0 MEQ/L 34.6 MEQ/L Anion Gap 6 MEQ/L 5 MEQ/L Blood Urea Nitrogen 28 MG/DL 30 MG/DL Creatinine 0.86 MG/DL 0.82 MG/DL Estimat Glomerular Filtration 64 ML/MIN 68 ML/MIN Rate Random Glucose 155 MG/DL 144 MG/DL Calcium Level 8.5 MG/DL 8.4 MG/DL Phosphorus Level 2.0 MG/DL 2.2 MG/DL 2.4 MG/DL Magnesium Level 2.1 MG/DL Imaging Last Impressions Chest X-Ray 01/10/17 0000 Signed Impressions: Service Date/Time: Tuesday, January 10, 2017 07:56 - CONCLUSION: Bibasilar opacity possibly technical versus consolidation. Anuradha Anthony MD Objective Remarks GENERAL/NEURO: Elderly woman on partial rebreather. Alert awake oriented. No focal deficits SKIN: Warm and dry. HEAD: Normocephalic. EYES: No scleral icterus. No injection or drainage. NECK: Supple, trachea midline. No JVD or lymphadenopathy. CARDIOVASCULAR: Regular rate and rhythm without murmurs, gallops, or rubs. RESPIRATORY: Breath sounds equal bilaterally, but diminished. No wheezes heard GASTROINTESTINAL: Abdomen soft, non-tender, nondistended. MUSCULOSKELETAL: No cyanosis, or edema. BACK: Nontender without obvious deformity. No CVA tenderness. EXTREMITIES: No clubbing cyanosis or edema A/P Assessment and Plan 1)Acute hypoxemic respiratory failure 2) COPD exacerbation 3)Congestive heart failure 4)MRSA pneumonia 5)History of DVTs 6)Peripheral neuropathy Plan Neuro: Awake and alert Pulm: Wean down oxygen as christophe keep sat >92% Bronchodilators(DuoNeb, Breo) Solumederol 40mg Q8 NIPPV PRN for resp distress CV: Monitor HR and BP keep MAP>65mmHg Echo 12/05: EF 65-70%, grade I diastolic dysfunction Decrease Lopressor 25mg Q12, Norvasc 5mg daily, Aldactone 12.5 mg daily, Lasix 20mg daily : Monitor renal function, I/O's, electrolytes replacement per protocol. Will need Phos replacement today GI: On PO diet, IV Protonix ID: Continue with abx ( Aztreonam, Zyvox, Doxycycline) monitor for signs of infections ( Fever, WBC) Sputum 01/06- MRSA, recheck sputum cx Heme: Monitor CBC Endo: SSI for glycemic control GI prophylaxis- On IV Protonix DVT prophylaxis- SCD, Xarelto 20mg daily Level 3 Eve Davis MD Jan 10, 2017 10:16
[2017-01-10] MEDS: GABAPENTIN 300 MG CAP PO SCH ×3 (10:38→17:26)
[2017-01-10] MEDS: FUROSEMIDE 20 MG TAB PO SCH (10:38)
[2017-01-10] MEDS: guaiFENesin E.R. 600 MG TAB PO SCH ×2 (10:38→21:11)
[2017-01-10] MEDS: LINEZOLID 600 MG TAB PO SCH ×2 (10:38→21:11)
[2017-01-10] MEDS: amLODIPine BESYLATE 5 MG TAB PO SCH (10:38)
[2017-01-10] MEDS: LACTOBACILLUS ACIDOPHILUS TAB PO SCH ×2 (10:38→21:10)
[2017-01-10] MEDS: SPIRONOLACTONE 25 MG TAB PO SCH (10:39)
[2017-01-10] MEDS: DOCUSATE SODIUM 50 MG/SENNA 8.6 MG TAB PO SCH ×2 (10:39→21:11)
[2017-01-10] MEDS: ARTIFICIAL TEARS OPTH SOLN 15 ML BTL EACH EYE SCH ×3 (10:39→17:26)
[2017-01-10] MEDS: CYCLOBENZAPRINE HCL 10 MG TAB PO SCH ×3 (10:39→17:26)
[2017-01-10] MEDS: RIVAROXABAN 20 MG TAB PO SCH (10:41)
[2017-01-10] MEDS: POTASSIUM PHOSPHATE MONOBASIC 500 MG TAB PO PRN ×2 (17:26→21:11)
[2017-01-10] MEDS: FLUTICASONE 100 MCG/VILANTEROL 25 MCG INHALER INH SCH (21:10)
[2017-01-10] MEDS: METOPROLOL TARTRATE 25 MG TAB PO SCH (21:11)
[2017-01-11] VITALS (14 sets, daily range): BP systolic 137–153; BP diastolic 66–83; PULSE 54–88; RESP 18–47; TEMP 97.6–98.6; O2SAT 89–98
[2017-01-11] MEDS: DOXYCYCLINE INJ 100 MG in SODIUM CHLORIDE 0.9% INJ 100 ML IV SCH (01:45)
[2017-01-11] MEDS: PANTOPRAZOLE SODIUM 40 MG VIAL IV PUSH SCH (01:46)
[2017-01-11] MEDS: CHLORHEXIDINE GLUCONATE 2 % 1 PACK (2 CLOTHS) TOP SCH (04:00)
[2017-01-11 04:44] LABS: AUTOMATED NEUTROPHIL # 7.8 TH/MM3 (1.8-7.7); BASOPHIL % 0.2 % (0.0-2.0); HEMATOCRIT 31.4 % (35.0-46.0); HEMO FLAGS DIFF FINAL; LYMPH % 8.3 % (9.0-44.0); LYMPHOCYTE # 0.7 TH/MM3 (1.0-4.8); MEAN CELL VOLUME 98.1 FL (80.0-100.0); MEAN CORPUSCULAR HGB CONC 32.6 % (32.0-36.0); MONO % 1.7 % (0.0-8.0); NEUT % 89.8 % (16.0-70.0); PLATELET COUNT 222 TH/MM3 (150-450); RED CELL DISTRIBUTION WIDTH 16.6 % (11.6-17.2); WHITE BLOOD COUNT 8.6 TH/MM3 (4.0-11.0)
[2017-01-11 05:03] LABS: BICARBONATE 30.7 MEQ/L (21.0-32.0); POTASSIUM 4.9 MEQ/L (3.5-5.1)
[2017-01-11] MEDS: AZTREONAM INJ 1,000 MG in SODIUM CHLORIDE 0.9% INJ 100 ML IV SCH (05:40)
[2017-01-11] MEDS: FERROUS SULFATE 325 MG (65 MG ELEMENTAL IRON) TAB PO SCH ×3 (08:00→18:03)
[2017-01-11] MEDS: RESP: ALBUTEROL 2.5 MG/IPRATROPIUM 0.5 MG NEB (SCH) NEB ×4 (08:27→19:28)
[2017-01-11] MEDS: FUROSEMIDE 20 MG TAB PO SCH (09:00)
[2017-01-11] MEDS: SPIRONOLACTONE 25 MG TAB PO SCH (09:02)
[2017-01-11] MEDS: guaiFENesin E.R. 600 MG TAB PO SCH ×2 (09:02→20:14)
[2017-01-11] MEDS: LACTOBACILLUS ACIDOPHILUS TAB PO SCH ×2 (09:02→20:14)
[2017-01-11] MEDS: METOPROLOL TARTRATE 25 MG TAB PO SCH ×2 (09:02→20:14)
[2017-01-11] MEDS: GABAPENTIN 300 MG CAP PO SCH ×3 (09:02→18:03)
[2017-01-11] MEDS: amLODIPine BESYLATE 5 MG TAB PO SCH (09:02)
[2017-01-11] MEDS: CYCLOBENZAPRINE HCL 10 MG TAB PO SCH ×3 (09:02→18:03)
[2017-01-11] MEDS: LINEZOLID 600 MG TAB PO SCH ×2 (09:02→20:15)
[2017-01-11] MEDS: methylPREDNISolone SOD SUCC 40 MG/1 ML VIAL IV PUSH SCH ×2 (09:02→20:14)
[2017-01-11] MEDS: RIVAROXABAN 20 MG TAB PO SCH (09:02)
[2017-01-11] MEDS: ARTIFICIAL TEARS OPTH SOLN 15 ML BTL EACH EYE SCH ×3 (09:03→18:03)
[2017-01-11] MEDS: DOCUSATE SODIUM 50 MG/SENNA 8.6 MG TAB PO SCH ×2 (09:03→20:15)
[2017-01-11] MEDS: SODIUM CHLORIDE 0.9% FLUSH 10 ML FLUSH SCH ×2 (09:04→20:14)
--- NOTE | 2017-01-11 10:12 | HHI.CCPN ---
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 Patient resides in a senior living and was found to be drowsy and somewhat unresponsive, her O2 sat was assessed at 65%. Patient was given albuterol at the senior living with no improvement, 911 was called and patient was brought to the emergency department. The last admission for acute respiratory failure and pneumonia was one month ago. Her other medical problems include congestive heart failure and DVT currently on Xarelto. SUBJ: 01/06: Remains intubated sedated, wakes up easily. Fio2 requirement remains high at 75%, CXR showing interval improvement 01/07: Wakes up easily on propofol follows commands. FiO2 down to 50%. We will attempt CPAP trial 01/08: Extubated yesterday, breathing does not look labored but requiring high oxygen to maintain sats above 88%. Intermittently needing BiPAP. Sputum culture with MRSA. By mouth Zyvox started 01/09 Patient was on BIPAP overnight 03/26 with 55% FIO2. Afebrile. 01/10 Patient on partial rebreather with good sats. Afebrile. 01/11 No events overnight. On Partial non rebreather , afebrile. Objective Vital Signs Date Time Temp Pulse Resp B/P Pulse Ox O2 Delivery O2 Flow Rate FiO2 01/11/17 08:28 93 Non-Rebreather 12.00 01/11/17 06:00 59 01/11/17 04:00 97.6 19 148/76 01/09/17 04:30 55 Intake and Output 01/10/17 01/10/17 01/10/17 07:59 15:59 23:59 Intake Total 278 ml 961 ml 249 ml Output Total 275 ml 300 ml 350 ml Balance 3 ml 661 ml -101 ml Result Diagram: 01/11/17 0403 01/11/17 0403 Other Results Laboratory Tests Test 01/11/17 04:03 White Blood Count 8.6 TH/MM3 Red Blood Count 3.20 MIL/MM3 Hemoglobin 10.3 GM/DL Hematocrit 31.4 % Mean Corpuscular Volume 98.1 FL Mean Corpuscular Hemoglobin 32.0 PG Mean Corpuscular Hemoglobin 32.6 % Concent Red Cell Distribution Width 16.6 % Platelet Count 222 TH/MM3 Mean Platelet Volume 8.0 FL Neutrophils (%) (Auto) 89.8 % Lymphocytes (%) (Auto) 8.3 % Monocytes (%) (Auto) 1.7 % Eosinophils (%) (Auto) 0.0 % Basophils (%) (Auto) 0.2 % Neutrophils # (Auto) 7.8 TH/MM3 Lymphocytes # (Auto) 0.7 TH/MM3 Monocytes # (Auto) 0.1 TH/MM3 Eosinophils # (Auto) 0.0 TH/MM3 Basophils # (Auto) 0.0 TH/MM3 CBC Comment DIFF FINAL Differential Comment Sodium Level 141 MEQ/L Potassium Level 4.9 MEQ/L Chloride Level 103 MEQ/L Carbon Dioxide Level 30.7 MEQ/L Anion Gap 7 MEQ/L Blood Urea Nitrogen 28 MG/DL Creatinine 0.76 MG/DL Estimat Glomerular Filtration 74 ML/MIN Rate Random Glucose 134 MG/DL Calcium Level 8.4 MG/DL Phosphorus Level 3.0 MG/DL Imaging Last Impressions Chest X-Ray 01/10/17 0000 Signed Impressions: Service Date/Time: Tuesday, January 10, 2017 07:56 - CONCLUSION: Bibasilar opacity possibly technical versus consolidation. Anuradha Anthony MD Objective Remarks GENERAL/NEURO: Elderly woman on partial rebreather. Alert awake oriented. No focal deficits SKIN: Warm and dry. HEAD: Normocephalic. EYES: No scleral icterus. No injection or drainage. NECK: Supple, trachea midline. No JVD or lymphadenopathy. CARDIOVASCULAR: Regular rate and rhythm without murmurs, gallops, or rubs. RESPIRATORY: Breath sounds equal bilaterally, but diminished. No wheezes heard GASTROINTESTINAL: Abdomen soft, non-tender, nondistended. MUSCULOSKELETAL: No cyanosis, or edema. BACK: Nontender without obvious deformity. No CVA tenderness. EXTREMITIES: No clubbing cyanosis or edema A/P Assessment and Plan 1)Acute hypoxemic respiratory failure 2) COPD exacerbation 3)Congestive heart failure 4)MRSA pneumonia 5)History of DVTs 6)Peripheral neuropathy Plan Neuro: Awake and alert Pulm: Wean down oxygen as christophe keep sat >92% Bronchodilators(DuoNeb, Breo) Solumederol 40mg BID, IS NIPPV PRN for resp distress, Pulm is following- Dr. Cummings CV: Monitor HR and BP keep MAP>65mmHg Echo 6/16: EF 65-70%, grade I diastolic dysfunction Lopressor 25mg Q12, Norvasc 5mg daily, Aldactone 12.5 mg daily, Lasix 20mg daily : Monitor renal function, I/O's, electrolytes replacement per protocol. GI: On PO diet, IV Protonix ID: Continue with abx ( Zyvox),d/c Aztreonam and Doxycycline monitor for signs of infections ( Fever, WBC) Sputum 01/06- MRSA, recheck sputum cx GI: On PO diet, Heme: Monitor CBC Endo: SSI for glycemic control GI prophylaxis- On IV Protonix DVT prophylaxis- SCD, Xarelto 20mg daily Will sign off and transfer care tp [facility] Level 3 Eve Davis MD Jan 11, 2017 10:12
[2017-01-11] MEDS ORDERED: GLUCAGON 1 MG/ML VIAL OTHER PRN (10:30)
[2017-01-11] MEDS ORDERED: DEXTROSE 50% IN WATER 50 ML VIAL(D50) IV PRN (10:30)
[2017-01-11] MEDS: FLUTICASONE 100 MCG/VILANTEROL 25 MCG INHALER INH SCH (20:14)
[2017-01-11] MEDS: MORPHINE SULFATE 4 MG/ML INJ IV PUSH PRN (20:15)
[2017-01-12] VITALS (15 sets, daily range): BP systolic 129–164; BP diastolic 71–80; PULSE 54–78; RESP 17–41; TEMP 97.6–99.4; O2SAT 89–99
[2017-01-12] MEDS: PANTOPRAZOLE SODIUM 40 MG VIAL IV PUSH SCH (02:15)
[2017-01-12] MEDS: MORPHINE SULFATE 4 MG/ML INJ IV PUSH PRN (02:15)
[2017-01-12] MEDS: CHLORHEXIDINE GLUCONATE 2 % 1 PACK (2 CLOTHS) TOP SCH (04:00)
[2017-01-12 06:04] LABS: AUTOMATED NEUTROPHIL # 7.4 TH/MM3 (1.8-7.7); BASOPHIL % 0.3 % (0.0-2.0); HEMATOCRIT 30.7 % (35.0-46.0); HEMO FLAGS DIFF FINAL; LYMPH % 14.8 % (9.0-44.0); LYMPHOCYTE # 1.3 TH/MM3 (1.0-4.8); MEAN CELL VOLUME 97.2 FL (80.0-100.0); MEAN CORPUSCULAR HGB CONC 32.9 % (32.0-36.0); MONO % 2.6 % (0.0-8.0); NEUT % 82.3 % (16.0-70.0); PLATELET COUNT 224 TH/MM3 (150-450); RED BLOOD COUNT 3.15 MIL/MM3 (4.00-5.30); RED CELL DISTRIBUTION WIDTH 16.3 % (11.6-17.2)
[2017-01-12 06:07] LABS: BICARBONATE 33.8 MEQ/L (21.0-32.0); POTASSIUM 4.6 MEQ/L (3.5-5.1)
[2017-01-12] MEDS: RESP: ALBUTEROL 2.5 MG/IPRATROPIUM 0.5 MG NEB (SCH) NEB ×4 (08:00→20:39)
[2017-01-12] MEDS: SPIRONOLACTONE 25 MG TAB PO SCH (09:00)
--- NOTE | 2017-01-12 09:00 | HHI.PR ---
Subjective Remarks Patient seen and examined this am. Vitals stable, saturating well on NC. There were no overnight events. Patient refused CPAP at night. Did require use of simple mast. Eating her breakfast. Denies CP. Endorses intermittent SOB. Requires two person assist. No other events overnight per nurse. Objective Vital Signs Date Time Temp Pulse Resp B/P Pulse Ox O2 Delivery O2 Flow Rate FiO2 01/12/17 06:00 64 01/12/17 04:00 56 01/12/17 04:00 97.6 56 21 159/76 99 01/12/17 02:00 59 01/12/17 00:00 98.0 56 17 138/72 89 01/12/17 00:00 56 01/11/17 22:00 69 01/11/17 21:27 89 Simple Mask 10.00 01/11/17 20:00 88 01/11/17 20:00 98.6 88 47 137/66 92 01/11/17 18:00 74 01/11/17 16:00 98.3 62 27 141/69 92 01/11/17 16:00 63 01/11/17 14:00 73 01/11/17 12:00 98.2 64 18 140/83 95 01/11/17 12:00 62 01/11/17 10:00 54 I/O 01/11/17 01/11/17 01/11/17 01/12/17 01/12/17 01/12/17 06:59 14:59 22:59 06:59 14:59 22:59 Intake Total 350 ml 720 ml 0 ml 0 ml Output Total 325 ml 600 ml 425 ml 450 ml Balance 25 ml 120 ml -425 ml -450 ml Intake Oral 240 ml 720 ml 0 ml 0 ml IV Total 110 ml 0 ml 0 ml Output Urine Total 325 ml 600 ml 425 ml 450 ml # Bowel Movements 0 0 2 0 Result Diagram: 01/12/17 0501/12/17 05 Imaging Last Impressions Chest X-Ray 01/10/17 0000 Signed Impressions: Service Date/Time: Tuesday, January 10, 2017 07:56 - CONCLUSION: Bibasilar opacity possibly technical versus consolidation. Anuradha Anthony MD Objective Remarks GENERAL: sitting in the side of the bed eating breakfast, nad SKIN: Warm and dry. HEAD: Normocephalic. EYES: No scleral icterus. No injection or drainage. NECK: Supple, trachea midline. No JVD or lymphadenopathy. CARDIOVASCULAR: Regular rate and rhythm without murmurs, gallops, or rubs. RESPIRATORY: Breath sounds equal bilaterally. breathing through pursed lips, no wheezing appreciated on exam, no rales or crackles GASTROINTESTINAL: Abdomen soft, non-tender, nondistended. MUSCULOSKELETAL: No cyanosis, or edema. BACK: Nontender without obvious deformity. No CVA tenderness. A/P Problem List: (1) Fibromyalgia ICD Code: M79.7 (2) DVT of lower extremity, bilateral ICD Code: I82.403 (3) COPD exacerbation ICD Code: J44.1 (4) Acute respiratory failure with hypoxia ICD Code: J96.01 (5) CHF (congestive heart failure) ICD Code: I50.9 (6) Anxiety ICD Code: F41.9 Assessment and Plan In summary, this is a 76 yo female with end stage COPD, oxygen dependent presented to ED on 01/06 for hypoxemia. She was intubaed and initially managed by critical care. The patient has been treated for PNA, her sputum grew MRSA on 01/08 and she was started on Zyvox. The patient was extubated on 01/08, and has required high O2 by nasal canula and BiPap at times to maintain her sats. Her other medical problems include CHF and a DVT for which she is on xarelto for. 1)Acute hypoxemic respiratory failure--> improving - s/p extubation on 01/08 - goal sats 88-92%, currently has been on simple mask and intermittently requiring BiPap - due to MRSA PNA & COPD exacerbation 2) COPD exacerbation - duonebs & albuterol - solumedrol 40 mg IV BID - currently oxygen dependent - pulm is following 3)Congestive heart failure - cont home metop tartrate 50 mg BID, furosemide 20 mg daily, spironolactone 12.5 mg dialy 4)MRSA pneumonia - currently on zyvox 600 mg PO (01/08- ) - blood cultures negative to date - sputum 01/06 MRSA, sensitive to zyvox - abx hx: doxy 01/06-01/11, aztreonam 01/06-01/11 5)History of DVTs - continue xarelto 6)Peripheral neuropathy - cont home gabapentin DVT prophy: on xarelto GI prophy: protonix while on steroids Discharge Planning D/C pending clinical improvement Once she is no longer requiring BiPap she can be moved to a regular medical floor. CM assisting with placement, insurance denied select, may go back to her correction when no longer requiring on rebreather. Taylor Armando MD Jan 12, 2017 09:00
[2017-01-12] MEDS: DOCUSATE SODIUM 50 MG/SENNA 8.6 MG TAB PO SCH ×2 (09:20→23:02)
[2017-01-12] MEDS: FERROUS SULFATE 325 MG (65 MG ELEMENTAL IRON) TAB PO SCH ×3 (09:20→17:38)
[2017-01-12] MEDS: GABAPENTIN 300 MG CAP PO SCH ×3 (09:20→17:38)
[2017-01-12] MEDS: CYCLOBENZAPRINE HCL 10 MG TAB PO SCH ×3 (09:21→17:38)
[2017-01-12] MEDS: LACTOBACILLUS ACIDOPHILUS TAB PO SCH ×2 (09:21→23:03)
[2017-01-12] MEDS: amLODIPine BESYLATE 5 MG TAB PO SCH (09:21)
[2017-01-12] MEDS: guaiFENesin E.R. 600 MG TAB PO SCH ×2 (09:21→23:03)
[2017-01-12] MEDS: LINEZOLID 600 MG TAB PO SCH ×2 (09:22→23:03)
[2017-01-12] MEDS: RIVAROXABAN 20 MG TAB PO SCH (09:22)
[2017-01-12] MEDS: SODIUM CHLORIDE 0.9% FLUSH 10 ML FLUSH SCH ×2 (09:22→23:03)
[2017-01-12] MEDS: methylPREDNISolone SOD SUCC 40 MG/1 ML VIAL IV PUSH SCH ×2 (09:22→23:02)
[2017-01-12] MEDS: ARTIFICIAL TEARS OPTH SOLN 15 ML BTL EACH EYE SCH ×3 (09:22→17:38)
[2017-01-12] MEDS: METOPROLOL TARTRATE 25 MG TAB PO SCH ×2 (09:22→23:03)
[2017-01-12] MEDS: FUROSEMIDE 20 MG TAB PO SCH (09:22)
--- NOTE | 2017-01-12 19:41 | HHI.PR ---
Subjective Remarks 76 YOWF with Severe Endstage COPD, RF Extubated 01/07 Feels weak No fever no cough or sp On 5LNC, desaturates has been refusing CPAP Objective Vital Signs Vital Signs Date Time Temp Pulse Resp B/P Pulse Ox O2 Delivery O2 Flow Rate FiO2 01/12/17 18:00 74 01/12/17 16:50 90 01/12/17 16:00 99.0 59 41 136/74 93 01/12/17 16:00 59 01/12/17 14:00 67 01/12/17 12:00 99.4 54 27 142/71 92 01/12/17 12:00 54 01/12/17 11:40 95 Nasal Cannula 5.00 01/12/17 10:00 78 01/12/17 08:00 97.8 63 29 164/80 92 01/12/17 08:00 63 01/12/17 06:00 64 01/12/17 04:00 56 01/12/17 04:00 97.6 56 21 159/76 99 01/12/17 02:00 59 01/12/17 00:00 98.0 56 17 138/72 89 01/12/17 00:00 56 01/11/17 22:00 69 01/11/17 21:27 89 Simple Mask 10.00 01/11/17 20:00 88 01/11/17 20:00 98.6 88 47 137/66 92 I/O 01/11/17 01/11/17 01/11/17 01/12/17 01/12/17 01/12/17 06:59 14:59 22:59 06:59 14:59 22:59 Intake Total 350 ml 720 ml 0 ml 0 ml 1000 ml Output Total 325 ml 600 ml 425 ml 450 ml 1200 ml Balance 25 ml 120 ml -425 ml -450 ml -200 ml Intake Oral 240 ml 720 ml 0 ml 0 ml 1000 ml IV Total 110 ml 0 ml 0 ml Output Urine Total 325 ml 600 ml 425 ml 450 ml 1200 ml # Bowel Movements 0 0 2 0 0 Result Diagram: 01/12/1752501/12/17525 Objective Remarks GENERAL: Elderly wf, weak sob SKIN: Warm and dry. HEAD: Normocephalic. EYES: No scleral icterus. No injection or drainage. NECK: Supple, trachea midline. No JVD or lymphadenopathy. CARDIOVASCULAR: Regular rate and rhythm without murmurs, gallops, or rubs. RESPIRATORY: Breath sounds equal bilaterally. No accessory muscle use. GASTROINTESTINAL: Abdomen soft, non-tender, nondistended. MUSCULOSKELETAL: No cyanosis, or edema. BACK: Nontender without obvious deformity. No CVA tenderness. A/P Assessment and Plan Rf, s/p extubation 01/07 Severe COPD Anxiety basal infilterates Plan; Aerosol nebs IV Solumedrol cont Abx Supplement 02 CPAP at night and prn, pt agrees to try it Encourage Arvind Garcia MD Jan 12, 2017 19:41
[2017-01-12] MEDS: FLUTICASONE 100 MCG/VILANTEROL 25 MCG INHALER INH SCH (23:03)
[2017-01-13] VITALS (16 sets, daily range): BP systolic 119–159; BP diastolic 68–79; PULSE 50–67; RESP 23–39; TEMP 98–99; O2SAT 81–96
[2017-01-13] MEDS: PANTOPRAZOLE SODIUM 40 MG VIAL IV PUSH SCH (00:49)
[2017-01-13] MEDS: CHLORHEXIDINE GLUCONATE 2 % 1 PACK (2 CLOTHS) TOP SCH (00:49)
[2017-01-13] MEDS: ALPRAZolam 0.25 MG TAB PO PRN ×2 (01:01→22:41)
[2017-01-13] MEDS: MORPHINE SULFATE 4 MG/ML INJ IV PUSH PRN ×2 (01:20→22:42)
--- NOTE | 2017-01-13 08:04 | HHI.PR ---
Subjective Remarks Patient seen and examined this am. Overnight patient placed on CPAP, was on it for 2 min and became very anxious and wanted it off. She states it made her feel like she couldn't breath. She was then placed on non rebreather. When I saw and examined the patient she was nasal canula 6L saturating at 93%, when I woke her up and she started talking, she quickly Objective Vital Signs Date Time Temp Pulse Resp B/P Pulse Ox O2 Delivery O2 Flow Rate FiO2 01/13/17 06:00 56 01/13/17 04:00 98.0 62 39 143/68 90 01/13/17 04:00 62 01/13/17 02:00 52 01/13/17 00:30 91 50 01/13/17 00:00 98.4 61 32 142/79 96 01/13/17 00:00 61 01/12/17 22:00 71 01/12/17 20:40 92 Nasal Cannula 5.00 01/12/17 20:00 98.7 74 38 129/73 90 01/12/17 20:00 74 01/12/17 18:00 74 01/12/17 16:50 90 01/12/17 16:00 99.0 59 41 136/74 93 01/12/17 16:00 59 01/12/17 14:00 67 01/12/17 12:00 99.4 54 27 142/71 92 01/12/17 12:00 54 01/12/17 11:40 95 Nasal Cannula 5.00 01/12/17 10:00 78 I/O 01/12/17 01/12/17 01/12/17 01/13/17 01/13/17 01/13/17 07:00 15:00 23:00 07:00 15:00 23:00 Intake Total 0 ml 1000 ml 13 ml 210 ml Output Total 450 ml 1200 ml 850 ml 250 ml Balance -450 ml -200 ml -837 ml -40 ml Intake Oral 0 ml 1000 ml 200 ml IV Total 0 ml 13 ml 10 ml Output Urine Total 450 ml 1200 ml 850 ml 250 ml # Bowel Movements 0 0 Result Diagram: 01/12/17 0526 01/12/17 0526 Imaging Last Impressions Chest X-Ray 01/10/17 0000 Signed Impressions: Service Date/Time: Saturday, January 10, 2017 07:56 - CONCLUSION: Bibasilar opacity possibly technical versus consolidation. Anuradha Anthony MD Objective Remarks GENERAL: laying in bed, resting comfortably, nad SKIN: Warm and dry. HEAD: Normocephalic. EYES: No scleral icterus. No injection or drainage. NECK: Supple, trachea midline. No JVD or lymphadenopathy. CARDIOVASCULAR: Regular rate and rhythm without murmurs, gallops, or rubs. RESPIRATORY: Breath sounds equal bilaterally. breathing through pursed lips, no wheezing appreciated on exam, no rales or crackles. Nasal canula on. GASTROINTESTINAL: Abdomen soft, non-tender, nondistended. MUSCULOSKELETAL: No cyanosis, or edema. BACK: Nontender without obvious deformity. No CVA tenderness. A/P Problem List: (1) Fibromyalgia ICD Code: M79.7 (2) DVT of lower extremity, bilateral ICD Code: I82.403 (3) COPD exacerbation ICD Code: J44.1 (4) Acute respiratory failure with hypoxia ICD Code: J96.01 (5) CHF (congestive heart failure) ICD Code: I50.9 (6) Anxiety ICD Code: F41.9 Assessment and Plan In summary, this is a 76 yo female with end stage COPD, oxygen dependent presented to ED on 01/06 for hypoxemia. She was intubaed and initially managed by critical care. The patient has been treated for PNA, her sputum grew MRSA on 01/08 and she was started on Zyvox. The patient was extubated on 01/08, and has required high O2 by nasal canula and BiPap at times to maintain her sats. Her other medical problems include CHF and a DVT for which she is on xarelto for. Currently the patient remains in the ICU because she requires CPAP and night (although she refuses this) and non rebreather. Her respiratory status is unchanged but she cannot go back to her SNF while on the simple mask. I have consulted palliative care to assist with establishing goals of care in this patient. Currently she is full code and her respiratory status is not improving. 1)Acute hypoxemic respiratory failure--> improving - s/p extubation on 01/08 - goal sats 88-92%, currently has been on simple mask and intermittently requiring BiPap - due to MRSA PNA & COPD exacerbation 2) COPD exacerbation - duonebs & albuterol - solumedrol 40 mg IV BID - currently oxygen dependent - pulm is following Dr. Cummings 3)Congestive heart failure - cont home metop tartrate 50 mg BID, furosemide 20 mg daily, spironolactone 12.5 mg dialy 4)MRSA pneumonia - currently on zyvox 600 mg PO (01/08- ) - blood cultures negative to date - sputum 01/06 MRSA, sensitive to zyvox - abx hx: doxy 01/06-01/11, aztreonam 01/06-01/11 5)History of DVTs - continue xarelto 6)Peripheral neuropathy - cont home gabapentin DVT prophy: on xarelto GI prophy: protonix while on steroids Discharge Planning D/C pending clinical improvement Once she is no longer requiring BiPap or nonrebreather she can be moved to a regular medical floor. CM assisting with placement, insurance pending placement [facility], may go back to her longterm when no longer requiring on rebreather. Taylor Armando MD Jan 13, 2017 08:04
[2017-01-13] MEDS: methylPREDNISolone SOD SUCC 40 MG/1 ML VIAL IV PUSH SCH ×2 (08:48→20:39)
[2017-01-13] MEDS: FUROSEMIDE 20 MG TAB PO SCH (08:49)
[2017-01-13] MEDS: guaiFENesin E.R. 600 MG TAB PO SCH ×2 (08:49→20:38)
[2017-01-13] MEDS: RIVAROXABAN 20 MG TAB PO SCH (08:49)
[2017-01-13] MEDS: FERROUS SULFATE 325 MG (65 MG ELEMENTAL IRON) TAB PO SCH ×3 (08:49→17:04)
[2017-01-13] MEDS: LACTOBACILLUS ACIDOPHILUS TAB PO SCH ×2 (08:49→20:38)
[2017-01-13] MEDS: GABAPENTIN 300 MG CAP PO SCH ×3 (08:49→17:04)
[2017-01-13] MEDS: DOCUSATE SODIUM 50 MG/SENNA 8.6 MG TAB PO SCH ×2 (08:49→20:39)
[2017-01-13] MEDS: LINEZOLID 600 MG TAB PO SCH ×2 (08:49→20:38)
[2017-01-13] MEDS: SPIRONOLACTONE 25 MG TAB PO SCH (08:49)
[2017-01-13] MEDS: ARTIFICIAL TEARS OPTH SOLN 15 ML BTL EACH EYE SCH ×3 (08:50→17:05)
[2017-01-13] MEDS: amLODIPine BESYLATE 5 MG TAB PO SCH (08:50)
[2017-01-13] MEDS: CYCLOBENZAPRINE HCL 10 MG TAB PO SCH ×3 (08:50→17:04)
[2017-01-13] MEDS: METOPROLOL TARTRATE 25 MG TAB PO SCH ×2 (08:50→20:38)
[2017-01-13] MEDS: SODIUM CHLORIDE 0.9% FLUSH 10 ML FLUSH SCH ×2 (08:50→20:39)
[2017-01-13] MEDS: RESP: ALBUTEROL 2.5 MG/IPRATROPIUM 0.5 MG NEB (SCH) NEB ×4 (09:22→20:42)
--- NOTE | 2017-01-13 11:26 | PD.CONS ---
Consult Service Palliative Care . Consult Requested By Dr. Armando . Primary Care Physician Fernanda Fox MD . Reason for Consultation a. To assist with evaluation and management of symptoms including: shortness of breath, confusion, debility b. To assist medical decision maker(s) with: better understanding of current medical conditions; weighing benefits/burdens of medical treatment options; making medical treatment decisions. . HPI History of Present Illness Ms. Diaz is a 69-year-old female presented to [facility] ED from [facility] on 01/05/2017 for evaluation of hypoxia. Per report, the patient was found lethargic and somewhat unresponsive with an oxygen saturation of 65%; the patient was given albuterol at the [facility] with no improvement and 911 was called. Patient was currently being treated for UTI. Patient was placed on a nonrebreather en route, oxygen saturation improved but remain low. Ms. 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 The patient has had 5 hospitalizations since 09/11/2016 with COPD exacerbations and respiratory failure requiring intubation. Additional diagnostic findings while in the ED include: * WBC: 11.4, hemoglobin 10.5, hematocrit 33.3, platelets 232, neutrophils 78.7% * Sodium: 135, potassium 4.6, chloride 87, carbon dioxide >45.0, glucose 100, calcium 10.1, magnesium 2.3 * BUN: 30, creatinine 0.91, GFR 60 * Total bilirubin: 0.4, AST 17, ALT 23, alkaline phosphatase 36 creatine kinase : 24 on in: 0.02 * BNP: 217 * Total protein: 6.6, albumin 2.9 * PT: 11.4, INR 1.0, APTT 32.9 * UA negative, however EMS reported patient currently being treated for UTI. * Chest x-ray showing poor lung volumes and bilateral pleural effusions. Upon arrival to the ED, the patient oxygen saturations remained in the low 80s on a nonrebreather. Patient was placed on BiPAP, oxygen saturations increased to the 90s. However, she remained lethargic and somewhat unresponsive and was subsequently intubated and placed on mechanical ventilation, FiO2 100%. Patient was admitted to the intensive care for further evaluation and medical management of acute respiratory failure with hypoxia and hypercapnia. Dr. Cummings was consulted to assist with pulmonary management. Patient remains on mechanical ventilator. Recommendations to continue IV Solu-Medrol and empiric antibiotics. Patient was extubated on 01/07/2017; requiring high oxygen concentration to maintain saturations >88%. Patient is intermittently requiring BiPAP. Sputum culture + MRSA; started on Zyvox PO Follow-up chest x-ray on 01/10/2017 showing bibasilar opacity possibly technical versus consolidation. Patient requiring intermittent CPAP and nonrebreather, although she was refusing this last night. Patient can not go back to the SNF while on the simple mask. She remains in FULL CODE; her respiratory status is not improving. Palliative Care was consulted to assist with symptom management and to discuss with the family the benefits and burdens of her current illnesses and the options regarding future care. Palliative care is familiar with this patient who is now hospitalized for the 6 time in the past 4 months. The patient designated her son, Ga Diaz, as her health care surrogate decision maker during her last hospitalization. At that time her medical treatment goals were quite aggressive. Palliative care met with Ms. Diaz today to discuss her clinical condition and the associated acute decline; we discussed aggressive versus comfort focus goals. We discussed the process of cardiopulmonary resuscitation at length; patient again verbalizing aggressive goals stating "I want all that" and "I just love those kids." Patient's nurse (Millie) was present during part of these discussions, also present May PARIS. Patient acknowledges intermittent confusion, stating she recently found herself having a conversation with her mother who has been for many years. Because the patient did not show complete insight and judgment related to her medical conditions, Palliative care also spoke to the son/HCS (Ga). Ga verbalizes understanding that his mother has an end-stage condition, but states the entire family wants everything done medically to keep his mother going. Palliative care does not anticipate any changes in medical treatment goals in the near future, will follow as needed. . Function/Cognitive Trajectory Patient's past medical history is significant for HTN, previous PE and DVT, CHF , COPD-oxygen dependent, history of goiter s/p radiation therapy with subsequent hypothyroidism, dyslipidemia, fibromyalgia, arthritis, cholelithiasis , diverticulosis, RLS, sciatica and iron deficiency anemia. She has been oxygen dependent for many year but requirements recently increased to 4 L via nasal cannula. Reporting increased weakness, poor nutritional intake, fatigue. She has been hospitalized 6 times since 09/10/2016 with COPD exacerbations and respiratory failure requiring intubation. Patient has had an acute change in her disease trajectory over the past 6 months as evidenced by multiple hospitalizations, weight loss, progressively worsening dyspnea with increased oxygen requirements, increased weakness/fatigue. Patient reports progressively increased weakness, requiring increased assistance with all ADLs. She states she requires 2 person assistance to ambulate short distances. . Review of Systems ROS Limitations: Altered Mental Status, Poor Historian Constitutional: COMPLAINS OF: Fatigue, Change in appetite (decreased), Generalized weakness Ears, nose, mouth, throat: DENIES: Epistaxis Respiratory: COMPLAINS OF: Cough, Sputum production, Shortness of breath Cardiovascular: COMPLAINS OF: Dyspnea on Exertion, Lower Extremity Edema ( intermittent, now resolved) Gastrointestinal: DENIES: Abdominal pain Hematologic/Lymphatics: COMPLAINS OF: Bruising Neurologic: COMPLAINS OF: Abnormal gait, Localized weakness, Poor Balance Psychiatric: COMPLAINS OF: Confusion Past Family Social History Coded Allergies: Azithromycin (Verified Allergy, Severe, STOMACH CRAMPS, 01/05/17) Penicillin (Verified Allergy, Severe, 01/05/17) *MDRO Multi-Drug Resistant Organism (Verified Adverse Reaction, Unknown, ) MRSA PCR + 01/05/17 MRSA (sputum) 01/06/17 Past Medical History History of goiter s/p radiation therapy with subsequent hypothyroidism Prior respiratory failure with intubation Hypertension History of PE COPD-oxygen dependent CHF Polycystic kidney disease DVT -03/2013 Dyslipidemia Fibromyalgia Arthritis Cholelithiasis Diverticulosis RLS Sciatica Iron deficiency anemia . Past Surgical History Tonsillectomy Adenoidectomy Cataract surgery BTL . Reported Medications Milk of Magnesia Liq (Magnesium Hydroxide) 400 Mg/5 Ml Susp 30 Ml PO DAILY PRN Albuterol Neb (Albuterol Sulfate) 2.5 Mg/3 Ml Neb 2.5 Mg NEB Q2HR NEB PRN While awake Ferrous Sulfate DR (Ferrous Sulfate) 325 Mg Tabdr 325 Mg PO TIDAC Eq Mucus ER (Guaifenesin) 600 Mg Tab 600 Mg PO Q12HR Diff-Stat (Probiotic Product) 1 Cap Cap 1 Cap PO BID Miralax Powder (Polyethylene Glycol 3350 Powder) 1 Pow Pow 17 Gm PO HS Breo Ellipta Inh (Fluticasone/Vilanterol) 100-25 Mcg/Act Inh 1 Puff INH HS Use daily at the same time. Spironolactone 25 Mg Tab 12.5 Mg PO DAILY Flexeril (Cyclobenzaprine HCl) 5 Mg Tab 5 Mg PO TID Gabapentin 600 Mg Tab 600 Mg PO TID . Current Medications Medications (Trade) Dose Ordered Sig/Lili Route Start Time Stop Time Status Last Admin (NS Flush) 2 ml UNSCH PRN .XX 01/05/17 22:00 (NS Flush) 2 ml BID .XX 01/06/17 09:00 01/13/17 08:50 (Tylenol) 650 mg Q6H PRN PO 01/05/17 22:00 01/08/17 09:05 (Tears Naturale Opth Soln) 1 drop TID EACH EYE 01/06/17 09:00 01/13/17 08:50 (Zofran Inj) 4 mg Q6H PRN IV 01/05/17 22:00 01/13/17 01:19 Miscellaneous Information 1 Q361D XX 01/05/17 22:00 01/05/17 22:00 (Chlorhexidine 2% Cloth) Taper DAILY@04 TOP 01/06/17 04:00 01/02/18 03:59 01/13/17 00:49 (Chlorhexidine 2% Cloth) 3 pack UNSCH PRN TOP 01/05/17 22:00 (Lynn-Colace) 1 tab BID PO 01/06/17 09:00 01/13/17 08:49 (Milk Of Magnesia Liq) 30 ml Q12H PRN PO 01/05/17 22:00 01/09/17 14:40 (Senokot) 17.2 mg Q12H PRN PO 01/05/17 22:00 (Dulcolax Supp) 10 mg DAILY PRN RECTAL 01/05/17 22:00 (Lactulose Liq) 30 ml DAILY PRN PO 01/05/17 22:00 01/10/17 10:40 (Xanax) 0.25 mg Q8H PRN PO 01/05/17 22:15 01/13/17 01:01 (Norvasc) 5 mg DAILY PO 01/06/17 09:00 01/13/17 08:50 (Flexeril) 5 mg TID PO 01/06/17 09:00 01/13/17 08:50 (Breo Ellipta 100-25 Inh) 1 puff HS INH 01/06/17 21:00 01/12/17 23:03 (Lasix) 20 mg DAILY PO 01/06/17 09:00 01/13/17 08:49 (Neurontin) 600 mg TID PO 01/06/17 09:00 01/13/17 08:49 (Mucinex Er) 600 mg Q12HR PO 01/06/17 09:00 01/13/17 08:49 (Xarelto) 20 mg DAILY PO 01/06/17 09:00 01/13/17 08:49 (Aldactone) 12.5 mg DAILY PO 01/06/17 09:00 01/13/17 08:49 (Ferrous Sulfate) 325 mg TIDAC PO 01/06/17 08:00 01/13/17 08:49 (Lactinex) 1 tab BID PO 01/06/17 09:00 01/13/17 08:49 (Protonix Inj) 40 mg Q24H IV PUSH 01/06/17 01:00 01/13/17 00:49 (Zyvox) 600 mg Q12HR PO 01/08/17 15:00 01/13/17 08:49 Morphine Sulfate 2 mg 2 mg Q4H PRN IV PUSH 01/08/17 15:45 01/13/17 01:20 Potassium Chloride 100 ml @ 50 mls/hr Q2H PRN IV 01/09/17 16:00 (KCl 20 Meq Premix Inj) 100 ml @ 50 mls/hr Q2H PRN IV 01/09/17 16:00 Potassium Bicarb/ Potassium Chloride 50 meq 50 meq UNSCH PRN PO 01/09/17 16:00 Potassium Chloride 100 ml @ 25 mls/hr UNSCH PRN IV 01/09/17 16:00 Potassium Chloride 100 ml @ 50 mls/hr Q2H PRN IV 01/09/17 16:00 (Magnesium Sulfate Inj/NS Inj) 100 ml @ 50 mls/hr UNSCH PRN IV 01/09/17 16:00 Magnesium Oxide 800 mg 800 mg UNSCH PRN PO 7/21/17 16:00 (Magnesium Sulfate Inj/NS Inj) 100 ml @ 50 mls/hr UNSCH PRN IV 01/09/17 16:00 Potassium Phosphate 2000 mg 2,000 mg Q4H PRN PO 01/09/17 16:00 01/10/17 21:11 (Sodium Phosphate Inj/NS 250 ml Inj) 250 ml @ 42 mls/hr UNSCH PRN IV 01/09/17 16:00 Potassium Phosphate 2000 mg 2,000 mg UNSCH PRN PO/TUBE 01/09/17 16:00 (Potassium Phosphate Inj/NS 250 ml Inj) 260 ml @ 42 mls/hr UNSCH PRN IV 01/09/17 16:00 (Lopressor) 25 mg Q12HR PO 01/10/17 21:00 01/13/17 08:50 (SoluMEDROL INJ) 40 mg BID IV PUSH 01/10/17 21:00 01/13/17 08:48 (D50w (Vial) Inj) 50 ml UNSCH PRN IV 01/11/17 10:30 (Glucagon Inj) 1 mg UNSCH PRN OTHER 01/11/17 10:30 Family History Patient's mother from pancreatic cancer. Her father in an MVA when the patient was 4 years old. Patient's sister also suffers from COPD, heart disease and hypertension. . Substance Use Tobacco: [id number] history, quit in 2013 Alcohol: Patient reported were EtOH consumption, occasional wine. Prescription med abuse: None known Illicits: None known . Psychosocial History Patient is originally from [place], [place]. Her father in a MVA and when the patient was 4 years old. She has one sister (Madhavi) who lives in [place], [place]. The patient states they are very close. The patient was to her first for 10 years, and her second for approximately 44 years. She is . The patient had 8 children, but 2 are now . (6 living children: 4 daughters and 2 sons) She moved to [place] approximately 17 years ago and is living with her son (Ga). 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 . Spiritual/Cultural Factors Bahai cherise . Health Care Surrogate: Copy in medical record Date completed: 12/17/2016 . Health Care Surrogate(s): Patient's son (Ga Diaz) is designated as the primary health care surrogate decision maker. The patient has designated her daughter (Mattie Diaz) as the alternate health care surrogate decision maker. . Documented care wishes: No documented care wishes are available. . Today's verbally stated goals: Patient has consistently verbalized aggressive goals during recent hospitalizations. She again verbalizes aggressive goals stating "I want all that " and "I just love those kids." . Family/friends goals: Patient's son and health care surrogate (Ga) verbalizes understanding that his mother has an end-stage condition, but states the entire family wants to exhaust all medical interventions and attempt to keep his mother "going". . Ethical and Legal Issues No known ethical or legal issues impacting care at this time. . Physical Exam Vital Signs Date Time Temp Pulse Resp B/P Pulse Ox O2 Delivery O2 Flow Rate FiO2 01/13/17 09:22 89 Nasal Cannula 5.00 01/13/17 08:00 99.0 56 23 159/72 93 01/13/17 08:00 56 01/13/17 06:00 56 01/13/17 04:00 98.0 62 39 143/68 90 01/13/17 04:00 62 01/13/17 02:00 52 01/13/17 00:30 91 50 01/13/17 00:00 98.4 61 32 142/79 96 01/13/17 00:00 61 01/12/17 22:00 71 01/12/17 20:40 92 Nasal Cannula 5.00 01/12/17 20:00 98.7 74 38 129/73 90 01/12/17 20:00 74 01/12/17 18:00 74 01/12/17 16:50 90 01/12/17 16:00 99.0 59 41 136/74 93 01/12/17 16:00 59 01/12/17 14:00 67 01/12/17 12:00 99.4 54 27 142/71 92 01/12/17 12:00 54 01/12/17 11:40 95 Nasal Cannula 5.00 . 01/12/17 01/13/17 19:00 07:00 Intake Total 1000 ml 223 ml Output Total 1200 ml 1100 ml Balance -200 ml -877 ml Intake Oral 1000 ml 200 ml IV Total 23 ml Output Urine Total 1200 ml 1100 ml # Bowel Movements 0 . Exam CONSTITUTIONAL/GENERAL: This is an adequately nourished patient, experiencing moderate shortness of breath with conversation TUBES/LINES/DRAINS: PIV 1, Fuentes catheter, nasal cannula SKIN: Ashen color. Ecchymoses and edema noted in upper extremities. HEAD: Atraumatic. Normocephalic. EYES: No scleral icterus. No injection or drainage. Fundi not examined. ENT: Hearing grossly normal. Nose without bleeding or purulent drainage. NECK: Trachea midline. Supple, nontender. No palpable thyroid enlargement or nodularity. CARDIOVASCULAR: Irregular rate and rhythm without murmurs, gallops, or rubs. No JVD. Peripheral pulses symmetric. RESPIRATORY/CHEST: Symmetric, unlabored respirations. Breath sounds diminished bilaterally. No wheezes, rales, or rhonchi. GASTROINTESTINAL: Abdomen soft, non-tender, nondistended. No guarding. Bowel sounds present. GENITOURINARY: Without palpable bladder distension. Fuentes catheter in place. MUSCULOSKELETAL: Extremities without clubbing or cyanosis. Trace edema and bilateral lower extremities LYMPHATICS: No palpable cervical or supraclavicular adenopathy. NEUROLOGICAL: Awake. Able to answer questions and follow commands. Lethargic, intermittent confusion. PSYCHIATRIC: No obvious anxiety/depression. no apparent hallucinations or other psychotic thought process. . Diagnostic Tests Laboratory Laboratory Tests Test 01/11/17 01/12/17 04:03 05:26 White Blood Count 8.6 TH/MM3 9.0 TH/MM3 (4.0-11.0) (4.0-11.0) Red Blood Count 3.20 MIL/MM3 3.15 MIL/MM3 (4.00-5.30) (4.00-5.30) Hemoglobin 10.3 GM/DL 10.1 GM/DL (11.6-15.3) (11.6-15.3) Hematocrit 31.4 % 30.7 % (35.0-46.0) (35.0-46.0) Mean Corpuscular Volume 98.1 FL 97.2 FL (80.0-100.0) (80.0-100.0) Mean Corpuscular Hemoglobin 32.0 PG 32.0 PG (27.0-34.0) (27.0-34.0) Mean Corpuscular Hemoglobin 32.6 % 32.9 % Concent (32.0-36.0) (32.0-36.0) Red Cell Distribution Width 16.6 % 16.3 % (11.6-17.2) (11.6-17.2) Platelet Count 222 TH/MM3 224 TH/MM3 (150-450) (150-450) Mean Platelet Volume 8.0 FL 7.9 FL (7.0-11.0) (7.0-11.0) Neutrophils (%) (Auto) 89.8 % 82.3 % (16.0-70.0) (16.0-70.0) Lymphocytes (%) (Auto) 8.3 % 14.8 % (9.0-44.0) (9.0-44.0) Monocytes (%) (Auto) 1.7 % (0.0-8.0) 2.6 % (0.0-8.0) Eosinophils (%) (Auto) 0.0 % (0.0-4.0) 0.0 % (0.0-4.0) Basophils (%) (Auto) 0.2 % (0.0-2.0) 0.3 % (0.0-2.0) Neutrophils # (Auto) 7.8 TH/MM3 7.4 TH/MM3 (1.8-7.7) (1.8-7.7) Lymphocytes # (Auto) 0.7 TH/MM3 1.3 TH/MM3 (1.0-4.8) (1.0-4.8) Monocytes # (Auto) 0.1 TH/MM3 0.2 TH/MM3 (0-0.9) (0-0.9) Eosinophils # (Auto) 0.0 TH/MM3 0.0 TH/MM3 (0-0.4) (0-0.4) Basophils # (Auto) 0.0 TH/MM3 0.0 TH/MM3 (0-0.2) (0-0.2) CBC Comment DIFF FINAL DIFF FINAL Differential Comment Sodium Level 141 MEQ/L 140 MEQ/L (136-145) (136-145) Potassium Level 4.9 MEQ/L 4.6 MEQ/L (3.5-5.1) (3.5-5.1) Chloride Level 103 MEQ/L 102 MEQ/L (98-107) (98-107) Carbon Dioxide Level 30.7 MEQ/L 33.8 MEQ/L (21.0-32.0) (21.0-32.0) Anion Gap 7 MEQ/L (5-15) 4 MEQ/L (5-15) Blood Urea Nitrogen 28 MG/DL (7-18) 25 MG/DL (7-18) Creatinine 0.76 MG/DL 0.68 MG/DL (0.50-1.00) (0.50-1.00) Estimat Glomerular Filtration 74 ML/MIN (>89) 84 ML/MIN (>89) Rate Random Glucose 134 MG/DL 118 MG/DL (74-106) (74-106) Calcium Level 8.4 MG/DL 8.8 MG/DL (8.5-10.1) (8.5-10.1) Phosphorus Level 3.0 MG/DL (2.5-4.9) . Result Diagram: 01/12/17 0526 01/12/17 0526 Procedures 01/05/2017: Intubation 01/05/2017: NGT 01/05/2017: Extubation Patient/Family Conference Present at Family Conference: Met with patient at bedside; spoke to patient's son via telephone Family Conference Location: Bedside, Telephone Issues Discussed: * Palliative care role, purpose, approach * Additional medical, psychosocial, and spiritual history * Patients general health, functional status, and cognitive changes in the months leading up to the current hospitalization * Patient/family understanding of the current medical problems * Patient/family understanding of prognosis * Patients goals of care as best understood from advance directives and/or conversations and/or values * Current medical treatment options and benefits/burdens of those options * Likely scenarios comparing ongoing aggressive care with a transition to comfort measures only * Questions answered to the best of my ability * Palliative care contact information provided Assessment and Plan Disease Oriented Problem List: (1) Acute respiratory failure with hypoxia (2) CHF (congestive heart failure) Comment: = Metoprolol = Lasix = Spironolactone . (3) Pleural effusion (4) COPD exacerbation (5) Hypertension Comment: = On Norvasc = On metoprolol (6) History of DVT (deep vein thrombosis) Comment: = Xarelto . (7) Peripheral neuropathy Comment: = Gabapentin . Symptom Scale: (1) Shortness of breath (2) Debility, unspecified (3) Confusion Pertinent Non-Medical Issues Psychosocial: Patient is originally from [place], [place]. Her father in a MVA and when the patient was 4 years old. She has one sister (Madhavi) who lives in [place], [place]. The patient states they are very close. The patient was to her first for 10 years, and her second for approximately 44 years. She is . The patient had 8 children, but 2 are now . (6 living children: 4 daughters and 2 sons) She moved to [place] approximately 17 years ago and is living with her son (Ga). Patient states she worked in a [employer] plant when she was younger. Spiritual: Bahai cherise Legal: Patient's son (Ga Diaz) is designated as the primary health care surrogate decision maker. The patient has designated her daughter (Mattie Diaz ) as the alternate health care surrogate decision maker. Ethical issues impacting care: No known ethical issues impacting care at this time. . Important Contacts Ga Diaz, son: [phone] Mattie Diaz, daughter: [phone] . Prognosis Patient is a 76-year-old female with multiple comorbid conditions. She has been hospitalized 6 times since 09/10/2016 with COPD exacerbations and respiratory failure requiring intubation. She was most recently discharged on 12/30/2016 and returned to the ED approximately 6 days later; she was again admitted with hypoxic respiratory failure requiring intubation. Prognosis is poor. . Code Status: Full Code Plan * FULL CODE * Decision-making: Patient son (Ga Diaz) is designated as the health care surrogate decision maker. The patient has designated her daughter (Mattie Diaz ) as the alternate health care surrogate decision maker. * Patient having intermittent confusion; it is not clear if she has good insight and judgment related to her medical conditions. Recommendations for dual decision making with patient's son and health care surrogate (Ga Diaz). * Goals: AGGRESSIVE GOALS * Palliative Care was consulted to assist with symptom management and to discuss with the family the benefits and burdens of her current illnesses and the options regarding future care. Palliative care is familiar with this patient who is now hospitalized for the 6 time in the past 4 months. At that time her medical treatment goals were quite aggressive. Palliative care met with Ms. Diaz today to discuss her clinical condition and the associated acute decline; we discussed aggressive versus comfort focus goals. We discussed the process of cardiopulmonary resuscitation in detail; patient again verbalizing aggressive goals stating "I want all that" and "I just love those kids." Patient's nurse (Millie) was present during part of these discussions, also present May PARIS. * Palliative care also spoke to the son/HCS (Ga). Ga verbalizes understanding that his mother has an end-stage condition, but states the entire family wants everything done medically to keep his mother going. * Palliative care does not anticipate any changes in medical treatment goals in the near future, will follow as needed. * Palliative care contact information was given to both the patient and the patient's son; palliative care offered and encourage family meeting sometime this week. * Palliative care will continue to follow this patient throughout her hospitalization to establish trust, assist with symptom management and clarification of medical treatment goals. . Thank you for the opportunity to participate in the care of Ms. Diaz. Mely Driver Jan 13, 2017 11:26
--- NOTE | 2017-01-13 19:11 | HHI.PR ---
Subjective Remarks 76 YOWF with Severe Endstage COPD, RF Extubated 01/07 Feels weak No fever no cough or sp On 5LNC, desaturates Used CPAP 5 min only Resting comfortably Objective Vital Signs Vital Signs Date Time Temp Pulse Resp B/P Pulse Ox O2 Delivery O2 Flow Rate FiO2 01/13/17 18:00 65 01/13/17 16:00 98.9 65 35 122/71 84 01/13/17 16:00 65 01/13/17 14:00 67 01/13/17 12:00 54 01/13/17 12:00 98.0 54 26 137/72 81 01/13/17 10:00 50 01/13/17 09:22 89 Nasal Cannula 5.00 01/13/17 08:00 99.0 56 23 159/72 93 01/13/17 08:00 56 01/13/17 06:00 56 01/13/17 04:00 98.0 62 39 143/68 90 01/13/17 04:00 62 01/13/17 02:00 52 01/13/17 00:30 91 50 01/13/17 00:00 98.4 61 32 142/79 96 01/13/17 00:00 61 01/12/17 22:00 71 01/12/17 20:40 92 Nasal Cannula 5.00 01/12/17 20:00 98.7 74 38 129/73 90 01/12/17 20:00 74 I/O 01/12/17 01/12/17 01/12/17 01/13/17 01/13/17 01/13/17 07:00 15:00 23:00 07:00 15:00 23:00 Intake Total 0 ml 1000 ml 13 ml 210 ml 1500 ml Output Total 450 ml 1200 ml 850 ml 250 ml 1000 ml Balance -450 ml -200 ml -837 ml -40 ml 500 ml Intake Oral 0 ml 1000 ml 200 ml 1500 ml IV Total 0 ml 13 ml 10 ml Output Urine Total 450 ml 1200 ml 850 ml 250 ml 1000 ml # Bowel Movements 0 0 0 Result Diagram: 01/12/1752501/12/17525 Objective Remarks GENERAL: Elderly wf, weak sob SKIN: Warm and dry. HEAD: Normocephalic. EYES: No scleral icterus. No injection or drainage. NECK: Supple, trachea midline. No JVD or lymphadenopathy. CARDIOVASCULAR: Regular rate and rhythm without murmurs, gallops, or rubs. RESPIRATORY: Breath sounds equal bilaterally. No accessory muscle use. GASTROINTESTINAL: Abdomen soft, non-tender, nondistended. MUSCULOSKELETAL: No cyanosis, or edema. BACK: Nontender without obvious deformity. No CVA tenderness. A/P Assessment and Plan Rf, s/p extubation 01/07 Severe COPD Anxiety basal infilterates Plan; Aerosol nebs IV Solumedrol cont Abx Supplement 02 Encourage PO Palliative care evaluating pt. Arvind Cummings MD Jan 13, 2017 19:11
[2017-01-13] MEDS: FLUTICASONE 100 MCG/VILANTEROL 25 MCG INHALER INH SCH (20:39)
[2017-01-14] VITALS (15 sets, daily range): BP systolic 106–142; BP diastolic 56–69; PULSE 44–79; RESP 15–37; TEMP 97.3–98.4; O2SAT 84–98
[2017-01-14] MEDS: ACETAMINOPHEN 325 MG TAB PO PRN (00:35)
[2017-01-14] MEDS: PANTOPRAZOLE SODIUM 40 MG VIAL IV PUSH SCH (00:35)
[2017-01-14] MEDS: MORPHINE SULFATE 4 MG/ML INJ IV PUSH PRN (03:31)
[2017-01-14] MEDS: CHLORHEXIDINE GLUCONATE 2 % 1 PACK (2 CLOTHS) TOP SCH (04:00)
[2017-01-14] MEDS: FERROUS SULFATE 325 MG (65 MG ELEMENTAL IRON) TAB PO SCH ×2 (06:55→12:31)
[2017-01-14] MEDS: RESP: ALBUTEROL 2.5 MG/IPRATROPIUM 0.5 MG NEB (SCH) NEB ×3 (07:44→15:31)
--- NOTE | 2017-01-14 07:51 | HHI.PR ---
Subjective Remarks On 4L NC satting 94%. Since she feels less shortness of breath and is not coughing. No sputum production. No fever or chills overnight. Feel short of breath however not more than usual feels she is improving. Denies nausea or vomiting. She is eating fairly well. Appetite is good. Feels comfortable to go back to [facility] Objective Vitals Vital Signs Date Time Temp Pulse Resp B/P Pulse Ox O2 Delivery O2 Flow Rate FiO2 01/14/17 07:45 94 Nasal Cannula 4.00 01/14/17 04:14 98 50 01/14/17 04:00 98.2 50 27 112/66 98 01/14/17 04:00 50 01/14/17 02:00 44 01/14/17 00:00 62 01/14/17 00:00 98.4 62 27 137/67 92 01/13/17 23:55 89 60 01/13/17 23:55 60 01/13/17 22:00 57 01/13/17 21:08 93 Nasal Cannula 5.00 01/13/17 20:00 98.6 59 38 119/68 90 01/13/17 20:00 59 01/13/17 18:00 65 01/13/17 16:00 98.9 65 35 122/71 84 01/13/17 16:00 65 01/13/17 14:00 67 01/13/17 12:00 54 01/13/17 12:00 98.0 54 26 137/72 81 01/13/17 10:00 50 01/13/17 09:22 89 Nasal Cannula 5.00 01/13/17 08:00 99.0 56 23 159/72 93 01/13/17 08:00 56 I/O 01/13/17 01/13/17 01/13/17 01/14/17 01/14/17 01/14/17 07:00 15:00 23:00 07:00 15:00 23:00 Intake Total 210 ml 1500 ml 145 ml 145 ml Output Total 250 ml 1000 ml 125 ml 125 ml Balance -40 ml 500 ml 20 ml 20 ml Intake Oral 200 ml 1500 ml 120 ml 120 ml IV Total 10 ml 25 ml 25 ml Output Urine Total 250 ml 1000 ml 125 ml 125 ml # Bowel Movements 0 Result Diagram: 01/12/1752501/12/17525 Imaging Last Impressions Chest X-Ray 01/10/17 0000 Signed Impressions: Service Date/Time: Tuesday, January 10, 2017 07:56 - CONCLUSION: Bibasilar opacity possibly technical versus consolidation. Anuradha Anthony MD Objective Remarks GENERAL: laying in bed, resting comfortably, nad NECK: Supple, trachea midline. No JVD or lymphadenopathy. CARDIOVASCULAR: Regular rate and rhythm without murmurs, gallops, or rubs. RESPIRATORY: Breath sounds equal bilaterally. breathing through pursed lips, no wheezing appreciated on exam, no rales or crackles. Nasal canula on. GASTROINTESTINAL: Abdomen soft, non-tender, nondistended. MUSCULOSKELETAL: No cyanosis, or edema. BACK: Nontender without obvious deformity. No CVA tenderness. A/P Assessment and Plan 76 yo female with end stage COPD, oxygen dependent presented to ED on 01/06 for hypoxemia. She was intubaed and initially managed by critical care. The patient has been treated for PNA, her sputum grew MRSA on 01/08 and she was started on Zyvox. The patient was extubated on 01/08, and has required high O2 by nasal canula and BiPap at times to maintain her sats. Her other medical problems include CHF and a DVT for which she is on xarelto for. Currently the patient remains in the ICU because she requires CPAP and night (although she refuses this) and non rebreather. Her respiratory status is unchanged but she cannot go back to her SNF while on the simple mask. I have consulted palliative care to assist with establishing goals of care in this patient. Currently she is full code and her respiratory status is not improving. Acute hypoxemic respiratory failure--> improving - s/p extubation on 01/08 - goal sats 88-92%, currently has been on simple mask and intermittently requiring BiPap - due to MRSA PNA & COPD exacerbation COPD exacerbation duonebs & albuterol solumedrol 40 mg IV BID currently oxygen dependent pulm is following Dr. Cummings Congestive heart failure- cont home metop tartrate 50 mg BID, furosemide 20 mg daily, spironolactone 12.5 mg dialy MRSA pneumonia currently on zyvox 600 mg PO (01/08- ) blood cultures negative to date sputum 01/06 MRSA, sensitive to zyvox abx hx: doxy 01/06-01/11, aztreonam 01/06-01/11 History of DVTs continue xarelto Peripheral neuropathy cont home gabapentin DVT prophy: on xarelto GI prophy: protonix while on steroids Discharge Planning D/C pending clinical improvement Once she is no longer requiring BiPap or nonrebreather she can be moved to a regular medical floor. CM assisting with placement, insurance pending placement [facility], may go back to her [facility] when no longer requiring on rebreather. Jaja Felix MD Jan 14, 2017 07:51
[2017-01-14] MEDS ORDERED: OXYC1TAB36 PO (07:54)
[2017-01-14] MEDS ORDERED: ALPR.25 PO (07:54)
--- NOTE | 2017-01-14 07:54 | HHI.DS ---
Discharge Summary Admission Date Jan 05, 2017 at 18:59 Discharge Date: Jan 14, 2017 Admitting Diagnosis acute respiratory failure (1) Acute respiratory failure with hypoxia and hypercapnia ICD Code: J96.01 (2) History of DVT (deep vein thrombosis) ICD Code: Z86.718 (3) COPD exacerbation ICD Code: J44.1 (4) Pleural effusion ICD Code: J90 (5) Pneumonia ICD Code: J18.9 (6) Chronic kidney disease, stage II (mild) ICD Code: N18.2 (7) Specimen positive for methicillin resistant Staphylococcus aureus (MRSA) ICD Code: A49.02 Procedures none Brief History - From Admission 76-year-old female with history of end-stage COPD on home O2 2-4 years presents for evaluation of shortness of breath and hypoxemia. Patient resides in a intermediate and was found to be drowsy and somewhat unresponsive, her O2 sat was assessed at 65%. Patient was given albuterol at the intermediate with no improvement, 911 was called and patient was brought to the emergency department. The last admission for acute respiratory failure and pneumonia was one month ago. Her other medical problems include congestive heart failure and DVT currently on Xarelto. CBC/BMP: 01/12/17 0526 01/12/17 0526 Significant Findings Laboratory Tests Test 01/12/17 05:26 Red Blood Count 3.15 MIL/MM3 (4.00-5.30) Hemoglobin 10.1 GM/DL (11.6-15.3) Hematocrit 30.7 % (35.0-46.0) Neutrophils (%) (Auto) 82.3 % (16.0-70.0) Carbon Dioxide Level 33.8 MEQ/L (21.0-32.0) Anion Gap 4 MEQ/L (5-15) Blood Urea Nitrogen 25 MG/DL (7-18) Estimat Glomerular Filtration 84 ML/MIN (>89) Rate Random Glucose 118 MG/DL (74-106) Imaging Last Impressions Chest X-Ray 01/10/17 0000 Signed Impressions: Service Date/Time: Tuesday, January 10, 2017 07:56 - CONCLUSION: Bibasilar opacity possibly technical versus consolidation. Anuradha Anthony MD PE at Discharge GENERAL: laying in bed, resting comfortably, nad NECK: Supple, trachea midline. No JVD or lymphadenopathy. CARDIOVASCULAR: Regular rate and rhythm without murmurs, gallops, or rubs. RESPIRATORY: Breath sounds equal bilaterally. breathing through pursed lips, no wheezing appreciated on exam, no rales or crackles. Nasal canula on. GASTROINTESTINAL: Abdomen soft, non-tender, nondistended. MUSCULOSKELETAL: No cyanosis, or edema. BACK: Nontender without obvious deformity. No CVA tenderness. Hospital Course 76 yo female with end stage COPD, oxygen dependent presented to ED on 01/06 for hypoxemia. She was intubaed and initially managed by critical care. The patient has been treated for PNA, her sputum grew MRSA on 01/08 and she was started on Zyvox. The patient was extubated on 01/08, and has required high O2 by nasal canula and BiPap at times to maintain her sats. Her other medical problems include CHF and a DVT for which she is on xarelto for. Currently the patient remains in the ICU because she requires CPAP and night (although she refuses this) and non rebreather. Her respiratory status is unchanged but she cannot go back to her SNF while on the simple mask. Palliative care to assist with establishing goals of care in this patient. Patient is FULL code. Respiratory status improved. Patient with MRSA in sputum, was discharged on linezolid PO antibiotic per ID recommendations. Patient was discharged in stable condition to SNF, to follow up as OP with PCP and consultants. Acute hypoxemic respiratory failure--> improving - s/p extubation on 01/08 - goal sats 88-92%, currently has been on simple mask and intermittently requiring BiPap - due to MRSA PNA & COPD exacerbation COPD exacerbation duonebs & albuterol solumedrol 40 mg IV BID currently oxygen dependent pulm is following Dr. Cummings Congestive heart failure- cont home metop tartrate 50 mg BID, furosemide 20 mg daily, spironolactone 12.5 mg dialy MRSA pneumonia currently on zyvox 600 mg PO (01/08- ) blood cultures negative to date sputum 01/06 MRSA, sensitive to zyvox abx hx: doxy 01/06-01/11, aztreonam 01/06-01/11 History of DVTs continue xarelto Peripheral neuropathy cont home gabapentin DVT prophy: on xarelto GI prophy: protonix while on steroids Discharge Planning D/C pending clinical improvement Once she is no longer requiring BiPap or nonrebreather she can be moved to a regular medical floor. CM assisted with placement, DC to SNF Pt Condition on Discharge: Stable Discharge Disposition: Discharge to SNF Discharge Time: > 30 minutes Discharge Instructions DIET: Follow Instructions for: Heart Healthy Diet Activities you can perform: Regular-No Restrictions Follow up Referrals: PCP Follow-up - 2-3 Days Pulmonology - 3-5 Days New Medications: Prednisone (21) 10 mg tab Dose Pack (Prednisone (21) 10 mg tab Dose Pack) 10 Mg Pack 10 MG PO DIRECTED Inflammation #1 Ref 0 DSPK Linezolid (Zyvox) 600 Mg Tab 600 MG PO Q12HR mrsa sputum #15 TAB Continued Medications: Albuterol Neb (Albuterol Neb) 2.5 Mg/3 Ml Neb 2.5 MG NEB Q2HR NEB While awake PRN SHORTNESS OF BREATH #60 Ref 0 NEBULE Alprazolam (Xanax) 0.25 Mg Tab 0.25 MG PO Q8H PRN ANXIETY #10 Ref 0 TAB (This prescription has been renewed) Amlodipine (Norvasc) 5 Mg Tab 5 MG PO DAILY HYPERTENSION #30 Ref 0 TAB Cyclobenzaprine (Flexeril) 5 Mg Tab 5 MG PO TID Muscle Spasm #90 Ref [address] (Ferrous Sulfate DR) 325 Mg Tabdr 325 MG PO TIDAC Fluticasone-Vilanterol Inh (Breo Ellipta Inh) 100-25 Mcg/Act Inh 1 PUFF INH HS Use daily at the same time. COPD #1 Ref 0 INHALER Furosemide (Furosemide) 20 Mg Tab 20 MG PO DAILY Blood Pressure Management #30 TAB Gabapentin (Gabapentin) 600 Mg Tab 600 MG PO TID SCIATICA #90 Ref 0 TAB Guaifenesin (Eq Mucus ER) 600 Mg Tab 600 MG PO Q12HR Ipratropium-Albuterol Neb (Duoneb) 0.5-2.5 Mg/3 Ml Neb 1 AMPULE NEB Q4HR NEB COPD Days 30 ML Magnesium Hydroxide Liq (Milk of Magnesia Liq) 400 Mg/5 Ml Susp 30 ML PO DAILY PRN INDIGESTION OR UPSET STOMACH #1 Ref 0 BOTTLE Metoprolol Tartrate (Metoprolol Tartrate) 25 Mg Tab 50 MG PO Q12HR Blood Pressure Management #60 TAB Oxycodone-Acetaminophen (Oxycodone-Acetaminophen) 10-325 mg Tab 1 TAB PO Q6H DO NOT USE THIS MEDICINE IF YOU WILL DRIVE A CAR OR USE A MACHINE, ONLY USE IT WHEN RESTING AT HOME. PRN PAIN #12 Ref 0 TAB (This prescription has been renewed) Polyethylene Glycol 3350 Powder (Miralax Powder) 1 Pow Pow 17 GM PO HS Constipation Probiotic Product (Diff-Stat) 1 Cap Cap 1 CAP PO BID GI PROPHYLAXSIS Rivaroxaban (Xarelto) 20 Mg Tab 20 MG PO DAILY ANTICOAGULATION #30 Ref 0 TAB Spironolactone (Spironolactone) 25 Mg Tab 12.5 MG PO DAILY #15 Ref 0 TAB Jaja Felix MD Jan 14, 2017 07:54
[2017-01-14] MEDS ORDERED: PRED10PA PO (07:57)
[2017-01-14] MEDS ORDERED: ZYVO600T PO (08:07)
[2017-01-14] MEDS: ARTIFICIAL TEARS OPTH SOLN 15 ML BTL EACH EYE SCH ×2 (09:22→12:32)
[2017-01-14] MEDS: SODIUM CHLORIDE 0.9% FLUSH 10 ML FLUSH SCH (09:22)
[2017-01-14] MEDS: amLODIPine BESYLATE 5 MG TAB PO SCH (09:23)
[2017-01-14] MEDS: SPIRONOLACTONE 25 MG TAB PO SCH (09:23)
[2017-01-14] MEDS: CYCLOBENZAPRINE HCL 10 MG TAB PO SCH ×2 (09:23→12:31)
[2017-01-14] MEDS: guaiFENesin E.R. 600 MG TAB PO SCH (09:23)
[2017-01-14] MEDS: GABAPENTIN 300 MG CAP PO SCH ×2 (09:23→12:31)
[2017-01-14] MEDS: LACTOBACILLUS ACIDOPHILUS TAB PO SCH (09:23)
[2017-01-14] MEDS: LINEZOLID 600 MG TAB PO SCH (09:23)
[2017-01-14] MEDS: RIVAROXABAN 20 MG TAB PO SCH (09:23)
[2017-01-14] MEDS: METOPROLOL TARTRATE 25 MG TAB PO SCH (09:23)
[2017-01-14] MEDS: methylPREDNISolone SOD SUCC 40 MG/1 ML VIAL IV PUSH SCH (09:23)
[2017-01-14] MEDS: DOCUSATE SODIUM 50 MG/SENNA 8.6 MG TAB PO SCH (09:23)
[2017-01-14] MEDS: FUROSEMIDE 20 MG TAB PO SCH (09:23)
[2017-01-14] MEDS: ALPRAZolam 0.25 MG TAB PO PRN (14:55)
== END 2017-01-14 15:50 | DRG 208 ==
LOC: NEPE 16:18 → NEDA 18:59 → HIMN 20:30
PROVIDERS: ADMIT Hospitalist; ATTEND Hospitalist
PROC: 5A1945Z Respiratory Ventilation, 24-96 Consecutive Hours (ICD-10-PCS; principal; 2017-01-05)
PROC: 5A09357 Assistance with Respiratory Ventilation, Less than 24 Consecutive Hours, Continuous Positive Airway Pressure (ICD-10-PCS; 2017-01-05)
PROC: 0BH17EZ Insertion of Endotracheal Airway into Trachea, Via Natural or Artificial Opening (ICD-10-PCS; 2017-01-05)
DX: J96.01 Acute respiratory failure with hypoxia (principal); J15.212 Pneumonia due to Methicillin resistant Staphylococcus aureus; E87.3 Alkalosis; I13.0 Hypertensive heart and chronic kidney disease with heart failure and stage 1 through stage 4 chronic kidney disease, or unspecified chronic kidney disease; J44.0 Chronic obstructive pulmonary disease with (acute) lower respiratory infection; I50.9 Heart failure, unspecified; I82.4Z3 Acute embolism and thrombosis of unspecified deep veins of distal lower extremity, bilateral; N39.0 Urinary tract infection, site not specified; J44.1 Chronic obstructive pulmonary disease with (acute) exacerbation; M19.90 Unspecified osteoarthritis, unspecified site; G62.9 Polyneuropathy, unspecified; E03.9 Hypothyroidism, unspecified; E78.5 Hyperlipidemia, unspecified; M79.7 Fibromyalgia; F41.9 Anxiety disorder, unspecified; H91.90 Unspecified hearing loss, unspecified ear; N18.2 Chronic kidney disease, stage 2 (mild); J96.02 Acute respiratory failure with hypercapnia; K57.90 Diverticulosis of intestine, part unspecified, without perforation or abscess without bleeding; Z99.81 Dependence on supplemental oxygen; Z86.718 Personal history of other venous thrombosis and embolism; Z87.891 Personal history of nicotine dependence; Z86.711 Personal history of pulmonary embolism; Z92.3 Personal history of irradiation
CPT/HCPCS: 31500; 36600; 51702; 71010; 76937; 80048; 80053; 81001; 82550; 82805; 82948; 83605; 83735; 83880; 84100; 84484; 85025; 85610; 85730; 86403; 87040; 87070; 87086; 87147; 87186; 87205; 87641; 93005; 94002; 94003; 94640; 94664; 96365; 96375; C9113; J0330; J1940; J2270; J2405; J2920; J2930; J3370; J7030; J7050

== ENCOUNTER 2017-01-19 14:23 | Inpatient (IN) | payer OTHER, MEDICARE ==
[~2017-01-19] VITALS: Ht 157.5 cm; Wt 61.9 kg
[2017-01-19] VITALS (10 sets, daily range): BP systolic 127–135; BP diastolic 61–72; PULSE 50–64; RESP 14–33; TEMP 97.4–97.9; O2SAT 91–93
[~2017-01-19 14:23] MED LIST changes: +PRED10PA PO; -PRED5PAK PO; +ZYVO600T PO
[2017-01-19] MEDS ORDERED: RESP: ALBUTEROL 2.5 MG/3 ML NEB (SCH) INH ONE (14:45)
[2017-01-19] MEDS ORDERED: TYLE325T PO (15:10)
[2017-01-19] MEDS ORDERED: CITRSOL4 PO (15:10)
[2017-01-19] MEDS ORDERED: LACTTAB5 PO (15:10)
[2017-01-19] MEDS ORDERED: ENEMENE5 RECTAL (15:10)
[2017-01-19] MEDS ORDERED: ALPR.5 PO (15:10)
[2017-01-19] MEDS ORDERED: DULC10SU3 RECTAL (15:10)
[2017-01-19] MEDS ORDERED: methylPREDNISolone SOD SUCC 125 MG/2 ML VIAL IV PUSH ONE (15:30)
--- NOTE | 2017-01-19 15:37 | RADRPT ---
EXAM DATE/TIME: 01/19/2017 15:03 [place] COMPARISON: CHEST SINGLE AP, January 10, 2017, 7:56. INDICATIONS : Shortness of breath. MEDICAL HISTORY : Carcinoma, thyroid. Chronic obstructive pulmonary disease. Hypercholesterolemia. SURGICAL HISTORY : Tonsillectomy. Tubal ligation. ENCOUNTER: Initial ACUITY: 1 day PAIN SCORE: 0/10 LOCATION: Bilateral chest FINDINGS: A single portable frontal view of the chest shows cardiomegaly. Bilateral small pleural effusions wit h bibasilar intralobular infiltrates. Elevation of the right hemidiaphragm. Bony structures are unrem arkable. CONCLUSION: Bibasilar infiltrates with small effusions. Intraalveolar pulmonary edema suspected. Zachary Perry Jr., MD on January 19, 2017 at 15:34 Board Certified Radiologist. This report was verified electronically.
[2017-01-19 15:45] LABS: AUTOMATED NEUTROPHIL # 9.3 TH/MM3 (1.8-7.7); BASOPHIL % 0.4 % (0.0-2.0); EOSINOPHIL % 0.1 % (0.0-4.0); HEMATOCRIT 31.6 % (35.0-46.0); HEMO FLAGS DIFF FINAL; LYMPH % 10.9 % (9.0-44.0); LYMPHOCYTE # 1.2 TH/MM3 (1.0-4.8); MEAN CELL VOLUME 97.3 FL (80.0-100.0); MEAN CORPUSCULAR HEMOGLOBIN 32.1 PG (27.0-34.0); MONO % 3.5 % (0.0-8.0); NEUT % 85.1 % (16.0-70.0); PLATELET COUNT 259 TH/MM3 (150-450); RED BLOOD COUNT 3.24 MIL/MM3 (4.00-5.30); RED CELL DISTRIBUTION WIDTH 15.9 % (11.6-17.2); WHITE BLOOD COUNT 10.9 TH/MM3 (4.0-11.0)
[2017-01-19] MEDS ORDERED: FUROSEMIDE 40 MG/4 ML VIAL IV PUSH ONE (15:45)
[2017-01-19 16:08] LABS: BICARBONATE 37.3 MEQ/L (21.0-32.0); MAGNESIUM 2.1 MG/DL (1.5-2.5); POTASSIUM 4.8 MEQ/L (3.5-5.1)
[2017-01-19 16:14] LABS: INTERNATIONAL NORMALIZED RATIO 1.2 RATIO; PROTHROMBIN TIME - PATIENT 13.6 SEC (9.8-11.6)
--- NOTE | 2017-01-19 16:42 | PD ---
HPI Chief Complaint: Respiratory Distress Time Seen by Provider: 16:37 Travel History International Travel<30 days: No Contact w/Intl Traveler<30days: No Traveled to known affect area: No History of Present Illness HPI 76-year-old female that presents to the ED for evaluation of shortness of breath. Patient has a chronic history of CHF and COPD. Patient comes here for evaluation of this. Patient is in a [facility]. Patient has been here multiple times for similar. On her last admission she was admitted for MRSA pneumonia. She denies any chest pain. She states having shortness of breath with exertion. She is currently on oxygen. She uses 4 L. Her normal O2 sats are in the late 80s as well as early 90s. Patient was given some breathing treatments and was put on a rebreather with improvement of her symptoms. She still feels short of breath but improved. She states that this worsened the past couple of days. She denies any falls or injuries. She does take blood thinners. Allergy to azithromycin and penicillin. No fevers chills or sweats. No chest pain. No nausea or vomiting. No abdominal pain. PFSH Past Medical History Hx Anticoagulant Therapy: Yes (xarelto completed on the November 07) Anemia: Yes Arthritis: Yes Anxiety: Yes Depression: No Heart Rhythm Problems: No Cancer: Yes (THYROID CA) Cardiovascular Problems: Yes High Cholesterol: Yes Chemotherapy: No Congestive Heart Failure: Yes COPD: Yes (O2 dep) Coronary Artery Disease: No Diabetes: No Diminished Hearing: Yes Deep Vein Thrombosis: Yes (x2 ) Fibromyalgia: Yes Gastrointestinal Disorders: No Genitourinary: Yes Headaches: Yes Hypertension: Yes Immune Disorder: No Implanted Vascular Access Dvce: No Musculoskeletal: Yes Neurologic: Yes Psychiatric: No Reproductive: No Respiratory: Yes (COPD) Radiation Therapy: Yes (thyroid) Thyroid Disease: Yes Influenza Vaccination: Yes ?: Not Menopausal: Yes Tubal Ligation: Yes Past Surgical History Ear Surgery: Yes (INPLANT RT/ CATARACT) Eye Surgery: Yes (CATARACT) Gynecologic Surgery: Yes (TUBAL LIGATION) Tonsillectomy: Yes Other Surgery: Yes Social History Alcohol Use: No Tobacco Use: No (quit 2013 smoked 1 ppd cigs for 57 yrs) Substance Use: No Allergies-Medications (Allergen,Severity, Reaction): Coded Allergies: Azithromycin (Verified Allergy, Severe, STOMACH CRAMPS, 01/05/17) Penicillin (Verified Allergy, Severe, 01/05/17) *MDRO Multi-Drug Resistant Organism (Verified Adverse Reaction, Unknown, ) MRSA PCR + 01/05/17 MRSA (sputum) 01/06/17 Reported Meds & Prescriptions Reported Meds & Active Scripts Active Zyvox (Linezolid) 600 Mg Tab 600 Mg PO Q12HR Oxycodone-Acetaminophen 10-325 mg Tab 1 Tab PO Q6H PRN DO NOT USE THIS MEDICINE IF YOU WILL DRIVE A CAR OR USE A MACHINE, ONLY USE IT WHEN RESTING AT HOME. Metoprolol Tartrate 25 Mg Tab 50 Mg PO Q12HR Furosemide 20 Mg Tab 20 Mg PO DAILY Xarelto (Rivaroxaban) 20 Mg Tab 20 Mg PO DAILY Norvasc (Amlodipine Besylate) 5 Mg Tab 5 Mg PO DAILY Duoneb (Ipratropium-Albuterol Neb) 0.5-2.5 Mg/3 Ml Neb 1 Ampule NEB Q4HR NEB 30 Days Reported Xanax (Alprazolam) 0.5 Mg Tab 0.5 Mg PO Q8H PRN Enema Disposable (Sodium Phosphates) 1 Micki Micki 1 Applic RECTAL IN AM PRN Dulcolax Supp (Bisacodyl) 10 Mg Supp 10 Mg RECTAL IN AM PRN Citroma Liq (Magnesium Citrate) 300 Ml Liq 296 Ml PO IN AM PRN Acidophilus (Lactobacillus Acidophilus) 1 Each Tablet 1 Tab PO BID Tylenol (Acetaminophen) 325 Mg Tab 650 Mg PO Q4H PRN Milk of Magnesia Liq (Magnesium Hydroxide) 400 Mg/5 Ml Susp 30 Ml PO DAILY PRN Albuterol Neb (Albuterol Sulfate) 2.5 Mg/3 Ml Neb 2.5 Mg NEB Q2HR NEB PRN While awake Ferrous Sulfate DR (Ferrous Sulfate) 325 Mg Tabdr 325 Mg PO TIDAC Eq Mucus ER (Guaifenesin) 600 Mg Tab 600 Mg PO Q12HR Miralax Powder (Polyethylene Glycol 3350 Powder) 1 Pow Pow 17 Gm PO HS Breo Ellipta Inh (Fluticasone/Vilanterol) 100-25 Mcg/Act Inh 1 Puff INH HS Use daily at the same time. Spironolactone 25 Mg Tab 12.5 Mg PO DAILY Gabapentin 600 Mg Tab 600 Mg PO TID Review of Systems Except as stated in HPI: all other systems reviewed are Neg Physical Exam Narrative GENERAL: SKIN: Warm and dry. HEAD: Atraumatic. Normocephalic. EYES: Pupils equal and round. No scleral icterus. No injection or drainage. ENT: No nasal bleeding or discharge. Mucous membranes pink and moist. Tongue is midline. No uvula deviation. NECK: Trachea midline. No JVD. CARDIOVASCULAR: Regular rate and rhythm. No murmurs, S3, S4. RESPIRATORY: No accessory muscle use. Minimal wheezing on exam with expiration. Breath sounds equal bilaterally. GASTROINTESTINAL: Abdomen soft, non-tender, nondistended. Hepatic and splenic margins not palpable. MUSCULOSKELETAL: Extremities without clubbing, cyanosis, or edema. No obvious deformities. Full range of motion of the upper and lower extremities bilaterally. 2+ pulses bilaterally. NEUROLOGICAL: Awake and alert. No obvious cranial nerve deficits. Motor grossly within normal limits. Five out of 5 muscle strength in the arms and legs. Normal speech. PSYCHIATRIC: Appropriate mood and affect; insight and judgment normal. Data Data Last Documented VS Vital Signs Date Time Temp Pulse Resp B/P Pulse Ox O2 Delivery O2 Flow Rate FiO2 01/19/17 15:56 57 14 127/61 92 Partial Rebreather 15 01/19/17 14:50 97.9 Orders Electrocardiogram (01/19/17 14:39) Complete Blood Count With Diff (01/19/17 14:39) Basic Metabolic Panel (Bmp) (01/19/17 14:39) Ckmb (Isoenzyme) Profile (01/19/17 14:39) Troponin I (01/19/17 14:39) B-Type Natriuretic Peptide (01/19/17 14:39) Prothrombin Time / Inr (Pt) (01/19/17 14:39) Act Partial Throm Time (Ptt) (01/19/17 14:39) Magnesium (Mg) (01/19/17 14:39) Chest, Single Ap (01/19/17 14:39) Iv Access Insert/Monitor (01/19/17 14:39) Ecg Monitoring (01/19/17 14:39) Oximetry (01/19/17 14:39) Albuterol Neb (Albuterol Neb) (01/19/17 14:45) Blood Culture (01/19/17 14:43) Methylprednisolone So Succ Inj (Solumedr (01/19/17 15:30) Furosemide Inj (Lasix Inj) (01/19/17 15:45) Consult Palliative Care (01/19/17 ) Labs Laboratory Tests Test 01/19/17 14:55 White Blood Count 10.9 TH/MM3 Red Blood Count 3.24 MIL/MM3 Hemoglobin 10.4 GM/DL Hematocrit 31.6 % Mean Corpuscular Volume 97.3 FL Mean Corpuscular Hemoglobin 32.1 PG Mean Corpuscular Hemoglobin 33.0 % Concent Red Cell Distribution Width 15.9 % Platelet Count 259 TH/MM3 Mean Platelet Volume 8.6 FL Neutrophils (%) (Auto) 85.1 % Lymphocytes (%) (Auto) 10.9 % Monocytes (%) (Auto) 3.5 % Eosinophils (%) (Auto) 0.1 % Basophils (%) (Auto) 0.4 % Neutrophils # (Auto) 9.3 TH/MM3 Lymphocytes # (Auto) 1.2 TH/MM3 Monocytes # (Auto) 0.4 TH/MM3 Eosinophils # (Auto) 0.0 TH/MM3 Basophils # (Auto) 0.0 TH/MM3 CBC Comment DIFF FINAL Differential Comment Prothrombin Time 13.6 SEC Prothromb Time International 1.2 RATIO Ratio Activated Partial 34.0 SEC Thromboplast Time Sodium Level 134 MEQ/L Potassium Level 4.8 MEQ/L Chloride Level 91 MEQ/L Carbon Dioxide Level 37.3 MEQ/L Anion Gap 6 MEQ/L Blood Urea Nitrogen 25 MG/DL Creatinine 1.14 MG/DL Estimat Glomerular Filtration 46 ML/MIN Rate Random Glucose 157 MG/DL Calcium Level 10.0 MG/DL Magnesium Level 2.1 MG/DL Total Creatine Kinase 35 U/L Troponin I 0.02 NG/ML B-Type Natriuretic Peptide 164 PG/ML [facility] Medical Decision Making Medical Screen Exam Complete: Yes Emergency Medical Condition: Yes Medical Record Reviewed: Yes Interpretation(s) CBC & BMP Diagram 01/19/17 14:55 BNP in the 100s Last Impressions Chest X-Ray 01/19/17 1099 Signed Impressions: Service Date/Time: Thursday, January 19, 2017 15:03 - CONCLUSION: Bibasilar infiltrates with small effusions. Intraalveolar pulmonary edema suspected. Zachary Perry Jr., MD Differential Diagnosis CHF versus COPD versus dehydration versus pneumonia versus respiratory failure versus respiratory distress Narrative Course 76-year-old female that presents to the ED for evaluation of shortness of breath. Patient was properly examined and was found to have signs and symptoms very consistent what appears to be COPD versus CHF exacerbation. Labs and imaging ordered. Chest x-ray showed pleural edema. Labs were essentially unremarkable other than elevated BNP. Case discussed with my attending Dr. Phelan who evaluated the patient with me and agrees with admission for CHF exacerbation. He spoke at length with the patient about possible palliative care for her condition. Case was discussed with Dr. Patel who agrees to admission. Diagnosis Primary Impression: CHF (congestive heart failure) Qualified Code: I50.21 - Acute systolic congestive heart failure Admitting Information Admitting Physician Requests: Observation Waqas Cerda Jan 19, 2017 16:42
--- NOTE | 2017-01-19 16:46 | HHI.HP ---
HPI Service [facility] Primary Care Physician Fernanda Fox MD Admission Diagnosis acute CHF exacerbation, COPD Diagnoses: Chief Complaint: "My COPD" "got bad about 1 o'clock." Travel History International Travel<30 Days: No Contact w/Intl Traveler <30 Da: No Traveled to Known Affected Are: No History of Present Illness Written by Fely Adhikari, acting as scribe for Dr. Kennedy on 01/19/17 at 17:18. This is a 76 year old female patient with a past medical history which includes Arthritis, Chronic anticoagulation with Xarelto, High Cholesterol, Congestive Heart Failure, COPD on home 4 L O2 at home, Deep Vein Thrombosis x2, Fibromyalgia, Headaches, Hypertension and Thyroid Disease. Patient has had 7 admissions this calender year. Most recent admission 01/05/2017 to 01/14/2017 for acute respiratory failure secondary to sputum positive MRSA pneumonia requiring ICU admission and intubation. Patient presents to the ER via [facility] from the [facility] secondary to, "my COPD," "got real bad about 1 o'clock." Per ER triage note patient patient's SPO2 on room air 67%. Patient is on partial rebreather during interview and only able to speak a few words at a time due to SOB. Information gathered from patient as well as prior computerized charting. Patient reports that she was doing well yesterday and then today her shortness of breath got much worse today around 1300. Shortness of breath worse with talking. Shortness of breath not relieved by nebulizers. Denies fevers, chills, cough, chest pain, N/V/D/C. Review of Systems Except as stated in HPI: all other systems reviewed are Neg Past Family Social History Past Medical History Arthritis Chronic anticoagulation with Xarelto High Cholesterol: Congestive Heart Failure COPD on home O2 Deep Vein Thrombosis x2 Fibromyalgia Headaches Hypertension Thyroid Disease Past Surgical History Cataracts Tubal ligation Tonsillectomy Reported Medications Zyvox (Linezolid) 600 Mg Tab 600 Mg PO Q12HR Oxycodone-Acetaminophen 10-325 mg Tab 1 Tab PO Q6H PRN DO NOT USE THIS MEDICINE IF YOU WILL DRIVE A CAR OR USE A MACHINE, ONLY USE IT WHEN RESTING AT HOME. Metoprolol Tartrate 25 Mg Tab 50 Mg PO Q12HR Furosemide 20 Mg Tab 20 Mg PO DAILY Xarelto (Rivaroxaban) 20 Mg Tab 20 Mg PO DAILY Norvasc (Amlodipine Besylate) 5 Mg Tab 5 Mg PO DAILY Duoneb (Ipratropium-Albuterol Neb) 0.5-2.5 Mg/3 Ml Neb 1 Ampule NEB Q4HR NEB 30 Days Xanax (Alprazolam) 0.5 Mg Tab 0.5 Mg PO Q8H PRN Enema Disposable (Sodium Phosphates) 1 Micki Micki 1 Applic RECTAL IN AM PRN Dulcolax Supp (Bisacodyl) 10 Mg Supp 10 Mg RECTAL IN AM PRN Citroma Liq (Magnesium Citrate) 300 Ml Liq 296 Ml PO IN AM PRN Acidophilus (Lactobacillus Acidophilus) 1 Each Tablet 1 Tab PO BID Tylenol (Acetaminophen) 325 Mg Tab 650 Mg PO Q4H PRN Milk of Magnesia Liq (Magnesium Hydroxide) 400 Mg/5 Ml Susp 30 Ml PO DAILY PRN Albuterol Neb (Albuterol Sulfate) 2.5 Mg/3 Ml Neb 2.5 Mg NEB Q2HR NEB PRN While awake Ferrous Sulfate DR (Ferrous Sulfate) 325 Mg Tabdr 325 Mg PO TIDAC Eq Mucus ER (Guaifenesin) 600 Mg Tab 600 Mg PO Q12HR Miralax Powder (Polyethylene Glycol 3350 Powder) 1 Pow Pow 17 Gm PO HS Breo Ellipta Inh (Fluticasone/Vilanterol) 100-25 Mcg/Act Inh 1 Puff INH HS Use daily at the same time. Spironolactone 25 Mg Tab 12.5 Mg PO DAILY Gabapentin 600 Mg Tab 600 Mg PO TID Allergies: Coded Allergies: Azithromycin (Verified Allergy, Severe, STOMACH CRAMPS, 01/05/17) Penicillin (Verified Allergy, Severe, 01/05/17) *MDRO Multi-Drug Resistant Organism (Verified Adverse Reaction, Unknown, ) MRSA PCR + 01/05/17 MRSA (sputum) 01/06/17 Family History Mother had No family history of early coronary artery disease, DM or cancer Social History Lives in [facility] Alcohol Use: No Tobacco Use: No (quit 2013 smoked 1 ppd cigs for 57 yrs) Substance Use: No Physical Exam Vital Signs Vital Signs Date Time Temp Pulse Resp B/P Pulse Ox O2 Delivery O2 Flow Rate FiO2 01/19/17 15:56 57 14 127/61 92 Partial Rebreather 15 01/19/17 14:50 97.9 59 16 135/67 92 Non-Rebreather 01/19/17 14:47 92 Non-Rebreather 15.00 01/19/17 14:43 97.9 59 16 135/67 91 Physical Exam GENERAL: Chronically ill appearing female. SKIN: No rashes, ecchymoses or lesions. Cool and dry. HEAD: Atraumatic. Normocephalic. No temporal or scalp tenderness. EYES: Pupils equal round and reactive. Extraocular motions intact. No scleral icterus. No injection or drainage. ENT: Nose without bleeding, purulent drainage or septal hematoma. Throat without erythema, tonsillar hypertrophy or exudate. Uvula midline. Airway patent. NECK: Trachea midline. No JVD or lymphadenopathy. Supple, nontender, no meningeal signs. CARDIOVASCULAR: Regular rate and rhythm without murmurs, gallops, or rubs. RESPIRATORY: diminished through out with poor air movement; scattered rales; breathing is somewhat labored. GASTROINTESTINAL: Abdomen soft, non-tender, nondistended. No hepato-splenomegaly , or palpable masses. No guarding. MUSCULOSKELETAL: Extremities without clubbing, cyanosis, or edema. No joint tenderness, effusion, or edema noted. No calf tenderness. Negative Homans sign bilaterally. NEUROLOGICAL: Awake and alert. Cranial nerves II through XII intact. Motor and sensory grossly within normal limits. Five out of 5 muscle strength in all muscle groups. Normal speech. Laboratory Laboratory Tests Test 01/19/17 14:55 White Blood Count 10.9 Red Blood Count 3.24 Hemoglobin 10.4 Hematocrit 31.6 Mean Corpuscular Volume 97.3 Mean Corpuscular Hemoglobin 32.1 Mean Corpuscular Hemoglobin 33.0 Concent Red Cell Distribution Width 15.9 Platelet Count 259 Mean Platelet Volume 8.6 Neutrophils (%) (Auto) 85.1 Lymphocytes (%) (Auto) 10.9 Monocytes (%) (Auto) 3.5 Eosinophils (%) (Auto) 0.1 Basophils (%) (Auto) 0.4 Neutrophils # (Auto) 9.3 Lymphocytes # (Auto) 1.2 Monocytes # (Auto) 0.4 Eosinophils # (Auto) 0.0 Basophils # (Auto) 0.0 CBC Comment DIFF FINAL Differential Comment Prothrombin Time 13.6 Prothromb Time International 1.2 Ratio Activated Partial 34.0 Thromboplast Time Sodium Level 134 Potassium Level 4.8 Chloride Level 91 Carbon Dioxide Level 37.3 Anion Gap 6 Blood Urea Nitrogen 25 Creatinine 1.14 Estimat Glomerular Filtration 46 Rate Random Glucose 157 Calcium Level 10.0 Magnesium Level 2.1 Total Creatine Kinase 35 Troponin I 0.02 B-Type Natriuretic Peptide 164 Date/Time Procedure Status Source Growth 01/19/17 14:55 Aerobic Blood Culture Received Blood Peripheral Pending 01/19/17 14:55 Anaerobic Blood Culture Received Blood Peripheral Pending Result Diagram: 01/19/17 1455 01/19/17 1455 Imaging Last Impressions Chest X-Ray 01/19/17 1439 Signed Impressions: Service Date/Time: Thursday, January 19, 2017 15:03 - CONCLUSION: Bibasilar infiltrates with small effusions. Intraalveolar pulmonary edema suspected. Zachary Perry Jr., MD Assessment and Plan Problem List: (1) Acute respiratory failure with hypoxia and hypercapnia ICD Code: J96.01 Status: Acute (2) COPD exacerbation ICD Code: J44.1 Status: Acute Assessment and Plan This is a 76 year old female patient with a past medical history which includes Arthritis, Chronic anticoagulation with Xarelto, High Cholesterol, Congestive Heart Failure, COPD on home 4 L O2 at home, Deep Vein Thrombosis x 2, Fibromyalgia, Headaches, Hypertension and Thyroid Disease. Patient has had 7 admissions this calender year. Most recent admission 01/05/2017 to 01/14/2017 for acute respiratory failure secondary to sputum positive MRSA pna requiring ICU admission and intubation. Patient presents to the ER via [facility] from the [facility] secondary to, "my COPD," "got real bad about 1 o'clock. " Per ER triage note patient patient's SPO2 on room air 67%. Patient is on partial rebreather during interview and only able to speak a few words at a time due to SOB. Acute hypoxemic respiratory failure--> Per ER triage note SPO2 67% on room air COPD exacerbation - currently has been on partial rebreather - duonebs Q6H scheduled and Q2H PRN - solumedrol 125 mg IV now then 60 mg IV Q6H daily - currently oxygen dependent - Mucinex - pulm is following Dr. Cummings who has been consulted - resent MRSA PNA - sputum 01/06 MRSA, sensitive to zyvox - Levofloxacin 750mg IV daily - repeat blood cultures pending - R/O ACS with serial EKG and cardiac enzymes Chronic diastolic Congestive heart failure- cont home metop tartrate 50 mg BID, furosemide 20 mg IV daily, spironolactone 12.5 mg dialy - echocardiogram 12/05/16 reveals EF 65-70% with grade 1 diastolic dysfunction History of DVTs - continue Xarelto Peripheral neuropathy cont home gabapentin DVT prophy: on Xarelto GI prophy: Protonix while on steroids Discussed palliative care with patient who is agreeable- consult placed to palliative care FULL CODE at this time This note was transcribed by angela Adhikari. I, Dr. Geoff Kennedy personally performed the history, physical exam, and medical decision making; and confirmed the accuracy of the information in the transcribed note. Authenticated by Dr. Geoff Kennedy on 01/19/17 at 17:33. Physician Certification 2 Midnight Certification Type: Admission for Inpatient Services Order for Inpatient Services The services are ordered in accordance with Medicare regulations or non- Medicare payer requirements, as applicable. In the case of services not specified as inpatient-only, they are appropriately provided as inpatient services in accordance with the 2-midnight benchmark. Estimated LOS (days): 4 days is the estimated time the patient will need to remain in the hospital, assuming treatment plan goals are met and no additional complications. Post-Hospital Plan: SNF Fely Adhikari Jan 19, 2017 16:46 Geoff Kennedy MD Jan 19, 2017 17:34
--- NOTE | 2017-01-19 16:52 | PD ---
Data Data Last Documented VS Vital Signs Date Time Temp Pulse Resp B/P Pulse Ox O2 Delivery O2 Flow Rate FiO2 01/19/17 15:56 57 14 127/61 92 Partial Rebreather 15 01/19/17 14:50 97.9 Orders Electrocardiogram (01/19/17 14:39) Complete Blood Count With Diff (01/19/17 14:39) Basic Metabolic Panel (Bmp) (01/19/17 14:39) Ckmb (Isoenzyme) Profile (01/19/17 14:39) Troponin I (01/19/17 14:39) B-Type Natriuretic Peptide (01/19/17 14:39) Prothrombin Time / Inr (Pt) (01/19/17 14:39) Act Partial Throm Time (Ptt) (01/19/17 14:39) Magnesium (Mg) (01/19/17 14:39) Chest, Single Ap (01/19/17 14:39) Iv Access Insert/Monitor (01/19/17 14:39) Ecg Monitoring (01/19/17 14:39) Oximetry (01/19/17 14:39) Albuterol Neb (Albuterol Neb) (01/19/17 14:45) Blood Culture (01/19/17 14:43) Methylprednisolone So Succ Inj (Solumedr (01/19/17 15:30) Furosemide Inj (Lasix Inj) (01/19/17 15:45) Consult Palliative Care (01/19/17 ) Admit Order (Ed Use Only) (01/19/17 16:36) Labs Laboratory Tests Test 01/19/17 14:55 White Blood Count 10.9 TH/MM3 Red Blood Count 3.24 MIL/MM3 Hemoglobin 10.4 GM/DL Hematocrit 31.6 % Mean Corpuscular Volume 97.3 FL Mean Corpuscular Hemoglobin 32.1 PG Mean Corpuscular Hemoglobin 33.0 % Concent Red Cell Distribution Width 15.9 % Platelet Count 259 TH/MM3 Mean Platelet Volume 8.6 FL Neutrophils (%) (Auto) 85.1 % Lymphocytes (%) (Auto) 10.9 % Monocytes (%) (Auto) 3.5 % Eosinophils (%) (Auto) 0.1 % Basophils (%) (Auto) 0.4 % Neutrophils # (Auto) 9.3 TH/MM3 Lymphocytes # (Auto) 1.2 TH/MM3 Monocytes # (Auto) 0.4 TH/MM3 Eosinophils # (Auto) 0.0 TH/MM3 Basophils # (Auto) 0.0 TH/MM3 CBC Comment DIFF FINAL Differential Comment Prothrombin Time 13.6 SEC Prothromb Time International 1.2 RATIO Ratio Activated Partial 34.0 SEC Thromboplast Time Sodium Level 134 MEQ/L Potassium Level 4.8 MEQ/L Chloride Level 91 MEQ/L Carbon Dioxide Level 37.3 MEQ/L Anion Gap 6 MEQ/L Blood Urea Nitrogen 25 MG/DL Creatinine 1.14 MG/DL Estimat Glomerular Filtration 46 ML/MIN Rate Random Glucose 157 MG/DL Calcium Level 10.0 MG/DL Magnesium Level 2.1 MG/DL Total Creatine Kinase 35 U/L Troponin I 0.02 NG/ML B-Type Natriuretic Peptide 164 PG/ML MDM Supervised Visit with FITO: Yes Narrative Course The history, exam, and medical decision-making in the associated mid-level provider note were completed with my assistance. I reviewed and agree with the findings presented. I attest that I had a [id number] encounter with the patient on the same day, and personally performed and documented my assessment and findings in the medical record. *My assessment and Findings: 76-year-old woman presents to the emergency department with abrupt onset of shortness of breath starting about 1 PM. She's been doing well since she left the hospital. She is a history of multiple medical problems including most notably end-stage COPD and CHF. She was hypoxic. She is on home oxygen. She' s had multiple hospitalizations. She looks improved in but is still on a lot of oxygen. She has a living will. I spoke with her about intubation. States that she were to worsen she would still want to be intubated at this point. She has worsening and states COPD and may benefit from palliative care consultation. I spoke with her and I spoke with the son at length about goals of care and the natural trajectory of COPD. I encouraged him to have discussions regarding goals of care and end of life thoughts wall she was still well enough to participate in these discussions. They seem very open to this and despite having aggressive goals of care now are comfortable with talking the palliative care. No true she may be a good hospice candidate now and certainly would benefit from better symptom control. Patient be admitted for further evaluation. Diagnosis Primary Impression: CHF (congestive heart failure) Qualified Code: I50.21 - Acute systolic congestive heart failure Av Phelan MD Jan 19, 2017 16:52
[2017-01-19] MEDS ORDERED: MAGNESIUM HYDROXIDE SUSP 30 ML CUP PO PRN (17:00)
[2017-01-19] MEDS ORDERED: LACTULOSE SYRUP 20 GM/30 ML CUP PO PRN (17:00)
[2017-01-19] MEDS ORDERED: RESP: ALBUTEROL 2.5 MG/3 ML NEB (PRN) INH (17:00)
[2017-01-19] MEDS ORDERED: ACETAMINOPHEN 325 MG TAB PO PRN (17:00)
[2017-01-19] MEDS ORDERED: NALOXONE HCL 0.4 MG/ML AMP IV PRN (17:00)
[2017-01-19] MEDS ORDERED: SODIUM CHLORIDE 0.9% FLUSH 10 ML FLUSH IV FLUSH PRN (17:00)
[2017-01-19] MEDS ORDERED: BISACODYL 10 MG SUPP RECTAL PRN (17:00)
[2017-01-19] MEDS ORDERED: ONDANSETRON HCL 4 MG/2 ML VIAL IVP PRN (17:00)
[2017-01-19] MEDS ORDERED: SENNOSIDES 8.6 MG TAB PO PRN (17:00)
[2017-01-19] MEDS ORDERED: LEVOFLOXACIN 750 MG PREMIX INJ 150 ML IV SCH (18:00)
[2017-01-19] MEDS ORDERED: PILL SPLITTER OTHER PRN (18:00)
[2017-01-19] MEDS: GABAPENTIN 300 MG CAP PO SCH (18:03)
[2017-01-19] MEDS: DOCUSATE SODIUM 50 MG/SENNA 8.6 MG TAB PO SCH (21:00)
[2017-01-19] MEDS: RESP: ALBUTEROL 2.5 MG/IPRATROPIUM 0.5 MG NEB (SCH) INH (21:07)
[2017-01-19] MEDS: FLUTICASONE 100 MCG/VILANTEROL 25 MCG INHALER INH SCH (21:23)
[2017-01-19] MEDS: SODIUM CHLORIDE 0.9% FLUSH 10 ML FLUSH IV FLUSH SCH (21:25)
[2017-01-19] MEDS: LINEZOLID 600 MG TAB PO SCH (21:25)
[2017-01-19] MEDS: METOPROLOL TARTRATE 50 MG TAB PO SCH (21:25)
[2017-01-19] MEDS: guaiFENesin E.R. 600 MG TAB PO SCH (21:25)
[2017-01-19] MEDS: LACTOBACILLUS ACIDOPHILUS TAB PO SCH (21:25)
[2017-01-19] MEDS: methylPREDNISolone SOD SUCC 125 MG/2 ML VIAL IVP SCH (21:26)
[2017-01-20] VITALS (9 sets, daily range): BP systolic 110–142; BP diastolic 58–73; PULSE 54–66; RESP 18–20; TEMP 97.8–98.4; O2SAT 82–98
[2017-01-20] MEDS: methylPREDNISolone SOD SUCC 125 MG/2 ML VIAL IVP SCH ×4 (03:10→21:44)
[2017-01-20] MEDS: RESP: ALBUTEROL 2.5 MG/IPRATROPIUM 0.5 MG NEB (SCH) INH ×4 (03:21→21:31)
[2017-01-20 06:35] LABS: BASOPHIL % 0.3 % (0.0-2.0); HEMATOCRIT 29.9 % (35.0-46.0); HEMO FLAGS DIFF FINAL; LYMPH % 10.8 % (9.0-44.0); MEAN CELL VOLUME 96.2 FL (80.0-100.0); MEAN CORPUSCULAR HEMOGLOBIN 32.2 PG (27.0-34.0); MEAN CORPUSCULAR HGB CONC 33.5 % (32.0-36.0); MONO % 1.1 % (0.0-8.0); NEUT % 87.8 % (16.0-70.0); PLATELET COUNT 262 TH/MM3 (150-450); RED BLOOD COUNT 3.11 MIL/MM3 (4.00-5.30); WHITE BLOOD COUNT 9.1 TH/MM3 (4.0-11.0)
[2017-01-20 06:45] LABS: ALT (GPT) 17 U/L (10-53); ANION GAP 9 MEQ/L (5-15); AST (GOT) 20 U/L (15-37); BICARBONATE 38.4 MEQ/L (21.0-32.0); BLOOD UREA NITROGEN 35 MG/DL (7-18); CHLORIDE 88 MEQ/L (98-107); GLOMERULAR FILTRATION RATE 41 ML/MIN (>89); POTASSIUM 4.7 MEQ/L (3.5-5.1); SODIUM (NA) 135 MEQ/L (136-145)
[2017-01-20 06:46] LABS: ALKALINE PHOSPHATASE 35 U/L (45-117); TOTAL BILIRUBIN ADULT 0.4 MG/DL (0.2-1.0)
[2017-01-20 07:33] LABS: BLOOD GAS BASE EXCESS 14.9 mmol/L (-2-2); BLOOD GAS CARBOXYHEMOGLOBIN 1.5 % (0-4); BLOOD GAS HCO3 40 mmol/L (22-26); BLOOD GAS METHEMOGLOBIN 0.5 % (0-2); BLOOD GAS O2 HGB SATURATION 89 % (90-100); BLOOD GAS OXYGEN CONTENT 12.5 Vol % (12.0-20.0); BLOOD GAS PCO2 57 mmHg (38-42); BLOOD GAS PO2 53 mmHG (61-120); CRITICAL VALUE YES; DRAW SITE RT RADIAL; FIO2 15 %; LITER FLOW 185 L/M; NUMBER OF ARTERIAL PUNCTURES 1; STAT YES; TEMP CORR TO 98.6; ULNAR PULSE PRESENT
--- NOTE | 2017-01-20 07:50 | MB ---
cc: WAYNE JONES DATE OF CONSULTATION 01/19/[address] Kennedy REASON FOR CONSULTATION Respiratory insufficiency HISTORY OF PRESENT ILLNESS Mrs. Diaz is a pleasant 76-year-old female who is known to me from the office. She has multiple admissions in this hospital. She was recently discharged from the intensive care unit. She went [facility]. She was recuperating over there. She became more short of breath and she was sent to the emergency room. Initially her saturation was 67%. She is put on non-rebreather mask and she feels better. She does not have any fever or chills. No night sweats, not able to bring up any phlegm. No chest pain. She had a workup done in the emergency room. Her WBC count is 10.9, hemoglobin 10.5, hematocrit 31.6, MCV 97, platelet count 259. Sodium 134, potassium 4.8, chloride 91, CO2 37, BUN 25, creatinine 1.14. Chest x-ray shows she has bibasilar infiltrate with small effusion. PAST MEDICAL HISTORY Significant for a longstanding history of COPD, chronic respiratory failure, congestive heart failure, history of DVT fibromyalgia, hypertension, and thyroid disease. MEDICATIONS She is currently takin. Lasix 20 mg a day. 2. Amlodipine 5 mg 3. Xarelto 20 mg a day 4. Aldactone 12.5 mg a day 5. Ferrous sulfate 325 mg three times a day 6. Albuterol/Atrovent nebulizer treatment 7. Solu-Medrol 60 mg q6-hour 8. Breo Ellipta once a day 100/25 once a day 9. Mucinex 600 mg twice a day 10. Zyvox 600 mg q. 12-hour 11. Metoprolol 50 mg q. 12-hour 12. Lactinex 1 tablet twice a day 13. Levaquin 750 mg a day 14. Neurontin 600 mg three times a day 15. Xanax 0.5 mg p.r.n. ALLERGIES She is allergic to ZITHROMAX AND PENICILLIN. SOCIAL HISTORY She has a history of smoking. No alcohol abuse. FAMILY HISTORY Noncontributory REVIEW OF SYSTEMS She feels weak and is not able to get up and walk because of extreme weakness. She is undergoing rehab and according to [facility] no seizure. Per patient no bleeding from any site. PHYSICAL EXAM Physical examination reveals an elderly female mildly short of breath and mild respiratory distress. She is on non-rebreather mask. VITAL SIGNS: Blood pressure 132/66, heart rate 58, respiration 18, temperature 97.9. HEENT: Pupils are equal and reactive to light. Oral mucosa and nasal mucosa normal. NECK: Supple. JVP not raised. CHEST: She has expiratory rhonchi. CARDIOVASCULAR: S1 and S2 normal. ABDOMEN: Soft, nontender, nondistended. Bowel sounds are present. EXTREMITIES: No edema. IMPRESSION 1. Acute on chronic respiratory failure 2. Hypoxia 3. COPD exacerbation 4. Lung infiltrate 5. History of DVT and pulmonary embolism. PLAN The patient is on a non-rebreather mask. We will supplement oxygen to keep her saturated at 90% and if needed, will put her on BiPAP at night time. Continue antibiotic, aerosol treatment, IV Solu-Medrol. She is on Xaralto. Further treatment will depend upon the course in the hospital. Thank you Dr. Kennedy for this consultation. MD LEENA Uribe/YOLETTE /6:25 PM /7:19 AM
--- NOTE | 2017-01-20 08:04 | RADRPT ---
EXAM DATE/TIME: 01/20/2017 07:42 [facility] COMPARISON: CHEST SINGLE AP, January 19, 2017, 15:03. INDICATIONS : Respiratory distress. MEDICAL HISTORY : Carcinoma, thyroid. Chronic obstructive pulmonary disease. Hypercholesterolemia. SURGICAL HISTORY : Tonsillectomy. Tubal ligation. ENCOUNTER: Initial ACUITY: 1 day PAIN SCORE: Non-responsive. LOCATION: Bilateral chest FINDINGS: Portable AP view of the chest demonstrates mildly enlarged cardiac silhouette with calcification of t he aorta. Lungs are underinflated with bibasilar opacity. Calcified granuloma in the left lung is sta ble. No pneumothorax is visualized. The bones and soft tissues demonstrate no acute finding. There is a calcification of the mitral anulus. CONCLUSION: Stable chest x-ray was underinflation and bibasilar opacity representing either atelectasis or consol idation. Jasper Head MD on January 20, 2017 at 7:59 Board Certified Radiologist. This report was verified electronically.
--- NOTE | 2017-01-20 08:34 | HHI.PR ---
Subjective Remarks Follow up respiratory failure, COPD. [facility] was called due to low O2 sats. Patient had increased dyspnea this morning. I examined her upon her arrival to [facility]. She states that her breathing is a little better. Denies chest pain. CXR shows possible consolidation. Objective Vitals Vital Signs Date Time Temp Pulse Resp B/P Pulse Ox O2 Delivery O2 Flow Rate FiO2 01/20/17 07:25 82 15.00 01/20/17 04:00 Partial Non-Rebreather 15.00 01/20/17 03:23 97.8 54 20 124/73 98 01/20/17 00:00 Partial Non-Rebreather 15.00 01/19/17 23:15 97.4 50 22 128/71 93 01/19/17 22:00 52 01/19/17 21:07 92 Partial Rebreather 15.00 01/19/17 20:00 Partial Non-Rebreather 15.00 01/19/17 19:58 97.8 64 33 134/72 92 01/19/17 19:00 63 01/19/17 17:11 58 14 132/66 92 Partial Rebreather 15 01/19/17 15:56 57 14 127/61 92 Partial Rebreather 15 01/19/17 14:50 97.9 59 16 135/67 92 Non-Rebreather 01/19/17 14:47 92 Non-Rebreather 15.00 01/19/17 14:43 97.9 59 16 135/67 91 I/O 01/19/17 01/19/17 01/19/17 01/20/17 01/20/17 01/20/17 07:00 15:00 23:00 07:00 15:00 23:00 Intake Total 50 ml 0 ml Output Total 600 ml 300 ml Balance -550 ml -300 ml Intake Oral 50 ml 0 ml Output Urine Total 600 ml 300 ml # Voids 3 # Bowel Movements 0 0 Result Diagram: 01/20/17 0557 01/20/17 0557 Imaging Last Impressions Chest X-Ray 01/20/17 0000 Signed Impressions: Service Date/Time: Friday, January 20, 2017 07:42 - CONCLUSION: Stable chest x-ray was underinflation and bibasilar opacity representing either atelectasis or consolidation. Jasper Head MD Objective Remarks General: Elderly female in no acute distress. Appears older than stated age. On nonrebreather mask. Heart: Regular rate and rhythm. No murmur. Lungs: Bibasilar crackles. Breathing is nonlabored. Abdomen: Soft, nontender, nondistended. Extremities: No lower extremity edema. 2+ dorsalis pedis pulses bilaterally. Psych: Alert and oriented. Procedures None Urinary Catheter: No Vascular Central Line Catheter: No A/P Problem List: (1) Acute respiratory failure with hypoxia and hypercapnia ICD Code: J96.01 Status: Acute (2) COPD exacerbation ICD Code: J44.1 Status: Acute (3) Acute exacerbation of congestive heart failure ICD Code: I50.9 Status: Acute Assessment and Plan 1. Acute respiratory failure with hypoxia and hypercapnia: Appreciate pulmonology recommendations. Secondary to COPD, CHF exacerbation. Continue IV steroids, bronchodilators, supplemental oxygen. Place on BiPAP. 2. Pneumonia: Continue Levaquin, Zyvox. Patient had MRSA in sputum on 01/06/17. 3. Acute exacerbation of chronic diastolic CHF: Continue metoprolol, lasix, spironolactone. Echo 12/05/16 showed EF 65-70% with grade 1 diastolic dysfunction. 4. History of DVT: Continue Xarelto. 5. Peripheral neuropathy: Continue gabapentin. 6. GI prophylaxis: Protonix. 7. CODE STATUS: Full code. I again clarified with the patient today that she would want intubation if necessary. She does want to speak with her family and palliative care to further clarify. Palliative care consultation is pending. Problem Qualifiers (1) Acute exacerbation of congestive heart failure: Qualified Code: I50.33 - Acute on chronic diastolic congestive heart failure Geoff Kennedy MD Jan 20, 2017 08:34
[2017-01-20] MEDS: GABAPENTIN 300 MG CAP PO SCH ×3 (08:54→20:00)
[2017-01-20] MEDS: METOPROLOL TARTRATE 50 MG TAB PO SCH ×2 (08:54→20:00)
[2017-01-20] MEDS: DOCUSATE SODIUM 50 MG/SENNA 8.6 MG TAB PO SCH ×2 (08:54→19:59)
[2017-01-20] MEDS: SPIRONOLACTONE 25 MG TAB PO SCH (08:54)
[2017-01-20] MEDS: guaiFENesin E.R. 600 MG TAB PO SCH ×2 (08:54→19:59)
[2017-01-20] MEDS: LINEZOLID 600 MG TAB PO SCH ×2 (08:54→20:00)
[2017-01-20] MEDS: LACTOBACILLUS ACIDOPHILUS TAB PO SCH ×2 (08:54→19:59)
[2017-01-20] MEDS: SODIUM CHLORIDE 0.9% FLUSH 10 ML FLUSH IV FLUSH SCH ×2 (08:58→20:01)
[2017-01-20] MEDS: FUROSEMIDE 20 MG/2 ML VIAL IV PUSH SCH (08:58)
[2017-01-20] MEDS: FERROUS SULFATE 325 MG (65 MG ELEMENTAL IRON) TAB PO SCH ×3 (09:08→17:00)
[2017-01-20] MEDS: amLODIPine BESYLATE 5 MG TAB PO SCH (09:08)
[2017-01-20 11:01] LABS: BACTERIA, URINE RARE /hpf; BLOOD, URINE NEG (NEG); GLUCOSE,URINE NEG (NEG); HYALINE CAST, URINE 5 /lpf (RARE); KETONE, URINE NEG (NEG); MUCUS URINE FEW /lpf (OCC); NITRITE,URINE NEG (NEG); SQUAMOUS EPITHELIAL CELL URINE <1 /hpf (0-5); TRANSITIONAL EPI CELLS, URINE <1 /hpf; URINE COLOR YELLOW (YELLW/STRAW)
[2017-01-20 11:03] LABS: COMMENT (UR) CATH-CULTURE IND; CULTURE IF INDICATED CATH CULTURE IND
--- NOTE | 2017-01-20 12:10 | PD.CONS ---
Consult Service Palliative Care . Consult Requested By Dr. Phelan . Primary Care Physician Fernanda Fox MD . Reason for Consultation a. To assist with evaluation and management of symptoms including: dyspnea, confusion, debility b. To assist medical decision maker(s) with: better understanding of current medical conditions; weighing benefits/burdens of medical treatment options; making medical treatment decisions. . HPI History of Present Illness Ms. Diaz is a 76-year-old female with a history of COPD and CHF who presented to [facility] ED from the [facility] on 01/19/2017 for evaluation of shortness of breath. The patient has an complicated medical history with 7 acute hospitalizations since 09/10/2016. During her most recent hospitalization ( 01/05/17 to 01/14/17) she was treated for acute respiratory failure secondary to sputum positive MRSA pneumonia requiring ICU admission and intubation. Upon presentation to the ED, the patient reported shortness of breath with minimal exertion that had progressively worsened over the previous few days, her oxygen saturation was 67% on room air. 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 Patient was placed on partial non-rebreather; the patient was only able to speak a few words at a time to to her shortness of breath. * Pulse: 59, respirations 16, BP 135/67, oxygen saturation 91% on 15 L via nonrebreather, oral temperature 97.9 * WBC: 10.9, hemoglobin 10.4, hematocrit 31.6, platelets 259, neutrophils 85.1% * PT: 13.6, INR 1.2, APTT 34.0 * Sodium: 34, potassium 4.8, chloride 91, carbon dioxide 37.3, glucose 157, calcium 10.0, magnesium 2.1 * BUN: 25, creatinine 1.14, GFR 46 * Total creatine kinase: 35 * Troponin: 0.02 * BNP: 164 * Abnormal urinalysis-urine culture pending. * Chest x-ray showed bibasilar infiltrates with small effusions; intra-alveolar pulmonary edema suspected. Patient was admitted for further evaluation and medical management of CHF; on nonrebreather mask with minimal oxygen to maintain saturations at 90% and BiPAP at night if needed. Current orders for scheduled and PRN DuoNeb's; Solu-Medrol 125 mg IV 1 and then 60 mg IV every 6 hours daily; levofloxacin 750 mg IV daily. Abnormal urinalysis. Urine culture and blood culture pending. Sputum positive MRSA pneumonia. Infectious disease and pulmonology consults pending. Palliative Care was consulted to assist with symptom management and to discuss with the family the benefits and burdens of her current illnesses and the options regarding future care. . Function/Cognitive Trajectory Patient's past medical history is significant for HTN, previous PE and DVT, CHF , COPD-oxygen dependent, history of goiter s/p radiation therapy with subsequent hypothyroidism, dyslipidemia, fibromyalgia, arthritis, cholelithiasis , diverticulosis, RLS, sciatica and iron deficiency anemia. She has been oxygen dependent for many year but requirements recently increased to 4L via nasal cannula. She has been hospitalized 7 times since 09/10/2016 with COPD exacerbations and respiratory failure requiring intubation; during last admission treated for + MRSA PNA. Patient reports progressively increased weakness, requiring increased assistance with all ADLs; patient previously stated she could ambulate short distances with 2 person assist but today states she is bedbound. Patient has had an acute change in her disease trajectory over the past 6 months as evidenced by multiple hospitalizations, weight loss, progressively worsening dyspnea with increased oxygen requirements, increased weakness/fatigue. . Review of Systems Constitutional: COMPLAINS OF: Fatigue, Weight loss, Change in appetite ( decreased appetite), Pain (Patient reports right knee and hip pain; bilateral lower extremity numbness.), Generalized weakness (per patient reportprimarily bedbound) Endocrine: DENIES: Polydipsia, Polyuria, Polyphagia Eyes: COMPLAINS OF: Vision loss Ears, nose, mouth, throat: DENIES: Epistaxis Respiratory: COMPLAINS OF: Sputum production, Shortness of breath, DENIES: Hemoptysis Cardiovascular: COMPLAINS OF: Dyspnea on Exertion, DENIES: Lower Extremity Edema Gastrointestinal: DENIES: Nausea, Vomiting Musculoskeletal: COMPLAINS OF: Joint pain (right knee and hip pain) Hematologic/Lymphatics: COMPLAINS OF: Bruising Neurologic: COMPLAINS OF: Speech Problems (secondary to dyspnea) Psychiatric: COMPLAINS OF: Confusion Past Family Social History Coded Allergies: Azithromycin (Verified Allergy, Severe, STOMACH CRAMPS, 01/05/17) Penicillin (Verified Allergy, Severe, 01/05/17) *MDRO Multi-Drug Resistant Organism (Verified Adverse Reaction, Unknown, ) MRSA PCR + 01/05/17 MRSA (sputum) 01/06/17 Past Medical History Arthritis Chronic anticoagulation with Xarelto Dyslipidemia Congestive Heart Failure COPD on home O2 Deep Vein Thrombosis x 2 History of PE Fibromyalgia Headaches RLS Diverticulosis Hypertension History of goiter s/p radiation therapy with subsequent hypothyroidism Prior respiratory failure with intubation Sciatica . Past Surgical History Tonsillectomy Adenoidectomy Cataract surgery BTL . Reported Medications Xanax (Alprazolam) 0.5 Mg Tab 0.5 Mg PO Q8H PRN Enema Disposable (Sodium Phosphates) 1 Micki Micki 1 Applic RECTAL IN AM PRN Dulcolax Supp (Bisacodyl) 10 Mg Supp 10 Mg RECTAL IN AM PRN Citroma Liq (Magnesium Citrate) 300 Ml Liq 296 Ml PO IN AM PRN Acidophilus (Lactobacillus Acidophilus) 1 Each Tablet 1 Tab PO BID Tylenol (Acetaminophen) 325 Mg Tab 650 Mg PO Q4H PRN Milk of Magnesia Liq (Magnesium Hydroxide) 400 Mg/5 Ml Susp 30 Ml PO DAILY PRN Albuterol Neb (Albuterol Sulfate) 2.5 Mg/3 Ml Neb 2.5 Mg NEB Q2HR NEB PRN While awake Ferrous Sulfate DR (Ferrous Sulfate) 325 Mg Tabdr 325 Mg PO TIDAC Eq Mucus ER (Guaifenesin) 600 Mg Tab 600 Mg PO Q12HR Miralax Powder (Polyethylene Glycol 3350 Powder) 1 Pow Pow 17 Gm PO HS Breo Ellipta Inh (Fluticasone/Vilanterol) 100-25 Mcg/Act Inh 1 Puff INH HS Use daily at the same time. Spironolactone 25 Mg Tab 12.5 Mg PO DAILY Gabapentin 600 Mg Tab 600 Mg PO TID . Current Medications Medications (Trade) Dose Ordered Sig/Lili Route Start Time Stop Time Status Last Admin (NS Flush) 2 ml UNSCH PRN IV FLUSH 01/19/17 17:00 (NS Flush) 2 ml BID IV FLUSH 01/19/17 21:00 01/20/17 08:58 (Tylenol) 650 mg Q4H PRN PO 01/19/17 17:00 (Zofran Inj) 4 mg Q6H PRN IVP 01/19/17 17:00 01/20/17 08:54 (Narcan Inj) 0.4 mg UNSCH PRN IV 01/19/17 17:00 (Lynn-Colace) 1 tab BID PO 01/19/17 21:00 01/20/17 08:54 (Milk Of Magnesia Liq) 30 ml Q12H PRN PO 01/19/17 17:00 (Senokot) 17.2 mg Q12H PRN PO 01/19/17 17:00 (Dulcolax Supp) 10 mg DAILY PRN RECTAL 01/19/17 17:00 (Lactulose Liq) 30 ml DAILY PRN PO 01/19/17 17:00 Methylprednisolone Sodium Succinate 60 mg 60 mg Q6H IVP 01/19/17 22:00 01/20/17 08:53 (Levaquin 750 Mg Premix Inj) 150 ml @ 100 mls/hr Q24H IV 01/19/17 18:00 01/19/17 18:02 (Lasix Inj) 20 mg DAILY IV PUSH 01/20/17 09:00 01/20/17 08:58 (Xanax) 0.5 mg Q8H PRN PO 01/19/17 17:15 (Norvasc) 5 mg DAILY PO 01/20/17 09:00 01/20/17 09:08 (Breo Ellipta 100-25 Inh) 1 puff HS INH 01/19/17 21:00 01/19/17 21:23 (Neurontin) 600 mg TID PO 01/19/17 18:00 01/20/17 08:54 (Mucinex Er) 600 mg Q12HR PO 01/19/17 21:00 01/20/17 08:54 (Zyvox) 600 mg Q12HR PO 01/19/17 21:00 01/20/17 08:54 (Lopressor) 50 mg Q12HR PO 01/19/17 21:00 01/20/17 08:54 (Xarelto) 20 mg DAILY PO 01/20/17 09:00 (Aldactone) 12.5 mg DAILY PO 01/20/17 09:00 01/20/17 08:54 (Ferrous Sulfate) 325 mg TIDAC PO 01/20/17 08:00 01/20/17 09:08 (Lactinex) 1 tab BID PO 01/19/17 21:00 01/20/17 08:54 (Pill Splitter) 1 ea UNSCH PRN OTHER 01/19/17 18:00 Family History Patient's mother from pancreatic cancer. Her father in an MVA when the patient was 4 years old. Patient's sister also suffers from COPD, heart disease and hypertension. . Substance Use Tobacco: [id number] history, quit in 2013 Alcohol: Patient reported were EtOH consumption, occasional wine. Prescription med abuse: None known Illicits: None known . Psychosocial History Patient is originally from [place], [place]. Her father in a MVA and when the patient was 4 years old. She has one sister (Madhavi) who lives in [place], [place]. The patient states they are very close. The patient was to her first for 10 years, and her second for approximately 44 years. She is . The patient had 8 children, but 2 are now . (6 living children: 4 daughters and 2 sons) She moved to [place] approximately 17 years ago and is living with her son (Ga). 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 . Spiritual/Cultural Factors Yazidism cherise . Health Care Surrogate: Copy in medical record Date completed: 12/17/2016 . Health Care Surrogate(s): Patient's son (Ga Diaz) is designated as the primary health care surrogate decision maker. The patient has designated her daughter (Mattie Diaz) as the alternate health care surrogate decision maker. . Documented care wishes: No documented care wishes have been completed . Today's verbally stated goals: Patient has experienced an acute decline as evidenced by 7 acute hospitalizations since 01/10/2017; patient stating she wants to go home but defers decision-making to her children at this time. . Family/friends goals: Spoke to patient son/HCS to discuss patient clinical condition and ongoing decline; possible transition to comfort focus care. He would like to speak with his siblings first-tentative family meeting with palliative care later this week. . Ethical and Legal Issues No known ethical or legal issues at this time. . Physical Exam Vital Signs Date Time Temp Pulse Resp B/P Pulse Ox O2 Delivery O2 Flow Rate FiO2 01/20/17 08:31 98 Partial Rebreather 01/20/17 08:23 93 55 01/20/17 07:25 82 15.00 01/20/17 04:00 Partial Non-Rebreather 15.00 01/20/17 03:23 97.8 54 20 124/73 98 01/20/17 00:00 Partial Non-Rebreather 15.00 01/19/17 23:15 97.4 50 22 128/71 93 01/19/17 22:00 52 01/19/17 21:07 92 Partial Rebreather 15.00 01/19/17 20:00 Partial Non-Rebreather 15.00 01/19/17 19:58 97.8 64 33 134/72 92 01/19/17 19:00 63 01/19/17 17:11 58 14 132/66 92 Partial Rebreather 15 01/19/17 15:56 57 14 127/61 92 Partial Rebreather 15 01/19/17 14:50 97.9 59 16 135/67 92 Non-Rebreather 01/19/17 14:47 92 Non-Rebreather 15.00 01/19/17 14:43 97.9 59 16 135/67 91 . 01/19/17 01/20/17 18:59 06:59 Intake Total 50 ml Output Total 900 ml Balance -850 ml Intake Oral 50 ml Output Urine Total 900 ml # Voids 3 # Bowel Movements 0 . Exam CONSTITUTIONAL/GENERAL: This is an adequately nourished patient in moderate respiratory distress. TUBES/LINES/DRAINS: PIV 1 SKIN: No jaundice, rashes, or lesions. Ecchymoses on upper extremities. No wounds seen anteriorly. Skin temperature appropriate. Not diaphoretic. HEAD: Atraumatic. Normocephalic. EYES: Pupils equal and round and reactive. Extraocular motions intact. No scleral icterus. No injection or drainage. Fundi not examined. ENT: Hearing grossly normal. Nose without bleeding or purulent drainage. NECK: Trachea midline. Supple, nontender. No palpable thyroid enlargement or nodularity. CARDIOVASCULAR: Regular rate and rhythm without murmurs, gallops, or rubs. No JVD. Peripheral pulses symmetric. RESPIRATORY/CHEST: Appears short of breath with conversation, pursed lip breathing, accessory muscle use. Breath sounds diminished bilaterally. GASTROINTESTINAL: Abdomen soft, non-tender, nondistended. No guarding. Bowel sounds present. GENITOURINARY: Without palpable bladder distension. MUSCULOSKELETAL: Extremities without clubbing, cyanosis, or edema. Muscle atrophy and bilateral lower extremities LYMPHATICS: No palpable cervical or supraclavicular adenopathy. NEUROLOGICAL: Awake and alert. Follows commands. Cognitively sharp at time of exam but lethargic. Moves all extremities. PSYCHIATRIC: No obvious anxiety/depression. no apparent hallucinations or other psychotic thought process. Diagnostic Tests Laboratory Laboratory Tests Test 01/19/17 01/19/17 01/20/17 01/20/17 14:55 21:19 05:57 08:30 White Blood Count 10.9 TH/MM3 9.1 TH/MM3 (4.0-11.0) (4.0-11.0) Red Blood Count 3.24 MIL/MM3 3.11 MIL/MM3 (4.00-5.30) (4.00-5.30) Hemoglobin 10.4 GM/DL 10.0 GM/DL (11.6-15.3) (11.6-15.3) Hematocrit 31.6 % 29.9 % (35.0-46.0) (35.0-46.0) Mean Corpuscular Volume 97.3 FL 96.2 FL (80.0-100.0) (80.0-100.0) Mean Corpuscular Hemoglobin 32.1 PG 32.2 PG (27.0-34.0) (27.0-34.0) Mean Corpuscular Hemoglobin 33.0 % 33.5 % Concent (32.0-36.0) (32.0-36.0) Red Cell Distribution Width 15.9 % 16.0 % (11.6-17.2) (11.6-17.2) Platelet Count 259 TH/MM3 262 TH/MM3 (150-450) (150-450) Mean Platelet Volume 8.6 FL 8.2 FL (7.0-11.0) (7.0-11.0) Neutrophils (%) (Auto) 85.1 % 87.8 % (16.0-70.0) (16.0-70.0) Lymphocytes (%) (Auto) 10.9 % 10.8 % (9.0-44.0) (9.0-44.0) Monocytes (%) (Auto) 3.5 % (0.0-8.0) 1.1 % (0.0-8.0) Eosinophils (%) (Auto) 0.1 % (0.0-4.0) 0.0 % (0.0-4.0) Basophils (%) (Auto) 0.4 % (0.0-2.0) 0.3 % (0.0-2.0) Neutrophils # (Auto) 9.3 TH/MM3 8.0 TH/MM3 (1.8-7.7) (1.8-7.7) Lymphocytes # (Auto) 1.2 TH/MM3 1.0 TH/MM3 (1.0-4.8) (1.0-4.8) Monocytes # (Auto) 0.4 TH/MM3 0.1 TH/MM3 (0-0.9) (0-0.9) Eosinophils # (Auto) 0.0 TH/MM3 0.0 TH/MM3 (0-0.4) (0-0.4) Basophils # (Auto) 0.0 TH/MM3 0.0 TH/MM3 (0-0.2) (0-0.2) CBC Comment DIFF FINAL DIFF FINAL Differential Comment Prothrombin Time 13.6 SEC (9.8-11.6) Prothromb Time International 1.2 RATIO Ratio Activated Partial 34.0 SEC Thromboplast Time (24.3-30.1) Sodium Level 134 MEQ/L 135 MEQ/L (136-145) (136-145) Potassium Level 4.8 MEQ/L 4.7 MEQ/L (3.5-5.1) (3.5-5.1) Chloride Level 91 MEQ/L 88 MEQ/L (98-107) (98-107) Carbon Dioxide Level 37.3 MEQ/L 38.4 MEQ/L (21.0-32.0) (21.0-32.0) Anion Gap 6 MEQ/L (5-15) 9 MEQ/L (5-15) Blood Urea Nitrogen 25 MG/DL (7-18) 35 MG/DL (7-18) Creatinine 1.14 MG/DL 1.27 MG/DL (0.50-1.00) (0.50-1.00) Estimat Glomerular Filtration 46 ML/MIN (>89) 41 ML/MIN (>89) Rate Random Glucose 157 MG/DL 146 MG/DL (74-106) (74-106) Calcium Level 10.0 MG/DL 9.4 MG/DL (8.5-10.1) (8.5-10.1) Magnesium Level 2.1 MG/DL (1.5-2.5) Total Creatine Kinase 35 U/L (26-192) 20 U/L (26-192) 31 U/L (26-192) Troponin I 0.02 NG/ML 0.02 NG/ML 0.02 NG/ML (0.02-0.05) (0.02-0.05) (0.02-0.05) B-Type Natriuretic Peptide 164 PG/ML (0-100) Total Bilirubin 0.4 MG/DL (0.2-1.0) Aspartate Amino Transf 20 U/L (15-37) (AST/SGOT) Alanine Aminotransferase 17 U/L (10-53) (ALT/SGPT) Alkaline Phosphatase 35 U/L (45-117) Total Protein 6.2 GM/DL (6.4-8.2) Albumin 2.6 GM/DL (3.4-5.0) Urine Color YELLOW (YELLW/STRAW) Urine Turbidity HAZY (CLEAR) Urine pH 5.0 (5.0-8.5) Urine Specific [place] 1.020 (1.002-1.035) Urine Protein TRACE mg/dL (NEG-TRACE) Urine Glucose (UA) NEG mg/dL (NEG) Urine Ketones NEG mg/dL (NEG) Urine Occult Blood NEG (NEG) Urine Nitrite NEG (NEG) Urine Bilirubin NEG (NEG) Urine Urobilinogen LESS THAN 2.0 MG/DL (LESS THAN 2.0) Urine Leukocyte Esterase MOD (NEG) Urine WBC 7 /hpf (0-5) Urine Squamous Epithelial <1 /hpf (0-5) Cells Urine Transitional Epithelial <1 /hpf (NONE) Cells Urine Bacteria RARE /hpf (NONE) Urine Hyaline Casts 5 /lpf (RARE) Urine Mucus FEW /lpf (OCC) Urine Yeast with Hyphae FEW (NONE) Urine Yeast (Budding) FEW (NONE) Microscopic Urinalysis Comment CATH-CULTURE IND Result Diagram: 01/20/17 0557 01/20/17 0557 Microbiology Microbiology Date/Time Procedure Status Source Growth 01/19/17 14:45 Aerobic Blood Culture - Preliminary Resulted Blood Peripheral NO GROWTH IN 1 DAY 01/19/17 14:45 Anaerobic Blood Culture - Preliminary Resulted Blood Peripheral NO GROWTH IN 1 DAY 01/19/17 14:55 Aerobic Blood Culture - Preliminary Resulted Blood Peripheral NO GROWTH IN 1 DAY 01/19/17 14:55 Anaerobic Blood Culture - Preliminary Resulted Blood Peripheral NO GROWTH IN 1 DAY 01/19/17 18:15 Influenza Types A,B Antigen (CHANTAL) - Final Complete Nasal Washing NEGATIVE FOR FLU A AND B ANTIGEN.... 01/20/17 08:30 Urine Culture Received Urine Catheterized Urine Pending Patient/Family Conference Issues Discussed: * Palliative care role, purpose, approach * Additional medical, psychosocial, and spiritual history * Patients general health, functional status, and cognitive changes in the months leading up to the current hospitalization * Patient/family understanding of the current medical problems * Patient/family understanding of prognosis * Patients goals of care as best understood from advance directives and/or conversations and/or values * Current medical treatment options and benefits/burdens of those options * Likely scenarios comparing ongoing aggressive care with a transition to comfort measures only * Questions answered to the best of my ability * Palliative care contact information provided Assessment and Plan Disease Oriented Problem List: (1) Acute exacerbation of congestive heart failure Symptom Scale: (1) Debility (2) Dyspnea (3) Confusion Pertinent Non-Medical Issues Psychosocial: Patient is originally from [place], [place]. Her father in a MVA and when the patient was 4 years old. She has one sister (Madhavi) who lives in [place], [place]. The patient states they are very close. The patient was to her first for 10 years, and her second for approximately 44 years. She is . The patient had 8 children, but 2 are now . (6 living children: 4 daughters and 2 sons) She moved to [place] approximately 17 years ago and is living with her son (Ga). 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 Spiritual: Yazidism cherise Legal: Patient's son (Ga Diaz) is designated as the primary health care surrogate decision maker. The patient has designated her daughter (Mattie Diaz ) as the alternate health care surrogate decision maker. Ethical issues impacting care: No known ethical issues impacting care at this time . Important Contacts Ga Diaz son: [phone] Mattie Diaz, daughter: [phone] . Prognosis Patient has experienced an acute decline as evidenced by 7 acute hospitalizations since 01/10/2017 with COPD exacerbations and respiratory failure requiring intubation; during last admission treated for + MRSA PNA. The length of time between readmission is becoming less and less. Patient is reporting increased weakness/fatigue, decreased appetite with associated weight loss and progressively worsening shortness of breath. Given patient's advanced age, end-stage disease processes, acute decline in functional status and multiple acute hospitalizations within a short period of time, this patient's overall prognosis is poor. Patient is hospice appropriate if/when her medical treatment goals become comfort oriented. . Code Status: Full Code Plan * FULL CODE * Decision-making: Patient son (Ga Diaz) is designated as the health care surrogate decision maker. The patient has designated her daughter (Mattie Diaz ) as the alternate health care surrogate decision maker. Patient deferring decision-making to her children on 01/20/2017. * Patient has experienced an acute decline as evidenced by 7 acute hospitalizations since 09/10/2016 with COPD exacerbations and respiratory failure requiring intubation; during last admission treated for + MRSA PNA. The length of time between readmission is becoming less and less. Patient is reporting increased weakness/fatigue, decreased appetite with associated weight loss and progressively worsening shortness of breath. Given patient's advanced age, end-stage disease processes, acute decline in functional status and multiple acute hospitalizations within a short period of time, this patient's overall prognosis is poor. Patient is hospice appropriate if/when her medical treatment goals become comfort oriented. * Goals: AGGRESSIVE GOALS-pending further discussions with patient/family. * Symptom managementdyspnea: FiO2 55% on partial rebreather with oxygen saturation in the mid 90s; patient having dyspnea at rest and with conversation. 01/20/17: Stable chest x-ray with underinflation and bibasilar opacities representing either atelectasis or consolidation. Treated for + MRSA PNA during last hospitalization /-remains on IV anabiotic's. CONTACT AND DROPLET PRECAUTIONS. * Symptom managementconfusion: Patient is currently oriented to person place time and situation, intermittent confusion likely secondary to hypoxia. * Discussed with patient's nurse (Adrienne) and Dr. Kennedy. * Palliative care also spoke to the son/HCS (Ga), discussed the patient's clinical condition and ongoing decline. Ga verbalizes understanding that his mother has an end-stage condition. He would like to speak with his siblings first-tentative family meeting with palliative care later this week. * Palliative care contact information was given to both the patient and the patient's son. * Palliative care will continue to follow this patient throughout her hospitalization to establish trust, assist with symptom management and clarification of medical treatment goals. . Thank you for the opportunity to participate in the care of Ms. Diaz. Mely Driver Jan 20, 2017 12:09
--- NOTE | 2017-01-20 13:41 | EKG ---
Date Performed: 01/19/2017 Time Performed: 22:38:43 PTAGE: 76 years EKG: SINUS BRADYCARDIA WITH SINUS ARRHYTHMIA MARKED LEFT AXIS DEVIATION RIGHT BUNDLE BRANCH BLOC K MODERATE T-WAVE ABNORMALITY, CONSIDER LATERAL ISCHEMIA Since previous tracing, no significant pool e noted ABNORMAL ECG PREVIOUS TRACING : 01/19/2017 15.34 DOCTOR: Yeison Zimmerman Interpretating Date/Time 01/20/2017 13:40:39
--- NOTE | 2017-01-20 13:41 | EKG ---
Date Performed: 01/20/2017 Time Performed: 03:06:42 PTAGE: 76 years EKG: Possible atrial flutter Left axis deviation RBBB with left anterior fascicular block Inferi or/lateral T wave changes may be due to myocardial ischemia Since previous tracing, no significant ch philip noted Abnormal ECG PREVIOUS TRACING : 01/19/2017 22.38 DOCTOR: Yeison Zimmerman Interpretating Date/Time 01/20/2017 13:40:20
--- NOTE | 2017-01-20 13:42 | EKG ---
Date Performed: 01/19/2017 Time Performed: 15:34:06 PTAGE: 76 years EKG: SINUS BRADYCARDIA MARKED LEFT AXIS DEVIATION RIGHT BUNDLE BRANCH BLOCK Since previous smith ng, no significant change noted ABNORMAL ECG PREVIOUS TRACING : 01/05/2017 16.59 DOCTOR: Yeison Zimmerman Interpretating Date/Time 01/20/2017 13:40:57
[2017-01-20] MEDS: ALPRAZolam 0.5 MG TAB PO PRN ×2 (13:50→23:49)
--- NOTE | 2017-01-20 19:26 | HHI.PR ---
Subjective Remarks 76 YOWF with Ch RF, COPD exac On PRB No fever Appetite poor. Objective Vital Signs Vital Signs Date Time Temp Pulse Resp B/P Pulse Ox O2 Delivery O2 Flow Rate FiO2 01/20/17 18:00 98.0 60 19 136/71 94 01/20/17 13:09 98.1 60 19 110/58 94 01/20/17 12:00 98.1 60 19 110/58 94 01/20/17 08:31 98 Partial Rebreather 01/20/17 08:23 93 55 01/20/17 07:25 82 15.00 01/20/17 04:00 Partial Non-Rebreather 15.00 01/20/17 03:23 97.8 54 20 124/73 98 01/20/17 00:00 Partial Non-Rebreather 15.00 01/19/17 23:15 97.4 50 22 128/71 93 01/19/17 22:00 52 01/19/17 21:07 92 Partial Rebreather 15.00 01/19/17 20:00 Partial Non-Rebreather 15.00 01/19/17 19:58 97.8 64 33 134/72 92 I/O 01/19/17 01/19/17 01/19/17 01/20/17 01/20/17 01/20/17 07:00 15:00 23:00 07:00 15:00 23:00 Intake Total 50 ml 0 ml 380 ml Output Total 600 ml 300 ml 320 ml Balance -550 ml -300 ml 60 ml Intake Oral 50 ml 0 ml 380 ml Output Urine Total 600 ml 300 ml 320 ml # Voids 3 # Bowel Movements 0 0 0 Result Diagram: 01/20/17 0557 01/20/17 0557 Objective Remarks GENERAL: MBMN WF, sob SKIN: Warm and dry. HEAD: Normocephalic. EYES: No scleral icterus. No injection or drainage. NECK: Supple, trachea midline. No JVD or lymphadenopathy. CARDIOVASCULAR: Regular rate and rhythm without murmurs, gallops, or rubs. RESPIRATORY: Breath sounds equal bilaterally. No accessory muscle use. Exp rhonchi GASTROINTESTINAL: Abdomen soft, non-tender, nondistended. MUSCULOSKELETAL: No cyanosis, or edema. BACK: Nontender without obvious deformity. No CVA tenderness. A/P Assessment and Plan Acute on Ch. RF Hypoxia COPD Exac Lung infilt DVT, PE PLAN: DW Pt , wants to remain Full code cont PRB CPAP at night and prn IV Solumedrol Aerosol nebs Abx Levaquin and Zyvox ID Consulted. Arvind Cummings MD Jan 20, 2017 19:26
--- NOTE | 2017-01-20 20:49 | PD.ID.CON ---
History of Present Illness Service ID Consult Requested By Reason for Consult Evaluation and Mment of MRSA pneumonia. Primary Care Physician Fernanda Fox MD Diagnoses: History of Present Illness Ms. Diaz is a 76 year CF patient with a past medical history which includes Arthritis, Chronic anticoagulation with Xarelto, High Cholesterol, Congestive Heart Failure, COPD on home 4 L O2 at home, Deep Vein Thrombosis x2, Fibromyalgia, Headaches, Hypertension and Thyroid Disease, Obesity (BMI 24.9). Patient has had 7 admissions this calender year. Most recent admission 2016 to 01/14/2017 for acute respiratory failure secondary to sputum positive MRSA pneumonia requiring ICU admission and intubation. Patient presents to the ER via [facility] from the [facility] secondary to, "my COPD," "got real bad about 1 o'clock." Per ER triage note patient patient's SPO2 on room air 67%. Patient is on partial rebreather during interview and only able to speak a few words at a time due to SOB. Information gathered from patient as well as prior computerized charting. Patient reports that she was doing well yesterday and then today her shortness of breath got much worse today around 1300. Shortness of breath worse with talking. Shortness of breath not relieved by nebulizers. Denies fevers, chills, cough, chest pain, N/V/D/C. Patient reports cough with yellow sputum over last 2 days prior to admission. Reports breathing better slightly. No fever or chills. No diarrhea No rash ID consulted for MRSA pneumonia. Review of Systems ROS Limitations: Poor Historian Past Family Social History Allergies: Coded Allergies: Azithromycin (Verified Allergy, Severe, STOMACH CRAMPS, 01/05/17) Penicillin (Verified Allergy, Severe, 01/05/17) *MDRO Multi-Drug Resistant Organism (Verified Adverse Reaction, Unknown, ) MRSA PCR + 01/05/17 MRSA (sputum) 01/06/17 Past Medical History Arthritis Chronic anticoagulation with Xarelto High Cholesterol: Congestive Heart Failure COPD on home O2 Deep Vein Thrombosis x2 Fibromyalgia Headaches Hypertension Thyroid Disease Past Surgical History Cataracts Tubal ligation Tonsillectomy Reported Medications Reported Meds & Active Scripts Active Zyvox (Linezolid) 600 Mg Tab 600 Mg PO Q12HR Oxycodone-Acetaminophen 10-325 mg Tab 1 Tab PO Q6H PRN DO NOT USE THIS MEDICINE IF YOU WILL DRIVE A CAR OR USE A MACHINE, ONLY USE IT WHEN RESTING AT HOME. Metoprolol Tartrate 25 Mg Tab 50 Mg PO Q12HR Furosemide 20 Mg Tab 20 Mg PO DAILY Xarelto (Rivaroxaban) 20 Mg Tab 20 Mg PO DAILY Norvasc (Amlodipine Besylate) 5 Mg Tab 5 Mg PO DAILY Duoneb (Ipratropium-Albuterol Neb) 0.5-2.5 Mg/3 Ml Neb 1 Ampule NEB Q4HR NEB 30 Days Reported Xanax (Alprazolam) 0.5 Mg Tab 0.5 Mg PO Q8H PRN Enema Disposable (Sodium Phosphates) 1 Micki Micki 1 Applic RECTAL IN AM PRN Dulcolax Supp (Bisacodyl) 10 Mg Supp 10 Mg RECTAL IN AM PRN Citroma Liq (Magnesium Citrate) 300 Ml Liq 296 Ml PO IN AM PRN Acidophilus (Lactobacillus Acidophilus) 1 Each Tablet 1 Tab PO BID Tylenol (Acetaminophen) 325 Mg Tab 650 Mg PO Q4H PRN Milk of Magnesia Liq (Magnesium Hydroxide) 400 Mg/5 Ml Susp 30 Ml PO DAILY PRN Albuterol Neb (Albuterol Sulfate) 2.5 Mg/3 Ml Neb 2.5 Mg NEB Q2HR NEB PRN While awake Ferrous Sulfate DR (Ferrous Sulfate) 325 Mg Tabdr 325 Mg PO TIDAC Eq Mucus ER (Guaifenesin) 600 Mg Tab 600 Mg PO Q12HR Miralax Powder (Polyethylene Glycol 3350 Powder) 1 Pow Pow 17 Gm PO HS Breo Ellipta Inh (Fluticasone/Vilanterol) 100-25 Mcg/Act Inh 1 Puff INH HS Use daily at the same time. Spironolactone 25 Mg Tab 12.5 Mg PO DAILY Gabapentin 600 Mg Tab 600 Mg PO TID Active Ordered Medications Current Medications Medications (Trade) Dose Ordered Sig/Lili Route Start Time Stop Time Status Last Admin (NS Flush) 2 ml UNSCH PRN IV FLUSH 01/19/17 17:00 (NS Flush) 2 ml BID IV FLUSH 01/19/17 21:00 01/20/17 20:01 (Tylenol) 650 mg Q4H PRN PO 01/19/17 17:00 (Zofran Inj) 4 mg Q6H PRN IVP 01/19/17 17:00 01/20/17 08:54 (Narcan Inj) 0.4 mg UNSCH PRN IV 01/19/17 17:00 (Lynn-Colace) 1 tab BID PO 01/19/17 21:00 01/20/17 19:59 (Milk Of Magnesia Liq) 30 ml Q12H PRN PO 01/19/17 17:00 (Senokot) 17.2 mg Q12H PRN PO 01/19/17 17:00 (Dulcolax Supp) 10 mg DAILY PRN RECTAL 01/19/17 17:00 (Lactulose Liq) 30 ml DAILY PRN PO 01/19/17 17:00 (SoluMEDROL INJ) 60 mg Q6H IVP 01/19/17 22:00 01/20/17 16:00 (Lasix Inj) 20 mg DAILY IV PUSH 01/20/17 09:00 01/20/17 08:58 (Xanax) 0.5 mg Q8H PRN PO 01/19/17 17:15 01/20/17 13:50 (Norvasc) 5 mg DAILY PO 01/20/17 09:00 01/20/17 09:08 (Breo Ellipta 100-25 Inh) 1 puff HS INH 01/19/17 21:00 01/19/17 21:23 (Mucinex Er) 600 mg Q12HR PO 01/19/17 21:00 01/20/17 19:59 (Zyvox) 600 mg Q12HR PO 01/19/17 21:00 01/20/17 20:00 (Lopressor) 50 mg Q12HR PO 01/19/17 21:00 01/20/17 20:00 (Xarelto) 20 mg DAILY PO 01/20/17 09:00 (Aldactone) 12.5 mg DAILY PO 01/20/17 09:00 01/20/17 08:54 (Ferrous Sulfate) 325 mg TIDAC PO 01/20/17 08:00 01/20/17 17:00 (Lactinex) 1 tab BID PO 01/19/17 21:00 01/20/17 19:59 (Pill Splitter) 1 ea UNSCH PRN OTHER 01/19/17 18:00 (Neurontin) 600 mg BID PO 01/20/17 21:00 01/20/17 20:00 (Levaquin) 750 mg Q48H PO 01/20/17 21:00 Miscellaneous Information Patient in critical care unit? Ass... [id number] .XX 01/20/17 21:00 (Chlorhexidine 2% Cloth) 3 pack DAILY@04 TOPICAL 01/21/17 04:00 01/25/17 04:01 (Chlorhexidine 2% Cloth) 3 pack UNSCH PRN TOPICAL 01/20/17 21:00 01/25/17 20:47 Family History No family history of early coronary artery disease, DM or cancer Social History Lives in SNF Alcohol Use: No Tobacco Use: No (quit 2014 smoked 1 ppd cigs for 57 yrs) Substance Use: No Physical Exam Vital Signs Vital Signs Date Time Temp Pulse Resp B/P Pulse Ox O2 Delivery O2 Flow Rate FiO2 01/20/17 20:22 96 Partial Rebreather 12.00 01/20/17 18:00 98.0 60 19 136/71 94 01/20/17 13:09 98.1 60 19 110/58 94 01/20/17 12:00 98.1 60 19 110/58 94 01/20/17 08:31 98 Partial Rebreather 01/20/17 08:23 93 55 01/20/17 07:25 82 15.00 01/20/17 04:00 Partial Non-Rebreather 15.00 01/20/17 03:23 97.8 54 20 124/73 98 01/20/17 00:00 Partial Non-Rebreather 15.00 01/19/17 23:15 97.4 50 22 128/71 93 01/19/17 22:00 52 01/19/17 21:07 92 Partial Rebreather 15.00 Physical Exam GENERAL: Obese, well-developed patient, in no apparent distress. SKIN: No rashes, ecchymoses or lesions. Cool and dry. HEAD: Atraumatic. Normocephalic. No temporal or scalp tenderness. EYES: Pupils equal round and reactive. Extraocular motions intact. No scleral icterus. No injection or drainage. ENT: Nose without bleeding, purulent drainage or septal hematoma. Throat without erythema, tonsillar hypertrophy or exudate. Uvula midline. Airway patent. Voice coarse (chronic per son) NECK: Trachea midline. Supple, nontender, no meningeal signs. CARDIOVASCULAR: Regular rate and rhythm without murmurs. RESPIRATORY: Basilar crackles. decreased air entry noted. GASTROINTESTINAL: Abdomen soft, non-tender, nondistended. MUSCULOSKELETAL: Extremities without clubbing, cyanosis, or edema. NEUROLOGICAL: Awake and alert. Grossly non focal Psych cooperative IV line sites with no e.o infection. Laboratory Laboratory Tests Test 01/19/17 01/20/17 01/20/17 01/20/17 21:19 05:57 08:30 17:20 Total Creatine Kinase 20 31 Troponin I 0.02 0.02 White Blood Count 9.1 Red Blood Count 3.11 Hemoglobin 10.0 Hematocrit 29.9 Mean Corpuscular Volume 96.2 Mean Corpuscular Hemoglobin 32.2 Mean Corpuscular Hemoglobin 33.5 Concent Red Cell Distribution Width 16.0 Platelet Count 262 Mean Platelet Volume 8.2 Neutrophils (%) (Auto) 87.8 Lymphocytes (%) (Auto) 10.8 Monocytes (%) (Auto) 1.1 Eosinophils (%) (Auto) 0.0 Basophils (%) (Auto) 0.3 Neutrophils # (Auto) 8.0 Lymphocytes # (Auto) 1.0 Monocytes # (Auto) 0.1 Eosinophils # (Auto) 0.0 Basophils # (Auto) 0.0 CBC Comment DIFF FINAL Differential Comment Sodium Level 135 Potassium Level 4.7 Chloride Level 88 Carbon Dioxide Level 38.4 Anion Gap 9 Blood Urea Nitrogen 35 Creatinine 1.27 Estimat Glomerular Filtration 41 Rate Random Glucose 146 Calcium Level 9.4 Total Bilirubin 0.4 Aspartate Amino Transf 20 (AST/SGOT) Alanine Aminotransferase 17 (ALT/SGPT) Alkaline Phosphatase 35 Total Protein 6.2 Albumin 2.6 Urine Color YELLOW Urine Turbidity HAZY Urine pH 5.0 Urine Specific [place] 1.020 Urine Protein TRACE Urine Glucose (UA) NEG Urine Ketones NEG Urine Occult Blood NEG Urine Nitrite NEG Urine Bilirubin NEG Urine Urobilinogen LESS THAN 2.0 Urine Leukocyte Esterase MOD Urine WBC 7 Urine Squamous Epithelial <1 Cells Urine Transitional Epithelial <1 Cells Urine Bacteria RARE Urine Hyaline Casts 5 Urine Mucus FEW Urine Yeast with Hyphae FEW Urine Yeast (Budding) FEW Microscopic Urinalysis Comment CATH-CULTURE IND Blood Gas Puncture Site RT RADIAL Blood Gas Patient Temperature 98.6 Blood Gas HCO3 40 Blood Gas Base Excess 14.9 Blood Gas Oxygen Saturation 89 Arterial Blood pH 7.46 Arterial Blood Partial 57 Pressure CO2 Arterial Blood Partial 53 Pressure O2 Arterial Blood Oxygen Content 12.5 Arterial Blood 1.5 Carboxyhemoglobin Arterial Blood Methemoglobin 0.5 Blood Gas Hemoglobin 10.0 Oxygen Delivery Device Non-Rebreathing Mask Blood Gas Liter Flow 185 Blood Gas Inspired Oxygen 15 Date/Time Procedure Status Source Growth 01/20/17 08:30 Urine Culture Received Urine Catheterized Urine Pending 01/19/17 18:15 Influenza Types A,B Antigen (CHANTAL) - Final Complete Nasal Washing NEGATIVE FOR FLU A AND B ANTIGEN.... 01/19/17 14:55 Aerobic Blood Culture - Preliminary Resulted Blood Peripheral NO GROWTH IN 1 DAY 01/19/17 14:55 Anaerobic Blood Culture - Preliminary Resulted Blood Peripheral NO GROWTH IN 1 DAY Result Diagram: 01/20/17 0557 01/20/17 0557 Imaging Last Impressions Chest X-Ray 01/20/17 0000 Signed Impressions: Service Date/Time: Friday, January 20, 2017 07:42 - CONCLUSION: Stable chest x-ray was underinflation and bibasilar opacity representing either atelectasis or consolidation. Jasper Head MD Assessment and Plan Assessment and Plan Possible CAP with component MRSA pneumonia or tracheobronchitis. Acute COPD exacerbation Multiple admissions to hospital (approx 7 this calendar year) Obesity Recs Continue Levaquin ok to change to oral (stop date entered: 5 days) Continue Zyvox oral (stop date entered: 5 days) Follow clinically Follow cultures d/w pt and son in room. Will sign off please call back if any change in clinical condition or questions. Denisse Back MD Jan 20, 2017 20:49
[2017-01-20] MEDS ORDERED: LEVOFLOXACIN 750 MG TAB PO SCH (21:00)
[2017-01-20] MEDS ORDERED: CHLORHEXIDINE GLUCONATE 2 % 1 PACK (2 CLOTHS)(extra cloths) TOPICAL PRN (21:00)
[2017-01-20] MEDS: FLUTICASONE 100 MCG/VILANTEROL 25 MCG INHALER INH SCH (21:42)
[2017-01-21] VITALS (40 sets, daily range): BP systolic 101–138; BP diastolic 54–82; PULSE 46–96; RESP 18–50; TEMP 98.1–99; O2SAT 84–100
[2017-01-21] MEDS: RESP: ALBUTEROL 2.5 MG/IPRATROPIUM 0.5 MG NEB (SCH) INH ×4 (03:59→21:19)
[2017-01-21] MEDS: CHLORHEXIDINE GLUCONATE 2 % 1 PACK (2 CLOTHS)(taper/protocol) TOPICAL SCH (04:00)
[2017-01-21] MEDS: methylPREDNISolone SOD SUCC 125 MG/2 ML VIAL IVP SCH ×4 (04:05→20:44)
[2017-01-21 07:55] LABS: POTASSIUM 4.2 MEQ/L (3.5-5.1)
[2017-01-21 08:01] LABS: AUTOMATED NEUTROPHIL # 7.8 TH/MM3 (1.8-7.7); BASOPHIL % 0.5 % (0.0-2.0); HEMATOCRIT 33.1 % (35.0-46.0); HEMO FLAGS DIFF FINAL; LYMPH % 8.3 % (9.0-44.0); LYMPHOCYTE # 0.7 TH/MM3 (1.0-4.8); MEAN CELL VOLUME 96.9 FL (80.0-100.0); MEAN CORPUSCULAR HEMOGLOBIN 32.2 PG (27.0-34.0); MEAN CORPUSCULAR HGB CONC 33.3 % (32.0-36.0); MONO % 2.5 % (0.0-8.0); NEUT % 88.7 % (16.0-70.0); PLATELET COUNT 252 TH/MM3 (150-450); RED BLOOD COUNT 3.41 MIL/MM3 (4.00-5.30); RED CELL DISTRIBUTION WIDTH 16.4 % (11.6-17.2); WHITE BLOOD COUNT 8.7 TH/MM3 (4.0-11.0)
[2017-01-21] MEDS: FERROUS SULFATE 325 MG (65 MG ELEMENTAL IRON) TAB PO SCH ×3 (08:45→14:59)
[2017-01-21] MEDS: LACTOBACILLUS ACIDOPHILUS TAB PO SCH ×2 (08:45→20:02)
[2017-01-21] MEDS: DOCUSATE SODIUM 50 MG/SENNA 8.6 MG TAB PO SCH ×2 (08:45→20:02)
[2017-01-21] MEDS: guaiFENesin E.R. 600 MG TAB PO SCH ×2 (08:45→20:02)
[2017-01-21] MEDS: GABAPENTIN 300 MG CAP PO SCH ×2 (08:45→20:02)
[2017-01-21] MEDS: METOPROLOL TARTRATE 50 MG TAB PO SCH ×2 (08:45→20:02)
[2017-01-21] MEDS: amLODIPine BESYLATE 5 MG TAB PO SCH (08:45)
[2017-01-21] MEDS: RIVAROXABAN 20 MG TAB PO SCH (08:46)
[2017-01-21] MEDS: LINEZOLID 600 MG TAB PO SCH ×2 (08:46→20:02)
[2017-01-21] MEDS: SPIRONOLACTONE 25 MG TAB PO SCH (08:46)
[2017-01-21] MEDS: SODIUM CHLORIDE 0.9% FLUSH 10 ML FLUSH IV FLUSH SCH ×2 (08:47→20:02)
[2017-01-21] MEDS: FUROSEMIDE 20 MG/2 ML VIAL IV PUSH SCH (08:47)
--- NOTE | 2017-01-21 09:01 | HHI.PR ---
Subjective Remarks Follow-up COPD, respiratory failure, anxiety. Patient states that she can't breathe. She is very anxious. She is confused. She asks if she should go to the hospital soon, even after being reminded that she is already in the hospital. Objective Vitals Vital Signs Date Time Temp Pulse Resp B/P Pulse Ox O2 Delivery O2 Flow Rate FiO2 01/21/17 07:00 Partial Non-Rebreather 15.00 01/21/17 06:00 77 01/21/17 04:00 98.7 54 20 110/61 97 01/21/17 04:00 54 01/21/17 02:00 53 01/21/17 00:00 98.6 53 18 134/65 96 01/20/17 20:22 96 Partial Rebreather 12.00 01/20/17 20:00 98.4 66 18 142/63 89 01/20/17 19:00 Partial Non-Rebreather 15.00 01/20/17 18:00 98.0 60 19 136/71 94 01/20/17 13:09 98.1 60 19 110/58 94 01/20/17 12:00 98.1 60 19 110/58 94 I/O 01/20/17 01/20/17 01/20/17 01/21/17 01/21/17 01/21/17 07:00 15:00 23:00 07:00 15:00 23:00 Intake Total 0 ml 380 ml 300 ml 0 ml Output Total 300 ml 320 ml 400 ml 400 ml Balance -300 ml 60 ml -100 ml -400 ml Intake Oral 0 ml 380 ml 300 ml 0 ml IV Total 0 ml 0 ml Output Urine Total 300 ml 320 ml 400 ml 400 ml # Bowel Movements 0 0 0 0 Result Diagram: 01/21/17 0654 01/21/17 0654 Imaging Last Impressions Chest X-Ray 01/20/17 0000 Signed Impressions: Service Date/Time: Friday, January 20, 2017 07:42 - CONCLUSION: Stable chest x-ray was underinflation and bibasilar opacity representing either atelectasis or consolidation. Jasper Head MD Objective Remarks General: Elderly female in no acute distress. Appears older than stated age. On nonrebreather mask. Heart: Regular rate and rhythm. No murmur. Lungs: Scattered rhonchi. Breathing is nonlabored. Abdomen: Soft, nontender, nondistended. Extremities: No lower extremity edema. SCDs. Psych: Alert, anxious, confused. Procedures None Urinary Catheter: Yes Assessment to: Continue Fuentes insert reason: Measure Accurate Output Vascular Central Line Catheter: No A/P Problem List: (1) Acute respiratory failure with hypoxia and hypercapnia ICD Code: J96.01 Status: Acute (2) COPD exacerbation ICD Code: J44.1 Status: Acute (3) Acute exacerbation of congestive heart failure ICD Code: I50.9 Status: Acute Assessment and Plan 1. Acute respiratory failure with hypoxia and hypercapnia: Appreciate pulmonology recommendations. Secondary to COPD, CHF exacerbation. Continue IV steroids, bronchodilators, supplemental oxygen. BiPAP as needed. Currently on nonrebreather. 2. Pneumonia: Continue Levaquin, Zyvox. Patient had MRSA in sputum on 01/06/17. Appreciate infectious disease recommendations. Contact/droplet isolation. 3. Acute exacerbation of chronic diastolic CHF: Continue metoprolol, Lasix, spironolactone. Echo 12/05/16 showed EF 65-70% with grade 1 diastolic dysfunction. 4. History of DVT: Continue Xarelto. 5. Peripheral neuropathy: Continue gabapentin. 6. GI prophylaxis: Protonix. 7. CODE STATUS: Full code. 8. Appreciate palliative care assistance. Possible family meeting later this week to discuss goals of care. Problem Qualifiers (1) Acute exacerbation of congestive heart failure: Qualified Code: I50.33 - Acute on chronic diastolic congestive heart failure Geoff Kennedy MD Jan 21, 2017 09:00
--- NOTE | 2017-01-21 11:51 | HHI.HCPN ---
Spoke with patient's son and the designated health care surrogate (Ga Diaz) on 01/20/2017 to provide a clinical update and discuss the patient's ongoing decline. She has been hospitalized 7 times since 09/10/2016 with COPD/CHF exacerbations and respiratory failure requiring intubation; during last admission treated for + MRSA PNA. Patient prognosis is poor. Tentative family meeting scheduled for 01/22/2017 at 2 PM to to discuss with the family the benefits and burdens of her current illnesses and the options regarding future care. . Mely Driver Jan 21, 2017 11:51
[2017-01-21] MEDS ORDERED: LEVOFLOXACIN 750 MG PREMIX INJ 150 ML IV SCH (18:00)
[2017-01-21] MEDS: FLUTICASONE 100 MCG/VILANTEROL 25 MCG INHALER INH SCH (20:03)
[2017-01-21] MEDS: ALPRAZolam 1 MG TAB PO PRN (20:44)
[2017-01-22] VITALS (42 sets, daily range): BP systolic 88–133; BP diastolic 50–65; PULSE 46–83; RESP 17–40; TEMP 98.7–99; O2SAT 81–99
[2017-01-22] MEDS: CHLORHEXIDINE GLUCONATE 2 % 1 PACK (2 CLOTHS)(taper/protocol) TOPICAL SCH (03:30)
[2017-01-22] MEDS: methylPREDNISolone SOD SUCC 125 MG/2 ML VIAL IVP SCH ×3 (03:33→16:22)
[2017-01-22] MEDS: RESP: ALBUTEROL 2.5 MG/IPRATROPIUM 0.5 MG NEB (SCH) INH ×3 (04:50→15:23)
[2017-01-22 05:06] LABS: AUTOMATED NEUTROPHIL # 6.4 TH/MM3 (1.8-7.7); BASOPHIL % 0.2 % (0.0-2.0); HEMO FLAGS DIFF FINAL; MEAN CELL VOLUME 95.8 FL (80.0-100.0); MEAN CORPUSCULAR HEMOGLOBIN 32.8 PG (27.0-34.0); MEAN CORPUSCULAR HGB CONC 34.2 % (32.0-36.0); MONO % 3.6 % (0.0-8.0); NEUT % 83.2 % (16.0-70.0); PLATELET COUNT 254 TH/MM3 (150-450); RED BLOOD COUNT 3.03 MIL/MM3 (4.00-5.30); RED CELL DISTRIBUTION WIDTH 16.6 % (11.6-17.2); WHITE BLOOD COUNT 7.7 TH/MM3 (4.0-11.0)
[2017-01-22 05:13] LABS: BICARBONATE 37.7 MEQ/L (21.0-32.0); POTASSIUM 4.2 MEQ/L (3.5-5.1)
[2017-01-22] MEDS: ALPRAZolam 1 MG TAB PO PRN ×2 (06:42→16:48)
[2017-01-22] MEDS: GABAPENTIN 300 MG CAP PO SCH (08:12)
[2017-01-22] MEDS: FERROUS SULFATE 325 MG (65 MG ELEMENTAL IRON) TAB PO SCH ×3 (08:12→16:22)
[2017-01-22] MEDS: RIVAROXABAN 20 MG TAB PO SCH (08:12)
[2017-01-22] MEDS: amLODIPine BESYLATE 5 MG TAB PO SCH (08:12)
[2017-01-22] MEDS: LACTOBACILLUS ACIDOPHILUS TAB PO SCH (08:12)
[2017-01-22] MEDS: SPIRONOLACTONE 25 MG TAB PO SCH (08:12)
[2017-01-22] MEDS: FUROSEMIDE 20 MG/2 ML VIAL IV PUSH SCH (08:12)
[2017-01-22] MEDS: DOCUSATE SODIUM 50 MG/SENNA 8.6 MG TAB PO SCH (08:12)
[2017-01-22] MEDS: guaiFENesin E.R. 600 MG TAB PO SCH (08:12)
[2017-01-22] MEDS: SODIUM CHLORIDE 0.9% FLUSH 10 ML FLUSH IV FLUSH SCH (08:13)
[2017-01-22] MEDS: LINEZOLID 600 MG TAB PO SCH (08:21)
--- NOTE | 2017-01-22 11:22 | HHI.PR ---
Subjective Remarks Follow up respiratory failure, pneumonia. Patient states that she feels better today. She did require BiPAP this morning, but is now back to nasal cannula. Denies chest pain, nausea, vomiting. Objective Vitals Vital Signs Date Time Temp Pulse Resp B/P Pulse Ox O2 Delivery O2 Flow Rate FiO2 01/22/17 10:45 60 20 107/59 93 01/22/17 10:30 62 20 117/63 93 01/22/17 10:15 50 26 91/50 94 01/22/17 10:00 51 23 88/55 94 01/22/17 09:46 52 19 94/53 95 01/22/17 09:30 51 20 107/63 92 01/22/17 09:15 50 20 101/57 91 01/22/17 09:00 50 20 101/55 91 01/22/17 08:45 51 19 106/57 92 01/22/17 08:30 52 19 109/59 92 01/22/17 08:15 83 40 108/64 89 01/22/17 08:00 98.8 51 18 107/61 93 01/22/17 07:39 96 Nasal Cannula 3.00 01/22/17 07:00 Nasal Cannula 4.00 01/22/17 06:00 50 01/22/17 04:00 51 01/22/17 04:00 99.0 51 24 133/63 96 01/22/17 02:55 94 Nasal Cannula 5.00 01/22/17 02:00 46 01/22/17 01:30 95 55 01/22/17 00:00 47 01/22/17 00:00 98.9 47 24 103/62 95 01/21/17 22:00 46 01/21/17 21:40 93 55 01/21/17 21:19 94 Nasal Cannula 5.00 01/21/17 20:00 99.0 76 22 110/64 89 01/21/17 20:00 76 01/21/17 19:00 89 Nasal Cannula 5.00 01/21/17 18:00 69 01/21/17 17:00 62 23 122/60 95 01/21/17 16:00 62 01/21/17 16:00 98.1 62 40 108/59 95 01/21/17 15:00 58 29 99 01/21/17 14:16 57 01/21/17 14:02 56 8/2/17 14:00 57 22 113/54 95 01/21/17 14:00 57 01/21/17 13:46 72 01/21/17 13:30 55 01/21/17 13:15 56 01/21/17 13:00 57 01/21/17 13:00 57 23 107/59 99 01/21/17 12:45 59 01/21/17 12:45 59 29 125/60 99 01/21/17 12:30 60 01/21/17 12:30 60 28 119/58 98 01/21/17 12:15 58 29 113/55 100 01/21/17 12:15 58 01/21/17 12:00 57 01/21/17 12:00 57 32 112/59 97 01/21/17 11:46 57 01/21/17 11:46 57 50 102/57 97 01/21/17 11:30 53 01/21/17 11:30 53 28 108/56 98 I/O 01/21/17 01/21/17 01/21/17 01/22/17 01/22/17 01/22/17 07:00 15:00 23:00 07:00 15:00 23:00 Intake Total 0 ml 780 ml 100 ml 0 ml Output Total 400 ml 375 ml 350 ml 200 ml Balance -400 ml 405 ml -250 ml -200 ml Intake Oral 0 ml 780 ml 100 ml 0 ml IV Total 0 ml 0 ml 0 ml 0 ml Output Urine Total 400 ml 375 ml 350 ml 200 ml # Bowel Movements 0 0 0 0 Result Diagram: 01/22/17 0406 01/22/17 0406 Imaging Last Impressions Chest X-Ray 01/20/17 0000 Signed Impressions: Service Date/Time: Friday, January 20, 2017 07:42 - CONCLUSION: Stable chest x-ray was underinflation and bibasilar opacity representing either atelectasis or consolidation. Jasper Head MD Objective Remarks General: Elderly female in no acute distress. Heart: Regular rate and rhythm. No murmur. Lungs: Scattered rhonchi. Breathing is nonlabored. Abdomen: Soft, nontender, nondistended. Extremities: No lower extremity edema. SCDs. Psych: Alert, confused. Procedures None Urinary Catheter: Yes Assessment to: Continue Fuentes insert reason: Prolonged Immobilization Vascular Central Line Catheter: No A/P Problem List: (1) Acute respiratory failure with hypoxia and hypercapnia ICD Code: J96.01 Status: Acute (2) COPD exacerbation ICD Code: J44.1 Status: Acute (3) Acute exacerbation of congestive heart failure ICD Code: I50.9 Status: Acute Assessment and Plan 1. Acute respiratory failure with hypoxia and hypercapnia: Appreciate pulmonology recommendations. Secondary to COPD, CHF exacerbation. Continue IV steroids, bronchodilators, supplemental oxygen. BiPAP as needed. She did have acute worsening this morning, but is now improving. 2. Pneumonia: Continue Levaquin, Zyvox. Patient had MRSA in sputum on 01/06/17. Appreciate infectious disease recommendations. Contact/droplet isolation. 3. Acute exacerbation of chronic diastolic CHF: Continue metoprolol, Lasix, spironolactone. Echo 12/05/16 showed EF 65-70% with grade 1 diastolic dysfunction. 4. History of DVT: Continue Xarelto. 5. Peripheral neuropathy: Continue gabapentin. 6. GI prophylaxis: Protonix. 7. CODE STATUS: Full code. 8. Appreciate palliative care assistance. Family meeting planned for this afternoon. The patient has had 7 hospital admissions this year and her overall prognosis is poor. Problem Qualifiers (1) Acute exacerbation of congestive heart failure: Qualified Code: I50.33 - Acute on chronic diastolic congestive heart failure Geoff Kennedy MD Jan 22, 2017 11:22
--- NOTE | 2017-01-22 16:32 | HHI.DCPOC ---
Discharge Care Plan Diagnosis: (1) Pneumonia (2) Acute respiratory failure with hypoxia and hypercapnia (3) Acute exacerbation of congestive heart failure Goals to Promote Your Health * To prevent worsening of your condition and complications * To maintain your health at the optimal level Directions to Meet Your Goals Take your medications as prescribed Follow your dietary instruction Follow activity as directed Keep your appointments as scheduled Take your immunizations and boosters as scheduled If your symptoms worsen call your PCP, if no PCP go to Urgent Care Center or Emergency Room Smoking is Dangerous to Your Health. Avoid second hand smoke Call the 24-hour hour crisis hotline for domestic abuse at Geoff Kennedy MD Jan 22, 2017 16:32
--- NOTE | 2017-01-22 16:35 | HHI.DS ---
Discharge Summary Admission Date Jan 19, 2017 at 17:09 Discharge Date: Jan 22, 2017 Admitting Diagnosis acute CHF exacerbation, COPD (1) Acute respiratory failure with hypoxia and hypercapnia ICD Code: J96.01 (2) COPD exacerbation ICD Code: J44.1 (3) Acute exacerbation of congestive heart failure ICD Code: I50.9 Procedures None Brief History - From Admission Written by Fely Adhikari, acting as scribe for Dr. Kennedy on 01/19/17 at 17:18. This is a 76 year old female patient with a past medical history which includes Arthritis, Chronic anticoagulation with Xarelto, High Cholesterol, Congestive Heart Failure, COPD on home 4 L O2 at home, Deep Vein Thrombosis x2, Fibromyalgia, Headaches, Hypertension and Thyroid Disease. Patient has had 7 admissions this calender year. Most recent admission 01/05/2017 to 01/14/2017 for acute respiratory failure secondary to sputum positive MRSA pneumonia requiring ICU admission and intubation. Patient presents to the ER via [facility] from the [facility] secondary to, "my COPD," "got real bad about 1 o'clock." Per ER triage note patient patient's SPO2 on room air 67%. Patient is on partial rebreather during interview and only able to speak a few words at a time due to SOB. Information gathered from patient as well as prior computerized charting. Patient reports that she was doing well yesterday and then today her shortness of breath got much worse today around 1300. Shortness of breath worse with talking. Shortness of breath not relieved by nebulizers. Denies fevers, chills, cough, chest pain, N/V/D/C. CBC/BMP: 01/22/17 0406 01/22/17 0406 Significant Findings Laboratory Tests Test 01/19/17 01/20/17 01/20/17 01/20/17 21:19 05:57 08:30 17:20 Total Creatine Kinase 20 U/L (26-192) Red Blood Count 3.11 MIL/MM3 (4.00-5.30) Hemoglobin 10.0 GM/DL (11.6-15.3) Hematocrit 29.9 % (35.0-46.0) Neutrophils (%) (Auto) 87.8 % (16.0-70.0) Neutrophils # (Auto) 8.0 TH/MM3 (1.8-7.7) Sodium Level 135 MEQ/L (136-145) Chloride Level 88 MEQ/L (98-107) Carbon Dioxide Level 38.4 MEQ/L (21.0-32.0) Blood Urea Nitrogen 35 MG/DL (7-18) Creatinine 1.27 MG/DL (0.50-1.00) Estimat Glomerular Filtration 41 ML/MIN (>89) Rate Random Glucose 146 MG/DL (74-106) Alkaline Phosphatase 35 U/L (45-117) Total Protein 6.2 GM/DL (6.4-8.2) Albumin 2.6 GM/DL (3.4-5.0) Urine Turbidity HAZY (CLEAR) Urine Leukocyte Esterase MOD (NEG) Urine WBC 7 /hpf (0-5) Urine Bacteria RARE /hpf (NONE) Urine Mucus FEW /lpf (OCC) Urine Yeast with Hyphae FEW (NONE) Urine Yeast (Budding) FEW (NONE) Blood Gas HCO3 40 mmol/L (22-26) Blood Gas Base Excess 14.9 mmol/L (-2-2) Blood Gas Oxygen Saturation 89 % (90-100) Arterial Blood pH 7.46 (7.380-7.420) Arterial Blood Partial 57 mmHg (38-42) Pressure CO2 Arterial Blood Partial 53 mmHG Pressure O2 (61-120) Blood Gas Hemoglobin 10.0 G/DL (12.0-16.0) Test 01/21/17 01/22/17 06:54 04:06 Red Blood Count 3.41 MIL/MM3 3.03 MIL/MM3 (4.00-5.30) (4.00-5.30) Hemoglobin 11.0 GM/DL 9.9 GM/DL (11.6-15.3) (11.6-15.3) Hematocrit 33.1 % 29.0 % (35.0-46.0) (35.0-46.0) Neutrophils (%) (Auto) 88.7 % 83.2 % (16.0-70.0) (16.0-70.0) Lymphocytes (%) (Auto) 8.3 % (9.0-44.0) Neutrophils # (Auto) 7.8 TH/MM3 (1.8-7.7) Lymphocytes # (Auto) 0.7 TH/MM3 (1.0-4.8) Sodium Level 134 MEQ/L 135 MEQ/L (136-145) (136-145) Chloride Level 88 MEQ/L 90 MEQ/L (98-107) (98-107) Carbon Dioxide Level 38.0 MEQ/L 37.7 MEQ/L (21.0-32.0) (21.0-32.0) Blood Urea Nitrogen 43 MG/DL (7-18) 50 MG/DL (7-18) Creatinine 1.40 MG/DL 1.51 MG/DL (0.50-1.00) (0.50-1.00) Estimat Glomerular Filtration 36 ML/MIN (>89) 33 ML/MIN (>89) Rate Random Glucose 113 MG/DL 145 MG/DL (74-106) (74-106) Imaging Last Impressions Chest X-Ray 01/20/17 0000 Signed Impressions: Service Date/Time: Friday, January 20, 2017 07:42 - CONCLUSION: Stable chest x-ray was underinflation and bibasilar opacity representing either atelectasis or consolidation. Jasper Head MD PE at Discharge General: Elderly female in no acute distress. Heart: Regular rate and rhythm. No murmur. Lungs: Scattered rhonchi. Breathing is nonlabored. Abdomen: Soft, nontender, nondistended. Extremities: No lower extremity edema. SCDs. Psych: Alert, confused. Hospital Course The patient was admitted for management of pneumonia, respiratory failure. She was continued on supplemental oxygen, bronchodilators, antibiotics, steroids. Pulmonology was consulted. Palliative care was consulted. The patient developed worsening respiratory distress and was transferred to the intensive care unit. She was placed on BiPAP intermittently. Palliative care met with the patient and her family. Hospice consult was requested. The patient and her family accepted hospice care and arrangements were made for her to be transferred to the care center. Pt Condition on Discharge: Guarded Discharge Disposition: Hospice/Med Facility Discharge Time: > 30 minutes Discharge Instructions DIET: Follow Instructions for: As Tolerated, No Restrictions Activities you can perform: Regular-No Restrictions Continued Medications: Acetaminophen (Tylenol) 325 Mg Tab 650 MG PO Q4H PRN PAIN 1-10 AND/OR FEVER >101F Ref 0 TAB Albuterol Neb (Albuterol Neb) 2.5 Mg/3 Ml Neb 2.5 MG NEB Q2HR NEB While awake PRN SHORTNESS OF BREATH #60 Ref 0 NEBULE Alprazolam (Xanax) 0.5 Mg Tab 0.5 MG PO Q8H PRN ANXIETY Ref 0 TAB Amlodipine (Norvasc) 5 Mg Tab 5 MG PO DAILY HYPERTENSION #30 Ref 0 TAB Bisacodyl Supp (Dulcolax Supp) 10 Mg Supp 10 MG RECTAL IN AM PRN NO RESULTS 1 DAY AFTER MOM #12 Ref [address] (Ferrous Sulfate DR) 325 Mg Tabdr 325 MG PO TIDAC Fluticasone-Vilanterol Inh (Breo Ellipta Inh) 100-25 Mcg/Act Inh 1 PUFF INH HS Use daily at the same time. COPD #1 Ref 0 INHALER Furosemide (Furosemide) 20 Mg Tab 20 MG PO DAILY Blood Pressure Management #30 TAB Gabapentin (Gabapentin) 600 Mg Tab 600 MG PO TID SCIATICA #90 Ref 0 TAB Guaifenesin (Eq Mucus ER) 600 Mg Tab 600 MG PO Q12HR Ipratropium-Albuterol Neb (Duoneb) 0.5-2.5 Mg/3 Ml Neb 1 AMPULE NEB Q4HR NEB COPD Days 30 ML Lactobacillus Acidophilus (Acidophilus) 1 Each Tablet 1 TAB PO BID Diarrhea Linezolid (Zyvox) 600 Mg Tab 600 MG PO Q12HR mrsa sputum #15 TAB Magnesium Citrate Liq (Citroma Liq) 300 Ml Liq 296 ML PO IN AM PRN IF NO RESULTS AFTER ENEMA #1 Ref 0 BOTTLE Magnesium Hydroxide Liq (Milk of Magnesia Liq) 400 Mg/5 Ml Susp 30 ML PO DAILY PRN INDIGESTION OR UPSET STOMACH #1 Ref 0 BOTTLE Metoprolol Tartrate (Metoprolol Tartrate) 25 Mg Tab 50 MG PO Q12HR Blood Pressure Management #60 TAB Oxycodone-Acetaminophen (Oxycodone-Acetaminophen) 10-325 mg Tab 1 TAB PO Q6H DO NOT USE THIS MEDICINE IF YOU WILL DRIVE A CAR OR USE A MACHINE, ONLY USE IT WHEN RESTING AT HOME. PRN PAIN #12 Ref 0 TAB Polyethylene Glycol 3350 Powder (Miralax Powder) 1 Pow Pow 17 GM PO HS Constipation Rivaroxaban (Xarelto) 20 Mg Tab 20 MG PO DAILY ANTICOAGULATION #30 Ref 0 TAB Sodium Phosphates (Enema Disposable) 1 Micki Micki 1 APPLIC RECTAL IN AM PRN IF NO RESULTS FROM SUPP Spironolactone (Spironolactone) 25 Mg Tab 12.5 MG PO DAILY #15 Ref 0 TAB Geoff Kennedy MD Jan 22, 2017 16:35
--- NOTE | 2017-01-22 16:46 | HHI.PR ---
Subjective Remarks I was advised by the RN at the patient will more than likely be going to hospice. We'll defer consultation at this time. If still active treatment will see tomorrow. Objective Vital Signs Date Time Temp Pulse Resp B/P Pulse Ox O2 Delivery O2 Flow Rate FiO2 01/22/17 10:45 60 20 107/59 93 01/22/17 10:30 62 20 117/63 93 01/22/17 10:15 50 26 91/50 94 01/22/17 10:00 51 23 88/55 94 01/22/17 09:46 52 19 94/53 95 01/22/17 09:30 51 20 107/63 92 01/22/17 09:15 50 20 101/57 91 01/22/17 09:00 50 20 101/55 91 01/22/17 08:45 51 19 106/57 92 01/22/17 08:30 52 19 109/59 92 01/22/17 08:15 83 40 108/64 89 01/22/17 08:00 98.8 51 18 107/61 93 01/22/17 07:39 96 Nasal Cannula 3.00 01/22/17 07:00 Nasal Cannula 4.00 01/22/17 06:00 50 01/22/17 04:00 51 01/22/17 04:00 99.0 51 24 133/63 96 01/22/17 02:55 94 Nasal Cannula 5.00 01/22/17 02:00 46 01/22/17 01:30 95 55 01/22/17 00:00 47 01/22/17 00:00 98.9 47 24 103/62 95 01/21/17 22:00 46 01/21/17 21:40 93 55 01/21/17 21:19 94 Nasal Cannula 5.00 01/21/17 20:00 99.0 76 22 110/64 89 01/21/17 20:00 76 01/21/17 19:00 89 Nasal Cannula 5.00 01/21/17 18:00 69 01/21/17 17:00 62 23 122/60 95 I/O 01/21/17 01/21/17 01/21/17 01/22/17 01/22/17 01/22/17 07:00 15:00 23:00 07:00 15:00 23:00 Intake Total 0 ml 780 ml 100 ml 0 ml 450 ml Output Total 400 ml 375 ml 350 ml 200 ml 500 ml Balance -400 ml 405 ml -250 ml -200 ml -50 ml Intake Oral 0 ml 780 ml 100 ml 0 ml 450 ml IV Total 0 ml 0 ml 0 ml 0 ml Output Urine Total 400 ml 375 ml 350 ml 200 ml 500 ml # Bowel Movements 0 0 0 0 0 Result Diagram: 01/22/176 01/22/17 0406 Will Ward MD Jan 22, 2017 16:46
--- NOTE | 2017-01-22 17:39 | HHI.HCPN ---
Reason for visit a. To assist with evaluation and management of symptoms including: dyspnea, confusion, debility b. To assist medical decision maker(s) with: better understanding of current medical conditions; weighing benefits/burdens of medical treatment options; making medical treatment decisions. . Subjective/Interval History Ms. Diaz is a 76-year-old female who presented to [facility] ED from the [facility] on 01/19/2017 for evaluation of shortness of breath; subsequently admitted further evaluation and medical management of CHF; on nonrebreather mask with minimal oxygen to maintain saturations at 90% and BiPAP at night if needed. Current orders for scheduled and PRN DuoNeb's; Solu-Medrol 125 mg IV 1 and then 60 mg IV every 6 hours daily; levofloxacin 750 mg IV daily. The patient has an complicated medical history with 7 acute hospitalizations since . During her most recent hospitalization (01/05/17 to 01/14/17) she was treated for acute respiratory failure secondary to sputum positive MRSA pneumonia requiring ICU admission and intubation. Patient is lethargic, ashen color. Arouses to verbal stimuli. Responds to simple questions with brief answers. Oxygen saturation in the 80s90s on nasal cannula. Remains on Solu-Medrol, Duonebs and Lasix. Febrile. Blood cultures negative to date. New Urine culture 01/20/17 growing Lyssa albicans. On Levofloxacin and 50 mg by mouth every 48 hours. Met with patient's family to discuss patient's clinical condition, ongoing acute decline. Patient has stated she "just wants to go home" and she's "tired ". Family acknowledges that the patient has become weaker and weaker; that if medical treatment goals remain aggressive she will likely never return home. They have requested to speak with someone about comfort focused care; hospice consult pending. . Advance Directives Health Care Surrogate: Copy in medical record Advance Directive Specifics Date completed: 12/17/2016 . Health Care Surrogate(s): Patient's son (Ga Diaz) is designated as the primary health care surrogate decision maker. The patient has designated her daughter (Mattie Diaz) as the alternate health care surrogate decision maker. . Documented care wishes: No documented care wishes have been completed . Significant change in goals: Patient/family has elected hospice for symptom management and end-of-life care. . Objective Vital Signs Date Time Temp Pulse Resp B/P Pulse Ox O2 Delivery O2 Flow Rate FiO2 01/22/17 16:45 74 34 115/62 81 01/22/17 16:30 63 24 113/60 88 01/22/17 16:15 60 19 107/58 91 01/22/17 16:00 98.7 57 18 105/58 93 01/22/17 15:30 63 21 117/62 94 01/22/17 15:15 63 23 108/59 93 01/22/17 15:00 69 24 117/63 84 01/22/17 14:45 65 21 117/59 87 01/22/17 14:30 59 19 110/59 88 01/22/17 14:15 59 19 109/55 89 01/22/17 14:00 66 28 110/53 84 01/22/17 13:45 65 32 112/64 86 01/22/17 13:30 64 28 125/64 88 01/22/17 13:15 65 27 117/64 90 01/22/17 13:00 62 28 114/59 95 01/22/17 12:45 62 30 113/60 94 01/22/17 12:30 68 29 111/57 88 01/22/17 12:15 57 17 112/57 99 01/22/17 12:00 58 23 113/57 96 01/22/17 11:45 66 34 96/64 87 01/22/17 11:30 64 24 103/65 89 01/22/17 11:15 62 19 101/56 91 01/22/17 11:00 57 20 112/57 96 01/22/17 10:45 60 20 107/59 93 01/22/17 10:30 62 20 117/63 93 01/22/17 10:15 50 26 91/50 94 01/22/17 10:00 51 23 88/55 94 01/22/17 09:46 52 19 94/53 95 01/22/17 09:30 51 20 107/63 92 01/22/17 09:15 50 20 101/57 91 01/22/17 09:00 50 20 101/55 91 01/22/17 08:45 51 19 106/57 92 01/22/17 08:30 52 19 109/59 92 01/22/17 08:15 83 40 108/64 89 01/22/17 08:00 98.8 51 18 107/61 93 01/22/17 07:39 96 Nasal Cannula 3.00 01/22/17 07:00 Nasal Cannula 4.00 01/22/17 06:00 50 01/22/17 04:00 51 01/22/17 04:00 99.0 51 24 133/63 96 01/22/17 02:55 94 Nasal Cannula 5.00 01/22/17 02:00 46 01/22/17 01:30 95 55 01/22/17 00:00 47 01/22/17 00:00 98.9 47 24 103/62 95 01/21/17 22:00 46 01/21/17 21:40 93 55 01/21/17 21:19 94 Nasal Cannula 5.00 01/21/17 20:00 99.0 76 22 110/64 89 01/21/17 20:00 76 01/21/17 19:00 89 Nasal Cannula 5.00 01/21/17 18:00 69 Intake & Output 01/22/17 01/22/17 07:00 19:00 Intake Total 100 ml 450 ml Output Total 550 ml 500 ml Balance -450 ml -50 ml Intake Oral 100 ml 450 ml IV Total 0 ml Output Urine Total 550 ml 500 ml # Bowel Movements 0 0 . Physical Exam CONSTITUTIONAL/GENERAL: This is an adequately nourished patient in moderate respiratory distress, ashen color TUBES/LINES/DRAINS: PIV 1 SKIN: No jaundice, rashes, or lesions. Ecchymoses on upper extremities. No wounds seen anteriorly. Skin temperature appropriate. Not diaphoretic. HEAD: Atraumatic. Normocephalic. EYES: Pupils equal and round and reactive. No scleral icterus. No injection or drainage. Fundi not examined. ENT: Hearing grossly normal. Nose without bleeding or purulent drainage. NECK: Trachea midline. CARDIOVASCULAR: Regular rate and rhythm without murmurs, gallops, or rubs. RESPIRATORY/CHEST: Appears short of breath with conversation, pursed lip breathing, accessory muscle use. GASTROINTESTINAL: Abdomen soft, non-tender, nondistended. GENITOURINARY: Without palpable bladder distension. MUSCULOSKELETAL: Extremities without clubbing, cyanosis, or edema. LYMPHATICS: No palpable cervical or supraclavicular adenopathy. NEUROLOGICAL: Lethargic. Responds to simple questions with brief answers. PSYCHIATRIC: No obvious anxiety/depression. no apparent hallucinations or other psychotic thought process. . Diagnostic Tests Laboratory Laboratory Tests Test 01/19/17 01/20/17 01/20/17 01/20/17 21:19 05:57 08:30 09:10 Total Creatine Kinase 20 U/L (26-192) 31 U/L (26-192) Troponin I 0.02 NG/ML 0.02 NG/ML (0.02-0.05) (0.02-0.05) White Blood Count 9.1 TH/MM3 (4.0-11.0) Red Blood Count 3.11 MIL/MM3 (4.00-5.30) Hemoglobin 10.0 GM/DL (11.6-15.3) Hematocrit 29.9 % (35.0-46.0) Mean Corpuscular Volume 96.2 FL (80.0-100.0) Mean Corpuscular Hemoglobin 32.2 PG (27.0-34.0) Mean Corpuscular Hemoglobin 33.5 % Concent (32.0-36.0) Red Cell Distribution Width 16.0 % (11.6-17.2) Platelet Count 262 TH/MM3 (150-450) Mean Platelet Volume 8.2 FL (7.0-11.0) Neutrophils (%) (Auto) 87.8 % (16.0-70.0) Lymphocytes (%) (Auto) 10.8 % (9.0-44.0) Monocytes (%) (Auto) 1.1 % (0.0-8.0) Eosinophils (%) (Auto) 0.0 % (0.0-4.0) Basophils (%) (Auto) 0.3 % (0.0-2.0) Neutrophils # (Auto) 8.0 TH/MM3 (1.8-7.7) Lymphocytes # (Auto) 1.0 TH/MM3 (1.0-4.8) Monocytes # (Auto) 0.1 TH/MM3 (0-0.9) Eosinophils # (Auto) 0.0 TH/MM3 (0-0.4) Basophils # (Auto) 0.0 TH/MM3 (0-0.2) CBC Comment DIFF FINAL Differential Comment Sodium Level 135 MEQ/L (136-145) Potassium Level 4.7 MEQ/L (3.5-5.1) Chloride Level 88 MEQ/L (98-107) Carbon Dioxide Level 38.4 MEQ/L (21.0-32.0) Anion Gap 9 MEQ/L (5-15) Blood Urea Nitrogen 35 MG/DL (7-18) Creatinine 1.27 MG/DL (0.50-1.00) Estimat Glomerular Filtration 41 ML/MIN (>89) Rate Random Glucose 146 MG/DL (74-106) Calcium Level 9.4 MG/DL (8.5-10.1) Total Bilirubin 0.4 MG/DL (0.2-1.0) Aspartate Amino Transf 20 U/L (15-37) (AST/SGOT) Alanine Aminotransferase 17 U/L (10-53) (ALT/SGPT) Alkaline Phosphatase 35 U/L (45-117) Total Protein 6.2 GM/DL (6.4-8.2) Albumin 2.6 GM/DL (3.4-5.0) Urine Color YELLOW (YELLW/STRAW) Urine Turbidity HAZY (CLEAR) Urine pH 5.0 (5.0-8.5) Urine Specific Dow 1.020 (1.002-1.035) Urine Protein TRACE mg/dL (NEG-TRACE) Urine Glucose (UA) NEG mg/dL (NEG) Urine Ketones NEG mg/dL (NEG) Urine Occult Blood NEG (NEG) Urine Nitrite NEG (NEG) Urine Bilirubin NEG (NEG) Urine Urobilinogen LESS THAN 2.0 MG/DL (LESS THAN 2.0) Urine Leukocyte Esterase MOD (NEG) Urine WBC 7 /hpf (0-5) Urine Squamous Epithelial <1 /hpf (0-5) Cells Urine Transitional Epithelial <1 /hpf (NONE) Cells Urine Bacteria RARE /hpf (NONE) Urine Hyaline Casts 5 /lpf (RARE) Urine Mucus FEW /lpf (OCC) Urine Yeast with Hyphae FEW (NONE) Urine Yeast (Budding) FEW (NONE) Microscopic Urinalysis Comment CATH-CULTURE IND Nasal Screen MRSA (PCR) MRSA NOT DETECTED (NOT DETECT) Test 01/20/17 01/21/17 01/22/17 17:20 06:54 04:06 Blood Gas Puncture Site RT RADIAL Blood Gas Patient Temperature 98.6 Blood Gas HCO3 40 mmol/L (22-26) Blood Gas Base Excess 14.9 mmol/L (-2-2) Blood Gas Oxygen Saturation 89 % (90-100) Arterial Blood pH 7.46 (7.380-7.420) Arterial Blood Partial 57 mmHg (38-42) Pressure CO2 Arterial Blood Partial 53 mmHG Pressure O2 (61-120) Arterial Blood Oxygen Content 12.5 Vol % (12.0-20.0) Arterial Blood 1.5 % (0-4) Carboxyhemoglobin Arterial Blood Methemoglobin 0.5 % (0-2) Blood Gas Hemoglobin 10.0 G/DL (12.0-16.0) Oxygen Delivery Device Non-Rebreathing Mask Blood Gas Liter Flow 185 L/M Blood Gas Inspired Oxygen 15 % White Blood Count 8.7 TH/MM3 7.7 TH/MM3 (4.0-11.0) (4.0-11.0) Red Blood Count 3.41 MIL/MM3 3.03 MIL/MM3 (4.00-5.30) (4.00-5.30) Hemoglobin 11.0 GM/DL 9.9 GM/DL (11.6-15.3) (11.6-15.3) Hematocrit 33.1 % 29.0 % (35.0-46.0) (35.0-46.0) Mean Corpuscular Volume 96.9 FL 95.8 FL (80.0-100.0) (80.0-100.0) Mean Corpuscular Hemoglobin 32.2 PG 32.8 PG (27.0-34.0) (27.0-34.0) Mean Corpuscular Hemoglobin 33.3 % 34.2 % Concent (32.0-36.0) (32.0-36.0) Red Cell Distribution Width 16.4 % 16.6 % (11.6-17.2) (11.6-17.2) Platelet Count 252 TH/MM3 254 TH/MM3 (150-450) (150-450) Mean Platelet Volume 8.2 FL 8.5 FL (7.0-11.0) (7.0-11.0) Neutrophils (%) (Auto) 88.7 % 83.2 % (16.0-70.0) (16.0-70.0) Lymphocytes (%) (Auto) 8.3 % 13.0 % (9.0-44.0) (9.0-44.0) Monocytes (%) (Auto) 2.5 % (0.0-8.0) 3.6 % (0.0-8.0) Eosinophils (%) (Auto) 0.0 % (0.0-4.0) 0.0 % (0.0-4.0) Basophils (%) (Auto) 0.5 % (0.0-2.0) 0.2 % (0.0-2.0) Neutrophils # (Auto) 7.8 TH/MM3 6.4 TH/MM3 (1.8-7.7) (1.8-7.7) Lymphocytes # (Auto) 0.7 TH/MM3 1.0 TH/MM3 (1.0-4.8) (1.0-4.8) Monocytes # (Auto) 0.2 TH/MM3 0.3 TH/MM3 (0-0.9) (0-0.9) Eosinophils # (Auto) 0.0 TH/MM3 0.0 TH/MM3 (0-0.4) (0-0.4) Basophils # (Auto) 0.0 TH/MM3 0.0 TH/MM3 (0-0.2) (0-0.2) CBC Comment DIFF FINAL DIFF FINAL Differential Comment Sodium Level 134 MEQ/L 135 MEQ/L (136-145) (136-145) Potassium Level 4.2 MEQ/L 4.2 MEQ/L (3.5-5.1) (3.5-5.1) Chloride Level 88 MEQ/L 90 MEQ/L (98-107) (98-107) Carbon Dioxide Level 38.0 MEQ/L 37.7 MEQ/L (21.0-32.0) (21.0-32.0) Anion Gap 8 MEQ/L (5-15) 7 MEQ/L (5-15) Blood Urea Nitrogen 43 MG/DL (7-18) 50 MG/DL (7-18) Creatinine 1.40 MG/DL 1.51 MG/DL (0.50-1.00) (0.50-1.00) Estimat Glomerular Filtration 36 ML/MIN (>89) 33 ML/MIN (>89) Rate Random Glucose 113 MG/DL 145 MG/DL (74-106) (74-106) Calcium Level 9.4 MG/DL 9.0 MG/DL (8.5-10.1) (8.5-10.1) . Result Diagram: 01/22/17 0406 01/22/17 0406 Microbiology Microbiology Date/Time Procedure Status Source Growth 01/19/17 18:15 Influenza Types A,B Antigen (CHANTAL) - Final Complete Nasal Washing NEGATIVE FOR FLU A AND B ANTIGEN.... 01/20/17 08:30 Urine Culture - Final Complete Urine Catheterized Urine Lyssa Albicans Imaging Last 72 hours Impressions Chest X-Ray 01/20/17 0000 Signed Impressions: Service Date/Time: Friday, January 20, 2017 07:42 - CONCLUSION: Stable chest x-ray was underinflation and bibasilar opacity representing either atelectasis or consolidation. Jasper Head MD . Assessment and Plan Disease Oriented Problem List: (1) Acute exacerbation of congestive heart failure Symptom Scale: (1) Debility (2) Dyspnea (3) Confusion Pertinent Non-Medical Issues Psychosocial: Patient is originally from [place], [place]. Her father in a MVA and when the patient was 4 years old. She has one sister (Madhavi) who lives in [place], [place]. The patient states they are very close. The patient was to her first for 10 years, and her second for approximately 44 years. She is . The patient had 8 children, but 2 are now . (6 living children: 4 daughters and 2 sons) She moved to [place] approximately 17 years ago and is living with her son (Ga). 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 Spiritual: Yarsanism cherise Legal: Patient's son (Ga Diaz) is designated as the primary health care surrogate decision maker. The patient has designated her daughter (Mattie Diaz ) as the alternate health care surrogate decision maker. Ethical issues impacting care: No known ethical issues impacting care at this time . Important Contacts Ga Diaz son: [phone] Mattie Diaz, daughter: [phone] . Prognosis Patient has experienced an acute decline as evidenced by 7 acute hospitalizations since 01/10/2017 with COPD exacerbations and respiratory failure requiring intubation; during last admission treated for + MRSA PNA. The length of time between readmission is becoming less and less. Patient is reporting increased weakness/fatigue, decreased appetite with associated weight loss and progressively worsening shortness of breath. Given patient's advanced age, end-stage disease processes, acute decline in functional status and multiple acute hospitalizations within a short period of time, this patient's overall prognosis is poor. Patient is hospice appropriate if/when her medical treatment goals become comfort oriented. . Code Status: Full Code Plan * FULL CODE * Decision-making: Patient son (Ga Diaz) is designated as the health care surrogate decision maker. The patient has designated her daughter (Mattie Diaz ) as the alternate health care surrogate decision maker. Patient deferring decision-making to her children on 01/20/2017. * Met with patient's family to discuss patient's clinical condition, ongoing acute decline. Patient has stated she "just wants to go home" and she's "tired ". Family acknowledges that the patient has become weaker and weaker; that if medical treatment goals remain aggressive she will likely never return home. They have requested to speak with someone about comfort focused care; hospice consult pending. Dr. Kennedy and nurse notified. * Symptom managementdyspnea: FiO2 55% on partial rebreather with oxygen saturation in the mid 90s; patient having dyspnea at rest and with conversation. 01/20/17: Stable chest x-ray with underinflation and bibasilar opacities representing either atelectasis or consolidation. Treated for + MRSA PNA during last hospitalization 01/05//-remains on IV anabiotic's. CONTACT AND DROPLET PRECAUTIONS. * Symptom managementconfusion: Patient is currently oriented to person place time and situation, intermittent confusion likely secondary to hypoxia. * Discussed with patient's nurse (Adrienne) and Dr. Kennedy. * Palliative care contact information was given to patient's family. * Palliative care will continue to follow this patient throughout her hospitalization to establish trust, assist with symptom management and clarification of medical treatment goals. . Attestation To help prompt me to consider important information that might be impacting today's encounter and assessment, information from prior notes written by myself or my colleagues may have been "brought forward" into today's note. My signature on this note, however, is an attestation that I personally performed the exam, history, and/or decision-making noted today, and, unless otherwise indicated, the interactions with patient, family, and staff as well as the review of records all occurred today. I also attest that the listed assessment and stated plan reflect my best clinical judgment today based on the combination of historical information, prior notes, and today's exam/ interactions. When time spent is documented, it refers only to time spent today by the signer, or if indicated, combined time spent today by collaborating physician/nurse practitioner. . Mely Driver Jan 22, 2017 17:39
[2017-01-22] MEDS ORDERED: METOPROLOL TARTRATE 50 MG TAB PO SCH (21:00)
== END 2017-01-22 19:00 | disposition hospice, inpatient (51) | DRG 291 ==
LOC: NEPC 14:23 → NEDA 16:38 → OBSVTOIN 17:09 → N04B 18:52 → HIME 01-20 08:00
PROVIDERS: ADMIT Family Medicine; ATTEND Family Medicine
PROC: 0T9B70Z Drainage of Bladder with Drainage Device, Via Natural or Artificial Opening (ICD-10-PCS; principal; 2017-01-20)
PROC: 5A09357 Assistance with Respiratory Ventilation, Less than 24 Consecutive Hours, Continuous Positive Airway Pressure (ICD-10-PCS; 2017-01-20)
DX: I50.33 Acute on chronic diastolic (congestive) heart failure (principal); J96.21 Acute and chronic respiratory failure with hypoxia; J18.9 Pneumonia, unspecified organism; J96.22 Acute and chronic respiratory failure with hypercapnia; J44.0 Chronic obstructive pulmonary disease with (acute) lower respiratory infection; J44.1 Chronic obstructive pulmonary disease with (acute) exacerbation; Z99.81 Dependence on supplemental oxygen; Z79.01 Long term (current) use of anticoagulants; Z51.5 Encounter for palliative care; Z86.14 Personal history of Methicillin resistant Staphylococcus aureus infection; Z87.891 Personal history of nicotine dependence; I11.0 Hypertensive heart disease with heart failure; Z86.718 Personal history of other venous thrombosis and embolism; M79.7 Fibromyalgia; E78.00 Pure hypercholesterolemia, unspecified; M19.90 Unspecified osteoarthritis, unspecified site; G62.9 Polyneuropathy, unspecified; Z86.711 Personal history of pulmonary embolism; E89.0 Postprocedural hypothyroidism; Z92.3 Personal history of irradiation; H91.90 Unspecified hearing loss, unspecified ear; G25.81 Restless legs syndrome; Z85.850 Personal history of malignant neoplasm of thyroid; M54.30 Sciatica, unspecified side; Z74.01 Bed confinement status; F41.9 Anxiety disorder, unspecified; D50.9 Iron deficiency anemia, unspecified; E78.5 Hyperlipidemia, unspecified; K57.90 Diverticulosis of intestine, part unspecified, without perforation or abscess without bleeding; Z88.1 Allergy status to other antibiotic agents; Z88.0 Allergy status to penicillin
CPT/HCPCS: 36600; 71010; 80048; 80053; 81001; 82550; 82805; 83735; 83880; 84484; 85025; 85610; 85730; 87040; 87086; 87641; 87804; 93005; 94002; 94003; 94640; 94664; 96374; 96375; J1940; J1956; J2405; J2930; J7613